=== PATIENT | male | born 1945 | race Caucasian/White ===

== ENCOUNTER 2018-03-07 08:43 | Emergency (ER) | payer MEDICARE, SELFPAY ==
[2018-03-07 08:45] VITALS: BP 151/104; PULSE 72; RESP 18; TEMP 36.7; O2SAT 96; BMI 35.6
--- NOTE | 2018-03-07 08:59 | CT_ITS ---
STUDY: CT ABDOMEN AND PELVIS WITH CONTRAST REASON FOR EXAM: Male, 72 years old. Low back pain. History of aortic aneurysm graft, looking for complications. RADIATION DOSAGE (If Supplied By Facility): CTDIvol = ( 36.48 ) mGy, DLP = ( 1317.71 ) mGycm TECHNIQUE: Transaxial images were obtained from the dome of the diaphragm to the symphysis pubis without oral contrast. 100CC ml of Isovue 370 contrast was administered. Sagittal and coronal images were reconstructed. Individualized dose optimization techniques were used for this CT. COMPARISON: None. FINDINGS: The visualized lung bases are unremarkable. Diffuse coronary artery calcifications are present. Normal liver. Normal gallbladder and extrahepatic biliary system. Normal spleen. Normal pancreas. Normal bilateral adrenal glands. Normal right kidney. Normal left kidney. Normal visualized stomach. Normal small intestine. Normal colon. The appendix is visualized and appears normal. There is an anterior abdominal aortic stent extending to the iliac arteries demonstrating patency of contrast extending to the femoral arteries. Inferior abdominal aortic aneurysm surrounding the stents measures 4.9 cm in diameter. The aneurysm surrounding the left iliac artery measures 2.8 cm with noted adequate internal flow. There is luminal narrowing of the proximal posterior left external iliac artery. Normal inferior vena cava. Normal retroperitoneum. Normal urinary bladder. There is enlargement of the prostate gland. There is a bilateral inguinal hernia containing adipose tissue. There is near complete disc space loss at L2-3 with mild anterolisthesis and spondylolysis at this level. CT/Abdomen/Pelvis W IV Cont ONLY IMPRESSION: 1. Abdominal aortic graft extending to the iliac arteries with no evidence of extravasation adequate flow extending to the femoral arteries bilaterally. The infrarenal aortic aneurysm surrounding the stented region measures 4.9 cm. Otherwise no evidence of acute intra-abdominal process. Electronically Signed: Corbin Escamilla DO at 10:54 EDT , Service support ,
--- NOTE | 2018-03-07 09:04 | ED.DCSUM_ITS ---
- ER Visit Summary Date of Service: 03/07/18 Chief Complaint: [] Pain abdominal pain started 5 AM today History of Present Illness: The patient is a 72 M [] an aorto by femoral graft bypass 1 year ago, CABG about 25 years ago, chronic back pain related to lumbar disc disease, he basically reports his chronic low back pain seem to intensify at 5 AM for unspecified reasons he is having no numbness or weakness or paresthesias but pain in the lumbar back that shoots into the anterior abdominal region. He indicates he does not feel this if he has any signs of arterial insufficiency or occlusion his feet feel warm and well perfused he has had no chest pain or vomiting he has had no trauma to his back normal bowel bladder habits other than report he feels slightly constipated, the pain was intense intensity that he came in for evaluation he believes that the aortic aneurysm graft was placed and then he believes he had bilateral femoral grafting Patient has had severe back pain in the past has been told by his clinical physicians he has lumbar spine degenerative disc disease, they were basically waiting for him to heal from his abdominal aortic aneurysm graft and abdominal hernia repair surgery and then pursue other management options, his back pain status has been stable and exacerbated at 5 AM this morning for unspecified reasons Physical Examination: [] L signs are within normal range she is in no distress she is perfectly still HEENT is unremarkable his lungs are clear the heart tones are normal the abdomen is soft he indicates his abdominal hernia surgery he has a mesh over his umbilicus this area is really unremarkable there is no rebound guarding organomegaly the abdomen is slightly distended I do not feel pulsatile mass, his lower extremities appear well-perfused he has no obvious signs of occlusion his femoral pulses are hard to palpate but appear to be 1+ he is able to stand and walk without difficulty he can heel raise toe raise bend his knees there is no signs of cauda equina he has no perineal anesthesia, the lumbar back he has pain over the mid lumbar back his flanks are unremarkable the C-spine T-spine are unremarkable with no trauma to the back Test Results: [] Emergency Department Course and Treatment: [] rather extensive we will obtain CT scanning to check for graft patency or other complications pain management screening labs The patient's abdominal CT with contrast shows that the aortic abdominal aneurysm graft and resulting vascular grafts are all patent and there is no signs of leak or hemorrhage the other intra-abdominal content organs are all unremarkable so the abdominal pelvic CT shows nothing acute see that report, we had them reconstruct the lumbar spine films and the CT lumbar spine shows severe diffuse DJD which the patient has had before Reevaluation is feeling much better he is moving all 4 extremities he has been up walking about he understands test results he wants to go home at this time he is taking aspirin related to platelet therapy, he will take Tylenol for the pain for Tylenol does not help he will be given [place] to use as needed and otherwise follow-up with [facility] physicians and return for change in symptoms again he has no signs of cauda equina back fracture etc. he has had this in the past markedly improved now Treatment Plan: [] Disposition: [] Home stable Impression: [] Lumbar back strain history of diffuse lumbar back degenerative disorder This note was generated with [employer] dictation software. It may contain incorrect words, spelling, and punctuation that were not noted in review of the chart prior to signing ED Disposition - Plan for ED Patient: Chief Complaint: Back Referrals: Silvestre Young III, MD [Primary Care Provider] -
[2018-03-07] MEDS: morphine 8 MG/ML Syringe IV (09:22)
[2018-03-07] MEDS: Ondansetron 4 MG/2 ML Vial IV (09:22)
[2018-03-07 09:29] LABS: Basophil# 0.01 X10^3/uL; Basophil% 0.1 % (0-1); Eosinophil# 0.13 X10^3/uL; Eosinophils% 1.4 % (0-5); Hematocrit 42.8 % (40-54); Hemoglobin 14.5 g/dl (13.0-16.5); Lymphocyte % 52.2 % (19-41); Mean Corp Hgb Conc 33.9 g/gl (32-36); Mean Corpuscular Hgb 31.9 pg (27.0-32.0); Mean Corpuscular Volume 94.1 fL (80-94); Mean Platelet Vol. 9.5 fl (6.2-12.0); Monocyte# 0.41 X10^3/uL; Monocyte% 4.3 % (0-10); Neutrophil # 4.01 X10^3/uL (2.7-7.7); Neutrophil % 41.9 % (47-70); Platelet Count 92 K/mm3 (150-450); RBC Distribution Width CV 13.2 % (11.6-14.6); RBC Distribution Width SD 45.2 fl (35.1-43.9); Red Blood Count 4.55 M/mm3 (4.6-6.2); White Blood Count 9.6 K/mm3 (4.4-11.0)
[2018-03-07 09:30] LABS: POSITIVE COUNT NO; POSITIVE DIFFERENTIAL NO; POSITIVE MORPHOLOGY NO
[2018-03-07 09:48] LABS: AST(SGOT) 29 U/L (15-37); Alanine Aminotransfer ALT/SGPT 33 U/L (16-61); Alkaline Phosphatase 92 U/L (45-117); Anion Gap 4 (5-15); BUN 22 mg/dL (7-18); BUN/Creat Ratio 19.6 RATIO (10-20); Bilirubin, Direct 0.24 mg/dL (0.00-0.30); Calcium,Total 8.4 mg/dL (8.5-10.1); Chloride 110 mmol/L (98-107); Creatinine, Serum 1.12 mg/dL (0.70-1.30); EST Glomerular Filtration Rate 68 mL/min (>60); Est Glom Filt Rate - Afr Amer 82 mL/min (>60); Estimated Creatinine Clearance 65.39 ml/min; Globulin 3.1 g/dL (2.2-4.2); Glucose 111 mg/dL (74-106); Lipase 214 U/L (73-393); Potassium 4.2 mmol/L (3.5-5.1); Protein, Total 7.1 g/dL (6.4-8.2); Sodium Level 142 mmol/L (136-145)
--- NOTE | 2018-03-07 10:00 | CT_ITS ---
STUDY: CT LUMBAR SPINE WITHOUT CONTRAST REASON FOR EXAM: Male, 72 years old. Low back pain. RADIATION DOSAGE (If Supplied By Facility): Reconstruction TECHNIQUE: The patient was scanned in a multi detector CT scanner. High resolution transaxial imaging was performed. Images were obtained from lower thoracic to sacrum. Sagittal and coronal images were reconstructed. Individualized dose optimization techniques were used for this CT. COMPARISON: None FINDINGS: Normal lumbar lordosis. There is no substantial scoliosis. Normal vertebrae of the lumbar spine. L1-2: Normal endplates. Normal disc height and morphology. Normal bilateral facet joints. Normal central canal and bilateral lateral recesses. Normal bilateral intervertebral neural foramina. L2-3: There is near complete loss of disc space with endplate sclerosis. There is mild anterolisthesis uncovering the disc space resulting in moderate to severe bilateral foraminal narrowing at this level. There is compounding spondylolysis of the pars interarticularis. L3-4: Decreased disc space and bilateral spondylolysis with grade 1 mild anterolisthesis resulting in moderate to severe bilateral foraminal narrowing. L4-5: Mild decreased disc space and circumferential disc bulge without associated spinal canal narrowing or foraminal narrowing. L5-S1: Mild degenerative disc changes with broad-based disc bulge and compounding facet arthropathy resulting in moderate to severe bilateral foraminal narrowing. There is bilateral spondylolysis at this level. Normal visualized paraspinous soft tissue structures. CT/Spine Lumbar without Contrast IMPRESSION: 1. Multilevel spondylolysis at L1/2, L2/3, and L5/S1. 2. L1/2 loss of disc space and Modic endplate changes with grade 1 anterolisthesis resulting in moderate bilateral foraminal narrowing. 3. L3/4 mild anterolisthesis secondary to spondylolysis with resultant moderate to severe bilateral foraminal narrowing. 4. L4/5 broad-based disc bulge resulting in severe bilateral foraminal narrowing with compounding spondylolysis. Electronically Signed: Corbin Escamilla DO at 12:28 EDT , Service support ,
[2018-03-07] MEDS: 0.9% Normal Saline 1,000 ML 125 ML IV (11:17)
--- NOTE | 2018-03-07 11:18 | ED.RN ---
AT 1117 THE MORPHINE 4MG IVP WAS GIVEN DUE TO PT'S C/O PAIN AT 8. INITIAL DOSE WAS FOR 8 MG IVP AND ONLY 4MG WAS GIVEN BY KOJO CLARKE RN.
[2018-03-07 11:22] VITALS: BP 131/70; PULSE 58; RESP 16; O2SAT 95
[2018-03-07 11:22] LABS: Bacteria 0 SEEN /hpf (None Seen); Mucous, Urine 0 SEEN /hpf (<or=2+); Red Blood Cells-Urine 0 SEEN /hpf (0-5); Squamous Epithelial Cells - UA 0 SEEN /hpf (0-5)
[2018-03-07 11:23] LABS: Color, Urine Yellow (Yellow); Glucose, Dipstick Normal (Normal); Ketone-Dipstick Negative (Negative); Leukocyte Esterase-Dipstick 25 /ul (Negative); Nitrite-Dipstick Negative (Negative); Occult Blood-Urine 25 /ul (Negative); Protein-Dipstick 15 mg/dl (Negative); Urine Bilirubin Dipstick Negative (Negative); Urine Clarity Clear (Clear); Urine Urobilinogen Normal (Normal); Urine pH 6.5 (5.0 - 8.0)
[2018-03-07 11:29] LABS: White Blood Cells 0-5 SEEN /hpf (0-5)
--- NOTE | 2018-03-07 12:40 | ED.DEP ---
ED Disposition - Plan for ED Patient: Chief Complaint: Back Instructions: ED Spasm Back No Trauma Prescriptions: Hydrocodone Bitart/Apap 5-325 [[place] 5/325] 1 - 2 tab PO Q4H PRN PRN #12 tab PRN Reason: Pain Referrals: Silvestre Young III, MD [Primary Care Provider] -
[2018-03-07 13:00] VITALS: BP 102/75; PULSE 56; RESP 16; O2SAT 96
[2018-03-07 13:08] VITALS: BP 102/75; PULSE 56; RESP 16; O2SAT 96
== END 2018-03-07 13:20 | disposition home or self-care (01) ==
LOC: ED 09:21
PROVIDERS: Emergency Provider Emergency Medicine; Family Provider Family Medicine; PCP Family Medicine
DX: S39.012A Strain of muscle, fascia and tendon of lower back, initial encounter (principal); M51.36 Other intervertebral disc degeneration, lumbar region; M54.5 Low back pain; G89.29 Other chronic pain; I25.10 Atherosclerotic heart disease of native coronary artery without angina pectoris; Z95.1 Presence of aortocoronary bypass graft; Z79.82 Long term (current) use of aspirin; Z79.899 Other long term (current) drug therapy; X58.XXXA Exposure to other specified factors, initial encounter; Y93.9 Activity, unspecified; Y92.9 Unspecified place or not applicable; Y99.9 Unspecified external cause status
CPT/HCPCS: 72131; 74177; 80048; 80076; 81001; 83690; 85025; 96361; 96374; 96375; 99283; J7030; J7040; Q9967; J2405

== ENCOUNTER 2018-05-13 11:30 | Outpatient (RCR) | payer MEDICARE, SELFPAY ==
--- NOTE | 2018-03-17 11:00 | HP.PTEVAL_ITS ---
Patient's Visit Information SILVIANO GONZALEZ is a 72 year old M referred to Physical Therapy by Silvestre Young with a diagnosis of LUMBAR BACK PAIN. Date of Evaluation: 03/17/18 Physical Therapist: Luz Nelson - Visit Plan Frequency: 2-3x /Week Duration: 4-6 Weeks Plan: AQUATIC THERAPY FOR POSTURE CORRECTION/STRENGTHENING, INSTRUCTION IN APPROPRIATE BODY MECHANICS AND ACTIVITY MODIFICATIONS. DLS STARTING WITH A NEUTRAL SPINE PROGRESSING ROM TOLERATED. SID LE ROM, STRETCHING AND STRENGTHENING. HEP INSTRUCTION. - Subjective Subjective: Diagnosis: Work/Leisure: RETIRED. Disability: NO. Present symptoms: LOW BACK PAIN THAT RADIATES LATERALLY AND INTO ABDOMEN. Present since: February. Pain Scale: WORST 8/10, LEAST 0/10. Currently: . Commenced as a result of: LONG DRIVE BACK FROM [place] TAKING A BREAK EVERY 2 HOURS FOR 2 DAYS. Symptoms at onset: SAME. Worse: PRONLONGED STANDING AND WALKING. WORSE IN THE MORNING. Better: SKTC, LTR, SWIMMING, SITTING, LYING DOWN. Disturbed sleep: YES - BOTHERSOME TO GET TO SLEEP. Previous history/Previous treatment: CHRONIC LOW BACK PAIN. PT. CHIROPRACTOR. NO MASSAGE THERAPY. NO INJECTION. NO BACK SURGERY. Coughing/ sneezing/straining: NO. Gait: PAINFUL TO WALK. DECREASED CADANCE. MORE OFF BALANCE LATELY. Difficulty initiating urinatin: NO. Accidents: NO. Unexplained weight loss: NO. Imaging: February - MRI: SEVERE ARTHRITIS IN LUMBAR AREA. NO OTHER CHANGES. PMH: HTN, HIGH CHOLESTEROL. NO STROKE. 2 HEART ATTACKS. Recent major surgery: MOST RECENT WAS ABOUT 18 MONTHS AGO - 3 STENTS IN [place]. ABDOMINAL HERNIA REPAIR. QUADRUPLE BYPASS 26 YEARS AGO. OTHER: PATIENT REPORTS HE HAS NOT SEEN A SURGEON AND SURGERY HAS NOT BEEN RECOMMENDED. - Objective Sitting Posture: POOR. Standing Posture: POOR. Lordosis: REDUCED. Lateral shift: RIGHT. Relevant shift: NO. Active Correction of posture: NE. Other Observations: INDEP GAIT INTO PT WITH INCREASED TRUNK FLEXION, DECREASED CADANCE AND DECREASED SID STRIDE LENGTH. NO LOB. SID LE EDEMA. Motor deficit : SID LE WEAKNESS IN HIPS RIGHT > LEFT. RIGHT HIP 3+/5, LEFT HIP 4-/5. SID KNEE EXT/FLEX 5/5. SID ANKLE DORSIFLEX 5/5. Sensory deficit: SID LE LIGHT TOUCH SENSATION IS INTACT AND SYMMETRICAL. ROM deficit: TIGHT SID HIP FLEXORS , HAMSTRINGS AND GASTROC SOLEUS COMPLEX'S. Dural Signs: NEGATIVE SID LE'S. Lumbar mvmt loss: flex - MOD. ext - MELIDA. R SG - MELIDA. L SG - MELIDA. SID SG TESTING PROVOKES INCREASED LBP AND LEFT SG IS RESTRICTED MORE THAN RIGHT. Core strength: POOR. Palpation: NO ACUTE TENDERNESS WITH LUMBOSACRAL AND SID HIP PALPATION. - Goals Goal 1:: DECREASE C/O BACK PAIN Goal Time Frame: 4-6 Weeks Goal 2:: IMPROVE PERSONAL CARE, LIFITNG, WALKING, SITTING, STANDING, AND ADL FUNCTION Goal Time Frame: 4-6 Weeks Goal 3:: INSTRUCT IN PROPHYLAXIS Goal Time Frame: 4-6 Weeks - Rehabilitation Potential Rehabilitation Potential: Fair - Anticipated Interventions Patient/Client Instruction: Educate patient on: Condition, Plan of Care, Risk Factors, Benefits of Fitness Program For the Purpose of:: To improve self management Therapeutic Exercise to Include: Strength training, Body mechanics, Postural training, Flexibilty training, Gait and locomotor training, In an aquatic setting, Active ROM, Dynamic Lumbar Stabilization For the Purpose of:: To decrease pain, To increase ROM, To improve muscle performance and motor function, To increase tolerance to activity/condition/ position, To improve performance and independence with ADL's, To improve ability of physical actions for home/community/work/leisure, To improve gait and locomotor functions Thank you for the opportunity to evaluate your patient. For Medicare and Medicare HMO plans, please review the plan of care and approve it. It will need to be FAXED BACK to us at [phone] for Medicare purposes. Please let me know if there are questions or concerns regarding this plan of care. Physician Signature: Date:
--- NOTE | 2018-05-13 12:02 | HP.PTDCSUM ---
HP - PT D/C Summary It has been my pleasure to treat SILVIANO GONZALEZ under orders from Silvestre Young, for the diagnosis of LUMBAR BACK PAIN for a total of 10 visit(s). Discharge Date: Please see the following information for a summary of their discharge status. - Subjective Subjective: PATIENT REPORTS HE CAN MOVE MORE FREELY NOW. 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 HE REPORTS HIS FLEXABILITY, MOBILITY AND ACTIVITY LEVEL IS BETTER. HE PLANS TO KEEP MOVING. PATIENT PLANS TO CONTINUE AT [employer]. PATIENT REPORTS HE HAS REALLY LEARNED A LOT. - Pain Lumbar spine Pain Intensity (Out of 10): 0 - Overall Improvement % Improvement: 100 - Objective Objective/Function: ALL GOALS MET. THIS PATIENT AMBULATES INDEP'LY INTO PT TODAY WITHOUT ANY ASSISTIVE DEVICES AND NO LOSS OF BALANCE. HE DENIES PAIN. UPON EXAM TODAY, Motor deficit: SID LE'S 5/5 WITH MMT'ING EXCEPT HIPS - RIGHT 4-/5 AND LEFT 4/5. ROM deficit: TIGHT SID HIP FLEXORS, HAMSTRINGS AND GASTROC SOLEUS COMPLEX'S CONTINUES. Dural Signs: NEGATIVE SID LE'S. Lumbar mvmt loss: flex - MOD. ext - MELIDA. R SG - MELIDA. L SG - MELIDA. PATIENT DENIES PAIN WITH LUMBAR ROM TESTING ALL PLANES BUT SIGNIFICANT TIGHTNESS REMAINS. Palpation: NO ACUTE TENDERNESS WITH LUMBOSACRAL AND SID HIP PALPATION. BACK OSWESTRY SCORE HAS IMPROVED FROM 13 TO 6. - Goals Goal 1:: DECREASE C/O BACK PAIN Goal Progress: Goal Met Goal 2:: IMPROVE PERSONAL CARE, LIFITNG, WALKING, SITTING, STANDING, AND ADL FUNCTION Goal Progress: Goal Met Goal 3:: INSTRUCT IN PROPHYLAXIS Goal Progress: Goal Met - Plan Plan: D/C TO [facility] - PATIENT IS AGREEABLE. - D/C Information If there are questions or concerns regarding this patient's physical therapy, please feel free to call me at [phone]. Thank you for the referral of this patient. Sincerely, Luz Nelson
== END 2018-05-13 16:18 | disposition home or self-care (01) ==
LOC: PT 11:30
PROVIDERS: Family Provider Family Medicine; PCP Family Medicine; Visit Provider Family Medicine
DX: M54.5 Low back pain (principal)
CPT/HCPCS: 97113; 97162; 97164; 97530

== ENCOUNTER 2019-08-19 14:48 | Outpatient (RCR) | payer SELFPAY | END 2019-08-23 23:59 | LOC: NS 14:48 | PROVIDERS: Family Provider Family Medicine; PCP Family Medicine; Visit Provider Family Medicine | DX: Z71.3 Dietary counseling and surveillance (principal); E66.9 Obesity, unspecified; I25.10 Atherosclerotic heart disease of native coronary artery without angina pectoris | CPT/HCPCS: 97802 ==

== ENCOUNTER 2019-09-02 11:28 | Outpatient (RCR) | payer SELFPAY | END 2019-09-23 23:59 | LOC: NS 11:28 | PROVIDERS: Family Provider Family Medicine; PCP Family Medicine; Visit Provider Family Medicine | DX: E66.9 Obesity, unspecified (principal) | CPT/HCPCS: 97803 ==

== ENCOUNTER → 2020-04-07 08:17 | Outpatient (CLI) | payer MEDICARE, SELFPAY ==
[2020-04-04 11:05] VITALS: BMI 34.2
[2020-04-07 09:33] LABS: AST(SGOT) 31 U/L (15-37); Alanine Aminotransfer ALT/SGPT 45 U/L (16-61); Albumin, Serum 3.8 g/dL (3.2-5.0); Alkaline Phosphatase 87 U/L (45-117); Bilirubin, Direct 0.19 mg/dL (0.00-0.30); Cholesterol 136 mg/dL (200); Globulin 3.1 g/dL (2.2-4.2); High Density Lipoprotein 51 mg/dL; Protein, Total 6.9 g/dL (6.4-8.2); Triglycerides 81 mg/dL; Very Low Density Lipoprotein 16 mg/dL (5-40)
== END ==
PROVIDERS: PCP Family Medicine; Referring Provider Internal Medicine Cardiovascular Disease; Visit Provider Internal Medicine Cardiovascular Disease
DX: E78.5 Hyperlipidemia, unspecified (principal); I25.10 Atherosclerotic heart disease of native coronary artery without angina pectoris; I25.2 Old myocardial infarction
CPT/HCPCS: 36415; 80061; 80076

== ENCOUNTER → 2020-05-02 09:18 | Outpatient (CLI) | payer MEDICARE, SELFPAY ==
[2020-04-04 11:05] VITALS: BMI 34.2
--- NOTE | 2020-05-02 09:19 | STEWCON_ITS ---
Reason For Study: CAD; S/P CABG Stress Results Protocol: Modified Simeon Protocol With Definity Maximum Predicted HR: 144 bpm Target HR: 122 bpm % Maximum Predicted HR: 97 % DurationHeart Rate Stage (mm:ss) (bpm) BP Comment Baseline 68 122/78No Chest Pain; 3 ML Diluted Definity Modified Simeon Protocol Stage 0 3:00 68 122/78No Chest Pain Modified Simeon Protocol Stage 1/2 3:00 140 72/ No Chest Pain; Mild Dyspnea Modified Simeon Protocol Stage 1 1:11 120 / No Chest Pain; Mod Dyspnea Recovery 68 124/74No Chest Pain Stress Duration: 7:11 mm:ss Maximum Stress HR: 140 bpm METS: 4 Baseline Echocardiogram Findings The estimated ejection fraction is 55 %. Stress Echo Wall motion Data Resting WM Intermediate WM Stress WM Resting Wall Motion Wall Motion Stress No regional wall motion Anterio-Basal: Mildly abnormalities noted. hypokinetic. Basal anteroseptal: Mildly hypokinetic. Mid-Anterior : Mildly hypokinetic. EKG Data The baseline ECG displays normal sinus rhythm. The maximum heart rate attained was 120 beats per minute. This was 83% of maximum predicted heart rate. The patient exercised into stage 1 of the Simeon protocol. The stress ECG displays diffuse abnormal ST segments. No clinical angina was noted. Interpretation Summary The estimated ejection fraction is 55 %. Anterio-Basal: Mildly hypokinetic Basal anteroseptal: Mildly hypokinetic Mid-Anterior : Mildly hypokinetic Abnormal, adequate, modified Simeon treadmill echocardiogram. Positive for ischemia by EKG and echocardiographic criteria. No anginal symptoms noted. Rare PAC and PVCs noted. Patient developed [address] diffuse inferior lateral ST segment depression at 7 minutes 11 seconds into modified Simeon protocol which persisted until 2 minutes 50 seconds into recovery. In addition he had evidence of possible anteroseptal hypokinesis. Final LVEF of 45 to 50%. Test terminated due to dyspnea. Poor echo windows requiring Definity agent which may affect results of the test. Patient tolerated procedure well. No complications. The study was technically difficult. Contrast injection was performed. Ordering Physician: Rogelio Barnett Referring Physician: Silvestre Young III Performed By: Gigi Hawkins RCS
== END ==
PROVIDERS: PCP Family Medicine; Referring Provider Internal Medicine Cardiovascular Disease; Visit Provider Internal Medicine Cardiovascular Disease
DX: I25.10 Atherosclerotic heart disease of native coronary artery without angina pectoris (principal); I25.2 Old myocardial infarction; Z95.1 Presence of aortocoronary bypass graft; E78.5 Hyperlipidemia, unspecified
CPT/HCPCS: 93017; 93350; Q9957; A4216; C8928

== ENCOUNTER 2020-05-17 07:56 | Day surgery (SDC) | payer MEDICARE, SELFPAY ==
[2020-04-04 11:05] VITALS: BMI 34.2
--- NOTE | 2020-05-15 10:13 | RAD_ITS ---
STUDY: X-RAY CHEST REASON FOR EXAM: Male, 74 years old. Pre-op for heart catheter TECHNIQUE: PA and lateral views of the chest. COMPARISON: 11/04/2016 FINDINGS: There are chronic interstitial changes of the lungs. There is no demonstrated pleural abnormality. Sternal cerclage wires and vascular clips are present from a prior sternotomy and coronary artery bypass graft procedure (CABG). Normal mediastinum and aiden. Normal visualized pulmonary arteries. Normal visualized aortic arch and descending thoracic aorta. There are diffuse degenerative changes of the visualized thoracic spine. There is degenerative osteoarthritis of the bilateral shoulders. There is no demonstrated abnormality of the visualized soft tissue structures of the upper abdomen. RAD/Chest PA and Lateral IMPRESSION: Chronic interstitial changes, no superimposed acute pulmonary process. Electronically Signed: Cameron Joaquin MD at 11:20 EDT , Service support ,
[2020-05-15 11:35] LABS: Hematocrit 42.2 % (40-54); Hemoglobin 14.1 g/dL (13.0-16.5); Mean Corp Hgb Conc 33.4 g/dL (32-36); Mean Corpuscular Hgb 31.9 pg (27.0-32.0); Mean Corpuscular Volume 95.5 fL (80-94); Platelet Count 100 K/mm3 (150-450); Red Blood Count 4.42 M/mm3 (4.6-6.2); White Blood Count 12.3 K/mm3 (4.4-11.0)
[2020-05-15 11:43] LABS: International Normalized Ratio 1.2; Partial Thromboplast Time 31.5 Seconds (24.1-36.2); Prothrombin Time (Protime)PT. 14.4 SECONDS (11.7-14.9)
[2020-05-15 11:50] LABS: Anion Gap 5 (5-15); BUN 19 mg/dL (7-18); BUN/Creat Ratio 18.4 RATIO (10-20); Chloride 108 mmol/L (98-107); Creatinine, Serum 1.03 mg/dL (0.70-1.30); Glucose 125 mg/dL (74-106); Potassium 3.8 mmol/L (3.5-5.1); Sodium Level 141 mmol/L (136-145)
[2020-05-16 12:16] VITALS: BMI 34.2
--- NOTE | 2020-05-16 13:27 | HP.PCM_ITS ---
History and Physical Date of Admission: 05/16/20 SILVIANO GONZALEZ, is a 74 M who is here today to undergo a diagnostic heart cath for an abnormal stress test. He recently established with us for coronary artery disease. He is a former patient of Dr. Motta. The patient has a history of hypertension, hypercholesterolemia, nondiabetic, peripheral vascular disease with carotid artery stenosis as well as AAA stent graft on 11/07/2016 at [facility] with Dr Young,, coronary artery disease status post myocardial infarction 1990 with balloon angioplasty only to his right coronary artery. He then had a repeat myocardial infarction after a stress test in 1991 and then underwent four-vessel bypass surgery at [place] with unknown grafts in 1991, status post myocardial infarction on 12/20/2019 while down in [place] after undergoing cervical neck surgery. Due to his recent surgery he did not undergo a catheterization. In addition he has chronic lymphocytic leukemia and gets treated in [place]. His EKG postoperatively demonstrated sinus tachycardia with anterolateral ST segment depression and T wave inversion superimposed on baseline old inferior wall myocardial infarction. His EKG eventually normalized and on 12/24/2019 had gone back to normal without evidence of ST segment changes. Peak troponin T was 0.76. His most recent noninvasive non-walking nuclear stress test took place the [facility] on 10/01/2016 which was negative for inducible ischemia. His most recent echocardiogram at an outside facility in [place] after his neck surgery on 12/11/2019 showed an EF of 50 to 55%, technically difficult study, negative bubble study, no wall motion abnormalities noted. Patient presents for cardiac evaluation, and denies any chest pain, angina, shortness of breath or dyspnea on exertion either prior to or subsequent to his neck surgery. He is taking and tolerating his medicines well. Pt is a former smoker, quit tobacco 2009 after 25 pack year history. Stress echo demonstrated estimated ejection fraction is 55 %. Anterio-Basal: Mildly hypokinetic Basal anteroseptal: Mildly hypokinetic Mid-Anterior : Mildly hypokinetic Abnormal, adequate, modified Simeon treadmill echocardiogram. Positive for ischemia by EKG and echocardiographic criteria. No anginal symptoms noted. Rare PAC and PVCs noted. Patient developed 1 mm diffuse inferior lateral ST segment depression at 7 minutes 11 seconds into modified Simeon protocol which persisted until 2 minutes 50 seconds into recovery. In addition he had evidence of possible anteroseptal hypokinesis. Final LVEF of 45 to 50%. Test terminated due to dyspnea. Poor echo windows requiring Definity agent which may affect results of the test. Patient tolerated procedure well. No complications. The study was technically difficult. Contrast injection was performed. Because of this he will undergo a heart cath. Intake Intake Visit Reasons: Amb Documentation Allergies Penicillins Allergy (Verified 03/07/18 08:44) Hives doxycycline Adverse Reaction (Intermediate, Verified 04/03/20 15:39) GI intolerance PFSH Medical History Abnormal stress echo (Acute) Chronic lymphocytic leukemia (Chronic) Cervical stenosis of spinal canal (Chronic 12/10/19) Arteriosclerosis of coronary artery in patient with history of myocardial in farction (Chronic) History of WA (myocardial infarction) (Chronic 12/20/19) Carotid artery stenosis without cerebral infarction (Chronic) Essential hypertension (Chronic) Hyperlipidemia (Chronic) Surgical History S/P CABG x 4 (Chronic 1991) History of endovascular stent graft for abdominal aortic aneurysm (AAA) (Chronic 11/07/16) History of cervical spinal surgery (Chronic 12/20/19) Social History Smoking Status: Former smoker Cardiology Exam Const Appearance: cooperative, no acute distress and well developed Orientation: alert, awake and oriented x3 Head Head: normocephalic and atraumatic Mouth: moist mucous membranes Eyes General: appearance normal, both eyes and all related structures Conjunctivae: conjunctivae normal Pupils: PERRL EOM: EOM intact bilaterally Neck Neck: normal visual inspection, no lymphadenopathy and no JVD Carotids: Negative bruit Neck Mass: Negative Neck mass Chest Chest inspection: normal inspection of the chest and symmetric chest movement Auscultation: Bilateral: Clear to Auscultation Cardio Palpation: normal PMI Rate: regular rate Rhythm: regular rhythm Heart sounds: S1 normal and S2 normal; negative rub, gallop or murmur GI GI: normal to inspection, soft, no hepatosplenomegaly and bowel sounds present; negative tender Neuro General: alert, awake, oriented x3, CN's II-XI intact bilaterally and moves all extremities Extremities Pulses: Normal: Right Posterior Tibial Pulse, Left Posterior Tibial Pulse, Right Radial Pulse, Left Radial Pulse Lower Extremity Edema: None: Bilateral Psych Psychological: normal affect Assessment & Plan Problems 1. Abnormal stress echo R94.39 2. Arteriosclerosis of coronary artery in patient with history of myocardial infarction I25.10; I25.2 Apparently pt had previous WA prior to CABG in 1991 3. S/P CABG x 4 Z95.1 Done @ [facility], we do not have report. 4. History of endovascular stent graft for abdominal aortic aneurysm (AAA) Z95.[address] Yan Young, 11/07/2016 @ [facility] 5. Essential hypertension I10 6. Hyperlipidemia E78.5 Plan - DELON Story With his abnormal stress test he will undergo a diagnostic heart cath today. Based on findings he will follow up accordingly. Procedure Criteria: Yes Elective The surgeon/proceduralist and patient have discussed in detail the risk of exposure to and/or potential harm posed by the COVID-19 virus with having a surgery/procedure at this time versus the risk of delaying the surgery/procedure. It is not possible to know either the risk of delaying the surgery or procedure or chance of getting an infection with perfect accuracy, but a joint decision was made between the patient and the surg sugar/proceduralist to proceed at this time with the scheduled surgery/procedure as indicated on the consent form.
[2020-05-17] VITALS (21 sets, daily range): BP systolic 101–136; BP diastolic 50–84; PULSE 51–65; RESP 12–23; TEMP 36.7–36.9; O2SAT 94–98; BMI 34.4
--- NOTE | 2020-05-17 09:16 | HP.PCM_ITS ---
Problem List (1) Abnormal stress echo Status: Acute (2) Arteriosclerosis of coronary artery in patient with history of myocardial infarction Status: Chronic Comment: Apparently pt had previous AL prior to CABG in 1991 (3) History of endovascular stent graft for abdominal aortic aneurysm (AAA) Status: Chronic Comment: Per Dr. Yan Young, 11/07/2016 @ [facility] (4) Hyperlipidemia Status: Chronic History and Physical Date of Admission: 05/17/20 LIVE [facility] History and Physical (Generic) Patient Name: SILVIANO GONZALEZ Date of : 1945 Patient Status: Surgical Day Care Attending Provider: Rogelio Barnett Date: 05/16/20 13:27 Initialization Date: 05/16/20 13:27 History and Physical Date of Admission: 05/16/20 SILVIANO GONZALEZ, is a 74 M who is here today to undergo a diagnostic heart cath for an abnormal stress test. He recently established with us for coronary artery disease. He is a former patient of Dr. Motta. The patient has a history of hypertension, hypercholesterolemia, nondiabetic, peripheral vascular disease with carotid artery stenosis as well as AAA stent graft on 11/07/2016 at [facility] with Dr Young,, coronary artery disease status post myocardial infarction 1990 with balloon angioplasty only to his right coronary artery. He then had a repeat myocardial infarction after a stress test in 1991 and then underwent four-vessel bypass surgery at [place] with unknown grafts in 1991, status post myocardial infarction on 12/20/2019 while down in [place] after undergoing cervical neck surgery. Due to his recent surgery he did not undergo a catheterization. In addition he has chronic lymphocytic leukemia and gets treated in [place]. His EKG postoperatively demonstrated sinus tachycardia with anterolateral ST segment depression and T wave inversion superimposed on baseline old inferior wall myocardial infarction. His EKG eventually normalized and on 12/24/2019 had gone back to normal without evidence of ST segment changes. Peak troponin T was 0.76. His most recent noninvasive non-walking nuclear stress test took place the [facility] on 10/01/2016 which was negative for inducible ischemia. His most recent echocardiogram at an outside facility in [place] after his neck surgery on 12/11/2019 showed an EF of 50 to 55%, technically difficult study, negative bubble study, no wall motion abnormalities noted. Patient presents for cardiac evaluation, and denies any chest pain, angina, shortness of breath or dyspnea on exertion either prior to or subsequent to his neck surgery. He is taking and tolerating his medicines well. Pt is a former smoker, quit tobacco 2009 after 25 pack year history. Stress echo demonstrated estimated ejection fraction is 55 %. Anterio-Basal: Mildly hypokinetic Basal anteroseptal: Mildly hypokinetic Mid-Anterior : Mildly hypokinetic Abnormal, adequate, modified Simeon treadmill echocardiogram. Positive for ischemia by EKG and echocardiographic criteria. No anginal symptoms noted. Rare PAC and PVCs noted. Patient developed 1 mm diffuse inferior lateral ST segment depression at 7 minutes 11 seconds into modified Simeon protocol which persisted until 2 minutes 50 seconds into recovery. In addition he had evidence of possible anteroseptal hypokinesis. Final LVEF of 45 to 50%. Test terminated due to dyspnea. Poor echo windows requiring Definity agent which may affect results of the test. Patient tolerated procedure well. No complications. The study was technically difficult. Contrast injection was performed. Because of this he will undergo a heart cath. Intake Intake Visit Reasons: Amb Documentation Allergies Penicillins Allergy (Verified 03/07/18 08:44) Hives doxycycline Adverse Reaction (Intermediate, Verified 04/03/20 15:39) GI intolerance [facility] Medical History Abnormal stress echo (Acute) Chronic lymphocytic leukemia (Chronic) Cervical stenosis of spinal canal (Chronic 12/10/19) Arteriosclerosis of coronary artery in patient with history of myocardial infarction (Chronic) History of AL (myocardial infarction) (Chronic 12/20/19) Carotid artery stenosis without cerebral infarction (Chronic) Essential hypertension (Chronic) Hyperlipidemia (Chronic) Surgical History S/P CABG x 4 (Chronic 1991) History of endovascular stent graft for abdominal aortic aneurysm (AAA) (Chronic 11/07/16) History of cervical spinal surgery (Chronic 12/20/19) Social History Smoking Status: Former smoker Cardiology Exam Const Appearance: cooperative, no acute distress and well developed Orientation: alert, awake and oriented x3 Head Head: normocephalic and atraumatic Mouth: moist mucous membranes Eyes General: appearance normal, both eyes and all related structures Conjunctivae: conjunctivae normal Pupils: PERRL EOM: EOM intact bilaterally Neck Neck: normal visual inspection, no lymphadenopathy and no JVD Carotids: Negative bruit Neck Mass: Negative Neck mass Chest Chest inspection: normal inspection of the chest and symmetric chest movement Auscultation: Bilateral: Clear to Auscultation Cardio Palpation: normal PMI Rate: regular rate Rhythm: regular rhythm Heart sounds: S1 normal and S2 normal; negative rub, gallop or murmur GI GI: normal to inspection, soft, no hepatosplenomegaly and bowel sounds present; negative tender Neuro General: alert, awake, oriented x3, CN's II-XI intact bilaterally and moves all extremities Extremities Pulses: Normal: Right Posterior Tibial Pulse, Left Posterior Tibial Pulse, Right Radial Pulse, Left Radial Pulse Lower Extremity Edema: None: Bilateral Psych Psychological: normal affect Assessment & Plan Problems 1. Abnormal stress echo R94.39 2. Arteriosclerosis of coronary artery in patient with history of myocardial infarction I25.10; I25.2 Apparently pt had previous AL prior to CABG in 1991 3. S/P CABG x 4 Z95.1 Done @ [facility], we do not have report. 4. History of endovascular stent graft for abdominal aortic aneurysm (AAA) Z95.[address] Yan Young, 11/07/2016 @ [facility] 5. Essential hypertension I10 6. Hyperlipidemia E78.5 Plan - DELON Story With his abnormal stress test he will undergo a diagnostic heart cath today. Based on findings he will follow up accordingly. Procedure Criteria: Yes Elective The surgeon/proceduralist and patient have discussed in detail the risk of exposure to and/or potential harm posed by the COVID-19 virus with having a surgery/procedure at this time versus the risk of delaying the surgery/procedure. It is not possible to know either the risk of delaying the surgery or procedure or chance of getting an infection with perfect accuracy, but a joint decision was made between the patient and the surgeon/proceduralist to proceed at this time with the scheduled surgery/procedure as indicated on the consent form. Interventional cardiology addendum: Patient was seen and examined on day procedure, and the risk/benefits of the procedure were thoroughly explained the patient including specific attention to lack of onsite surgical backup. Patient is agreed to proceed. Left heart cath with grafts to follow.
--- NOTE | 2020-05-17 11:23 | CL.I_ITS ---
Patient Name: SILVIANO GONZALEZ Study Date: 05/17/2020 Performing: Rogelio Barnett MD Ht: 72.83 inches 185 cm : 1945 Wt: 260.15 lbs 118 kg Age: 74 Gender: male BSA: 2.4 Amended PROCEDURE(S) PERFORMED EQ42-GZS/COR/LV/CABG [id number] W OR WO PTCA, SINGLE CORONARY ARTERY [id number] W OR WO PTCA, EACH ADD'L ARTERY, SAME MAJOR [id number] ROOT ANGIO WITH HEART CATH CLINICAL PROFILE AND CO-MORBIDITIES Indications: Stable Known CAD, LV Dysfunction Heart Failure: NYHA Class: 1, Newly Diagnosed: No, Heart Failure Type: Systolic Stress/Imaging Date: 05/02/2020 Stress Echocardiogram: Positive Intermediate Risk of ischemia Angina Classification Anginal Classification w/in 2 Weeks: Anginal Equivalent Dyspnea CAD Presentations: Other: arango Comorbidities/Risk Factors: Hypertension Dyslipidemia Prior CHF Prior CABG Peripheral Arterial Disease CONCLUSIONS Triple vessel CAD of the LCX, LAD and RCA Widely patent LIU to LAD Widely patent CRYSTAL to RCA with multiple indirect injections; very tortuous right subclavian. Probably occluded SVGs x 2 to unknown arteries(CABG report not available.) Segmented LV systolic dysfunction- Mild Successful PTCA/CLAUDINE proximal OM#1 with a 2.25 x 16 Promus Synergy; 85%-->0%, no dissection. Successful PTCA/CLAUDINE mid LCX with a 2.25 x 16 Promus Synergy, post dilated proximally with a 2.5 x 8 N C Balloon; 75%-->0%, no dissection. RECOMMENDATIONS Referred for immediate PCI Highly recommend quitting all tobacco products Follow up with primary chief building inspector Risk factor modification ASA Indefinitley Plavix for at least 12 months Routine post interventional care Refer for Outpatient Cardiac Rehab Manual sheath removal per protocol Follow up with Dr. Barnett PFTS in 2 weeks Successful Mynx Control closure of RFA. DESCRIPTION OF PROCEDURE The patient arrived to the procedure lab. The risks and benefits of the procedure as well as a full d escription of our services here and lack of surgical backup were fully explained to the patient and/o r their significant other prior to the catheterization. The Timeout was completed, verifying the adwoa ect patient and procedure. The patient's procedural site was prepped and draped in the usual fashion. Local anesthetic was given subcutaneously to right groin region with Lidocaine 2%. Using a modified Seldinger technique, arterial access was obtained via the right femoral artery, a 4Fr 45cm sheath was inserted. Left Coronary Artery selective angiography was performed in multiple views using a 4 Fr. JL5 catheter. Right Coronary Artery selective angiography was then performed in multiple views using a 4 Fr. 3DRC catheter. Left internal mammary artery graft to the LAD selective angiography was perfor med in multiple views using a 4 Fr. 3DRC catheter. Saphenous Vein graft to the unknown artery (occluded graft) selective angiography was performed in single view using a 4 Fr. AR MOD 2 cat heter. Right internal mammary artery graft to the RCA selective angiography was performed in multiple views using a 4 Fr. 3DRC catheter. Right internal mammary artery graft to the RCA selective angiogra phy was performed in multiple views using a 6 Fr. JR 4 catheter. Left Ventriculography was performed in YDER projection using a 4 Fr. Pigtail catheter. LV to AO pullback pressures were then recordedThe i mages were reviewed and options discussed. A decision was then made to proceed with an Intervention, IVUS or other adjunct procedure. EBU 3.75 Guide catheter was inserted and engaged into the LCA. BMW #1 Guide wire was advanced to the Circumflex. BMW #2 Guide wire was advanced to the 1st OM. 2.0x8 Emerge Balloon catheter was advan chriss across lesion in the first obtuse marginal, proximal. PTCA balloon inflated at 8 atms for 11 secs . Angiogram performed post balloon dilatation. 2.25x16 synergy Drug Eluting stent was advanced across the lesion in the first obtuse marginal, proximal. 2.0x8 Emerge Balloon catheter was advanced across lesion in the circumflex, mid. PTCA balloon inflated at 8 atms for 13 secs. 2.25x16 Synergy Drug Elu ting stent was advanced across the lesion in the circumflex, mid. 2.5x8 NC Emerge Balloon catheter wa s inserted post stent. Balloon catheter was advanced across lesion in the circumflex, mid. Angiogram performed post stent deployment. The arterial sheath was pulled and a Mynx closure device was deplo yed for hemostasis CORONARY ANGIOGRAPHY DOMINANCE: Right Dominant LEFT HEART ASSESSMENT Left Ventricular Ejection Fraction: by LV Gram 55 % Depressed Left Ventricular systolic function Inferior Basal Hypokinesis - Mild LEFT MAIN: Angiographically normal LEFT ANTERIOR DESCENDING ARTERY: is occluded CIRCUMFLEX ARTERY: PROX CIRC: Mild luminal irregularities less than 30% MID CIRC: 75 % Stenosis OM 1: Proximal - 85 % Stenosis RIGHT CORONARY ARTERY: is occluded GRAFTS: LIU graft to the Mid LAD is patent CRYSTAL graft to the RCA is patent AORTIC ROOT: No evidence of patent SVG to any vessels. INTERVENTION INFORMATION LESION SITE: 1st OM (Proximal) Lesion Complexity: Non-High/Non-C, lesion at bifurcation: No, lesion length: 16 mm, thrombus present: No, culprit lesion: Yes Pre Stenosis: 85 % Pre intervention ERAN flow: 3 PROCEDURE: Drug Eluting Stent with pre dilatation. Post Stenosis: 0 % Post intervention ERAN flow: 3 Lesion Devices: Wilkinson .014 BMW [place] Straight 190cm Wilkinson .014 BMW [place] Straight 190cm Medtronic 6 Fr EBU3.75 100cm Guide Catheter Edgar Sci EMERGE MR 2.00x08 BALLOON Edgar Sci Synergy MR CLAUDINE 2.25x16 LESION SITE: Circumflex (Mid) Lesion Complexity: Non-High/Non-C, lesion at bifurcation: No, thrombus present: No, lesion length: 16 mm, culprit lesion: No Pre Stenosis: 75 % Pre intervention ERAN flow: 3 PROCEDURE: Drug Eluting Stent with pre and post dilatation Post Stenosis: 0 % Post intervention ERAN flow: 3 Lesion Devices: Wilkinson .014 BMW [place] Straight 190cm Wilkinson .014 BMW [place] Straight 190cm Medtronic 6 Fr EBU3.75 100cm Guide Catheter Edgar Sci EMERGE MR 2.00x08 BALLOON Edgar Sci Synergy MR CLAUDINE 2.25x16 COMPLICATIONS No Complications PROCEDURE MEDICATIONS Oxygen: 2 L/min via nasal cannula Heparin 6000 unit(s) IV 05/17/2020 10:35:31 Nitro 200 mcg IC 05/17/2020 10:45:04 Nitro 200 mcg IC 05/17/2020 10:45:04 IV Bolus: .9 NaCl 550 ml total 05/17/2020 11:08:17 SUMMARY OF HEMODYNAMIC DATA Time AIR REST ECG 09:23:59 AO 144/78 (107) SA 09:30:56 AO 134/72 (101) 09:40:38 LV 139/-16, 17 10:30:47 LV 134/-17, 22 10:30:54 LVp 135/-16, 24 10:30:59 AOp 132/63 (93) 10:31:04 AO 145/49 (94) 10:31:13 Signed By Rogelio Barnett MD On 06/21/2020 2:45:16 PM Signed By Rogelio Barnett MD On 05/17/2020 11:22:52 AM Rogelio Barnett MD
--- NOTE | 2020-05-17 11:44 | EKG12_ITS ---
Test Reason : AM EKG Blood Pressure : / mmHG Vent. Rate : 056 BPM Atrial Rate : 056 BPM P-R Int : 180 ms QRS Dur : 108 ms QT Int : 448 ms P-R-T Axes : 075 040 025 degrees QTc Int : 432 ms Sinus bradycardia Inferior infarct , age undetermined, cannot be excluded Abnormal ECG Confirmed by MAXIMUS ROSADO, NOEL ([id number]), rewrite editor YEIMI GIBSON ([id number]) on 05/23/2020 11:19:29 AM Referred By: Rogelio Barnett Confirmed By:NOEL STROUD MD
[2020-05-17] MEDS: 0.9% Normal Saline 1,000 ML 150 ML IV (12:47)
[2020-05-17 13:26] LABS: ACT Activated Clotting Time 186 sec (74-137)
--- NOTE | 2020-05-17 14:08 | CRPHASE1 ---
Patient Communication PHII Cardiac Rehab Discussed with Patient:: Yes Guide to Cardiac Rehab Given to Patient:: Yes Cardiac Rehab Facility Choice List Given to Patient:: Yes Choice Program [facility] CR PHII:: Communication Given to CR, Refer to [facility] Refer Phase II Cardiac Rehab:: Yes - to take place after discharge Cardiac Rehabilitation Info Cardiac Rehabilitation Program Information: Cardiac Rehabilitation is important for patients like you who are recovering from a heart problem. Cardiac rehabilitation programs are recognized as integral to the continued care of the patient with coronary heart disease. The cardiac rehabilitation program is designed to optimize a patient's physical, psychological, and social functioning. Health coronary care unit nurse work in cardiac rehabilitation programs and assist you with getting the treatments you need to get stronger and healthier - like exercise, healthy eating habits, and medications. Cardiac rehabilitation has been show to help people with heart problems live longer and have better life enjoyment than people who do not go to cardiac rehabilitation. Please contact the Cardiac Rehabilitation Program at [facility] at in two weeks if you have not heard from them.
--- NOTE | 2020-05-17 14:10 | CRPH1.INSTRU ---
General Education CAD and cardiac anatomy and function:: Patient communicates acknowledgment Explanation of diagnoses and procedures:: Patient communicates acknowledgment Sign/Symptoms of CT:: Patient communicates acknowledgment Antiplatelet therapy: Patient communicates acknowledgment Proper use of NTG-SL: Patient communicates acknowledgment Emergency procedures and activation of EMS: Patient communicates acknowledgment Compliance of all prescribed medications: Patient communicates acknowledgment Smoking Recommendations Include:: Previous smoker; encourage continued cessation Nicotine/Smoking Response Code:: Patient communicates acknowledgment Dyslipidemia Patient Dyslipidemia Risk Factors Are:: Total Cholesterol - 136, Triglycerides - 81, HDL - 51, LDL - 69 Recommendations Include:: Therapeutic Lifestyle Change dietary guidelines Dyslipidemia Response Code:: Patient communicates acknowledgment Overweight/Obesity Patient Overweight/Obesity Risk Factors Are:: Obesity - > or = 30 Recommendations Include:: Weight loss of 5-10%, Reduced calorie diet, Exercise 5-7 times/week Overweight/Obesity:: Patient communicates acknowledgment
[2020-05-17] MEDS: Tamsulosin HCl 0.4 MG Capsule PO ×2 (17:22→17:42)
[2020-05-17] MEDS: Atorvastatin Calcium 40 MG Tablet PO (22:18)
[2020-05-18] VITALS (12 sets, daily range): BP systolic 97–115; BP diastolic 49–74; PULSE 49–70; RESP 11–19; TEMP 36.4–36.7; O2SAT 94–98
[2020-05-18 04:42] LABS: Hematocrit 38.6 % (40-54); Mean Corp Hgb Conc 33.7 g/dL (32-36); Mean Corpuscular Hgb 31.9 pg (27.0-32.0); Mean Corpuscular Volume 94.8 fL (80-94); Mean Platelet Vol. 9.8 fl (6.2-12.0); POSITIVE COUNT YES; Platelet Count 82 K/mm3 (150-450); RBC Distribution Width CV 12.9 % (11.6-14.6); RBC Distribution Width SD 44.2 fl (35.1-43.9); Red Blood Count 4.07 M/mm3 (4.6-6.2); White Blood Count 10.2 K/mm3 (4.4-11.0)
[2020-05-18 04:53] LABS: ALB/GLOB Ratio 1.2 RATIO (0.9-2.4); AST(SGOT) 22 U/L (15-37); Alanine Aminotransfer ALT/SGPT 34 U/L (16-61); Albumin, Serum 3.4 g/dL (3.2-5.0); Alkaline Phosphatase 77 U/L (45-117); Anion Gap 6 (5-15); BUN 19 mg/dL (7-18); BUN/Creat Ratio 18.8 RATIO (10-20); Calcium,Total 8.3 mg/dL (8.5-10.1); Chloride 107 mmol/L (98-107); Creatinine, Serum 1.01 mg/dL (0.70-1.30); EST Glomerular Filtration Rate 76 mL/min (>60); Est Glom Filt Rate - Afr Amer 92 mL/min (>60); Estimated Creatinine Clearance 68.29 ml/min; Globulin 2.8 g/dL (2.2-4.2); Glucose 110 mg/dL (74-106); Potassium 3.8 mmol/L (3.5-5.1); Protein, Total 6.2 g/dL (6.4-8.2); Sodium Level 140 mmol/L (136-145)
[2020-05-18 05:29] LABS: POSITIVE DIFFERENTIAL NO; Scan Indicated on CBC? Y/N YES- FLAGS NOTED
--- NOTE | 2020-05-18 08:54 | PCM.PN.CARD ---
Subjectve: Patient seen and examined, doing quite well. Telemetry negative. Right groin is clean/dry/intact, no thrills, bruits or hematoma. Hemoglobin and creatinine are within nominal limits. EKG shows normal sinus rhythm, old inferior wall myocardial infarction, no acute changes. Objective: Vital Signs Temp Pulse Resp BP Pulse Ox 97.6 F L 67 18 115/74 98 05/18/20 04:00 05/18/20 08:00 05/18/20 08:00 05/18/20 08:00 05/18/20 08:00 Oxygen Delivery Method Room Air Weight: 260 lb 9.382 oz Body Mass Index (BMI) 34.4 Intake and Output for Last 24 Hours 05/16/20 05/17/20 05/18/20 23:59 23:59 23:59 Intake Total 1240 / 1480 360 / 360 Output Total 375 / 375 250 / 250 Balance 865 / 1105 110 / 110 General: Awake, Alert, Oriented x 3 HEENT: PERRL, EOMI, Sclera Non Icteric Neck: Supple, Good ROM, No Lymph Node Enlargement Lungs: Clear to auscultation Cardiovascular: Regular Rhythm, Normal S1, Normal S2, No Murmurs, No Rubs, No Gallops Vascular: No Carotid Bruits, Normal Femoral Pulses, Normal Radial Pulses, Normal Dorsalis Pedal Pulse, Normal Posterior Tibial Pulses Abdomen: Bowel Sounds Present, Soft, Non Tender, No HSM, No Organomegaly Extremities: No Cyanosis, No Clubbing, No edema Neurological: No Focal Motor or Sensory Deficit 05/18/20 04:10: WBC 10.2, RBC 4.07 L, Hgb 13.0, Hct 38.6 L, MCV 94.8 H, MCH 31.9, MCHC 33.7, Plt Count 82 L, MPV 9.8 05/18/20 04:10: Sodium 140, Potassium 3.8, Chloride 107, Carbon Dioxide 27.0, Anion Gap 6, BUN 19 H, Creatinine 1.01, Est GFR (MDRD) Af Amer 92, Est GFR (MDRD) Non-Af 76, BUN/Creatinine Ratio 18.8, Glucose 110 H, Calcium 8.3 L, Total Bilirubin 0.70 Rhythm: EKG: ECHO: Stress Test: Cardiac Cath: PCI: CT Surgery: Holter monitor: EPS: PPM: CXR: Chest CT Scan: Medical Necessity - Tobacco Use Smoking Status: Former smoker Assessment/Plan 1. Coronary artery disease: Patient status post angioplasty and stenting x2 to his left circumflex and obtuse marginal. Patient has known severe critical coronary artery disease including an occluded LAD and occluded right coronary artery. His vein grafts x2 to unknown destinations are occluded, and his LIU to his LAD is patent as well as his CRYSTAL to the right coronary artery. At this point the patient will continue baby aspirin, Plavix, and be enrolled in cardiac rehab in 2 weeks time. He will continue his antihypertensive medications including Coreg and lisinopril. 2. Hyperlipidemia: Continue Lipitor therapy. Repeat lipid profile in 6 weeks time. 3. Patient may be discharged home to follow-up with Dr. Barnett going forward. Inpatient E&M: 31342 Subs Hosp L2
--- NOTE | 2020-05-18 09:02 | PCM.DC.CCA ---
Discharge Diet: Low fat/ Low Cholesterol Discharge Activity: Return to Normal Activity May shower in (days): 1 Lifting Restrictions: 10 pounds and also avoid any pushing or pulling for 3 days after your test. Call your doctor if your incision/area has: Continuous Slow Oozing, Sudden Increased Bleeding, Increased Pain/ Swelling, Increased Redness, Foul Smelling Discharge, Swelling at the incision site Call your doctor if you observe: Fever of 101 or Higher, Chest pain Remove Dressing in (days):: 1 Additional Dressing/Incision Instructions:: Keep the dressing (bandage) on until the next morning. You may then shower, but do not take a tub bath for 5 days after your test. It is normal to have some tenderness and discomfort at the puncture site. Sometimes bruising also occurs. However, if pain, numbness, or coldness occurs below the puncture site (in your leg, toes, arms or fingers) call your doctor at once. You may have a small, marble sized knot at the puncture site. This is normal. Do not rub it. It will go away in 4-6 weeks. Bleeding can occur from the area where the puncture was done. Blood may spurt or drip from the site. If blood spurts, apply pressure right away to stop bleeding and call 911. Although rare, bleeding into the tissue (hematoma) can also occur. If this happens, a large, firm area goose egg under the skin will appear. If any of these occur, lie down as flat as you can and have someone apply firm pressure to the cath site with a gauze pad or a clean washcloth for 10-15 minutes. Call 911 or go to the Emergency Department. Additional Instructions: You need to stay on your Plavix for at least one year prior to stopping for any reason. When I see you in the office we will further discuss cardiac rehab. Coreg was added to your medications. A prescription was sent to [facility] this is a twice a day medication Allergies/Adverse Reactions: Allergies Penicillins Allergy (Verified 03/07/18 08:44) Hives doxycycline Adverse Reaction (Intermediate, Verified 04/03/20 15:39) GI intolerance Medications to take at Discharge lisinopril 20 mg-hydrochlorothiazide 12.5 mg tablet 1 tab PO DAILY 04/03/20 tamsulosin 0.4 mg capsule 0.4 mg PO DAILY 04/03/20 aspirin 81 mg tablet,delayed release 81 mg PO DAILY 04/04/20 atorvastatin 40 mg tablet 40 mg PO QHS 04/04/20 clopidogrel 75 mg tablet 75 mg PO DAILY #30 tab 04/04/20 Carvedilol [Coreg (Beta Nicole)] 3.125 mg PO BID #60 tab 05/18/20 The following prescriptions were given: Carvedilol [Coreg (Beta Nicole)] 3.125 mg PO BID #60 tab Transmission Status: Pending to [id number] Primary Care Physician: Silvestre Young III, MD [Primary Care Provider] - Test Results: Test results from this visit will be discussed in further detail at your follow-up appointment, if applicable. Please Follow Up With: Tawny Avalos PA When: at scheduled in office (06/06) Cardiac Rehabilitation Info Cardiac Rehabilitation Program Information: Cardiac Rehabilitation is important for patients like you who are recovering from a heart problem. Cardiac rehabilitation programs are recognized as integral to the continued care of the patient with coronary heart disease. The cardiac rehabilitation program is designed to optimize a patient's physical, psychological, and social functioning. Health child care center administrator work in cardiac rehabilitation programs and assist you with getting the treatments you need to get stronger and healthier - like exercise, healthy eating habits, and medications. Cardiac rehabilitation has been show to help people with heart problems live longer and have better life enjoyment than people who do not go to cardiac rehabilitation. Please contact the Cardiac Rehabilitation Program at [facility] at in two weeks if you have not heard from them.
[2020-05-18] MEDS: Carvedilol 3.125 MG TABLET PO (09:26)
--- NOTE | 2020-05-18 10:00 | EKG12_ITS ---
Test Reason : PCI Blood Pressure : / mmHG Vent. Rate : 059 BPM Atrial Rate : 059 BPM P-R Int : 182 ms QRS Dur : 104 ms QT Int : 436 ms P-R-T Axes : 075 058 048 degrees QTc Int : 431 ms Sinus bradycardia Otherwise normal ECG Confirmed by MAXIMUS ROSADO, NOEL ([id number]), assistant editor YEIMI GIBSON ([id number]) on 05/23/2020 11:19:52 AM Referred By: Rogelio Barnett Confirmed By:NOEL STROUD MD
== END 2020-05-18 10:09 | disposition home or self-care (01) ==
LOC: CLSP 07:57 → ICU 11:33
PROVIDERS: PCP Family Medicine; Referring Provider Internal Medicine Cardiovascular Disease; Visit Provider Internal Medicine Cardiovascular Disease
DX: I25.10 Atherosclerotic heart disease of native coronary artery without angina pectoris (principal); R94.39 Abnormal result of other cardiovascular function study; I10 Essential (primary) hypertension; E78.00 Pure hypercholesterolemia, unspecified; I73.9 Peripheral vascular disease, unspecified; I25.2 Old myocardial infarction; C91.10 Chronic lymphocytic leukemia of B-cell type not having achieved remission; R00.0 Tachycardia, unspecified; E78.5 Hyperlipidemia, unspecified; I11.0 Hypertensive heart disease with heart failure; I50.20 Unspecified systolic (congestive) heart failure; R06.00 Dyspnea, unspecified; I25.82 Chronic total occlusion of coronary artery; I49.3 Ventricular premature depolarization; Z87.891 Personal history of nicotine dependence; Z95.1 Presence of aortocoronary bypass graft; Z79.02 Long term (current) use of antithrombotics/antiplatelets; Z79.899 Other long term (current) drug therapy; Z79.82 Long term (current) use of aspirin; I77.1 Stricture of artery; Q24.8 Other specified congenital malformations of heart; R93.1 Abnormal findings on diagnostic imaging of heart and coronary circulation
CPT/HCPCS: 36415; 71046; 80047; 80053; 85027; 85347; 85610; 85730; 92928; 92929; 93005; 93459; 93567; C1760; J7030; J7040; C1725; C1769; C1874; C1887; C1894; C9600; C9601; Q9967

== ENCOUNTER → 2020-06-06 07:48 | Outpatient (CLI) | payer MEDICARE, SELFPAY ==
[2020-05-17 12:24] VITALS: BMI 34.4
--- NOTE | 2020-06-06 07:57 | CR.HP_ITS ---
CR - History & Physical - General Arrival date:: 06/06/20 Arrival time:: 08:01 Date of Referral:: 05/18/20 Date of CR Evaluation:: 06/06/20 Referring Physician: DR. LINCOLN BRINK Primary Diagnosis: S/P PCI W/CORONARY STENTING - History of Present Cardiac Event Onset Date: Enter Onset Date of cardiac illnesses in Comment field below Acute Myocardial Infarction within 12 months:: No Coronary Artery Bypass Graft:: Yes - 1991 PTCA or coronary stenting:: Yes - 05/17/2020 TWO STENTS PLACED. Type of Symptoms:: ABNORMAL STRESS ECHO Interventions with present event:: AFTER FINDINGS OF STRESS ECHO TAKEN TO AMBULANCE DISPATCHER FOR FURTHER EXAMINATION Were there any complications?: NONE - Medications Home Medications: Ambulatory Orders Medication Instructions Recorded lisinopril 20 1 tab PO DAILY 04/03/20 mg-hydrochlorothiazide 12.5 mg tablet tamsulosin 0.4 mg capsule 0.4 mg PO DAILY 04/03/20 aspirin 81 mg tablet,delayed 81 mg PO DAILY 04/04/20 release atorvastatin 40 mg tablet 40 mg PO QHS 04/04/20 clopidogrel 75 mg tablet 75 mg PO DAILY #30 tab 04/04/20 Carvedilol [Coreg (Beta Nicole)] 3.125 mg PO BID #60 tab 05/18/20 - Allergies Allergies/Adverse Reactions: Allergies Penicillins Allergy (Verified 03/07/18 08:44) Hives doxycycline Adverse Reaction (Intermediate, Verified 04/03/20 15:39) GI intolerance - Sleep Disorder Evaluation Hx of Sleep Apnea: No Do you snore loudly (louder than talking or can be heard through closed doors)?: No Do you often feel tired/ fatigued/ sleepy during daytime?: Yes Has anyone observed you stop breathing during sleep?: No History of Hypertension (for STOP score): Yes STOP Results: Positive Advanced Directives - Advanced Directives Power of Court Advocate: Yes Living Will: Yes Advance Directives Information Provided: No Advance Directives on File: No DNR Order?:: No - MOLST See MOLST form: No Past Medical History - Past Medical Illness Medical History: Past Medical History (Last Reviewed 05/16/20 @ 13:28 by DELON Story) Abnormal stress echo (Acute) R94.39 Chronic lymphocytic leukemia (Chronic) C91.10 Sees oncologist when in [place] Cervical stenosis of spinal canal (Chronic) Onset Date: 12/10/19 M48.02 CVA was ruled out with MRI; pt had critical cervical spinal stenosis with right sided weakness. Arteriosclerosis of coronary artery in patient with history of myocardial infarction (Chronic) I25.10, I25.2 Apparently pt had previous WI prior to CABG in 1991 History of WI (myocardial infarction) (Chronic) Onset Date: 12/20/19 I25.2 S/P Cervical Laminectomy 12/20/2019. Pt had previous WI's in 1990 (prior to POBA of RCA) and 1991 (prior to CABG X4). Carotid artery stenosis without cerebral infarction (Chronic) I65.29 Essential hypertension (Chronic) I10 Hyperlipidemia (Chronic) E78.5 - Past Surgical History Surgical History: Past Surgical History (Last Updated 05/18/20 @ 16:24 by Siobhan Bryant) Stented coronary artery (Chronic) Onset Date: 05/17/20 Z95.5 Triple vessel CAD of the LCX, LAD and RCA. Widely patent LIU to LAD. Widely patent CRYSTAL to RCA with multiple indirect injections; very tortuous right subclavian. Probably occluded SVGs x 2 to unknown arteries(CABG report not available). Segmented LV systolic dysfunction- Mild Successful PTCA/CLAUDINE proximal OM#1 with a 2.25 x 16 Promus Synergy:Successful PTCA/CLAUDINE mid LCX with a 2.25 x 16 Promus Synergy 05/17/2020 per ESA @ [facility]. S/P CABG x 4 (Chronic) Onset Date: 1991 Z95.1 Done @ [facility], we do not have report. History of endovascular stent graft for abdominal aortic aneurysm (AAA) (Chronic) Onset Date: 11/07/[address] Yan Young, 11/07/2016 @ [facility] History of cervical spinal surgery (Chronic) Onset Date: 12/20/19 Z98.890 C3-5 cervical laminectomy in [place] 12/20/2019 Social History - Smoking History Smoking Status: Former smoker - Alcohol Use Alcohol Usage: No - VERY RARELY. A BEER OR TWO ONCE A MONTH IF THAT. - Substance Abuse Hx Substance Use: No - Occupation Occupation (List type of work in comments):: Retired - Hobbies, Recreation, Social Activities Hobbies: Sports - USED TO FISH AND GO CAMPING - 6 MONTHS IN [place], Reading, Exercise, Other - MUSEUMS, READING, WALKING, RIDE BIKE/HOME AIRDYNE, TRAVEL AND GARDEN. Recreational Activities: I am able to engage in most, but not all activities - PHYSICAL LIMITATIONS Social Environment - Status Marital Status: - Current Living Arrangements Living Environment:: Alone - Children Do any of your children live nearby?: Yes - KAREL - DAUGHTER - Safety Do you feel safe in your surroundings?: Yes - Assistance Do you need any assistance at home?: NONE Review of Systems - Review of Systems Hints: Right click = Denies (Slash). Left click = Reports ([place]) Review of Present Symptoms: Reports: Shortness of Breath with Exertion - WITH A LITTLE ACTIVITY, CLIMBING STAIRS AND WALKING. HAS IMPROVED SINCE HAVING THE TWO STENTS PLACED., Dizziness/Lightheadedness - ONLY IF I GET OUT OF BED TO FAST IN THE MORNINGS, BUT DOESN'T LAST LONG., Fatigue - ALL THE TIME; LEUKEMIA CHECKED EVERY 6-MONTHS, Appetite - Normal, Appetite - Special Diet - ON A LOW-FAT, LOW- SODIUM DIET, INTERESTED IN LEARNING HOW TO CONTROL MY EATING., Sleep - Normal. Denies: Shortness of Breath at Rest, Angina, Heart Arrhythmia/Irregularities - Pain Is Patient Pain Free?: Yes Pain Location: none, neck - HAD CERVICAL SPINE SURGERY NO STRENGTH IN RIGHT LEG AT ALL., back - SEVERE ARTHRITIS IN LUMBAR REGION AND BALANCE ISSUES USE CANE CRUTCH. NO FALL HISTORY RECENT. Pain Level: 0/10 Risk Factor Assessment - Chief Complaint Chief Complaint: PATIENIT IS A MALE [address] 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 - Vital Signs Temperature: 97.4 F Respiratory Rate: 18 Pulse Ox: 98 Blood Pressure: 114/72 Nailbeds:: PINK - Pulse Pulse Rate: 66 Pulse Rhythm: Regular - Hypertension Blood Pressure Sitting - Left Arm: 114/72 - Blood Cholesterol/Lipids Total Cholesterol (mg/dL) Goal = less than 200 mg/dL: 136 HDL Cholesterol (mg/dL) Goal = less than 40 mg/dL: 51 LDL Cholesterol (mg/dL) Goal = less than 70 mg/dL: 69 Triglycerides (mg/dL) Goal = less than 150 mg/dL: 81 - Diabetes Nutrition Referral for Diabetes: No - Obesity Height: 6 ft 1 in Weight:: 260 lb Weight in Pounds: 260.0 lbs Weight Source: Standing Scale Body Mass Index (BMI): 34.2 Nutritional Referral for Obesity: Yes - WHY WEIGHT PROGRAM - Physical Inactivity Physical Inactivity: Recreational activity - Risk Stratification Risk Guidelines: Lowest Risk: Risk Factor for Smoking, Risk Factor for Dyslipidemia, Risk Factor for Diabetes, Risk Factor for Hypertension - CON TROLLED 114/72, Risk Factor for Sedentary Lifestyle - LOW-MODERATE, Risk Factor for Depression, Moderate Risk: Risk Factor for Sedentary Lifestyle, Highest Risk: Risk Factor for Obesity - BMI 34.2 - For Smoking Smoking Risk Guidelines: Smoking Low Risk: None or quit greater than 6 months ago. Smoking Moderate Risk: Smoker or quit 6 months or less ago. Smoking High Risk: Smoker - For Dyslipidemia Dyslipidemia Risk Guidelines: Low Risk: Moderate Risk: High Risk: 15-25% fat 25.1-29% fat >/= 30% fat. <7% sat fat 7-9% sat fat >9% sat fat. <150 mg chol 150-299 mg chol >/= 300 mg chol. LDL <100 LDL 100-129 LDL >/= 130. Chol/HDL ratio <5.0 Chol/HDL ratio 5.0-6.0 Chol/HDL ratio >6.0. Triglycerides <100 Triglycerides 100-149 Triglycerides >/= 150 - For Diabetes Mellitus Diabetes Risk Guidelines: Diabetes Low Risk: HgA1c <6.5% and/or FBG <120. Diabetes Moderate Risk: HgA1c 6.6-7.9% and/or FBG 120-180. Diabetes High Risk: HgA1c >/= 8% and/or FBG >180 - For Obesity/Overweight Obesity/Overweight Risk Guidelines: Obesity Low Risk: BMI <25.0. Obesity Moderate Risk: BMI 25-29.9. Obesity High Risk: BMI >/= 30.0 - For Hypertension Hypertension Risk Guidelines: Hypertension Low Risk: Systolic <120 and Diastolic <80. Hypertension Moderate Risk: Systolic 120-139 and Diasto lic 80-89. Hypertension High Risk: Systolic >/= 140 and Diastolic >/= 90 - For Sedentary Lifestyle Sedentary Lifestyle Risk Guidelines: Sedentary Lifestyle Low Risk: >/= 1,500 kcal/week. Sedentary Lifestyle Moderate Risk: 700-1,499 kcal/week. Sedentary Lifestyle High Risk: < 700 kcal/week - For Depression Depression Risk Guidelines: Depression Low Risk: Not clinically depressed. Depression Moderate Risk: Mildly depressed. Depression High Risk: Clinically depressed Motivation - Motivation to Participate On a scale of 1 to 10, how prepared are you to commit to attending program?: 9 What do you see as barriers to successfully being able to complete the program?: WEAKNESS IN RIGHT LEG-HAS TO USE ARM TO LIFT LEG IN SHOWER What do you see as the benefits of succesfully completing the program? In other words, what do you hope to get out of participating in the program?: GETTING BACK TO WALKING FAIRLY NORMAL AGAIN/ACTIVE Are there issues you are dealing with that will interfere with completing the program?: VERY WEAK IN RIGHT LEG, DIFFICULTY WALKING LONG DISTANCES/ LOST MUSCLE TONE Do you have a spouse or signficant other, family or friends who will help support you to complete the program?: YES
--- NOTE | 2020-06-06 07:58 | CR.ITP_ITS ---
Diagnosis - General Information Admitting Diagnosis: S/P PCI W/CORONARY STENTING Personal Learning Style:: Audio/Visual, Demonstration, Group, Individual Preference, Written Barriers to Learning: Vision Impairment Stage of change r/t lifestyle modifications:: Action Gave educational material for:: Treating Heart Disease, Emotions & Heart Disease, Stress Management & Relaxation, Sleep Disorders & Heart Disease, How The Heart Works, What it means to have Heart Disease, How Coronary Artery Disease is Diagnosed, Heart Procedures, What Heart Medications Do, Risk Factors & Modifications, Living an Active Life, Nutrition - Education/Goals Individual Counseling: Initial Assessment: Abnormal Cholesterol Levels, High Blood Pressure, Overweight/Obesity Cardiac Rehabilitation Goals: 1. Maintain the individual as the primary focus of care. 2. To improve the patient's quality of life. 3. Identification of cardiac risk factors and provide cardiac risk factor management. 4. Enhance the psychosocial status of the patient. 5. Reconditioning enough to allow the patient to resume customary activities. 6. Control symptoms of cardiac disease Personal Goals: Initial Assessment: Improve management of stress and emotions, Improve energy level, Participate in home exercise program, Get back to work, or to resume activities faster, Improve knowledge of cardiac disease, Improve muscle strength and endurance, Improve diet and eating habits (eat healthier), Control risk factors (learn risk factor modification), Other goal: - RESUME SWIMMING Scale for measuring improvement of personal goals: Enter appropriate number in Comments. 2 = Unchanged. 3 = Slightly Better. 4 = Moderate Improvement. 5 = Met my Goal - Diagnosis & Disease Process Outcomes/Goals: Pt IDs own risk factors & lifestyle modifications by Session 10, Verbalizes symptoms of angina & response by session 3., Pt independently manages Plan/Interventions: Assist Pt to ID & engage in lifestyle modification to reduce CVD risk, Instruct on individual risk factors, Review symptoms of angina & emergency actions, Review secondary diagnosis & identify educational needs. - Safety Referral to Physical Therapy: No Referral to [facility] Case Management: No Fall Risk Assessed:: Yes Assistive Devices:: Cane Exercise - Initial Assessment - Visit Date of Eval: 06/06/20 Session #:: 0 - INITIAL EVALUATION PRE-CARDIAC REHAB Mets: Pre-: >5 METS for 30 minutes by discharge - Physician Prescribed Exercise Modalities: Treadmill, Airdyne, NuStep, SciFit Frequency: 3x/week for 12 weeks [36 sessions] Intensity: 60-80% of age predicted maximum heart rate reserve Current METSs:: 2.2 Target Heart Rate:: 115-122 Resting Blood Pressure: 114/72 EKG Type: SINUS BRADYCARDIA OTHERWISE NORMAL - Outcomes & Goals Goals:: Verbalizes understanding of THR, RPE & goal METS by session 6, Documents in home exercise log/reports 30 min aerobic 5 day/wk by DC, Demonstrates accurate pulse taking by DC - Intervention & Plan Exercise Program Goals: Instruct on personal THR & RPE, Instruct on MET level & personal MET goal, Show patient to take own pulse /validate performance until accurate, Instruct on home exercise - Physical Activity Home Exercise Physical Activity - Home Exercise: Safe Exercise, Warm-up, Self-monitoring, Cool-Down, Home Exercise > 30 min Daily, Sitting Time <3 hours/daily - Outcomes & Goals Outcomes/Goals: Demonstrates correct Warm-up/exercise Cool-Down (S3) if = 2.5 METs, Verbalizes symptoms of exercise intolerance by Session 3 (S3), Demonstrate safe equipment use (S3) & follows exercise prescrition (6) - Intervention & Plan Plan/Intervention: Instruct warm-up & cool-down if exercising at > 2 METs, Instruct on symptoms of exercise intolerance & actions to take, Instruct & monitor on saf, Assess intial functional capacity & safety risk Nutrition - Initial Assessment - Program Goals Nutrition Program Goals: LDL <100 optimal. 100 - 129 Near optimal. 130 - 159 Borderline High. 160 - 189 High. Total Cholesterol <200 desirable. 200 - 239 Borderline High. >/= 240 High. HDL < 40 Low >/=60 High. Triglycerides <150 desirable. <199 optimal. VlDL 5 - 40. HgbA1C <7%. BMI <25 Patient has diagnosis of Hyperlipidemia (ICD E78)?: Yes - Visit Date of Assessment:: 06/06/20 Session #:: 0 - INITIAL EVALUATION PRE-CARDIAC REHAB - Cholesterol/Lipids Triglycerides (mg/dL): 81 Total Cholesterol (mg/dL): 136 LDL Cholesterol (mg/dL): 69 HDL Cholesterol (mg/dL): 51 Determine presence & major risk factors that modify LDL goal: Hypertension or hypertensive medication, Family history of premature CHD in Male < 55 years: female <65 yearsFa, Age men > 45 years; women >/= 55 years Outcomes/Goals: Pt IDs own risk factors & lifestyle modifications by Session 10, Verbalizes symptoms of angina & response by session 3., Pt independently manages Intervention/Plan: Instruct on personal lipid levels & lipid goals/NCEP guidelines, Instruct on cholesterol - Diabetes (Other Core Measures) Diabetes Type: Not Applicable - Weight Mgt (Other Care) Not Applicable: No Height: 6 ft 1 in Weight:: 260 lb BMI: 34.2 Diagnosis Overweight/Obesity BMI> 30% ICD-10 E66: Yes Diagnosis High BMI/Morbid Obesity BMI> 35% ICD-10 Z68: No Outcomes/Goals: Pt sets, maintains & shows weight loss goal & trend during rehab Intervention/Plan: Instruct on ideal BMI & set weight loss goal w/patient, Assist pt to ID & incorporate diet changes for weight loss by S9, Refer to Structured Weight Loss program as appropriate, Encourage goal of using 250- 300dcal per session for weight loss - Healthy Eating Habits Will attend diet classes:: Yes Outcomes/Goals:: Consume diet rich in vegs,fruits,whole grain/high fiber,fish,lean meat, Limit sat/trans fats,cholesterol & added salts & sugars Intervention/Plan:: Assess current eating habits - Education Gave educational materials for:: Healthy eating Medical - Initial Assessment - Visit Date of Eval: 06/06/20 Session #:: 0 - INITIAL EVALUATION PRE-CARDIAC REHAB - Medication Compliance Preventative Medication(s):: Aspirin, Clopidogrel/P2Y12 inhibit, Statin/lipid, Beta john H/O mental health issues: depression, anxiety, or addiction?: No Doesn?t believe in the benefits of treatment?: No Believes medications are unnecessary or harmful?: No Has a concern about medication side effects?: No Expresses concern over the cost of medications?: No Outcomes/Goals: Verbalizes medications,desired effect & common side effects @ DC, Pt self-reports following medication regimen, Keeps card in wallet w/medications listed by DC Interventions/plans: Instruct on medication effects & side effects, Review medication list w/patient every two weeks, Instruct importance of taking meds as ordered & assist problem solving - Tobacco Use Tobacco Use: Non-smoker - Hypertension Hypertension Diagnosis:: Hypertension ICD-10 I10 Resting Blood Pressure:: 114/72 [place] [employer] Hypertension Guidelines: [place] [employer] Hypertension Guidelines. Normal BP Less than 120/80. Elevated BP 120/80. Hypertension Stage 1: BP 130-139/80-89. Hypertesnion Stage 2: BP 140 or higher/90 or higher. Hypertension Crisis: BP higher than 180/120 Outcomes/Goals: Able to verbalize/achieve optimal blood pressure <130/80, Incorporates diet changes & exercise for blood pressure control by DC Interventions/plan: Instruct on optimal blood pressure, hypertension & medications, Instruct on effects of sodium, alcohol, stress, exercise &hyperten michele - Tobacco Cessation Referral Smoking Cessation Referral:: No Individual Education/Counseling:: No Education Schedule Given:: Yes Psychosocial - Initial Assess - VIsit Date of Eval: 06/06/20 Session #:: 0 - INITIAL EVALUATION PRE-CARDIAC REHAB Not Applicable: No History of previous Mental disease:: No - Target Goals Target Goals: Assess presence or absence of depression. Using a valid screening tool, maximizes coping skills. Positive support system - Psychosocial Test Tool Used:: Nirav Denis QOL Cardiac, PHQ-9 Questionnaire phq-9 Severity: Severity. 1-4 Minimal Depression. 5-9 Mild Depression. 10-14 Moderate Depression. 15-19 Moderately Sever Depression. 20-27 Severe Depression. Rule: - Referral to Behavioral Health PS - Interventions: Yes Attend Stress Management Classes, No Referral to Behavioral Health if PHQ-9 score >9:, No Referral to [facility], No Referral to Physician if PHQ-9 if score is 5-9: - Outcomes/Goals: See list Psychosocial Outcomes/Goals:: ID's personal stressors & 2 strategies to manage stress by discharge - Intervention/Plan: See List Interventions/Plan:: Assess stressors,coping strategies & signs of derpression on admission, Instruct/assist pt to develop coping & personal stress Mgt strategies, Instruct patient to recognize signs & symptoms of depression, Instruct patient to recog Patient Health Questionnaire Initial Assessment 1. Little interest or pleasure in doing things: Several days 2. Feeling down, depressed, or hopeless: Not at all 3. Trouble falling or staying asleep, or sleeping too much: More than half the days 4. Feeling tired or having little energy: More than half the days 5. Poor appetite or overeating: More than half the days 6. Feeling bad about yourself -- or that you are a failure or have let yourself or your family down: Not at all 7. Trouble concentrating on things, such as reading the newspaper or watching television: Several days 8. Moving or speaking so slowly that other people could have noticed. Or the opposite - being so fidgety or restless that you have been moving around a lot more than usual: Not at all 9. Thoughts that you would be better off , or of hurting yourself in some way: Not at all How difficult have these problems made it for you to do your work, take care of things at home, or get along with other people?: Very difficult Total Score: 8 LAUREL-Q SV Test - Statements CAD is a disease of the arteries in the heart: True Examples of risk factors for heart disease: True Angina is chest pain or discomfort: True The benefits of resistance training include: True Eating more meat and dairy products: False Anti-platelet medications such as aspirin are important: True The only effective way to manage stress: False An exercise warm-up slowly increases heart rate: True Prepared, processed foods usually have high sodium: True Depression is common after a heart attack: True The statin medications lower cholesterol: True To control blood pressure, lower the amount of sodium: False If someone gets chest discomfort during walking: False Transfats are partially hydrogenated vegetable oils: True Sleep apnea that is not treated increases the risk: I Don't Know To control cholesterol, one should become a vegetarian: False Someone knows if he/she is exercising at the right level: True Diabetes cannot be prevented with exercise & health eating: True Stress is a large risk for heart attack: True A diet that can help lower blood pressure is rich in: True - Total Score Total Correct Responses: 16 Self-Efficacy Initial Assessment We would like to know how confident you are in doing certain activities. Please select your confidence level for:: Select your confidence level for the following using the scale 1-10 where 1 is not at all confident and 10 is totally confident. Your score is the average of all 6 responses. Fatigue: How confident are you that you can keep the fatigue caused by your disease from interfering with the things you want to do? Select Number: 6 Physical Discomfort or Pain: How confident are you that you can keep the physical discomfort or pain of your disease from interfering with the things you want to do? Select Number: 7 Emotional Distress: How confident are you that you can keep the emotional distress caused by your disease from interfering with the things you want to do? Select Number: 8 Other Symptoms or Health Problems: How confident are you that you can keep other symptoms or health problems from interfering with the things you want to do? Select Number: 7 Different Tasks and Activities: How confident are you that you can do the different tasks and activities needed to manage your health condition so as to reduce your need to see a doctor? Select Number: 5 Medication: How confident are you that you can do things other than just taking medication to reduce how much your illness affects your everyday life? Select Number: 6 Total Score:: 6 Nutrition Survey - Nutrition Survey Instructions Scoring Instructions: Scoring is as follows: Yes = 1 points. No = 0 point. Patient score that is >/=12 is considered to be at potential nutritional risk and could benefit from a referral to a registered dietitian. - Nutrition Survey Initial Have you lost >10 lbs over the past 2 months without trying?: No Are you following a special diet at home for diabetes, low fat, or low salt?: No Are you interested in meeting with a dietitian for help understanding your diet?: Yes Do you eat less than 3 meals a day?: No Do you eat fatty meats (ram, sausage, ribs, etc), fried foods, desserts, large amounts of salad dressings, margarine, butter, or cheese most days?: No Do you have food allergies? [Enter types in comment field]: No Do you eat in restaurants more than 3 times a week?: No Do you season food with salt, seasoning salt, or garlic salt?: Yes Do you used canned, boxed, frozen meals, or soups, seasoning packets?: Yes Total Score:: 3
[2020-06-06 08:30] VITALS: BP 114/72; PULSE 66; RESP 18; TEMP 36.3; O2SAT 98; BMI 34.2
[2020-06-06 09:17] VITALS: BP 114/72; BMI 34.2
== END ==
PROVIDERS: PCP Family Medicine; Referring Provider Internal Medicine Cardiovascular Disease; Visit Provider Internal Medicine Cardiovascular Disease
DX: I10 Essential (primary) hypertension (principal); E66.9 Obesity, unspecified; E78.5 Hyperlipidemia, unspecified; C91.10 Chronic lymphocytic leukemia of B-cell type not having achieved remission; I25.10 Atherosclerotic heart disease of native coronary artery without angina pectoris; I25.2 Old myocardial infarction

== ENCOUNTER → 2021-05-10 06:37 | Outpatient (CLI) | payer MEDICARE, SELFPAY ==
[2020-06-06 09:17] VITALS: BMI 34.2
[2021-05-02 11:01] VITALS: BMI 36.3
--- NOTE | 2021-05-10 17:05 | STRESSREP_ITS ---
Stress Test Report Myocardial perfusion SPECT stress test. 75-year-old male with a history of previous coronary artery disease angioplasty of the right coronary artery and status post coronary bypass surgery. Stress protocol: Resting EKG demonstrates normal sinus rhythm with a rate of 64 bpm normal intervals are noted resting blood pressure is 116/64 mmHg. 0.4 mg of regadenoson was infused per usual protocol followed by rapid venous saline flush injection continuous EKG monitoring was performed. The maximum heart rate attained was 86 bpm which was 60% of maximum predicted heart rate the maximum workload was 1 metabolic equivalent. At rest there were no ST or T wave changes noted to suggest abnormal flow reserve and at peak infusion nonspecific ST c hanges were noted. No clinical angina was present. Myocardial perfusion protocol. 14.8 mCi of technetium 99m sestamibi was injected at rest. 0.4 mg of regadenoson was infused per usual protocol. Peak infusion 44.4 mCi of technetium 99m sestamibi was injected stress images were obtained stress and rest images were reconstructed and compared in the short axis vertical long horizontal long axis. Gated images were also obtained Perfusion SPECT analysis: Review of the stress images demonstrate normal uptake of tracer noted in the septum anterior wall and lateral wall. There is a defect noted in the mid and basal inferior wall. This is present on the stress images. The resting images demonstrate improvement in the inferior wall suggesting evidence of inferior ischemia with evidence of a previous basal inferior infarct. Gated SPECT analysis: The gated ejection fraction is 48%. Conclusion: Abnormal pharmacologic myocardial perfusion stress test with evidence of inferior ischemia. 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
== END ==
PROVIDERS: Referring Provider Physician Assistant Medical; Visit Provider Physician Assistant Medical
DX: I20.0 Unstable angina (principal); R07.9 Chest pain, unspecified
CPT/HCPCS: 78452; 93017; A9500; A4216; J2785

== ENCOUNTER 2021-05-17 06:25 | Day surgery (SDC) | payer MEDICARE, SELFPAY ==
[2020-06-06 09:17] VITALS: BMI 34.2
[2021-05-02 11:01] VITALS: BMI 36.3
--- NOTE | 2021-05-14 08:59 | RAD_ITS ---
STUDY: X-RAY CHEST REASON FOR EXAM: Male, 75 years old. chest pain TECHNIQUE: 2 views COMPARISON: 05/15/2020 FINDINGS: The lungs are clear and expanded but heavy markings seen at the bases. . The apices and the costophrenic angles are clear. Normal size heart. Normal mediastinum and aiden. Normal visualized pulmonary arteries. There is marked tortuosity of the thoracic aorta. There are multiple metallic metallic stitches along the sternum from previous surgery. Normal visualized thoracic spine. Normal visualized ribs, clavicles, and shoulders. There is no demonstrated abnormality of the visualized soft tissue structures of the upper abdomen. RAD/Chest PA and Lateral IMPRESSION: Heavy markings seen in the lower lung valdez but no obvious consolidation or atelectasis.. Electronically Signed: Heidy Tejeda, at 14:07 EDT Tel , Service support ,
[2021-05-14 10:01] LABS: Absolute Lymphocyte Count 13.08 X10^3/uL (0.83-4.51); Absolute Neutrophil Count 3.6 X10^3/uL (2.0-7.7); Basophil# 0.04 X10^3/uL; Basophil% 0.2 % (0-1); Eosinophil# 0.24 X10^3/uL; Eosinophils% 1.4 % (0-5); Hematocrit 40.2 % (40-54); Hemoglobin 13.7 g/dL (13.0-16.5); Lymphocyte # 13.08 X10^3/ul (0.83-4.51); Lymphocyte % 74.5 % (19-41); Mean Corp Hgb Conc 34.1 g/dL (32-36); Mean Corpuscular Hgb 32.7 pg (27.0-32.0); Mean Corpuscular Volume 95.9 fL (80-94); Mean Platelet Vol. 9.8 fl (6.2-12.0); Monocyte# 0.51 X10^3/uL; Monocyte% 2.9 % (0-10); NRBC Flagged by Analyzer 0 % (0-5); Neutrophil # 3.63 X10^3/uL (2.7-7.7); Neutrophil % 20.7 % (47-70); POSITIVE DIFFERENTIAL YES; Platelet Count 118 K/mm3 (150-450); RBC Distribution Width CV 13.2 % (11.6-14.6); RBC Distribution Width SD 46.5 fl (35.1-43.9); Red Blood Count 4.19 M/mm3 (4.6-6.2); White Blood Count 17.6 K/mm3 (4.4-11.0)
[2021-05-14 10:43] LABS: Anion Gap 8 (5-15); BUN 19 mg/dL (7-18); BUN/Creat Ratio 15.8 RATIO (10-20); Calcium,Total 9.1 mg/dL (8.5-10.1); Chloride 104 mmol/L (98-107); EST Glomerular Filtration Rate 62 mL/min (>60); Est Glom Filt Rate - Afr Amer 75 mL/min (>60); Glucose 120 mg/dL (74-106); Sodium Level 139 mmol/L (136-145)
[2021-05-14 10:57] LABS: Differential Indicated SCAN CRITERIA MET
[2021-05-14 11:41] LABS: Platelet Estimate SLT DEC (ADEQ); Reactive Lymphocyte 1+; Red Cell Morphology NORM C+C NORMAL (NORM C&C)
[2021-05-16 07:53] VITALS: BMI 36.3
--- NOTE | 2021-05-17 12:31 | CL.D_ITS ---
Patient Name: SILVIANO GONZALEZ Study Date: 05/17/2021 Performing: Yohannes Ricci MD Ht: 72.83 inches 185 cm : 1945 Wt: 275.58 lbs 125 kg Age: 75 Gender: male BSA: 2.46 PROCEDURE(S) PERFORMED [id number]/COR/CABG CLINICAL PROFILE AND INDICATIONS Indications: Suspected CAD Heart Failure: None Stress/Imaging Date: 05/10/21ress Test with SPECT MPI: Positive Intermediate Risk CAD Presentations: Stable angina. CONCLUSIONS Bilateral internal mammary grafts are noted to be patent, saphenous vein grafts were known to be occl uded, and [place] right coronary artery was occluded. RECOMMENDATIONS Consider PCI to the ostial left circumflex artery. DESCRIPTION OF PROCEDURE The patient arrived to the procedure lab. The risks and benefits of the procedure as well as a full d escription of our services here and current unavailability of surgical backup were fully explained to the patient and/or their significant other prior to the catheterization. The Timeout was completed, verifying the correct patient and procedure. The patient's procedural site was prepped and draped in the usual fashion. Local anesthetic was given subcutaneously to right radial region with Lidocaine 2% . Local anesthetic was given subcutaneously to right groin region with Lidocaine 2%. Using a modified Seldinger technique, arterial access was obtained via the right radial artery, a 6Fr sheath was inse rted., arterial access was obtained via the right femoral artery, a 5Fr sheath was inserted. Right i nternal mammary artery graft to the RCA selective angiography was performed in multiple views using a 5 Fr. IM catheter. Left Coronary Artery selective angiography was performed in multiple views using a 5 Fr. JL4 catheter. Left internal mammary artery graft to the LAD selective angiography was performed in multiple views using a 5 Fr. JL4 catheter. CORONARY ANGIOGRAPHY DOMINANCE: Right Dominant LEFT HEART ASSESSMENT Left Ventricular Ejection Fraction: by Echo 55 % LEFT MAIN: Angiographically normal LEFT ANTERIOR DESCENDING ARTERY: OSTIAL LAD: is occluded CIRCUMFLEX ARTERY: OSTIAL CIRC: Ostial circumflex with 80% stenosis, first obtuse marginal branch with mild disease. Se cond obtuse marginal branch which was stented appears to be patent with mild diffuse disease, the mid circumflex artery which was also stented has moderate disease in the mid to distal segment has a 50% stenosis with diffuse disease noted in the distal branches. RIGHT CORONARY ARTERY: OSTIAL RCA: is occluded GRAFTS: LIU graft to the Mid LAD is patent CRYSTAL graft to the Distal RCA is patent Saphenous Vein graft to the 2nd OM is totally occluded AORTIC ROOT: tortuous COMPLICATIONS PROCEDURE MEDICATIONS Versed 1 mg IV Fentanyl 50 mcg IV Oxygen: 2 L/min via nasal cannula Heparin given IA 05/17/2021 08:05:59 SUMMARY OF HEMODYNAMIC DATA Time AIR REST ECG 07:01:40 Art 116/63 (80) 07:52:40 AO 97/62 (79) SA 08:05:52 Signed By Yohannes Ricci MD On 05/17/2021 08:58:42 Yohannes Ricci MD
== END 2021-05-17 14:40 | disposition home or self-care (01) ==
LOC: CLSP 06:26
PROVIDERS: Referring Provider Internal Medicine Cardiovascular Disease; Visit Provider Internal Medicine Cardiovascular Disease
DX: I25.118 Atherosclerotic heart disease of native coronary artery with other forms of angina pectoris (principal); E78.00 Pure hypercholesterolemia, unspecified; I10 Essential (primary) hypertension; I25.2 Old myocardial infarction; E66.9 Obesity, unspecified; C91.10 Chronic lymphocytic leukemia of B-cell type not having achieved remission; I73.9 Peripheral vascular disease, unspecified; I65.29 Occlusion and stenosis of unspecified carotid artery; M48.02 Spinal stenosis, cervical region; Z68.36 Body mass index [BMI] 36.0-36.9, adult; Z79.899 Other long term (current) drug therapy; Z79.82 Long term (current) use of aspirin; Z95.1 Presence of aortocoronary bypass graft; Z87.891 Personal history of nicotine dependence
CPT/HCPCS: 36415; 71046; 80048; 85025; 93455; 99152; 99153; J7040; Q9967; C1769; C1894

== ENCOUNTER → 2021-06-01 11:11 | Outpatient (CLI) | payer MEDICARE, SELFPAY ==
[2020-06-06 09:17] VITALS: BMI 34.2
[2021-05-16 07:53] VITALS: BMI 36.3
[2021-06-01 13:53] LABS: Hematocrit 40.1 % (40-54); Hemoglobin 13.6 g/dL (13.0-16.5); Mean Corp Hgb Conc 33.9 g/dL (32-36); Mean Corpuscular Hgb 32.7 pg (27.0-32.0); Mean Corpuscular Volume 96.4 fL (80-94); Mean Platelet Vol. 10.3 fl (6.2-12.0); Platelet Count 100 K/mm3 (150-450); RBC Distribution Width CV 13.4 % (11.6-14.6); RBC Distribution Width SD 47.8 fl (35.1-43.9); Red Blood Count 4.16 M/mm3 (4.6-6.2); White Blood Count 17.2 K/mm3 (4.4-11.0)
[2021-06-01 14:22] LABS: Anion Gap 4 (5-15); BUN 26 mg/dL (7-18); Calcium,Total 8.3 mg/dL (8.5-10.1); Chloride 105 mmol/L (98-107); Creatinine, Serum 1.24 mg/dL (0.70-1.30); EST Glomerular Filtration Rate 60 mL/min (>60); Est Glom Filt Rate - Afr Amer 73 mL/min (>60); Glucose 112 mg/dL (74-106); Sodium Level 136 mmol/L (136-145)
== END ==
DX: I25.10 Atherosclerotic heart disease of native coronary artery without angina pectoris (principal)
CPT/HCPCS: 36415; 80048; 85027

== ENCOUNTER → 2021-06-19 09:26 | Outpatient (CLI) | payer MEDICARE, SELFPAY ==
[2020-06-06 09:17] VITALS: BMI 34.2
[2021-06-06 09:23] VITALS: BMI 36.1
--- NOTE | 2021-06-19 09:31 | CR.ITP_ITS ---
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, previous CABG, AAA Repair, HTN, HLD Personal Learning Style:: Audio/Visual, Written Barriers to Learning: Hearing Impairment, Vision Impairment Gave educational material for:: Treating Heart Disease, Emotions & Heart Disease, Stress Management & Relaxation, Sleep Disorders & Heart Disease, How The Heart Works, What it means to have Heart Disease, How Coronary Artery Disease is Diagnosed, Heart Procedures, What Heart Medications Do, Risk Factors & Modifications, Living an Active Life, Nutrition - Education/Goals Individual Counseling: Initial Assessment: Abnormal Cholesterol Levels, High Blood Pressure, Overweight/Obesity Cardiac Rehabilitation Goals: 1. Maintain the individual as the primary focus of care. 2. To improve the patient's quality of life. 3. Identification of cardiac risk factors and provide cardiac risk factor management. 4. Enhance the psychosocial status of the patient. 5. Reconditioning enough to allow the patient to resume customary activities. 6. Control symptoms of cardiac disease Personal Goals: Initial Assessment: Improve management of stress and emotions, Improve energy level, Participate in home exercise program, Get back to work, or to resume activities faster, Improve muscle strength and endurance, Improve diet and eating habits (eat healthier), Control risk factors (learn risk factor modification) Scale for measuring improvement of personal goals: Enter appropriate number in Comments. 2 = Unchanged. 3 = Slightly Better. 4 = Moderate Improvement. 5 = Met my Goal - Diagnosis & Disease Process Outcomes/Goals: Pt IDs own risk factors & lifestyle modifications by Session 10, Verbalizes symptoms of angina & response by session 3., Pt independently manages Plan/Interventions: Assist Pt to ID & engage in lifestyle modification to reduce CVD risk, Instruct on individual risk factors, Review symptoms of angina & emergency actions, Review secondary diagnosis & identify educational needs. - Safety Referral to Physical Therapy: No Referral to [facility] Case Management: No Fall Risk Assessed:: Yes Assistive Devices:: None Exercise - Initial Assessment - Visit Date of Eval: 06/19/21 Session #:: 0 - pre-cardiac rehab evaluation Mets: Pre-: >7 METS for 30 minutes by discharge - Physician Prescribed Exercise Modalities: Treadmill, Rower, Airdyne, NuStep Frequency: 3x/week for 12 weeks [36 sessions] Intensity: 60-80% of age predicted maximum heart rate reserve Resting Blood Pressure: 118/74 EKG Type: Sinus Rhythm - Outcomes & Goals Goals:: Verbalizes understanding of THR, RPE & goal METS by session 6, Documents in home exercise log/reports 30 min aerobic 5 day/wk by DC, Demonstrates accurate pulse taking by DC - Intervention & Plan Exercise Program Goals: Instruct on personal THR & RPE, Instruct on MET level & personal MET goal, Show patient to take own pulse /validate performance until ac curate, Instruct on home exercise - Physical Activity Home Exercise Physical Activity - Home Exercise: Safe Exercise, Warm-up, Self-monitoring, Cool-Down, Home Exercise > 30 min Daily, Sitting Time <3 hours/daily - Outcomes & Goals Outcomes/Goals: Demonstrates correct Warm-up/exercise Cool-Down (S3) if = 2.5 METs, Verbalizes symptoms of exercise intolerance by Session 3 (S3), Demonstrate safe equipment use (S3) & follows exercise prescrition (6) - Intervention & Plan Plan/Intervention: Instruct warm-up & cool-down if exercising at > 2 METs, Instruct on symptoms of exercise intolerance & actions to take, Instruct & monitor on saf, Assess intial functional capacity & safety risk Nutrition - Initial Assessment - Program Goals Nutrition Program Goals: LDL <100 optimal. 100 - 129 Near optimal. 130 - 159 Borderline High. 160 - 189 High. Total Cholesterol <200 desirable. 200 - 239 Borderline High. >/= 240 High. HDL < 40 Low >/=60 High. Triglycerides <150 desirable. <199 optimal. VlDL 5 - 40. HgbA1C <7%. BMI <25 Patient has diagnosis of Hyperlipidemia (ICD E78)?: Yes - Visit Date of Assessment:: 06/19/21 Session #:: 0 - pre-cardiac rehab evaluation - Cholesterol/Lipids Triglycerides (mg/dL): 81 - 04/07/2020 Total Cholesterol (mg/dL): 136 LDL Cholesterol (mg/dL): 69 HDL Cholesterol (mg/dL): 51 Determine presence & major risk factors that modify LDL goal: Cigarette smoking - Former Smoker, Hypertension or hypertensive medication, Low HDL cholesterol <40 mg/dL*, Age men > 45 years; women >/= 55 years Outcomes/Goals: Pt IDs own risk factors & lifestyle modifications by Session 10, Verbalizes symptoms of angina & response by session 3., Pt independently manages Intervention/Plan: Instruct on personal lipid levels & lipid goals/NCEP guidelines, Instruct on cholesterol Referral to dietitian:: Yes - Medical Nutrition Therapy - Diabetes (Other Core Measures) Diabetes Type: Not Applicable - Weight Mgt (Other Care) Not Applicable: No Height: 6 ft 1 in Weight:: 274 lb BMI: 36.1 Diagnosis Overweight/Obesity BMI> 30% ICD-10 E66: Yes Diagnosis High BMI/Morbid Obesity BMI> 35% ICD-10 Z68: Yes Outcomes/Goals: Pt sets, maintains & shows weight loss goal & trend during rehab Intervention/Plan: Instruct on ideal BMI & set weight loss goal w/patient, Assist pt to ID & incorporate diet changes for weight loss by S9, Refer to Structured Weight Loss program as appropriate, Encourage goal of using 250- 300dcal per session for weight loss - Healthy Eating Habits Will attend diet classes:: Yes Outcomes/Goals:: Consume diet rich in vegs,fruits,whole grain/high fiber,fish,l beverly meat, Limit sat/trans fats,cholesterol & added salts & sugars Intervention/Plan:: Assess current eating habits Nutrition - 30-Day Assessment Nutrition - 60-Day Assessment Nutrition - 90-Day Assessment Nutrition - Final Assessment Medical - Initial Assessment - Visit Date of Eval: 06/19/21 Session #:: 0 - pre-cardiac rehab evaluation - Medication Compliance Preventative Medication(s):: Aspirin, Clopidogrel/P2Y12 inhibit, Statin/lipid, Beta john H/O mental health issues: depression, anxiety, or addiction?: No Doesn?t believe in the benefits of treatment?: No Believes medications are unnecessary or harmful?: No Has a concern about medication side effects?: No Expresses concern over the cost of medications?: No Outcomes/Goals: Verbalizes medications,desired effect & common side effects @ DC, Pt self-reports following medication regimen, Keeps card in wallet w/medications listed by DC Interventions/plans: Instruct on medication effects & side effects, Review medication list w/patient every two weeks, Instruct importance of taking meds as ordered & assist problem solving - Tobacco Use Tobacco Use: Non-smoker - former smoker - Hypertension Resting Blood Pressure:: 118/74 [place] [employer] Hypertension Guidelines: [place] [employer] Hypertension Guidelines. Normal BP Less than 120/80. Elevated BP 120/80. Hypertension Stage 1: BP 130-139/80-89. Hypertesnion Stage 2: BP 140 or higher/90 or higher. Hypertension Crisis: BP higher than 180/120 Outcomes/Goals: Able to verbalize/achieve optimal blood pressure <130/80, Incorporates diet changes & exercise for blood pressure control by DC Interventions/plan: Instruct on optimal blood pressure, hypertension & medications, Instruct on effects of sodium, alcohol, stress, exercise &hypertension - Tobacco Cessation Referral Smoking Cessation Referral:: No Individual Education/Counseling:: No Education Schedule Given:: Yes Medical- 30-Day Assessment Medical- 60-Day Assessment Medical- 90-Day Assessment Medical - Final Assessment Psychosocial - Initial Assess - VIsit Date of Eval: 06/19/21 Session #:: 0 - pre-cardiac rehab evaluation Not Applicable: Yes History of previous Mental disease:: No - Psychosocial Test Tool Used:: Nirav Denis QOL Cardiac, PHQ-9 Questionnaire phq-9 Severity: Severity. 1-4 Minimal Depression. 5-9 Mild Depression. 10-14 Moderate Depression. 15-19 Moderately Sever Depression. 20-27 Severe Depression. Rule: - Referral to Behavioral Health PS - Interventions: Yes Attend Stress Management Classes, No Referral to Behavioral Health if PHQ-9 score >9:, No Referral to [facility], No Referral to Physician if PHQ-9 if score is 5-9: - Outcomes/Goals: See list Psychosocial Outcomes/Goals:: ID's personal stressors & 2 strategies to manage stress by discharge - Intervention/Plan: See List Interventions/Plan:: Assess stressors,coping strategies & signs of derpression on admission, Instruct/assist pt to develop coping & personal stress Mgt strategies, Instruct patient to recognize signs & symptoms of depression, Instruct patient to recog Psychosocial - 30-Day Assess Psychosocial - 60-Day Assess Psychosocial - 90-Day Assess Psychosocial - Final Assessmen Patient Health Questionnaire Initial Assessment 1. Little interest or pleasure in doing things: Several days 2. Feeling down, depressed, or hopeless: Not at all 3. Trouble falling or staying asleep, or sleeping too much: Several days 4. Feeling tired or having little energy: Several days 5. Poor appetite or overeating: More than half the days 6. Feeling bad about yourself -- or that you are a failure or have let yourself or your family down: Not at all 7. Trouble concentrating on things, such as reading the newspaper or watching television: Several days 8. Moving or speaking so slowly that other people could have noticed. Or the opposite - being so fidgety or restless that you have been moving around a lot more than usual: More than half the days 9. Thoughts that you would be better off , or of hurting yourself in some way: Not at all How difficult have these problems made it for you to do your work, take care of things at home, or get along with other people?: Somewhat difficult Total Score: 8 LAUREL-Q SV Test - Statements CAD is a disease of the arteries in the heart: False Examples of risk factors for heart disease: True Angina is chest pain or discomfort: True The benefits of resistance training include: True Eating more meat and dairy products: False Anti-platelet medications such as aspirin are important: True The only effective way to manage stress: False An exercise warm-up slowly increases heart rate: True Prepared, processed foods usually have high sodium: True Depression is common after a heart attack: I Don't Know The statin medications lower cholesterol: True To control blood pressure, lower the amount of sodium: True If someone gets chest discomfort during walking: False Transfats are partially hydrogenated vegetable oils: True Sleep apnea that is not treated increases the risk: I Don't Know To control cholesterol, one should become a vegetarian: False Someone knows if he/she is exercising at the right level: True Diabetes cannot be prevented with exercise & health eating: I Don't Know Stress is a large risk for heart attack: True A diet that can help lower blood pressure is rich in: True - Total Score Total Correct Responses: 17 Self-Efficacy Initial Assessment We would like to know how confident you are in doing certain activities. Please select your confidence level for:: Select your confidence level for the following using the scale 1-10 where 1 is not at all confident and 10 is totally confident. Your score is the average of all 6 responses. Fatigue: How confident are you that you can keep the fatigue caused by your disease from interfering with the things you want to do? Select Number: 8 Physical Discomfort or Pain: How confident are you that you can keep the physical discomfort or pain of your disease from interfering with the things you want to do? Select Number: 7 Emotional Distress: How confident are you that you can keep the emotional distress caused by your disease from interfering with the things you want to do? Select Number: 7 Other Symptoms or Health Problems: How confident are you that you can keep other symptoms or health problems from interfering with the things you want to do? Select Number: 7 Different Tasks and Activities: How confident are you that you can do the different tasks and activities needed to manage your health condition so as to reduce your need to see a doctor? Select Number: 8 Medication: How confident are you that you can do things other than just taking medication to reduce how much your illness affects your everyday life? Select Number: 7 Total Score:: 7 Nutrition Survey - Nutrition Survey Initial Have you lost >10 lbs over the past 2 months without trying?: Yes Are you following a special diet at home for diabetes, low fat, or low salt?: No Are you interested in meeting with a dietitian for help understanding your diet?: No Do you eat less than 3 meals a day?: No Do you eat fatty meats (ram, sausage, ribs, etc), fried foods, desserts, large amounts of salad dressings, margarine, butter, or cheese most days?: Yes Do you have food allergies? [Enter types in comment field]: No Do you eat in restaurants more than 3 times a week?: Yes Do you season food with salt, seasoning salt, or garlic salt?: No Do you used canned, boxed, frozen meals, or soups, seasoning packets?: Yes Total Score:: 4
--- NOTE | 2021-06-19 09:31 | CR.HP_ITS ---
CR - History & Physical - General Arrival date:: 06/19/21 Arrival time:: 09:35 Date of Referral:: 05/29/21 Date of CR Evaluation:: 06/19/21 Referring Physician: Dr. Yohannes Ricci Primary Diagnosis: PCI w/coronary stenting - History of Present Cardiac Event Onset Date: Enter Onset Date of cardiac illnesses in Comment field below Coronary Artery Bypass Graft:: Yes - 1991 PTCA or coronary stenting:: Yes - 05/25/2021 Type of Symptoms:: Dr. Ricci, referred to cardiac rehab. Had been experiencing shortnesso fbreath adn Dr. Ricci scheduled stress test. Eventually was sent up to [facility] for further evaluation due to previous heart histrory and eventually had a heart cath and stents. - Sleep Disorder Evaluation Hx of Sleep Apnea: Yes Do you snore loudly (louder than talking or can be heard through closed doors)?: No Do you often feel tired/ fatigued/ sleepy during daytime?: Yes Has anyone observed you stop breathing during sleep?: No History of Hypertension (for STOP score): Yes - with Leukemia history makes me tired also. STOP Results: Positive - Medications Home Medications: Ambulatory Orders Medication Instructions Recorded lisinopril 20 1 tab PO DAILY 04/03/20 mg-hydrochlorothiazide 12.5 mg tablet tamsulosin 0.4 mg capsule 0.4 mg PO DAILY 04/03/20 aspirin 81 mg tablet,delayed 81 mg PO DAILY 04/04/20 release atorvastatin 40 mg tablet 40 mg PO QHS 04/04/20 isosorbide mononitrate 60 mg 60 mg PO DAILY #90 tab 05/17/21 tablet,extended release 24 hr metoprolol succinate 25 mg 25 mg PO DAILY #90 tab 05/17/21 tablet,extended release 24 hr clopidogrel 75 mg tablet 75 mg PO DAILY 05/29/21 pantoprazole 40 mg tablet,delayed 40 mg PO DAILY 05/29/21 release - Allergies Allergies/Adverse Reactions: Allergies Penicillins Allergy (Verified 06/06/21 09:30) Hives carvedilol [From Coreg] Adverse Reaction (Intermediate, Verified 06/06/21 09:30) Unknown doxycycline Adverse Reaction (Intermediate, Verified 06/06/21 09:30) GI intolerance Advanced Directives - Advanced Directives Power of Breakfast Supervisor: Yes Living Will: Yes Advance Directives Information Provided: No Advance Directives on File: No DNR Order?:: Yes - MOLST See MOLST form: No Past Medical History - Covid-19 Screening Fever: No Unexplained muscle aches: No Current respiratory symptoms: No Upper respiratory infections symptoms: No Gastro-intestinal symptoms: No Tho-Unst-Rupnhr symptoms: No Has tested positive for COVID-19 in last 30 days: Yes Date of testin02/08/21 - Had Moderna Covid vaccine Had contact w/person w/symptoms or Covid-19 (+) last 14 days: No Has High Risk Exposures ID'd by Health dept/Inf Control team: No 65 years or older:: Yes Lives in Assisted Living facility:: No Has a chronic lung disease or moderate to severe asthma:: No Has a serious heart condition:: Yes Immunocompromised:: Yes Severely obese (Body Mass Index of 40 or higher):: No Diabetic:: No Has chronic kidney disease undergoing dialysis:: No Has liver disease:: No - Past Medical Illness Medical History: Past Medical History (Last Reviewed 06/06/21 @ 09:34 by Marcia Ochoa) Abdominal aortic aneurysm (AAA) I71.4 Infrarenal abdominal aortic aneurysm with bilateral common iliac artery aneurysms. infrarenal abdominal aortic stent graft repair. [place] Excluder main body via the right common femoral 35 x 14 x 14. Right unilateral sellers bottom extension 27 x 14. Left contralateral sellers bottom extension on the right it was 27 x 10 and on the left it is 27 x 14. 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 History of cervical spinal surgery Onset Date: 12/20/19 Z98.890 C3-5 cervical laminectomy in [place] 12/20/2019 History of coronary angioplasty Onset Date: 1990 Z98.61 PTCA-RCA 1990 History of coronary artery stent placement Onset Date: 05/25/21 Z95.5 VCE-QDP-Pmvl OM1 w/ 2.25 x 16 mm Promus Synergy, CLAUDINE mid LCx w/2.25 x 16 mm Promus Synergy 05/17/2020; CTE-XET-Vqez LCx w/ 3.5 x 12 mm , Xience [place] Stent 05/25/21 History of endovascular stent graft for abdominal aortic aneurysm (AAA) Onset Date: 11/07/16 Z95.828 infrarenal abdominal aortic stent graft repair. [place] Excluder main body via the right common femoral 35 x 14 x 14. Right unilateral sellers bottom extension 27 x 14. Left contralateral sellers bottom extension on the right it was 27 x 10 and on the left it is 27 x 14. 11/07/16 History of left heart catheterization Onset Date: 05/17/21 Z98.890 Social History - Smoking History Smoking Status: Former smoker Hx Smoking Cessation Date: 02/04/05 Hx Tobacco Use: No Hx Smoking Exposure: No - Alcohol Use Alcohol Usage: Yes - Occasional alcohol use. - Substance Abuse Hx Substance Use: No - Occupation Occupation (List type of work in comments):: Retired - Hobbies, Recreation, Social Activities Hobbies: Sports - Enjoy swimming at the [facility] really helps with back stenosis pain., Exercise - ride bike, swimming, walk Recreational Activities: I am able to engage in a few activities Social Environment - Status Marital Status: - Current Living Arrangements Living Environment:: Alone - Children How many children do you have?: 1 - Daughter Do any of your children live nearby?: Yes - Safety Do you feel safe in your surroundings?: Yes - Assistance Do you need any assistance at home?: no Review of Systems - Review of Systems Hints: Right click = Denies ([place]). Left click = Reports ([place]) Review of Present Symptoms: Reports: Shortness of Breath with Exertion, Dizziness/Lightheadedness - rare occasions, Fatigue, Appetite - Normal - over eating since stent, Sleep - Normal. Denies: Shortness of Breath at Rest, Appetite - Special Diet, Sexual Changes - Pain Pain Location: neck - cervical stenosis with surgical procedure to correct., back - spinal stenosis no strength in the right leg possibly due from the stenosis, lower extremity - weakness in right leg from cervical and spinal stenosis. Pain Level: 10 Risk Factor Assessment - Chief Complaint Chief Complaint: 75M who presents to cardiac rehab today following recent PCI intervention. - Vital Signs Temperature: 97.5 F Respiratory Rate: 16 Pulse Ox: 95 Blood Pressure: 118/74 - Hypertension Blood Pressure Sitting - Left Arm: 118/74 - Blood Cholesterol/Lipids Total Cholesterol (mg/dL) Goal = less than 200 mg/dL: 136 - 04/07/2020 HDL Cholesterol (mg/dL) Goal = less than 40 mg/dL: 51 LDL Cholesterol (mg/dL) Goal = less than 70 mg/dL: 69 Triglycerides (mg/dL) Goal = less than 150 mg/dL: 81 - Obesity Height: 6 ft 1 in Weight:: 274 lb Weight in Pounds: 274.0 lbs Weight Source: Stated by Patient Body Mass Index (BMI): 36.1 - Physical Inactivity Physical Inactivity: Reg Exercise 30 min/day, Recreational activity - Risk Stratification Risk Guidelines: Lowest Risk: Risk Factor for Smoking, Risk Factor for Diabetes, Risk Factor for Hypertension, Risk Factor for Depression, Moderate Risk: Risk Factor for Dyslipidemia, Highest Risk: Risk Factor for Obesity Motivation - Motivation to Participate On a scale of 1 to 10, how prepared are you to commit to attending program?: 10 What do you see as barriers to successfully being able to complete the program?: none What do you see as the benefits of succesfully completing the program? In other words, what do you hope to get out of participating in the program?: Getting better, healthier. Are there issues you are dealing with that will interfere with completing the program?: no Do you have a spouse or signficant other, family or friends who will help sup port you to complete the program?: yes/friends
[2021-06-19 09:50] VITALS: BP 118/74; BMI 36.1
[2021-06-19 10:06] VITALS: BP 118/74; RESP 16; TEMP 36.4; O2SAT 95; BMI 36.1
== END ==
PROVIDERS: Referring Provider Internal Medicine Cardiovascular Disease; Visit Provider Internal Medicine Cardiovascular Disease
DX: I25.10 Atherosclerotic heart disease of native coronary artery without angina pectoris (principal); I25.810 Atherosclerosis of coronary artery bypass graft(s) without angina pectoris; I25.2 Old myocardial infarction; I71.4 Abdominal aortic aneurysm, without rupture; I10 Essential (primary) hypertension; E78.5 Hyperlipidemia, unspecified; C91.10 Chronic lymphocytic leukemia of B-cell type not having achieved remission; D69.6 Thrombocytopenia, unspecified; Z95.1 Presence of aortocoronary bypass graft; Z95.5 Presence of coronary angioplasty implant and graft

== ENCOUNTER 2021-06-22 10:30 | Outpatient (RCR) | payer MEDICARE, SELFPAY ==
[2021-06-19 09:50] VITALS: BMI 36.1
[2021-06-19 10:06] VITALS: BMI 36.1
== END 2021-06-23 23:59 ==
LOC: CR 10:30
PROVIDERS: Referring Provider Internal Medicine Cardiovascular Disease; Visit Provider Internal Medicine Cardiovascular Disease
DX: I25.810 Atherosclerosis of coronary artery bypass graft(s) without angina pectoris (principal); I25.10 Atherosclerotic heart disease of native coronary artery without angina pectoris; I25.2 Old myocardial infarction; I71.4 Abdominal aortic aneurysm, without rupture; I10 Essential (primary) hypertension; E78.5 Hyperlipidemia, unspecified; C91.10 Chronic lymphocytic leukemia of B-cell type not having achieved remission; D69.6 Thrombocytopenia, unspecified; Z95.5 Presence of coronary angioplasty implant and graft
CPT/HCPCS: 93798

== ENCOUNTER 2021-07-23 10:30 | Outpatient (RCR) | payer MEDICARE, SELFPAY ==
[2021-06-19 09:50] VITALS: BMI 36.1
[2021-06-19 10:06] VITALS: BMI 36.1
--- NOTE | 2021-07-20 09:15 | PCM.CR.ITP ---
Diagnosis Exercise - 30-day Assessment - Visit Date of Eval: 07/20/21 Session #:: 12 - Physician Prescribed Exercise Modalities: Treadmill, Biodyne - Replaced with Lateral Sales Operations Assistant, NuStep, SciFit Frequency: 3x/week for 12 weeks [36 sessions] Intensity: 60-80% of age predicted maximum heart rate reserve Current METSs:: 3.5 increase from 2.0 Target Heart Rate:: 93-121 Current RPE:: 13-14 Maximum Excercise HR:: 90 Resting Blood Pressure: 110/62 Maximum Exercise Blood Pressure: 128/64 EKG Type: NSR with rare PVC and PACs Current Physical Activity or Exercising minutes: 30-45 - Outcomes & Goals Goals:: Verbalizes understanding of THR, RPE & goal METS by session 6, Documents in home exercise log/reports 30 min aerobic 5 day/wk by DC, Demonstrates accurate pulse taking by DC - Intervention & Plan Exercise Program Goals: Instruct on personal THR & RPE, Instruct on MET level & personal MET goal, Show patient to take own pulse /validate performance until accurate, Instruct on home exercise - 30-day Reassessments 30 day Reassessments:: Progressing - Physical Activity Home Exercise Physical Activity - Home Exercise: Safe Exercise, Warm-up, Self-monitoring, Cool-Down, Home Exercise > 30 min Daily, Sitting Time <3 hours/daily - Outcomes & Goals Outcomes/Goals: Demonstrates correct Warm-up/exercise Cool-Down (S3) if = 2.5 METs, Verbalizes symptoms of exercise intolerance by Session 3 (S3), Demonstrate safe equipment use (S3) & follows exercise prescrition (6) - Intervention & Plan Plan/Intervention: Instruct warm-up & cool-down if exercising at > 2 METs, Instruct on symptoms of exercise intolerance & actions to take, Instruct & monitor on saf, Assess intial functional capacity & safety risk - 30-day Reassessments 30 day Reassessments:: Progressing Nutrition - Initial Assessment Nutrition - 30-Day Assessment - Program Goals Nutrition Program Goals: LDL <100 optimal. 100 - 129 Near optimal. 130 - 159 Borderline High. 160 - 189 High. Total Cholesterol <200 desirable. 200 - 239 Borderline High. >/= 240 High. HDL < 40 Low >/=60 High. Triglycerides <150 desirable. <199 optimal. VlDL 5 - 40. HgbA1C <7%. BMI <25 Patient has diagnosis of Hyperlipidemia (ICD E78)?: Yes - Visit Date of Assessment:: 07/20/21 Session #:: 12 - Cholesterol/Lipids Triglycerides (mg/dL): 81 Total Cholesterol (mg/dL): 136 LDL Cholesterol (mg/dL): 69 HDL Cholesterol (mg/dL): 51 Determine presence & major risk factors that modify LDL goal: Hypertension or hypertensive medication, Family history of premature CHD in Male < 55 years: female <65 yearsFa, Age men > 45 years; women >/= 55 years Outcomes/Goals: Pt IDs own risk factors & lifestyle modifications by Session 10, Verbalizes symptoms of angina & response by session 3., Pt independently manages Intervention/Plan: Instruct on personal lipid levels & lipid goals/NCEP guidelines, Instruct on cholesterol Referral to dietitian:: Yes 30-day Reassessments:: Progressing - Diabetes (Other Core Measures) Diabetes Type: Not Applicable - Weight Mgt (Other Care) Height: 6 ft 1 in Weight:: 273 lb BMI: 36.0 Diagnosis Overweight/Obesity BMI> 30% ICD-10 E66: Yes Diagnosis High BMI/Morbid Obesity BMI> 35% ICD-10 Z68: Yes Outcomes/Goals: Pt sets, maintains & shows weight loss goal & trend during rehab Intervention/Plan: Instruct on ideal BMI & set weight loss goal w/patient, Assist pt to ID & incorporate diet changes for weight loss by S9, Refer to Structured Weight Loss program as appropriate, Encourage goal of using 250-300dcal per session for weight loss - Healthy Eating Habits Will attend diet classes:: Yes Outcomes/Goals:: Consume diet rich in vegs,fruits,whole grain/high fiber,fish,lean meat, Limit sat/trans fats,cholesterol & added salts & sugars Intervention/Plan:: Assess current eating habits 30-day Reassessments:: Progressing - Education Gave educational materials for:: Healthy eating Nutrition - 60-Day Assessment Nutrition - 90-Day Assessment Nutrition - Final Assessment Medical - Initial Assessment Medical- 30-Day Assessment - Visit Date of Eval: 07/20/21 Session #:: 12 - Medication Compliance Preventative Medication(s):: Aspirin, Clopidogrel/P2Y12 inhibit, Statin/lipid, Beta john H/O mental health issues: depression, anxiety, or addiction?: No Doesn?t believe in the benefits of treatment?: No Believes medications are unnecessary or harmful?: No Has a concern about medication side effects?: No Expresses concern over the cost of medications?: No Outcomes/Goals: Verbalizes medications,desired effect & common side effects @ DC, Pt self-reports following medication regimen, Keeps card in wallet w/medications listed by DC Interventions/plans: Instruct on medication effects & side effects, Review medication list w/patient every two weeks, Instruct importance of taking meds as ordered & assist problem solving 30-day Reassessments:: Progressing - Tobacco Use Tobacco Use: Non-smoker - Hypertension Hypertension Diagnosis:: Hypertension ICD-10 I10 Resting Blood Pressure:: 110/62 [place] [employer] Hypertension Guidelines: [place] [employer] Hypertension Guidelines. Normal BP Less than 120/80. Elevated BP 120/80. Hypertension Stage 1: BP 130-139/80-89. Hypertesnion Stage 2: BP 140 or higher/90 or higher. Hypertension Crisis: BP higher than 180/120 Peak Exercise Blood Pressure:: 128/64 Outcomes/Goals: Able to verbalize/achieve optimal blood pressure <130/80, Incorporates diet changes & exercise for blood pressure control by DC Interventions/plan: Instruct on optimal blood pressure, hypertension & medications, Instruct on effects of sodium, alcohol, stress, exercise &hypertension 30 day Reassessments:: Progressing - Tobacco Cessation Referral Smoking Cessation Referral:: No Individual Education/Counseling:: No Education Schedule Given:: No Medical- 60-Day Assessment Medical- 90-Day Assessment Medical - Final Assessment Psychosocial - Initial Assess Psychosocial - 30-Day Assess - VIsit Date of Eval: 07/20/21 Session #:: 12 Not Applicable: Yes History of previous Mental disease:: No - Psychosocial Test Tool Used:: PHQ-9 Questionnaire phq-9 Severity: Severity. 1-4 Minimal Depression. 5-9 Mild Depression. 10-14 Moderate Depression. 15-19 Moderately Sever Depression. 20-27 Severe Depression. Rule: - Referral to Behavioral Health PS - Interventions: Yes Attend Stress Management Classes, No Referral to Behavioral Health if PHQ-9 score >9:, No Referral to [facility], No Referral to Physician if PHQ-9 if score is 5-9: - Outcomes/Goals: See list Psychosocial Outcomes/Goals:: ID's personal stressors & 2 strategies to manage stress by discharge - Intervention/Plan: See List Interventions/Plan:: Assess stressors,coping strategies & signs of derpression on admission, Instruct/assist pt to develop coping & personal stress Mgt strategies, Instruct patient to recognize signs & symptoms of depression, Instruct patient to recog - 30-day Reassessments: 30 day Reassessments:: Progressing Psychosocial - 60-Day Assess Psychosocial - 90-Day Assess Psychosocial - Final Assessmen Patient Health Questionnaire 30-Day Re-eval Assessment 1. Little interest or pleasure in doing things: Several days 2. Feeling down, depressed, or hopeless: Not at all 3. Trouble falling or staying asleep, or sleeping too much: Several days 4. Feeling tired or having little energy: Several days 5. Poor appetite or overeating: More than half the days 6. Feeling bad about yourself -- or that you are a failure or have let yourself or your family down: Not at all 7. Trouble concentrating on things, such as reading the newspaper or watching television: Several days 8. Moving or speaking so slowly that other people could have noticed. Or the opposite - being so fidgety or restless that you have been moving around a lot more than usual: More than half the days 9. Thoughts that you would be better off , or of hurting yourself in some way: Not at all How difficult have these problems made it for you to do your work, take care of things at home, or get along with other people?: Somewhat difficult Total Score: 8 Self-Efficacy 30-Day Re-eval Assessment We would like to know how confident you are in doing certain activities. Please select your confidence level for:: Select your confidence level for the following using the scale 1-10 where 1 is not at all confident and 10 is totally confident. Your score is the average of all 6 responses. Fatigue: How confident are you that you can keep the fatigue caused by your disease from interfering with the things you want to do? Select Number: 9 Physical Discomfort or Pain: How confident are you that you can keep the physical discomfort or pain of your disease from interfering with the things you want to do? Select Number: 8 Emotional Distress: How confident are you that you can keep the emotional distress caused by your disease from interfering with the things you want to do? Select Number: 8 Other Symptoms or Health Problems: How confident are you that you can keep other symptoms or health problems from interfering with the things you want to do? Select Number: 8 Different Tasks and Activities: How confident are you that you can do the different tasks and activities needed to manage your health condition so as to reduce your need to see a doctor? Select Number: 9 Medication: How confident are you that you can do things other than just taking medication to reduce how much your illness affects your everyday life? Select Number: 8 Total Score:: 8 Nutrition Survey
[2021-07-20 09:34] VITALS: BP 110/62; BP 128/64; BMI 36.0
== END 2021-07-24 23:59 ==
LOC: CR 10:30
PROVIDERS: Referring Provider Internal Medicine Cardiovascular Disease; Visit Provider Internal Medicine Cardiovascular Disease
DX: I25.810 Atherosclerosis of coronary artery bypass graft(s) without angina pectoris (principal); I25.10 Atherosclerotic heart disease of native coronary artery without angina pectoris; I71.4 Abdominal aortic aneurysm, without rupture; I25.2 Old myocardial infarction; I10 Essential (primary) hypertension; E78.5 Hyperlipidemia, unspecified; C91.10 Chronic lymphocytic leukemia of B-cell type not having achieved remission; D69.6 Thrombocytopenia, unspecified; Z95.1 Presence of aortocoronary bypass graft; Z95.5 Presence of coronary angioplasty implant and graft
CPT/HCPCS: 93798

== ENCOUNTER 2021-07-25 09:49 | Outpatient (RCR) | payer MEDICARE, SELFPAY ==
[2021-07-20 09:34] VITALS: BMI 36.0
[2021-07-25 00:41] VITALS: BP 110/62; BP 128/64; BMI 36.1
--- NOTE | 2021-08-20 07:13 | PCM.CR.ITP ---
Diagnosis Exercise - 60-day Assessment - Visit Date of Eval: 08/20/21 Session #:: 24 Comments:: Patient last attended his 14th session on July 23, 2021. The patient has NOT attended any further CR session since his last ITP update. Nutrition - Initial Assessment Nutrition - 30-Day Assessment Nutrition - 60-Day Assessment Nutrition - 90-Day Assessment Nutrition - Final Assessment Medical - Initial Assessment Medical- 30-Day Assessment Medical- 60-Day Assessment Medical- 90-Day Assessment Medical - Final Assessment Psychosocial - Initial Assess Psychosocial - 30-Day Assess Psychosocial - 60-Day Assess Psychosocial - 90-Day Assess Psychosocial - Final Assessmen Nutrition Survey
== END 2021-08-23 23:59 ==
LOC: CR 09:49
PROVIDERS: PCP Internal Medicine; Referring Provider Internal Medicine Cardiovascular Disease; Visit Provider Internal Medicine Cardiovascular Disease
DX: I25.810 Atherosclerosis of coronary artery bypass graft(s) without angina pectoris (principal); I25.10 Atherosclerotic heart disease of native coronary artery without angina pectoris; I71.4 Abdominal aortic aneurysm, without rupture; I25.2 Old myocardial infarction; I10 Essential (primary) hypertension; E78.5 Hyperlipidemia, unspecified; C91.10 Chronic lymphocytic leukemia of B-cell type not having achieved remission; D69.6 Thrombocytopenia, unspecified; Z95.1 Presence of aortocoronary bypass graft; Z95.5 Presence of coronary angioplasty implant and graft
CPT/HCPCS: 93798

== ENCOUNTER 2021-08-24 06:17 | Outpatient (RCR) | payer MEDICARE, SELFPAY ==
[2021-07-20 09:34] VITALS: BMI 36.0
[2021-08-24 00:32] VITALS: BP 110/62; BP 128/64; BMI 36.1
== END 2021-09-23 23:59 ==
LOC: CR 06:17
PROVIDERS: PCP Internal Medicine; Referring Provider Internal Medicine Cardiovascular Disease; Visit Provider Internal Medicine Cardiovascular Disease
DX: I25.810 Atherosclerosis of coronary artery bypass graft(s) without angina pectoris (principal); I71.4 Abdominal aortic aneurysm, without rupture; I25.2 Old myocardial infarction; I10 Essential (primary) hypertension; E78.5 Hyperlipidemia, unspecified; C91.10 Chronic lymphocytic leukemia of B-cell type not having achieved remission; D69.6 Thrombocytopenia, unspecified; Z95.1 Presence of aortocoronary bypass graft; Z95.5 Presence of coronary angioplasty implant and graft
CPT/HCPCS: 93798

== ENCOUNTER → 2021-09-07 16:06 | Outpatient (CLI) | payer MEDICARE, SELFPAY ==
[2021-07-20 09:34] VITALS: BMI 36.0
[2021-09-07 16:07] LABS: Mucous, Urine 0 SEEN /hpf (<or=2+); Squamous Epithelial Cells - UA 0 SEEN /hpf (0-5)
[2021-09-07 16:33] LABS: Color, Urine Yellow (Yellow); Glucose, Dipstick Normal (Normal); Ketone-Dipstick 5 mg/dl (Negative); Leukocyte Esterase-Dipstick Negative /ul (Negative); Nitrite-Dipstick Negative (Negative); Occult Blood-Urine 250 /ul (Negative); Protein-Dipstick 100 mg/dl (Negative); Specific Gravity, Urine 1.025 (1.002-1.030); Urine Bilirubin Dipstick Negative (Negative); Urine Clarity Clear (Clear); Urine Urobilinogen Normal (Normal)
[2021-09-07 16:48] LABS: Bacteria 1+ /hpf (None Seen); Red Blood Cells-Urine 10-25 SEEN /hpf (0-5); White Blood Cells 0-5 SEEN /hpf (0-5)
== END ==
PROVIDERS: PCP Internal Medicine; Referring Provider Physician Assistant; Visit Provider Physician Assistant
DX: R35.0 Frequency of micturition (principal)
CPT/HCPCS: 81001; 87086

== ENCOUNTER → 2021-09-17 11:01 | Outpatient (CLI) | payer MEDICARE, SELFPAY ==
[2021-07-20 09:34] VITALS: BMI 36.0
[2021-09-17 11:03] LABS: Bacteria 0 SEEN /hpf (None Seen); White Blood Cells 0 SEEN /hpf (0-5)
[2021-09-17 12:08] LABS: Absolute Lymphocyte Count 13.75 X10^3/uL (0.83-4.51); Absolute Neutrophil Count 3.6 X10^3/uL (2.0-7.7); Basophil# 0.04 X10^3/uL; Basophil% 0.2 % (0-1); Eosinophil# 0.15 X10^3/uL; Eosinophils% 0.8 % (0-5); Hematocrit 43.8 % (40-54); Hemoglobin 14.8 g/dL (13.0-16.5); Lymphocyte # 13.75 X10^3/ul (0.83-4.51); Lymphocyte % 75.8 % (19-41); Mean Corp Hgb Conc 33.8 g/dL (32-36); Mean Corpuscular Volume 94.6 fL (80-94); Mean Platelet Vol. 9.9 fl (6.2-12.0); Monocyte# 0.55 X10^3/uL; NRBC Flagged by Analyzer 0 % (0-5); Neutrophil # 3.62 X10^3/uL (2.7-7.7); POSITIVE DIFFERENTIAL YES; Platelet Count 106 K/mm3 (150-450); RBC Distribution Width CV 13.2 % (11.6-14.6); RBC Distribution Width SD 45.5 fl (35.1-43.9); Red Blood Count 4.63 M/mm3 (4.6-6.2); White Blood Count 18.2 K/mm3 (4.4-11.0)
[2021-09-17 12:10] LABS: Differential Indicated SCAN CRITERIA MET
[2021-09-17 12:37] LABS: Vitamin B12 427 pg/mL (211-911); Vitamin D,25 Hydroxy 26.3 ng/mL
[2021-09-17 12:44] LABS: Color, Urine Yellow (Yellow); Glucose, Dipstick Normal (Normal); Ketone-Dipstick Negative (Negative); Leukocyte Esterase-Dipstick Negative /ul (Negative); Nitrite-Dipstick Negative (Negative); Occult Blood-Urine 250 /ul (Negative); Protein-Dipstick 100 mg/dl (Negative); Urine Bilirubin Dipstick Negative (Negative); Urine Clarity Clear (Clear); Urine Urobilinogen Normal (Normal)
[2021-09-17 12:46] LABS: Atypical Lymphocyte 1+ %
[2021-09-17 12:49] LABS: ALB/GLOB Ratio 1.1 RATIO (0.9-2.4); AST(SGOT) 21 U/L (15-37); Alanine Aminotransfer ALT/SGPT 23 U/L (16-61); Albumin, Serum 3.8 g/dL (3.2-5.0); Alkaline Phosphatase 84 U/L (45-117); Anion Gap 6 (5-15); BUN 22 mg/dL (7-18); BUN/Creat Ratio 19.8 RATIO (10-20); Calcium,Total 8.9 mg/dL (8.5-10.1); Chloride 107 mmol/L (98-107); Creatinine, Serum 1.11 mg/dL (0.70-1.30); EST Glomerular Filtration Rate 68 mL/min (>60); Est Glom Filt Rate - Afr Amer 82 mL/min (>60); Free T3 2.5 pg/mL (2.18-3.98); Globulin 3.4 g/dL (2.2-4.2); Glucose 111 mg/dL (74-106); PSA,Total- Diagnostic 1.89 ng/mL (0.0-4.0); Potassium 3.7 mmol/L (3.5-5.1); Protein, Total 7.2 g/dL (6.4-8.2); Sodium Level 138 mmol/L (136-145); T4 Free Direct 0.95 ng/dL (0.76-1.46); Thyroid Stim Hormone (TSH) 2.46 uIU/mL (0.358-3.74)
[2021-09-17 12:50] LABS: Mucous, Urine 2+ /hpf (<or=2+); Red Blood Cells-Urine 25-50 SEEN /hpf (0-5); Squamous Epithelial Cells - UA 0-5 SEEN /hpf (0-5)
== END ==
PROVIDERS: PCP Internal Medicine; Visit Provider Internal Medicine
DX: C91.10 Chronic lymphocytic leukemia of B-cell type not having achieved remission (principal); R41.3 Other amnesia; I10 Essential (primary) hypertension; D69.6 Thrombocytopenia, unspecified; I25.2 Old myocardial infarction; I25.10 Atherosclerotic heart disease of native coronary artery without angina pectoris; E78.5 Hyperlipidemia, unspecified; E55.9 Vitamin D deficiency, unspecified; N40.1 Benign prostatic hyperplasia with lower urinary tract symptoms
CPT/HCPCS: 36415; 80053; 81001; 82306; 82607; 84153; 84439; 84443; 84481; 85025; 87086

== ENCOUNTER → 2021-09-27 14:20 | Outpatient (CLI) | payer MEDICARE, SELFPAY ==
[2021-07-20 09:34] VITALS: BMI 36.0
--- NOTE | 2021-09-27 14:40 | CT_ITS ---
STUDY: CT BRAIN WITHOUT CONTRAST REASON FOR EXAM: Male, 76 years old. Memory loss RADIATION DOSAGE (If Supplied By Facility): CTDIvol = ( 44.99 ) mGy, DLP = ( 880.47 ) mGycm TECHNIQUE: Transaxial CT imaging of the brain was performed without administration of intravenous contrast material. Individualized dose optimization techniques were used for this CT. COMPARISON: No relevant priors. FINDINGS: Normal soft tissue structures. Normal calvarium. There is mild cerebral atrophy with widening of the extra-axial spaces and ventricular dilatation. There are areas of decreased attenuation within the white matter tracts of the supratentorial brain, consistent with microvascular disease changes. Normal basal ganglia and thalami. Normal brainstem. Normal cerebellum. There is no intracranial hemorrhage. There are no findings of an acute ischemic infarction. Atherosclerotic plaque calcification of the cavernous portions of the internal carotid arteries bilaterally. Normal visualized paranasal sinuses. CT/Brain/Head without Contrast IMPRESSION: Chronic involutional changes of the brain. Electronically Signed: Daniel Jaramillo MD at 15:10 EDT , Service support ,
== END ==
PROVIDERS: PCP Internal Medicine; Referring Provider Internal Medicine; Visit Provider Internal Medicine
DX: R41.3 Other amnesia (principal)
CPT/HCPCS: 70450

== ENCOUNTER 2021-12-24 09:27 | Day surgery (SDC) | payer MEDICARE, SELFPAY ==
[2021-07-20 09:34] VITALS: BMI 36.0
[2021-12-24] VITALS (7 sets, daily range): BP systolic 84–126; BP diastolic 52–68; PULSE 64–84; RESP 16; TEMP 36.3–36.6; O2SAT 92–99; BMI 35.9
[2021-12-24] MEDS: Lactated Ringers 1,000 ML 15 ML IV (10:08)
--- NOTE | 2021-12-24 11:00 | IMM_PTH ---
PATIENT: SILVIANO GONZALEZ LOC: EN U#:[id number] AGE/SX: 76/M ROOM: RE12/24/[address]: Dr. Yan Young MD : 1945 BED: DIS: 12/24/2021 SPEC #: [id number] RECD: 12/25/21 09:11 STATUS: FAROOQ REMelissa #: [id number] LITZY: 12/24/21 11:[address]: Yan Young DEPT: IMMUNOHISTOCHEMISTRY RECD BY: Deborah Pastor ENTERED: 12/25/21 09:11 SP TYPE: IMMUNO OTHR DR: Dr. Opal Javier MD Tissues: A - Stomach, NOS Procedures: H Pylori (initial) PHYSICIAN & INSTITUTION [place] [id number] SPECIMEN INFORMATION: Tissue Source: A ? Antrum biopsy Clinical Info: Positive Cologuard Specimen Number: [id number] CPT code: 06958 METHODOLOGY: Deparaffinized sections of prefer/formalin-fixed tissue or PAP/DQ stained slides are incubated with monoclonal/polyclonal antibodies/oligonucleotide probes. Localization is made via biotin free immunoperoxidase method. Appropriate controls are performed and reacted as expected. Results on target cell population are indicated in the following table: RESULTS: ANTIBODY / CLONE RESULT Block A H Pylori (polyclonal) negative These tests were developed and their performance characteristics determined by [facility]. They may not have been cleared or approved by the U.S. Food and Drug Administration. The FDA has determined that such clearance or approval is not necessary. INTERPRETATION: A. Antrum biopsy: Negative for Helicobacter pylori organisms. AM:violet 12/27/2021
--- NOTE | 2021-12-24 11:00 | EGD_PTH ---
PATIENT: SILVIANO GONZALEZ LOC: EN U#:[id number] AGE/SX: 76/M ROOM: RE12/24/[address]: Dr. Yan Young MD : 1945 BED: DIS: 12/24/2021 SPEC #: [id number] RECD: 12/24/21 14:13 STATUS: FAROOQ FLORES #: [id number] LITZY: 12/24/21 11:[address]: Yan Young DEPT: SURGICAL PATHOLOGY RECD BY: Gracy Mendoza ENTERED: 12/25/21 09:45 SP TYPE: EGD BIOPSY OT DR: Dr. Opal Javier MD Tissues: A - Gastric mucous membrane B - Esophagus, NOS Procedures: Special Stain Group II Surgery Specimen Level IV Alcian Blue/PAS (control) HEADER OPERATION: Colonoscopy, EGD ([facility]) PRE-OP DIAGNOSIS: Positive Cologuard, GERD TISSUE SUBMITTED: A ? Antrum biopsy for histo and H. pylori, B ? Distal esophagus biopsy MICROSCOPIC DIAGNOSIS A. Gastric antrum, biopsy: Mild chronic gastritis. See comment. B. Distal esophagus, biopsy: Focal changes of reflux. No evidence of goblet cell metaplasia. See comment. AM:violet 12/26/2021 COMMENT A. The results of immunohistochemistry for Helicobacter pylori will be reported separately ([id number]). B. Alcian blue/PAS stain with matched control supports the above diagnosis. MICROSCOPIC DESCRIPTION Slides are reviewed. GROSS DESCRIPTION A - Received in fixative is one container labeled with the patient's name and designated antrum biopsy. The specimen consists of one irregular fragment of light [place] soft tissue that measures 0.5 x 0.5 x 0.1 cm. The specimen is totally submitted in one cassette. B - Received in fixative is one container labeled with the patient's name and designated distal esophagus. The specimen consists of multiple irregular fragments of light [place] soft tissue that in aggregate measure 1 x 0.3 x 0.1 cm. The specimen is totally submitted in one cassette. / AM:violet 12/25/2021 TC:3 CPT: 75697 x2, 78863
--- NOTE | 2021-12-24 11:20 | PCM.HP.BLA ---
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: No Is patient in pain?: No Allergies Penicillins Allergy (Verified 12/13/21 09:40) Hives carvedilol [From Coreg] Adverse Reaction (Intermediate, Verified 12/13/21 09:40) Unknown doxycycline Adverse Reaction (Intermediate, Verified 12/13/21 09:40) GI intolerance Medications lisinopril 20 mg-hydrochlorothiazide 12.5 mg tablet 1 tab PO DAILY 04/03/20 [History Confirmed 12/13/21] tamsulosin 0.4 mg capsule 0.4 mg PO DAILY 04/03/20 [History Confirmed 12/13/21] aspirin 81 mg tablet,delayed release 81 mg PO DAILY 04/04/20 [History Confirmed 12/13/21] isosorbide mononitrate 60 mg tablet,extended release 24 hr 60 mg PO DAILY #90 tab 05/17/21 [Rx Confirmed 12/13/21] metoprolol succinate 25 mg tablet,extended release 24 hr 25 mg PO DAILY #90 tab 05/17/21 [Rx Confirmed 12/13/21] clopidogrel 75 mg tablet 75 mg PO DAILY 05/29/21 [History Confirmed 12/13/21] pantoprazole 40 mg tablet,delayed release 40 mg PO DAILY 05/29/21 [History Confirmed 12/13/21] atorvastatin 40 mg tablet 20 mg PO QHS tab 07/03/21 [History Confirmed 12/13/21] [facility] Medical History Abdominal aortic aneurysm (AAA) 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 Carotid artery stenosis without cerebral infarction Cervical stenosis of spinal canal (12/10/19) Chronic lymphocytic leukemia Erectile dysfunction Essential hypertension Hyperlipidemia Incontinence Obesity Old inferior wall myocardial infarction (1990) Peptic ulcer Thrombocytopenia Surgical History H/O coronary artery bypass surgery (1991) History of cervical spinal surgery (12/20/19) History of coronary angioplasty (1990) History of coronary artery stent placement (05/25/21) History of endovascular stent graft for abdominal aortic aneurysm (AAA) (11/07/16) History of left heart catheterization (05/17/21) Social History Smoking Status: Former smoker how long ago did patient quit smokin years ago alcohol intake: current alcohol intake frequency: holidays/special occasions only substance use type: does not use caffeine: Yes Type: coffee Number of servings: 2 HPI HPI HPI: SILVIANO GONZALEZ, is a 76 M who presents to the office today for surgical consultation regarding a positive Cologuard test. The patient is referred by Dr. Opal Javier written copy my surgical consult recommendations will return to him. The patient's body weight is 278 pounds and he has had a complicated vascular history of coronary bypass surgery and coronary angioplasty with stenting and aortic stent graft placement and heart catheterization. He was a long-term cigarette smoker. In addition he has problems with essential hypertension and hyperlipidemia and chronic lymphocytic leukemia. Among his other medications he is on pantoprazole and aspirin and clopidogrel. Previous notes reflect that November 07 I performed the infrarenal abdominal aortic stent graft repair for him with a Stanley excluder 35 x 14 x 14. The right common femoral with a unilateral 27 x 14 sellers bottom and on the left he had a 27 x 10 with an additional 27 x 14 sellers bottom. It is of note that the patient has failed to return for follow-up as recommended As of September 17, 2021 his white blood cell count was 18.2 with a hemoglobin 14.8 hematocrit 43.8 platelet count 106,000. BUN was 22 and creatinine 1.1 The patient has had some trouble with hematuria. He has been evaluated by . The patient simply states that he has been confused by some of those recommendations The patient does have chronic gastroesophageal reflux disease. He is on Protonix. He states he is does not take this routinely but that he does have to be careful about food intake. He states that since he has seen me last he had C-spine surgery. He claims that he myocardial infarction on the table as a result of that. After the patient's stent graft repair he reminds me that I had him seeing Dr. Otf Clifford regarding the graft. The patient states that just recently that he has been released from any requirement for any additional follow-up. ROS General General: Yes weight change and fatigue; No appetite, colon cancer, breast cancer or weakness HEENT HEENT: No difficulty swallowing, eye injury, eye surgery, swollen glands or hoarseness Endo Endocrine: No thyroid disease, diabetes mellitus, thyroid cancer, Hair loss, heat intolerance or cold intolerance Skin Skin: Yes changing moles; No rash Breast Breast: No left breast lump, right breast lump, nipple discharge, breast pain, abnormal mammogram, abnormal US or breast enlargement Musc Musculoskeletal: No back problems, arthritis, rheumatoid arthritis, gout or joint pain Cardio Cardiovascular: Yes heart disease, high blood pressure, heart attack and heart stent; No murmur, pacemaker, atrial fibrillation, palpitations, shortness of breat with exertion or chest pain Psych Psychiatric: No depression, anxiety or hearing voices Resp Respiratory: Yes shortness of breath, No sleep apnea, No cough, No COPD, No asthma, No emphysema and No wheezing Gastro Gastrointestinal: No abdominal pain, No nausea or vomiting, No diarrhea, Yes constipation, Yes blood in stool, Yes acid reflux, No hemorrhoids, No ulcers, No gallbladder problem and Yes black,tarry stools Nico Hematologic: Yes blood thinners, Yes blood disorders, Yes bleeding, No anemia and No blood clots Neuro Neurologic: No system reviewed and no additional complaints, except as documented, No as per HPI, No abnormal gait, No abnormal hearing, No abnormal movements, No abnormal speech, No behavioral changes, No burning sensations, No confusion, No convulsions, No disequilibrium, No dizziness, No localized weakness, No frequent falls, No headache(s), No lack of coordination, No loss of vision, No memory loss, Yes numbness, No other visual disturbances, No radicular pain, No restless legs, No sensory deficit, No syncope, Yes tingling, No tremor(s), No weakness and No other Exam Const General: cooperative Nutritional Appearance: obese Orientation: alert Other: Patient appears unstable to a degree, some memory deficit. HENMT Other: Small abrasion noted to left scalp Eyes General: appearance normal, both eyes and all related structures Neck Other: Somewhat stiff decreased range of motion Resp Effort & Inspection: normal respiratory effort Auscultation: clear to auscultation bilaterally Cardio Rate: regular rate Rhythm: regular rhythm GI Other: Soft, overweight, nontender, bowel sounds present Skin Other: Hyperpigmentation to a slight degree bilateral lower extremities Neuro Other: Wide-based unstable flat-footed gait Extrem Other: 2+ bilateral extremity edema Psych Appearance: grossly normal Assessment and Plan Assessment and Plan (1) Positive colorectal cancer screening using Cologuard test: Status: Acute (2) GERD (gastroesophageal reflux disease): Status: Acute Qualifiers: Esophagitis presence: esophagitis presence not specified Qualified Code(s): K21.9 - Gastro-esophageal reflux disease without esophagitis Plan - Dr. Yan Young MD: Patient with a positive Cologuard test. He has symptoms consistent with gastroesophageal reflux disease and he is on medication pantoprazole. Anticoagulant includes aspirin and clopidogrel. The patient has had C-spine surgery. He appears more unsteady than on his previous visits with me. He walks with an unsteady flat-footed gait. I propose for him and attempted a combined esophagogastroduodenoscopy with with possible biopsy as well as a colonoscopy with possible biopsy or polypectomy as indicated. He thinks that his previous colonoscopy was 18 years ago. He additionally notes that his mother required a colostomy and he thinks that was for malignancy. He seems to be less clear about this particular issue. He is aware that he is at increased risk. I will ask him to hold his clopidogrel 2 days prior to the intervention. He is aware of technique, benefit, risk and alternatives. Clearly I will use monitored anesthesia care because of his increased complexity. Copy: Dr. Opal Young M.D., F.A.C.S. I have re-examined the patient. There are no clinical changes since date of exam.
--- NOTE | 2021-12-24 12:18 | OP.CCLET_ITS ---
12/24/2021 Opal Javier [facility] [address] [place] [address] Re : Upper GI endoscopy procedure for Aric Tobin Dear Dr. Javier This procedure was performed on Friday, December 24, 2021. My impressions and recommendations are as follows: Impressions : - LA Grade A reflux esophagitis. Biopsied. - Small hiatal hernia. - Gastritis. Biopsied. - Normal examined duodenum. Recommendations : - Discharge patient to home. - Resume previous diet. - Continue present medications. - Telephone my office for pathology results in 1 week. Patient is to take his pantoprazole on a daily basis please My findings are described in the full procedure note, which is enclosed. If I can be of further assistance, please feel free to contact me at Doctor phone number(s): Work: . Sincerely, Yan Young MD 12/24/2021 12:17:50 PM This report has been signed electronically.
--- NOTE | 2021-12-24 12:18 | OP.EGD_ITS ---
Patient Name: Aric Tobin Procedure Date: 12/24/2021 12:04 PM Date of : 1945 Age: 76 Procedure: Upper GI endoscopy Indications: Cologuard positive Providers: Yan Young MD Medicines: See the Anesthesia note for documentation of the administered medications Complications: No immediate complications. Procedure: Pre-Anesthesia Assessment: - Prior to the procedure, a History and Physical was performed, and patient medications and allergies were reviewed. The patient's tolerance of previous anesthesia was also reviewed. The risks and benefits of the procedure and the sedation options and risks were discussed with the patient. All questions were answered, and informed consent was obtained. Prior Anticoagulants: The patient has taken no previous anticoagulant or antiplatelet agents. ASA Grade Assessment: II - A patient with mild systemic disease. After reviewing the risks and benefits, the patient was deemed in satisfactory condition to undergo the procedure. After obtaining informed consent, the endoscope was passed under direct vision. Throughout the procedure, the patient's blood pressure, pulse, and oxygen saturations were monitored continuously. The Endoscope was introduced through the mouth, and advanced to the second part of duodenum. The upper GI endoscopy was accomplished without difficulty. The patient tolerated the procedure well. Scope In: 12:09:35 PM Scope Out: 12:14:33 PM Total Procedure Duration Time 0 hours 4 minutes 58 seconds Findings: LA Grade A (one or more mucosal breaks less than 5 mm, not extending between tops of 2 mucosal folds) esophagitis with no bleeding was found 43 cm from the incisors. Biopsies were taken with a cold forceps for histology. A small hiatal hernia was present. Diffuse mild inflammation characterized by erythema was found in the gastric antrum. Biopsies were taken with a cold forceps for histology. The examined duodenum was normal. Impression: - LA Grade A reflux esophagitis. Biopsied. - Small hiatal hernia. - Gastritis. Biopsied. - Normal examined duodenum. Recommendation: - Discharge patient to home. - Resume previous diet. - Continue present medications. - Telephone my office for pathology results in 1 week. Patient is to take his pantoprazole on a daily basis please Procedure Code(s): --- Professional --- 74493, Esophagogastroduodenoscopy, flexible, transoral; with biopsy, single or multiple Diagnosis Code(s): --- Professional --- K21.0, Gastro-esophageal reflux disease with esophagitis K44.9, Diaphragmatic hernia without obstruction or gangrene K29.70, Gastritis, unspecified, without bleeding CPT copyright 2017 [employer]. All rights reserved. The codes documented in this report are preliminary and upon interlocking and signal mechanic review may be revised to meet current compliance requirements. Yan Young MD 12/24/2021 12:17:50 PM This report has been signed electronically. Number of Addenda: 0 Note Initiated On: 12/24/2021 12:04 PM
--- NOTE | 2021-12-24 12:33 | OP.CCLET_ITS ---
12/24/2021 Opal Javier [facility] [address] [place] [address] Re : Colonoscopy procedure for Aric Tobin Dear Dr. Javier This procedure was performed on Friday, December 24, 2021. My impressions and recommendations are as follows: Impressions : - Hemorrhoids found on perianal exam. - Diverticulosis in the sigmoid colon. - The examination was otherwise normal. - No specimens collected. Recommendations : - Discharge patient to home. - Resume previous diet. - Continue present medications. - Repeat colonoscopy is not recommended due to current age (66 years or older) for screening purposes. My findings are described in the full procedure note, which is enclosed. If I can be of further assistance, please feel free to contact me at Doctor phone number(s): Work: . Sincerely, Yan Young MD 12/24/2021 12:33:19 PM This report has been signed electronically.
--- NOTE | 2021-12-24 12:33 | OP.COLON_ITS ---
Patient Name: Aric Tobin Procedure Date: 12/24/2021 12:15 PM Date of : 1945 Age: 76 Procedure: Colonoscopy Indications: Cologuard positive Providers: Yan Young MD Medicines: See the Anesthesia note for documentation of the administered medications Patient Profile: Last Colonoscopy: none. The patient's first colonoscopy is today. Complications: No immediate complications. Procedure: Pre-Anesthesia Assessment: - Prior to the procedure, a History and Physical was performed, and patient medications and allergies were reviewed. The patient's tolerance of previous anesthesia was also reviewed. The risks and benefits of the procedure and the sedation options and risks were discussed with the patient. All questions were answered, and informed consent was obtained. Prior Anticoagulants: The patient has taken no previous anticoagulant or antiplatelet agents. ASA Grade Assessment: II - A patient with mild systemic disease. After reviewing the risks and benefits, the patient was deemed in satisfactory condition to undergo the procedure. After I obtained informed consent, the scope was passed under direct vision. Throughout the procedure, the patient's blood pressure, pulse, and oxygen saturations were monitored continuously. The adult colonoscope was introduced through the anus and advanced to the cecum, identified by appendiceal orifice and ileocecal valve. The colonoscopy was performed without difficulty. The patient tolerated the procedure well. The quality of the bowel preparation was good. The ileocecal valve and the appendiceal orifice were photographed. Scope In: 12:20:35 PM Scope Withdrawal Time 0 hours 6 minutes 8 seconds Scope Out: 12:29:20 PM Total Procedure Duration Time 0 hours 8 minutes 45 seconds Findings: Hemorrhoids were found on perianal exam. Multiple diverticula were found in the sigmoid colon. The exam was otherwise without abnormality. Impression: - Hemorrhoids found on perianal exam. - Diverticulosis in the sigmoid colon. - The examination was otherwise normal. - No specimens collected. Recommendation: - Discharge patient to home. - Resume previous diet. - Continue present medications. - Repeat colonoscopy is not recommended due to current age (66 years or older) for screening purposes. Procedure Code(s): --- Professional --- 37584, Colonoscopy, flexible; diagnostic, including collection of specimen(s) by brushing or washing, when performed (separate procedure) Diagnosis Code(s): --- Professional --- K64.9, Unspecified hemorrhoids K57.30, Diverticulosis of large intestine without perforation or abscess without bleeding CPT copyright 2017 [employer]. All rights reserved. The codes documented in this report are preliminary and upon justice court deputy clerk review may be revised to meet current compliance requirements. Yan Young MD 12/24/2021 12:33:19 PM This report has been signed electronically. Number of Addenda: 0 Note Initiated On: 12/24/2021 12:15 PM
== END 2021-12-24 23:59 | disposition home or self-care (01) ==
LOC: EN 09:29 → AC 09:30
PROVIDERS: PCP Internal Medicine; Referring Provider Internal Medicine; Visit Provider Surgery
PROC: 0DJD8ZZ Inspection of Lower Intestinal Tract, Via Natural or Artificial Opening Endoscopic (ICD-10-PCS; CPT 45378; principal; 2021-12-24 10:55)
DX: K21.00 Gastro-esophageal reflux disease with esophagitis, without bleeding (principal); C91.10 Chronic lymphocytic leukemia of B-cell type not having achieved remission; K57.30 Diverticulosis of large intestine without perforation or abscess without bleeding; K44.9 Diaphragmatic hernia without obstruction or gangrene; K64.9 Unspecified hemorrhoids; K29.50 Unspecified chronic gastritis without bleeding; R19.5 Other fecal abnormalities; I25.10 Atherosclerotic heart disease of native coronary artery without angina pectoris; I25.810 Atherosclerosis of coronary artery bypass graft(s) without angina pectoris; I10 Essential (primary) hypertension; E78.5 Hyperlipidemia, unspecified; I25.2 Old myocardial infarction; M19.90 Unspecified osteoarthritis, unspecified site; E66.9 Obesity, unspecified; Z68.35 Body mass index [BMI] 35.0-35.9, adult; Z98.61 Coronary angioplasty status; Z95.828 Presence of other vascular implants and grafts; Z79.82 Long term (current) use of aspirin; Z79.02 Long term (current) use of antithrombotics/antiplatelets; Z79.899 Other long term (current) drug therapy; Z87.891 Personal history of nicotine dependence
CPT/HCPCS: 43239; 45378; 88305; 88313; 88342; J7120; J2405

== ENCOUNTER 2022-06-05 13:02 | Outpatient (RCR) | payer SELFPAY ==
[2021-07-20 09:34] VITALS: BMI 36.0
== END 2022-06-23 23:59 ==
LOC: NS 13:02
PROVIDERS: PCP Internal Medicine; Referring Provider Nurse Practitioner Family; Visit Provider Nurse Practitioner Family
DX: E66.9 Obesity, unspecified (principal); I10 Essential (primary) hypertension; E78.5 Hyperlipidemia, unspecified; I25.810 Atherosclerosis of coronary artery bypass graft(s) without angina pectoris
CPT/HCPCS: 97802

== ENCOUNTER → 2022-06-14 | Outpatient (CLI) | payer MEDICARE, SELFPAY ==
[2021-07-20 09:34] VITALS: BMI 36.0
--- NOTE | 2022-06-14 11:58 | US_ITS ---
STUDY: RENAL ULTRASOUND - COMPLETE REASON FOR EXAM: Male, 76 years old. LUTS, urinary incontinence TECHNIQUE: Ultrasound evaluation of the kidneys was performed with real-time and static rodriguez-scale imaging. COMPARISON: None. FINDINGS: RIGHT KIDNEY: Normal location of the right kidney, which is normal in size. The right kidney measures 11.4 cm x 5.6 cm x 5.6 cm. There is a normal cortex of the right kidney. The renal cortex measures 1.7 cm. There is no right renal mass or cyst. There are no right renal calculi. There is no right hydronephrosis. DISTAL RIGHT URETER: There is non-visualization of the distal right ureter. There is no demonstrated right ureterovesical junction calculus. There is a visualized right ureteral jet. LEFT KIDNEY: Normal location of the left kidney, which is normal in size. The left kidney measures 11.7 cm x 5.6 x 5.2 cm. There is a normal cortex of the left kidney. The renal cortex measures 1.3 cm. There is no left renal mass or cyst. There are no left renal calculi. There is no left hydronephrosis. DISTAL LEFT URETER: There is non-visualization of the distal left ureter. There is no demonstrated left ureterovesical junction calculus. There is a visualized left ureteral jet. BLADDER: The distended urinary bladder has a volume of 118 ml. There is a normal wall thickness of the distended urinary bladder. There is no demonstrated mass within the urinary bladder. There are no demonstrated bladder calculi. US/Kidney and Bladder IMPRESSION: Normal ultrasound of the kidneys and urinary bladder. Electronically Signed: Daniel Jaramillo MD at 13:55 EDT ,
== END | disposition home or self-care (01) ==
LOC: US 11:52
PROVIDERS: PCP Internal Medicine; Visit Provider Internal Medicine
DX: R32 Unspecified urinary incontinence (principal)
CPT/HCPCS: 76770

== ENCOUNTER 2022-06-26 12:59 | Outpatient (RCR) | payer SELFPAY ==
[2021-07-20 09:34] VITALS: BMI 36.0
== END 2022-07-24 23:59 ==
LOC: NS 12:59
PROVIDERS: PCP Internal Medicine; Referring Provider Nurse Practitioner Family; Visit Provider Nurse Practitioner Family
DX: Z71.3 Dietary counseling and surveillance (principal); E66.9 Obesity, unspecified; I10 Essential (primary) hypertension; E78.5 Hyperlipidemia, unspecified; I25.810 Atherosclerosis of coronary artery bypass graft(s) without angina pectoris; Z68.36 Body mass index [BMI] 36.0-36.9, adult
CPT/HCPCS: 97803

== ENCOUNTER 2022-07-17 15:00 | Outpatient (RCR) | payer MEDICARE, SELFPAY ==
[2021-07-20 09:34] VITALS: BMI 36.0
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
--- NOTE | 2022-07-17 15:58 | HP.PTDCSUM_ITS ---
It has been my pleasure to treat SILVIANO GONZALEZ referred by Dr. Opal Javier MD, with the diagnosis of Dorsalgia, falls for a total of 9 visit(s). Discharge Date: 07/17/22 Please see the following information for a summary of their discharge status. Subjective: I have really benefitted from this. 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 Worked 1.5 hours in garden yesterday and weeding. A good pool day helps to loosen him up. Less tired with walks. The longer I sit the worse I get. Slept 7 hours last night after working out. 50% better overall LBP Pain Intensity (Out of 10): 0 % Improvement: 50 Objective/Function: FGA is +3 today. Stiff upon arising but loosens up well adn walks I. Steps reciprocally with one rail slow but steady adn strong. Goal 1:: FGA to diminish fall risk Goal Progress: 25 Goal 2:: I approp HEP (light dumbells, bands and body weight, CV TM if safety allows) to minimize future problems Goal Progress: Goal Met Goal 3:: Pt feel 75% more mobile and less painful/.stiff Goal Progress: 50% Goal 4:: 5 or less oswestry score. Goal Progress: Not Progressing Plan: d/c If there are questions or concerns regarding this patient's physical therapy, please feel free to call me at [phone]. Thank you for the referral of this patient. Sincerely, Ozzie Ren, DPT, OCS, CSCS Balance/Gait/Functional tests - Balance/Special Test Scores Functional Gait Assessment Score: 25 % Disability: 16.6700 Oswestry Low Back Score: 20
== END 2022-07-17 19:00 | disposition home or self-care (01) ==
LOC: PT 15:00
PROVIDERS: PCP Internal Medicine; Referring Provider Internal Medicine; Visit Provider Internal Medicine
DX: M54.9 Dorsalgia, unspecified (principal); Z91.81 History of falling
CPT/HCPCS: 97110; 97162; 97164

== ENCOUNTER → 2022-10-16 | Outpatient (CLI) | payer MEDICARE, SELFPAY ==
[2021-07-20 09:34] VITALS: BMI 36.0
--- NOTE | 2022-10-16 10:32 | RAD_ITS ---
EXAM: XR LUMBOSACRAL SPINE, 2 OR 3 VIEWS CLINICAL INDICATION: LUMBAR SPONDYLOSIS TECHNIQUE: Frontal and lateral views of the lumbar spine and sacrum. This report was created using [employer] report generation technology. COMPARISON: None. FINDINGS: VERTEBRAE: Prominent multilevel vertebral body osteophytosis. L2 spondylolysis. Mild anterior listhesis of L2 on L3 and L3 on L4. Preserved vertebral body height. No fracture. Preservation of the normal lumbar lordosis. DISC SPACES: Multilevel disc space narrowing most pronounced at the L2-3 level. VASCULATURE: Aortobiiliac stent graft in place. RAD/Lumbar Spine 2 or 3 Views IMPRESSION: Prominent diffuse spondylosis Electronically Signed: Santi Valle MD at 11:35 EST ,
== END | disposition home or self-care (01) ==
LOC: RAD 10:31
PROVIDERS: PCP Internal Medicine; Referring Provider Anesthesiology Pain Medicine; Visit Provider Anesthesiology Pain Medicine
DX: M47.896 Other spondylosis, lumbar region (principal); M47.816 Spondylosis without myelopathy or radiculopathy, lumbar region
CPT/HCPCS: 72100

== ENCOUNTER → 2022-11-07 | Outpatient (CLI) | payer MEDICARE, SELFPAY ==
[2021-07-20 09:34] VITALS: BMI 36.0
[2022-11-07 13:34] LABS: Cholesterol 219 mg/dL (200); High Density Lipoprotein 39 mg/dL; Triglycerides 179 mg/dL; Very Low Density Lipoprotein 36 mg/dL (5-40)
== END | disposition home or self-care (01) ==
LOC: LAB 10:25
PROVIDERS: PCP Internal Medicine; Referring Provider Physician Assistant Medical; Visit Provider Physician Assistant Medical
DX: I25.810 Atherosclerosis of coronary artery bypass graft(s) without angina pectoris (principal)
CPT/HCPCS: 36415; 80061

== ENCOUNTER 2022-11-19 11:00 | Outpatient (RCR) | payer MEDICARE, SELFPAY ==
[2021-07-20 09:34] VITALS: BMI 36.0
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
--- NOTE | 2023-02-24 10:00 | HP.PTDCNRP_ITS ---
SILVIANO GONZALEZ was seen in my office for initial evaluation on 10/22/22. The following Plan of Care was established for this patient: Initial Frequency: 3x /Week Initial Duration: 3 Weeks Patient/Client Instruction: Educate patient on: Condition, Plan of Care For the Purpose of:: To decrease pain, To increase ROM, To improve nutrient delivery to tissue, To improve muscle performance and motor function, To improve ability to perform ADL's, To increase tolerance to activity/condition/position, To improve performance and independence with ADL's, To decrease level of supervision to perform tasks, To improve ability of physical actions for home/community/work/leisure, To improve gait and locomotor functions, To improve health of tissue, To increase flexibility/ROM, To improve endurance, To improve balance, To improve safety with gait Therapeutic Exercise to Include: Strength training, Endurance training, Balance training, Body mechanics, Postural training, Flexibilty training, Gait and locomotor training, Neuromotor development, Passive ROM, Active ROM, Dynamic Lumbar Stabilization For the Purpose of:: To decrease pain, To decrease swelling/inflammation, To increase ROM, To improve nutrient delivery to tissue, To improve muscle performance and motor function, To improve ability to perform ADL's, To increase tolerance to activity/condition/position, To improve performance and independence with ADL's, To decrease level of supervision to perform tasks, To improve ability of physical actions for home/community/work/leisure, To improve gait and locomotor functions, To improve health of tissue, To decrease soft tiss ue restriction, To increase flexibility/ROM, To improve endurance, To improve balance, To improve safety with gait Functional Training to Include: Gait training For the Purpose of:: To improve gait and locomotor functions, To improve balance, To improve safety with gait Manual Therapy Techniques to Include: Passive ROM For the Purpose of:: To increase ROM, To improve health of tissue, To decrease soft tissue restriction, To increase flexibility/ROM This patient was last seen in our office 11/19/22. Pertinent comments regarding their Physical therapy will appear below: JOHN PT At this point I will be discontinuing this patient from physical therapy. I would be happy to see this patient again in the future if found appropriate by the physician. Thank you! Mana Davison, MPT Balance/Gait/Functional tests - Balance/Special Test Scores Oswestry Low Back Score: 17
== END 2022-11-19 19:00 | disposition home or self-care (01) ==
LOC: PT 11:00
PROVIDERS: PCP Internal Medicine; Referring Provider Anesthesiology Pain Medicine; Visit Provider Anesthesiology Pain Medicine
DX: M54.50 Low back pain, unspecified (principal)
CPT/HCPCS: 97110; 97116; 97161

== ENCOUNTER → 2023-02-26 | Outpatient (CLI) | payer MEDICARE, SELFPAY ==
[2021-07-20 09:34] VITALS: BMI 36.0
[2023-02-26 16:33] LABS: Absolute Lymphocyte Count 18.98 X10^3/uL (0.83-4.51); Absolute Neutrophil Count 3.8 X10^3/uL (2.0-7.7); Basophil# 0.05 X10^3/uL; Basophil% 0.2 % (0-1); Eosinophil# 0.16 X10^3/uL; Eosinophils% 0.7 % (0-5); Hematocrit 41.2 % (40-54); Hemoglobin 13.7 g/dL (13.0-16.5); Lymphocyte # 18.98 X10^3/ul (0.83-4.51); Lymphocyte % 80.8 % (19-41); Mean Corp Hgb Conc 33.3 g/dL (32-36); Mean Corpuscular Hgb 32.2 pg (27.0-32.0); Mean Corpuscular Volume 96.9 fL (80-94); Mean Platelet Vol. 9.9 fl (6.2-12.0); Monocyte# 0.48 X10^3/uL; NRBC Flagged by Analyzer 0 % (0-5); Neutrophil # 3.76 X10^3/uL (2.7-7.7); Neutrophil % 16.1 % (47-70); POSITIVE DIFFERENTIAL YES; Platelet Count 108 K/mm3 (150-450); RBC Distribution Width CV 13.2 % (11.6-14.6); RBC Distribution Width SD 47.3 fl (35.1-43.9); Red Blood Count 4.25 M/mm3 (4.6-6.2); White Blood Count 23.5 K/mm3 (4.4-11.0)
[2023-02-26 16:35] LABS: Differential Indicated SCAN CRITERIA MET
[2023-02-26 16:52] LABS: Vitamin D,25 Hydroxy 36.6 ng/mL
[2023-02-26 17:04] LABS: AST(SGOT) 24 U/L (15-37); Alanine Aminotransfer ALT/SGPT 28 U/L (16-61); Albumin, Serum 3.9 g/dL (3.2-5.0); Alkaline Phosphatase 76 U/L (45-117); Anion Gap 6 (5-15); BUN 26 mg/dL (7-18); BUN/Creat Ratio 21.8 RATIO (10-20); Calcium,Total 8.6 mg/dL (8.5-10.1); Chloride 108 mmol/L (98-107); Cholesterol 199 mg/dL (200); Creatinine, Serum 1.19 mg/dL (0.70-1.30); EST Glomerular Filtration Rate 63 mL/min (>60); Est Glom Filt Rate - Afr Amer 76 mL/min (>60); Globulin 3.8 g/dL (2.2-4.2); Glucose 121 mg/dL (74-106); High Density Lipoprotein 39 mg/dL; PSA,Total - Annual Screen 1.53 ng/mL (0.00-4.00); Potassium 3.8 mmol/L (3.5-5.1); Protein, Total 7.7 g/dL (6.4-8.2); Sodium Level 138 mmol/L (136-145); Thyroid Stim Hormone (TSH) 1.71 uIU/mL (0.358-3.74); Triglycerides 208 mg/dL; Very Low Density Lipoprotein 42 mg/dL (5-40)
[2023-02-26 17:09] LABS: Differential Comment SCANNED; Reactive Lymphocyte 1+
== END | disposition home or self-care (01) ==
LOC: BIMLAB 13:52
PROVIDERS: PCP Internal Medicine; Visit Provider Internal Medicine
DX: C91.10 Chronic lymphocytic leukemia of B-cell type not having achieved remission (principal); D69.6 Thrombocytopenia, unspecified; R32 Unspecified urinary incontinence; I10 Essential (primary) hypertension; R41.3 Other amnesia; E55.9 Vitamin D deficiency, unspecified; Z95.5 Presence of coronary angioplasty implant and graft; Z12.5 Encounter for screening for malignant neoplasm of prostate
CPT/HCPCS: 36415; 80053; 80061; 82306; 84153; 84443; 85025; G0103

== ENCOUNTER → 2023-10-08 | Outpatient (CLI) | payer MEDICARE, SELFPAY ==
[2021-07-20 09:34] VITALS: BMI 36.0
[2023-10-08 10:22] LABS: Absolute Lymphocyte Count 18.92 X10^3/uL (0.83-4.51); Absolute Neutrophil Count 3.2 X10^3/uL (2.0-7.7); Basophil# 0.06 X10^3/uL; Basophil% 0.3 % (0-1); Eosinophil# 0.27 X10^3/uL; Eosinophils% 1.2 % (0-5); Hemoglobin 13.9 g/dL (13.0-16.5); Lymphocyte # 18.92 X10^3/ul (0.83-4.51); Lymphocyte % 80.9 % (19-41); Mean Corp Hgb Conc 32.3 g/dL (32-36); Mean Corpuscular Hgb 31.8 pg (27.0-32.0); Mean Corpuscular Volume 98.4 fL (80-94); Mean Platelet Vol. 10.4 fl (6.2-12.0); Monocyte# 0.97 X10^3/uL; Monocyte% 4.1 % (0-10); NRBC Flagged by Analyzer 0 % (0-5); Neutrophil # 3.15 X10^3/uL (2.7-7.7); Neutrophil % 13.4 % (47-70); POSITIVE COUNT YES; POSITIVE DIFFERENTIAL YES; POSITIVE MORPHOLOGY YES; Platelet Count 94 K/mm3 (150-450); RBC Distribution Width CV 13.3 % (11.6-14.6); RBC Distribution Width SD 47.9 fl (35.1-43.9); Red Blood Count 4.37 M/mm3 (4.6-6.2); White Blood Count 23.4 K/mm3 (4.4-11.0)
[2023-10-08 10:26] LABS: Differential Indicated SCAN CRITERIA MET
[2023-10-08 10:48] LABS: Vitamin D,25 Hydroxy 42.6 ng/mL
[2023-10-08 10:57] LABS: Differential Comment SCANNED
[2023-10-08 10:58] LABS: Platelet Estimate SLT DEC (ADEQ)
[2023-10-08 11:13] LABS: ALB/GLOB Ratio 1.1 RATIO (0.9-2.4); AST(SGOT) 17 U/L (15-37); Alanine Aminotransfer ALT/SGPT 23 U/L (16-61); Alkaline Phosphatase 84 U/L (45-117); Anion Gap 9 (5-15); BUN 26 mg/dL (7-18); Calcium,Total 8.6 mg/dL (8.5-10.1); Chloride 105 mmol/L (98-107); Cholesterol 145 mg/dL (200); EST Glomerular Filtration Rate 56 mL/min (>60); Est Glom Filt Rate - Afr Amer 68 mL/min (>60); Globulin 3.5 g/dL (2.2-4.2); Glucose 102 mg/dL (74-106); High Density Lipoprotein 47 mg/dL; PSA,Total- Diagnostic 1.09 ng/mL (0.0-4.0); Potassium 4.2 mmol/L (3.5-5.1); Protein, Total 7.5 g/dL (6.4-8.2); Sodium Level 140 mmol/L (136-145); Triglycerides 66 mg/dL; Very Low Density Lipoprotein 13 mg/dL (5-40)
== END | disposition home or self-care (01) ==
LOC: MTLAB 08:53
PROVIDERS: PCP Internal Medicine; Referring Provider Internal Medicine; Visit Provider Internal Medicine
DX: N40.0 Benign prostatic hyperplasia without lower urinary tract symptoms (principal); C91.10 Chronic lymphocytic leukemia of B-cell type not having achieved remission; R32 Unspecified urinary incontinence; I10 Essential (primary) hypertension; E78.5 Hyperlipidemia, unspecified; E55.9 Vitamin D deficiency, unspecified; Z95.5 Presence of coronary angioplasty implant and graft
CPT/HCPCS: 36415; 80053; 80061; 82306; 84153; 84443; 85025

== ENCOUNTER 2024-01-22 10:30 | Outpatient (RCR) | payer MEDICARE, SELFPAY ==
[2021-07-20 09:34] VITALS: BMI 36.0
--- NOTE | 2023-11-27 12:20 | HP.PTEVAL ---
Patient's Visit Information Visit Information Visit Information: SILVIANO GONZALEZ is a 78 year old M referred to Physical Therapy by Dr. Suzan Ndiaye MD with a diagnosis of BACK PAIN. Date of Evaluation: 11/27/23 Physical Therapist: Sina Nesbitt, PT, Cert MDT, OCS Visit Plan Frequency: 2x /Week Duration: 4 Weeks Plan: PT INTERVENTIONS AQUATIC THERAPY FOR LUMBAR ROM,LE FLEXABILITY,BLE STRENGTHENING ,POSTURAL EX'S AND DLS Subjective Subjective: This 78 y/o male presents to physical therapy with back pain. Patient ahs had back pain for several years. Patient had cervical fusion ~ 1 1/2 years in [place]. 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 Prior ton surgery unable ton walk. Patient had Rehab in [place]. Patient return to [place]. Patient seen pain management recommended physical therapy Patient was in involved in [facility] and had hospital stay in 5 days in [place]. Then again had Rehab. Pain had pain epidural injection. Aggravating factors walking ,standing ,lifting and extended sitting. Alleviating factors rest. No medication. Patient has no diagnostics. Patient has to get MRI for lungs and has other comorbities that influence condition leukemia ,AAA surgery . Patient becomes fatigue. Coughing/sneezing-. Bowel/bladder -. Denies paresthesia/tingling in legs .Patient sleeps good. Patient condition affects QOL and function. Patient goal to walk. SOCIAL: single VOCATION: retired Pain Bilateral Back: Pain Intensity (Out of 10): 4 Pain Intensity Range: 10 Objective Objective: POSTURE: mild forward posture hips/knees flexed GAIT: reciprocal pattern slow medardo hips/knees flexed decrease step length SYMMTRIES: align PALAPTION: unremarkable BALANCE: fair + NEURO: denies paresthesia/tingling ,reflexes L3-4,L4-5,L5-S 1 1/3 FLEXABLITY: hamstrings mod tight ,piriformis mod tight LUMBAR ROM: flexion mod loss ,side glides mod loss ,extension severe loss MMT: quads/hams 4/5 ,hip flexion 4-/5 ,ankle 4/5 Special Tests L/S Slump test left side: Negative L/S Slump test right side: Negative L/S Left Straight Leg Raise: Negative L/S Right Straight Leg Raise: Negative Balance/Special Test Scores Oswestry Low Back Score: 27 Goals Goal 1:: Patient to be I with Aquatic therapy program Goal Time Frame: 4-6 Weeks Goal 2:: Patient to improve back oswestry score by 5 points to improve QOL and function. Goal Time Frame: 4-6 Weeks Goal 3:: Patient to improve lumbar ROM for function of recovery to put and tie shoes on Goal Time Frame: 4-6 Weeks Goal 4:: Patient to improve quality of gait with improved gait with improved endurance 50% Goal Time Frame: 4-6 Weeks Goal 5:: Patient to demonstrate 50% improved function and less pain Goal Time Frame: 4-6 Weeks Rehabilitation Potential Physical Therapy Diagnosis: This patient has multiple comorbities along with back pain and h/o cervical surgery with weakness in legs ,decrease gait ,balance impairs function thus benefit from skilled PT Rehabilitation Potential: Fair Anticipated Interventions Patient/Client Instruction: Educate patient on: Condition and Plan of Care For the Purpose of:: To decrease pain, To increase ROM, To improve muscle performance and motor function, To increase tolerance to activity/condition/position, To improve ability of physical actions for home/community/work/leisure, To improve health of tissue, To decrease soft tissue restriction, To increase flexibility/ROM, To improve endurance and To improve balance Therapeutic Exercise to Include: Strength training, Endurance training, Balance training, Body mechanics, Postural training, Flexibilty training, In an aquatic setting , Active ROM and Dynamic Lumbar Stabilization Comment: BLE For the Purpose of:: To decrease pain, To increase ROM, To improve muscle performance and motor function, To improve ability to perform ADL's, To increase tolerance to activity/condition/position, To improve ability of physical actions for home/community/work/leisure, To improve health of tissue, To decrease soft tissue restriction, To increase flexibility/ROM, To improve endurance and To improve balance Text: Thank you for the opportunity to evaluate your patient. For Medicare and Medicare HMO plans, please review the plan of care and approve it. It will need to be FAXED BACK to us at [phone] for Medicare purposes. For Medicare only, by signing this I certify the plan of care. Please let me know if there are questions or concerns regarding this plan of care. Physician Signature: Date:
--- NOTE | 2023-12-30 10:57 | HP.PTREVAL ---
Re-Evaluation Intro: Dr. Suzan Ndiaye MD, It has been my pleasure to treat SILVIANO GONZALEZ over the last 9 visits for BACK PAIN. Please see the progress note below for an update on the physical therapy plan of care! Subjective Subjective: Patient has been more active with ex's at home which helps such as getting up from chair Objective Objective/Function: POSTURE: mild forward posture hips/knees flexed GAIT: reciprocal pattern slow medardo hips/knees flexed decrease step length BALANCE: fair + /GOOD - dynamic balance NEURO: denies paresthesia/tingling ,reflexes L3-4,L4-5,L5-S 1 11/26 FLEXABLITY: hamstrings mod tight ,piriformis mod tight LUMBAR ROM: flexion min/mod loss ,side glides mod loss ,extension severe loss MMT: quads/hams 4/5 ,hip flexion 4-/5 ,ankle 4/5 Plan Plan Plan: PROGRESS TO A GYM PROGRAM TO DO OWN WITH MACHINES PT INTERVENTIONS FOR LUMBAR ROM,LE FLEXABILITY,BLE STRENGTHENING ,POSTURAL EX'S AND DLS Balance/Gait/Functional tests Balance/Special Test Scores Oswestry Low Back Score: 24 Goals Goals Goal 1:: Patient to be I with Aquatic therapy program add gym program Goal Time Frame: 4-6 Weeks Goal Progress: Progressing Goal 2:: Patient to improve back oswestry score by 5 points to improve QOL and function. Goal Time Frame: 4-6 Weeks Goal Progress: Progressing Goal 3:: Patient to improve lumbar ROM for function of recovery to put and tie shoes on Goal Time Frame: 4-6 Weeks Goal Progress: Progressing Goal 4:: Patient to improve quality of gait with improved gait with improved endurance 50% Goal Time Frame: 4-6 Weeks Goal 5:: Patient to demonstrate 50% improved function and less pain Goal Time Frame: 4-6 Weeks Anticipated Interventions Anticipated Interventions Patient/Client Instruction: Educate patient on: Condition and Plan of Care For the Purpose of:: To decrease pain, To increase ROM, To improve muscle performance and motor function, To increase tolerance to activity/condition/position, To improve ability of physical actions for home/community/work/leisure, To improve health of tissue, To decrease soft tissue restriction, To increase flexibility/ROM, To improve endurance and To improve balance Therapeutic Exercise to Include: Strength training, Endurance training, Balance training, Body mechanics, Postural training, Flexibilty training, In an aquatic setting , Active ROM and Dynamic Lumbar Stabilization Comment: BLE For the Purpose of:: To decrease pain, To increase ROM, To improve muscle performance and motor function, To improve ability to perform ADL's, To increase tolerance to activity/condition/position, To improve ability of physical actions for home/community/work/leisure, To improve health of tissue, To decrease soft tissue restriction, To increase flexibility/ROM, To improve endurance and To improve balance Re-Evaluation Ending Re-evaluation ending: Please do not hesitate to contact me at [phone] by phone or if you have questions or concerns regarding this new plan of care! Sincerely, Sina Nesbitt, PT, Cert MDT, OCS
--- NOTE | 2024-01-22 11:22 | HP.PTDCSUM ---
Discharge Summary D/C summary: It has been my pleasure to treat SILVIANO GONZALEZ referred by Dr. Suzan Ndiaye MD, with the diagnosis of BACK PAIN for a total of 13 visit(s). Discharge Date: 01/22/24 Please see the following information for a summary of their discharge status. Subjective Subjective: Doing OKAY ready to ex's own Pain Bilateral Back: Pain Intensity (Out of 10): 1 Shoulder: Pain Intensity (Out of 10): 1 Overall Improvement % Improvement: 50 Objective Objective/Function: POSTURE: mild forward posture hips/knees flexed GAIT: reciprocal pattern slow medardo hips/knees flexed decrease step length BALANCE: fair + /GOOD - dynamic balance NEURO: denies paresthesia/tingling ,reflexes L3-4,L4-5,L5-S 1 1/3 FLEXABLITY: hamstrings mod tight ,piriformis mod tight LUMBAR ROM: flexion min/mod loss ,side glides mod loss ,extension severe loss MMT: quads/hams 4/5 ,hip flexion 4/5 ,ankle 4/5 Goals Goal 1:: Patient to be I with Aquatic therapy program add gym program Goal Progress: Goal Met Goal 2:: Patient to improve back oswestry score by 5 points to improve QOL and function. Goal Progress: Goal Met Goal 3:: Patient to improve lumbar ROM for function of recovery to put and tie shoes on Goal Progress: Goal Met Goal 4:: Patient to improve quality of gait with improved gait with improved endurance 50% Goal Progress: Goal Met Goal 5:: Patient to demonstrate 50% improved function and less pain Goal Progress: Goal Met Plan Plan: D/C D/C Information Discharge Comments: GYM d/c sentence: If there are questions or concerns regarding this patient's physical therapy, please feel free to call me at [phone]. Thank you for the referral of this patient. Sincerely, Sina Nesbitt, PT, Cert MDT, OCS Balance/Gait/Functional tests Balance/Special Test Scores Oswestry Low Back Score: 23 Improvement % Improvement: 50
== END 2024-01-22 19:00 | disposition home or self-care (01) ==
LOC: PT 10:30
PROVIDERS: PCP Internal Medicine; Referring Provider Anesthesiology Pain Medicine; Visit Provider Anesthesiology Pain Medicine
DX: M54.9 Dorsalgia, unspecified (principal)
CPT/HCPCS: 97110; 97113; 97162; 97530

== ENCOUNTER 2024-03-25 12:30 | Outpatient (RCR) | payer MEDICARE, SELFPAY ==
[2021-07-20 09:34] VITALS: BMI 36.0
--- NOTE | 2024-02-06 12:39 | HP.PTEVAL_ITS ---
Patient's Visit Information Visit Information Visit Information: SILVIANO GONZALEZ is a 78 year old M referred to Physical Therapy by Dr. Opal Javier MD with a diagnosis of LEFT SHOULDER PAIN,RIGHT SHOULDER PAIN,PRIMARY OSTEOARTHRITIS LEFT & RIGHT. Date of Evaluation: 02/06/24 Physical Therapist: Sina Nesbitt, PT, Cert MDT, OCS Visit Plan Frequency: 2x /Week Duration: 4 Weeks Plan: PT INTERVENTIONS AAROM/PROM SHOULDER ,PULLEYS ,MANUAL THERAPY G-H JOINT MOBS 2-3 ,RTC/SCAPULAR STRENGTHENING AND POSTURAL EX'S [facility] Subjective Subjective: This 78 y/o male presents to physical therapy with left and right shoulder shoulder pain. Patient has had left shoulder pain several months. Left shoulder worse than right. Patient seen DR Ling had x-rays showed Left shoulder DJD . Patient doesn't want surgery. So ,patient seen Family and recommend PT for bilateral shoulder pain. Family DR recommended celebrex. Patient pain affects sleeping. C/O paresthesia in hands. Aggravating factors lIfting, arm OA activities ,self hygiene affecting houseworking tasks putting on jacket. Patient c/o weakness in arm. Pain described as ache ,located global .Al leviating factors rest. Patient pain and condition affects QOL and function. Patient goals to maintain ROM for ADLS and self hygiene and life style. SOCIAL: single VOCATION: retired Pain Left Shoulder: Pain Intensity (Out of 10): 3 Pain Intensity Range: 10 Right Shoulder: Pain Intensity (Out of 10): 3 Pain Intensity Range: 10 Objective Objective: POSTURE: mild forward posture head forward ,rounded rounded shoulders PALAPTION: unremarkable NEURO: c/o paresthesia/tingling in hands AROM: shoulder flexion left 80 degrees ,right 120 degrees ,abduction left 80 degrees ,right 105 degrees , ER left 60 degrees ,right 60 degrees IR unable behind back CAPSULAR G-H MOBILITY: mod/severe limited MMT: RTC 4-/5 ,DELTOID 4-/5 Balance/Special Test Scores Quick DASH Score: 70.4525 Goals Goal 1:: Patient to be I with HEP for shoulder Goal Time Frame: 4-6 Weeks Goal 2:: Patient to demonstrate 40-50% improvement with less shoulder pain and improved function. Goal Time Frame: 4-6 Weeks Goal 3:: Patient to improve shoulder AROM by 10 degrees for flexion/abduction and ER to improve ADLS and housework tasks with OH activities Goal Time Frame: 4-6 Weeks Goal 4:: Patient to be able to use arm with ADLS self hygiene with min limitations Goal 5:: Patient to improve quick dash by 5 points to improve QOL Goal Time Frame: 4-6 Weeks Rehabilitation Potential Physical Therapy Diagnosis: Patient has left shoulder DJD worse on left > right with pain ,decrease AROM impairs ADL'S ,affecting housework tasks above 90 degrees and self hygiene thus benefit from skilled PT. Rehabilitation Potential: Good Anticipated Interventions Patient/Client Instruction: Educate patient on: Condition and Plan of Care For the Purpose of:: To decrease pain, To increase ROM, To improve muscle performance and motor function, To improve ability to perform ADL's, To increase tolerance to activity/condition/position, To improve performance and independence with ADL's, To improve health of tissue, To decrease soft tissue restriction, To increase flexibility/ROM and To improve tolerance to ADL's Therapeutic Exercise to Include: Strength training, Passive ROM, Active ROM and Scapular Strength/Stabilization For the Purpose of:: To decrease pain, To increase ROM, To improve muscle perf ormance and motor function, To improve ability to perform ADL's, To increase tolerance to activity/condition/position, To improve ability of physical actions for home/community/work/leisure, To improve health of tissue, To decrease soft tissue restriction and To increase flexibility/ROM Manual Therapy Techniques to Include: Mobilization and Passive ROM Comment: G-H GRADE 2-3 For the Purpose of:: To increase ROM, To improve nutrient delivery to tissue, To increase oxygenation perfusion, To improve health of tissue, To decrease soft tissue restriction and To increase flexibility/ROM TENS: Yes IF ES: Yes Cryotherapy (ice pack, ice massage): Yes Thermo therapy (hot pack): Yes Ultrasound (thermal/non thermal): Yes For the Purpose of:: To decrease pain, To increase ROM, To improve nutrient delivery to tissue, To increase oxygenation perfusion, To improve health of tissue and To decrease soft tissue restriction Text: Thank you for the opportunity to evaluate your patient. For Medicare and Medicare HMO plans, please review the plan of care and approve it. It will need to be FAXED BACK to us at [phone] for Medicare purposes. For Medicare only, by signing this I certify the plan of care. Please let me know if there are questions or concerns regarding this plan of care. Physician Signature: Date:
--- NOTE | 2024-03-25 13:00 | HP.PTDCSUM ---
Discharge Summary D/C summary: It has been my pleasure to treat SILVIANO GONZALEZ referred by Dr. Opal Javier MD, with the diagnosis of LEFT SHOULDER PAIN,RIGHT SHOULDER PAIN,PRIMARY OSTEOARTHRITIS LEFT & RIGHT for a total of 10 visit(s). Discharge Date: 03/25/24 Please see the following information for a summary of their discharge status. Subjective Subjective: Ready for d/c ready to go on own Pain Left Shoulder: Pain Intensity (Out of 10): 0 Right Shoulder: Pain Intensity (Out of 10): 0 Overall Improvement % Improvement: 100 Objective Objective/Function: POSTURE: mild forward posture head forward ,rounded rounded shoulders PALAPTION: unremarkable NEURO: c/o paresthesia/tingling in hands AROM: shoulder flexion left 80 degrees ,right 120 degrees ,abduction left 20 degrees ,right 50 degrees , ER left 60 degrees ,right 60 degrees IR S2 CAPSULAR G-H MOBILITY: mod/severe limited MMT: RTC 4/5 ,DELTOID 4-/5 Goals Goal 1:: Patient to be I with HEP for shoulder Goal 2:: Patient to demonstrate 40-50% improvement with less shoulder pain and improved function. Goal 3:: Patient to improve shoulder AROM by 10 degrees for flexion/abduction and ER to improve ADLS and housework tasks with OH activities Goal 4:: Patient to be able to use arm with ADLS self hygiene with min limitations Goal 5:: Patient to improve quick dash by 5 points to improve QOL Plan Plan: D/C TO HEP D/C Information Discharge Comments: HEP d/c sentence: If there are questions or concerns regarding this patient's physical therapy, please feel free to call me at [phone]. Thank you for the referral of this patient. Sincerely, Sina Nesbitt, PT, Cert MDT, OCS Balance/Gait/Functional tests Balance/Special Test Scores Quick DASH Score: 70.4525 Improvement % Improvement: 100
== END 2024-03-25 19:00 | disposition home or self-care (01) ==
LOC: PT 12:30
PROVIDERS: PCP Internal Medicine; Referring Provider Internal Medicine; Visit Provider Internal Medicine
DX: M19.011 Primary osteoarthritis, right shoulder (principal); M19.012 Primary osteoarthritis, left shoulder; M25.512 Pain in left shoulder; M25.511 Pain in right shoulder
CPT/HCPCS: 97110; 97162; 97530

== ENCOUNTER → 2024-03-31 | Outpatient (CLI) | payer MEDICARE, SELFPAY ==
[2021-07-20 09:34] VITALS: BMI 36.0
[2024-03-31 17:44] LABS: Anion Gap 5 (5-15); BUN 25 mg/dL (7-18); BUN/Creat Ratio 18.5 RATIO (10-20); Calcium,Total 8.7 mg/dL (8.5-10.1); Chloride 106 mmol/L (98-107); Creatinine, Serum 1.35 mg/dL (0.70-1.30); EST Glomerular Filtration Rate 54 mL/min (>60); Est Glom Filt Rate - Afr Amer 65 mL/min (>60); Glucose 143 mg/dL (74-106); Magnesium 1.9 mg/dL (1.6-2.6); Potassium 4.2 mmol/L (3.5-5.1); Sodium Level 137 mmol/L (136-145)
== END | disposition home or self-care (01) ==
LOC: LAB 16:59
PROVIDERS: PCP Internal Medicine; Referring Provider Internal Medicine; Visit Provider Internal Medicine
DX: M19.011 Primary osteoarthritis, right shoulder (principal); M19.012 Primary osteoarthritis, left shoulder; I10 Essential (primary) hypertension
CPT/HCPCS: 36415; 80048; 83735

== ENCOUNTER → 2024-04-12 | Outpatient (CLI) | payer MEDICARE, SELFPAY ==
[2021-07-20 09:34] VITALS: BMI 36.0
[2024-04-12 13:16] LABS: Anion Gap 5 (5-15); BUN 24 mg/dL (7-18); BUN/Creat Ratio 16.8 RATIO (10-20); Calcium,Total 9.4 mg/dL (8.5-10.1); Chloride 111 mmol/L (98-107); Creatinine, Serum 1.43 mg/dL (0.70-1.30); EST Glomerular Filtration Rate 51 mL/min (>60); Est Glom Filt Rate - Afr Amer 61 mL/min (>60); Glucose 143 mg/dL (74-106); Sodium Level 141 mmol/L (136-145)
== END | disposition home or self-care (01) ==
LOC: LAB 11:41
PROVIDERS: PCP Internal Medicine; Visit Provider Internal Medicine
DX: I10 Essential (primary) hypertension (principal)
CPT/HCPCS: 36415; 80048

== ENCOUNTER → 2024-04-17 | Outpatient (CLI) | payer MEDICARE, SELFPAY ==
[2021-07-20 09:34] VITALS: BMI 36.0
--- NOTE | 2024-04-17 10:49 | US_ITS ---
EXAM: US RETROPERITONEAL LIMITED, RENAL CLINICAL INDICATION: Increasing creatinine -- PLEASE DO PVR, PLEASE DO PVR,PLEASE DO PVR TECHNIQUE: Limited grayscale and color Doppler sonographic evaluation of the retroperitoneum was performed. COMPARISON: No relevant prior studies available. FINDINGS: RIGHT KIDNEY: Right kidney measures 11.5 cm in length. No hydronephrosis. No shadowing calculus. No perinephric collection is demonstrated. LEFT KIDNEY: Left kidney measures 12.1 cm in length. No hydronephrosis. No shadowing calculus. No perinephric collection is demonstrated. BLADDER: Trabeculation/wall thickening of the urinary bladder which may represent bladder hypertrophy from chronic outlet obstruction and/or cystitis. Prevoid bladder volume is 70 cc and postvoid 49 cc. US/Kidney and Bladder IMPRESSION: 1. No hydronephrosis. 2. Thick-walled trabeculated urinary bladder. Electronically Signed: Santi Valle MD at 17:00 EDT ,
== END | disposition home or self-care (01) ==
LOC: US 10:34
PROVIDERS: PCP Internal Medicine; Referring Provider Internal Medicine; Visit Provider Internal Medicine
DX: R79.89 Other specified abnormal findings of blood chemistry (principal); N40.0 Benign prostatic hyperplasia without lower urinary tract symptoms; R39.9 Unspecified symptoms and signs involving the genitourinary system
CPT/HCPCS: 76770

== ENCOUNTER → 2024-04-26 | Outpatient (CLI) | payer MEDICARE, SELFPAY ==
[2024-04-26 13:46] VITALS: BMI 36.0
--- NOTE | 2024-04-26 15:24 | RAD_ITS ---
INDICATION: Hx cerv stenosis, new neck discomfort, ataxic gair EXAMINATION/TECHNIQUE: X-RAY - XR Spine Cervical 2 or 3 Views COMPARISON: None. FINDINGS: VERTEBRAE: Prior laminectomy and posterior transpedicular fixation C3 C4 C5. Normal cervical spine alignment. No listhesis. No fracture or compression deformity. Mild diffuse anterior endplate small posterior endplate osteophyte formation. No aggressive osseous lesion. Facet arthropathy throughout the cervical spine, right greater than left, most prominent right C2-C3 and right C5-C6 and C6-C7 DISCS: Mild C3-C4 and C4-C5 disc height loss. NECK SOFT TISSUES: No prevertebral soft tissue widening. Normal epiglottis. LUNG APICES: Clear. Sternotomy wires are midline. RAD/Cerv Spine 2 or 3 Views IMPRESSION: Mid cervical laminectomy and posterior transpedicular fixation without evidence of hardware failure or fracture. Spondylosis with facet arthropathy, right greater than left as above Electronically Signed: Earl Davenport MD at 20:13 EDT ,
== END | disposition home or self-care (01) ==
LOC: RAD 15:21
PROVIDERS: PCP Internal Medicine; Referring Provider Internal Medicine; Visit Provider Internal Medicine
DX: R26.0 Ataxic gait (principal); M48.02 Spinal stenosis, cervical region; Z98.890 Other specified postprocedural states
CPT/HCPCS: 72040

== ENCOUNTER → 2024-05-18 | Outpatient (CLI) | payer MEDICARE, SELFPAY ==
[2024-05-12 14:06] VITALS: BMI 36.0
--- NOTE | 2024-05-18 07:22 | MRI_ITS ---
STUDY: MRI CERVICAL SPINE WITHOUT CONTRAST REASON FOR EXAM: Male, 78 years old. Pain. Difficulty walking. TECHNIQUE: Standardized fat and water weighted pulse sequences were obtained in the sagittal and axial planes. COMPARISON: Cervical spine radiographs 05/06/2024. FINDINGS: Normal foramen magnum and brainstem-cervical cord junction. Normal craniovertebral junction. Normal anterior atlantoaxial articulation. Normal odontoid process. Straightening of the C-spine curvature. No suspicious fractures of the vertebral bodies and posterior osseous elements. Postsurgical absence of the spinous processes and lamina from C3 down to C5. Normal alignment. C2-3: Normal endplates. Normal disc height, signal and morphology. Normal central canal and intervertebral neural foramina. C3-4: Normal endplates. Normal disc height with increased disc signal. Minimal ventral extradural defect may represent posterior bulging annulus. Capacious central canal. Normal intervertebral neural foramina. Articular pillar screws and valentina causing some signal distortion artifacts on the facet joints. C4-5: Normal endplates. Normal disc height and morphology. Capacious central canal. Normal intervertebral neural foramina. Articular pillar screws and valentina causing signal distortion artifacts on the facet joints. C5-6: Normal endplates. Normal disc height and morphology. Capacious central canal. Normal intervertebral neural foramina. Articular pillar screws and valentina causing signal distortion artifacts on the facet joints. C6-7: Anterior marginal spurs. Moderate disc space height narrowing with mixed Modic type II and type III changes of the vertebral marrow underneath the vertebral endplates. Mild ventral extradural defect due to posterior marginal spurs. Mild central canal stenosis due to posterior marginal spurs. Mild stenosis of the intervertebral neural foramina due to osteophytes arising from the uncovertebral joints. C7-T1: Normal endplates. Normal disc height, signal and morphology. Normal central canal and intervertebral neural foramina. T2-T3, T3-T4, T4-T5 and T5-T6: (Sagittal only). Normal endplates. Normal disc height and morphology. Normal central canal and intervertebral neural foramina. Normal cervical cord. Normal upper thoracic spinal cord. Normal included portions of the midline brainstem and cerebellum. Normal visualized soft tissue structures. MRI/Spine Cervical (Routine) IMPRESSION: 1. Mild central canal stenosis at C6-C7 disc space level due to posterior marginal spurs and mild stenosis of the intervertebral neural foramina due to osteophytes arising from the uncovertebral joints. 2. No MRI evidence of cervical extruded disc fragment or cervical disc protrusion. 3. Postsurgical absence of the spinous processes and lamina from C3 down to C5 with articular pillar screws and valentina causing signal distortion artifacts at C3-C4 and C4-C5 disc space levels. 4. Normal cervical spinal cord. Electronically Signed: Zechariah Oneal MD at 11:12 EDT ,
[2024-05-18 10:10] LABS: ALB/GLOB Ratio 1.1 RATIO (0.9-2.4); AST(SGOT) 19 U/L (15-37); Alanine Aminotransfer ALT/SGPT 22 U/L (16-61); Albumin, Serum 3.9 g/dL (3.2-5.0); Alkaline Phosphatase 93 U/L (45-117); Anion Gap 6 (5-15); BUN 16 mg/dL (7-18); BUN/Creat Ratio 11.9 RATIO (10-20); Calcium,Total 9.2 mg/dL (8.5-10.1); Chloride 107 mmol/L (98-107); Creatinine, Serum 1.34 mg/dL (0.70-1.30); EST Glomerular Filtration Rate 54 mL/min (>60); Est Glom Filt Rate - Afr Amer 66 mL/min (>60); Globulin 3.4 g/dL (2.2-4.2); Glucose 132 mg/dL (74-106); Potassium 4.1 mmol/L (3.5-5.1); Protein, Total 7.3 g/dL (6.4-8.2); Sodium Level 138 mmol/L (136-145)
[2024-05-18 10:13] LABS: Hemoglobin A1c 5.6 % (3.8-5.6)
[2024-05-19 07:09] LABS: Insulin Level 60.3 uIU/mL (2.6-24.9)
== END | disposition home or self-care (01) ==
PROVIDERS: PCP Internal Medicine; Referring Provider Orthopaedic Surgery Orthopaedic Surgery of the Spine; Visit Provider Orthopaedic Surgery Orthopaedic Surgery of the Spine
DX: G95.9 Disease of spinal cord, unspecified (principal); E16.2 Hypoglycemia, unspecified; R73.9 Hyperglycemia, unspecified
CPT/HCPCS: 36415; 72141; 80053; 83036; 83525

== ENCOUNTER 2024-06-18 16:08 | Inpatient (IN) | payer MEDICARE, SELFPAY ==
[2024-05-12 14:06] VITALS: BMI 36.0
[2024-06-18] VITALS (8 sets, daily range): BP systolic 67–127; BP diastolic 48–76; PULSE 62–81; RESP 13–24; TEMP 36.3–37; O2SAT 92–98; BMI 35.5; BMI 34.7
--- NOTE | 2024-06-18 16:21 | CT_ITS ---
We are attempting to reach an attending provider to discuss findings. An addendum with communication details will be sent when the communication is complete. INDICATION: Neuro deficit, acute, stroke suspected EXAMINATION: CT BRAIN WITHOUT CONTRAST, CTA HEAD, AND CTA NECK TECHNIQUE: Noncontrast axial images were obtained of the brain. Subsequently, routine carotid CT angiogram protocol was performed without and with IV contrast. In addition, images were obtained of the [place] of [place]. NASCET criteria using the distal ICAs for comparison were used for evaluation of stenoses. 3D reconstructions were reviewed. The protocol utilizes one or more of the following dose reduction techniques: automated exposure control, adjustment of mA and/or kV according to patient size,and/or use of iterative reconstruction technique. IV Contrast dosage and agent: 100 cc of Isovue-370 COMPARISON: Noncontrast head CT dated May 2024 FINDINGS: --CT BRAIN WITHOUT CONTRAST: BRAIN PARENCHYMA: No intra- or extra-axial hemorrhage. No evidence of acute infarct. No intracranial mass or mass effect. There is preservation of the reid/white matter interface. Posterior fossa structures are unremarkable. CSF SPACES: Appropriate for age. No hydrocephalus. Basal cisterns are patent. CALVARIUM, SKULL BASE, PARANASAL SINUSES AND MASTOID AIR CELLS: Clear. No discrete lytic or blastic abnormalities. ASPECTS Score for Acute Strokes: 10 --CTA NECK: AORTIC ARCH AND BRANCHES: Normal anatomy, patent. RIGHT CCA: No occlusion, significant stenosis or dissection. RIGHT ICA: No occlusion, significant stenosis or dissection. LEFT CCA: No occlusion, significant stenosis or dissection. LEFT ICA: No occlusion, significant stenosis or dissection. RIGHT VERTEBRAL ARTERY: No occlusion, significant stenosis or dissection. LEFT VERTEBRAL ARTERY: No occlusion, significant stenosis or dissection. NECK SOFT TISSUES: Unremarkable. There are postsurgical changes of the posterior elements of the mid cervical spine. There are degenerative changes of the cervical spine. --CTA HEAD: --Anterior circulation: ICAs: No significant stenosis at the intracranial/visualized segments. ACAs: No significant stenosis at the visualized segments. ACOM: Present. MCAs: No significant stenosis at the visualized segments. --Posterior circulation: PCOMs: Within normal limits. manager news: No significant stenosis at the visualized segments. BASILAR ARTERY: No significant stenosis. VERTEBRAL ARTERIES: No significant stenosis at the intradural/visualized segments. No evidence of intracranial aneurysm or vascular malformation. CT/STROKE CTA Head AND Neck W/Con IMPRESSION: Within normal limits CTA of the head and neck. Electronically Signed: Ellie Smith MD at 17:04 EDT ,
--- NOTE | 2024-06-18 16:21 | CT_ITS ---
We are attempting to reach an attending provider to discuss findings. An addendum with communication details will be sent when the communication is complete. INDICATION: Neuro deficit, acute, stroke suspected EXAMINATION: CT BRAIN - CT Head Stroke Protocol W/O Contrast Injection TECHNIQUE: Multiple axial images were obtained of the head without intravenous contrast. The protocol utilizes one or more of the following dose reduction techniques: automated exposure control, adjustment of mA and/or kV according to patient size,and/or use of iterative reconstruction technique. IV Contrast dosage and agent: None. RADIATION DOSAGE (If Supplied By Facility): CTDIvol = ( ) mGy, DLP = ( ) mGycm COMPARISON: September 27, 2021 FINDINGS: BRAIN PARENCHYMA: No intra- or extra-axial hemorrhage. There are patchy foci of low attenuation within the white matter of the cerebral hemispheres, a nonspecific finding most commonly reflecting small vessel ischemia. No evidence of acute infarct. No intracranial mass or mass effect. There is preservation of the reid/white matter interface. Posterior fossa structures are unremarkable. CSF SPACES: Appropriate for age. No hydrocephalus. Basal cisterns are patent. CALVARIUM, SKULL BASE, PARANASAL SINUSES AND MASTOID AIR CELLS: Clear. No discrete lytic or blastic abnormalities. ORBITS: Both globes, extraocular muscles, optic nerves and retrobulbar fat appear unremarkable. ASPECTS Score for Acute Strokes: 10 CT/STROKE Brain/Head without Cont IMPRESSION: Small vessel ischemia. Electronically Signed: Ellie Smith MD at 16:37 EDT ,
--- NOTE | 2024-06-18 16:21 | EKG12_ITS ---
Test Reason : SYNCOPY Blood Pressure : / mmHG Vent. 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
--- NOTE | 2024-06-18 16:23 | EDS_ITS ---
HPI History of Present Illness Chief Complaint: Syncope Informant: patient and EMS Narrative Narrative: Patient brought by EMS because he was [facility] [employer] today and he had a syncopal episode and did not feel well. Blood sugar 170s. Patient hanane d EMS he had something similar couple weeks ago and his blood sugar was low. He states he felt fine this morning. He is having trouble with his vision right now, and he tells us that started at the [facility] when he started feeling bad and his vision was normal this morning. He states he felt fine yesterday as well. Lives by himself and was at the [facility] by himself. He recalls feeling very dizzy and fell to the ground. EMS reports no trauma. Estimated time this occurred was 1540. [facility] Medical History Primary osteoarthritis, left shoulder Primary osteoarthritis, right shoulder Left shoulder pain Right shoulder pain Wears partial dentures Wears glasses Depression Alcohol use Ambulates with cane Arthritis Prostate disease Anemia Excessive bleeding Easy bruising Injury of back Back pain History of leukemia Injury of head and neck Gastric reflux Former smoker Shortness of breath on exertion History of pain when walking History of edema History of echocardiogram Normal stress echocardiogram History of stress test Cardiology follow-up encounter History of heart attack Thrombocytopenia Old inferior wall myocardial infarction (1990) Abdominal aortic aneurysm (AAA) 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 Cervical stenosis of spinal canal (12/10/19) Incontinence Obesity Erectile dysfunction Peptic ulcer Carotid artery stenosis without cerebral infarction Hyperlipidemia Essential hypertension Home Medications ?Medication ?Instructions ?Recorded ?Last Taken ?Type aspirin 81 mg chewable tablet 81 mg PO DAILY #90 tabs 12/02/22 Unknown Rx pantoprazole 40 mg tablet,delayed 40 mg PO PRN PRN GERD #90 tabs 12/02/22 Unknown Rx release (Protonix) tamsulosin 0.4 mg capsule 0.4 mg PO BID #180 caps 12/02/22 Unknown Rx acyclovir 400 mg tablet 400 mg PO DAILY 09/03/23 Unknown History multivitamin 1 tab PO DAILY 09/03/23 Unknown History rosuvastatin 5 mg tablet (Crestor) 5 mg PO DAILY #60 tabs 09/04/23 Unknown Rx isosorbide mononitrate 60 mg 60 mg PO DAILY #90 tabs 12/04/23 Unknown Rx tablet,extended release 24 hr lisinopril 20 1 tab PO DAILY Pt lost bottle: 12/29/23 Unknown Rx mg-hydrochlorothiazide 12.5 mg please charge fischer tucker #90 tabs tablet clopidogrel 75 mg tablet (Plavix) 75 mg PO DAILY #90 tabs 02/06/24 Unknown Rx celecoxib 100 mg capsule 100 mg PO BID PRN pain #30 caps 03/19/24 Unknown Rx tramadol 50 mg tablet 50 mg PO BID PRN pain #60 tabs 05/31/24 Unknown Rx Allergy/AdvReac Type Severity Reaction Status Date / Time Penicillins Allergy Hives Verified 06/15/24 12:25 carvedilol (From Coreg) AdvReac Intermediate Unknown Verified 06/15/24 12:25 doxycycline AdvReac Intermediate GI Verified 06/15/24 12:25 intolerance Family History (Updated 06/18/24 @ 18:[address] Vibha Carrera MD) Mother Cancer Father Diabetes Heart disease Hypertension Sister Diabetes Surgical History Hx of cystoscopy (~2023) History of left heart catheterization (05/17/21) History of coronary angioplasty (1990) H/O coronary artery bypass surgery (1991) History of coronary artery stent placement (05/25/21) History of cervical spinal surgery (12/20/19) History of endovascular stent graft for abdominal aortic aneurysm (AAA) (11/07/16) Social History (Updated 06/18/24 @ 18:[address] Vibha Carrera MD) household members: none Smoking Status: Former smoker how long ago did patient quit smoking: Quit 05/2007, smoked 1 ppd until quit. alcohol intake: current alcohol intake frequency: holidays/special occasions only substance use type: does not use caffeine: Yes Type: coffee Number of servings: 2 ROS ROS ED Constitutional Constitutional ED: Denies chills or fever(s) Eyes Eyes: Reports change in vision; Denies diplopia ENT ENT ED: Denies rhinorrhea or sore throat Cardiovascular Cardiovascular: Denies chest pain or palpitations Respiratory/Chest Respiratory/Chest: Denies cough or dyspnea Gastrointestinal Gastrointestinal: Denies abdominal pain, diarrhea, nausea or vomiting Genitourinary Genitourinary ED: Denies dysuria or hematuria Musculoskeletal Musculoskeletal: Denies back pain or neck pain Integumentary Denies abscess or rash Neurologic Neurologic: Denies headache(s), paresthesias or weakness Psychiatric Psychiatric: Denies suicidal thoughts EXAM Physical Exam Const Vital Signs: 06/18/24 16:10 06/18/24 16:21 06/18/24 16:21 Temperature 97.6 F L Temperature Source Oral Pulse Rate 81 62 Respiratory Rate 13 18 Respiratory Effort Respiratory Pattern Blood Pressure 67/48 L 70/55 L Blood Pressure Mean 54 60 Pulse Ox 92 96 Oxygen Delivery Method Room Air Room Air Room Air 06/18/24 16:41 06/18/24 16:51 06/18/24 17:00 Temperature Temperature Source Pulse Rate 74 Respiratory Rate 17 Respiratory Effort Normal Respiratory Pattern Normal Blood Pressure 82/56 L Blood Pressure Mean 64 Pulse Ox 97 Oxygen Delivery Method Room Air Room Air 06/18/24 17:15 06/18/24 19:00 06/18/24 19:25 Temperature 97.3 F L Temperature Source Pulse Rate 70 66 68 Respiratory Rate 24 H 18 19 H Respiratory Effort Respiratory Pattern Blood Pressure 84/54 L 90/57 L 90/57 L Blood Pressure Mean 64 68 68 Pulse Ox 96 98 96 Oxygen Delivery Method Room Air Room Air 06/18/24 19:26 Temperature 97.3 F L Temperature Source Temporal Pulse Rate 66 Respiratory Rate 19 H Respiratory Effort Respiratory Pattern Blood Pressure 90/57 L Blood Pressure Mean 68 Pulse Ox 98 Oxygen Delivery Method Room Air Positive well nourished and well developed General Appearance ED: well developed and NAD HEENT Reports moist mucous membranes normocephalic and atraumatic Eyes PERRL and EOMs intact bilaterally Eyes Narrative: Difficulty looking to the left but able to move his eyes. No signs of trauma or discoloration. Neck full ROM and supple Chest Wall inspection of chest normal and palpation of chest normal Resp normal respiratory effort and clear to auscultation bilaterally Cardio regular rate, regular rhythm and no murmurs GI non-tender and non-distended Auscultation: normoactive bowel sounds Palpation: soft Back/Spine General Back: other FROM Extremity normal to inspection Extremity Narrative: Patient has the wrong shoe on the wrong foot. He has to watch his on the left wrist right next to each other. General Extremety ED: Negative for edema, pulses abnormal or tenderness General Extremity: Negative for edema or pulses abnormal Neuro CN's II-XII intact bilaterally and no sensory deficits noted Neuro Narrative: Oriented to person, place, and the month. He gets his age wrong. A little disoriented. Keenly alert. Following commands. He is ataxic when performing [id number] with his right lower extremity but it is not weak or numb. There is no Chris inattention. He appears to have a left hemianopia, and he is having trouble seen in the right upper quadrant visual field with both eyes as well. Sensorium / Orientation: awake and alert Motor Exam: strength 5/5 throughout Skin no rashes or lesions noted and no wounds NIHSS NIHSS Initial: 1a Level of Consciousness: 0 1b LOC Questions (Score 2 if aphasic/stupor): 1 1c LOC Commands (Only score 1st attempt): 0 2 Best Gaze (If aphasic, use reflexive mvmts.): 2 3 Visual: 2 4 Facial Palsy: 0 5 Motor Arm Right (UN = amputation/fusion): 0 5 Motor Arm Left: 0 6 Motor Leg Right: 0 6 Motor Leg Left: 0 7 Limb ataxia (Only + if out of proportion): 1 8 Sensory (Aphasia/stupor=0 or 1, coma=2): 0 9 Best Language: 0 10 Dysarthria (mute, coma=2, intubated=UN): 0 11 Extinction and Inattention (only scored if +): 0 Total Score: 6 Sepsis Attestation Sepsis Alert: Yes Sepsis Attestation: Agree w/Sepsis Date exam was performed: 06/18/24 Time exam was performed: 18:30 Possible Source of Sepsis: Unknown Sepsis Organ Dysfunction Criteria Present: SBP < 90 mmHg or MAP < 65 mmHg Fluid Resuscitation Fluid resuscitation indicated?: Yes Fluid Resuscitation ordered: 30 ml/kg fluid bolus ordered Sepsis Note Date exam was performed: 06/18/24 Time exam was performed: 19:40 Sepsis Attestation: Sepsis re-evaluation was performed Response to fluids: Fluid responsive hypotension (unclear if sepsis process here) MDM MDM MDM Narrative Medical decision making narrative: When it was discovered that this patient may not have had a syncopal episode and may have had vertigo and has a focal field cut in his vision, we did a stroke scale, he appears to have some ataxia although it is limited because he is having trouble seeing anything in front of him that is not off to the right, a stroke team was called. Total NIHSS is 6 see above. Although he states all of this started when he was at the [facility], he has his shoes on opposite feet and he has 2 watches on his left wrist, suggesting maybe he had vision issues this morning when he got dressed. The patient states he felt fine this morning and did not have vision issues this morning. As he was returning from [place] we spoke to a family member who states he has been becoming disoriented for months, increasing confusion, they are thinking he may be developing dementia and she thinks maybe he should not be living on his own anymore. I reevaluate him upon return from CT, I report reviewed the images and spoke with the radiologist, there is no acute hemorrhage. However he is looking at me now saying that I look good and upon reevaluating him neurologically all of his visual valdez are intact now and he states he can see normally. I had him read off objects on the stroke scale card any names of all normally, and he can read the phrases normally. His blood pressure is low. When asked if he felt lightheaded and fell like he was going to pass out he states yes and when asked if he felt like things were moving and/or spinning in his head he states yes. He does not think he completely lost consciousness when he had this episode prior to arrival. I rechecked his blood pressure is in the 80s. Therefore I adding to the workup to include infectious etiology and working him up for sepsis. Spoke live in the room with [facility] telemetry stroke neurology who agrees, no thrombolytics based on this. Consistent with possible sepsis, his white count comes back at 46.3. However, he also has a history of CLL, he follows up once annually for checkups but is not on treatment, and this may be related, especially because the differential is 82% lymphocytes. Radiology called to discuss the CTA results which are negative, there is no LVO. At this point I made his 1 L fluid bolus at 30 cc/kg fluid bolus and reviewed his workup, rest of the labs are noted still waiting on urine. His one-view portable chest x-ray on my interpretation shows some chronic fibrotic versus atelectatic changes in the bases but no acute consolidation/infiltrate. Lactate returned normal. This does not rule out sepsis, but this makes it difficult to rule it in with his high white blood count which may just be related to his CLL. The urine does not show definitive signs of infection neither does the chest x-ray in my judgment. Therefore I am giving him antibiotics after we obtained blood cultures to cover his bases for any type of occult bacterial infection, the recommended antibiotics for our facility are Zosyn and vancomycin. However, he has a penicillin allergy so instead of Zosyn he is getting meropenem. His blood pressure has gradually come up, he is in the high 90s systolic. Clinically he is well and keenly alert and conversive, sitting up in bed. Will discuss with hospitalist for admission further evaluation treatment or workup. History & Record Review Discussion w/independent historian: EMS personnel, Patient and Family Additional record(s) reviewed:: No prior records (nothing recent) Lab Data Attestation: I reviewed the patient's lab results. Labs: Laboratory Results - last 24 hr 06/18/24 06/18/24 06/18/24 16:35 16:50 18:30 WBC 46.3 H* RBC 4.33 L Hgb 13.6 Hct 41.8 MCV 96.5 H MCH 31.4 MCHC 32.5 RDW Std Deviation 47.6 H RDW Coeff of Andrey 13.5 Plt Count 113 L MPV 9.8 Immature Gran % (Auto) 0.300 Neut % (Auto) 16.0 L Lymph % (Auto) 81.8 H [place] % (Auto) 1.4 Eos % (Auto) 0.2 Baso % (Auto) 0.3 Absolute Neuts (auto) 7.5 Absolute Lymphs (auto) 37.83 H Nucleated RBC % 0 Differential Comment SCANNED Diff Path Review March foll PT 14.1 INR 1.1 APTT 28.3 Sodium 137 Potassium 3.8 Chloride 106 Carbon Dioxide 24.0 Anion Gap 7 BUN 22 H Creatinine 1.87 H Estim Creat Clear Calc 43.16 Est GFR (MDRD) Af Amer 45 L Est GFR (MDRD) Non-Af 37 L BUN/Creatinine Ratio 11.8 Glucose 190 H Lactic Acid 1.8 Calcium 9.1 Troponin I High Sens 8 Urine Color Yellow Urine Clarity Clear Urine pH 5.0 Ur Specific [place] 1.010 Urine Protein 15 H Urine Glucose (UA) Normal Urine Ketones Negative Urine Occult Blood 50 H Urine Nitrite Negative Urine Bilirubin Negative Urine Urobilinogen Normal Ur Leukocyte Esterase 100 H Urine RBC 0-5 SEEN Urine WBC 0-5 SEEN Ur Squamous Epith Cells 0-5 SEEN Urine Bacteria 0 SEEN Urine Mucus 0 SEEN POC Glucose 168 H Radiography Diagnostic Testing: Clinical Impression(s) from Imaging Studies Brain CT 06/18/24 16:21 IMPRESSION: Small vessel ischemia. Electronically Signed: Ellie Smith MD at 16:37 EDT , ADDENDUM: 06/18/24 1644 IMPRESSION: Small vessel ischemia. N.B. : The above Results were Read Back by Ellie Smith MD to Jake Bhardwaj MD, and understanding confirmed on 06/18/2024 16:38:31 (ET). Electronically Signed: Ellie Smith MD at 16:37 EDT , Head/Neck CTA 06/18/24 16:21 IMPRESSION: Within normal limits CTA of the head and neck. Electronically Signed: Ellie Smith MD at 17:04 EDT , ADDENDUM: 06/18/24 1711 IMPRESSION: Within normal limits CTA of the head and neck. N.B. : The above Results were Read Back by Ellie Smith MD to Jake Bhardwaj MD, and understanding confirmed on 06/18/2024 17:04:34 (ET). Electronically Signed: Ellie Smith MD at 17:04 EDT , Chest X-Ray 06/18/24 17:00 IMPRESSION: Minimal bibasilar atelectasis and/or pneumonia. Electronically Signed: Ellie Smith MD at 17:30 EDT , Rhythm Strip Rhythm Strip: Sinus Rhythm Rate: 80 Ectopy: None EKG Initial EKG: Attestation: I personally reviewed and interpreted this EKG as follows: Interpretation: Sinus Rhythm, No Acute Injury Pattern and - (inf Q waves) Prior EKG tracings: available for review Prior: Unchanged Management Discussion w/another healthcare provider: Hospitalist, [employer] Installer ([facility] stroke neurology) and Radiologist Stroke Documentation Questions Stroke Team Activated: Yes Was Patient considered for Endovascular Intervention?: No-CTA negative, determined not to be an endovascular candidate IV Thrombolytic Administered: No (rapid improvement of focal neuro deficits, disoriented so unclear LKW) Critical Care Time Critical Care Time: Yes Critical care time (excluding procedures): 30-74 minutes (38 min), Including time spent:, Discussing w/Patient &/or Family/Custom Bookbinder, Discussing w/Consultants, Arranging Admission or Transfer and Performing Direct Patient Care at Bedside Discharge Plan Dx/Rx/DC Orders Clinical Impression: Acute hypotension, Syncope and collapse, Transient visual loss of both eyes, Chronic lymphocytic leukemia, KIET (acute kidney injury), Leukocytosis, Disorientation Disposition Disposition: Acute Care [facility]
--- NOTE | 2024-06-18 16:31 | ED.RN ---
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 shade - sig other -
--- NOTE | 2024-06-18 16:38 | ED.RN ---
ED doctor at bedside
[2024-06-18 16:48] LABS: Absolute Lymphocyte Count 37.83 X10^3/uL (0.83-4.51); Absolute Neutrophil Count 7.5 X10^3/uL (2.0-7.7); Basophil# 0.14 X10^3/uL; Basophil% 0.3 % (0-1); Eosinophil# 0.07 X10^3/uL; Eosinophils% 0.2 % (0-5); Hematocrit 41.8 % (40-54); Hemoglobin 13.6 g/dL (13.0-16.5); Lymphocyte # 37.83 X10^3/ul (0.83-4.51); Lymphocyte % 81.8 % (19-41); Mean Corp Hgb Conc 32.5 g/dL (32-36); Mean Corpuscular Hgb 31.4 pg (27.0-32.0); Mean Corpuscular Volume 96.5 fL (80-94); Mean Platelet Vol. 9.8 fl (6.2-12.0); Monocyte# 0.65 X10^3/uL; Monocyte% 1.4 % (0-10); NRBC Flagged by Analyzer 0 % (0-5); Neutrophil # 7.45 X10^3/uL (2.7-7.7); POSITIVE COUNT YES; POSITIVE DIFFERENTIAL YES; POSITIVE MORPHOLOGY YES; Platelet Count 113 K/mm3 (150-450); RBC Distribution Width CV 13.5 % (11.6-14.6); RBC Distribution Width SD 47.6 fl (35.1-43.9); Red Blood Count 4.33 M/mm3 (4.6-6.2)
[2024-06-18] MEDS: 0.9% Normal Saline (1000mL) 1,000 ML 100 ML IV (16:50)
[2024-06-18 16:52] LABS: Bedside Glucose 168 mg/dL (74-106)
[2024-06-18] MEDS: 0.9% Normal Saline (1000mL) 1,000 ML 999 ML IV (16:57)
--- NOTE | 2024-06-18 17:00 | RAD_ITS ---
INDICATION: Neuro deficit, acute, stroke suspected EXAMINATION/TECHNIQUE: X-RAY - XR Chest 1 View COMPARISON: May 14, 2021 and CTA of the neck dated June 18, 2024 FINDINGS: LINES/DEVICES: None. LUNGS: There are bibasilar ill-defined opacities area No pneumothorax. MEDIASTINUM AND CARDIOVASCULAR STRUCTURES: There are sternotomy wires in place. Cardiac silhouette not enlarged. Descending aorta remains tortuous. BONES AND SOFT TISSUES: Unremarkable. RAD/Chest 1 View IMPRESSION: Minimal bibasilar atelectasis and/or pneumonia. Electronically Signed: Ellie Smith MD at 17:30 EDT ,
[2024-06-18 17:01] LABS: Differential Indicated SCAN CRITERIA MET; White Blood Count 46.3 K/mm3 (4.4-11.0)
[2024-06-18 17:04] LABS: Anion Gap 7 (5-15); BUN 22 mg/dL (7-18); BUN/Creat Ratio 11.8 RATIO (10-20); Calcium,Total 9.1 mg/dL (8.5-10.1); Chloride 106 mmol/L (98-107); Creatinine, Serum 1.87 mg/dL (0.70-1.30); EST Glomerular Filtration Rate 37 mL/min (>60); Est Glom Filt Rate - Afr Amer 45 mL/min (>60); Estimated Creatinine Clearance 43.16 ml/min; Glucose 190 mg/dL (74-106); International Normalized Ratio 1.1; Potassium 3.8 mmol/L (3.5-5.1); Prothrombin Time (Protime)PT. 14.1 SECONDS (11.7-14.9); Sodium Level 137 mmol/L (136-145); Troponin-I HS 8 pg/mL (3.0-78.0)
[2024-06-18 17:05] LABS: Partial Thromboplast Time 28.3 Seconds (24.1-36.2)
[2024-06-18 17:26] LABS: Lactic Acid 1.8 mmol/L (0.4-1.9)
[2024-06-18 17:44] LABS: Differential Comment SCANNED
[2024-06-18 18:33] LABS: Bacteria 0 SEEN /hpf (None Seen); Mucous, Urine 0 SEEN /hpf (<or=2+)
[2024-06-18 18:38] LABS: Color, Urine Yellow (Yellow); Glucose, Dipstick Normal (Normal); Ketone-Dipstick Negative (Negative); Leukocyte Esterase-Dipstick 100 /ul (Negative); Nitrite-Dipstick Negative (Negative); Occult Blood-Urine 50 /ul (Negative); Protein-Dipstick 15 mg/dl (Negative); Urine Bilirubin Dipstick Negative (Negative); Urine Clarity Clear (Clear); Urine Urobilinogen Normal (Normal)
[2024-06-18 18:47] LABS: Red Blood Cells-Urine 0-5 SEEN /hpf (0-5); Squamous Epithelial Cells - UA 0-5 SEEN /hpf (0-5); White Blood Cells 0-5 SEEN /hpf (0-5)
[2024-06-18] MEDS: Meropenem 1 GM in 0.9% Normal Saline (100mL MB+) 100 ML IV (19:24)
--- NOTE | 2024-06-18 19:36 | PCM.HP.STD ---
HPI - General General Date of Admission: 06/18/24 Date of Service: 06/18/24 Chief Complaint: Syncopal episode with hypotension and altered mentation HPI Narrative SILVIANO GONZALEZ, is a 78 M who presented to [facility] ED on 06/18/2024 after a syncopal episode. Patient was brought in by EMS after he had syncopal episode at the [facility] this afternoon. When EMS arrived to [facility], patient was awake and alert but appeared somewhat confused. They also noted that he had two watches on his left wrist and had mismatching shoes on. Patient apparently lives at home alone and was at the [facility] alone, so they brought him in for further evaluation. On arrival here, patient was alert but continued to seem somewhat confused. He noted to ED staff that he was having some vision issues and he was staring off into space at times. He was oriented to person, place and month but got his age wrong and was ataxic performing [id number] maneuver on right lower extremity, and there was concern for a possible left hemianopia. Had NIHSS score of 6 so stroke alert was initiated. CT brain and CTA head/neck were unremarkable. Was evaluated by teleneurology after return from CT and he appeared improved, with NIHSS score of 0. However, patient was also noted to be hypotensive on arrival to the ED and WBC count was 46K concerning for sepsis of unclear etiology. Patient was given 30 cc per kg fluid bolus with some improvement to the 90s over 50s but still somewhat hypotensive. Patient notably is history of hypertension and stated that he had taken his home medications today. He notably was not tachycardic at any point in the ED despite being hypotensive. Patient also notably has a history of CLL. WBC count 46.3 in ED but was 82% lymphocytes. Last CBC from late 2022 showed WBC count of 23, and prior labs had counts in the 17-23 range. Given patient's confusion from baseline and concern for infection with unclear source, patient was given IV antibiotics and hospitalist was contacted for admission. I saw the patient at bedside in the ED. Patient was laying back comfortably in bed and in no acute distress. He was somewhat flushed appearing in the face but denied any fevers or chills. Patient was answering most questions appropriately but notably did have some confusion with certain answers that seemed odd. He denied any pain or discomfort anywhere. Denied any lightheadedness or dizziness. Denied any neck pain or discomfort. No other acute concerns at this time. [facility] Medical History Primary osteoarthritis, left shoulder Primary osteoarthritis, right shoulder Left shoulder pain Right shoulder pain Wears partial dentures Wears glasses Depression Alcohol use Ambulates with cane Arthritis Prostate disease Anemia Excessive bleeding Easy bruising Injury of back Back pain History of leukemia Injury of head and neck Gastric reflux Former smoker Shortness of breath on exertion History of pain when walking History of edema History of echocardiogram Normal stress echocardiogram History of stress test Cardiology follow-up encounter History of heart attack Thrombocytopenia Old inferior wall myocardial infarction (1990) Abdominal aortic aneurysm (AAA) Atherosclerotic heart disease of [place] coronary artery without angina pectoris Atherosclerosis of coronary artery bypass graft without angina pectoris Chronic lymphocytic leukemia Cervical stenosis of spinal canal (12/10/19) Incontinence Obesity Erectile dysfunction Peptic ulcer Carotid artery stenosis without cerebral infarction Hyperlipidemia Essential hypertension Home Medications ?Medication ?Instructions ?Recorded ?Last Taken ?Type aspirin 81 mg chewable tablet 81 mg PO DAILY #90 tabs 12/02/22 Unknown Rx pantoprazole 40 mg tablet,delayed 40 mg PO PRN PRN GERD #90 tabs 12/02/22 Unknown Rx release (Protonix) tamsulosin 0.4 mg capsule 0.4 mg PO BID #180 caps 12/02/22 Unknown Rx acyclovir 400 mg tablet 400 mg PO DAILY 09/03/23 Unknown History multivitamin 1 tab PO DAILY 09/03/23 Unknown History rosuvastatin 5 mg tablet (Crestor) 5 mg PO DAILY #60 tabs 09/04/23 Unknown Rx isosorbide mononitrate 60 mg 60 mg PO DAILY #90 tabs 12/04/23 Unknown Rx tablet,extended release 24 hr lisinopril 20 1 tab PO DAILY Pt lost bottle: 12/29/23 Unknown Rx mg-hydrochlorothiazide 12.5 mg please charge fischer tucker #90 tabs tablet clopidogrel 75 mg tablet (Plavix) 75 mg PO DAILY #90 tabs 02/06/24 Unknown Rx celecoxib 100 mg capsule 100 mg PO BID PRN pain #30 caps 03/19/24 Unknown Rx tramadol 50 mg tablet 50 mg PO BID PRN pain #60 tabs 05/31/24 Unknown Rx Allergy/AdvReac Type Severity Reaction Status Date / Time Penicillins Allergy Hives Verified 06/15/24 12:25 carvedilol (From Coreg) AdvReac Intermediate Unknown Verified 06/15/24 12:25 doxycycline AdvReac Intermediate GI Verified 06/15/24 12:25 intolerance Family History (Updated 06/18/24 @ 18:[address] Vibha Carrera MD) Mother Cancer Father Diabetes Heart disease Hypertension Sister Diabetes Surgical History Hx of cystoscopy (~2023) History of left heart catheterization (05/17/21) History of coronary angioplasty (1990) H/O coronary artery bypass surgery (1991) History of coronary artery stent placement (05/25/21) History of cervical spinal surgery (12/20/19) History of endovascular stent graft for abdominal aortic aneurysm (AAA) (11/07/16) Social History (Updated 06/18/24 @ 18:[address] Vibha Carrera MD) household members: none Smoking Status: Former smoker how long ago did patient quit smoking: Quit 05/2007, smoked 1 ppd until quit. alcohol intake: current alcohol intake frequency: holidays/special occasions only substance use type: does not use caffeine: Yes Type: coffee Number of servings: 2 ROS Constitutional Constitutional: Denies chills, fatigue, fever(s) or weakness Eyes Eyes: Denies change in vision Cardiovascular Cardiovascular: Reports syncope; Denies chest pain, edema, lightheadedness or palpitations Respiratory/Chest Respiratory/Chest: Denies cough or shortness of breath at rest Gastrointestinal Gastrointestinal: Denies abdominal pain Musculoskeletal Musculoskeletal: Denies arthralgias or myalgias Neurologic Neurologic: Denies dizziness, focal weakness or headache(s) Vital Signs Vital Signs Vital Signs: 06/18/24 16:10 06/18/24 16:21 06/18/24 16:21 Temperature 97.6 F L Temperature Source Oral Pulse Rate 81 62 Respiratory Rate 13 18 Respiratory Effort Respiratory Pattern Blood Pressure 67/48 L 70/55 L Blood Pressure Mean 54 60 Pulse Ox 92 96 Oxygen Delivery Method Room Air Room Air Room Air 06/18/24 16:41 06/18/24 16:51 06/18/24 17:00 Temperature Temperature Source Pulse Rate 74 Respiratory Rate 17 Respiratory Effort Normal Respiratory Pattern Normal Blood Pressure 82/56 L Blood Pressure Mean 64 Pulse Ox 97 Oxygen Delivery Method Room Air Room Air 06/18/24 17:15 06/18/24 19:00 06/18/24 19:25 Temperature 97.3 F L Temperature Source Pulse Rate 70 66 68 Respiratory Rate 24 H 18 19 H Respiratory Effort Respiratory Pattern Blood Pressure 84/54 L 90/57 L 90/57 L Blood Pressure Mean 64 68 68 Pulse Ox 96 98 96 Oxygen Delivery Method Room Air Room Air 06/18/24 19:26 Temperature 97.3 F L Temperature Source Temporal Pulse Rate 66 Respiratory Rate 19 H Respiratory Effort Respiratory Pattern Blood Pressure 90/57 L Blood Pressure Mean 68 Pulse Ox 98 Oxygen Delivery Method Room Air Weight Weight: 122.3 kg Body Mass Index (BMI) 35.5 Physical Exam Const alert and no apparent distress Constitutional Narrative: Elderly male, obese, somewhat fatigued and flushed in the face, making appropriate eye contact and answering most questions appropriately but with some confusing answers, otherwise laying back comfortably in bed, in no acute distress. General Appearance: cooperative and comfortable HEENT normocephalic, head/scalp atraumatic, hearing grossly normal bilaterally and nasal mucous membranes and turbinates normal Eyes PERRL, EOMs intact bilaterally and conjunctivae normal Neck full ROM Chest inspection of chest normal Resp normal respiratory effort, normal air movement, no use of accessory muscles and clear to auscultation bilaterally Cardio regular rate, regular rhythm, no murmurs and peripheral pulses 2+ throughout GI normal to inspection, nondistended, normoactive bowel sounds, soft to palpation, non-tender and non-distended Back/Spine normal ROM Extremity normal to inspection, full ROM and no pedal edema Skin no rashes or lesions noted Neuro moves all extremities and no focal motor deficits Speech: speech normal Results Lab / Micro Data 06/18/24 16:35 06/18/24 16:35 Labs: Laboratory Results - last 24 hr 06/18/24 16:35: WBC 46.3 H*, RBC 4.33 L, Hgb 13.6, Hct 41.8, MCV 96.5 H, MCH 31.4, MCHC 32.5, RDW Std Deviation 47.6 H, RDW Coeff of Andrey 13.5, Plt Count 113 L, MPV 9.8, Immature Gran % (Auto) 0.300, Neut % (Auto) 16.0 L, Lymph % (Auto) 81.8 H, Desha % (Auto) 1.4, Eos % (Auto) 0.2, Baso % (Auto) 0.3, Absolute Neuts (auto) 7.5, Absolute Lymphs (auto) 37.83 H, Nucleated RBC % 0, Differential Comment SCANNED, Diff Path Review March foll, PT 14.1, INR 1.1, APTT 28.3, Sodium 137, Potassium 3.8, Chloride 106, Carbon Dioxide 24.0, Anion Gap 7, BUN 22 H, Creatinine 1.87 H, Estim Creat Clear Calc 43.16, Est GFR (MDRD) Af Amer 45 L, Est GFR (MDRD) Non-Af 37 L, BUN/Creatinine Ratio 11.8, Glucose 190 H, Calcium 9.1, Troponin I High Sens 8, POC Glucose 168 H 06/18/24 16:50: Lactic Acid 1.8 06/18/24 18:30: Urine Color Yellow, Urine Clarity Clear, Urine pH 5.0, Ur Specific [place] 1.010, Urine Protein 15 H, Urine Glucose (UA) Normal, Urine Ketones Negative, Urine Occult Blood 50 H, Urine Nitrite Negative, Urine Bilirubin Negative, Urine Urobilinogen Normal, Ur Leukocyte Esterase 100 H, Urine RBC 0-5 SEEN, Urine WBC 0-5 SEEN, Ur Squamous Epith Cells 0-5 SEEN, Urine Bacteria 0 SEEN, Urine Mucus 0 SEEN Rhythm Strip Rhythm Strip: Sinus Rhythm Rate: 80 Ectopy: None Imaging Radiology Impression Brain CT 06/18/24 16:21 IMPRESSION: Small vessel ischemia. Electronically Signed: Ellie Smith MD at 16:37 EDT Reading Location ID and State: [facility] / [place] Tel , Service support , ADDENDUM: 06/18/24 1644 IMPRESSION: Small vessel ischemia. N.B. : The above Results were Read Back by Ellie Smith MD to Jake Bhardwaj MD, and understanding confirmed on 06/18/2024 16:38:31 (ET). Electronically Signed: Ellie Smith MD at 16:37 EDT Reading Location ID and State: [facility] / [place] Tel , Service support , Head/Neck CTA 06/18/24 16:21 IMPRESSION: Within normal limits CTA of the head and neck. Electronically Signed: Ellie Smith MD at 17:04 EDT , ADDENDUM: 06/18/24 1711 IMPRESSION: Within normal limits CTA of the head and neck. N.B. : The above Results were Read Back by Ellie Smith MD to Jake Bhardwaj MD, and understanding confirmed on 06/18/2024 17:04:34 (ET). Electronically Signed: Ellie Smith MD at 17:04 EDT , Chest X-Ray 06/18/24 17:00 IMPRESSION: Minimal bibasilar atelectasis and/or pneumonia. Electronically Signed: Ellie Smith MD at 17:30 EDT , Assessment & Plan Assessment/Plan (1) Sepsis: (2) Altered mental status: (3) Leukocytosis: (4) KIET (acute kidney injury): (5) Syncope and collapse: PLAN: Plan Patient is an 78-year-old male who presented to [facility] ED on 06/18/2024 after a syncopal episode. 1. Sepsis without shock with unclear source/altered mentation/syncopal episode ? Admit under inpatient status to PCU. Teleneurology consulted. Have concern for meningitis versus encephalitis given patient's acute onset altered mentation, leukocytosis, continued mild hypotension despite IV fluid resuscitation and no other clear source of infection. Met sepsis criteria on admission with hypotension, leukocytosis, KIET and altered mentation. Notably has history of CLL and WBC count is lymphocytic predominant, but WBC is significantly elevated from previous values at end of 2022. Will empirically treat with vancomycin, meropenem (penicillin allergy), and IV acyclovir for now. Contact precautions in place. MRI brain with and without contrast ordered. PT/OT/case management consulted. Speech therapy also consulted for cognitive evaluation. Pending MRI brain results and neurology evaluation, may require LP for further workup. Trend daily CBC. 2. 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 Creatinine 1.87 on admit, baseline 1.3-1.4. Suspect prerenal KIET secondary to sepsis as noted above. Given heavy IV fluid resuscitation in the ED. Monitor daily BMP and urine output. 3. Acute on chronic debility, chronic neck pain s/p cervical fusion and chronic bilateral shoulder osteoarthritis with pain ? PT/OT/case management consulted as above. Patient follows with [facility], saw Dr. Xiao in the office on 06/15. Notably, was alert and oriented at appointment and no recommendation was made about altered mentation. Patient has history of C3-5 cervical fusion procedure done in [place] in 2019. Had cervical spine MRI done on 05/18 that showed mild central canal stenosis at C6-7 disc space, otherwise unremarkable. Reported to Dr. Xiao that after C-spine fusion procedure he had improvement in balance, but about 1 year ago he noticed worsening balance again. Typically uses a cane for support for balance. Has bilateral shoulder osteoarthritis and has had joint injections in the past with some relief. Current plan per Dr. Xiao is for nonoperative management with physical therapy. Continue Tylenol as needed and home tramadol twice daily as needed for pain control. 4. 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 Patient noted by nursing staff to have moderate skin reddening of the chest and flushed face while receiving vancomycin. Patient reported mild discomfort but no pruritus. Vancomycin effusion was paused and patient was given doses of IV Benadryl, IV Pepcid and IV Solu-Medrol. Planning to give morning dose of vancomycin around 8 AM and will monitor for reaction again at that time. Chronic medical conditions: ? Obesity: BMI 34 on admit. Complicates hospital course, care and prognosis. ? History of CAD with CABG and stenting, hypertension, hyperlipidemia: Continue home aspirin, Plavix and statin. Holding home lisinopril?hydrochlorothiazide and nitrate for now. ? GERD: Continue home PPI. ? BPH with obstructive symptoms: Continue home Flomax. ? History of CLL DVT prophylaxis: Lovenox CODE STATUS: Full code, unverified Expected disposition: TBD Total clinical time spent by myself addressing the patient's medical issues, reviewing all the data, and collaborating with patient's care team: 75 minutes. Charges/Coding Visit Charges Inpatient E&M: 13205 Init Hosp L3
--- NOTE | 2024-06-18 19:50 | ECHOCS_ITS ---
Reason For Study: TIA/CVA Procedure This was a 2D Doppler, Color Flow transthoracic echocardiogram. The study was technically difficult. Contrast injection was performed. Exam performed portable in patient room. Left Ventricle Normal LV size. The estimated ejection fraction is 60 %. No evidence for diastolic dysfunction. No regional wall motion abnormalities noted. Right Ventricle Normal RV size. Normal systolic function. Atria The left and right atria are normal. No doppler evidence for ASD. Mitral Valve There is no mitral valve stenosis. Trivial mitral valve insufficiency. Tricuspid Valve There is no tricuspid stenosis. Unable to estimate RV systolic pressure due to insufficient tricuspid regurgitant envelope. Trivial tricuspid valve insufficiency. Aortic Valve Trisinus/trileaflet aortic valve. Aortic sclerosis, no stenosis. There is no aortic stenosis. No aortic valve insufficiency. Pulmonic Valve There is no pulmonic valvular stenosis. Trivial pulmonic valve insufficiency. Great Vessels Mildly dilated ascending aorta. Pericardium/Pleural No pericardial effusion. Medication Diluted definity 3.5ml given slow IV push to enhance endocardial definition. Performed a rapid injection of agitated mix of 9 cc saline and 1cc air to assess for atrial septal defect. MMode/2D Measurements & Calculations LVIDd: 5.1 cm IVSd: 1.1 cm LVOT diam: 2.1 cm LVIDs: 3.0 cm LVPWd: 1.3 cm RVDd: 4.2 cm FS: 41.1 % LVOT area: 3.4 cm2 Ao root diam: 4.2 cm LAV(MOD-bp): 62.9 ml LVAd ap4: 28.0 cm2 LAV(MOD-bp) Indexed: 26.0 ml/m2 LVLd ap4: 8.7 cm LAV(MOD-sp2): 54.0 ml EDV(MOD-sp4): 74.3 ml LAV(MOD-sp4): 62.7 ml EDV(sp4-el): 76.3 ml LVAs ap4: 17.6 cm2 LVLs ap4: 7.7 cm ESV(MOD-sp4): 34.0 ml ESV(sp4-el): 34.5 ml EF(MOD-sp4): 54.2 % EF(sp4-el): 54.9 % LVAd ap2: 32.4 cm2 SV(MOD-sp4): 40.3 ml SV(MOD-sp2): 57.9 ml LVLd ap2: 8.9 cm EDV(MOD-sp2): 96.0 ml EDV(sp2-el): 99.7 ml LVAs ap2: 18.5 cm2 LVLs ap2: 7.9 cm ESV(MOD-sp2): 38.1 ml ESV(sp2-el): 36.9 ml EF(MOD-sp2): 60.3 % SV(sp4-el): 41.9 ml LA dimension(2D): 4.4 cm LA A4 area: 22.2 cm2 RA A4 area: 16.1 cm2 TAPSE: 1.8 cm Time Measurements MV dec time: 0.28 sec Doppler Measurements & Calculations MV E max tacos: 66.6 cm/sec Lat Peak E' Tacos: 15.7 cm/sec Med Peak E' Tacos: 13.1 cm/sec MV A max tacos: 82.9 cm/sec E/E' lat: 4.3 E/E' med: 5.1 MV E/A: 0.80 Ao V2 max: 121.0 cm/sec LV V1 max: 88.2 cm/sec MV dec slope: 234.9 cm/sec2 Ao max P.9 mmHg LV V1 max P.1 mmHg Ao V2 mean: 90.7 cm/sec LV V1 mean P.8 mmHg Ao mean P.5 mmHg LV V1 mean: 63.8 cm/sec Ao V2 VTI: 26.7 cm LV V1 VTI: 18.2 cm AV (velocity ratio): 0.68 AYO(I,D): 2.3 cm2 AYO(V,D): 2.5 cm2 SV(LVOT): 62.2 ml PA V2 max: 90.7 cm/sec TR max tacos: 215.9 cm/sec PA max PG (full): 1.8 mmHg TR max P.7 mmHg ECHO/Echo Complete W/ Contrast Interpretation Summary The estimated ejection fraction is 60 %. No evidence for diastolic dysfunction. Trivial mitral valve insufficiency. Mildly dilated ascending aorta. Ordering Physician: Mosteller, Michael Referring Physician: Opal Javier M.D. Performed By: Shantal Burris RDCS
[2024-06-18] MEDS: Vancomycin HCl 2,000 MG in 0.9% Normal Saline (500mL Bag) 500 ML 250 MG IV (20:07)
[2024-06-18 20:31] LABS: Hemoglobin A1c 5.6 % (3.8-5.6)
--- NOTE | 2024-06-18 20:55 | PCM.RX.CS ---
Consult Antibiotic Management Pharmacy has been consulted to manage selected antibiotic: Vancomycin Type of Intervention Type of Consult: New start Labs Labs: Sodium 137 mmol/L (136-145) 06/18/24 16:35 Potassium 3.8 mmol/L (3.5-5.1) 06/18/24 16:35 Chloride 106 mmol/L (98-107) 06/18/24 16:35 Carbon Dioxide 24.0 mmol/L (21.0-32.0) 06/18/24 16:35 Anion Gap 7 (5-15) 06/18/24 16:35 BUN 22 mg/dL (7-18) H 06/18/24 16:35 Creatinine 1.87 mg/dL (0.70-1.30) H 06/18/24 16:35 Est GFR (MDRD) Af Amer 45 mL/min (>60) L 06/18/24 16:35 Est GFR (MDRD) Non-Af 37 mL/min (>60) L 06/18/24 16:35 BUN/Creatinine Ratio 11.8 RATIO (10-20) 06/18/24 16:35 Glucose 190 mg/dL (74-106) H 06/18/24 16:35 Pharmacy Plan for Drug Dosing Pharmacy Plan for Drug Dosing: NEW START IV VANCOMYCIN Consulting Physician: Sherri Indication: sepsis? Goal Trough: 15-20 mg/dL SrCr: 1.87 mg/dL CrCl: 43 mL/min Comments: 2000mg loading dose given @ 2006 Vancomycin Dose: Will start 1000mg Q12 (06/19 @ 0800) and get a trough prior to 4th total dose per policy. Pending Level: 06/20/24 @ 0730 Pharmacy Service will continue to monitor and adjust dosing as required.
[2024-06-18] MEDS: DiphenhydrAMINE 50 MG/ML Syringe 25 MG IV (21:19)
[2024-06-18] MEDS: Atorvastatin Calcium 40 MG Tablet PO (21:19)
[2024-06-18] MEDS: Famotidine 200 MG/20 ML MDV 20 MG in 0.9% Normal Saline (Pres. free 8 ML 300 MG IV (21:20)
[2024-06-18] MEDS: Acyclovir 800 MG in Dextrose 5%-Water (250mL Bag) 250 ML 266 MG IV (21:20)
[2024-06-19] VITALS (9 sets, daily range): BP systolic 127–165; BP diastolic 72–91; PULSE 56–131; RESP 16–18; TEMP 36–36.9; O2SAT 95–98; BMI 34.7
[2024-06-19 07:57] LABS: Absolute Lymphocyte Count 24.94 X10^3/uL (0.83-4.51); Absolute Neutrophil Count 5.3 X10^3/uL (2.0-7.7); Basophil# 0.04 X10^3/uL; Basophil% 0.1 % (0-1); Hematocrit 37.1 % (40-54); Hemoglobin 12.3 g/dL (13.0-16.5); Lymphocyte # 24.94 X10^3/ul (0.83-4.51); Lymphocyte % 81.8 % (19-41); Mean Corp Hgb Conc 33.2 g/dL (32-36); Mean Corpuscular Hgb 32.4 pg (27.0-32.0); Mean Corpuscular Volume 97.6 fL (80-94); Mean Platelet Vol. 9.9 fl (6.2-12.0); Monocyte# 0.13 X10^3/uL; Monocyte% 0.4 % (0-10); NRBC Flagged by Analyzer 0 % (0-5); Neutrophil # 5.33 X10^3/uL (2.7-7.7); Neutrophil % 17.5 % (47-70); POSITIVE COUNT YES; POSITIVE DIFFERENTIAL YES; Platelet Count 78 K/mm3 (150-450); RBC Distribution Width CV 13.6 % (11.6-14.6); RBC Distribution Width SD 48.6 fl (35.1-43.9); White Blood Count 30.5 K/mm3 (4.4-11.0)
[2024-06-19 08:02] LABS: Differential Indicated SCAN CRITERIA MET
[2024-06-19 08:26] LABS: Anion Gap 7 (5-15); BUN 18 mg/dL (7-18); BUN/Creat Ratio 13.2 RATIO (10-20); Calcium,Total 8.2 mg/dL (8.5-10.1); Chloride 111 mmol/L (98-107); Cholesterol 178 mg/dL (200); Creatinine, Serum 1.36 mg/dL (0.70-1.30); EST Glomerular Filtration Rate 54 mL/min (>60); Est Glom Filt Rate - Afr Amer 65 mL/min (>60); Estimated Creatinine Clearance 58.69 ml/min; Glucose 145 mg/dL (74-106); High Density Lipoprotein 41 mg/dL; Potassium 4.4 mmol/L (3.5-5.1); Sodium Level 140 mmol/L (136-145); Triglycerides 45 mg/dL; Very Low Density Lipoprotein 9 mg/dL (5-40)
[2024-06-19] MEDS: Clopidogrel Bisulfate 75 MG Tablet PO (10:22)
[2024-06-19] MEDS: Multivitamins,Therapeutic Tablet 1 TABLET PO (10:22)
[2024-06-19] MEDS: Aspirin 81 MG TAB.CHEW PO (10:22)
[2024-06-19] MEDS: Pantoprazole Sodium 40 MG Tablet PO (10:23)
--- NOTE | 2024-06-19 10:27 | CASEMGMT ---
RENETTA GARZA Assessment Face to Face with patient for initial transition planning/care coordination assessment. RENETTA GARZA introduced self and role at [facility], pt voices understanding. Pt is A&Ox4 and is resting comfortably in bed and is calm. Care providers, pharmacy, and demographics verified. Admitting dx: CVA R/O, Concern for sepsis PCP: Opal Javier Specialists: Zelda (PM) [facility] Prescription Benefit: Yes LNOK: Morena Velazquez () Living Arrangements: Pt lives alone in a two story home with one step to enter ADLs/IADLs: Pt states that he is normally independent but states that he is coming to the realization that he may need more help moving forward. Pt states that his friend comes to his home once per week to assist with tasks such as laundry. Transportation: Pt drives but states I shouldn't be. Pt friend (Angelica) provides the pt with transportation as needed DME: Héctor, Shower chair, GB, [facility] HHC/SNF: Denies history. Reports history at for OP Tx Pt?s goal: Return to PLOF Plan: TBD. Anticipate SNF. 6-click is 12. PT/OT is recommending additional therapy. Pt states that he may be interested in going to a SNF for further rehab to help him return to PLOF. SW updated and to provide list and f/u with the pt at this time. Daysi Araujo RN, CM
--- NOTE | 2024-06-19 10:50 | MRI_ITS ---
EXAM: MR HEAD WITHOUT AND WITH INTRAVENOUS CONTRAST CLINICAL INDICATION: eval for CVA and/or infectious etiology TECHNIQUE: Multiplanar and multisequence MR images of the brain were obtained without and with intravenous contrast. CONTRAST: 25 mL of IV Clariscan. COMPARISON: MRI brain without contrast 02/20/2016. FINDINGS: BRAIN AND EXTRA-AXIAL SPACES: No diffusion restriction to suspect acute or subacute ischemic infarct. No remote cortical-based ischemic infarct. Increased size and volume of T2 FLAIR hyperintensity foci in the white matter of both cerebral hemispheres due to chronic ischemic changes. Following IV contrast administration, there are no abnormally enhancing lesions intra-axially and extra-axially. No intra- or extra-axial hemorrhage. No intracranial mass or mass effect. Posterior fossa structures are unremarkable. Basal cisterns are patent. SELLA: Unremarkable. Normal sella turcica, pituitary gland, infundibular stalk, optic chiasm and hypothalamus. AUDITORY SYSTEM: Unremarkable. The internal auditory canals are patent. BONES/JOINTS: Unremarkable. No discrete lytic or blastic abnormalities. SINUSES: Unremarkable as visualized. Clear. MASTOID AIR CELLS: Unremarkable as visualized. Clear. ORBITS: Unremarkable as visualized. Both globes, extraocular muscles, optic nerves and retrobulbar fat appear unremarkable. VASCULATURE: Unremarkable as visualized. Normal flow voids in the major intracranial circulation. MRI/Brain W/WO Contrast IMPRESSION: 1. No MRI evidence of acute or subacute ischemic infarct or remote cortical-based ischemic infarct. 2. Progression of chronic white matter ischemic changes in both cerebral hemispheres when compared to 02/20/2016. 3. No abnormally enhancing lesions intra-axially and extra-axially. Electronically Signed: Zechariah Oneal MD at 11:53 EDT ,
--- NOTE | 2024-06-19 11:36 | CASEMGMT ---
Social Work senior living facility created in [facility] of facilities in network w/pt's insurance, in pt's preferred geographic area and complete with quality and resource use data, in event snf facility placement needed, to provide to pt. JOSE R James
--- NOTE | 2024-06-19 11:50 | PN_ITS ---
Subjective Subjective Patient seen and examined. He is much more alert today. He was admitted after an episode of confusion and syncope while at the [facility]. On admission WBC was found to be markedly elevated. He is alert and oriented x 3 today. He denies any dizziness or lightheadedness, palpitations, fever or chills, nausea or vomiting. Review of systems otherwise negative. WBC is down to 30.5 today. Objective Data Objective Data Vital Signs: Vital Signs Temp Pulse Resp BP Pulse Ox O2 Del Method 97.9 F 73 16 137/79 H 95 Room Air 06/19/24 10:00 06/19/24 10:00 06/19/24 10:00 06/19/24 10:00 06/19/24 10:00 06/19/24 10:00 Oxygen Delivery Method Room Air Weight: 263 lb 10.766 oz Body Mass Index (BMI) 34.7 Intake & Output: Intake and Output for Last 24 Hours 06/17/24 06/18/24 06/19/24 23:59 23:59 23:59 Intake Total 1936 / 2136 1200 / 1200 Output Total 300 / 300 Balance 1936 / 2136 900 / 900 Lab / Micro Data 06/19/24 06:15 06/19/24 06:20 Labs: Laboratory Results - last 24 hr 06/18/24 16:35: WBC 46.3 H*, RBC 4.33 L, Hgb 13.6, Hct 41.8, MCV 96.5 H, MCH 31.4, MCHC 32.5, RDW Std Deviation 47.6 H, RDW Coeff of Andrey 13.5, Plt Count 113 L, MPV 9.8, Immature Gran % (Auto) 0.300, Neut % (Auto) 16.0 L, Lymph % (Auto) 81.8 H, [place] % (Auto) 1.4, Eos % (Auto) 0.2, Baso % (Auto) 0.3, Absolute Neuts (auto) 7.5, Absolute Lymphs (auto) 37.83 H, Nucleated RBC % 0, Differential Comment SCANNED, Diff Path Review March foll, PT 14.1, INR 1.1, APTT 28.3, Sodium 137, Potassium 3.8, Chloride 106, Carbon Dioxide 24.0, Anion Gap 7, BUN 22 H, C reatinine 1.87 H, Estim Creat Clear Calc 43.16, Est GFR (MDRD) Af Amer 45 L, Est GFR (MDRD) Non-Af 37 L, BUN/Creatinine Ratio 11.8, Glucose 190 H, Hemoglobin A1c 5.6, Calcium 9.1, Troponin I High Sens 8, TSH 3.40, POC Glucose 168 H 06/18/24 16:50: Lactic Acid 1.8 06/18/24 18:30: Urine Color Yellow, Urine Clarity Clear, Urine pH 5.0, Ur Specific [place] 1.010, Urine Protein 15 H, Urine Glucose (UA) Normal, Urine Ketones Negative, Urine Occult Blood 50 H, Urine Nitrite Negative, Urine Bilirubin Negative, Urine Urobilinogen Normal, Ur Leukocyte Esterase 100 H, Urine RBC 0-5 SEEN, Urine WBC 0-5 SEEN, Ur Squamous Epith Cells 0-5 SEEN, Urine Bacteria 0 SEEN, Urine Mucus 0 SEEN 06/19/24 06:15: WBC 30.5 H*, RBC 3.80 L, Hgb 12.3 L, Hct 37.1 L, MCV 97.6 H, MCH 32.4 H, MCHC 33.2, RDW Std Deviation 48.6 H, RDW Coeff of Andrey 13.6, Plt Count 78 L, MPV 9.9, Immature Gran % (Auto) 0.200, Neut % (Auto) 17.5 L, Lymph % (Auto) 81.8 H, [place] % (Auto) 0.4, Eos % (Auto) 0.0, Baso % (Auto) 0.1, Absolute Neuts (auto) 5.3, Absolute Lymphs (auto) 24.94 H, Nucleated RBC % 0, Differential Comment , Diff Path Review March06/19/24 06:20: Sodium 140, Potassium 4.4, Chloride 111 H, Carbon Dioxide 22.0, Anion Gap 7, BUN 18, Creatinine 1.36 H, Estim Creat Clear Calc 58.69, Est GFR (MDRD) Af Amer 65, Est GFR (MDRD) Non-Af 54 L, BUN/Creatinine Ratio 13.2, G lucose 145 H, Calcium 8.2 L, Triglycerides 45, Cholesterol 178, LDL Cholesterol 128, VLDL Cholesterol 9, HDL Cholesterol 41 Radiography Diagnostic Testing: Radiology Impression Brain CT 06/18/24 16:21 IMPRESSION: Small vessel ischemia. Electronically Signed: Ellie Smith MD at 16:37 EDT , ADDENDUM: 06/18/24 1644 IMPRESSION: Small vessel ischemia. N.B. : The above Results were Read Back by Ellie Smith MD to Jake Bhardwaj MD, and understanding confirmed on 06/18/2024 16:38:31 (ET). Electronically Signed: Ellie Smith MD at 16:37 EDT , Head/Neck CTA 06/18/24 16:21 IMPRESSION: Within normal limits CTA of the head and neck. Electronically Signed: Ellie Smith MD at 17:04 EDT , ADDENDUM: 06/18/24 1711 IMPRESSION: Within normal limits CTA of the head and neck. N.B. : The above Results were Read Back by Ellie Smith MD to Jake Bhardwaj MD, and understanding confirmed on 06/18/2024 17:04:34 (ET). Electronically Signed: Ellie Smith MD at 17:04 EDT , Chest X-Ray 06/18/24 17:00 IMPRESSION: Minimal bibasilar atelectasis and/or pneumonia. Electronically Signed: Ellie Smith MD at 17:30 EDT , Rhythm Strip Rhythm Strip: Sinus Rhythm Rate: 80 Ectopy: None Physical Exam Const alert, oriented x3 and no apparent distress General Appearance: cooperative HEENT normocephalic, head/scalp atraumatic, moist oral mucous membranes and oropharynx normal Eyes PERRL and EOMs intact bilaterally Neck no lymphadenopathy, supple and no JVD Lymph Lymphatic: no lymphadenopathy noted and no lymphedema noted Resp Resp Narrative: mildly diminished breath sounds bibasally, no wheezes or crackles. On room air. Cardio regular rate, regular rhythm, S1 normal heart sound, S2 normal heart sound and no murmurs GI normal to inspection, nondistended, normoactive bowel sounds, soft to palpation, non-tender and non-distended Extremity normal capillary refill, no clubbing, cyanosis or edema and no calf tenderness General Extremity: no tenderness to palpation of joints or extremities Skin General Skin Exam: no breakdown Neuro CN's II-XII intact bilaterally, no focal motor deficits, no sensory deficits noted and deep tendon reflexes 2+ bilaterally Motor Exam: strength 5/5 throughout and general weakness Psych thought process normal, cooperative and affect normal Appearance: appropriate Assessment & Plan Assessment/Plan (1) Altered mental status: (2) Sepsis: PLAN: Plan #Acute encephalopathy * Etiology is not clear. Had a intact mental status and syncope whilst at the [facility]. * Patient now alert and oriented. CT of the brain was negative. * [facility] [place] consulted and was concerned about meningitis versus encephalitis in light of patient's altered mental status and leukocytosis. * Blood cultures pending WBC has trended down to 30 from 46 yesterday. * Currently on vancomycin and meropenem. However patient developed a diffuse erythematous rash overnight after he received the vancomycin so there is concern for red man syndrome. Vancomycin therefore discontinued. Also on IV acyclovir. * Awaiting MRI of the brain with and without contrast. * Neurology on board. Per neurology, depending on MRI results, may require LP. * Of note current * Kernig's and Brudzinski's were negative. Patient is afebrile and has no neck pain. He does have a history of CLL. * Consult ID. * will order linezolid as alternative to vancomycin * #Probable red man syndrome: Will DC vancomycin as rash is quite diffuse. #Elevated creatinine: Creatinine was 1.87 on admission with a baseline of around 1.3. Trended down to 1.36 with hydration. Will monitor and expect that we will continue to trend down with fluids. #History of CAD s/p CABG: On aspirin Plavix and statin #Hypertension: On lisinopril hydrochlorothiazide. IV hydralazine as needed #GERD: On PPI #BPH with obstructive symptoms: On Flomax #History of CLL: * His WBC was markedly elevated but has trended down. * However it is lymphocyte predominant. * Platelets also down to 78. * Will monitor and if this persists, will need to consult hematology. #Thrombocytopenia: Platelets are 78. He has chronic thrombocytopenia. Will monitor. Due to prophylaxis: SCDs. Charges/Coding Visit Charges Inpatient E&M: 99497 Subs Hosp L3
--- NOTE | 2024-06-19 13:14 | STROKE.CONS ---
Assessment and Plan: Stroke Assessment/Plan SILVIANO GONZALEZ is a 78 M with a history of HTN, DM, who presents for evaluation of AMS and visual loss. Was a stroke alert. Neurological examination shows NIH 0. Feels slightly off, but almost back to baseline. Neuroimaging shows no acute infarct on MRI brain. CTA wnl. Treat for UTI/Infection. COnitue current meds. Does not need ASA and Plavix from stroke standpoint unless needed for cardiac reason or is home med. Memory loss x 4 mos - refer to [facility] for MCI/dementia workup. HPI Consult Data Date of Consult: 06/19/24 HPI Narrative HPI Narrative: SILVIANO GONZALEZ, is a 78 M who presents [facility] Medical History Primary osteoarthritis, left shoulder Primary osteoarthritis, right shoulder Left shoulder pain Right shoulder pain Wears partial dentures Wears glasses Depression Alcohol use Ambulates with cane Arthritis Prostate disease Anemia Excessive bleeding Easy bruising Injury of back Back pain History of leukemia Injury of head and neck Gastric reflux Former smoker Shortness of breath on exertion History of pain when walking History of edema History of echocardiogram Normal stress echocardiogram History of stress test Cardiology follow-up encounter History of heart attack Thrombocytopenia Old inferior wall myocardial infarction (1990) Abdominal aortic aneurysm (AAA) Atherosclerotic heart disease of [place] coronary artery without angina pectoris Atherosclerosis of coronary artery bypass graft without angina pectoris Chronic lymphocytic leukemia Cervical stenosis of spinal canal (12/10/19) Incontinence Obesity Erectile dysfunction Peptic ulcer Carotid artery stenosis without cerebral infarction Hyperlipidemia Essential hypertension Home Medications ?Medication ?Instructions ?Recorded ?Last Taken ?Type aspirin 81 mg chewable tablet 81 mg PO DAILY #90 tabs 12/02/22 Unknown Rx pantoprazole 40 mg tablet,delayed 40 mg PO PRN PRN GERD #90 tabs 12/02/22 Unknown Rx release (Protonix) tamsulosin 0.4 mg capsule 0.4 mg PO BID #180 caps 12/02/22 Unknown Rx acyclovir 400 mg tablet 400 mg PO DAILY 09/03/23 Unknown History multivitamin 1 tab PO DAILY 09/03/23 Unknown History rosuvastatin 5 mg tablet (Crestor) 5 mg PO DAILY #60 tabs 09/04/23 Unknown Rx isosorbide mononitrate 60 mg 60 mg PO DAILY #90 tabs 12/04/23 Unknown Rx tablet,extended release 24 hr lisinopril 20 1 tab PO DAILY Pt lost bottle: 12/29/23 Unknown Rx mg-hydrochlorothiazide 12.5 mg please charge fischer tucker #90 tabs tablet clopidogrel 75 mg tablet (Plavix) 75 mg PO DAILY #90 tabs 02/06/24 Unknown Rx celecoxib 100 mg capsule 100 mg PO BID PRN pain #30 caps 03/19/24 Unknown Rx tramadol 50 mg tablet 50 mg PO BID PRN pain #60 tabs 05/31/24 Unknown Rx Allergy/AdvReac Type Severity Reaction Status Date / Time Penicillins Allergy Hives Verified 06/15/24 12:25 carvedilol (From Coreg) AdvReac Intermediate Unknown Verified 06/15/24 12:25 doxycycline AdvReac Intermediate GI Verified 06/15/24 12:25 intolerance Family History (Updated 06/18/24 @ 18:[address] Vibha Carrera MD) Mother Cancer Father Diabetes Heart disease Hypertension Sister Diabetes Surgical History Hx of cystoscopy (~2023) History of left heart catheterization (05/17/21) History of coronary angioplasty (1990) H/O coronary artery bypass surgery (1991) History of coronary artery stent placement (05/25/21) History of cervical spinal surgery (12/20/19) History of endovascular stent graft for abdominal aortic aneurysm (AAA) (11/07/16) Social History (Updated 06/18/24 @ 18:[address] Vibha Carrera MD) household members: none Smoking Status: Never smoker how long ago did patient quit smoking: Quit 05/2007, smoked 1 ppd until quit. alcohol intake: current alcohol intake frequency: holidays/special occasions only substance use type: does not use caffeine: Yes Type: coffee Number of servings: 2 Vital Signs Vital Signs Vital Signs: 06/18/24 16:10 06/18/24 16:21 06/18/24 16:21 Temperature 97.6 F L Temperature Source Oral Pulse Rate 81 62 Pulse Strength Respiratory Rate 13 18 Respiratory Effort Respiratory Depth Respiratory Pattern Blood Pressure 67/48 L 70/55 L Blood Pressure Mean 54 60 Blood Pressure Source Blood Pressure Position Blood Pressure Location Pulse Ox 92 96 Oxygen Delivery Method Room Air Room Air Room Air 06/18/24 16:41 06/18/24 16:51 06/18/24 17:00 Temperature Temperature Source Pulse Rate 74 Pulse Strength Respiratory Rate 17 Respiratory Effort Normal Respiratory Depth Respiratory Pattern Normal Blood Pressure 82/56 L Blood Pressure Mean 64 Blood Pressure Source Blood Pressure Position Blood Pressure Location Pulse Ox 97 Oxygen Delivery Method Room Air Room Air 06/18/24 17:15 06/18/24 19:00 06/18/24 19:25 Temperature 97.3 F L Temperature Source Pulse Rate 70 66 68 Pulse Strength Respiratory Rate 24 H 18 19 H Respiratory Effort Respiratory Depth Respiratory Pattern Blood Pressure 84/54 L 90/57 L 90/57 L Blood Pressure Mean 64 68 68 Blood Pressure Source Blood Pressure Position Blood Pressure Location Pulse Ox 96 98 96 Oxygen Delivery Method Room Air Room Air 06/18/24 19:26 06/18/24 21:05 06/18/24 22:00 Temperature 97.3 F L 98.6 F Temperature Source Temporal Oral Pulse Rate 66 73 Pulse Strength Normal (2+) Respiratory Rate 19 H 18 Respiratory Effort Respiratory Depth Respiratory Pattern Blood Pressure 90/57 L 127/76 H Blood Pressure Mean 68 93 Blood Pressure Source Monitor Blood Pressure Position Semi-Fowlers Blood Pressure Location Left Arm Pulse Ox 98 96 Oxygen Delivery Method Room Air Room Air 06/18/24 22:00 06/19/24 01:00 06/19/24 01:15 Temperature 98.5 F 97.8 F Temperature Source Temporal Temporal Pulse Rate 56 L Pulse Strength Respiratory Rate 18 Respiratory Effort Normal Non-Labored Respiratory Depth Normal Respiratory Pattern Normal Blood Pressure 130/75 H Blood Pressure Mean 93 Blood Pressure Source Monitor Blood Pressure Position Semi-Fowlers Blood Pressure Location Left Arm Pulse Ox 95 Oxygen Delivery Method Room Air Room Air 06/19/24 02:28 06/19/24 06:00 06/19/24 06:51 Temperature 96.8 F L Temperature Source Temporal Pulse Rate 72 Pulse Strength Respiratory Rate 18 Respiratory Effort Normal Non-Labored Respiratory Depth Normal Respiratory Pattern Normal Blood Pressure 127/72 H Blood Pressure Mean 90 Blood Pressure Source Monitor Blood Pressure Position Semi-Fowlers Blood Pressure Location Left Arm Pulse Ox 98 95 Oxygen Delivery Method Room Air Room Air Room Air 06/19/24 07:00 06/19/24 08:00 06/19/24 08:24 Temperature Temperature Source Pulse Rate 69 Pulse Strength Normal (2+) Respiratory Rate Respiratory Effort Normal Non-Labored Respiratory Depth Normal Respiratory Pattern Normal Blood Pressure Blood Pressure Mean Blood Pressure Source Blood Pressure Position Blood Pressure Location Pulse Ox Oxygen Delivery Method Room Air 06/19/24 10:00 Temperature 97.9 F Temperature Source Temporal Pulse Rate 73 Pulse Strength Respiratory Rate 16 Respiratory Effort Respiratory Depth Respiratory Pattern Blood Pressure 137/79 H Blood Pressure Mean 98 Blood Pressure Source Monitor Blood Pressure Position Sitting Blood Pressure Location Left Arm Pulse Ox 95 Oxygen Delivery Method Room Air Weight Weight: 119.6 kg Body Mass Index (BMI) 34.7 EEG Results Procedure Details EEG Procedure Details: SILVIANO GONZALEZ is a 78 year old M with a past medical history of , who presents for evaluation of Electroencephalogram on DATE at TIME NIHSS NIHSS Nursing Documentation NIHSS Nursing Documentation: NIH Stroke Scale Start: 06/18/24 16:18 Freq: Status: Discharge Protocol: Activity Type Activity Date Activity User E-sign Co-sign Detail Recorded Client Recorded Date Recorded By Document 06/18/24 16:39 SR [id number] 06/18/24 16:48 SR 06/18/24 16:39 NIH Stroke Scale [NIHSS] A score of 0 is normal or asymptomatic . Total possible score is 42. Inpatient: RN or Physician to activate a stroke alert for onset of new stroke symptoms or with NIHSS increase >/= 3 points. Following change in neurological status, NIHSS will be performed per physician order or more frequently PRN. -1a. Level of Consciousness Alert; keenly responsive -1b. LOC Questions Answers BOTH questions correctly. -2. Best Gaze Normal -3. Visual No visual loss -4. Facial Palsy Normal symmetrical movements -5a. Left Arm No drift; arm holds 90 (or 45 ) degrees for full 10 seconds -5b. Right Arm No drift; arm holds 90 (or 45 ) degrees for full 10 seconds -6a. Left Leg No drift; leg holds 30-degree position for full 5 seconds -6b. Right Leg No drift; leg holds 30-degree position for full 5 seconds -7. Limb Ataxia Absent -8. Sensory Normal; no sensory loss -9. Best Language No aphasia; normal -10. Dysarthria Normal -11. Extinction and Inattention No abnormality -Total 0 Query Text:A score of 0 is normal or asymptomatic. Total possible score is 42 . ED: Notify Physician for NIHSS increase by > / = 3 points. Inpatient: RN or Physician to activate a stroke alert for NIHSS increase of > / = 3 points. NIHSS: Ischemic Stroke/TIA Start: 06/18/24 20:36 Text: For PCU Patients: NIH and Neuro Check every 4 Status: Active hours, PRN and with change in RN caregiver. Freq: [id number] Protocol: Activity Type Activity Date Activity User E-sign Co-sign Detail Recorded Client Recorded Date Recorded By Document 06/19/24 06:00 ADR desktop 06/19/24 07:40 ADR 06/19/24 06:00 -1a. Level of Consciousness Alert; keenly responsive -1b. LOC Questions Answers BOTH questions correctly. -1c. LOC Commands Performs both tasks correctly . -2. Best Gaze Normal -3. Visual No visual loss -4. Facial Palsy Normal symmetrical movements -5a. Left Arm No drift; arm holds 90 (or 45 ) degrees for full 10 seconds -5b. Right Arm No drift; arm holds 90 (or 45 ) degrees for full 10 seconds -6a. Left Leg No drift; leg holds 30-degree position for full 5 seconds -6b. Right Leg No drift; leg holds 30-degree position for full 5 seconds -7. Limb Ataxia Absent -8. Sensory Normal; no sensory loss -9. Best Language No aphasia; normal -10. Dysarthria Normal -11. Extinction and Inattention No abnormality -Total 0 Query Text:A score of 0 is normal or asymptomatic. Total possible score is 42 . ED: Notify Physician for NIHSS increase by > / = 3 points. Inpatient: RN or Physician to activate a stroke alert for NIHSS increase of > / = 3 points. Coma Scale [Assess] -Eye Opening Spontaneous -Motor Obeys Commands -Verbal Confused [Total] -Coma Scale Total 14 Lab / Micro Data 06/19/24 06:15 06/19/24 06:20 Labs: Laboratory Results - last 24 hr 06/18/24 16:35: WBC 46.3 H*, RBC 4.33 L, Hgb 13.6, Hct 41.8, MCV 96.5 H, MCH 31.4, MCHC 32.5, RDW Std Deviation 47.6 H, RDW Coeff of Andrey 13.5, Plt Count 113 L, MPV 9.8, Immature Gran % (Auto) 0.300, Neut % (Auto) 16.0 L, Lymph % (Auto) 81.8 H, [place] % (Auto) 1.4, Eos % (Auto) 0.2, Baso % (Auto) 0.3, Absolute Neuts (auto) 7.5, Absolute Lymphs (auto) 37.83 H, Nucleated RBC % 0, Differential Comment SCANNED, Diff Path Review March, PT 14.1, INR 1.1, APTT 28.3, Sodium 137, Potassium 3.8, Chloride 106, Carbon Dioxide 24.0, Anion Gap 7, BUN 22 H, Creatinine 1.87 H, Estim Creat Clear Calc 43.16, Est GFR (MDRD) Af Amer 45 L, Est GFR (MDRD) Non-Af 37 L, BUN/Creatinine Ratio 11.8, Glucose 190 H, Hemoglobin A1c 5.6, Calcium 9.1, Troponin I High Sens 8, TSH 3.40, POC Glucose 168 H 06/18/24 16:50: Lactic Acid 1.8 06/18/24 18:30: Urine Color Yellow, Urine Clarity Clear, Urine pH 5.0, Ur Specific [place] 1.010, Urine Protein 15 H, Urine Glucose (UA) Normal, Urine Ketones Negative, Urine Occult Blood 50 H, Urine Nitrite Negative, Urine Bilirubin Negative, Urine Urobilinogen Normal, Ur Leukocyte Esterase 100 H, Urine RBC 0-5 SEEN, Urine WBC 0-5 SEEN, Ur Squamous Epith Cells 0-5 SEEN, Urine Bacteria 0 SEEN, Urine Mucus 0 SEEN 06/19/24 06:15: WBC 30.5 H*, RBC 3.80 L, Hgb 12.3 L, Hct 37.1 L, MCV 97.6 H, MCH 32.4 H, MCHC 33.2, RDW Std Deviation 48.6 H, RDW Coeff of Andrey 13.6, Plt Count 78 L, MPV 9.9, Immature Gran % (Auto) 0.200, Neut % (Auto) 17.5 L, Lymph % (Auto) 81.8 H, [place] % (Auto) 0.4, Eos % (Auto) 0.0, Baso % (Auto) 0.1, Absolute Neuts (auto) 5.3, Absolute Lymphs (auto) 24.94 H, Nucleated RBC % 0, Differential Comment , Diff Path Review March johnnie 06/19/24 06:20: Sodium 140, Potassium 4.4, Chloride 111 H, Carbon Dioxide 22.0, Anion Gap 7, BUN 18, Creatinine 1.36 H, Estim Creat Clear Calc 58.69, Est GFR (MDRD) Af Amer 65, Est GFR (MDRD) Non-Af 54 L, BUN/Creatinine Ratio 13.2, Glucose 145 H, Calcium 8.2 L, Triglycerides 45, Cholesterol 178, LDL Cholesterol 128, VLDL Cholesterol 9, HDL Cholesterol 41 Micro: Microbiology 06/18/24 18:30 Urine, Clean Catch Urine Culture - Preliminary Coag Negative Staph Rhythm Strip Rhythm Strip: Sinus Rhythm Rate: 80 Ectopy: None Imaging Radiology Impression Brain CT 06/18/24 16:21 IMPRESSION: Small vessel ischemia. Electronically Signed: Ellie Smith MD at 16:37 EDT , ADDENDUM: 06/18/24 1644 IMPRESSION: Small vessel ischemia. N.B. : The above Results were Read Back by Ellie Smith MD to Jake Bhardwaj MD, and understanding confirmed on 06/18/2024 16:38:31 (ET). Electronically Signed: Ellie Smith MD at 16:37 EDT , Head/Neck CTA 06/18/24 16:21 IMPRESSION: Within normal limits CTA of the head and neck. Electronically Signed: Ellie Smith MD at 17:04 EDT , ADDENDUM: 06/18/24 1711 IMPRESSION: Within normal limits CTA of the head and neck. N.B. : The above Results were Read Back by Ellie Smith MD to Jake Bhardwaj MD, and understanding confirmed on 06/18/2024 17:04:34 (ET). Electronically Signed: Ellie Smith MD at 17:04 EDT , Chest X-Ray 06/18/24 17:00 IMPRESSION: Minimal bibasilar atelectasis and/or pneumonia. Electronically Signed: Ellie Smith MD at 17:30 EDT , Brain MRI 06/19/24 10:50 IMPRESSION: 1. No MRI evidence of acute or subacute ischemic infarct or remote cortical-based ischemic infarct. 2. Progression of chronic white matter ischemic changes in both cerebral hemispheres when compared to 02/20/2016. 3. No abnormally enhancing lesions intra-axially and extra-axially. Electronically Signed: Zechariah Oneal MD at 11:53 EDT , Active Medications Active Medications Active Medications: Current Medications Generic Name Dose Route Start Last Admin Trade Name Freq PRN Reason Stop Dose Admin Acetaminophen 650 mg 06/18/24 20:36 Acetaminophen 325 Mg Tablet PO Q6H PRN PRN Pain 1-10 Or Fever>100.7 Aspirin 81 mg 06/19/24 08:00 06/19/24 10:22 Aspirin 81 Mg Tab.Chew PO 81 mg DAILYCM JACKIE Administration Atorvastatin Calcium 40 mg 06/18/24 22:00 06/18/24 21:19 Atorvastatin Calcium 40 Mg Tablet PO 40 mg QHS JACKIE Administration Clopidogrel Bisulfate 75 mg 06/19/24 10:00 06/19/24 10:22 Clopidogrel Bisulfate 75 Mg Tablet PO 75 mg DAILY JACKIE Administration Enoxaparin Sodium 40 mg 06/19/24 10:00 06/19/24 08:18 Enoxaparin 40 Mg/0.4 Ml Syringe SC Not Given DAILY [facility] Hydralazine HCl 5 mg 06/18/24 20:36 Hydralazine 20 Mg/Ml Vial IV 06/19/24 20:36 Q30M PRN maintain BP parameters with HR <60 Meropenem 2 gm/ Sodium 140 mls @ 97 mls/hr 06/19/24 10:00 Chloride IV Q12 JACKIE Acyclovir Sodium 800 mg/ 266 mls @ 266 mls/hr 06/18/24 20:36 06/18/24 23:34 Dextrose IV Infused Q12 JACKIE Infusion Sodium Chloride 250 mls @ 15 mls/hr 06/18/24 21:01 IV .[id number] PRN Additional IVPB Infusion Sodium Chloride 250 mls @ 15 mls/hr 06/18/24 21:01 IV .[id number] PRN Saline Flush Linezolid 600 mg in 300 mls @ 200 mls/hr 06/19/24 22:00 Zyvox 600mg IV Q12 JACKIE Linezolid 600 mg in 300 mls @ 200 mls/hr 06/19/24 12:30 Zyvox 600mg IV 06/19/24 13:59 X1 ONE Labetalol HCl 20 mg 06/18/24 16:21 Labetalol (Prefilled) 20 Mg/4 Ml IV 06/19/24 16:21 X1 PRN Blood Pressure Melatonin 3 mg 06/18/24 20:36 Melatonin 3 Mg Tablet PO QHS PRN PRN INSOMNIA Multivitamins 1 tablet 06/19/24 08:00 06/19/24 10:22 Multivitamins,Therapeutic Tablet PO 1 tablet DAILYCM JACKIE Administration Ondansetron HCl 4 mg 06/18/24 20:36 Ondansetron 4 Mg/2 Ml Vial IV Q8H PRN PRN NAUSEA/VOMITING Pantoprazole Sodium 40 mg 06/19/24 10:00 06/19/24 10:23 Pantoprazole Sodium 40 Mg Tablet PO 40 mg DAILY JACKIE Administration Sodium Chloride 10 - 40 ml 06/18/24 21:01 0.9% Saline Lock 10 Ml Syringe IV UD PRN SALINE FLUSH Tamsulosin HCl 0.4 mg 06/19/24 17:30 Tamsulosin Hcl 0.4 Mg Capsule PO DAILY@1730 JACKIE Tramadol HCl 50 mg 06/18/24 20:36 Tramadol 50 Mg Tablet PO BID PRN Pain Score 1-10
[2024-06-19] MEDS: Acyclovir 800 MG in Dextrose 5%-Water (250mL Bag) 250 ML 266 MG IV ×2 (13:31→22:07)
[2024-06-19] MEDS: Linezolid 600 MG 600 MG/300 ML BAG 200 MG IV ×2 (13:34→22:07)
--- NOTE | 2024-06-19 13:48 | CASEMGMT ---
Social Work- met with pt who states that he does not want to look at a SNF list at this time. Pt reports that he may go to [place]. Pt states that he is agreeable to looking at SNF list Friday. Pt reports that his HCPOA is Manuel, a friend. Pt does not want Manuel added to his contact list of people to notify. Pt is aware there are no HCPOA papers on chart and encouraged to bring or mail them in. RNCM advised. JOSEF Howard
--- NOTE | 2024-06-19 14:12 | NURSING ---
[facility] not completed d/t patient agitation and attempting to leave facility. notified and meds given.
--- NOTE | 2024-06-19 14:12 | NURSING ---
LOCAL DELIVERY DRIVER called nurse to room d/t pt being agitated and trying to leave the hospital. Security called, attempted to redirect pt to his room. Pt hallucinating and paranoid stating you all are trying to kill me. MD notified, see orders. Pts friend irene contacted and updated on pts status.
[2024-06-19] MEDS: QUEtiapine 25 MG Tablet PO (15:15)
[2024-06-19] MEDS: Haloperidol Lactate 5 MG/ML Vial 1 MG IM (15:23)
[2024-06-19] MEDS: Haloperidol Lactate 5 MG/ML Vial 2 MG IM (21:04)
[2024-06-19 21:05] LABS: Amphetamine Urine NEGATIVE (<1000 ng/mL); Barbiturate Urine NEGATIVE (< 200 ng/mL); Benzodiazepine Urine NEGATIVE (< 200 ng/mL); Cocaine Urine NEGATIVE (< 300 ng/mL); Ecstacy Urine NEGATIVE (< 500 ng/mL); Methadone Urine NEGATIVE (< 300 ng/mL); Opiates Urine NEGATIVE (< 300 ng/mL); PCP Urine NEGATIVE (< 25 ng/mL); THC Urine NEGATIVE (< 50 ng/mL); Vista UDS pH Range 5
[2024-06-19] MEDS: Meropenem 2 GM in 0.9% Normal Saline (100mL Bag) 100 ML IV (23:48)
[2024-06-20 03:30] VITALS: BP 160/91; PULSE 81; RESP 16; TEMP 36.5; O2SAT 96
[2024-06-20 05:14] LABS: Absolute Lymphocyte Count 26.15 X10^3/uL (0.83-4.51); Absolute Neutrophil Count 5.3 X10^3/uL (2.0-7.7); Basophil# 0.06 X10^3/uL; Basophil% 0.2 % (0-1); Eosinophil# 0.07 X10^3/uL; Eosinophils% 0.2 % (0-5); Hematocrit 39.1 % (40-54); Hemoglobin 12.9 g/dL (13.0-16.5); Lymphocyte # 26.15 X10^3/ul (0.83-4.51); Lymphocyte % 81.5 % (19-41); Mean Platelet Vol. 9.4 fl (6.2-12.0); Monocyte# 0.43 X10^3/uL; Monocyte% 1.3 % (0-10); NRBC Flagged by Analyzer 0 % (0-5); Neutrophil # 5.28 X10^3/uL (2.7-7.7); Neutrophil % 16.5 % (47-70); POSITIVE COUNT YES; POSITIVE DIFFERENTIAL YES; Platelet Count 84 K/mm3 (150-450); RBC Distribution Width CV 13.6 % (11.6-14.6); RBC Distribution Width SD 48.7 fl (35.1-43.9); Red Blood Count 4.03 M/mm3 (4.6-6.2)
[2024-06-20 05:25] LABS: Differential Indicated SCAN CRITERIA MET; White Blood Count 32.1 K/mm3 (4.4-11.0)
[2024-06-20 05:35] LABS: Anion Gap 5 (5-15); BUN 19 mg/dL (7-18); BUN/Creat Ratio 14.7 RATIO (10-20); Calcium,Total 8.8 mg/dL (8.5-10.1); Chloride 110 mmol/L (98-107); Creatinine, Serum 1.29 mg/dL (0.70-1.30); EST Glomerular Filtration Rate 57 mL/min (>60); Est Glom Filt Rate - Afr Amer 69 mL/min (>60); Estimated Creatinine Clearance 61.87 ml/min; Glucose 121 mg/dL (74-106); Potassium 4.3 mmol/L (3.5-5.1); Sodium Level 140 mmol/L (136-145)
[2024-06-20 06:16] LABS: Differential Comment SCANNED
[2024-06-20 07:27] VITALS: O2SAT 96
[2024-06-20 08:59] VITALS: BP 178/96; PULSE 73; RESP 17; TEMP 36.7; O2SAT 97
[2024-06-20] MEDS: Aspirin 81 MG TAB.CHEW PO (09:05)
[2024-06-20] MEDS: Pantoprazole Sodium 40 MG Tablet PO (09:05)
[2024-06-20] MEDS: Clopidogrel Bisulfate 75 MG Tablet PO (09:05)
[2024-06-20] MEDS: Linezolid 600 MG 600 MG/300 ML BAG 200 MG IV ×2 (09:06→21:05)
[2024-06-20] MEDS: 0.9% Saline Lock 10 ML Syringe IV ×2 (09:06→15:13)
[2024-06-20] MEDS: Acyclovir 800 MG in Dextrose 5%-Water (250mL Bag) 250 ML 266 MG IV ×3 (09:09→23:39)
[2024-06-20] MEDS: Meropenem 2 GM in 0.9% Normal Saline (100mL Bag) 100 ML IV ×2 (10:46→21:05)
[2024-06-20] MEDS: hydroCHLOROthiazide 12.5mg 12.5 MG PO (10:49)
[2024-06-20] MEDS: Lisinopril 20 MG Tablet PO (10:49)
[2024-06-20] MEDS: Isosorbide Mononitrate 60 MG Tablet PO (10:49)
--- NOTE | 2024-06-20 11:33 | PN_ITS ---
Subjective Subjective Patient seen and examined. He is alert and oriented noncommunicative this morning. Yesterday late in the afternoon patient became combative and aggressive and had to be given doses of Haldol and Seroquel. He however feels much better today and had no complaints. He denied any dizziness, palpitations, nausea or vomiting or any other symptoms. Review of systems otherwise negative. BP has been elevated today with systolic up in the 170s systolic. Objective Data Objective Data Vital Signs: Vital Signs Temp Pulse Resp BP Pulse Ox O2 Del Method 98.1 F 73 17 178/96 H 97 Room Air 06/20/24 08:59 06/20/24 08:59 06/20/24 08:59 06/20/24 08:59 06/20/24 08:59 06/20/24 09:17 Oxygen Delivery Method Room Air Weight: 263 lb 10.766 oz Body Mass Index (BMI) 34.7 Intake & Output: Intake and Output for Last 24 Hours 06/18/24 06/19/24 06/20/24 23:59 23:59 23:59 Intake Total 1936 / 2136 2571.24 / 2571.24 706 / 706 Output Total 550 / 1400 1675 / 1675 Balance 1936 / 2136 2021.24 / 1171.24 -969 / -969 Lab / Micro Data 06/20/24 04:35 06/20/24 04:35 Labs: Laboratory Results - last 24 hr 06/19/24 20:35: Urine Opiates Screen NEGATIVE, Urine Methadone Screen NEGATIVE, Ur Barbiturates Screen NEGATIVE, Ur Phencyclidine Scrn NEGATIVE, Ur Amphetamines Screen NEGATIVE, MDMA (Ecstasy) Screen NEGATIVE, U Benzodiazepines Scrn NEGATIVE, Urine Cocaine Screen NEGATIVE, U Cannabinoids Screen NEGATIVE, Ur Drug Screen Comment 06/20/24 04:35: WBC 32.1 H*, RBC 4.03 L, Hgb 12.9 L, Hct 39.1 L, MCV 97.0 H, MCH 32.0, MCHC 33.0, RDW Std Deviation 48.7 H, RDW Coeff of Andrey 13.6, Plt Count 84 L , MPV 9.4, Immature Gran % (Auto) 0.300, Neut % (Auto) 16.5 L, Lymph % (Auto) 81.5 H, [place] % (Auto) 1.3, Eos % (Auto) 0.2, Baso % (Auto) 0.2, Absolute Neuts (auto) 5.3, Absolute Lymphs (auto) 26.15 H, Nucleated RBC % 0, Differential Comment SCANNED, Diff Path Review March foll, Sodium 140, Potassium 4.3, Chloride 110 H, Carbon Dioxide 25.0, Anion Gap 5, BUN 19 H, Creatinine 1.29, Estim Creat Clear Calc 61.87, Est GFR (MDRD) Af Amer 69, Est GFR (MDRD) Non-Af 57 L, BUN/Creatinine Ratio 14.7, Glucose 121 H, Calcium 8.8 Micro: Microbiology 06/18/24 18:30 Urine, Clean Catch Urine Culture - Final Staphylococcus epidermidis Radiography Diagnostic Testing: Radiology Impression Echocardiogram 06/18/24 19:50 Interpretation Summary The estimated ejection fraction is 60 %. No evidence for diastolic dysfunction. Trivial mitral valve insufficiency. Mildly dilated ascending aorta. Ordering Physician: Michael Polanco Referring Physician: Opal Javier M.D. Performed By: Shantal Burris [facility] Brain MRI 06/19/24 10:50 IMPRESSION: 1. No MRI evidence of acute or subacute ischemic infarct or remote cortical-based ischemic infarct. 2. Progression of chronic white matter ischemic changes in both cerebral hemispheres when compared to 02/20/2016. 3. No abnormally enhancing lesions intra-axially and extra-axially. Electronically Signed: Zechariah Oneal MD at 11:53 EDT , Rhythm Strip Rhythm Strip: Sinus Rhythm Rate: 80 Ectopy: None Physical Exam Const alert, oriented x3 and no apparent distress General Appearance: cooperative and comfortable HEENT normocephalic, head/scalp atraumatic, hearing grossly normal bilaterally, nasal mucous membranes and turbinates normal, moist oral mucous membranes and oropharynx normal Eyes PERRL, EOMs intact bilaterally and conjunctivae normal Neck full ROM, no lymphadenopathy, supple and no JVD Lymph Lymphatic: no lymphadenopathy noted and no lymphedema noted Chest inspection of chest normal Resp normal respiratory effort Resp Narrative: mildly diminished breath sounds bibasally, no wheezes or crackles. On room air. Cardio regular rate, regular rhythm, S1 normal heart sound, S2 normal heart sound, no murmurs and peripheral pulses 2+ throughout GI normal to inspection, nondistended, normoactive bowel sounds, soft to palpation, non-tender and non-distended Back/Spine normal ROM Extremity normal to inspection, full ROM, normal capillary refill, no clubbing, cyanosis or edema, no calf tenderness and no pedal edema General Extremity: no tenderness to palpation of joints or extremities Skin Skin Narrative: erythematous rash over upper torso and upper back concerning for red man syndrome is resolving. General Skin Exam: no breakdown Neuro CN's II-XII intact bilaterally, moves all extremities, no focal motor deficits, no sensory deficits noted and deep tendon reflexes 2+ bilaterally Speech: speech normal Motor Exam: strength 5/5 throughout and general weakness Psych thought process normal, cooperative and affect normal Appearance: appropriate Assessment & Plan Assessment/Plan (1) Altered mental status: (2) Sepsis: PLAN: Plan #Acute encephalopathy * Etiology is not clear. Had a intact mental status and syncope whilst at the [facility]. * patient became confused and agitated yesterday. He required haldol IM and was also given a dose of seroquel. * Patient now alert and oriented. CT of the brain was negative. * [facility] [place] and was concerned about meningitis versus encephalitis in light of patient's altered mental status and leukocytosis. * MRI of the brain showed no evidence of acute or subacute ischemic infarct or remote cortical based ischemic infarct which appeared to have progressed. * wbc is slightly up from 30 yesterday to 32 today. * Blood cultures pending * currently on IV linezolid and meropenem as well as IV acyclovir. * Neurology on board. Per neurology, depending on MRI results, may require LP. * Kernig's and Brudzinski's were negative. Patient is afebrile and has no neck pain. He does have a history of CLL. * ID consulted * urine cultures growing staph epidermidis * if blood cultures come back negative, will dc IV antibiotics. * urine culture negative. * * #Probable red man syndrome: Will DC vancomycin as rash is quite diffuse. Rash is resolving. #Elevated creatinine: Creatinine was 1.87 on admission with a baseline of around 1.3. Cr trended down further today to 1.29 #History of CAD s/p CABG: On aspirin Plavix and statin #Hypertension: On lisinopril hydrochlorothiazide. IV hydralazine as needed #GERD: On PPI #BPH with obstructive symptoms: On Flomax #History of CLL: * His WBC was markedly elevated but has trended down. * However it is lymphocyte predominant. * Will monitor and if this persists, will need to consult hematology. #Thrombocytopenia: Platelets are slightly up to 84 today. He has chronic thrombocytopenia. Will monitor. Due to prophylaxis: SCDs. Charges/Coding Visit Charges Inpatient E&M: 66394 Subs Hosp L2
[2024-06-20 13:13] VITALS: BMI 34.7
[2024-06-20 15:04] VITALS: BP 132/74; PULSE 99; RESP 16; TEMP 37; O2SAT 96
[2024-06-20] MEDS: Tamsulosin HCl 0.4 MG Capsule PO (17:30)
[2024-06-20 20:12] VITALS: BMI 34.7
[2024-06-20 21:00] VITALS: BP 108/71; PULSE 85; RESP 16; TEMP 36.7; O2SAT 97
[2024-06-20] MEDS: Atorvastatin Calcium 40 MG Tablet PO (21:05)
[2024-06-21 03:00] VITALS: BP 141/75; PULSE 77; RESP 18; TEMP 36.6; O2SAT 96
[2024-06-21] MEDS: Meropenem 2 GM in 0.9% Normal Saline (100mL Bag) 100 ML IV (05:38)
[2024-06-21 06:15] LABS: Absolute Neutrophil Count 4.4 X10^3/uL (2.0-7.7); Basophil# 0.05 X10^3/uL; Basophil% 0.2 % (0-1); Eosinophil# 0.14 X10^3/uL; Eosinophils% 0.4 % (0-5); Hematocrit 38.2 % (40-54); Hemoglobin 12.4 g/dL (13.0-16.5); Lymphocyte % 83.7 % (19-41); Mean Corp Hgb Conc 32.5 g/dL (32-36); Mean Corpuscular Hgb 31.3 pg (27.0-32.0); Mean Corpuscular Volume 96.5 fL (80-94); Mean Platelet Vol. 9.4 fl (6.2-12.0); Monocyte# 0.51 X10^3/uL; Monocyte% 1.6 % (0-10); NRBC Flagged by Analyzer 0 % (0-5); Neutrophil # 4.38 X10^3/uL (2.7-7.7); Neutrophil % 13.9 % (47-70); POSITIVE COUNT YES; POSITIVE DIFFERENTIAL YES; Platelet Count 81 K/mm3 (150-450); RBC Distribution Width CV 13.3 % (11.6-14.6); RBC Distribution Width SD 47.1 fl (35.1-43.9); Red Blood Count 3.96 M/mm3 (4.6-6.2)
[2024-06-21 06:31] LABS: Anion Gap 5 (5-15); BUN 17 mg/dL (7-18); BUN/Creat Ratio 12.7 RATIO (10-20); Calcium,Total 8.8 mg/dL (8.5-10.1); Chloride 108 mmol/L (98-107); Creatinine, Serum 1.34 mg/dL (0.70-1.30); EST Glomerular Filtration Rate 54 mL/min (>60); Est Glom Filt Rate - Afr Amer 66 mL/min (>60); Estimated Creatinine Clearance 59.56 ml/min; Glucose 127 mg/dL (74-106); Potassium 3.6 mmol/L (3.5-5.1); Sodium Level 139 mmol/L (136-145)
[2024-06-21 07:04] LABS: Differential Comment SCANNED; Differential Indicated SCAN CRITERIA MET; White Blood Count 31.4 K/mm3 (4.4-11.0)
[2024-06-21 08:00] VITALS: BP 113/80; PULSE 83; RESP 18; TEMP 36.8; O2SAT 96
[2024-06-21 08:08] VITALS: O2SAT 95
[2024-06-21] MEDS: hydroCHLOROthiazide 12.5mg 12.5 MG PO (08:58)
[2024-06-21] MEDS: Aspirin 81 MG TAB.CHEW PO (08:58)
[2024-06-21] MEDS: Lisinopril 20 MG Tablet PO (08:58)
[2024-06-21] MEDS: Pantoprazole Sodium 40 MG Tablet PO (08:58)
[2024-06-21] MEDS: Isosorbide Mononitrate 60 MG Tablet PO (08:58)
[2024-06-21] MEDS: Multivitamins,Therapeutic Tablet 1 TABLET PO (08:58)
[2024-06-21] MEDS: Clopidogrel Bisulfate 75 MG Tablet PO (09:00)
[2024-06-21] MEDS: 0.9% Saline Lock 10 ML Syringe IV (09:04)
[2024-06-21] MEDS: Acyclovir 800 MG in Dextrose 5%-Water (250mL Bag) 250 ML 266 MG IV (09:08)
--- NOTE | 2024-06-21 10:02 | CASEMGMT ---
Social Work PHQ-9 not completed as pt did not have a stroke. JOSE R James
--- NOTE | 2024-06-21 10:50 | CASEMGMT ---
Social Work SW met w/pt in room in regard to discharge plan. Pt initially told SW that he is seeing bugs on the ceiling. Pt is aware he is seeing things that are not there, asked SW if this is a normal thing that happens to patients. SW explained that it can happen, and did let him know that the infectious disease doctor is coming to see him today and hopefully will give some insight. SW inquired if he has had this happen in the past. Pt states he did have this happen one time in [place], he had an infection. He also went on to tell SW that he has spinal surgery, states this was 3-4 years ago. He also states he sees Dr. Ndiaye for shoulder issues, and had an MRI recently for this. Pt then explained to SW that he is trying to get his finances in order, states wants to leave money to the grandchildren. He states has one daughter who is in her 20s, states she is an addict. Pt states he does have friends that can help him, states lives alone and is normally independent. Pt states he may hire a medical housekeeper. He states usually prepares his own meals. Pt is not certain if he can drive anymore, states he came in here from the [facility], was there trying to renew his license. He states has done outpt therapy in the past, but is concerned due to not being able to drive. He may be open to home health. He is also open to Meals on Wheels. We spoke about going somewhere for rehab, however pt is walking 100 feet, contact guard. He states he doesn't know if he could make it in a rehab for 3 months. Pt commented that it is hard to accept when someone is in the last quarter of their life. He also stated that he does not feel like he is going to get out of here. He states that Morena is is financial POA, still needs to get to the bank to fill out their POA information. Support given to pt. SW spoke w/pt about POA for Healthcare. Pt states that Manuel Amaya is his healthcare POA. He does not have Manuel's number, asked the two high school girls to bring him a phone book. (Pt is referring to the nurses). He states whenever he needs to call Manuel, he just looks him up in the phone book. SW explained can also look for his number and if SW is able to find it, will bring it in to him. Pt sates understanding. SW did search for Manuel Amaya online, found [facility] Law office where his son Niko works. SW called the law office, learned that Morena Velazquez is healthcare POA and Manuel's son Niko is the alternate. [facility] faxed over the POA document confirming this. AMALIA will follow up w/pt's POA Morena shortly. JOSE R James
[2024-06-21] MEDS: Linezolid 600 MG 600 MG/300 ML BAG 200 MG IV (10:58)
[2024-06-21 11:21] VITALS: BMI 34.7
--- NOTE | 2024-06-21 11:55 | CASEMGMT ---
Social Work Pt's POA for Healthcare Morena called SW. AMALIA explained was going to call her, just learned she is pt's Healthcare POA. Morena was unaware she was POA, states I was afraid of that. Morena report that pt has been goofy for years, but states it has been worse the last 6 months. Recently pt was dating a woman named Erica, but Erica lives near . They decided that they were not going to be a couple anymore. Additionally, Morena states that pt's friend Jayjay lost a friend recently and sent pt a long text about how short life is, and to appreciate life. Morena thinks both of these things are affecting pt. She states that pt has a daughter in [place] who is an addict. She states pt has some supportive friends, but they are all geriatric. She mentioned a friend named Irene in addition to Jayjay and herself, states they are all 80+. Morena asked about pt going somewhere for rehab, AMALIA explained that pt is walking well and insurance would likely not cover it. AMALIA explained we would need to look into applying for Medicaid or pt paying privately. She states pt would not qualify for Medicaid, not sure if pt would pay for rehab or not. She then got a call from the health care attorney's office, asked SW to call her back. AMALIA called Morena back. She learned that as per the health care attorney's office, she is both medical and financial POA. We spoke again about options, AMALIA explained can speak w/him regarding whether or not he would be willing to pay privately. Morena is not sure, states it would be good to set up HHC, MOW and help w/cleaning. AMALIA explained we can set up HHC, MOW and can give pt a list of private hire aide agencies. Morena states understanding. AMALIA will continue to follow, will speak w/pt again this afternoon regarding discharge plan. JOSE R James
--- NOTE | 2024-06-21 11:57 | PN_ITS ---
Subjective Subjective Patient seen and examined. He had no active complaints. He still does remain a bit confused. He denied any fever, chills, cough, chest pain, palpitations, dizziness, nausea, vomiting or any other symptoms. Review of systems is otherwise negative. Objective Data Objective Data Vital Signs: Vital Signs Temp Pulse Resp BP Pulse Ox O2 Del Method 98.2 F 83 18 113/80 95 Room Air 06/21/24 08:00 06/21/24 08:00 06/21/24 08:00 06/21/24 08:00 06/21/24 08:08 06/21/24 08:15 Oxygen Delivery Method Room Air Weight: 263 lb 10.766 oz Body Mass Index (BMI) 34.7 Intake & Output: Intake and Output for Last 24 Hours 06/19/24 06/20/24 06/21/24 23:59 23:59 23:59 Intake Total 2571.24 / 2571.24 2352 / 2712 1272 / 1272 Output Total 550 / 1400 2325 / 2775 1500 / 1500 Balance 2021.24 / 1171.24 27 / -63 -228 / -228 Lab / Micro Data 06/21/24 05:24 06/21/24 05:24 Labs: Laboratory Results - last 24 hr 06/21/24 05:24: WBC 31.4 H*, RBC 3.96 L, Hgb 12.4 L, Hct 38.2 L, MCV 96.5 H, MCH 31.3, MCHC 32.5, RDW Std Deviation 47.1 H, RDW Coeff of Andrey 13.3, Plt Count 81 L , MPV 9.4, Immature Gran % (Auto) 0.200, Neut % (Auto) 13.9 L, Lymph % (Auto) 83.7 H, [place] % (Auto) 1.6, Eos % (Auto) 0.4, Baso % (Auto) 0.2, Absolute Neuts (auto) 4.4, Absolute Lymphs (auto) 26.30 H, Nucleated RBC % 0, Differential Comment SCANNED, Diff Path Review March, Sodium 139, Potassium 3.6, Chloride 108 H, Carbon Dioxide 26.0, Anion Gap 5, BUN 17, Creatinine 1.34 H, Estim Creat Clear Calc 59.56, Est GFR (MDRD) Af Amer 66, Est GFR (MDRD) Non-Af 54 L, BUN/Creatinine Ratio 12.7, Glucose 127 H, Calcium 8.8 Micro: Microbiology 06/18/24 18:30 Urine, Clean Catch Urine Culture - Final Staphylococcus epidermidis Rhythm Strip Rhythm Strip: Sinus Rhythm Rate: 80 Ectopy: None Physical Exam Const alert and no apparent distress Constitutional Narrative: flat affect General Appearance: cooperative and comfortable HEENT normocephalic, head/scalp atraumatic, hearing grossly normal bilaterally, nasal mucous membranes and turbinates normal, moist oral mucous membranes and oropharynx normal Eyes PERRL, EOMs intact bilaterally and conjunctivae normal Neck full ROM, no lymphadenopathy, supple and no JVD Lymph Lymphatic: no lymphadenopathy noted and no lymphedema noted Chest inspection of chest normal Resp normal respiratory effort, normal air movement, no use of accessory muscles and clear to auscultation bilaterally Resp Narrative: on room air. Cardio regular rate, regular rhythm, S1 normal heart sound, S2 normal heart sound, no murmurs and peripheral pulses 2+ throughout GI normal to inspection, nondistended, normoactive bowel sounds, soft to palpation, non-tender and non-distended Back/Spine normal ROM Extremity normal to inspection, full ROM, normal capillary refill, no clubbing, cyanosis or edema, no calf tenderness and no pedal edema General Extremity: no tenderness to palpation of joints or extremities Skin no rashes or lesions noted Skin Narrative: erythematous rash over upper torso and upper back concerning for red man syndrome has largely resolved General Skin Exam: no breakdown Neuro CN's II-XII intact bilaterally, moves all extremities, no focal motor deficits, no sensory deficits noted and deep tendon reflexes 2+ bilaterally Speech: speech normal Motor Exam: strength 5/5 throughout and general weakness Psych thought process normal, cooperative and affect normal Appearance: appropriate Assessment & Plan Assessment/Plan (1) Altered mental status: (2) Sepsis: PLAN: Plan #Acute encephalopathy * now improving. * was agitated during this admission but this has now resolved. * Patient now alert and oriented. CT of the brain was negative. * [facility] [place]urology was consulted and was concerned about meningitis versus encephalitis in light of patient's altered mental status and leukocytosis. * MRI of the brain showed no evidence of acute or subacute ischemic infarct or remote cortical based ischemic infarct which appeared to have progressed. * wbc still remains elevated at 31, and is mainly lymphocyte predominant * Blood cultures still pending * currently on IV linezolid and meropenem as well as IV acyclovir. * Neurology on board. Per neurology, depending on MRI results, may require LP. * Kernig's and Brudzinski's were negative. Patient is afebrile and has no neck pain. He does have a history of CLL. * ID consulted; awiat ID rec's to determine dc'ing antibiotics * urine cultures growing staph epidermidis * urine culture negative. * will consult hematology in light of persistent elevated wbc. #Probable red man syndrome: Will DC vancomycin as rash is quite diffuse. Rash is resolving. #Elevated creatinine: Cr today is 1.34. Will monitor. #History of CAD s/p CABG: On aspirin Plavix and statin #Hypertension: On lisinopril hydrochlorothiazide. IV hydralazine as needed #GERD: On PPI #BPH with obstructive symptoms: On Flomax #History of CLL: * His WBC was markedly elevated but has trended down. * However it is lymphocyte predominant. * Will monitor and if this persists, will need to consult hematology. #Thrombocytopenia: Platelets are slightly up to 84 today. He has chronic thrombocytopenia. Will monitor. Due to prophylaxis: SCDs. Charges/Coding Visit Charges Inpatient E&M: 08379 Subs Hosp L2
--- NOTE | 2024-06-21 14:17 | PCM.CONS.GEN ---
Assessment & Plan Assessment/Plan (1) Altered mental status: PLAN: Mental status improved since admit. Leukocytosis and KIET improved. No fever, no headache, and no neck pain with rapid improvement in his confusion, so low suspicion for meningitis. Neuro is following. UA was neg, Ucx with some staph epi. Will narrow abx to ceftriaxone for short empiric course. Will follow, thank you (2) Leukocytosis: (3) KIET (acute kidney injury): (4) Chronic lymphocytic leukemia: HPI Consult Data Date of Consult: 06/21/24 HPI Narrative Reason for Consultation: leukocytosis HPI Narrative: SILVIANO GONZALEZ, is a 78 M with h/o CLL, CKD, presented with acute onset confusion, dizziness, syncope on 06/18. Lives at home alone and drove to [facility] that day. Admitted from ED on vanc/francis/acyclovir. Neurology consulted, imaging done. Vanc changed to linezolid due to rash. Feeling better. No fever, no headache, no neck pain, no n/v/d, no rash, no body aches. Reports several months of depressed mood. Full ROS performed and neg except as noted above. [facility] Medical History Primary osteoarthritis, left shoulder Primary osteoarthritis, right shoulder Left shoulder pain Right shoulder pain Wears partial dentures Wears glasses Depression Alcohol use Ambulates with cane Arthritis Prostate disease Anemia Excessive bleeding Easy bruising Injury of back Back pain History of leukemia Injury of head and neck Gastric reflux Former smoker Shortness of breath on exertion History of pain when walking History of edema History of echocardiogram Normal stress echocardiogram History of stress test Cardiology follow-up encounter History of heart attack Thrombocytopenia Old inferior wall myocardial infarction (1990) Abdominal aortic aneurysm (AAA) Atherosclerotic heart disease of [place] coronary artery without angina pectoris Atherosclerosis of coronary artery bypass graft without angina pectoris Chronic lymphocytic leukemia Cervical stenosis of spinal canal (12/10/19) Incontinence Obesity Erectile dysfunction Peptic ulcer Carotid artery stenosis without cerebral infarction Hyperlipidemia Essential hypertension Home Medications ?Medication ?Instructions ?Recorded ?Last Taken ?Type tamsulosin 0.4 mg capsule 0.4 mg PO BID #180 caps 12/02/22 Unknown Rx isosorbide mononitrate 60 mg 60 mg PO DAILY #90 tabs 12/04/23 Unknown Rx tablet,extended release 24 hr lisinopril 20 1 tab PO DAILY Pt lost bottle: 12/29/23 Unknown Rx mg-hydrochlorothiazide 12.5 mg please charge fischer tucker #90 tabs tablet clopidogrel 75 mg tablet (Plavix) 75 mg PO DAILY #90 tabs 02/06/24 Unknown Rx tramadol 50 mg tablet 50 mg PO BID PRN pain #60 tabs 05/31/24 Unknown Rx acetaminophen 650 mg 650 mg PO Q8H PRN pain 06/19/24 Unknown History tablet,extended release (8 Hour Pain Reliever) ibuprofen 400 mg tablet (IBU) 400 mg PO Q4H pain 06/19/24 Unknown History sennosides 8.6 mg-docusate sodium 1 tab-cap PO QODAY PRN constipation 06/19/24 Unknown History 50 mg tablet (Stool Softener-Laxative) Allergy/AdvReac Type Severity Reaction Status Date / Time Penicillins Allergy Hives Verified 06/15/24 12:25 vancomycin Allergy Rash Verified 06/21/24 07:37 carvedilol (From Coreg) AdvReac Intermediate Unknown Verified 06/15/24 12:25 doxycycline AdvReac Intermediate GI Verified 06/15/24 12:25 intolerance Family History Mother Cancer Father Diabetes Heart disease Hypertension Sister Diabetes Surgical History Hx of cystoscopy (~2023) History of left heart catheterization (05/17/21) History of coronary angioplasty (1990) H/O coronary artery bypass surgery (1991) History of coronary artery stent placement (05/25/21) History of cervical spinal surgery (12/20/19) History of endovascular stent graft for abdominal aortic aneurysm (AAA) (11/07/16) Social History household members: none Smoking Status: Never smoker how long ago did patient quit smoking: Quit 05/2007, smoked 1 ppd until quit. alcohol intake: current alcohol intake frequency: holidays/special occasions only substance use type: does not use caffeine: Yes Type: coffee Number of servings: 2 Physical Exam Const alert and no apparent distress Constitutional Narrative: oriented x2 General Appearance: cooperative HEENT normocephalic and head/scalp atraumatic Eyes PERRL and EOMs intact bilaterally Neck No nuchal rigidity, supple and No nodes Resp normal air movement and clear to auscultation bilaterally Cardio regular rate and regular rhythm GI soft to palpation, non-tender and non-distended Extremity General Extremity: Negative for edema Skin no rashes or lesions noted Neuro CN's II-XII intact bilaterally Lab / Micro Data Attestation: I reviewed the patient's lab results. 06/21/24 05:24 06/21/24 05:24 Labs: Laboratory Results - last 24 hr 06/21/24 05:24: WBC 31.4 H*, RBC 3.96 L, Hgb 12.4 L, Hct 38.2 L, MCV 96.5 H, MCH 31.3, MCHC 32.5, RDW Std Deviation 47.1 H, RDW Coeff of Andrey 13.3, Plt Count 81 L, MPV 9.4, Immature Gran % (Auto) 0.200, Neut % (Auto) 13.9 L, Lymph % (Auto) 83.7 H, [place] % (Auto) 1.6, Eos % (Auto) 0.4, Baso % (Auto) 0.2, Absolute Neuts (auto) 4.4, Absolute Lymphs (auto) 26.30 H, Nucleated RBC % 0, Differential Comment SCANNED, Diff Path Review March, Sodium 139, Potassium 3.6, Chloride 108 H, Carbon Dioxide 26.0, Anion Gap 5, BUN 17, Creatinine 1.34 H, Estim Creat Clear Calc 59.56, Est GFR (MDRD) Af Amer 66, Est GFR (MDRD) Non-Af 54 L, BUN/Creatinine Ratio 12.7, Glucose 127 H, Calcium 8.8 Rhythm Strip Rhythm Strip: Sinus Rhythm Rate: 80 Ectopy: None
[2024-06-21 14:31] LABS: Pathologist Review Reviewed
[2024-06-21 14:32] LABS: Pathologist Review Reviewed
[2024-06-21 14:42] LABS: Pathologist Review Reviewed
[2024-06-21 14:43] LABS: Pathologist Review Reviewed
--- NOTE | 2024-06-21 15:34 | CASEMGMT ---
Addendum entered by Luz Hills 06/21/24 16:33: Social Work [facility] did call SW back, they have two apartments available in their memory care unit, two studios in the AL, and their respite room (for a 30-90 day stay) is also open at present. SW will follow up w/pt and EAN Berg tomorrow. JOSE R James Original Note: [facility], and PHYSICS TEACHER Yris Teach comes to see pt at home. This service is provided by insurance, pt can get home health care while also getting this service. Pt called Yris and she came to see pt in the hospital. She confirms pt has had intermittent confusion at home. She states pt told her he would be agreeable to go to assisted living and cover the cost. Pt's friend/POA Morena and friend Irene are here visiting. SW introduced self to Morena and Irene. Pt does not remember speaking w/SW earlier today. Morena brought in copies of pt's Living Will and Financial POA, copies placed on chart. SW spoke w/pt with his friends in regard to discharge plan. Pt states is overwhelmed, was speaking w/his friends and is not quite certain what to to. SW brought up AL, mentioned Yris had said he may be agreeable to this. SW reminded pt that it is private pay(friend Morena has said pt would be able to afford it). Pt is not sure, wants to discuss with his friends. SW explained to pt he does not need to come up with an answer today. SW provided a list of ALs to pt's friend/POA Morena. Morena and Irene thought [facility] or [facility] may be good options for pt for AL. SW explained can call to see about room availability and will let them know. Morena had asked if pt could go somewhere for just a month, AMALIA explains that AL is month to month. We spoke about respite at [facility], AMALIA explained can find out if they still offer this. As we were talking, pt became visibly frustrated, at one point was about to get up out of the chair, said to SW that he just wants to leave w/his friends. SW and pt's friends redirected him, reminded him he is in the hospital and he isn't leaving w/them today. APARTMENT MAINTENANCE TECHNICIAN then came in to work w/pt, but pt was visibly frustrated so she will come back to see pt tomorrow. SW explained to pt and family will check w/[facility] and w/[facility], and will follow up tomorrow. SW called [facility], message left regarding respite, message left. SW called [facility], message left. SW will continue to follow. JOSE R James
--- NOTE | 2024-06-21 15:50 | CON.PCM.ON_ITS ---
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 Funmi Hernandez MD Med Surg Nurse, [facility] Divisions of Medical Oncology & Hematology Department of Internal Medicine [place] [phone] This note was generated using a voice recognition system software. Although it was reviewed by the author prior to finalization, it may still contain incorrect words, spelling, and punctuation that were not noted when reviewing prior to saving. If a clinically significant typo or inaccurately typed phrase is noted, please notify the author. HPI Consult Data Date of Service:: 06/21/24 PCP / Referring Provider: Dr. Opal Javier MD Attending: Dr. Wendy Sheth MD Chief Complaint Chief Complaint: Altered mental status History of Present Illness History of Present Illness: 78-year-old male hospitalized June 18, 2024 with altered mental status. Hematology consultation requested for leukocytosis. Patient is able to provide limited history but confirmed that he had chronic lymphocytic leukemia for over 10 years, being followed up without any treatment at [facility]. Advanced Directives Power of Core Cleaner: Yes Living Will: Yes [facility] Medical History Primary osteoarthritis, left shoulder Primary osteoarthritis, right shoulder Left shoulder pain Right shoulder pain Wears partial dentures Wears glasses Depression Alcohol use Ambulates with cane Arthritis Prostate disease Anemia Excessive bleeding Easy bruising Injury of back Back pain History of leukemia Injury of head and neck Gastric reflux Former smoker Shortness of breath on exertion History of pain when walking History of edema History of echocardiogram Normal stress echocardiogram History of stress test Cardiology follow-up encounter History of heart attack Thrombocytopenia Old inferior wall myocardial infarction (1990) Abdominal aortic aneurysm (AAA) 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 Chronic lymphocytic leukemia Cervical stenosis of spinal canal (12/10/19) Incontinence Obesity Erectile dysfunction Peptic ulcer Carotid artery stenosis without cerebral infarction Hyperlipidemia Essential hypertension Home Medications ?Medication ?Instructions ?Recorded ?Last Taken ?Type tamsulosin 0.4 mg capsule 0.4 mg PO BID #180 caps 12/02/22 Unknown Rx isosorbide mononitrate 60 mg 60 mg PO DAILY #90 tabs 12/04/23 Unknown Rx tablet,extended release 24 hr lisinopril 20 1 tab PO DAILY Pt lost bottle: 12/29/23 Unknown Rx mg-hydrochlorothiazide 12.5 mg please charge fischer tucker #90 tabs tablet clopidogrel 75 mg tablet (Plavix) 75 mg PO DAILY #90 tabs 02/06/24 Unknown Rx tramadol 50 mg tablet 50 mg PO BID PRN pain #60 tabs 05/31/24 Unknown Rx acetaminophen 650 mg 650 mg PO Q8H PRN pain 06/19/24 Unknown History tablet,extended release (8 Hour Pain Reliever) ibuprofen 400 mg tablet (IBU) 400 mg PO Q4H pain 06/19/24 Unknown History sennosides 8.6 mg-docusate sodium 1 tab-cap PO QODAY PRN constipation 06/19/24 Unknown History 50 mg tablet (Stool Softener-Laxative) Allergy/AdvReac Type Severity Reaction Status Date / Time Penicillins Allergy Hives Verified 06/15/24 12:25 vancomycin Allergy Rash Verified 06/21/24 07:37 carvedilol (From Coreg) AdvReac Intermediate Unknown Verified 06/15/24 12:25 doxycycline AdvReac Intermediate GI Verified 06/15/24 12:25 intolerance Family History Mother Cancer Father Diabetes Heart disease Hypertension Sister Diabetes Surgical History Hx of cystoscopy (~2023) History of left heart catheterization (05/17/21) History of coronary angioplasty (1990) H/O coronary artery bypass surgery (1991) History of coronary artery stent placement (05/25/21) History of cervical spinal surgery (12/20/19) History of endovascular stent graft for abdominal aortic aneurysm (AAA) (11/07/16) Social History household members: none Smoking Status: Never smoker how long ago did patient quit smoking: Quit 05/2007, smoked 1 ppd until quit. alcohol intake: current alcohol intake frequency: holidays/special occasions only substance use type: does not use caffeine: Yes Type: coffee Number of servings: 2 ROS ROS Narrative Patient was too confused to give a credible review of systems Physical Exam Const no apparent distress Orientation / Consciousness: oriented to person; Negative for oriented to place or oriented to time Vital Signs Temperature 98.2 F 06/21/24 08:00 Temperature Source Oral 06/21/24 08:00 Pulse Rate 83 06/21/24 08:00 Pulse Strength Normal (2+) 06/21/24 08:15 Respiratory Rate 18 06/21/24 08:00 Respiratory Effort Normal, Non-Labored 06/21/24 12:53 Respiratory Depth Normal 06/21/24 12:53 Respiratory Pattern Normal 06/21/24 12:53 Blood Pressure 113/80 06/21/24 08:00 Blood Pressure Mean 91 06/21/24 08:00 Blood Pressure Source Monitor 06/21/24 08:00 Blood Pressure Position Semi-Fowlers 06/21/24 08:00 Blood Pressure Location Right Arm 06/21/24 08:00 Pulse Ox 95 06/21/24 08:08 Oxygen Delivery Method Room Air 06/21/24 12:53 Laboratory Results 06/21/24 06/20/24 06/19/24 05:24 04:35 06:15 WBC 31.4 H* 32.1 H* 30.5 H* Hgb 12.4 L 12.9 L 12.3 L Plt Count 81 L 84 L 78 L Absolute Neuts (auto) 4.4 5.3 5.3 Absolute Lymphs (auto) 26.30 H 26.15 H 24.94 H 06/18/24 10/08/23 16:35 08:56 WBC 46.3 H* 23.4 H Hgb 13.6 13.9 Plt Count 113 L 94 L Absolute Neuts (auto) 7.5 3.2 Absolute Lymphs (auto) 37.83 H 18.92 H Laboratory Results - last 24 hr 06/18/24 16:35: Diff Path Review Reviewed 06/20/24 04:35: Diff Path Review Reviewed 06/21/24 05:24: WBC 31.4 H*, RBC 3.96 L, Hgb 12.4 L, Hct 38.2 L, MCV 96.5 H, MCH 31.3, MCHC 32.5, RDW Std Deviation 47.1 H, RDW Coeff of Andrey 13.3, Plt Count 81 L , MPV 9.4, Immature Gran % (Auto) 0.200, Neut % (Auto) 13.9 L, Lymph % (Auto) 83.7 H, [place] % (Auto) 1.6, Eos % (Auto) 0.4, Baso % (Auto) 0.2, Absolute Neuts (auto) 4.4, Absolute Lymphs (auto) 26.30 H, Nucleated RBC % 0, Differential Comment SCANNED, Diff Path Review Reviewed, Sodium 139, Potassium 3.6, Chloride 108 H, Carbon Dioxide 26.0, Anion Gap 5, BUN 17, Creatinine 1.34 H, Estim Creat Clear Calc 59.56, Est GFR (MDRD) Af Amer 66, Est GFR (MDRD) Non-Af 54 L, BUN/Creatinine Ratio 12.7, Glucose 127 H, Calcium 8.8 Microbiology 06/18/24 16:50 Blood Culture (Wb) - Anticubital Left Blood Culture - Preliminary No growth in [address] Data [address] 06/18/24 16:21 IMPRESSION: Small vessel ischemia. Electronically Signed: Ellie Smith MD at 16:37 EDT Reading Location ID and State: [facility] / [place] Tel , Service support , ADDENDUM: 06/18/24 1644 IMPRESSION: Small vessel ischemia. N.B. : The above Results were Read Back by Ellie Smith MD to Jake Bhardwaj MD, and understanding confirmed on 06/18/2024 16:38:31 (ET). Electronically Signed: Ellie Smith MD at 16:37 EDT , Head/Neck CTA 06/18/24 16:21 IMPRESSION: Within normal limits CTA of the head and neck. Electronically Signed: lElie Smith MD at 17:04 EDT , ADDENDUM: 06/18/24 1711 IMPRESSION: Within normal limits CTA of the head and neck. N.B. : The above Results were Read Back by Ellie Smith MD to Jake Bhardwaj MD, and understanding confirmed on 06/18/2024 17:04:34 (ET). Electronically Signed: Ellie Smith MD at 17:04 EDT , Chest X-Ray 06/18/24 17:00 IMPRESSION: Minimal bibasilar atelectasis and/or pneumonia. Electronically Signed: Ellie Smith MD at 17:30 EDT , Echocardiogram 06/18/24 19:50 Interpretation Summary The estimated ejection fraction is 60 %. No evidence for diastolic dysfunction. Trivial mitral valve insufficiency. Mildly dilated ascending aorta. Ordering Physician: Michael Polanco Referring Physician: Opal Javier M.D. Performed By: Shantal Burris RDCS Brain MRI 06/19/24 10:50 IMPRESSION: 1. No MRI evidence of acute or subacute ischemic infarct or remote cortical-based ischemic infarct. 2. Progression of chronic white matter ischemic changes in both cerebral hemispheres when compared to 02/20/2016. 3. No abnormally enhancing lesions intra-axially and extra-axially. Electronically Signed: Zechariah Oneal MD at 11:53 EDT ,
[2024-06-21 16:06] VITALS: BP 132/86; PULSE 82; RESP 18; TEMP 36.8; O2SAT 94
[2024-06-21] MEDS: Tamsulosin HCl 0.4 MG Capsule PO (17:29)
[2024-06-21] MEDS: Haloperidol Lactate 5 MG/ML Vial 1 MG IM (18:40)
[2024-06-21 22:06] VITALS: BP 127/87; PULSE 87; RESP 18; TEMP 36.9; O2SAT 95
[2024-06-22] MEDS: Haloperidol Lactate 5 MG/ML Vial 1 MG IM (00:45)
[2024-06-22 03:23] VITALS: BP 144/97; PULSE 84; RESP 18; TEMP 36.5; O2SAT 95
[2024-06-22 06:18] LABS: Absolute Lymphocyte Count 28.17 X10^3/uL (0.83-4.51); Absolute Neutrophil Count 4.3 X10^3/uL (2.0-7.7); Basophil# 0.06 X10^3/uL; Basophil% 0.2 % (0-1); Eosinophil# 0.08 X10^3/uL; Eosinophils% 0.2 % (0-5); Hematocrit 38.8 % (40-54); Hemoglobin 12.9 g/dL (13.0-16.5); Lymphocyte # 28.17 X10^3/ul (0.83-4.51); Mean Corp Hgb Conc 33.2 g/dL (32-36); Mean Corpuscular Hgb 31.7 pg (27.0-32.0); Mean Corpuscular Volume 95.3 fL (80-94); Mean Platelet Vol. 9.6 fl (6.2-12.0); Monocyte# 0.45 X10^3/uL; Monocyte% 1.4 % (0-10); NRBC Flagged by Analyzer 0 % (0-5); Neutrophil # 4.34 X10^3/uL (2.7-7.7); POSITIVE COUNT YES; POSITIVE DIFFERENTIAL YES; Platelet Count 86 K/mm3 (150-450); RBC Distribution Width CV 13.3 % (11.6-14.6); RBC Distribution Width SD 46.1 fl (35.1-43.9); Red Blood Count 4.07 M/mm3 (4.6-6.2)
[2024-06-22 06:22] LABS: Differential Indicated SCAN CRITERIA MET; White Blood Count 33.2 K/mm3 (4.4-11.0)
[2024-06-22 06:44] LABS: Anion Gap 7 (5-15); BUN 15 mg/dL (7-18); Chloride 105 mmol/L (98-107); Creatinine, Serum 1.25 mg/dL (0.70-1.30); EST Glomerular Filtration Rate 59 mL/min (>60); Est Glom Filt Rate - Afr Amer 71 mL/min (>60); Estimated Creatinine Clearance 62.79 ml/min; Glucose 118 mg/dL (74-106); Potassium 3.9 mmol/L (3.5-5.1); Sodium Level 139 mmol/L (136-145)
[2024-06-22] MEDS: Multivitamins,Therapeutic Tablet 1 TABLET PO (07:26)
[2024-06-22] MEDS: Pantoprazole Sodium 40 MG Tablet PO (07:30)
[2024-06-22] MEDS: hydroCHLOROthiazide 12.5mg 12.5 MG PO (07:31)
[2024-06-22] MEDS: Aspirin 81 MG TAB.CHEW PO (07:31)
[2024-06-22] MEDS: Tamsulosin HCl 0.4 MG Capsule PO (07:31)
[2024-06-22] MEDS: Lisinopril 20 MG Tablet PO (07:31)
[2024-06-22] MEDS: Clopidogrel Bisulfate 75 MG Tablet PO (07:31)
[2024-06-22] MEDS: Isosorbide Mononitrate 60 MG Tablet PO (07:31)
[2024-06-22] MEDS: Enoxaparin 40 MG/0.4 ML Syringe SC (07:32)
[2024-06-22 07:40] LABS: Differential Comment SCANNED; Platelet Estimate MOD DEC (ADEQ)
[2024-06-22 07:52] VITALS: BP 170/108; PULSE 85; RESP 16; TEMP 37.1; O2SAT 95
[2024-06-22 08:53] VITALS: BMI 34.7
--- NOTE | 2024-06-22 10:13 | CASEMGMT ---
SW met with patient. Introduced self and role at [facility]. Patient stated he is agreeable to going to assisted living. Patient's friend Morena is helping with this. SW let patient know that yesterday Morena was asking about [facility] and [facility]. Patient was agreeable to either of these facilities. Patient was agreeable to SW talking with Morena to finalize plans. AMALIA called Yolanda at [facility] and left her a voice mail asking about assisted living room availability. SW called patient's friend and POA Morena. AMALIA introduced self and role at [facility]. Morena felt patient going to assisted living for respite would be a good start. AMALIA told her [facility] has availability, but [facility] has not called AMALIA back yet. [facility] would likely be the first choice and then [facility]. AMALIA will work on finding out availability at [facility] and let her know. AMALIA told Morena the physician would like to discharge patient once a safe plan is put in place. Elen Miner DIRECTOR OF CAREER SERVICES MAJO
--- NOTE | 2024-06-22 10:41 | CASEMGMT ---
SW did send a referral for AL to [facility] via [facility]. Await response. Elen Miner ELECTROTYPER APPRENTICE MAJO
--- NOTE | 2024-06-22 11:24 | CASEMGMT ---
AMALIA received notification from [facility] that they do not have any availability in the AL. AMALIA called Morena, patient's POA and let her know this information. Morena said to go with [facility]. AMALIA told Omrena AMALIA will call [facility] and ask that they deckhand sponge boat her a call. AMALIA called [facility] and spoke with Ras in admissions. AMALIA explained situation. Ras asked that AMALIA fax clinicals so he can review patient. Ras also said he will contact Morena, patient's POA regarding finances. AMALIA faxed clinical information to [facility]. Elen KASPER
[2024-06-22] MEDS: Ceftriaxone 2 GM in 0.9% Normal Saline (50mL MB+) 50 ML IV (13:06)
--- NOTE | 2024-06-22 13:28 | CASEMGMT ---
SW received a phone call from [facility] and they should be able to take patient, but not until tomorrow. SW will have to complete their H&P and physician will need to sign. They were going to reach out to Morena regarding finances. Elen KASPER
--- NOTE | 2024-06-22 13:37 | PCM.PN.ID ---
Physical Exam Narrative Feeling fine, no fever, no headache Const alert and no apparent distress General Appearance: cooperative Resp normal air movement and clear to auscultation bilaterally Cardio regular rate and regular rhythm GI soft to palpation, non-tender and non-distended Skin no rashes or lesions noted ID ID: Route of nutrition/ use of supplements: [] Nutritional Intake: [] IV Site: [] [place] Catheter: [] Assessment & Plan Assessment/Plan (1) Altered mental status: PLAN: Mental status improved since admit. Leukocytosis and KIET improved. No fever, no headache, and no neck pain with rapid improvement in his confusion, so low suspicion for meningitis. Neuro is following. UA was neg, Ucx with some staph epi. On ceftriaxone, day 5 of abx, will stop today. Will follow (2) Leukocytosis: (3) KIET (acute kidney injury): (4) Chronic lymphocytic leukemia:
--- NOTE | 2024-06-22 14:18 | PN_ITS ---
Subjective Subjective Paient seen and examined. He had no active complaints. He was eating breakfast. Patient however still has some underlying confusion as he was pouring his syrup on his pancakes because he thought it was syrup. He has remained hemodynamically stable. Objective Data Objective Data Vital Signs: Vital Signs Temp Pulse Resp BP Pulse Ox O2 Del Method 98.8 F 85 16 170/108 H 95 Room Air 06/22/24 07:52 06/22/24 07:52 06/22/24 07:52 06/22/24 07:52 06/22/24 07:52 06/22/24 07:52 Oxygen Delivery Method Room Air Weight: 263 lb 10.766 oz Body Mass Index (BMI) 34.7 Intake & Output: Intake and Output for Last 24 Hours 06/20/24 06/21/24 06/22/24 23:59 23:59 23:59 Intake Total 2352 / 2712 2412 / 2412 50 / 50 Output Total 2325 / 2775 2450 / 2450 1150 / 1150 Balance 27 / -63 -38 / -38 -1100 / -1100 Lab / Micro Data 06/22/24 05:47 06/22/24 05:47 Labs: Laboratory Results - last 24 hr 06/18/24 16:35: Diff Path Review Reviewed 06/19/24 06:15: Diff Path Review Reviewed 06/20/24 04:35: Diff Path Review Reviewed 06/21/24 05:24: Diff Path Review Reviewed 06/22/24 05:47: WBC 33.2 H*, RBC 4.07 L, Hgb 12.9 L, Hct 38.8 L, MCV 95.3 H, MCH 31.7, MCHC 33.2, RDW Std Deviation 46.1 H, RDW Coeff of Andrey 13.3, Plt Count 86 L , MPV 9.6, Immature Gran % (Auto) 0.200, Neut % (Auto) 13.0 L, Lymph % (Auto) 85.0 H, [place] % (Auto) 1.4, Eos % (Auto) 0.2, Baso % (Auto) 0.2, Absolute Neuts (auto) 4.3, Absolute Lymphs (auto) 28.17 H, Nucleated RBC % 0, Differential Comment SCANNED, Diff Path Review March, Platelet Estimate MOD DEC, Sodium 139, Potassium 3.9, Chloride 105, Carbon Dioxide 27.0, Anion Gap 7, BUN 15, Creatinine 1.25, Estim Creat Clear Calc 62.79, Est GFR (MDRD) Af Amer 71, Est GFR (MDRD) Non-Af 59 L, BUN/Creatinine Ratio 12.0, Glucose 118 H, Calcium 9.0 Micro: Microbiology 06/18/24 16:50 Blood Culture (Wb) - Anticubital Left Blood Culture - Preliminary No growth in 48 hours. 06/18/24 18:30 Urine, Clean Catch Urine Culture - Final Staphylococcus epidermidis Rhythm Strip Rhythm Strip: Sinus Rhythm Rate: 80 Ectopy: None Physical Exam Const alert and no apparent distress Constitutional Narrative: flat affect, confused General Appearance: cooperative and comfortable HEENT normocephalic, head/scalp atraumatic, hearing grossly normal bilaterally, nasal mucous membranes and turbinates normal, moist oral mucous membranes and oropharynx normal Eyes PERRL, EOMs intact bilaterally and conjunctivae normal Neck full ROM, no lymphadenopathy, supple and no JVD Lymph Lymphatic: no lymphadenopathy noted and no lymphedema noted Chest inspection of chest normal Resp normal respiratory effort, normal air movement, no use of accessory muscles and clear to auscultation bilaterally Resp Narrative: on room air. Cardio regular rate, regular rhythm, S1 normal heart sound, S2 normal heart sound, no murmurs and peripheral pulses 2+ throughout GI normal to inspection, nondistended, normoactive bowel sounds, soft to palpation, non-tender and non-distended Back/Spine normal ROM Extremity normal to inspection, full ROM, normal capillary refill, no clubbing, cyanosis or edema, no calf tenderness and no pedal edema General Extremity: no tenderness to palpation of joints or extremities Skin no rashes or lesions noted Skin Narrative: erythematous rash over upper torso and upper back concerning for red man syndrome has largely resolved General Skin Exam: no breakdown Neuro CN's II-XII intact bilaterally, moves all extremities, no focal motor deficits, no sensory deficits noted and deep tendon reflexes 2+ bilaterally Speech: speech normal Motor Exam: strength 5/5 throughout and general weakness Psych Psych Narrative: confused Mood & Affect: flat affect Assessment & Plan Assessment/Plan (1) Altered mental status: (2) Sepsis: PLAN: Plan #Acute encephalopathy * largely resolved, though he has episodes of confusion requiring doses of IM haldol * CT of the brain was negative. * SOC teleneurology was consulted and was concerned about meningitis versus encephalitis in light of patient's altered mental status and leukocytosis. * MRI of the brain showed no evidence of acute or subacute ischemic infarct or remote cortical based ischemic infarct which appeared to have progressed. * wbc still remains elevated at 31, and is mainly lymphocyte predominant * Blood cultures negative after 48 hours. * Neurology on board. Per neurology, depending on MRI results, may require LP. * Kernig's and Brudzinski's were negative. Patient is afebrile and has no neck pain. He does have a history of CLL. * urine cultures growing staph epidermidis * Hematology consulted and think the elevated white cell count is all due to the CLL. ID on board and antibiotics narrowed down to IV ceftriaxone for short course. * #Probable red man syndrome: Will DC vancomycin as rash is quite diffuse. Rash largely resolved #Elevated creatinine: resolved. Cr is 1.25. #History of CAD s/p CABG: On aspirin Plavix and statin #Hypertension: On lisinopril and hydrochlorothiazide. IV hydralazine as needed #GERD: On PPI #BPH with obstructive symptoms: On Flomax #History of CLL: * His WBC was markedly elevated but has trended down. * However it is lymphocyte predominant. * WBC today is 33. Hematology consulted and thinks this is all due to his underlying CLL. Patient used to follow up with Dr Smith. * To follow up with his oncologist on outpatient basis. * #Thrombocytopenia: Platelets are 86 today. He has chronic thrombocytopenia. Will monitor. Du prophylaxis: SCDs. Disposition: Will benefit from placement. Case management on board. Charges/Coding Visit Charges Inpatient E&M: [id number] Subs Hosp L2
--- NOTE | 2024-06-22 14:53 | NURSING ---
Report received from Ana Martinez RN. This RN is taking over pt care at this time.
[2024-06-22 15:02] VITALS: BP 139/89; PULSE 99; RESP 18; TEMP 36.9; O2SAT 96
[2024-06-22 22:06] VITALS: BP 159/85; PULSE 83; RESP 18; TEMP 36.6; O2SAT 97
[2024-06-22] MEDS: Atorvastatin Calcium 40 MG Tablet PO (22:11)
[2024-06-23 03:13] VITALS: BP 145/85; PULSE 75; RESP 18; TEMP 36.8; O2SAT 93
[2024-06-23 06:58] LABS: Absolute Lymphocyte Count 30.91 X10^3/uL (0.83-4.51); Absolute Neutrophil Count 4.1 X10^3/uL (2.0-7.7); Basophil# 0.09 X10^3/uL; Basophil% 0.3 % (0-1); Eosinophil# 0.23 X10^3/uL; Eosinophils% 0.6 % (0-5); Hematocrit 40.2 % (40-54); Hemoglobin 13.4 g/dL (13.0-16.5); Lymphocyte # 30.91 X10^3/ul (0.83-4.51); Lymphocyte % 86.5 % (19-41); Mean Corp Hgb Conc 33.3 g/dL (32-36); Mean Corpuscular Hgb 31.7 pg (27.0-32.0); Mean Platelet Vol. 9.6 fl (6.2-12.0); Monocyte# 0.38 X10^3/uL; Monocyte% 1.1 % (0-10); NRBC Flagged by Analyzer 0 % (0-5); Neutrophil # 4.08 X10^3/uL (2.7-7.7); Neutrophil % 11.3 % (47-70); POSITIVE COUNT YES; POSITIVE DIFFERENTIAL YES; POSITIVE MORPHOLOGY YES; Platelet Count 81 K/mm3 (150-450); RBC Distribution Width CV 13.4 % (11.6-14.6); RBC Distribution Width SD 46.5 fl (35.1-43.9); Red Blood Count 4.23 M/mm3 (4.6-6.2); White Blood Count 35.8 K/mm3 (4.4-11.0)
[2024-06-23 07:03] LABS: Differential Indicated SCAN CRITERIA MET
[2024-06-23 07:29] LABS: Smudge Cells 1+
[2024-06-23 07:43] LABS: Anion Gap 5 (5-15); BUN 18 mg/dL (7-18); Calcium,Total 8.7 mg/dL (8.5-10.1); Chloride 105 mmol/L (98-107); Creatinine, Serum 1.29 mg/dL (0.70-1.30); EST Glomerular Filtration Rate 57 mL/min (>60); Est Glom Filt Rate - Afr Amer 69 mL/min (>60); Estimated Creatinine Clearance 60.84 ml/min; Glucose 116 mg/dL (74-106); Potassium 3.7 mmol/L (3.5-5.1); Sodium Level 139 mmol/L (136-145)
[2024-06-23 09:03] VITALS: BP 153/95; PULSE 82; RESP 18; TEMP 36.9; O2SAT 96
[2024-06-23] MEDS: Enoxaparin 40 MG/0.4 ML Syringe SC (09:03)
[2024-06-23] MEDS: Aspirin 81 MG TAB.CHEW PO (09:03)
[2024-06-23] MEDS: Pantoprazole Sodium 40 MG Tablet PO (09:03)
[2024-06-23] MEDS: Isosorbide Mononitrate 60 MG Tablet PO (09:04)
[2024-06-23] MEDS: Lisinopril 20 MG Tablet PO (09:04)
[2024-06-23] MEDS: Multivitamins,Therapeutic Tablet 1 TABLET PO (09:04)
[2024-06-23] MEDS: hydroCHLOROthiazide 12.5mg 12.5 MG PO (09:04)
[2024-06-23] MEDS: Clopidogrel Bisulfate 75 MG Tablet PO (09:04)
--- NOTE | 2024-06-23 11:07 | DS.PCM_ITS ---
Providers Date of Admission: 06/18/24 Date of Discharge: 06/23/24 Primary Care Physician: Dr. Opal Javier MD Consultations 06/18/24 20:36 Teleneurology [Consult: Tele-Neurology] Routine Consulting Provider: [facility] Reason for Consult: AMS, concern for CVA vs meningitis EMERGENT Consult: No MD Notified: Yes Date Notified: 06/18/24 Time Notified: 22:30 Method of Notification: Answering Service Nursing Unit Staff Notify [facility] of Tele-Neurology Consult: Yes 06/19/24 11:59 Consult: Infectious Disease Routine Consulting Provider: Yan Guerra Reason for Consult: leucocytosis, sepsis EMERGENT Consult: No MD Notified: Yes Date Notified: 06/21/24 Time Notified: 06:47 Method of Notification: Text 06/21/24 12:06 Consult: Oncology/Hematology Routine Consulting Provider: [facility] ([facility]) Reason for Consult: leucocytosis, history of CLL EMERGENT Consult: No MD Notified: Yes Date Notified: 06/21/24 Time Notified: 12:06 Method of Notification: Text Reason For Visit: CVA R/O, CONCERN FOR SEPSIS Diagnosis Discharge Diagnosis (1) Altered mental status: Status: Acute Code(s): R41.82 - Altered mental status, unspecified (2) Sepsis: Status: Acute Code(s): A41.9 - Sepsis, unspecified organism Plan #Acute encephalopathy * largely resolved, though he has episodes of confusion requiring doses of IM haldol * CT of the brain was negative. * [facility] was consulted and was concerned about meningitis versus encephalitis in light of patient's altered mental status and leukocytosis. * MRI of the brain showed no evidence of acute or subacute ischemic infarct or remote cortical based ischemic infarct which appeared to have progressed. * wbc still remains elevated at 31, and is mainly lymphocyte predominant * Blood cultures negative after 48 hours. * Neurology on board. Per neurology, depending on MRI results, may require LP. * Kernig's and Brudzinski's were negative. Patient is afebrile and has no neck pain. He does have a history of CLL. * urine cultures growing staph epidermidis * Hematology consulted and think the elevated white cell count is all due to the CLL. ID on board and antibiotics narrowed down to IV ceftriaxone for short course. * #Probable red man syndrome: Will DC vancomycin as rash is quite diffuse. Rash largely resolved #Elevated creatinine: resolved. Cr is 1.25. #History of CAD s/p CABG: On aspirin Plavix and statin #Hypertension: On lisinopril and hydrochlorothiazide. IV hydralazine as needed #GERD: On PPI #BPH with obstructive symptoms: On Flomax #History of CLL: * His WBC was markedly elevated but has trended down. * However it is lymphocyte predominant. * WBC today is 33. Hematology consulted and thinks this is all due to his underlying CLL. Patient used to follow up with Dr Smith. * To follow up with his oncologist on outpatient basis. * #Thrombocytopenia: Platelets are 86 today. He has chronic thrombocytopenia. Will monitor. Du prophylaxis: SCDs. Disposition: Will benefit from placement. Case management on board. Medications at Discharge Home Medications tamsulosin 0.4 mg capsule 0.4 mg PO BID #180 caps 12/02/22 isosorbide mononitrate 60 mg tablet,extended release 24 hr 60 mg PO DAILY #90 tabs 12/04/23 lisinopril 20 mg-hydrochlorothiazide 12.5 mg tablet 1 tab PO DAILY Pt lost bottle: please charge fischer tucker #90 tabs 12/29/23 clopidogrel 75 mg tablet (Plavix) 75 mg PO DAILY #90 tabs 02/06/24 tramadol 50 mg tablet 50 mg PO BID PRN pain #60 tabs 05/31/24 acetaminophen 650 mg tablet,extended release (8 Hour Pain Reliever) 650 mg PO Q8H PRN pain 06/19/24 ibuprofen 400 mg tablet (IBU) 400 mg PO Q4H pain 06/19/24 sennosides 8.6 mg-docusate sodium 50 mg tablet (Stool Softener-Laxative) 1 tab- cap PO QODAY PRN constipation 06/19/24 Hospital Course Operations None Procedures None Summary of Care Provided Minutes Spent on Discharge: 45 Hospital Course: Patient is an 78-year-old male with a past medical history as outlined who was admitted through the ED on 06/18/2024 with a complaint of syncope whilst at the [facility] on the day of admission. He had a syncopal episode while was there and EMS was called. When they arrived, patient was awake and alert but somewhat confused. They noticed that patient had mismatching shoes on and to watch his on his left wrist. He lived at home alone. On arrival in the ED he was alert but confused. NIH stroke scale was 6 so stroke alert was called. CT of the brain and CT of the head and neck were unremarkable. [facility] reviewed patient and did not think he was a candidate for tenecteplase. His NIH stroke scale went down to 0. He was hypotensive on arrival and WBC was also elevated at 46,000 concerning for sepsis. He was therefore hydrated with fluid bolus at 30 cc/kg and his blood pressure did improve a bit. Was noted to have a history of CLL and is leukocytosis was predominantly lymphocytic. He was started on presumptive antibiotics for possible meningitis namely IV vancomycin and acyclovir as well as meropenem. Creatinine was also elevated so he was treated for KIET on CKD stage II hydrated with fluids. MRI of the brain showed no acute intracranial pathology. ID was also consulted and felt there was low suspicion for meningitis as patient did not have any fever or neck pain and can exam present skin signs were negative. Blood cultures and urine cultures were also negative. Antibiotics were therefore narrowed down to ceftriaxone. Neurology was also consulted. Due to persistently elevated white cell count which was thought to be due to his chronic lymphocytic leukemia, oncology was consulted. Oncology reviewed patient and felt that indeed his elevated white cell count was due to his CLL. Patient had been following up with Dr. Mckenna of [facility] oncology for about 10 years and plan was for him to follow-up with oncology on outpatient basis. Patient worked with physical therapy but still had some baseline confusion and so plan was for him to go to assisted living facility. Patient was discharged to assisted living facility on 06/23/2024. He is follow- up with his PCP within 1 to 2 weeks. Of note, patient did develop a rash in response to vancomycin and was concern for red man syndrome so vancomycin was discontinued and he was placed on linezolid and the ID DC'd antibiotics. Patient seen and examined prior to discharge. He had no complaints and had an uneventful night. Review of symptoms otherwise negative. Labs and vitals reviewed. Medication reviewed and reconciled. Physical Exam Const alert and no apparent distress Constitutional Narrative: flat affect, episodic confusion General Appearance: cooperative and comfortable Orientation / Consciousness: awake HEENT normocephalic, head/scalp atraumatic, hearing grossly normal bilaterally, nasal mucous membranes and turbinates normal, moist oral mucous membranes and oropharynx normal Mouth: oral and palatal mucosa normal Eyes PERRL, EOMs intact bilaterally and conjunctivae normal Neck full ROM, no lymphadenopathy, supple and no JVD Lymph Lymphatic: no lymphadenopathy noted and no lymphedema noted Chest inspection of chest normal Resp normal respiratory effort, normal air movement, no use of accessory muscles and clear to auscultation bilaterally Resp Narrative: on room air. Cardio regular rate, regular rhythm, S1 normal heart sound, S2 normal heart sound, no murmurs and peripheral pulses 2+ throughout GI normal to inspection, nondistended, normoactive bowel sounds, soft to palpation, non-tender and non-distended Back/Spine normal ROM Extremity normal to inspection, full ROM, normal capillary refill, no clubbing, cyanosis or edema, no calf tenderness and no pedal edema General Extremity: no tenderness to palpation of joints or extremities Skin no rashes or lesions noted General Skin Exam: no breakdown Neuro CN's II-XII intact bilaterally, moves all extremities, no focal motor deficits, no sensory deficits noted and deep tendon reflexes 2+ bilaterally Sensorium / Orientation: awake and alert Speech: speech normal Motor Exam: strength 5/5 throughout and general weakness Psych thought process normal, cooperative and affect normal Psych Narrative: confused Appearance: appropriate Mood & Affect: flat affect Weight / BMI Weight Weight: 263 lb 10.766 oz Body Mass Index (BMI) 34.7 ABG / Lab / Microbiology Data 06/23/24 06:30 06/23/24 06:30 Laboratory: Laboratory Results - last 24 hr 06/19/24 06:15: Diff Path Review Reviewed 06/23/24 06:30: WBC 35.8 H*, RBC 4.23 L, Hgb 13.4, Hct 40.2, MCV 95.0 H, MCH 31.7, MCHC 33.3, RDW Std Deviation 46.5 H, RDW Coeff of Andrey 13.4, Plt Count 81 L , MPV 9.6, Immature Gran % (Auto) 0.200, Neut % (Auto) 11.3 L, Lymph % (Auto) 86.5 H, [place] % (Auto) 1.1, Eos % (Auto) 0.6, Baso % (Auto) 0.3, Absolute Neuts (auto) 4.1, Absolute Lymphs (auto) 30.91 H, Nucleated RBC % 0, Differential Comment , Diff Path Review May foll, Smudge Cells 1+ H, Sodium 139, Potassium 3.7, Chloride 105, Carbon Dioxide 29.0, Anion Gap 5, BUN 18, Creatinine 1.29, Estim Creat Clear Calc 60.84, Est GFR (MDRD) Af Amer 69, Est GFR (MDRD) Non-Af 57 L, BUN/Creatinine Ratio 14.0, Glucose 116 H, Calcium 8.7 Microbiology: Microbiology 06/18/24 16:50 Blood Culture (Wb) - Anticubital Left Blood Culture - Preliminary No growth in 48 hours. 06/18/24 18:30 Urine, Clean Catch Urine Culture - Final Staphylococcus epidermidis D/C Instructions Discharge Diet: Low fat / Low cholesterol Discharge Activity: Return to Normal Activity Weight Bearing Status: Weight bearing as tolerated Call your doctor if you observe: Fever of 101 or Higher, Shortness of breath, Dizziness, Swelling in the ankles, Chest pain and Increased palpitations (irregular heartbeat) Meaningful Use Info Meaningful Use Meaningful Use Diagnoses (Choose all that apply): None applicable Ischemic Stroke Statin Dosing Therapy Reference: STATIN DOSE THERAPY REFERENCE: * Patients > 75 years receive moderate or high dose statin therapy. * Patients 75 years or YOUNGER should receive HIGH intensity statin dose unless contraindicated. You will be required to document reason for non-treatment if statin daily dose does not meet guidelines. HIGH DOSE STATIN THERAPY DAILY Atorvastatin > than or = to 40 mg Rosuvastatin > than or = to 20 mg Amlodipine + Atorvastatin > than or = to 2.5/40 mg Ezetimibe + Simvastatin 10/80 mg Simvastatin 80mg Discharge Plan Admission Admit Date/Time: 06/18/24 19:36 Primary Reason for Your Visit: altered mental status Attending Provider: Wendy Sheth Primary Care Provider: Opal Javier Consulting Providers: Niko Ibrahim; John Cabrera; Radha Hurtado; Yoselyn Velasquez; Siomara Butler; Randy Roy; Chrissie Tompkins; Rd Page; Sina Arvizu; Kaushal Gee; Vanesa Tello; Earl Infante; Shayla Silver; George Melendez; Kevynanne Butts; Zak Dubon; Gwyn Chavira; Jorge Santana; Nancy Singh; Shyla Sutherland; Michael Polanco; Yan Guerra; Terence Clifton; Dillon Hancock; Funmi Hernandez; Yan Bautista; Lino León; John Dinh; Perez Seo; Ciara Menjivar IT SECURITY PROJECT MANAGER Instructions Patient Instructions: ED Confusion Discharge Orders/Prescriptions Prescriptions: Continued sennosides-docusate sodium [Stool Softener-Laxative] 8.6-50 mg tablet 1 tab-cap PO QODAY PRN (Reason: constipation) ibuprofen [IBU] 400 mg tablet 400 mg PO Q4H acetaminophen [8 Hour Pain Reliever] 650 mg tablet extended release 650 mg PO Q8H PRN (Reason: pain) tamsulosin 0.4 mg capsule 0.4 mg PO BID Qty: 180 3RF isosorbide mononitrate 60 mg tablet extended release 24 hr 60 mg PO DAILY Qty: 90 3RF lisinopril-hydrochlorothiazide 20-12.5 mg tablet 1 tab PO DAILY Qty: 90 3RF clopidogrel [Plavix] 75 mg tablet 75 mg PO DAILY Qty: 90 3RF tramadol 50 mg tablet 50 mg PO BID PRN (Reason: pain) Qty: 60 0RF Referrals / Follow Up: Opal Javier MD [Primary Care Provider] - Within 2 Weeks Chance Mclaughlin DO [Med Staff - Active Staff] - Within 2 Weeks (follow up for CLL) Disposition Disposition (needs filled in before D/C Order can be placed): Assisted Living Charges/Coding Visit Charges Inpatient E&M: 96095 Disch Hosp >30min
--- NOTE | 2024-06-23 11:13 | PHA.DC_ITS ---
Pharmacy [place] Med Reconciliation Pharmacy Service has performed discharge medication reconciliation for this patient. The patient's discharge medication list was reviewed for discrepancies and discrepancies were resolved. Medications at Discharge Home Medications tamsulosin 0.4 mg capsule 0.4 mg PO BID #180 caps 12/02/22 isosorbide mononitrate 60 mg tablet,extended release 24 hr 60 mg PO DAILY #90 tabs 12/04/23 lisinopril 20 mg-hydrochlorothiazide 12.5 mg tablet 1 tab PO DAILY Pt lost dimitri e: please charge fischer tucker #90 tabs 12/29/23 clopidogrel 75 mg tablet (Plavix) 75 mg PO DAILY #90 tabs 02/06/24 tramadol 50 mg tablet 50 mg PO BID PRN pain #60 tabs 05/31/24 acetaminophen 650 mg tablet,extended release (8 Hour Pain Reliever) 650 mg PO Q8H PRN pain 06/19/24 ibuprofen 400 mg tablet (IBU) 400 mg PO Q4H pain 06/19/24 sennosides 8.6 mg-docusate sodium 50 mg tablet (Stool Softener-Laxative) 1 tab- cap PO QODAY PRN constipation 06/19/24
--- NOTE | 2024-06-23 11:54 | NURSING ---
Called report to Marisa DOW at [facility]
--- NOTE | 2024-06-23 12:00 | CASEMGMT ---
Addendum entered by Elen Miner 06/23/24 12:08: AMALIA also spoke with Yris Good patient's BALANCE TRUER-C that visits him at home and let her know patient is going to [facility] today for a 30 day respite. Elen KASPER Original Note: AMALIA faxed d/c instructions and Mikayla's Plan of care to [facility]. AMALIA called Sharyn at [facility] and she asked that SW email them to her. Patient is okay to come today anytime. AMALIA called [facility] and arranged for patient to get picked up at via wheelchair van. AMALIA notified patient, RN, and secretary book keeper. AMALIA called Sharyn at [facility] and let her know about picker box operator time. AMALIA called patient's friend Morena and notified her. Mroena said they took all of his stuff to [facility] and he will be in room 143. AMALIA asked Morena if they took patient's walker to [facility]. They did not, but Morena will call Irene and see if she could take it to [facility] today. Plan: d/c to [facility] for respite. Elen KASPER
[2024-06-23 12:55] VITALS: BP 137/86; PULSE 102; RESP 18; TEMP 36.7; O2SAT 97
[2024-06-23 13:42] LABS: Pathologist Review Reviewed
[2024-06-23 13:45] LABS: Pathologist Review Reviewed
--- NOTE | 2024-06-24 12:23 | CASEMGMT ---
Addendum entered by Elen Miner 06/24/24 14:58: AMALIA made a referral to [facility]. Elen KASPER Original Note: AMALIA received a call from patient's POA Morena. Morena said patient lasted 6 hours at [facility]. He called her and she picked him up and took him home. AMALIA will make a referral to [facility]. Elen KASPER
== END 2024-06-23 13:00 | disposition home or self-care (01) | DRG 72 ==
LOC: ED 20:12 → PCU 20:21
PROVIDERS: Admitting Provider Hospitalist; Emergency Provider Emergency Medicine; PCP Internal Medicine; Visit Provider Student in an Organized Health Care Education/Training Program
DX: G93.40 Encephalopathy, unspecified (principal); D69.6 Thrombocytopenia, unspecified; I12.9 Hypertensive chronic kidney disease with stage 1 through stage 4 chronic kidney disease, or unspecified chronic kidney disease; E66.9 Obesity, unspecified; T80.89XA Other complications following infusion, transfusion and therapeutic injection, initial encounter; K21.9 Gastro-esophageal reflux disease without esophagitis; I25.10 Atherosclerotic heart disease of native coronary artery without angina pectoris; E78.5 Hyperlipidemia, unspecified; N18.2 Chronic kidney disease, stage 2 (mild); I25.2 Old myocardial infarction; L27.0 Generalized skin eruption due to drugs and medicaments taken internally; T36.8X5A Adverse effect of other systemic antibiotics, initial encounter; N40.1 Benign prostatic hyperplasia with lower urinary tract symptoms; R55 Syncope and collapse; R45.6 Violent behavior; Z95.1 Presence of aortocoronary bypass graft; Z95.5 Presence of coronary angioplasty implant and graft; Z98.1 Arthrodesis status; Z68.34 Body mass index [BMI] 34.0-34.9, adult; Z79.02 Long term (current) use of antithrombotics/antiplatelets; Z79.82 Long term (current) use of aspirin; Z79.899 Other long term (current) drug therapy; Z85.6 Personal history of leukemia; Z87.891 Personal history of nicotine dependence
CPT/HCPCS: 36415; 70450; 70496; 70498; 70553; 71045; 80048; 80061; 80307; 81001; 82962; 83036; 83605; 84443; 84484; 85025; 85610; 85730; 87040; 87077; 87086; 87088; 87186; 92507; 92523; 93005; 93306; 94762; 97116; 97162; 97166; 97530; 97535; 97802; 97803; 99284; A9575; J2020; J2185; Q9957; Q9967; A4216; C8929; J0696

== ENCOUNTER 2024-06-26 13:08 | Observation (INO) | payer MEDICARE, SELFPAY ==
[2024-05-12 14:06] VITALS: BMI 36.0
[2024-06-26] VITALS (26 sets, daily range): BP systolic 55–138; BP diastolic 32–97; PULSE 66–106; RESP 14–23; TEMP 35.8–36.7; O2SAT 93–99; BMI 34.9; BMI 34.4
--- NOTE | 2024-06-26 13:45 | RAD_ITS ---
EXAM: XR CHEST, 1 VIEW CLINICAL INDICATION: hypotension TECHNIQUE: Frontal view of the chest. COMPARISON: XR Chest dated 06/18/2024 FINDINGS: LUNGS AND PLEURAL SPACES: Residual mild infiltration, atelectasis or scarring at the lung bases. HEART: Surgical changes of coronary artery bypass graft (CABG). Normal heart size. MEDIASTINUM: No mediastinal or hilar mass. BONES/JOINTS: No acute abnormality. VASCULATURE: Dilated aortic arch again seen suggesting underlying aneurysm. RAD/Chest 1 View (Portable) IMPRESSION: No interval change. Electronically Signed: Santi Valle MD at 15:18 EDT ,
--- NOTE | 2024-06-26 13:45 | EKG12_ITS ---
Test Reason : SYNCOPE Blood Pressure : / mmHG Vent. Rate : 083 BPM Atrial Rate : 083 BPM P-R Int : 144 ms QRS Dur : 100 ms QT Int : 396 ms P-R-T Axes : 056 035 030 degrees QTc Int : 465 ms Normal sinus rhythm Normal ECG Confirmed by Garett Tony ([id number]), acquisition editor KASHMIR BRIONES ([id number]) on 06/28/2024 2:18:47 PM Referred By: [facility] Confirmed By:Garett Tony
--- NOTE | 2024-06-26 13:50 | EX.ED.DYSGE1 ---
HPI History of Present Illness Chief Complaint: Syncope Detail of Chief Complaint: Dizziness and near syncope Informant: patient Narrative Narrative: Patient presents to the emergency department complaint of dizziness and feeling like he is in a pass out. Patient states that he was just discharged from the hospital 4 days ago where he was treated for UTI. Patient since being home had been feeling relatively well. This morning he decided to cook some breakfast and then he was cleaning up and sat down at his desk. While sitting he became nauseated and then things started spinning around and round fell like he was in a pass out. Patient sat down and did not actually pass out. He called for a friend. Presents to the ER for evaluation. He denies chest pain or shortness of breath. He does have history of coronary artery disease. He denies recent illness. [facility] Medical History Primary osteoarthritis, left shoulder Primary osteoarthritis, right shoulder Left shoulder pain Right shoulder pain Wears partial dentures Wears glasses Depression Alcohol use Ambulates with cane Arthritis Prostate disease Anemia Excessive bleeding Easy bruising Injury of back Back pain History of leukemia Injury of head and neck Gastric reflux Former smoker Shortness of breath on exertion History of pain when walking History of edema History of echocardiogram Normal stress echocardiogram History of stress test Cardiology follow-up encounter History of heart attack Thrombocytopenia Old inferior wall myocardial infarction (1990) Abdominal aortic aneurysm (AAA) Atherosclerotic heart disease of [place] coronary artery without angina pectoris Atherosclerosis of coronary artery bypass graft without angina pectoris Chronic lymphocytic leukemia Cervical stenosis of spinal canal (12/10/19) Incontinence Obesity Erectile dysfunction Peptic ulcer Carotid artery stenosis without cerebral infarction Hyperlipidemia Essential hypertension Home Medications ?Medication ?Instructions ?Recorded ?Last Taken ?Type tamsulosin 0.4 mg capsule 0.4 mg PO BID #180 caps 12/02/22 Unknown Rx isosorbide mononitrate 60 mg 60 mg PO DAILY #90 tabs 12/04/23 Unknown Rx tablet,extended release 24 hr lisinopril 20 1 tab PO DAILY Pt lost bottle: 12/29/23 Unknown Rx mg-hydrochlorothiazide 12.5 mg please charge fischer tucker #90 tabs tablet clopidogrel 75 mg tablet (Plavix) 75 mg PO DAILY #90 tabs 02/06/24 Unknown Rx tramadol 50 mg tablet 50 mg PO BID PRN pain #60 tabs 05/31/24 Unknown Rx acetaminophen 650 mg 650 mg PO Q8H PRN pain 06/19/24 Unknown History tablet,extended release (8 Hour Pain Reliever) ibuprofen 400 mg tablet (IBU) 400 mg PO Q4H pain 06/19/24 Unknown History sennosides 8.6 mg-docusate sodium 1 tab-cap PO QODAY PRN constipation 06/19/24 Unknown History 50 mg tablet (Stool Softener-Laxative) Allergy/AdvReac Type Severity Reaction Status Date / Time Penicillins Allergy Hives Verified 06/26/24 13:10 vancomycin Allergy Rash Verified 06/26/24 13:10 carvedilol (From Coreg) AdvReac Intermediate Unknown Verified 06/26/24 13:10 doxycycline AdvReac Intermediate GI Verified 06/26/24 13:10 intolerance Family History Mother Cancer Father Diabetes Heart disease Hypertension Sister Diabetes Surgical History Hx of cystoscopy (~2023) History of left heart catheterization (05/17/21) History of coronary angioplasty (1990) H/O coronary artery bypass surgery (1991) History of coronary artery stent placement (05/25/21) History of cervical spinal surgery (12/20/19) History of endovascular stent graft for abdominal aortic aneurysm (AAA) (11/07/16) Social History household members: none Smoking Status: Former smoker how long ago did patient quit smoking: Quit 05/2007, smoked 1 ppd until quit. alcohol intake: current alcohol intake frequency: holidays/special occasions only substance use type: does not use caffeine: Yes Type: coffee Number of servings: 2 ROS ROS ED Review of Systems ROS Unobtainable: other Constitutional Constitutional ED: Reports lethargy; Denies chills, fever(s), sweats or weight loss Eyes Eyes: Denies blurry vision, change in vision or diplopia ENT ENT ED: Denies rhinorrhea or sore throat Cardiovascular Cardiovascular: Denies chest pain, orthopnea or racing heartbeat Respiratory/Chest Respiratory/Chest: Denies cough, dyspnea, dyspnea on exertion, orthopnea or sputum Gastrointestinal Gastrointestinal: Denies abdominal pain, diarrhea, nausea or vomiting Genitourinary Genitourinary ED: Denies dysuria, hematuria or urinary frequency Musculoskeletal Musculoskeletal: Denies arthralgias, back pain, myalgias or neck pain Integumentary Denies abscess, Abrasions or rash Neurologic Neurologic: Reports other Details: Dizziness and near syncope ; Denies headache(s) or weakness Psychiatric Psychiatric: Denies anxiety, depression or suicidal thoughts Endocrine Endocrinology: Denies polydipsia, polyphagia or polyuria Hematologic/Lymphatic Hematologic/Lymphatic: Denies easy bleeding, easy bruising or lymphadenopathy Allergic/Immunologic Allergic/Immunologic ED: Denies mouth swelling, tongue swelling or urticaria EXAM Physical Exam Const Vital Signs: 06/26/24 13:10 06/26/24 13:10 06/26/24 13:17 Temperature 97.8 F 96.4 F L Temperature Source Temporal Temporal Pulse Rate 106 H 80 Pulse Rate [Lying] Pulse Rate [Sitting (for 1 minute prior to obtaining)] Pulse Rate [Standing (for 1 minute prior to obtaining)] Respiratory Rate 18 14 Respiratory Effort Respiratory Pattern Blood Pressure 74/40 L 55/44 L 112/70 Blood Pressure [Lying] Blood Pressure [Sitting (for 1 minute prior to obtaining)] Blood Pressure [Standing (for 1 minute prior to obtaining)] Blood Pressure Mean 51 47 84 Blood Pressure Mean [Lying] Blood Pressure Mean [Sitting (for 1 minute prior to obtaining)] Blood Pressure Mean [Standing (for 1 minute prior to obtaining)] Pulse Ox 93 96 Oxygen Delivery Method Room Air Nasal Cannula Oxygen Flow Rate (L/min) 1.5 06/26/24 13:17 06/26/24 13:49 06/26/24 14:01 Temperature Temperature Source Pulse Rate 77 Pulse Rate [Lying] 74 Pulse Rate [Sitting (for 1 minute prior to obtaining)] 75 Pulse Rate [Standing (for 1 minute prior to obtaining)] Respiratory Rate 17 Respiratory Effort Normal Respiratory Pattern Normal Blood Pressure 112/70 Blood Pressure [Lying] 106/60 Blood Pressure [Sitting (for 1 minute prior to obtaining)] 92/64 Blood Pressure [Standing (for 1 minute prior to obtaining)] Blood Pressure Mean 84 Blood Pressure Mean [Lying] 75 Blood Pressure Mean [Sitting (for 1 minute prior to obtaining)] 73 Blood Pressure Mean [Standing (for 1 minute prior to obtaining)] Pulse Ox 96 Oxygen Delivery Method Nasal Cannula Oxygen Flow Rate (L/min) 1.5 06/26/24 14:17 06/26/24 14:17 06/26/24 15:00 Temperature 97.3 F L 97.3 F L 98 F Temperature Source Temporal Temporal Temporal Pulse Rate 74 73 73 Pulse Rate [Lying] Pulse Rate [Sitting (for 1 minute prior to obtaining)] Pulse Rate [Standing (for 1 minute prior to obtaining)] Respiratory Rate 20 H 18 16 Respiratory Effort Respiratory Pattern Blood Pressure 100/58 L 100/58 L 105/58 L Blood Pressure [Lying] Blood Pressure [Sitting (for 1 minute prior to obtaining)] Blood Pressure [Standing (for 1 minute prior to obtaining)] Blood Pressure Mean 72 72 73 Blood Pressure Mean [Lying] Blood Pressure Mean [Sitting (for 1 minute prior to obtaining)] Blood Pressure Mean [Standing (for 1 minute prior to obtaining)] Pulse Ox 96 96 97 Oxygen Delivery Method Nasal Cannula Nasal Cannula Room Air Oxygen Flow Rate (L/min) 1.5 1.5 06/26/24 15:00 06/26/24 16:00 06/26/24 16:00 Temperature 97.9 F Temperature Source Temporal Pulse Rate 73 86 76 Pulse Rate [Lying] Pulse Rate [Sitting (for 1 minute prior to obtaining)] Pulse Rate [Standing (for 1 minute prior to obtaining)] Respiratory Rate 16 15 16 Respiratory Effort Respiratory Pattern Blood Pressure 105/58 L 101/59 L 101/59 L Blood Pressure [Lying] Blood Pressure [Sitting (for 1 minute prior to obtaining)] Blood Pressure [Standing (for 1 minute prior to obtaining)] Blood Pressure Mean 73 73 73 Blood Pressure Mean [Lying] Blood Pressure Mean [Sitting (for 1 minute prior to obtaining)] Blood Pressure Mean [Standing (for 1 minute prior to obtaining)] Pulse Ox 99 95 99 Oxygen Delivery Method Room Air Oxygen Flow Rate (L/min) 06/26/24 16:23 Temperature Temperature Source Pulse Rate Pulse Rate [Lying] 76 Pulse Rate [Sitting (for 1 minute prior to obtaining)] 83 Pulse Rate [Standing (for 1 minute prior to obtaining)] 88 Respiratory Rate Respiratory Effort Respiratory Pattern Blood Pressure Blood Pressure [Lying] 138/97 H Blood Pressure [Sitting (for 1 minute prior to obtaining)] 96/77 Blood Pressure [Standing (for 1 minute prior to obtaining)] 90/71 Blood Pressure Mean Blood Pressure Mean [Lying] 110 Blood Pressure Mean [Sitting (for 1 minute prior to obtaining)] 83 Blood Pressure Mean [Standing (for 1 minute prior to obtaining)] 77 Pulse Ox Oxygen Delivery Method Oxygen Flow Rate (L/min) Positive well nourished and well developed General Appearance ED: well developed and NAD HEENT Reports TM's clear and moist mucous membranes normocephalic and atraumatic; Negative for trauma or tenderness Tympanic Membrane ED: Yes TM's clear Eyes PERRL and EOMs intact bilaterally General Eye ED: Negative for pale conjunctiva or scleral icterus Neck no lymphadenopathy, supple and no JVD General: Negative for tenderness Chest Wall inspection of chest normal and palpation of chest normal Chest: Negative for tenderness Resp normal respiratory effort and clear to auscultation bilaterally Effort and Inspection: Negative for respiratory distress or pain with movement Auscultation: Negative for rhonchi, wheezes or diminished lung sounds Cardio regular rate, regular rhythm, S1 normal heart sound, S2 normal heart sound and no murmurs Peripheral Pulses: pulses 2+ throughout GI normal to inspection, nondistended, normoactive bowel sounds, soft to palpation, non-tender, non-distended and no masses Back/Spine no CVA tenderness and no thoracic nor lumbar tenderness Extremity normal to inspection General Extremety ED: Negative for edema General Extremity: Negative for edema Neuro oriented x3, CN's II-XII intact bilaterally, no sensory deficits noted and gait normal Sensorium / Orientation: awake, alert, oriented to person, oriented to place and oriented to time Motor Exam: strength 5/5 throughout and strength abnormal Psych mental status grossly normal Skin no rashes or lesions noted and no wounds MDM MDM MDM Narrative Medical decision making narrative: Patient presents with dizziness and near syncope. Initial blood pressures were 70 systolic and then 50 systolic. While I am evaluating the patient and his systolic is in the low 100s. I suspect his dizziness may be due to hypotension. Unclear if patient had a vagal response. IV line will be established. EKG obtained showed a sinus rhythm with rate of 83 bpm with no acute ST segment changes. CBC with differential obtained showed an elevated white count of 60,000 with hemoglobin 14 and platelet count of 127. Chemistries unremarkable. BUN 33 and creatinine 1.76 with a troponin of 64. Urinalysis unremarkable. Patient was given a liter mostly fluid bolus. Orthostatic blood pressures were performed afterwards and he is still positive. Will order more normal saline. Will discuss with hospitalist to evaluate patient for admission. Patient does have elevated WBC count however this is due to his history of CLL. Lab Data Attestation: I reviewed the patient's lab results. Labs: Laboratory Results - last 24 hr 06/26/24 06/26/24 13:14 15:28 WBC 60.3 H* RBC 4.41 L Hgb 14.0 Hct 43.0 MCV 97.5 H MCH 31.7 MCHC 32.6 RDW Std Deviation 46.7 H RDW Coeff of Andrey 13.4 Plt Count 127 L MPV 9.8 Immature Gran % (Auto) 0.200 Neut % (Auto) 9.9 L Lymph % (Auto) 87.9 H [place] % (Auto) 1.5 Eos % (Auto) 0.5 Baso % (Auto) 0.0 Absolute Neuts (auto) 5.9 Absolute Lymphs (auto) 53.00 H Nucleated RBC % 0 Diff Path Review May foll Sodium 138 Potassium 3.7 Chloride 105 Carbon Dioxide 26.0 Anion Gap 7 BUN 33 H Creatinine 1.76 H Estim Creat Clear Calc 43.47 Est GFR (MDRD) Af Amer 48 L Est GFR (MDRD) Non-Af 40 L BUN/Creatinine Ratio 18.8 Glucose 133 H Calcium 8.7 Troponin I High Sens 64 Urine pH 5.0 Ur Specific [place] 1.020 Urine Protein 30 H Urine Glucose (UA) Normal Urine Ketones 5 H Urine Occult Blood 50 H Urine Nitrite Negative Urine Bilirubin 1 H Urine Urobilinogen 1 H Ur Leukocyte Esterase 25 H Urine RBC 0-5 SEEN Urine WBC 0-5 SEEN Ur Squamous Epith Cells 0 SEEN Urine Bacteria 0 SEEN Urine Mucus 0 SEEN Radiography Diagnostic Testing: Clinical Impression(s) from Imaging Studies Chest X-Ray 06/26/24 13:45 IMPRESSION: No interval change. Electronically Signed: Santi Valle MD at 15:18 EDT , 1 view chest x-ray obtained interpreted by myself as no evidence of infiltrate or pneumothorax or acute disease process. Radiology in agreement. EKG Initial EKG: Attestation: I personally reviewed and interpreted this EKG as follows: Comments: Sinus rhythm with ventricular rate of 83 bpm with no acute ST segment changes Discharge Plan Dx/Rx/DC Orders Clinical Impression: Dizziness, KIET (acute kidney injury), Near syncope, Orthostatic hypotension Disposition Disposition: Acute Care Hospital [facility]
[2024-06-26] MEDS: 0.9% Normal Saline (1000mL) 1,000 ML 1000 ML IV (13:55)
[2024-06-26 14:02] LABS: Absolute Neutrophil Count 5.9 X10^3/uL (2.0-7.7); Basophil# 0.03 X10^3/uL; Eosinophil# 0.32 X10^3/uL; Eosinophils% 0.5 % (0-5); Lymphocyte % 87.9 % (19-41); Mean Corp Hgb Conc 32.6 g/dL (32-36); Mean Corpuscular Hgb 31.7 pg (27.0-32.0); Mean Corpuscular Volume 97.5 fL (80-94); Mean Platelet Vol. 9.8 fl (6.2-12.0); Monocyte# 0.89 X10^3/uL; Monocyte% 1.5 % (0-10); NRBC Flagged by Analyzer 0 % (0-5); Neutrophil # 5.89 X10^3/uL (2.7-7.7); Neutrophil % 9.9 % (47-70); POSITIVE COUNT YES; POSITIVE DIFFERENTIAL YES; POSITIVE MORPHOLOGY YES; Platelet Count 127 K/mm3 (150-450); RBC Distribution Width CV 13.4 % (11.6-14.6); RBC Distribution Width SD 46.7 fl (35.1-43.9); Red Blood Count 4.41 M/mm3 (4.6-6.2); White Blood Count 60.3 K/mm3 (4.4-11.0)
[2024-06-26 14:08] LABS: Differential Indicated SCAN CRITERIA MET
[2024-06-26 14:24] LABS: Anion Gap 7 (5-15); BUN 33 mg/dL (7-18); BUN/Creat Ratio 18.8 RATIO (10-20); Calcium,Total 8.7 mg/dL (8.5-10.1); Chloride 105 mmol/L (98-107); Creatinine, Serum 1.76 mg/dL (0.70-1.30); EST Glomerular Filtration Rate 40 mL/min (>60); Est Glom Filt Rate - Afr Amer 48 mL/min (>60); Estimated Creatinine Clearance 43.47 ml/min; Glucose 133 mg/dL (74-106); Potassium 3.7 mmol/L (3.5-5.1); Sodium Level 138 mmol/L (136-145); Troponin-I HS 64 pg/mL (3.0-78.0)
[2024-06-26 15:35] LABS: Bacteria 0 SEEN /hpf (None Seen); Mucous, Urine 0 SEEN /hpf (<or=2+); Squamous Epithelial Cells - UA 0 SEEN /hpf (0-5)
[2024-06-26 15:52] LABS: Glucose, Dipstick Normal (Normal); Ketone-Dipstick 5 mg/dl (Negative); Leukocyte Esterase-Dipstick 25 /ul (Negative); Nitrite-Dipstick Negative (Negative); Occult Blood-Urine 50 /ul (Negative); Protein-Dipstick 30 mg/dl (Negative); Urine Urobilinogen 1 mg/dl (Normal)
[2024-06-26 16:08] LABS: Urine Bilirubin Dipstick 1 mg/dL (Negative)
[2024-06-26 16:16] LABS: Red Blood Cells-Urine 0-5 SEEN /hpf (0-5); White Blood Cells 0-5 SEEN /hpf (0-5)
[2024-06-26] MEDS: 0.9% Normal Saline (1000mL) 1,000 ML 999 ML IV (16:51)
--- NOTE | 2024-06-26 16:59 | NURSING ---
PCU FORTUNE DIZZINESS, ORTHOSTATIC HYPOTENSION, CLL
--- NOTE | 2024-06-26 17:53 | PCM.HP.STD ---
HPI - General General Date of Service: 06/26/24 Chief Complaint: Spinning sensation, almost passing out HPI Narrative SILVIANO GONZALEZ, is a 79-year-old male history of BPH, CAD, hypertension, CLL presented to [facility] ED 07/23/2024 with complaints of dizziness and presyncope. Discharge from hospital 4 days ago where he was treated for UTI. [place] relatively well however this morning was cooking breakfast and then sat down and he became nauseated and things started spinning around and he felt like he would pass out but no actual loss of consciousness. In the ED initial blood pressures were 70/50 patient given IV fluids however given the BP improved orthostats still positive so hospitalist contacted for admission. Patient also had creatinine of 1.76 up from 1.29 indicating KIET. Pt evaluated at bedside. He reports that since discharge he had been in his usual health until this morning when he sat down at his desk and suddenly started having the spinning sensation and felt nauseous, was able to get to his room but was worried about falling so ultimately sought help. He said the feeling is more like everything spinning around and that he can tell when it is going to happen however could not describe this well. This happened once before about a week ago around the time of his hospitalization and had not happened again since. In the ED he is not having any symptoms but is afraid to turn or move because he feels the symptoms will come back. No headache or changes in vision, no numbness, weakness, tingling or other acute or focal complaints. [facility] Medical History Primary osteoarthritis, left shoulder Primary osteoarthritis, right shoulder Left shoulder pain Right shoulder pain Wears partial dentures Wears glasses Depression Alcohol use Ambulates with cane Arthritis Prostate disease Anemia Excessive bleeding Easy bruising Injury of back Back pain History of leukemia Injury of head and neck Gastric reflux Former smoker Shortness of breath on exertion History of pain when walking History of edema History of echocardiogram Normal stress echocardiogram History of stress test Cardiology follow-up encounter History of heart attack Thrombocytopenia Old inferior wall myocardial infarction (1990) Abdominal aortic aneurysm (AAA) Atherosclerotic heart disease of [place] coronary artery without angina pectoris Atherosclerosis of coronary artery bypass graft without angina pectoris Chronic lymphocytic leukemia Cervical stenosis of spinal canal (12/10/19) Incontinence Obesity Erectile dysfunction Peptic ulcer Carotid artery stenosis without cerebral infarction Hyperlipidemia Essential hypertension Home Medications ?Medication ?Instructions ?Recorded ?Last Taken ?Type tamsulosin 0.4 mg capsule 0.4 mg PO BID #180 caps 12/02/22 Unknown Rx isosorbide mononitrate 60 mg 60 mg PO DAILY #90 tabs 12/04/23 Unknown Rx tablet,extended release 24 hr lisinopril 20 1 tab PO DAILY Pt lost bottle: 12/29/23 Unknown Rx mg-hydrochlorothiazide 12.5 mg please charge fischer tucker #90 tabs tablet clopidogrel 75 mg tablet (Plavix) 75 mg PO DAILY #90 tabs 02/06/24 Unknown Rx tramadol 50 mg tablet 50 mg PO BID PRN pain #60 tabs 05/31/24 Unknown Rx acetaminophen 650 mg 650 mg PO Q8H PRN pain 06/19/24 Unknown History tablet,extended release (8 Hour Pain Reliever) ibuprofen 400 mg tablet (IBU) 400 mg PO Q4H pain 06/19/24 Unknown History sennosides 8.6 mg-docusate sodium 1 tab-cap PO QODAY PRN constipation 06/19/24 Unknown History 50 mg tablet (Stool Softener-Laxative) Allergy/AdvReac Type Severity Reaction Status Date / Time Penicillins Allergy Hives Verified 06/26/24 13:10 vancomycin Allergy Rash Verified 06/26/24 13:10 carvedilol (From Coreg) AdvReac Intermediate Unknown Verified 06/26/24 13:10 doxycycline AdvReac Intermediate GI Verified 06/26/24 13:10 intolerance Family History Mother Cancer Father Diabetes Heart disease Hypertension Sister Diabetes Surgical History Hx of cystoscopy (~2023) History of left heart catheterization (05/17/21) History of coronary angioplasty (1990) H/O coronary artery bypass surgery (1991) History of coronary artery stent placement (05/25/21) History of cervical spinal surgery (12/20/19) History of endovascular stent graft for abdominal aortic aneurysm (AAA) (11/07/16) Social History household members: none Smoking Status: Former smoker how long ago did patient quit smoking: Quit 05/2007, smoked 1 ppd until quit. alcohol intake: current alcohol intake frequency: holidays/special occasions only substance use type: does not use caffeine: Yes Type: coffee Number of servings: 2 ROS ROS Narrative General: Denies fever/chills HENT: Denies headache, denies stuffy nose, denies sore throat EYES: Denies changes in vision Resp: Denies cough, denies shortness of breath Cardiac: Denies chest pain GI: Denies abdominal pain, denies changes in bowel, denies current nausea or vomiting : Denies changes in urination Extremity: Denies swelling MSK: Denies weakness Neuro: Denies any numbness/tingling, had spinning sensation earlier Heme: Denies any bleeding or bruising Skin: Denies rashes Psychiatric: No complaints voiced Vital Signs Vital Signs Vital Signs: 06/26/24 13:10 06/26/24 13:10 06/26/24 13:17 Temperature 97.8 F 96.4 F L Temperature Source Temporal Temporal Pulse Rate 106 H 80 Pulse Rate [Lying] Pulse Rate [Sitting (for 1 minute prior to obtaining)] Pulse Rate [Standing (for 1 minute prior to obtaining)] Respiratory Rate 18 14 Respiratory Effort Respiratory Pattern Blood Pressure 74/40 L 55/44 L 112/70 Blood Pressure [Lying] Blood Pressure [Sitting (for 1 minute prior to obtaining)] Blood Pressure [Standing (for 1 minute prior to obtaining)] Blood Pressure Mean 51 47 84 Blood Pressure Mean [Lying] Blood Pressure Mean [Sitting (for 1 minute prior to obtaining)] Blood Pressure Mean [Standing (for 1 minute prior to obtaining)] Pulse Ox 93 96 Oxygen Delivery Method Room Air Nasal Cannula Oxygen Flow Rate (L/min) 1.5 06/26/24 13:17 06/26/24 13:49 06/26/24 14:01 Temperature Temperature Source Pulse Rate 77 Pulse Rate [Lying] 74 Pulse Rate [Sitting (for 1 minute prior to obtaining)] 75 Pulse Rate [Standing (for 1 minute prior to obtaining)] Respiratory Rate 17 Respiratory Effort Normal Respiratory Pattern Normal Blood Pressure 112/70 Blood Pressure [Lying] 106/60 Blood Pressure [Sitting (for 1 minute prior to obtaining)] 92/64 Blood Pressure [Standing (for 1 minute prior to obtaining)] Blood Pressure Mean 84 Blood Pressure Mean [Lying] 75 Blood Pressure Mean [Sitting (for 1 minute prior to obtaining)] 73 Blood Pressure Mean [Standing (for 1 minute prior to obtaining)] Pulse Ox 96 Oxygen Delivery Method Nasal Cannula Oxygen Flow Rate (L/min) 1.5 06/26/24 14:17 06/26/24 14:17 06/26/24 15:00 Temperature 97.3 F L 97.3 F L 98 F Temperature Source Temporal Temporal Temporal Pulse Rate 74 73 73 Pulse Rate [Lying] Pulse Rate [Sitting (for 1 minute prior to obtaining)] Pulse Rate [Standing (for 1 minute prior to obtaining)] Respiratory Rate 20 H 18 16 Respiratory Effort Respiratory Pattern Blood Pressure 100/58 L 100/58 L 105/58 L Blood Pressure [Lying] Blood Pressure [Sitting (for 1 minute prior to obtaining)] Blood Pressure [Standing (for 1 minute prior to obtaining)] Blood Pressure Mean 72 72 73 Blood Pressure Mean [Lying] Blood Pressure Mean [Sitting (for 1 minute prior to obtaining)] Blood Pressure Mean [Standing (for 1 minute prior to obtaining)] Pulse Ox 96 96 97 Oxygen Delivery Method Nasal Cannula Nasal Cannula Room Air Oxygen Flow Rate (L/min) 1.5 1.5 06/26/24 15:00 06/26/24 16:00 06/26/24 16:00 Temperature 97.9 F Temperature Source Temporal Pulse Rate 73 86 76 Pulse Rate [Lying] Pulse Rate [Sitting (for 1 minute prior to obtaining)] Pulse Rate [Standing (for 1 minute prior to obtaining)] Respiratory Rate 16 15 16 Respiratory Effort Respiratory Pattern Blood Pressure 105/58 L 101/59 L 101/59 L Blood Pressure [Lying] Blood Pressure [Sitting (for 1 minute prior to obtaining)] Blood Pressure [Standing (for 1 minute prior to obtaining)] Blood Pressure Mean 73 73 73 Blood Pressure Mean [Lying] Blood Pressure Mean [Sitting (for 1 minute prior to obtaining)] Blood Pressure Mean [Standing (for 1 minute prior to obtaining)] Pulse Ox 99 95 99 Oxygen Delivery Method Room Air Oxygen Flow Rate (L/min) 06/26/24 16:23 06/26/24 17:00 06/26/24 17:00 Temperature 98 F Temperature Source Oral Pulse Rate 81 81 Pulse Rate [Lying] 76 Pulse Rate [Sitting (for 1 minute prior to obtaining)] 83 Pulse Rate [Standing (for 1 minute prior to obtaining)] 88 Respiratory Rate 18 18 Respiratory Effort Respiratory Pattern Blood Pressure 120/90 H 120/90 H Blood Pressure [Lying] 138/97 H Blood Pressure [Sitting (for 1 minute prior to obtaining)] 96/77 Blood Pressure [Standing (for 1 minute prior to obtaining)] 90/71 Blood Pressure Mean 100 100 Blood Pressure Mean [Lying] 110 Blood Pressure Mean [Sitting (for 1 minute prior to obtaining)] 83 Blood Pressure Mean [Standing (for 1 minute prior to obtaining)] 77 Pulse Ox 97 97 Oxygen Delivery Method Nasal Cannula Nasal Cannula Oxygen Flow Rate (L/min) Weight Weight: 117 kg Body Mass Index (BMI) 34.9 Physical Exam Narrative General: Alert, oriented, no apparent distress HEENT: Atraumatic, normocephalic Eyes: Anicteric, normal conjunctiva, extraocular movements intact, no nystagmus Neck: Supple Respiratory: Clear to auscultation bilaterally, normal respiratory effort Cardiovascular: Regular rate and rhythm GI: Soft, nontender, nondistended Extremities: No edema Musculoskeletal: Moving all extremities Neuro: No overt focal neurological deficits, finger-nose bilaterally without difficulty Skin: No rashes appreciated Psych: Cooperative Results Lab / Micro Data 06/26/24 13:14 06/26/24 13:14 Labs: Laboratory Results - last 24 hr 06/26/24 13:14: WBC 60.3 H*, RBC 4.41 L, Hgb 14.0, Hct 43.0, MCV 97.5 H, MCH 31.7, MCHC 32.6, RDW Std Deviation 46.7 H, RDW Coeff of Andrey 13.4, Plt Count 127 L, MPV 9.8, Immature Gran % (Auto) 0.200, Neut % (Auto) 9.9 L, Lymph % (Auto) 87.9 H, [place] % (Auto) 1.5, Eos % (Auto) 0.5, Baso % (Auto) 0.0, Absolute Neuts (auto) 5.9, Absolute Lymphs (auto) 53.00 H, Nucleated RBC % 0, Diff Path Review March, Sodium 138, Potassium 3.7, Chloride 105, Carbon Dioxide 26.0, Anion Gap 7, BUN 33 H, Creatinine 1.76 H, Estim Creat Clear Calc 43.47, Est GFR (MDRD) Af Amer 48 L, Est GFR (MDRD) Non-Af 40 L, BUN/Creatinine Ratio 18.8, Glucose 133 H, Calcium 8.7, Troponin I High Sens 64 06/26/24 15:28: Urine pH 5.0, Ur Specific [place] 1.020, Urine Protein 30 H, Urine Glucose (UA) Normal, Urine Ketones 5 H, Urine Occult Blood 50 H, Urine Nitrite Negative, Urine Bilirubin 1 H, Urine Urobilinogen 1 H, Ur Leukocyte Esterase 25 H, Urine RBC 0-5 SEEN, Urine WBC 0-5 SEEN, Ur Squamous Epith Cells 0 SEEN, Urine Bacteria 0 SEEN, Urine Mucus 0 SEEN Imaging Radiology Impression Chest X-Ray 06/26/24 13:45 IMPRESSION: No interval change. Electronically Signed: Santi Valle MD at 15:18 EDT , Assessment & Plan Assessment/Plan (1) Acute hypotension: (2) KIET (acute kidney injury): (3) BPH (benign prostatic hyperplasia): (4) Essential hypertension: (5) H/O coronary artery bypass surgery: (6) History of coronary artery stent placement: (7) Orthostatic hypotension: PLAN: Plan #Dizziness/presyncope/hypotension -Patient describes symptoms almost more as vertiginous in nature however seem to be associated with hypotension so unclear if patient having difficulty describing symptoms or if 2 processes may be happening -Patient was profoundly hypotensive when he came in and has been improving with IV fluids but was still orthostatic positive -Hold antihypertensives, continue IVF, repeat orthostats in AM -Had recent stroke workup last week with negative MRI, echo unremarkable -EKG normal sinus rhythm, no bradycardia or tachycardia noted -If further episodes or if symptoms do not improve with fluids and holding blood pressure medications may consider another neurology consult # KIET -Patient does seem to be somewhat volume concentrated with all cell lines increased -Additionally creatinine 1.76 and on 06/23 it was 1.29 -Dehydration versus low perfusion due to hypotension -IV fluids -Hold antihypertensives #CLL -Follows with [facility] and reports following once a year and has not needed any treatment #CAD s/p CABG and stenting -Cardiac heart healthy diet -Continue Plavix -Hold MUNIRA and Imdur #Hx hypertension -Holding medications as above #Hx BPH -Given orthostatic hypotension on tamsulosin we will hold today today, resume once patient stable #DVT ppx: SCDs Daphnie Perdomo MD Time spent in the patient's overall evaluation,decision-making process, review of diagnostic data, adjustment of management, discussion with other providers, nursing nursing and ancillary staff involved in patient's care documentation, 56 minutes Charges/Coding Visit Charges Inpatient E&M: 61173 Init Hosp L1
--- NOTE | 2024-06-26 17:56 | NURSING ---
1725 CALLED BERYL, ETA IS 60 TO 90
[2024-06-26] MEDS: MELATONIN 3 MG TABLET PO (20:57)
[2024-06-26] MEDS: 0.9% Normal Saline (1000mL) 1,000 ML 75 ML IV (20:57)
[2024-06-27 02:24] VITALS: BP 126/71; PULSE 57; RESP 16; TEMP 36.7; O2SAT 97
[2024-06-27 05:38] LABS: Absolute Lymphocyte Count 28.25 X10^3/uL (0.83-4.51); Absolute Neutrophil Count 2.9 X10^3/uL (2.0-7.7); Basophil# 0.04 X10^3/uL; Basophil% 0.1 % (0-1); Eosinophil# 0.29 X10^3/uL; Eosinophils% 0.9 % (0-5); Hematocrit 34.7 % (40-54); Hemoglobin 11.1 g/dL (13.0-16.5); Lymphocyte # 28.25 X10^3/ul (0.83-4.51); Lymphocyte % 88.1 % (19-41); Mean Corpuscular Hgb 31.9 pg (27.0-32.0); Mean Corpuscular Volume 99.7 fL (80-94); Mean Platelet Vol. 9.5 fl (6.2-12.0); Monocyte% 1.6 % (0-10); NRBC Flagged by Analyzer 0 % (0-5); Neutrophil # 2.93 X10^3/uL (2.7-7.7); Neutrophil % 9.1 % (47-70); POSITIVE COUNT YES; POSITIVE DIFFERENTIAL YES; Platelet Count 82 K/mm3 (150-450); RBC Distribution Width CV 13.5 % (11.6-14.6); RBC Distribution Width SD 48.4 fl (35.1-43.9); Red Blood Count 3.48 M/mm3 (4.6-6.2)
[2024-06-27 06:07] LABS: Differential Indicated SCAN CRITERIA MET; White Blood Count 32.1 K/mm3 (4.4-11.0)
[2024-06-27 06:13] LABS: ALB/GLOB Ratio 1.2 RATIO (0.9-2.4); AST(SGOT) 25 U/L (15-37); Alanine Aminotransfer ALT/SGPT 27 U/L (16-61); Albumin, Serum 3.1 g/dL (3.2-5.0); Alkaline Phosphatase 66 U/L (45-117); Anion Gap 5 (5-15); BUN 26 mg/dL (7-18); BUN/Creat Ratio 20.8 RATIO (10-20); Calcium,Total 7.9 mg/dL (8.5-10.1); Chloride 109 mmol/L (98-107); Creatinine, Serum 1.25 mg/dL (0.70-1.30); EST Glomerular Filtration Rate 59 mL/min (>60); Est Glom Filt Rate - Afr Amer 71 mL/min (>60); Estimated Creatinine Clearance 60.68 ml/min; Globulin 2.5 g/dL (2.2-4.2); Glucose 104 mg/dL (74-106); Magnesium 1.8 mg/dL (1.6-2.6); Potassium 3.6 mmol/L (3.5-5.1); Protein, Total 5.6 g/dL (6.4-8.2); Sodium Level 140 mmol/L (136-145)
[2024-06-27 06:54] VITALS: BP 105/70; PULSE 59; RESP 16; TEMP 36.8; O2SAT 97
[2024-06-27 10:00] VITALS: BP 116/83; PULSE 77; RESP 16; TEMP 36.4; O2SAT 97
[2024-06-27] MEDS: Clopidogrel Bisulfate 75 MG Tablet PO (10:04)
--- NOTE | 2024-06-27 11:46 | PCM.PN.HOSP ---
Reason for Visit Reason for Visit: Diagnoses Essential (primary) hypertension (06/26/24) Orthostatic hypotension (06/26/24) Hypotension, unspecified (06/26/24) Acute kidney failure, unspecified (06/26/24) Benign prostatic hyperplasia without lower urinary tract symptoms (06/26/24) Presence of aortocoronary bypass graft (06/26/24) Presence of coronary angioplasty implant and graft (06/26/24) Subjective Subjective Patient was admitted yesterday afternoon for an episode of dizziness with presyncopal symptoms. Found to be hypotensive to the 70s over 50s in the ED, improved with IV fluid resuscitation. Also found to have mild KIET presumed secondary to volume depletion. Saw patient at bedside this morning. Patient was sitting up comfortably in bedside chair, in no acute distress. He appeared euvolemic today, moist mucous membranes and good skin turgor. Patient states today that he feels significant improved from yesterday. Only moved from bed to the chair but denied any dizziness or lightheadedness with going from sitting to standing. Patient states he is concerned by the number of medications he is on at home and thinks that his medication regimen should be reduced to avoid further events like this. Notes that he lives by himself and was concerned that given how dizzy and lightheaded he fell yesterday, if he had another episode like that at home he could . Patient did lose his train of thought at times during our conversation but otherwise answered all questions appropriately. No other acute concerns today. Objective Data Objective Data Vital Signs: Vital Signs Temp Pulse Resp BP Pulse Ox O2 Del Method O2 Flow Rate 97.6 F L 77 16 116/83 H 97 Room Air 1 06/27/24 10:00 06/27/24 10:00 06/27/24 10:06/27/24 10:00 06/27/24 10:00 06/27/24 10:00 06/27/24 08:04 Oxygen Flow Rate (L/min) 1 Oxygen Delivery Method Room Air Weight: 115 kg Body Mass Index (BMI) 34.4 Intake & Output: Intake and Output for Last 24 Hours 06/25/24 06/26/24 06/27/24 23:59 23:59 23:59 Intake Total 1999 1300 / 1300 Output Total 250 / 250 Balance 1999 1050 / 1050 Lab / Micro Data 06/27/24 04:09 06/27/24 04:09 Labs: Laboratory Results - last 24 hr 06/26/24 13:14: WBC 60.3 H*, RBC 4.41 L, Hgb 14.0, Hct 43.0, MCV 97.5 H, MCH 31.7, MCHC 32.6, RDW Std Deviation 46.7 H, RDW Coeff of Andrey 13.4, Plt Count 127 L, MPV 9.8, Immature Gran % (Auto) 0.200, Neut % (Auto) 9.9 L, Lymph % (Auto) 87.9 H, [place] % (Auto) 1.5, Eos % (Auto) 0.5, Baso % (Auto) 0.0, Absolute Neuts (auto) 5.9, Absolute Lymphs (auto) 53.00 H, Nucleated RBC % 0, Diff Path Review March, Sodium 138, Potassium 3.7, Chloride 105, Carbon Dioxide 26.0, Anion Gap 7, BUN 33 H, Creatinine 1.76 H, Estim Creat Clear Calc 43.47, Est GFR (MDRD) Af Amer 48 L, Est GFR (MDRD) Non-Af 40 L, BUN/Creatinine Ratio 18.8, Glucose 133 H, Calcium 8.7, Troponin I High Sens 64 06/26/24 15:28: Urine pH 5.0, Ur Specific [place] 1.020, Urine Protein 30 H, Urine Glucose (UA) Normal, Urine Ketones 5 H, Urine Occult Blood 50 H, Urine Nitrite Negative, Urine Bilirubin 1 H, Urine Urobilinogen 1 H, Ur Leukocyte Esterase 25 H, Urine RBC 0-5 SEEN, Urine WBC 0-5 SEEN, Ur Squamous Epith Cells 0 SEEN, Urine Bacteria 0 SEEN, Urine Mucus 0 SEEN 06/27/24 04:09: WBC 32.1 H*, RBC 3.48 L, Hgb 11.1 L, Hct 34.7 L, MCV 99.7 H, MCH 31.9, MCHC 32.0, RDW Std Deviation 48.4 H, RDW Coeff of [place]rey 13.5, Plt Count 82 L, MPV 9.5, Immature Gran % (Auto) 0.200, Neut % (Auto) 9.1 L, Lymph % (Auto) 88.1 H, [place] % (Auto) 1.6, Eos % (Auto) 0.9, Baso % (Auto) 0.1, Absolute Neuts (auto) 2.9, Absolute Lymphs (auto) 28.25 H, Nucleated RBC % 0, Diff Path Review [place] foll, Sodium 140, Potassium 3.6, Chloride 109 H, Carbon Dioxide 26.0, Anion Gap 5, BUN 26 H, Creatinine 1.25, Estim Creat Clear Calc 60.68, Est GFR (MDRD) Af Amer 71, Est GFR (MDRD) Non-Af 59 L, BUN/Creatinine Ratio 20.8 H, Glucose 104, Calcium 7.9 L, Magnesium 1.8, Total Bilirubin 1.10 H, AST 25, ALT 27, Alkaline Phosphatase 66, Total Protein 5.6 L, Albumin 3.1 L, Globulin 2.5, Albumin/Globulin Ratio 1.2 Radiography Diagnostic Testing: Radiology Impression Chest X-Ray 06/26/24 13:45 IMPRESSION: No interval change. Electronically Signed: Santi Valle MD at 15:18 EDT , Physical Exam Const alert, oriented x3 and no apparent distress Constitutional Narrative: Pleasant elderly male, obese, mildly fatigued appearing, otherwise sitting up comfortably in bedside chair, conversing normally, in no acute distress. General Appearance: cooperative and comfortable HEENT normocephalic, head/scalp atraumatic, hearing grossly normal bilaterally, nasal mucous membranes and turbinates normal and moist oral mucous membranes Eyes PERRL, EOMs intact bilaterally and conjunctivae normal Neck full ROM Chest inspection of chest normal Resp normal respiratory effort, normal air movement, no use of accessory muscles and clear to auscultation bilaterally Cardio regular rate, regular rhythm, no murmurs and peripheral pulses 2+ throughout GI normal to inspection, nondistended, normoactive bowel sounds, soft to palpation, non-tender and non-distended Back/Spine normal ROM Extremity normal to inspection, full ROM and no pedal edema Skin no rashes or lesions noted Neuro no focal motor deficits and no sensory deficits noted Speech: speech normal Psych mental status grossly normal Assessment & Plan Assessment/Plan (1) Near syncope: (2) Orthostatic hypotension: (3) KIET (acute kidney injury): PLAN: Plan Patient is an 79-year-old male who presented [facility] ED on 06/26/2024 with presyncopal symptoms and hypotension. 1. Presyncopal symptoms with hypotension, improving; history of hypertension ? Blood pressure in 70s over 50s in the ED; suspected that hypotension was the etiology of his presyncopal symptoms. No head imaging done in ED but notably had CT brain, CTA head/neck and MRI brain done on 06/18-06/19 that were unremarkable. Patient had significant improvement in hypotension and presyncopal symptoms with IV fluid resuscitation. Home blood pressure regimen of lisinopril 20 mg daily, hydrochlorothiazide 12.5 mg daily, isosorbide mononitrate 60 mg daily and Flomax 0.4 mg twice daily. Suspect patient is overmedicated at this point. Had good improvement of blood pressure on hospital day 2, orthostatic vitals negative and blood pressure up to 140s to 150s systolic. Will start Coreg 6.25 mg twice daily and lisinopril 5 mg daily on 06/27, monitor blood pressure and heart rate. If patient tolerates this regimen well, will plan to discharge him home in the next day or 2 on this. 2. KIET, resolved ? Creatinine 1.76 on admit, baseline around 1.2-1.3. Improved back to baseline by hospital day 2 after IV fluid resuscitation. No need to monitor further labs. 3. Recent hospitalization with acute encephalopathy suspected due to UTI; generalized debility ? Recent admission here from 06/18-06/22. Presented on admission after syncopal episode and was found to have some degree of encephalopathy on admission. Suspected that encephalopathy was due to mild UTI, improved with antibiotic treatment. PT/OT/case management followed then and he was apparently discharged to an assisted living facility. Presented from that facility on this admission. PT/OT/case management again consulted. Good therapy scores on 06/27, likely okay for discharge back to AL facility in the next 1 to 2 days. 4. History of CLL ? WBC count 60.3 K on admission, significantly improved to 32.1 on hospital day 2 after IV fluid resuscitation. Lymphocyte predominant on labs on admit and hospital day 2. Presumed secondary to known CLL, no need to monitor further CBCs while inpatient. Chronic medical conditions: ? Obesity: BMI 34 on admit. Complicates hospital course, care and prognosis. ? History of CAD s/p CABG: Continue home aspirin, Plavix and statin. ? GERD: Continue home PPI. ? BPH with obstructive symptoms: Holding home Flomax for now, will likely plan to restart at 0.4 mg daily on discharge. ? Chronic thrombocytopenia: Platelets stable at baseline around 80-90. DVT prophylaxis: Lovenox CODE STATUS: DNR CCA, DNI Expected disposition: Home with home health care, 1 to 2 days Total clinical time spent by myself addressing the patient's medical issues, reviewing all the data, and collaborating with patient's care team: 35 minutes. Charges/Coding Visit Charges Inpatient E&M: 66878 Subs Hosp L2
[2024-06-27 14:39] VITALS: BP 138/95; BP 146/82; BP 159/94; PULSE 70; PULSE 75
[2024-06-27 16:45] VITALS: BP 149/81; PULSE 71; RESP 16; TEMP 36.8; O2SAT 98
[2024-06-27] MEDS: Lisinopril 5 MG Tablet PO (16:45)
[2024-06-27] MEDS: Carvedilol 6.25 MG Tablet PO ×2 (16:45→20:37)
[2024-06-27 22:45] VITALS: BP 111/77; PULSE 64; RESP 15; TEMP 36.5; O2SAT 97
[2024-06-28 04:25] VITALS: BP 110/70; PULSE 72; RESP 16; TEMP 36.6; O2SAT 97
[2024-06-28 08:09] LABS: Vitamin B12 511 pg/mL (211-911)
[2024-06-28 08:21] VITALS: BP 144/98; PULSE 72; RESP 16; TEMP 36.4; O2SAT 99
[2024-06-28] MEDS: Lisinopril 5 MG Tablet PO (08:24)
[2024-06-28] MEDS: Clopidogrel Bisulfate 75 MG Tablet PO (08:24)
[2024-06-28 09:51] VITALS: O2SAT 93
[2024-06-28 11:51] VITALS: BP 168/89; PULSE 72
[2024-06-28] MEDS: Isosorbide Mononitrate 30 MG Tablet PO (11:51)
--- NOTE | 2024-06-28 12:36 | PCM.DC ---
Discharge Instructions Diet Discharge Diet: No restrictions Activity Discharge Activity: No Restrictions Follow Up Care Test Results: Test results from this visit will be discussed in further detail at your follow-up appointment, if applicable. 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 Follow-up with your primary care doctor in the office in the next few weeks. Discharge Orders/Prescriptions Prescriptions: New isosorbide mononitrate 30 mg Tablet Extended Release 24 Hr 30 mg PO DAILY 30 Days Qty: 30 2RF tamsulosin 0.4 mg Capsule 0.4 mg PO 1730 30 Days Qty: 30 2RF lisinopril 5 mg Tablet 5 mg PO DAILY 30 Days Qty: 30 2RF Continued sennosides-docusate sodium [Stool Softener-Laxative] 8.6-50 mg tablet 1 tab-cap PO QODAY PRN (Reason: constipation) acetaminophen [8 Hour Pain Reliever] 650 mg tablet extended release 650 mg PO Q8H PRN (Reason: pain) celecoxib 100 mg capsule 100 mg PO Q12H Patient Comments: TAKE 1 CAPSULE BY MOUTH TWICE DAILY NEEDED WITH A MEAL FOR PAIN clopidogrel [Plavix] 75 mg tablet 75 mg PO DAILY Qty: 90 3RF Discontinued ibuprofen [IBU] 400 mg tablet 400 mg PO Q4H tamsulosin 0.4 mg capsule 0.4 mg PO BID Qty: 180 3RF isosorbide mononitrate 60 mg tablet extended release 24 hr 60 mg PO DAILY Qty: 90 3RF lisinopril-hydrochlorothiazide 20-12.5 mg tablet 1 tab PO DAILY Qty: 90 3RF Referrals / Follow Up: Opal Javier MD [Primary Care Provider] - Disposition Disposition (needs filled in before D/C Order can be placed): Home, Self Care
--- NOTE | 2024-06-28 12:39 | DS.PCM_ITS ---
Providers Date of Admission: 06/26/24 Date of Discharge: 06/28/24 Primary Care Physician: Dr. Opal Javier MD Reason For Visit: HYPOTENSION Diagnosis Discharge Diagnosis (1) Near syncope: Status: Acute Code(s): R55 - Syncope and collapse (2) Orthostatic hypotension: Status: Acute Code(s): I95.1 - Orthostatic hypotension (3) KIET (acute kidney injury): Status: Acute Code(s): N17.9 - Acute kidney failure, unspecified Medications at Discharge Home Medications clopidogrel 75 mg tablet (Plavix) 75 mg PO DAILY heart #90 tabs 02/06/24 acetaminophen 650 mg tablet,extended release (8 Hour Pain Reliever) 650 mg PO Q8H PRN pain 06/19/24 sennosides 8.6 mg-docusate sodium 50 mg tablet (Stool Softener-Laxative) 1 tab- cap PO QODAY PRN constipation 06/19/24 celecoxib 100 mg capsule 100 mg PO Q12H arthri 06/26/24 docusate sodium 100 mg capsule 100 mg PO DAILY 06/28/24 isosorbide mononitrate 30 mg tablet,extended release 24 hr 30 mg PO DAILY 30 days #30 tabs 06/28/24 lisinopril 5 mg tablet 5 mg PO DAILY 30 days #30 tabs 06/28/24 mecobalamin (vitamin B12) 500 mcg chewable tablet mcg PO 06/28/24 mv-mn-folic 200 mcg-vit K 15 mcg-lutein 5 mg-zeaxanthin 1 mg capsule (PreserVision AREDS 2 Plus Multivit) cap PO 06/28/24 tamsulosin 0.4 mg capsule 0.4 mg PO 1730 30 days #30 caps 06/28/24 Hospital Course Operations None Procedures EKG and - (Chest x-ray) Summary of Care Provided Minutes Spent on Discharge: 35 Hospital Course: Patient is an 79-year-old male who presented [facility] ED on 06/26/2024 with presyncopal symptoms and hypotension. Hospital course as noted below. Patient discharged home in stable condition on . Presyncopal symptoms with hypotension, improved; history of hypertension ? Blood pressure in 70s over 50s in the ED; suspected that hypotension was the etiology of his presyncopal symptoms. No head imaging done in ED but notably had CT brain, CTA head/neck and MRI brain done on 06/18-06/19 that were unremarkable. Patient had significant improvement in hypotension and presyncopal symptoms with IV fluid resuscitation. Home blood pressure regimen on admit of lisinopril 20 mg daily, hydrochlorothiazide 12.5 mg daily, isosorbide mononitrate 60 mg daily and Flomax 0.4 mg twice daily; suspected that patient was overmedicated leading to these events. Had good blood pressure control on lisinopril 5 mg daily, isosorbide mononitrate 30 mg daily and Flomax 0.4 mg at night; discharged home on this regimen. Recommended close outpatient follow-up with PCP for further medication adjustments as needed. 2. KIET, resolved ? Creatinine 1.76 on admit, baseline around 1.2-1.3. Improved back to baseline by hospital day 2 after IV fluid resuscitation. 3. Recent hospitalization with acute encephalopathy suspected due to UTI; generalized debility ? Recent admission here from 06/18-06/22. Presented on admission after syncopal episode and was found to have some degree of encephalopathy on admission. Suspected that encephalopathy was due to mild UTI, improved with antibiotic treatment. PT/OT/case management followed then and he was discharged to assisted living facility, but he went back home only a few days later. Had good therapy scores while here, okay for discharge home. 4. History of CLL ? WBC count 60.3 K on admission, significantly improved to 32.1 on hospital day 2 after IV fluid resuscitation. Lymphocyte predominant on labs on admit and hospital day 2. Presumed secondary to known CLL. Continue outpatient monitoring. Chronic medical conditions: ? Obesity: BMI 34 on admit. Complicated hospital course, care and prognosis. ? History of CAD s/p CABG: Continue home aspirin, Plavix and statin. ? GERD: Continue home PPI. ? BPH with obstructive symptoms: Discharged on Flomax 0.4 mg at night. ? Chronic thrombocytopenia: Platelets stable at baseline around 80-90. Total clinical time spent by myself addressing the patient's medical issues, reviewing all the data, and collaborating with patient's care team: 35 minutes. Physical Exam Const alert, oriented x3 and no apparent distress Constitutional Narrative: Pleasant elderly male, obese, energy improved, sitting up comfortably in bedside chair, conversing normally, in no acute distress. General Appearance: cooperative and comfortable HEENT normocephalic, head/scalp atraumatic, hearing grossly normal bilaterally, nasal mucous membranes and turbinates normal and moist oral mucous membranes Eyes PERRL, EOMs intact bilaterally and conjunctivae normal Neck full ROM Chest inspection of chest normal Resp normal respiratory effort, normal air movement, no use of accessory muscles and clear to auscultation bilaterally Cardio regular rate, regular rhythm, no murmurs and peripheral pulses 2+ throughout GI normal to inspection, nondistended, normoactive bowel sounds, soft to palpation, non-tender and non-distended Back/Spine normal ROM Extremity normal to inspection, full ROM and no pedal edema Skin no rashes or lesions noted Neuro no focal motor deficits and no sensory deficits noted Speech: speech normal Psych mental status grossly normal Weight / BMI Weight Weight: 115 kg Body Mass Index (BMI) 34.4 ABG / Lab / Microbiology Data 06/27/24 04:09 06/27/24 04:09 Laboratory: Laboratory Results - last 24 hr 06/27/24 04:09: Vitamin B12 511 D/C Instructions Discharge Diet: No restrictions Meaningful Use Info Meaningful Use Meaningful Use Diagnoses (Choose all that apply): None applicable Ischemic Stroke Statin Dosing Therapy Reference: STATIN DOSE THERAPY REFERENCE: * Patients > 75 years receive moderate or high dose statin therapy. * Patients 75 years or YOUNGER should receive HIGH intensity statin dose unless contraindicated. You will be required to document reason for non-treatment if statin daily dose does not meet guidelines. HIGH DOSE STATIN THERAPY DAILY Atorvastatin > than or = to 40 mg Rosuvastatin > than or = to 20 mg Amlodipine + Atorvastatin > than or = to 2.5/40 mg Ezetimibe + Simvastatin 10/80 mg Simvastatin 80mg Discharge Plan Admission Admit Date/Time: 06/26/24 17:53 Primary Reason for Your Visit: lightheadedness and dizziness Attending Provider: Michael Polanco Primary Care Provider: Opal Javier Consulting Providers: Daphnie Perdomo Instructions Additional Instructions / Restrictions: We have made changes to your blood pressure medications, please pickle processor new medications and take as noted below. Follow-up with your primary care doctor in the office in the next few weeks. Discharge Orders/Prescriptions Prescriptions: New isosorbide mononitrate 30 mg Tablet Extended Release 24 Hr 30 mg PO DAILY 30 Days Qty: 30 2RF tamsulosin 0.4 mg Capsule 0.4 mg PO 1730 30 Days Qty: 30 2RF lisinopril 5 mg Tablet 5 mg PO DAILY 30 Days Qty: 30 2RF Continued sennosides-docusate sodium [Stool Softener-Laxative] 8.6-50 mg tablet 1 tab-cap PO QODAY PRN (Reason: constipation) acetaminophen [8 Hour Pain Reliever] 650 mg tablet extended release 650 mg PO Q8H PRN (Reason: pain) celecoxib 100 mg capsule 100 mg PO Q12H Patient Comments: TAKE 1 CAPSULE BY MOUTH TWICE DAILY NEEDED WITH A MEAL FOR PAIN clopidogrel [Plavix] 75 mg tablet 75 mg PO DAILY Qty: 90 3RF Discontinued ibuprofen [IBU] 400 mg tablet 400 mg PO Q4H tamsulosin 0.4 mg capsule 0.4 mg PO BID Qty: 180 3RF isosorbide mononitrate 60 mg tablet extended release 24 hr 60 mg PO DAILY Qty: 90 3RF lisinopril-hydrochlorothiazide 20-12.5 mg tablet 1 tab PO DAILY Qty: 90 3RF No Action PreserVision AREDS 2 Plus MV 200 mcg-15 mcg- 5 mg-1 mg capsule PO mecobalamin (vitamin B12) 500 mcg tablet,chewable PO docusate sodium 100 mg capsule 100 mg PO DAILY Referrals / Follow Up: Opal Javier MD [Primary Care Provider] - 07/05/24 10:30 am Disposition Disposition (needs filled in before D/C Order can be placed): Home, Self Care Charges/Coding Visit Charges Inpatient E&M: 63475 Disch Hosp >30min
--- NOTE | 2024-06-28 12:39 | CASEMGMT ---
SW called Adult Protective Services and spoke with Rosa letting her know about patient's admission. Elen Miner [employer]STING [employer]ENT MAJO
--- NOTE | 2024-06-28 12:45 | CASEMGMT ---
RENETTA GARZA chart review: Patient was admitted 06/18-06/23 for CVA rule out, concern for sepsis, and KIET. See RENETTA GARZA assessment from 06/19/24. Patient was discharge to [facility] with [facility]. Patient was only at [facility] for 6 hours and APS referral was made. Patient returned to [facility] ED on 06/26/24 for dizziness and was admitted for hypotension and positive orthostatics. RENETTA GARZA in to discuss readmission and discharge plans. Patient states he was taking his medications at home and has his follow-up appts scheduled. Patient states that [facility] had been out to see. Patient states he did not fit in at [facility] and if wasnt' for him yet. RENETTA GARZA discussed going home with resumption of [facility], patient agreeable. Patient states his friends assist with transportation. Patient gave permission for RENETTA GARZA to call [facility] to update regarding discharge plans. Patient had no further questions or concerns. RENETTA GARZA called [facility], no answer, VM left with return contact information.
[2024-06-28 13:32] LABS: Pathologist Review Reviewed
--- NOTE | 2024-06-28 13:34 | PHA.DC_ITS ---
Pharmacy [place] Med Reconciliation Pharmacy Service has performed discharge medication reconciliation for this patient. The patient's discharge medication list was reviewed for discrepancies and discrepancies were resolved. Medications at Discharge Home Medications clopidogrel 75 mg tablet (Plavix) 75 mg PO DAILY heart #90 tabs 02/06/24 acetaminophen 650 mg tablet,extended release (8 Hour Pain Reliever) 650 mg PO Q8H PRN pain 06/19/24 sennosides 8.6 mg-docusate sodium 50 mg tablet (Stool Softener-Laxative) 1 tab- cap PO QODAY PRN constipation 06/19/24 celecoxib 100 mg capsule 100 mg PO Q12H arthri 06/26/24 docusate sodium 100 mg capsule 100 mg PO DAILY 06/28/24 isosorbide mononitrate 30 mg tablet,extended release 24 hr 30 mg PO DAILY 30 days #30 tabs 06/28/24 lisinopril 5 mg tablet 5 mg PO DAILY 30 days #30 tabs 06/28/24 mecobalamin (vitamin B12) 500 mcg chewable tablet mcg PO 06/28/24 mv-mn-folic 200 mcg-vit K 15 mcg-lutein 5 mg-zeaxanthin 1 mg capsule (PreserVision AREDS 2 Plus Multivit) cap PO 06/28/24 tamsulosin 0.4 mg capsule 0.4 mg PO 1730 30 days #30 caps 06/28/24
[2024-06-28 13:46] LABS: Pathologist Review Reviewed
[2024-06-28 14:08] VITALS: BP 121/71; PULSE 71; RESP 14; O2SAT 96
== END 2024-06-28 14:54 | disposition home health service (06) | DRG 312 ==
LOC: ED 16:57 → PCU 06-27 07:07
PROVIDERS: Admitting Provider Internal Medicine; Emergency Provider Emergency Medicine; PCP Internal Medicine; Visit Provider Hospitalist
DX: I95.1 Orthostatic hypotension (principal); C91.10 Chronic lymphocytic leukemia of B-cell type not having achieved remission; N17.9 Acute kidney failure, unspecified; D69.6 Thrombocytopenia, unspecified; I10 Essential (primary) hypertension; E66.9 Obesity, unspecified; E78.5 Hyperlipidemia, unspecified; I25.10 Atherosclerotic heart disease of native coronary artery without angina pectoris; Z66 Do not resuscitate; Z87.891 Personal history of nicotine dependence; N40.1 Benign prostatic hyperplasia with lower urinary tract symptoms; Z79.02 Long term (current) use of antithrombotics/antiplatelets; Z95.5 Presence of coronary angioplasty implant and graft; Z68.34 Body mass index [BMI] 34.0-34.9, adult; Z79.891 Long term (current) use of opiate analgesic; Z95.1 Presence of aortocoronary bypass graft; Z87.440 Personal history of urinary (tract) infections; Z79.899 Other long term (current) drug therapy; N13.8 Other obstructive and reflux uropathy
CPT/HCPCS: 36415; 71045; 80048; 80053; 81001; 82607; 83735; 84484; 85025; 93005; 96360; 96361; 97162; 99221; 99285; J7030; G0378

== ENCOUNTER → 2024-08-16 | Outpatient (CLI) | payer MEDICARE, SELFPAY ==
[2024-05-12 14:06] VITALS: BMI 36.0
== END | disposition home or self-care (01) ==
LOC: LABSPEC 10:10
PROVIDERS: PCP Internal Medicine; Referring Provider Nurse Practitioner Family; Visit Provider Nurse Practitioner Family
DX: N39.0 Urinary tract infection, site not specified (principal)
CPT/HCPCS: 87086

== ENCOUNTER 2024-08-20 07:00 | Outpatient (RCR) | payer MEDICARE, SELFPAY ==
[2024-05-12 14:06] VITALS: BMI 36.0
== END 2024-08-20 19:00 | disposition home or self-care (01) ==
LOC: PT 07:00
PROVIDERS: PCP Internal Medicine; Referring Provider Orthopaedic Surgery Orthopaedic Surgery of the Spine; Visit Provider Orthopaedic Surgery Orthopaedic Surgery of the Spine
DX: G95.9 Disease of spinal cord, unspecified (principal)
CPT/HCPCS: 97110; 97162

== ENCOUNTER 2024-09-23 16:45 | Emergency (ER) | payer MEDICARE, SELFPAY ==
[2024-05-12 14:06] VITALS: BMI 36.0
[2024-09-23 16:46] VITALS: BP 153/93; PULSE 79; RESP 16; TEMP 36.6; O2SAT 98; BMI 34.0
--- NOTE | 2024-09-23 17:26 | EDS_ITS ---
HPI History of Present Illness Chief Complaint: Hypertension Informant: patient Onset/Context/Timing Onset: Today Context: Gradual Onset Timing: Continuous Quality: Confused, lightheaded Location: Generalized Worsened by: Nothing Relieved by: Nothing Narrative Narrative: Patient presents with dizziness, confusion, and elevated blood pressure that began today. Patient states he was trying to pay bills and did not know where to put the stamp on the envelope. Patient states that this has been constant throughout the day today. Patient admits to some palpitations. Patient states his dizziness feels like he is lightheaded. Patient states he checked his blood pressure at home and noted it was elevated. Patient states she took all of his blood pressure medications today. Patient denies any fevers or chills. Patient denies any chest pain or shortness of breath. Patient denies any nausea or vomiting. [facility] Medical History Altered mental status Disorientation Leukocytosis Transient visual loss of both eyes Primary osteoarthritis, left shoulder Primary osteoarthritis, right shoulder Left shoulder pain Right shoulder pain Wears partial dentures Wears glasses Depression Alcohol use Ambulates with cane Arthritis Prostate disease Anemia Excessive bleeding Easy bruising Injury of back Back pain History of leukemia Injury of head and neck Gastric reflux Former smoker Shortness of breath on exertion History of pain when walking History of edema History of echocardiogram Normal stress echocardiogram History of stress test Cardiology follow-up encounter History of heart attack Thrombocytopenia Old inferior wall myocardial infarction (1990) Abdominal aortic aneurysm (AAA) Atherosclerotic heart disease of [place] coronary artery without angina pectoris Atherosclerosis of coronary artery bypass graft without angina pectoris Chronic lymphocytic leukemia Cervical stenosis of spinal canal (12/10/19) Incontinence Obesity Erectile dysfunction Peptic ulcer Carotid artery stenosis without cerebral infarction Hyperlipidemia Essential hypertension Home Medications ?Medication ?Instructions ?Recorded ?Last Taken ?Type clopidogrel 75 mg tablet (Plavix) 75 mg PO DAILY heart #90 tabs 02/06/24 Unknown Rx acetaminophen 650 mg 650 mg PO Q8H PRN pain 06/19/24 Unknown History tablet,extended release (8 Hour Pain Reliever) sennosides 8.6 mg-docusate sodium 1 tab-cap PO QODAY PRN constipation 06/19/24 Unknown History 50 mg tablet (Stool Softener-Laxative) celecoxib 100 mg capsule 100 mg PO Q12H arthri 06/26/24 Unknown History docusate sodium 100 mg capsule 100 mg PO DAILY 06/28/24 Unknown History isosorbide mononitrate 30 mg 30 mg PO DAILY 30 days #30 tabs 06/28/24 Unknown Rx tablet,extended release 24 hr mecobalamin (vitamin B12) 500 mcg mcg PO 06/28/24 Unknown History chewable tablet mv-mn-folic 200 mcg-vit K 15 cap PO 06/28/24 Unknown History mcg-lutein 5 mg-zeaxanthin 1 mg capsule (PreserVision AREDS 2 Plus Multivit) tamsulosin 0.4 mg capsule 0.4 mg PO 1730 30 days #30 caps 06/28/24 Unknown Rx lisinopril 5 mg tablet 5 mg PO DAILY #90 tabs 09/16/24 Unknown Rx Allergy/AdvReac Type Severity Reaction Status Date / Time Penicillins Allergy Hives Verified 09/23/24 16:46 vancomycin Allergy Rash Verified 09/23/24 16:46 carvedilol (From Coreg) AdvReac Intermediate Unknown Verified 09/23/24 16:46 doxycycline AdvReac Intermediate GI Verified 09/23/24 16:46 intolerance Family History Mother Cancer Father Diabetes Heart disease Hypertension Sister Diabetes Surgical History Hx of cystoscopy (~2023) History of left heart catheterization (05/17/21) History of coronary angioplasty (1990) H/O coronary artery bypass surgery (1991) History of coronary artery stent placement (05/25/21) History of cervical spinal surgery (12/20/19) History of endovascular stent graft for abdominal aortic aneurysm (AAA) (11/07/16) Social History household members: none Smoking Status: Former smoker how long ago did patient quit smoking: Quit 05/2007, smoked 1 ppd until quit. alcohol intake: current alcohol intake frequency: holidays/special occasions only substance use type: does not use caffeine: Yes Type: coffee Number of servings: 2 ROS ROS ED Constitutional Constitutional ED: Denies chills or fever(s) Eyes Eyes: Denies blurry vision or change in vision ENT ENT ED: Denies rhinorrhea or sore throat Cardiovascular Cardiovascular: Reports palpitations; Denies chest pain Respiratory/Chest Respiratory/Chest: Denies cough or dyspnea Gastrointestinal Gastrointestinal: Denies nausea or vomiting Genitourinary Genitourinary ED: Denies dysuria or hematuria Musculoskeletal Musculoskeletal: Denies back pain or neck pain Integumentary Denies abscess or rash Neurologic Neurologic: Denies headache(s) or weakness Allergic/Immunologic Allergic/Immunologic ED: Denies mouth swelling or urticaria EXAM Physical Exam Const Vital Signs: 09/23/24 16:46 09/23/24 16:58 09/23/24 18:07 Temperature 97.9 F Temperature Source Temporal Pulse Rate 79 Pulse Rate [Lying] 68 Pulse Rate [Sitting (for 1 minute prior to obtaining)] 72 Pulse Rate [Standing (for 1 minute prior to obtaining)] 82 Respiratory Rate 16 Respiratory Effort Normal Respiratory Pattern Normal Blood Pressure 153/93 H Blood Pressure [Lying] 135/84 H Blood Pressure [Sitting (for 1 minute prior to obtaining)] 131/91 H Blood Pressure [Standing (for 1 minute prior to obtaining)] 139/94 H Blood Pressure Mean 113 Blood Pressure Mean [Lying] 101 Blood Pressure Mean [Sitting (for 1 minute prior to obtaining)] 104 Blood Pressure Mean [Standing (for 1 minute prior to obtaining)] 109 Pulse Ox 98 Oxygen Delivery Method Room Air 09/23/24 18:45 09/23/24 19:32 Temperature 98.7 F 98.1 F Temperature Source Temporal Pulse Rate 66 67 Pulse Rate [Lying] Pulse Rate [Sitting (for 1 minute prior to obtaining)] Pulse Rate [Standing (for 1 minute prior to obtaining)] Respiratory Rate 18 17 Respiratory Effort Respiratory Pattern Blood Pressure 140/69 H 155/90 H Blood Pressure [Lying] Blood Pressure [Sitting (for 1 minute prior to obtaining)] Blood Pressure [Standing (for 1 minute prior to obtaining)] Blood Pressure Mean 92 111 Blood Pressure Mean [Lying] Blood Pressure Mean [Sitting (for 1 minute prior to obtaining)] Blood Pressure Mean [Standing (for 1 minute prior to obtaining)] Pulse Ox 98 99 Oxygen Delivery Method Room Air Positive well nourished and well developed General Appearance ED: well developed and NAD HEENT Reports moist mucous membranes Neck supple and no JVD Resp normal respiratory effort and clear to auscultation bilaterally Cardio regular rate and regular rhythm GI non-tender and non-distended Palpation: soft Extremity Extremity Narrative: There is trace edema in the lower extremities bilaterally. There is no calf tenderness. There is full range of motion. General Extremety ED: Yes edema; Negative for tenderness General Extremity: edema Neuro oriented x3, CN's II-XII intact bilaterally and no sensory deficits noted Sensorium / Orientation: alert Motor Exam: strength 5/5 throughout Psych mental status grossly normal MDM MDM MDM Narrative Medical decision making narrative: Differential diagnosis includes stroke, intracranial bleeding, infection, cardiac dysrhythmia, cardiac ischemia, electrolyte abnormality, and anxiety. EKG will be obtained to assess for cardiac dysrhythmia and cardiac ischemia. Chest x-ray will be obtained to assess for pneumonia and pneumothorax. CT scan of the brain will be obtained to assess for intracranial bleeding and stroke. CBC will be obtained to assess for leukocytosis and anemia. Basic metabolic profile will be obtained to assess for electrolyte abnormality and renal function. High-sensitivity troponin will be obtained to assess for cardiac ischemia. Urinalysis will be obtained to assess for urinary tract infection and hematuria. Lab Data Attestation: I reviewed the patient's lab results. Lab results narrative: CBC was reviewed. White blood cell count was 27.6. This was actually improved from previous results. PT with INR and PTT were reviewed. PT was 15.3 and INR is 1.2. PTT was normal at 29.8. Basic metabolic profile was reviewed and was essentially within normal limits. Serum lactate was reviewed and was normal at 1.0. High-sensitivity troponin was reviewed and was normal at 8. Labs: Laboratory Results - last 24 hr 09/23/24 09/23/24 09/23/24 17:50 17:55 18:30 WBC 27.6 H RBC 4.23 L Hgb 13.6 Hct 41.9 MCV 99.1 H MCH 32.2 H MCHC 32.5 RDW Std Deviation 49.0 H RDW Coeff of Andrey 13.6 Plt Count 103 L MPV 9.6 Immature Gran % (Auto) 0.100 Neut % (Auto) 13.7 L Lymph % (Auto) 83.8 H [place] % (Auto) 1.4 Eos % (Auto) 0.8 Baso % (Auto) 0.2 Absolute Neuts (auto) 3.8 Absolute Lymphs (auto) 23.16 H Nucleated RBC % 0 Differential Comment SCANNED Atypical Lymphocytes 1+ Reactive Lymphocytes 2+ PT Cancelled 15.3 H INR Cancelled 1.2 APTT Cancelled 29.8 Sodium 136 Potassium 4.0 Chloride 106 Carbon Dioxide 27.0 Anion Gap 3 L BUN 15 Creatinine 1.28 Estim Creat Clear Calc 60.66 Est GFR (MDRD) Af Amer 69 Est GFR (MDRD) Non-Af 57 L BUN/Creatinine Ratio 11.7 Glucose 119 H Lactic Acid 1.0 Calcium 8.9 Troponin I High Sens 8 Radiography Diagnostic Testing: Clinical Impression(s) from Imaging Studies Brain CT 09/23/24 17:31 IMPRESSION: Atrophy and moderate periventricular white matter ischemic changes. No acute bleed. If concern for acute infarct MRI recommended Electronically Signed: Harvey Hood MD at 18:37 EDT , Chest X-Ray 09/23/24 18:20 IMPRESSION: Asymmetric interstitial thickening in the right lower lobe possibly inflammatory. Other findings as above Electronically Signed: Harvey Hood MD at 18:49 EDT , CT scan of the brain was obtained. There is no acute intracranial abnormality. This was interpreted by the radiologist and was also independently reviewed by myself. PA and lateral chest x-ray was obtained. There are 2 views. On my independent interpretation, lung valdez show inflammatory thickening in the right lower lobe. There is normal cardiac silhouette. Bony thorax is normal. There is no acute process noted. Radiologist also interpreted the x-ray and agrees. EKG Initial EKG: Attestation: I personally reviewed and interpreted this EKG as follows: Interpretation: Sinus Rhythm (67) and No Acute Injury Pattern Comments: EKG was obtained. On my independent interpretation, it showed a normal sinus rhythm with a rate of 67. SC interval, QRS interval, and QTc intervals were all normal. [place] was normal. There are no acute ST or T wave changes. Prior EKG tracings: available for review Prior: Unchanged (06/26/2024) Treatment and Re-Evaluation :: Patient was advised of his findings. Patient's blood pressure improved to 140/69. Patient is feeling better on reevaluation. Patient was instructed to follow-up with his primary care physician in 5 to 7 days. Patient was instructed to return if worse in any way. Patient understood and was agreeable with the plan. All questions were answered. Discharge Plan Triage Chief Complaint: Hypertension ED Provider: Ozzie Schwartz Dx/Rx/DC Orders Clinical Impression: Episode of confusion, Essential hypertension Instructions: ED Hypertension, Established Prescriptions: No Action PreserVision AREDS 2 Plus MV 200 mcg-15 mcg- 5 mg-1 mg capsule PO mecobalamin (vitamin B12) 500 mcg tablet,chewable PO docusate sodium 100 mg capsule 100 mg PO DAILY sennosides-docusate sodium [Stool Softener-Laxative] 8.6-50 mg tablet 1 tab-cap PO QODAY PRN (Reason: constipation) acetaminophen [8 Hour Pain Reliever] 650 mg tablet extended release 650 mg PO Q8H PRN (Reason: pain) celecoxib 100 mg capsule 100 mg PO Q12H Patient Comments: TAKE 1 CAPSULE BY MOUTH TWICE DAILY NEEDED WITH A MEAL FOR PAIN isosorbide mononitrate 30 mg Tablet Extended Release 24 Hr 30 mg PO DAILY 30 Days Qty: 30 2RF tamsulosin 0.4 mg Capsule 0.4 mg PO 1730 30 Days Qty: 30 2RF clopidogrel [Plavix] 75 mg tablet 75 mg PO DAILY Qty: 90 3RF lisinopril 5 mg tablet 5 mg PO DAILY Qty: 90 3RF Primary Care Provider: Opal Javier Referrals: Opal Javier MD [Primary Care Provider] - 5-7 Days Print Language: French Disposition Disposition: Home, Self Care Discharge Date/Time: 09/23/24 19:46
--- NOTE | 2024-09-23 17:31 | CT_ITS ---
STUDY: CT BRAIN WITHOUT CONTRAST REASON FOR EXAM: Male, 79 years old. Confusion RADIATION DOSAGE (If Supplied By Facility): CTDIvol = ( 44.99 ) mGy, DLP = ( 863.60 ) mGycm TECHNIQUE: Transaxial CT imaging of the brain was performed without administration of intravenous contrast material. Individualized dose optimization techniques were used for this CT. COMPARISON: June 18, 2024. FINDINGS: Normal soft tissue structures. Normal calvarium. Calcific plaquing cavernous carotids Mild atrophy and moderate periventricular white matter ischemic changes.. Normal basal ganglia and thalami. Normal brainstem. Normal cerebellum. There is no intracranial hemorrhage. There are no findings of an acute ischemic infarction. Mild mucosal thickening right ethmoid air cells. Postsurgical changes of the right orbit No significant change since prior exam CT/Brain/Head without Contrast IMPRESSION: Atrophy and moderate periventricular white matter ischemic changes. No acute bleed. If concern for acute infarct MRI recommended Electronically Signed: Harvey Hood MD at 18:37 EDT ,
--- NOTE | 2024-09-23 17:31 | EKG12_ITS ---
Test Reason : DIZZINESS Blood Pressure : */* mmHG Vent. Rate : 67 BPM Atrial Rate : 67 BPM P-R Int : 130 ms QRS Dur : 104 ms QT Int : 412 ms P-R-T Axes : 64 35 24 degrees QTcB Int : 435 ms Normal sinus rhythm Normal ECG Confirmed by MILA ROSADO, MAUREEN ([id number]), video tape editor YEIMI GIBSON ([id number]) on 09/24/2024 8:22:53 AM Referred By: Confirmed By: MAUREEN ZARAGOZA MD
[2024-09-23 18:07] VITALS: BP 131/91; BP 135/84; BP 139/94; PULSE 68; PULSE 72; PULSE 82
[2024-09-23 18:11] LABS: Absolute Lymphocyte Count 23.16 X10^3/uL (0.83-4.51); Absolute Neutrophil Count 3.8 X10^3/uL (2.0-7.7); Basophil# 0.05 X10^3/uL; Basophil% 0.2 % (0-1); Eosinophil# 0.21 X10^3/uL; Eosinophils% 0.8 % (0-5); Hematocrit 41.9 % (40-54); Hemoglobin 13.6 g/dL (13.0-16.5); Lymphocyte # 23.16 X10^3/ul (0.83-4.51); Lymphocyte % 83.8 % (19-41); Mean Corp Hgb Conc 32.5 g/dL (32-36); Mean Corpuscular Hgb 32.2 pg (27.0-32.0); Mean Corpuscular Volume 99.1 fL (80-94); Mean Platelet Vol. 9.6 fl (6.2-12.0); Monocyte# 0.38 X10^3/uL; Monocyte% 1.4 % (0-10); NRBC Flagged by Analyzer 0 % (0-5); Neutrophil % 13.7 % (47-70); POSITIVE DIFFERENTIAL YES; POSITIVE MORPHOLOGY YES; Platelet Count 103 K/mm3 (150-450); RBC Distribution Width CV 13.6 % (11.6-14.6); Red Blood Count 4.23 M/mm3 (4.6-6.2); White Blood Count 27.6 K/mm3 (4.4-11.0)
[2024-09-23 18:17] LABS: Differential Indicated SCAN CRITERIA MET
--- NOTE | 2024-09-23 18:20 | RAD_ITS ---
STUDY: X-RAY CHEST REASON FOR EXAM: Male, 79 years old. Cough TECHNIQUE: PA and lateral COMPARISON: June 26, 2024 FINDINGS: Elevated right hemidiaphragm and asymmetric interstitial thickening in the right lower lobe possibly representing inflammatory changes.. There is no demonstrated pleural abnormality. Normal size heart. Markedly tortuous thoracic aorta. Cannot definitively exclude aneurysm of the aortic knob or proximal descending thoracic aorta however this is unchanged since previous exam CT would be useful for more definitive evaluation if clinically warranted Normal visualized pulmonary arteries. .. Postop change status post median sternotomy and CABG Normal visualized thoracic spine. Normal visualized ribs, clavicles, and shoulders. There is no demonstrated abnormality of the visualized soft tissue structures of the upper abdomen. RAD/Chest PA and Lateral IMPRESSION: Asymmetric interstitial thickening in the right lower lobe possibly inflammatory. Other findings as above Electronically Signed: Harvey Hood MD at 18:49 EDT ,
--- NOTE | 2024-09-23 18:23 | NURSING ---
BLUE TOP NEEDS REDRAWN, TOO SHORT
[2024-09-23 18:26] LABS: Anion Gap 3 (5-15); BUN 15 mg/dL (7-18); BUN/Creat Ratio 11.7 RATIO (10-20); Calcium,Total 8.9 mg/dL (8.5-10.1); Chloride 106 mmol/L (98-107); Creatinine, Serum 1.28 mg/dL (0.70-1.30); EST Glomerular Filtration Rate 57 mL/min (>60); Est Glom Filt Rate - Afr Amer 69 mL/min (>60); Estimated Creatinine Clearance 60.66 ml/min; Glucose 119 mg/dL (74-106); Sodium Level 136 mmol/L (136-145); Troponin-I HS 8 pg/mL (3.0-78.0)
[2024-09-23 18:45] VITALS: BP 140/69; PULSE 66; RESP 18; TEMP 37.1; O2SAT 98
[2024-09-23 19:03] LABS: International Normalized Ratio 1.2; Prothrombin Time (Protime)PT. 15.3 SECONDS (11.7-14.9)
[2024-09-23 19:04] LABS: Partial Thromboplast Time 29.8 Seconds (24.1-36.2)
[2024-09-23 19:32] VITALS: BP 155/90; PULSE 67; RESP 17; TEMP 36.7; O2SAT 99
[2024-09-23 20:00] LABS: Differential Comment SCANNED
[2024-09-23 20:01] LABS: Atypical Lymphocyte 1+ %; Reactive Lymphocyte 2+
== END 2024-09-23 19:46 | disposition home or self-care (01) ==
PROVIDERS: Emergency Provider Emergency Medicine; PCP Internal Medicine; Visit Provider Emergency Medicine
DX: R41.0 Disorientation, unspecified (principal); I10 Essential (primary) hypertension; I25.2 Old myocardial infarction; I71.40 Abdominal aortic aneurysm, without rupture, unspecified; I25.10 Atherosclerotic heart disease of native coronary artery without angina pectoris; E66.9 Obesity, unspecified; K21.9 Gastro-esophageal reflux disease without esophagitis; N42.9 Disorder of prostate, unspecified; M19.011 Primary osteoarthritis, right shoulder; M19.012 Primary osteoarthritis, left shoulder; M48.02 Spinal stenosis, cervical region; Z88.1 Allergy status to other antibiotic agents; Z88.0 Allergy status to penicillin; Z86.2 Personal history of diseases of the blood and blood-forming organs and certain disorders involving the immune mechanism; Z95.1 Presence of aortocoronary bypass graft; Z85.6 Personal history of leukemia; Z87.11 Personal history of peptic ulcer disease; Z79.02 Long term (current) use of antithrombotics/antiplatelets; Z79.899 Other long term (current) drug therapy; Z87.891 Personal history of nicotine dependence
CPT/HCPCS: 70450; 71046; 80048; 83605; 84484; 85025; 85610; 85730; 87631; 93005; 99285; A4216

== ENCOUNTER 2025-01-13 15:47 | Emergency (ER) | payer MEDICARE, SELFPAY ==
[2024-05-12 14:06] VITALS: BMI 36.0
[2025-01-13 15:48] VITALS: BP 136/75; PULSE 66; RESP 16; TEMP 36.4; O2SAT 98; BMI 35.4
--- NOTE | 2025-01-13 16:36 | EKG12_ITS ---
Test Reason : Blood Pressure : */* mmHG Vent. Rate : 68 BPM Atrial Rate : 68 BPM P-R Int : 130 ms QRS Dur : 108 ms QT Int : 436 ms P-R-T Axes : 80 36 48 degrees QTcB Int : 463 ms Normal sinus rhythm Normal ECG Confirmed by KARLY OSORIO ([id number]), mapping editor KASHMIR BRIONES ([id number]) on 01/17/2025 7:14:43 AM Referred By: Confirmed By: KARLY OSORIO
--- NOTE | 2025-01-13 16:37 | EX.ED.DYSGE1 ---
HPI History of Present Illness Chief Complaint: Weakness Informant: patient and family (Daughter and ex-.) Onset/Context/Timing Onset: Today Context: Gradual Onset Timing: Continuous Current Severity: Mild Maximum Severity: Mild Narrative Narrative: 79-year-old male past medical history of chronic lymphocytic leukemia, prior MA and dementia. Today he was in a [employer] store and just felt generalized weakness. States he is feeling better currently. Denies any headache. Denies any chest pain. Denies any shortness of breath. Denies any nausea, vomiting or diarrhea. Denies any fever or chills. Denies any dysuria. Denies any recent falls. Prior similar symptoms: No Recent Illness/Hospitalization: No PFSH PFS Medical History Altered mental status Disorientation Leukocytosis Transient visual loss of both eyes Primary osteoarthritis, left shoulder Primary osteoarthritis, right shoulder Left shoulder pain Right shoulder pain Wears partial dentures Wears glasses Depression Alcohol use Ambulates with cane Arthritis Prostate disease Anemia Excessive bleeding Easy bruising Injury of back Back pain History of leukemia Injury of head and neck Gastric reflux Former smoker Shortness of breath on exertion History of pain when walking History of edema History of echocardiogram Normal stress echocardiogram History of stress test Cardiology follow-up encounter History of heart attack Thrombocytopenia Old inferior wall myocardial infarction (1990) Abdominal aortic aneurysm (AAA) 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 Chronic lymphocytic leukemia Cervical stenosis of spinal canal (12/10/19) Incontinence Obesity Erectile dysfunction Peptic ulcer Carotid artery stenosis without cerebral infarction Hyperlipidemia Essential hypertension Home Medications ?Medication ?Instructions ?Recorded ?Last Taken ?Type clopidogrel 75 mg tablet (Plavix) 75 mg PO DAILY heart #90 tabs 02/06/24 Unknown Rx acetaminophen 650 mg 650 mg PO Q8H PRN pain 06/19/24 Unknown History tablet,extended release (8 Hour Pain Reliever) tamsulosin 0.4 mg capsule 0.4 mg PO 1730 30 days #30 caps 06/28/24 Unknown Rx lisinopril 5 mg tablet 5 mg PO DAILY #90 tabs 09/16/24 Unknown Rx isosorbide mononitrate 30 mg 30 mg PO DAILY 30 days #90 tabs 12/29/24 Unknown Rx tablet,extended release 24 hr Allergy/AdvReac Type Severity Reaction Status Date / Time Penicillins Allergy Hives Verified 12/06/24 09:59 vancomycin Allergy Rash Verified 12/06/24 09:59 carvedilol (From Coreg) AdvReac Intermediate Unknown Verified 12/06/24 09:59 doxycycline AdvReac Intermediate GI Verified 12/06/24 09:59 intolerance Family History Mother Cancer Father Diabetes Heart disease Hypertension Sister Diabetes Surgical History Hx of cystoscopy (~2023) History of left heart catheterization (05/17/21) History of coronary angioplasty (1990) H/O coronary artery bypass surgery (1991) History of coronary artery stent placement (05/25/21) History of cervical spinal surgery (12/20/19) History of endovascular stent graft for abdominal aortic aneurysm (AAA) (11/07/16) Social History household members: none Smoking Status: Former smoker how long ago did patient quit smoking: Quit 05/2007, smoked 1 ppd until quit. alcohol intake: former substance use type: does not use caffeine: Yes Type: coffee Number of servings: 2 ROS ROS ED ROS Narrative Generalized weakness today. States she is feeling better. Denies any recent illness. Constitutional Constitutional ED: Denies chills or fever(s) Eyes Eyes: Denies blurry vision ENT ENT ED: Denies ear pain Cardiovascular Cardiovascular: Denies chest pain Respiratory/Chest Respiratory/Chest: Denies cough or dyspnea Gastrointestinal Gastrointestinal: Denies abdominal pain, diarrhea, melena, nausea or vomiting Genitourinary Genitourinary ED: Denies dysuria Musculoskeletal Musculoskeletal: Denies arthralgias or back pain Integumentary Denies abscess or Abrasions Neurologic Neurologic: Denies headache(s) Psychiatric Psychiatric: Denies anxiety Endocrine Endocrinology: Denies cold intolerance Hematologic/Lymphatic Hematologic/Lymphatic: Reports none Allergic/Immunologic Allergic/Immunologic ED: Denies mouth swelling, tongue swelling or urticaria EXAM Physical Exam Narrative Exam Narrative: Well-appearing 79-year-old male. Vital signs are stable he is afebrile he does not look septic toxic no distress. Ex- and daughter at bedside. Pulse ox 98% on room air no hypoxia. H EENT exam pupils round react light. Extra motions are intact. Moist mucous membranes. No facial droop. No trauma. Neck nontender no meningismus. No lymphadenopathy. Back nontender. Lungs clear to auscultation bilaterally. Heart regular rhythm rate about 65 no murmur. Chest wall ribs nontender. Abdomen soft nontender. No peritoneal signs. Pelvic girdle intact. Moving all 4 extremities. Normal range of motion. Normal strength. Bilateral trace ankle edema. Normal dorsi plantarflexion. Normal 5 out of 5 physical science professor strength. Neurologically he is awake and alert. He knows he is at the hospital. He is answering questions following commands. He has had mild confusion with his dementia which is his baseline. Const Vital Signs: 01/13/25 15:47 01/13/25 15:48 01/13/25 16:47 Temperature 97.6 F L Temperature Source Temporal Pulse Rate 66 62 Respiratory Rate 16 18 Respiratory Effort Normal Non-Labored Respiratory Pattern Normal Blood Pressure 136/75 H 131/81 H Blood Pressure Mean 95 97 Pulse Ox 98 95 Oxygen Delivery Method Room Air 01/13/25 18:00 01/13/25 19:00 Temperature Temperature Source Pulse Rate 85 81 Respiratory Rate 20 H 18 Respiratory Effort Respiratory Pattern Blood Pressure 145/83 H Blood Pressure Mean 103 Pulse Ox 95 97 Oxygen Delivery Method Room Air Positive well nourished and well developed; Negative for cachectic, contractures or unkempt General Appearance ED: well developed and NAD; Negative for unkempt, cachectic, contractures, cyanotic, diaphoretic or pallor Nutritional Appearance: Negative for cachectic HEENT Reports moist mucous membranes Negative for trauma or tenderness Eyes PERRL and EOMs intact bilaterally Neck no lymphadenopathy, supple and no JVD Chest Wall inspection of chest normal and palpation of chest normal Resp normal respiratory effort and clear to auscultation bilaterally Effort and Inspection: Negative for retractions Auscultation: Negative for rales, rhonchi, wheezes or diminished lung sounds Cardio regular rate, regular rhythm, S1 normal heart sound, S2 normal heart sound and no murmurs GI normal to inspection, nondistended, normoactive bowel sounds, non-tender, non-distended and no masses Palpation: soft; Negative for tender, guarding or rebound tenderness present Back/Spine no CVA tenderness General Back: Negative for CVA tenderness Cervical Spine: Negative for cervical spine tenderness Thoracic Spine / Upper Back: Negative for thoracic spinal tenderness Lumbar Spine / Lower Back: Negative for lumbar spinal tenderness Extremity normal to inspection General Extremety ED: Negative for edema or tenderness General Extremity: Negative for edema Neuro oriented x3 and CN's II-XII intact bilaterally Sensorium / Orientation: alert; Negative for orientation impaired, lethargic or stuporous Motor Exam: strength 5/5 throughout Psych mental status grossly normal Appearance: Negative for unkempt Mood & Affect: Negative for depressed, anxious or tearful Skin no rashes or lesions noted and no wounds General Skin Exam: Negative for jaundice or pallor Lesions: No lesion noted Rashes: No rashes noted Trauma: Negative for abrasion Wounds: Negative for wounds noted MDM MDM MDM Narrative Medical decision making narrative: 79-year-old male generalized weakness currently no distress benign exam. Screening lab workup. No obvious signs of infection. Currently no fever. Repeat exam patient doing well at 7 PM. Patient just gave his urine so we will send it for UA. Nurses got up to walk him the steroid dose. I have gone over the test that we have back so far with he and family. Repeat exam at 7:43 PM patient doing well. UA was negative. He ambulated well according to family and nursing staff. He and family are comfortable with him being discharged home with outpatient follow-up with his primary care physician. History & Record Review Discussion w/independent historian: Patient Additional record(s) reviewed:: Prior inpatient record, Prior outpatient record, Prior ED visit and Prior labs Lab Data Attestation: I reviewed the patient's lab results. Lab results narrative: CBC showed a white count of 28.2 he does have a history of CLL. H&H 13 and 40. Platelets 101. Electrolytes show a gap 4. Normal BUN of 18 and creatinine 1.29. Glucose 134. COVID and flu negative. UA negative. 250 occult blood no nitrates. 5-10 red cells no white cells. No bacteria. Labs: Laboratory Results - last 24 hr 01/13/25 01/13/25 16:52 19:08 WBC 28.2 H RBC 4.14 L Hgb 13.4 Hct 40.1 MCV 96.9 H MCH 32.4 H MCHC 33.4 RDW Std Deviation 47.2 H RDW Coeff of Andrey 13.2 Plt Count 101 L MPV 9.3 Immature Gran % (Auto) 0.200 Neut % (Auto) 18.9 L Lymph % (Auto) 78.7 H Steele % (Auto) 1.8 Eos % (Auto) 0.2 Baso % (Auto) 0.2 Absolute Neuts (auto) 5.3 Absolute Lymphs (auto) 22.21 H Nucleated RBC % 0 Platelet Estimate SLT DEC Sodium 137 Potassium 4.2 Chloride 106 Carbon Dioxide 27.0 Anion Gap 4 L BUN 18 Creatinine 1.29 Estim Creat Clear Calc 60.45 Est GFR (MDRD) Af Amer 69 Est GFR (MDRD) Non-Af 57 L BUN/Creatinine Ratio 14.0 Glucose 134 H Calcium 8.8 Urine Color Yellow Urine Clarity Clear Urine pH 6.0 Ur Specific [place] 1.020 Urine Protein 100 H Urine Glucose (UA) Normal Urine Ketones Negative Urine Occult Blood 250 H Urine Nitrite Negative Urine Bilirubin Negative Urine Urobilinogen 1 H Ur Leukocyte Esterase Negative Urine RBC 5-10 SEEN Urine WBC 0 SEEN Ur Squamous Epith Cells 0 SEEN Urine Bacteria 0 SEEN Urine Mucus 1+ Radiography Chest X-Ray - ED: 2 View, Read by ED Physician, Lungs, Mediastinum, Bony Structures, No Acute Disease and Chronic Changes Diagnostic Testing: Clinical Impression(s) from Imaging Studies Chest X-Ray 01/13/25 17:25 IMPRESSION: 1. Chronic interstitial change, [id number]. Superimposed infection not excluded. 2. Tortuous and ectatic aorta. CT with contrast is recommended to rule out aneurysm [facility], 2 views AP and lateral, interpreted both by myself and the radiologist. Prior CABG. Chronic changes. No cardiomegaly. No effusions. No pneumonia. Rhythm Strip Rhythm Strip: Sinus Rhythm Rate: 68 Ectopy: None EKG Initial EKG: Attestation: I personally reviewed and interpreted this EKG as follows: Interpretation: Sinus Rhythm and No Acute Injury Pattern Comments: Normal sinus rhythm rate of 68 no acute signs of MA or ischemia. Discharge Plan Triage Chief Complaint: Weakness ED Provider: Piyush Gómez Dx/Rx/DC Orders Clinical Impression: Generalized muscle weakness, History of chronic lymphocytic leukemia, History of dementia Instructions: ED Weakness (Uncertain Cause) Prescriptions: No Action acetaminophen [8 Hour Pain Reliever] 650 mg tablet extended release 650 mg PO Q8H PRN (Reason: pain) tamsulosin 0.4 mg Capsule 0.4 mg PO 1730 30 Days Qty: 30 2RF clopidogrel [Plavix] 75 mg tablet 75 mg PO DAILY Qty: 90 3RF lisinopril 5 mg tablet 5 mg PO DAILY Qty: 90 3RF isosorbide mononitrate 30 mg tablet extended release 24 hr 30 mg PO DAILY 30 Days Qty: 90 1RF Primary Care Provider: Opal Javier Referrals: Opal Javier MD [Primary Care Provider] - 3-5 Days Activity Restrictions/Additional Instructions: Tests look good today. Plenty of fluids and rest. Follow-up with your primary care physician. Print Language: Kosovan Disposition Disposition: Home, Self Care
[2025-01-13 16:47] VITALS: BP 131/81; PULSE 62; RESP 18; O2SAT 95
[2025-01-13 17:09] LABS: Absolute Lymphocyte Count 22.21 X10^3/uL (0.83-4.51); Absolute Neutrophil Count 5.3 X10^3/uL (2.0-7.7); Basophil# 0.07 X10^3/uL; Basophil% 0.2 % (0-1); Eosinophil# 0.05 X10^3/uL; Eosinophils% 0.2 % (0-5); Hematocrit 40.1 % (40-54); Hemoglobin 13.4 g/dL (13.0-16.5); Lymphocyte # 22.21 X10^3/ul (0.83-4.51); Lymphocyte % 78.7 % (19-41); Mean Corp Hgb Conc 33.4 g/dL (32-36); Mean Corpuscular Hgb 32.4 pg (27.0-32.0); Mean Corpuscular Volume 96.9 fL (80-94); Mean Platelet Vol. 9.3 fl (6.2-12.0); Monocyte# 0.51 X10^3/uL; Monocyte% 1.8 % (0-10); NRBC Flagged by Analyzer 0 % (0-5); Neutrophil # 5.32 X10^3/uL (2.7-7.7); Neutrophil % 18.9 % (47-70); POSITIVE DIFFERENTIAL YES; Platelet Count 101 K/mm3 (150-450); RBC Distribution Width CV 13.2 % (11.6-14.6); RBC Distribution Width SD 47.2 fl (35.1-43.9); Red Blood Count 4.14 M/mm3 (4.6-6.2); White Blood Count 28.2 K/mm3 (4.4-11.0)
[2025-01-13 17:13] LABS: Differential Indicated SCAN CRITERIA MET
[2025-01-13 17:20] LABS: Anion Gap 4 (5-15); BUN 18 mg/dL (7-18); Calcium,Total 8.8 mg/dL (8.5-10.1); Chloride 106 mmol/L (98-107); Creatinine, Serum 1.29 mg/dL (0.70-1.30); EST Glomerular Filtration Rate 57 mL/min (>60); Est Glom Filt Rate - Afr Amer 69 mL/min (>60); Estimated Creatinine Clearance 60.45 ml/min; Glucose 134 mg/dL (74-106); Potassium 4.2 mmol/L (3.5-5.1); Sodium Level 137 mmol/L (136-145)
--- NOTE | 2025-01-13 17:25 | RAD_ITS ---
PROCEDURE: CHEST PA AND LATERAL REASON FOR EXAM: Weakness TECHNIQUE: Frontal and lateral views of the chest. COMPARISON: 09/23/2024 FINDINGS: The heart size is normal. The thoracic aorta is tortuous and calcified. Portion of the aorta is seen in the posterior mediastinum on the lateral view. There are chronic-appearing changes of both lungs. Increased opacity in the right base. Degenerative changes are identified within the thoracic spine. RAD/Chest PA and Lateral IMPRESSION: 1. Chronic interstitial change, [id number]-left. Superimposed infecti on not excluded. 2. Tortuous and ectatic aorta. CT with contrast is recommended to rule out a neurysm Reading Location: [facility]
[2025-01-13 17:57] LABS: Platelet Estimate SLT DEC (ADEQ)
[2025-01-13 18:00] VITALS: BP 145/83; PULSE 85; RESP 20; O2SAT 95
--- NOTE | 2025-01-13 18:21 | CM.ED ---
Social work Reason for referral: validation of advance directives Referral source: case find This SW identified need to validate patient's advance directives. This SW entered patient's room, introducing self and role at [facility]. Patient welcomed SW visit and patient introduced guests at bedside as patient's daughter, Blessing, and patient's ex-, Molly. Patient gave permission to speak in front of patient's guests. Patient confirmed having the following people listed for advance directives: primary HCPOA is friend Morena Velazquez; secondary HCPOA is civil litigation attorney Niko Amaya. Patient stated also having a DNR order on patient's fridge at home; patient was asked to bring this order in to have on file. Clara Ritchie, MINK SLICER, MELTING FURNACE SKIMMER
--- NOTE | 2025-01-13 18:25 | CM.ED ---
Social work While present validating patient's advance directives, patient's daughter, Blessing, asked this SW if there were options for patient to receive additional help at home. Patient reportedly lives alone and only has an individual from [facility], Elizabeth, come in once a month to check in. Patient is reportedly independent with all ADLs and IADLs, though patient reports increasing weakness at times. Patient's daughter states ability to check in often with patient, though states having some additional supports in the home would be helpful. Patient and patient's daughter both state a desire to keep patient at home as long as possible and patient expressed not wanting to be placed in a correction yet. Patient's doctor, Opal Javier, has reportedly expressed to patient the need to think about assisted living, but patient is denying this need at this time and desires to stay at home. Patient's daughter states believing that patient is safe to stay at home currently. Patient open to [facility] referral as well as school health aide list. Patient given these resources. Patient denies further needs at this time. Clara Ritchie, SENIOR IT AUDITOR, PAD TUFTER
[2025-01-13 19:00] VITALS: PULSE 81; RESP 18; O2SAT 97
[2025-01-13 19:12] LABS: Bacteria 0 SEEN /hpf (None Seen); Squamous Epithelial Cells - UA 0 SEEN /hpf (0-5); White Blood Cells 0 SEEN /hpf (0-5)
[2025-01-13 19:13] LABS: Color, Urine Yellow (Yellow); Glucose, Dipstick Normal (Normal); Ketone-Dipstick Negative (Negative); Leukocyte Esterase-Dipstick Negative /ul (Negative); Nitrite-Dipstick Negative (Negative); Occult Blood-Urine 250 /ul (Negative); Protein-Dipstick 100 mg/dl (Negative); Urine Bilirubin Dipstick Negative (Negative); Urine Clarity Clear (Clear); Urine Urobilinogen 1 mg/dl (Normal)
[2025-01-13 19:35] LABS: Mucous, Urine 1+ /hpf (<or=2+); Red Blood Cells-Urine 5-10 SEEN /hpf (0-5)
--- NOTE | 2025-01-18 19:37 | CM.ED ---
Social work Received email from Misty Velazquez with [facility] stating an inability to reach patient despite several attempts since 01/13/25. stated [facility] would be happy to assist should patient or patient's daughter reach back out. Clara Ritchie, FLIGHT OPERATIONS MANAGER, AUTO REBUILDER
== END 2025-01-13 19:51 | disposition home or self-care (01) ==
PROVIDERS: Emergency Provider Emergency Medicine; PCP Internal Medicine; Visit Provider Emergency Medicine
DX: M62.81 Muscle weakness (generalized) (principal); F03.90 Unspecified dementia, unspecified severity, without behavioral disturbance, psychotic disturbance, mood disturbance, and anxiety; I10 Essential (primary) hypertension; I25.2 Old myocardial infarction; I71.40 Abdominal aortic aneurysm, without rupture, unspecified; N42.9 Disorder of prostate, unspecified; Z88.0 Allergy status to penicillin; Z88.1 Allergy status to other antibiotic agents; Z95.1 Presence of aortocoronary bypass graft; Z85.6 Personal history of leukemia; Z79.02 Long term (current) use of antithrombotics/antiplatelets; Z79.899 Other long term (current) drug therapy; Z87.891 Personal history of nicotine dependence
CPT/HCPCS: 71046; 80048; 81001; 85025; 87631; 93005; 99285; A4216

== ENCOUNTER 2025-06-02 09:54 | Outpatient (CLI) | payer MEDICARE, SELFPAY ==
[2024-05-12 14:06] VITALS: BMI 36.0
[2025-06-02 10:05] LABS: Mucous, Urine 0 SEEN /hpf (<or=2+)
[2025-06-02 11:15] LABS: Color, Urine Yellow (Yellow); Glucose, Dipstick Normal (Normal); Hematocrit 40.0 % (40-54); Hemoglobin 13.2 g/dL (13.0-16.5); Immature Granulocytes Count 0.080 X10^3/uL (0.0-0.0); Ketone-Dipstick Negative (Negative); Leukocyte Esterase-Dipstick Negative /ul (Negative); Mean Corp Hgb Conc 33.0 g/dL (32-36); Mean Corpuscular Volume 98.8 fL (80-94); Mean Platelet Vol. 9.6 fl (6.2-12.0); NRBC Flagged by Analyzer 0 % (0-5); Nitrite-Dipstick Negative (Negative); Occult Blood-Urine 250 /ul (Negative); POSITIVE COUNT YES; POSITIVE DIFFERENTIAL YES; POSITIVE MORPHOLOGY YES; Platelet Count 104 K/mm3 (150-450); Protein-Dipstick 100 mg/dl (Negative); RBC Distribution Width CV 13.2 % (11.6-14.6); RBC Distribution Width SD 47.5 fl (35.1-43.9); Red Blood Count 4.05 M/mm3 (4.6-6.2); Specific Gravity, Urine 1.015 (1.002-1.030); Urine Bilirubin Dipstick Negative (Negative)
[2025-06-02 11:17] LABS: Differential Indicated SCAN CRITERIA MET
[2025-06-02 11:19] LABS: White Blood Count 37.3 K/mm3 (4.4-11.0)
[2025-06-02 11:35] LABS: Red Blood Cells-Urine 10-25 SEEN /hpf (0-5); Squamous Epithelial Cells - UA 0-5 SEEN /hpf (0-5)
[2025-06-02 11:37] LABS: Differential Comment SCANNED
[2025-06-02 12:05] LABS: AST(SGOT) 26 U/L (<=37); Alanine Aminotransfer ALT/SGPT 17 U/L (<=46); Albumin, Serum 4.2 g/dL (3.4-4.8); Alkaline Phosphatase 84 U/L (40-129); Anion Gap 9 (5-15); BUN 17 mg/dL (4-19); BUN/Creat Ratio 11.6 RATIO (10-20); Calcium,Total 9.1 mg/dL (7.6-11.0); Carbon Dioxide 24.9 mmol/L (21.0-32.0); Chloride 104 mmol/L (98-108); Globulin 2.7 g/dL (2.2-4.2); Glucose 110 mg/dL (70-99); Magnesium 2.0 mg/dL (1.5-2.2); Potassium 4.5 mmol/L (3.3-5.1)
[2025-06-02 12:06] LABS: PSA,Total - Annual Screen 1.10 ng/mL (0.02-4.00); Vitamin D,25 Hydroxy 29.2 ng/mL (30-100)
--- OUTSIDE RECORDS SUMMARY | 2025-06-02 18:16 | XMS RPT_ITS | CCD ---
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 Sylvester Javier Primary Care Provider Dr. Sylvester Javier Referring Provider [phone] DELON Velasquez Attending Provider Ford FIGUEROA, CHELO Miller Attending Provider [phone] Dr. Sylvester Javier Attending Provider [phone] Avery Handy DO Unavailable [phone] Sylvester Javier MD Primary Care Provider [phone] KIKI WEN CNM Primary Care Physician [phone] Sylvester Javier MD Primary Care Provider [phone] Dr. Sylvester Javier Primary Care Provider Dr. Sylvester Javier Attending Provider [phone] Dr. Sylvester Javier Referring Provider [phone] DELON Velasquez Attending Provider Dr. Sylvester Javier Primary Care Provider Dr. Sylvester Javier Referring Provider [phone]) DELON Velasquez Attending Provider Dr. Sylvester Javier Attending Provider [phone] Avery Handy DO L Unavailable [phone] Sylvester Javier MD Primary Care Provider [phone] [facility] Unavailable [phone] Dr. Sylvester Javier Primary Care Provider Dr. Sylvester Javier Attending Provider Dr. Sylvester Javier Referring Provider Dr. Yohannes Ricci Attending Provider [phone] Sylvester Javier MD Primary Care Provider [phone] Dr. Sylvester Javier Primary Care Provider Dr. Sylvester Javier Attending Provider Dr. Sylvester Javier Referring Provider [phone] MD Steven Cardoza Attending Provider [phone] Dr. Yohannes Ricci Attending Provider [phone] KERSTETTER CNM, KIKI E Primary Care Unavaila ble [facility] [employer] POLICE OFFICER-WINCH TRUCK OPERATOR, CORTMARGARITA Attending Unava ilable KERSTETTER CNM, KIKI E Primary Care Unavaila ble [facility] [employer] POLICE OFFICER-WINCH TRUCK OPERATOR, CORTMARGARITA Attending Unava ilable KERSTETTER CNM, KIKI E Primary Care Unavaila ble KERVIN ROSADO, MARK Fong Attending Unavailable KERSTETTER CNM, KIKI E Primary Care Unavaila ble [facility] [employer] POLICE OFFICER-WINCH TRUCK OPERATOR, MIRIAN Attending Unava ilable KERSTETTEAlejandro BENSON, KIKI E Primary Care Unavaila ble [place] [employer] OFFICER-WINCH TRUCK OPERATOR, MIRIAN Attending Unava ilable Dr. Sylvester Javier Primary Care Provider Dr. Sylvester Javier Attending Provider Dr. Sylvester Javier Referring Provider MD Steven Cardoza Attending Provider [phone] Dr. Yohannes Ricci Attending Provider [phone] Sylvester Javier MD Primary Care Provider [phone] Alisha ROSADO, Inocencio Unavailable Yaya, Sylvester Primary Care Unavailable Yaya, Sylvester Attending Unavailable Jermaine Xiao Attending Unavailable Jermaine Xiao Referring Unavailable Yaya, Sylvester Primary Care Unavailable Yaya, Sylvester Primary Care Unavailable Ozzie Schwartz Attending Unavailable Yaya, Sylvester Primary Care Unavailable Michael Polanco Admitting Unavailable Nkio Ibrahim Consulting Unavailable Wendy Sheth Attending Unavailable Adeli, Amir Consulting Unavailable Hinduja, Radha Consulting Unavailable Ron, Yoselyn Consulting Unavailable Zha, Siomara Consulting Unavailable Manuela, Randy Consulting Unavailable Turner, Chrissie Consulting Unavailable Bittar, Rd Consulting Unavailable Darien Arvizu Consulting Unavailable Kaushal Gee Consulting Unavailable Vanesa Tello Consulting Unavailable Earl Infante Consulting Unavailable Shayla Silver Consulting Unavailable George Melendez Consulting Unavailable Robb Bagley Consulting UnavailZak Brown Consulting Unavailable Gwyn Chavira Consulting Unavailable Jorge Santana Consulting Unavailable Nancy Singh Consulting Unavailable Shyla Sutherland Consulting Unavailable Michael Polanco Consulting Unavailable Meryl, Wendy Jennifer Consulting Unavailable Yaya, Sylvester Primary Care Unavailable Yaya, Sylvester Attending Unavailable Yaya, Sylvester Referring Unavailable Yaya, Sylvester Primary Care Unavailable Yaya, Sylvester Attending Unavailable Yaya, Sylvester Referring Unavailable Yaya, Sylvester Primary Care Unavailable Yaya, Sylvester Attending Unavailable Yaya, Sylvester Referring Unavailable Yaya, Sylvester Primary Care Unavailable Jermaine Xiao Referring Unavailable Jermaine Xiao Attending Unavailable Yaya, Sylvester Primary Care Unavailable Piyush Gómez Attending Unavailable Yaya, Sylvester Primary Care Unavailable John Johnson Attending Unavailabl e Yaya, Sylvester Primary Care Unavailable Yaya, Sylvester Referring Unavailable Tawny Velasquez Attending Unavail able Yaya, Sylvester Primary Care Unavailable XiaoJermaine Attending Unavailable Yaya, Sylvester Referring Unavailable Yaya, Sylvester Primary Care Unavailable Yaya, Sylvester Referring Unavailable Jermaine Xiao Attending Unavailable Michael Polanco Attending Unavailable Ayya, Sylvester Primary Care Unavailable Yohannes Ricci Attending Unavailable Yaya, Sylvester Attending Unavailable Yaya, Sylvester Primary Care Unavailable Yaya, Sylvester Primary Care Unavailable Yaya, Sylvester Attending Unavailable Yaya, Sylvester Referring Unavailable Yan Guerra Consulting Unavailable Terence Clifton Consulting Unavailable Dillon Hancock Consulting Unavailable Funmi Hernandez Consulting Unavailable Yan Bautista Consulting Unavailable Lino León Consulting Unavailable John Dinh Consulting Unavailable Perez Seo Consulting Unavailable Tiara CASING IN LINE FEEDER, Ciara Consulting Unavailable Yaya, Sylvester Referring Unavailable IscFunmi campuzano Attending Unavailable Yaya, Sylvester Primary Care Unavailable Michael Polanco Attending Unavailable Daphnie Perdomo Consulting Unavailable Daphnie Perdomo Admitting Unavailable Yaya, Sylvester Primary Care Unavailable Niko Ibrahim Consulting Unavailable Michael Polanco Admitting Unavailable Wendy Sheth Attending Unavailable John Cabrera Consulting Unavailable Radha Hurtado Consulting Unavailable Yoselyn Velasquez Consulting Unavailable Siomara Butler Consulting Unavailable Randy Roy Consulting Unavailable Chrissie Tompkins Consulting Unavailable Rd Page Consulting Unavailable Darien Arvizu Consulting Unavailable Kaushal Gee Consulting Unavailable Vanesa Tello Consulting Unavailable Earl Infante Consulting Unavailable Shayla Silver Consulting Unavailable George Melendez Consulting Unavailable Robb Bagley Consulting UnavailZak Brown Consulting Unavailable Gwyn Chavira Consulting Unavailable Jorge Santana Consulting Unavailable Nancy Singh Consulting Unavailable Shyla Sutherland Consulting Unavailable Michael Polanco Consulting Unavailable Yan Guerra Consulting Unavailable Terence Clifton Consulting Unavailable Dillon Hancock Consulting Unavailable Funmi Hernandez Consulting Unavailable Yan Bautista Consulting Unavailable Lino León Consulting Unavailable John Dinh Consulting Unavailable Perez Seo Consulting Unavailable Tiara CASING IN LINE FEEDER, Ciara Consulting Unavailable Yaya, Sylvester Primary Care Unavailable Yaya, Sylvester Referring Unavailable Roof CASING IN LINE FEEDER, Aditya H Attending Unavailable Yaya, Sylvester Primary Care Unavailable Roof CASING IN LINE FEEDER, Aditya H Attending Unavailable Roof CASING IN LINE FEEDER, Aditya H Referring Unavailable Yaya, Sylvester Primary Care Unavailable YayaRosa Elenaen Attending Unavailable Yaya, Sylvester Primary Care Unavailable YayaRosa Elenaen Attending Unavailable Yaya, Sylvester Primary Care Unavailable YayaSylvester Attending Unavailable Yaya, Sylvester Primary Care Unavailable YayaSylvester Attending Unavailable Yaya, Sylvester Primary Care Unavailable Yaya, Sylvester Attending Unavailable Sylvester Javier Primary Care Unavailable Daphnie Perdomo Attending Unavailable Michael Polanco Attending Unavailable Daphnie Perdomo Consulting Unavailable Daphnie Perdomo Admitting Unavailable Michael Polanco Consulting Unavailable PROVIDER, UNKNOWN Referring Unavailable SYLVESTER JAVIER Primary Care Unavailable SYLVESTER JAVIER Primary Care Unavailable AVERY PHILLIPS Attending Unavailable CAREY RODRIGUEZ Referring Unavailable CAREY RODRIGUEZ Attending Unavailable SYLVESTER JAVIER Primary Care Unavailable AVERY GARCIA Referring Unavailable INOCENCIO RAINEY Attending Unavailable SYLVESTER JAVIER Primary Care Unavailable AVERY GARCIA Referring Unavailable SYLVESTER JAVIER Primary Care Unavailable SYLVESTER JAVIER Primary Care Unavailable INOCENCIO RAINEY Attending Unavailable SYLVESTER JAVIER Primary Care Unavailable Yaya ROSADO, Dr. Joseph Primary Care Provider Yaya ROSADO, Dr. Joseph Attending Provider Allergies Allergy Classification Reported Allergen(s) Allergy Type Date of Onset Reaction(s) Facility Doxycycline (1 source) Doxycycline Drug Allergy 1 Nausea And Vomiting [facility] Penicillins (antibiotic) (1 source) Penicillins Drug Allergy 1 Hives [facility] (20 sources) doxycycline; Translations: [DOXYCYCLINE] Drug Allergy 7 Intolerance, Weal (disorder) [facility] (20 sources) Penicillins; Translations: [PENICILLINS] Propensity to adverse reactions to drug (disorder) 5 [facility] (20 sources) carvedilol; Translations: [carvedilol] Drug Allergy 1 Unknown, Unknown (qualifier value) [facility] (4 sources) Penicillin; Translations: [penicillin] Drug Allergy Eruption of skin (disorder) [facility] (1 source) carvedilol Drug Allergy 5 [facility] (1 source) Vancomycin Drug Allergy 5 [facility] (1 source) Vancomycin Drug Allergy 5 Rash [facility] 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 Medications Current Medications Medication Drug Class(es) Dates Sig (Normalized) Sig (Original) 8 hr acetaminophen 650 mg extended release oral tablet (2 sources) Start: 06-19-2024 take 1 tablet by mouth every eight hours as needed for pain Acetaminophen (8 Hour Pain Reliever) 650 mg tablet extended release Active 650 mg PO Q8H as needed for pain June 19, 2024 12:00am Start: 05-25-2021 acetaminophen (TYLENOL) tablet 650 mg atorvastatin 20 mg oral tablet (20 sources) HMG-CoA Reductase Inhibitor Start: 10-09-2020 take 1 tablet by mouth once daily atorvastatin (LIPITOR) 20 mg tablet Indications: Hyperlipidemia LDL goal Take 1 tablet by mouth once daily. 90 tablet 3 10/09/2020 Active Start: 04-04-2020 End: 07-03-2021 take 1 tablet by mouth at bedtime Atorvastatin 40 mg tablet Discontinued 40 mg PO AT BEDTIME April 04, 2020 12:00am July 03, 2021 8:41am Start: 08-29-2016 End: 04-04-2020 take 1 tablet by mouth at bedtime Atorvastatin 20 MG tablet Discontinued 20 mg PO AT BEDTIME August 29, 2016 12:00am April 04, 2020 11:18am Comment on above: Take 1 tablet by sebas once daily. clopidogrel 75 mg oral tablet (20 sources) P2Y12 Platelet Inhibitor Start: 05-22-2021 End: 01-26-2025 take 1 tablet by mouth once daily Clopidogrel (Plavix) 75 mg tablet Active 75 mg PO DAILY 90 3 January 26, 2025 8:57am heart Start: 04-04-2020 End: 05-02-2021 take 1 tablet by mouth once daily Clopidogrel (Plavix) 75 mg tablet Discontinued 75 mg PO DAILY 30 April 04, 2020 12:00am May 02, 2021 11:00am Comment on above: Take 75 mg by mouth once daily. cyanocobalamin, vitamin B-12, (VITAMIN B-12 ORAL) (20 sources) take 1 tablet by mouth once daily cyanocobalamin, vitamin B-12, (VITAMIN B-12 ORAL) Take 1 tablet by mouth once daily. Active take 1 tablet by mouth once emilia y cyanocobalamin, vitamin B-12, (VITAMIN B-12 ORAL) Take 1 tablet by mouth once daily. 0 Active Comment on above: Take 1 tablet by sebas once daily. docusate sodium 50 mg / sennosides, long term 8.6 mg oral tablet (11 sources) Start: 06-19-2024 take 2 tablets by mouth once daily as needed senna-docusate (SENNA-S) 8.6-50 mg per tablet Take 2 tablets by mouth once daily. PRN 06/19/2024 Active Start: 06-19-2024 End: 12-06-2024 Sennosides-Docusate Sodium ( Stool Softener-Laxative) 8.6-50 mg tablet Discontinued 1 NMA PO EVERY OTHER DAY as needed for constipation June 19, 2024 12:00am December 06, 2024 11:04am donepezil hydrochloride 5 mg oral tablet (1 source) Start: 06-02-2025 take 1 tablet by mouth at bedtime Donepezil (Aricept) 5 mg tablet Active 5 mg PO AT BEDTIME 90 June 02, 2025 12:00am 24 hr isosorbide mononitrate 30 mg extended release oral tablet (20 sources) Nitrate Vasodilator Start: 06-28-2024 End: 03-30-2025 take 1 tablet by mouth once daily, then take 1 tablet by mouth every twenty-four hours Isosorbide Mononitrate 30 mg tablet extended release 24 hr Active 30 mg PO DAILY 90 March 30, 2025 1:25pm Start: 05-17-2021 End: 06-28-2024 take 1 tablet by mouth once daily, then take 1 tablet by mouth every twenty-four hours Isosorbide Mononitrate 60 mg tablet extended release 24 hr Discontinued 60 mg PO DAILY 90 December 04, 2023 3:27pm June 28, 2024 12:37pm heart Start: 05-02-2021 End: 05-17-2021 take 1 tablet by mouth once daily, then take 1 tablet by mouth every twenty-four hours Isosorbide Mononitrate 30 mg tablet extended release 24 hr Discontinued 30 mg PO DAILY 30 May 02, 2021 12:00am May 17, 2021 1:24pm Comment on above: Take 1 tablet by sebas th once daily. lisinopril 5 mg oral tablet (20 sources) Angiotensin Converting Enzyme Inhibitor Start: 06-28-2024 End: 09-16-2024 take 1 tablet by mouth once lisinopril (ZESTRIL) 5 mg tablet Take 1 tablet by mouth every afternoon. 09/16/2024 Active Start: 03-07-2018 End: 04-03-2020 take 1 tablet by mouth once daily Lisinopril 20 MG tablet Discontinued 20 mg PO DAILY March 07, 2018 12:00am April 03, 2020 3:48pm methylPREDNISolone (1 source) Corticosteroid Start: 05-15-2022 End: 05-21-2022 methylPREDNISolone (MEDROL, VALENCIA,) 4 mg Dose-Pack Indications: Acute midline low back pain without sciatica Follow dosing instructions, take with food. 1 Package 0 05/15/2022 05/21/2022 Active Comment on above: Follow dosing instru ctions, take with food. Multivitamin preparation (3 sources) Start: 09-03-2023 take 1 tablet by mouth once daily Multivitamin Active 1 TABLET PO DAILY September 03, 2023 12:00am Start: 09-03-2023 take 1 tablet by sebas th once daily Multivitamin Active 1 TABLET PO DAILY September 02, 2023 11:00pm 24 hr oxybutynin chloride 5 mg extended release oral tablet (1 source) Cholinergic Muscarinic Antagonist Start: 01-19-2025 take 1 tablet by mouth once daily Oxybutynin Chloride 5 mg tablet extended release 24hr Active mg PO DAILY January 19, 2025 1:00am 3 ml sodium chloride 9 mg/ml injection (5 sources) Start: 05-25-2021 sodium chlorid e flush 0.9 % injection 5-40 mL Start: 05-25-2021 sodium chlorid e flush 0.9 % injection 5-40 mL Start: 05-25-2021 0.9 % sodium c hloride infusion tamsulosin hydrochloride 0.4 mg oral capsule (20 sources) alpha-Adrenergic Nicole Start: 04-03-2020 End: 04-25-2025 Tamsulosin 0.4 mg capsule Active 0.4 mg PO 1730 90 30 April 25, 2025 1:16pm Start: 04-03-2020 End: 06-28-2024 take 1 capsule by mouth twice daily Tamsulosin 0.4 mg capsule Discontinued 0.4 mg PO TWICE A DAY 180 3 December 02, 2022 6:05pm June 28, 2024 12:38pm prostat Comment on above: Take 1 capsule by mo ut daily at bedtime. Take 0.4 mg by mouth once daily. Completed/Discontinued Medications Medication Drug Class(es) Dates Sig (Normalized) Sig (Original) acetaminophen 325 mg / HYDROcodone bitartrate 5 mg oral tablet (10 sources) Opioid Agonist Start: 03-07-2018 End: 04-04-2020 Hydrocodone-Acetami nophen 1 TABLET tablet Discontinued 1 - 2 {tbl} PO EVERY 4 HOURS NEEDED as needed for Pain 12 March 07, 2018 12:00am April 04, 2020 11:19am Pain, unspecified Start: 03-07-2018 End: 04-04-2020 take 1 tablet by mouth every four hours as needed Hydrocodone-Acetaminophen Discontinued 1 - 2 TABLET PO EVERY 4 HOURS NEEDED March 07, 2018 12:00am April 04, 2020 11:19am acyclovir 400 mg oral tablet (20 sources) Herpesvirus Nucleoside Analog DNA Polymerase Inhibitor, Herpes Simplex Virus Nucleoside Analog DNA Polymerase Inhibitor, Herpes Zoster Virus Nucleoside Analog DNA Polymerase Inhibitor Start: 09-03-2023 End: 06-19-2024 take 1 tablet by mouth once daily Acyclovir 400 mg tablet Discontinued 400 mg PO DAILY September 03, 2023 11:39am June 19, 2024 4:52pm Start: 02-13-2023 End: 09-03-2023 take 1 tablet by mouth twice daily Acyclovir 400 mg tablet Discontinued 400 mg PO TWICE A DAY 180 February 13, 2023 12:00am September 03, 2023 11:42am Start: 04-03-2020 End: 04-04-2020 take 1 capsule by mouth twice daily Acyclovir 200 mg capsule Discontinued 400 mg PO TWICE A DAY April 03, 2020 12:00am April 04, 2020 11:17am Start: 04-03-2020 End: 04-04-2020 take 400 mg by mouth twice daily Acyclovir Discontinued 400 MG PO TWICE A DAY April 03, 2020 12:00am April 04, 2020 11:17am Comment on above: Take 400 mg by mouth twice daily. aspirin 81 mg chewable tablet (20 sources) Platelet Aggregation Inhibitor, Nonsteroidal Anti-inflammatory Drug Start: 10-11-2022 aspirin 81 mg oral delayed release tablet Dose : 81 mg = 1 tab(s), Oral, qDay, # 30 tab(s), 0 Refill(s) Start Date: 10/11/22 Status: Ordered Start: 04-24-2022 End: 06-19-2024 take 1 tablet by mouth once daily Aspirin 81 mg tablet,chewable Discontinued 81 mg PO DAILY 90 3 December 02, 2022 6:05pm June 19, 2024 4:52pm Start: 08-29-2016 End: 04-04-2020 take 1 tablet by mouth once daily Aspirin 325 MG tablet Discontinued 325 mg PO DAILY@0800 August 29, 2016 12:00am April 04, 2020 11:17am Comment on above: Take 81 mg by mouth once daily. calcium carbonate 500 mg chewable tablet (20 sources) Start: 11-04-2016 End: 04-04-2020 Calcium Carbonate 200 MG tablet,chewable Discontinued 200 mg PO NEEDED as needed for Indigestion November 04, 2016 1:00am April 04, 2020 11:18am CALCIUM CARBONAT E (TUMS 500 ORAL) Take by mouth as needed. Active CALCIUM CARBONAT E (TUMS 500 ORAL) Take by mouth as needed. 0 Active Comment on above: Take by mouth as nee ded. carvedilol 3.125 mg oral tablet (10 sources) alpha-Adrenergic Nicole, beta-Adrenergic Nicole Start: 0 End: 0 take 1 tablet by mouth twice daily Carvedilol 3.125 MG tablet Discontinued 3.125 mg PO TWICE A DAY 60 3 May 18, 2020 12:00am 2020 4:32pm celecoxib 100 mg oral capsule (7 sources) Nonsteroidal Anti-inflammatory Drug Start: 4 End: 5 take 1 capsule by mouth every twelve hours Celecoxib 100 mg capsule Discontinued 100 mg PO Q12H June 26, 2024 12:00am December 06, 2024 11:03am arthri Start: 01-26-2024 End: 06-19-2024 take 1 capsule by mouth twice daily as needed for pain Celecoxib 100 mg capsule Discontinued 100 mg PO TWICE A DAY as needed for pain 30 March 19, 2024 2:55pm June 19, 2024 4:52pm On Hold: Duplicate Order Take with a meal. ciprofloxacin 500 mg oral tablet (1 source) Quinolone Antimicrobial Start: 08-18-2024 End: 08-23-2024 take 1 tablet by mouth twice daily Ciprofloxacin Hcl 500 mg tablet Discontinued 500 mg PO TWICE A DAY 10 5 0 August 18, 2024 12:00am August 22, 2024 12:00am August 23, 2024 12:07am cyclobenzaprine hydrochloride 5 mg oral tablet (10 sources) Muscle Relaxant Start: 04-03-2020 End: 04-04-2020 take 1 tablet by mouth three times daily as needed Cyclobenzaprine 5 mg tablet Discontinued 5 mg PO THREE TIMES A DAY as needed April 03, 2020 12:00am April 04, 2020 11:19am docusate sodium 100 mg oral capsule (1 source) Start: 06-28-2024 End: 12-06-2024 take 1 capsule by mouth once daily Docusate Sodium 100 mg capsule Discontinued 100 mg PO DAILY June 28, 2024 12:00am December 06, 2024 11:04am furosemide 40 mg oral tablet (10 sources) Loop Diuretic Start: 07-06-2021 End: 07-09-2021 take 1 tablet by mouth once daily Furosemide (Lasix) 40 mg tablet Discontinued 40 mg PO DAILY 3 3 0 July 06, 2021 12:00am July 08, 2021 12:00am July 09, 2021 12:01am hydroCHLOROthiazide 12.5 mg / lisinopril 20 mg oral tablet (20 sources) Thiazide Diuretic, Angiotensin Converting Enzyme Inhibitor Start: 04-03-2020 End: 06-28-2024 Lisinopril-Hydrochl orothiazide 20-12.5 mg tablet Discontinued 1 {tbl} PO DAILY December 29, 2023 12:11pm June 28, 2024 12:37pm Pt lost bottle: please charge fischer tucker Start: 04-03-2020 End: 12-29-2023 take 1 tablet by mouth once daily Lisinopril-Hydrochlorothiazide Discontin ued 1 TABLET PO DAILY December 02, 2022 6:05pm December 29, 2023 12:11pm Comment on above: Take 1 tablet by sebas th once daily. ibuprofen 400 mg oral tablet (1 source) Nonsteroidal Anti-inflammatory Drug Start: End: take 1 tablet by mouth every four hours Ibuprofen (Ibu) 400 mg tablet Discontinued 400 mg PO Q4H June 19, 2024 12:00am June 28, 2024 12:37pm pain iv contrast (will be provided with radiology test) (20 sources) Start: 020 inject 1 dose intravenously once iv contrast (will be provided with radiology test) CT Cardiac - No IV access, insert saline lock prior to the sedation, infusion, injection for imaging exam. Discontinue saline lock post exam. If Pt. has a central line or IVAD, may access for administration according to line specific nursing protocol. Once exam is complete flush line and de-access according to line specific nursing protocol in the CT contrast administration guidelines link. 1 Each 08/16/2020 Active Start: 08-16-2020 inject 1 dose intravenously on ce iv contrast (will be provided with radiology test) CT Cardiac - No IV access, insert saline lock prior to the sedation, infusion, injection for imaging exam. Discontinue saline lock post exam. If Pt. has a central line or IVAD, may access for administration according to line specific nursing protocol. Once exam is complete flush line and de-access according to line specific nursing protocol in the CT contrast administration guidelines link. 1 Each 0 08/16/2020 Active Start: 07-30-2019 inject 1 dose intravenously on ce iv contrast (will be provided with radiology test) CT Cardiac - No IV access, insert saline lock prior to the sedation, infusion, injection for imaging exam. Discontinue saline lock post exam. If Pt. has a central line or IVAD, may access for administration according to line specific nursing protocol. Once exam is complete flush line and de-access according to line specific nursing protocol in the CT contrast administration guidelines link. 1 Each 07/30/2019 Active Start: 07-30-2019 inject 1 dose intravenously on ce iv contrast (will be provided with radiology test) CT Cardiac - No IV access, insert saline lock prior to the sedation, infusion, injection for imaging exam. Discontinue saline lock post exam. If Pt. has a central line or IVAD, may access for administration according to line specific nursing protocol. Once exam is complete flush line and de-access according to line specific nursing protocol in the CT contrast administration guidelines link. 1 Each 0 07/30/2019 Active Comment on above: CT Cardiac - No IV a ccess, insert saline lock prior to the sedation, infusion, injection for imaging exam. Discontinue saline lock post exam. If Pt. has a central line or IVAD, may access for administration according to line specific nursing protocol. Once exam is complete flush line and de-access according to line specific nursing protocol in the CT contrast administration guidelines link. mecobalamin (1 source) Start: End: Mecobalamin (Vitamin B12) 500 mcg tablet,chewable Discontinued ug PO June 28, 2024 12:00am December 06, 2024 11:04am 24 hr metoprolol succinate 25 mg extended release oral tablet (20 sources) beta-Adrenergic Nicole Start: End: take 1 tablet by mouth once daily Metoprolol Succinate (Toprol Xl) 25 mg tablet extended release 24 hr Discontinued 25 mg PO DAILY 90 March 26, 2022 10:55am April 24, 2022 3:38pm Multivitamin tablet (1 source) Start: End: Multivitamin tablet Discontinued 1 {tbl} PO DAILY September 03, 2023 12:00am June 19, 2024 4:52pm Pa-Oao-Gq-Vit T-Vbiqbx-Vdimmsf (Preservision Areds 2 Plus Mv) 200 mcg-15 mcg- 5 mg-1 mg capsule (1 source) Start: End: Kt-Tpo-Tg-Vit M-Fxuvxu-Icrhzyi (Preservision Areds 2 Plus Mv) 200 mcg-15 mcg- 5 mg-1 mg capsule Discontinued NMA PO June 28, 2024 12:00am December 06, 2024 11:04am omeprazole 20 mg delayed release oral capsule (10 sources) Proton Pump Inhibitor Start: End: take 1 capsule by mouth once daily Omeprazole 20 mg capsule,delayed release(DR/EC) Discontinued 20 mg PO DAILY April 03, 2020 12:00am April 04, 2020 11:19am pantoprazole 40 mg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 left lung 02/28/2015 NON-ALLERGIC RHINITIS NOS Obesity Occlusion and stenosis of carotid artery without mention of cerebral infarction Synovitis and tenosynovitis, unspecified Unspecified age-related cataract Unspecified macular degeneration Unspecified urinary incontinence PAST SURGICAL HISTORY Procedure Laterality Date CABG, ARTERIAL, FOUR+ 92 COLONOSCOPY FLX DX W/COLLJ SPEC WHEN PFRMD 12/04/2006 Colonoscopy ENDOVAS AAA REPR W/3-P PART 11/07/2016 ESOPHAGOGASTRODUODENOSC OPY TRANSORAL DIAGNOSTIC 10/14/13 EGD INCISION AND DRAINAGE PILONIDAL CYST COMPLICATED 1974 PAST SURGICAL HISTORY OF 1985 VEIN STRIPPING REM LESIO TRUNK,ARM,LEG 1.1 -2.0CM 11/04/09 Exc. ruptured kathy cyst left upper shoulder REM LESIO TRUNK,ARM,LEG 1.1 -2.0CM 10/12/11 Exc. kathy cyst left lower back RPR UMBILICAL HRNA 5 YRS/> REDUCIBLE 10-16 TONSILLECTOMY PRIMARY/SECONDARY Tonsillectomy FAMILY HISTORY Problem Relation Age of Onset Cancer Mother Diabetes Father Heart Sister Diabetes Sister No Known Problems Sister Social History Tobacco Use Smoking status: Former Current packs/day: 0.00 Average packs/day: 1 pack/day for 44.0 years (44.0 ttl pk-yrs) Types: Cigarettes Start date: 06/20/1963 Quit date: 06/20/2007 Years since quittin.9 Smokeless tobacco: Never Vaping Use Vaping status: Never Used Substance Use Topics Alcohol use: Yes Comment: RARELY Drug use: No ALLERGIES: ALLERGIES Allergen Reactions Carvedilol Unknown Doxycycline Intolerance Diarrhea Penicillins Hives CURRENT OUTPATIENT MEDICATIONS: lisinopril (ZESTRIL) 5 mg tablet Take 1 tablet by mouth every afternoon. isosorbide mononitrate ER (IMDUR) 60 mg 24 hr tablet Take 1 tablet by mouth once daily. tamsulosin (FLOMAX) 0.4 mg Take 0.4 mg by mouth. CALCIUM CARBONATE (TUMS 500 ORAL) Take by mouth as needed. senna-docusate (SENNA-S) 8.6-50 mg per tablet Take 2 tablets by mouth once daily. PRN (Patient not taking: Reported on 05/23/2025) acyclovir (ZOVIRAX) 400 mg tablet Take 400 mg by mouth twice daily. (Patient not taking: Reported on 05/12/2024) pantoprazole DR (PROTONIX) 40 mg tablet Take 40 mg by mouth once daily. (Patient not taking: Reported on 05/12/2024) lisinopril-hydroCHLOROt hiazide (PRINZIDE,ZESTORETIC) 20-12.5 mg per tablet Take 1 tablet by mouth once daily. (Patient not taking: Reported on 11/11/2024) cyanocobalamin, vitamin B-12, (VITAMIN B-12 ORAL) Take 1 tablet by mouth once daily. (Patient not taking: Reported on 11/11/2024) atorvastatin (LIPITOR) 20 mg tablet Take 1 tablet by mouth once daily. (Patient not taking: Reported on 05/23/2025) iv contrast (will be provided with radiology test) CT Cardiac - No IV access, insert saline lock prior to the sedation, infusion, injection for imaging exam. Discontinue saline lock post exam. If Pt. has a central line or IVAD, may access for administration according to line specific nursing protocol. Once exam is complete flush line and de-access according to line specific nursing protocol in the CT contrast administration guidelines link. aspirin, enteric coated (ASPIRIN, ENTERIC COATED) 81 m (more content not included)... Normal [facility] CNPNon 05-06-2025 CNPN Telephone (JOSE) ARIC GONZALEZ ([id number]) 1945 M Date Time Provider Department 05/06/25 INOCENCIO RAINEY During your visit today, we recorded the following information about you: Marisa Vaughan 05/06/2025 3:51 PM Signed Patient called stating he has a nodule on his neck that is very sore. He would like to be seen. Please advise. Ludivina Gordon RN 05/06/2025 3:58 PM Signed ok to schedule CBC/OV with Dr. Alisha Gordon, Terri Dodge 05/06/2025 4:21 PM Signed Spoke w pt and this is scheduled for 05/09. 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 - senna-docusate (SENNA-S) 8.6-50 mg per tablet Take 2 tablets by mouth once daily. PRN - acyclovir (ZOVIRAX) 400 mg tablet Take 400 mg by mouth twice daily. - pantoprazole DR (PROTONIX) 40 mg tablet Take 40 mg by mouth once daily. - isosorbide mononitrate ER (IMDUR) 60 mg 24 hr tablet Take 1 tablet by mouth once daily. - tamsulosin (FLOMAX) 0.4 mg Take 0.4 mg by mouth. - lisinopril-hydroCHLOROt hiazide (PRINZIDE,ZESTORETIC) 20-12.5 mg per tablet Take 1 tablet by mouth once daily. - cyanocobalamin, vitamin B-12, (VITAMIN B-12 ORAL) Take 1 tablet by mouth once daily. - atorvastatin (LIPITOR) 20 mg tablet Take 1 tablet by mouth once daily. - iv contrast (will be provided with radiology test) CT Cardiac - No IV access, insert saline lock prior to the sedation, infusion, injection for imaging exam. Discontinue saline lock post exam. If Pt. has a central line or IVAD, may access for administration according to line specific nursing protocol. Once exam is complete flush line and de-access according to line specific nursing protocol in the CT contrast administration guidelines link. - aspirin, enteric coated (ASPIRIN, ENTERIC COATED) 81 mg EC tablet Take 81 mg by mouth once daily. - clopidogrel (PLAVIX) 75 mg tablet Take 75 mg by mouth once daily. - iv contrast (will be provided with radiology test) CT Cardiac - No IV access, insert saline lock prior to the sedation, infusion, injection for imaging exam. Discontinue saline lock post exam. If Pt. has a central line or IVAD, may access for administration according to line specific nursing protocol. Once exam is complete flush line and de-access according to line specific nursing protocol in the CT contrast administration guidelines link. - iv contrast (will be provided with radiology test) CT Cardiac - No IV access, insert saline lock prior to the sedation, infusion, injection for imaging exam. Discontinue saline lock post exam. If Pt. has a central line or IVAD, may access for administration according to line specific nursing protocol. Once exam is complete flush line and de-access according to line specific nursing protocol in the CT contrast administration guidelines link. - CALCIUM CARBONATE (TUMS 500 ORAL) Take by mouth as needed. Problem List As Of Date 05/06/2025 Noted Resolved Hyperlipidemia LDL goal <100 [E78.5] 07/18/2005 ASHD (arteriosclerotic heart disease) [I25.10] 07/18/2005 BENIGN HYPERTENSION [I10] 07/18/2005 Tobacco use disorder [F17.200] 07/18/2005 02/27/2016 Acute peptic ulcer, unspecified site, without m* 02/16/2015 Recurrent major depressive disorder (HCC) [F33.*06/24/2007 02/24/2017 Other seborrheic keratosis [L82.1] 06/24/2007 02/27/2016 Sebaceous cyst [L72.3] 11/04/2009 02/27/2016 AAA (abdominal aortic aneurysm) without rupture*08/24/2013 Liver lesion [K76.9] 08/24/2013 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] 04/29/2016 Erectile dysfunction [N52.9] 04/29/2016 Umbilical hernia without obstruction or gangren*09/10/2016 02/24/2017 Spondylosis of lumbar region without myelopathy*03/25/2018 Obesity, Class II, BMI 35-39.9 [E66.812] 08/04/2019 DDD (degenerative disc disease), cervical [M50.*03/15/2020 Weakness of right lower extremity [R29.898] 07/20/2020 Leg pain, bilateral [M79.604, M79.605] 08/17/2020 Bilateral carotid artery stenosis [I65.23] 11/12/2021 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 Normal [facility] ALLIED HEALTHon 03-15-2025 ALLIED HEALTH HNO ID: [id number] Author: SIOBHAN SAWYER CT Service: Radiology Author Type: Technologist Type: Allied Health Filed: 03/15/2025 12:01 Note Text: Radiology Service Progress Note PATIENT NAME: Aric Gonzalez DATE OF SERVICE: March 15, 2025 TIME: 12:01 PM PATIENT IDENTITY VERIFICATION COMPLETED USING TWO (2) IDENTIFIERS: Name and Date of confirmed by patient verbally. FALL SCREENING: Has the patient had 2 falls in the last year or 1 fall with injury or currently using an Ambulatory Assistive Device (Walker, Cane, Wheelchair, Crutches, etc.)? No PATIENT GENDER DATA: Assigned male at PATIENT RELEVANT IMPLANT DATA REVIEWED: Not Applicable PATIENT PRESENTS WITH AN IMPLANTABLE OR ATTACHED EQUIPMENT OPERATING ENGINEER: No RADIOLOGY DEPARTMENT: CT; Exam(s) Completed: Chest PERIPHERAL IV DATA: Not applicable SIGNED BY: ÁNGEL Edmond March 15, 2025 12:01 PM [facility] ) ARIC GONZALEZ ([id number]) 1945 M Date Time Provider Department 03/15/25 1:00 PM CAREY RODRIGUEZ [facility] During your visit today, we recorded the following information about you: Pulse Blood pressure 79/minute 123/78 Carey Rodriguez APRN.CNP 03/16/2025 4:53 PM Signed [facility] INCIDENTAL LUNG NODULE PROGRAM (Follow Up) Impression / Recommendations 1. Lung nodules (Primary) Multiple new and increasing in size lung nodules noted. They are small <6 mm. The basilar lung nodules appear inflammatory. Plan to repeat CT in 3 months. Will get PFT and pulmonary consult closer to his home. - CT CHEST WO IVCON; Future 2. Nicotine Dependence, Former: Continue to abstain from smoking cigarettes. 3. Chronic obstructive pulmonary disease, unspecified COPD type (HCC) Plan to get updated PFT and pulmonary consult. Pt is poor historian due to his memory issues. - CONSULT TO PULMONARY MEDICINE - SPIROMETRY WITH DILATOR IF OBSTRUCTED; Future - LUNG VOLUMES; Future - LUNG DIFFUSION CAPACITY (DLCO); Future History of Present Illness Aric Gonzalez is a 79 year old male with a pertinent past medical history significant for History of tobacco abuse: (>30 pack-years, 17 years since quit) who is being seen as a follow up for evaluation of a lung nodule(s). Pt admits to difficulties with his memory. He does not recall why he is here for his visit. He states he has not been here for 3 years. His last OV here was 01/20/2024. the patient is a poor historian. His PCP has discussed going to assisted living. Daughter lives with him, she has seizures and does not drive. He still drives, and does not admit to getting lost, but feels that he should be driving long distances. Lives in [place]. Aric Gonzalez had a CTA abdomen/pelvis on 10/2021 for the indication of AAA. 1 nodule were detected Incidentally. The nodule of greatest concern is a Solid 13 mm nodule with a Smooth border in the Left lower lobe of the lung. Prior imaging: (Yes What type of prior imaging? CT Scan 10/06/2020 Was the nodule of concern seen on prior imaging? Yes Has the nodule of concern remained stable? Increased in Size) This nodule decreased in size on subsequent imaging, but pt had new nodules develop on 10/15/2023 CT Chest, 01/14/2024 CT Chest-4 mm RICARDO. Today's CT Chest shows increase in size of lung nodule in LLL, RLL, RML Respiratory symptoms include: SOB: Yes, sometimes Chest tightness: No Coughing: No Hemoptysis: No Wheezing: No Fever/Chills: No Recent Respiratory Infection: No Unintentional weight loss: No Last 12 Encounter Wt Readings: Date: Wt: 11/11/2024 117 kg (258 lb) 05/12/2024 120.2 kg (265 lb) 04/14/2024 129 kg (284 lb 6.3 oz) 01/20/2024 123.3 kg (271 lb 13.2 oz) 10/15/2023 117.5 kg (259 lb) 04/17/2023 119.1 kg (262 lb 8 oz) 09/13/2022 124.7 kg (275 lb) 05/15/2022 125.2 kg (276 lb 1.6 oz) 04/15/2022 125.4 kg (276 lb 8 oz) 12/01/2021 126.4 kg (278 lb 9.6 oz) 04/09/2021 124.1 kg (273 lb 8 oz) 10/09/2020 124.7 kg (275 lb)] Modified Medical [employer] [place] Dyspnea Scale (MMRC) I stop for breath after walking about 100 yards or after a few minutes on level ground 3 Problem List, History, Medications and allergies have been reviewed from the [facility] electronic medical record and any appropriate up-dates have been made. Physical Exam BP 123/78 (BP Site: Right Arm, BP Position: Sitting, BP Cuff Size: Large Adult) Pulse 79 SpO2 96% General Appearance: Well appearing, alert, in no acute distress, well-hydrated, well nourished.. Neck: Supple, no adenopathy; thyroid symmetric, normal size Lungs: Lungs clear to auscultation. No wheezing, rhonchi, rales.. Heart: RRR without murmur, gallop, or rubs. No ectopy. Neurologic: Oriented X 3. Diagnostic Data I have personally visualized, reviewed and analyzed the findings on pulmonary function testing and radiographs. Increase in size RICARDO nodule Increase in size RLL nodule Increase in size and density RUL nodule New LLL nodules New LLL nodule RLL * * *Final Report* * * DATE OF EXAM: Jan 14 2024 1:27PM [facility] 0541 - CT CHEST WO IVCON / PROCEDURE REASON: multiple diagnoses * * * * Physician Interpretation * * * * EXAMINATION: CHEST CT WITHOUT CONTRAST CLINICAL HISTORY: Lung nodules. Technique: Spiral CT acquisition of the chest from the thoracic inlet to the upper abdomen without contrast. MQ: CTCWO_6 CT Radiation dose: Integrated Dose-length product (DLP) for this visit = 494 mGy*cm CT Dose Reduction Employed: Automated exposure control(AEC) and iterative recon Comparison: CT chest on 10/15/2023 RESULT: Limitations: None. Lines, tubes, and devices: None. (more content not included)... Normal [facility] CT CHEST WO IVCONon 03-15-[address] CHEST WO IVCON * * *Final Report* * * DATE OF EXAM: Mar 15 2025 12:08PM [facility] 0541 - CT CHEST WO IVCON / PROCEDURE REASON: R91.8-Lung nodules * * * * Physician Interpretation * * * * EXAMINATION: CHEST CT WITHOUT CONTRAST CLINICAL HISTORY: Follow-up lung nodules Technique: Spiral CT acquisition of the chest from the thoracic inlet to the upper abdomen without contrast. MQ: CTCWO_6 CT Radiation dose: Integrated Dose-length product (DLP) for this visit = 392 mGy*cm CT Dose Reduction Employed: Iterative recon and mAs-kVp adjusted using patient size-age Comparison: CT chest 01/14/2024 RESULT: Limitations: None. Lines, tubes, and devices: None. Lung parenchyma and airways: Again noted are multiple bilateral pulmonary nodules. Increased size of a nodule in the medial right lower lobe which measures 13 x 8 mm (301:190), previously 8 x 4 mm. New 6 mm nodule posterior right lower lobe (301:211). New 3 mm nodule anterior left upper lobe. New clustered nodules in the posterior left lower lobe measuring up to 8 mm (301:215). Unchanged appearance of reticular opacities with associated architectural distortion and traction bronchiectasis in bilateral lower lobes, the right middle lobe and lingula. Unchanged reticular nodular calcifications in the lung bases. No consolidation. Central airways are patent. Pleural space: No pleural effusion. No pleural thickening. Lower neck, lymph nodes, and mediastinum: The imaged thyroid gland is normal. No lymphadenopathy in the supraclavicular, axillary, mediastinal, or hilar regions. Heart, pericardium, and thoracic vessels: Pulmonary arteries are normal in caliber. Unchanged ectasia of the descending thoracic aorta. The cardiac chambers are normal in size. Coronary artery atherosclerotic calcifications are noted, although the study is not optimized for coronary assessment. No pericardial effusion or thickening. Bones and soft tissues: No destructive bone lesion. Degenerative disease of the thoracic spine. Median sternotomy wires are noted. Chest wall is unremarkable. Upper abdomen: No abnormality in the imaged upper abdomen. Localizer images: No additional findings. IMPRESSION: 1. Increased size of a nodule in the medial right lower lobe. There are a few new scattered subcentimeter nodules. Continued follow-up is advised. 2. There are some new clustered nodules in the posterior left lower lobe which may be infectious/inflammatory 3. Scarring and calcifications in bilateral lower lungs appear unchanged Health Care Aide: [facility] Transcribe Date/Time: Mar 22 2025 2:29P Dictated by : MARY SHI MD This examination was interpreted and the report reviewed and electronically signed by: MARY SHI MD on Mar 22 2025 2:44PM EST [id number] [facility] MR/BMS.[facility] 03-07-2025 /BMS.[facility] 01-27-2025 [facility] Telephone (PULMMN) ARIC GONZALEZ ([id number]) 1945 M Date Time Provider Department 01/27/25 FELICIA QUINN During your visit today, we recorded the following information about you: Felicia Quinn HUC 01/27/2025 4:30 PM Signed Provider: Jennifer Appointment Type: Qzwo-ik-Zjyd (In Person) Location: Patient preference Visit Type: ESTABLISHED Diagnosis: Incidental lung nodule Appointment Time Frame: Next available Testing Needed: TESTS: CT Chest Tyesha Wills 01/31/2025 10:[address] scan expires on 02/18 and we do not have any visits for Carey to do them the same day before then. Please place new order. Allergies As of Date: 01/27/2025 Noted Allergy Reaction CARVEDILOL 05/16/2021 16 - Unknown DOXYCYCLINE 12/11/2016 5 - Intolerance Comments: Diarrhea PENICILLINS 07/18/2005 4 - Hives Date Reviewed: 11/11/2024 Reviewed by: Gabi Rao LPN - Fully Assessed Reason for Visit: Appointment [186] Prescriptions as of 01/31/2025 - lisinopril (ZESTRIL) 5 mg tablet Take 1 tablet by mouth every afternoon. - senna-docusate (SENNA-S) 8.6-50 mg per tablet Take 2 tablets by mouth once daily. PRN - acyclovir (ZOVIRAX) 400 mg tablet Take 400 mg by mouth twice daily. - pantoprazole DR (PROTONIX) 40 mg tablet Take 40 mg by mouth once daily. - isosorbide mononitrate ER (IMDUR) 60 mg 24 hr tablet Take 1 tablet by mouth once daily. - tamsulosin (FLOMAX) 0.4 mg Take 0.4 mg by mouth. - lisinopril-hydroCHLOROt hiazide (PRINZIDE,ZESTORETIC) 20-12.5 mg per tablet Take 1 tablet by mouth once daily. - cyanocobalamin, vitamin B-12, (VITAMIN B-12 ORAL) Take 1 tablet by mouth once daily. - atorvastatin (LIPITOR) 20 mg tablet Take 1 tablet by mouth once daily. - iv contrast (will be provided with radiology test) CT Cardiac - No IV access, insert saline lock prior to the sedation, infusion, injection for imaging exam. Discontinue saline lock post exam. If Pt. has a central line or IVAD, may access for administration according to line specific nursing protocol. Once exam is complete flush line and de-access according to line specific nursing protocol in the CT contrast administration guidelines link. - aspirin, enteric coated (ASPIRIN, ENTERIC COATED) 81 mg EC tablet Take 81 mg by mouth once daily. - clopidogrel (PLAVIX) 75 mg tablet Take 75 mg by mouth once daily. - iv contrast (will be provided with radiology test) CT Cardiac - No IV access, insert saline lock prior to the sedation, infusion, injection for imaging exam. Discontinue saline lock post exam. If Pt. has a central line or IVAD, may access for administration according to line specific nursing protocol. Once exam is complete flush line and de-access according to line specific nursing protocol in the CT contrast administration guidelines link. - iv contrast (will be provided with radiology test) CT Cardiac - No IV access, insert saline lock prior to the sedation, infusion, injection for imaging exam. Discontinue saline lock post exam. If Pt. has a central line or IVAD, may access for administration according to line specific nursing protocol. Once exam is complete flush line and de-access according to line specific nursing protocol in the CT contrast administration guidelines link. - CALCIUM CARBONATE (TUMS 500 ORAL) Take by mouth as needed. Problem List As Of Date 01/27/2025 Noted Resolved Hyperlipidemia LDL goal <100 [E78.5] 07/18/2005 ASHD (arteriosclerotic heart disease) [I25.10] 07/18/2005 BENIGN HYPERTENSION [I10] 07/18/2005 Tobacco use disorder [F17.200] 07/18/2005 02/27/2016 Acute peptic ulcer, unspecified site, without m* 02/16/2015 Recurrent major depressive disorder (HCC) [F33.*06/24/2007 02/24/2017 Other seborrheic keratosis [L82.1] 06/24/2007 02/27/2016 Sebaceous cyst [L72.3] 11/04/2009 02/27/2016 AAA (abdominal aortic aneurysm) without rupture*08/24/2013 Liver lesion [K76.9] 08/24/2013 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] 04/29/2016 Erectile dysfunction [N52.9] 04/29/2016 Umbilical hernia without obstruction or gangren*09/10/2016 02/24/2017 Spondylosis of lumbar region without myelopathy*03/25/2018 Obesity, Class II, BMI 35-39.9 [E66.812] 08/04/2019 DDD (degenerative disc disease), cervical [M50.*03/15/2020 Weakness of right lower extremity [R29.898] 07/20/2020 Leg pain, bilateral [M79.604, M79.605] 08/17/2020 Bilateral carotid artery stenosis [I65.23] 11/12/2021 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] 11/12/2021 Chronic lymphocytic leukemia of B-cell type not*04/16/2022 Thrombocytopenia (HCC) [D69.6] 04/16/2022 Encounter Status:Closed by FELICIA QUINN on 01/27/25 [facility] 01-21-2025 [facility] Telephone ([facility]) BRIANNEARIC ROWLAND ([id number]) 1945 M Date Time Provider Department 01/21/25 CAREY RODRIGUEZ [facility] During your visit today, we recorded the following information about you: Tyesha Wills 01/21/2025 10:41 AM Signed Patient cancelled his CT prior to his appt. Appt is still on for me. It might have been an error to cancel it. Per Tyesha Bunn 01/21/2025 10:41 AM Signed First Attempt - Called patient and left a vm Allergies As of Date: 01/21/2025 Noted Allergy Reaction CARVEDILOL 05/16/2021 16 - Unknown DOXYCYCLINE 12/11/2016 5 - Intolerance Comments: Diarrhea PENICILLINS 07/18/2005 4 - Hives Date Reviewed: 11/11/2024 Reviewed by: Gabi Rao LPN - Fully Assessed Prescriptions as of 01/25/2025 - lisinopril (ZESTRIL) 5 mg tablet Take 1 tablet by mouth every afternoon. - senna-docusate (SENNA-S) 8.6-50 mg per tablet Take 2 tablets by mouth once daily. PRN - acyclovir (ZOVIRAX) 400 mg tablet Take 400 mg by mouth twice daily. - pantoprazole DR (PROTONIX) 40 mg tablet Take 40 mg by mouth once daily. - isosorbide mononitrate ER (IMDUR) 60 mg 24 hr tablet Take 1 tablet by mouth once daily. - tamsulosin (FLOMAX) 0.4 mg Take 0.4 mg by mouth. - lisinopril-hydroCHLOROt hiazide (PRINZIDE,ZESTORETIC) 20-12.5 mg per tablet Take 1 tablet by mouth once daily. - cyanocobalamin, vitamin B-12, (VITAMIN B-12 ORAL) Take 1 tablet by mouth once daily. - atorvastatin (LIPITOR) 20 mg tablet Take 1 tablet by mouth once daily. - iv contrast (will be provided with radiology test) CT Cardiac - No IV access, insert saline lock prior to the sedation, infusion, injection for imaging exam. Discontinue saline lock post exam. If Pt. has a central line or IVAD, may access for administration according to line specific nursing protocol. Once exam is complete flush line and de-access according to line specific nursing protocol in the CT contrast administration guidelines link. - aspirin, enteric coated (ASPIRIN, ENTERIC COATED) 81 mg EC tablet Take 81 mg by mouth once daily. - clopidogrel (PLAVIX) 75 mg tablet Take 75 mg by mouth once daily. - iv contrast (will be provided with radiology test) CT Cardiac - No IV access, insert saline lock prior to the sedation, infusion, injection for imaging exam. Discontinue saline lock post exam. If Pt. has a central line or IVAD, may access for administration according to line specific nursing protocol. Once exam is complete flush line and de-access according to line specific nursing protocol in the CT contrast administration guidelines link. - iv contrast (will be provided with radiology test) CT Cardiac - No IV access, insert saline lock prior to the sedation, infusion, injection for imaging exam. Discontinue saline lock post exam. If Pt. has a central line or IVAD, may access for administration according to line specific nursing protocol. Once exam is complete flush line and de-access according to line specific nursing protocol in the CT contrast administration guidelines link. - CALCIUM CARBONATE (TUMS 500 ORAL) Take by mouth as needed. Problem List As Of Date 01/21/2025 Noted Resolved Hyperlipidemia LDL goal <100 [E78.5] 07/18/2005 ASHD (arteriosclerotic heart disease) [I25.10] 07/18/2005 BENIGN HYPERTENSION [I10] 07/18/2005 Tobacco use disorder [F17.200] 07/18/2005 02/27/2016 Acute peptic ulcer, unspecified site, without m* 02/16/2015 Recurrent major depressive disorder (HCC) [F33.*06/24/2007 02/24/2017 Other seborrheic keratosis [L82.1] 06/24/2007 02/27/2016 Sebaceous cyst [L72.3] 11/04/2009 02/27/2016 AAA (abdominal aortic aneurysm) without rupture*08/24/2013 Liver lesion [K76.9] 08/24/2013 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] 04/29/2016 Erectile dysfunction [N52.9] 04/29/2016 Umbilical hernia without obstruction or gangren*09/10/2016 02/24/2017 Spondylosis of lumbar region without myelopathy*03/25/2018 Obesity, Class II, BMI 35-39.9 [E66.812] 08/04/2019 DDD (degenerative disc disease), cervical [M50.*03/15/2020 Weakness of right lower extremity [R29.898] 07/20/2020 Leg pain, bilateral [M79.604, M79.605] 08/17/2020 Bilateral carotid artery stenosis [I65.23] 11/12/2021 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] 11/12/2021 Chronic lymphocytic leukemia of B-cell type not*04/16/2022 Thrombocytopenia (HCC) [D69.6] 04/16/2022 Encounter Status:Closed by TYESHA WILLS on 01/25/25 Normal [facility] MR/BMS.IMBon 01-19-2025 MR/BMS.IMB Normal [facility] 12 Lead EKGon 01-13-2025 12 Lead EKG Normal [facility] Basic Metabolic Profile (BMP )on 01-13-2025 BUN/CRE 14.0 RATIO Normal 09-12 [facility] Comment on above: Performed By: #### L 500.2500, L100.0100 ####[facility] [address] [place], [address] CA,Total 8.8 mg/dL Normal 8.5-10.1 [facility] Comment on above: Performed By: #### L 500.2500, L100.0100 ####[facility] [address] [place], [address] Chloride [Moles/Vol] 106 mmol/L Normal 98-107 [facility] Comment on above: Performed By: #### L 500.2500, L100.0100 ####[facility] [address] [place], [address] CO2 [Moles/Vol] 27.0 mmol/L Normal 21.0-32.0 [facility] Comment on above: Performed By: #### L 500.2500, L100.0100 ####[facility] [address] [place], [address] Creatinine [Mass/Vol] 1.29 mg/dL Normal 0.70-1.30 [facility] Comment on above: Result Comment: The validity of the calculated GFR GFRAA in patients over70 years has not been determined. Clinical correlation isessential. Performed By: #### L 500.2500, L100.0100 ####[facility] [address] [place], [address] ECRCL 60.45 ml/min Normal [facility] Comment on above: Performed By: #### L 500.2500, L100.0100 ####[facility] [address] [place], [address] EST GFR - AA 69 mL/min Normal >60 [facility] Comment on above: Result Comment: Afri can Ecuadorean GFR Calc Performed By: #### L 500.2500, L100.0100 ####[facility] [address] [place], [address] GAP 4 Low 5-15 [facility] Comment on above: Performed By: #### L 500.2500, L100.0100 ####[facility] [address] [place], [address] GFR/1.73 sq M.predicted among non-blacks MDRD (S/P/Bld) [Vol rate/Area] 57 mL/min/{1.73_m2} Low >60 [facility] Comment on above: Result Comment: Non- GFR Calc Performed By: #### L 500.2500, L100.0100 ####[facility] [address] [place], [address] Glucose [Mass/Vol] 134 mg/dL High 74-106 [facility] Comment on above: Result Comment: Fast ing Glucose result greater than or equal to 126 mg/dLsuggests DIABETES MELLITUS per A.D.A. criteria. Performed By: #### L 500.2500, L100.0100 ####[facility] [address] [place], [address] Potassium [Moles/Vol] 4.2 mmol/L Normal 3.5-5.1 [facility] Comment on above: Performed By: #### L 500.2500, L100.0100 ####[facility] [address] [place], [address] Sodium [Moles/Vol] 137 mmol/L Normal 136-145 [facility] Comment on above: Performed By: #### L 500.2500, L100.0100 ####[facility] [address] [place], [address] Urea nitrogen [Mass/Vol] 18 mg/dL Normal 7-18 [facility] Comment on above: Performed By: #### L 500.2500, L100.0100 ####[facility] [address] [place], [address] CBC W/Diff, Automatedon 12-26 PLT EST SLT DEC Normal ADEQ [facility] Comment on above: Performed By: #### L 500.2500, L100.0100 ####[facility] [address] [place], [address] Chest PA and Lateralon 01-13 Chest PA and Lateral Normal [facility] Emergency Department Summary on 01-13-2025 Emergency Department Summary Normal [facility] M100.678on 01-13-2025 M100.678 SARS-CoV-2 (COVID 19 ) Negative INFLUENZA A Negative INFLUENZA B Negative RSV PCR Negative Normal [facility] Comment on above: Performed By: #### M 100.678 ####[facility] [address] [place], [address] Urinalysis, Completeon 01-13 Mucus Ql (Urine sed) 1+ /hpf Normal [facility] Comment on above: Order Comment: CLEAN CATCH Performed By: #### L 400.0001 ####[facility] [address] [place], [address] RBC 5-10 SEEN Normal 0-5 [facility] Comment on above: Order Comment: CLEAN CATCH Performed By: #### L 400.0001 ####[facility] [address] [place], [address] BACTERIA 0 SEEN Normal None Seen [facility] Comment on above: Order Comment: CLEAN CATCH Performed By: #### L 400.0001 ####[facility] [address] [place], [address] EPI,SQUAMOUS 0 SEEN Normal 0-5 [facility] Comment on above: Order Comment: CLEAN CATCH Performed By: #### L 400.0001 ####[facility] [address] [place], [address] WBC 0 SEEN Normal 0-5 [facility] Comment on above: Order Comment: CLEAN CATCH Performed By: #### L 400.0001 ####[facility] [address] [place], [address] MR/BMS.IMBon 12-06-2024 MR/BMS.IMB Normal [facility] CBC W Auto Differential pane l (Bld)on 11-11-2024 Basophils (Bld) [#/Vol] 0.00 10*3/uL Normal <0.11 [facility] Comment on above: Order Comment: Speci men Type: BLOOD SPECIMENOrdering Facility: [facility] Address: [address] [place] [address] Performed By: #### 5 7021-8 ####[facility]ITALWNCLIA [id number] [address] LABORATORYCLIA [id number] [place] [address] [place] Basophils/100 WBC (Bld) 0.0 % Normal [facility] Comment on above: Order Comment: Speci men Type: BLOOD SPECIMENOrdering Facility: [facility] Address: [address] [place] [address] Performed By: #### 5 7021-8 ####[facility] [id number] [address] LABORATORYCLIA [id number] [place] [address] [place] Differential cell count method Nom (Bld) Manual Normal [facility] Comment on above: Order Comment: Speci men Type: BLOOD SPECIMENOrdering Facility: [facility] Address: [address] [place] [address] Performed By: #### 5 7021-8 ####[facility]ORIALLIA [id number] [address] LABORATORYCLIA [id number] [place] [address] [place] Eosinophils (Bld) [#/Vol] 0.00 10*3/uL Normal <0.46 [facility] Comment on above: Order Comment: Speci men Type: BLOOD SPECIMENOrdering Facility: [facility] Address: [address] [place] [address] Performed By: #### 5 7021-8 ####[facility]ITALWNCLIA [id number] [address] LABORATORYCLIA [id number] [place] [address] [place] Eosinophils/100 WBC (Bld) 0.0 % Normal [facility] Comment on above: Order Comment: Speci men Type: BLOOD SPECIMENOrdering Facility: [facility] Address: [address] [place] [address] Performed By: #### 5 7021-8 ####[facility]ITALWNCLIA [id number] [address] LABORATORYIA [id number] [place] [address] [place] Erythrocyte distribution width (RBC) [Ratio] 13.3 % Normal 11.5-15.0 [facility] Comment on above: Order Comment: Speci men Type: BLOOD SPECIMENOrdering Facility: [facility] Address: [address] [place] [address] Performed By: #### 5 7021-8 ####[facility]OSPITALWAZALIALIA [id number] [address] LABORATORYCLIA [id number] [place] [address] [place] Hematocrit (Bld) [Volume fraction] 41.1 % Normal 39.0-51.0 [facility] Comment on above: Order Comment: Speci men Type: BLOOD SPECIMENOrdering Facility: [facility] Address: [address] [place] [address] Performed By: #### 5 7021-8 ####[facility]ITALWNCLIA [id number] [address] LABORATORYCLIA [id number] [place] [address] [place] Hemoglobin (Bld) [Mass/Vol] 13.6 g/dL Normal 13.0-17.0 [facility] Comment on above: Order Comment: Speci men Type: BLOOD SPECIMENOrdering Facility: [facility] Address: [address] [place] [address] Performed By: #### 5 7021-8 ####[facility] MILLTOWNCLIA [id number] [address] LABORATORYCLIA [id number] [place] [address] [place] Lymphocytes (Bld) [#/Vol] 25.51 10*3/uL High 1.00-4.00 [facility] Comment on above: Order Comment: Speci men Type: BLOOD SPECIMENOrdering Facility: [facility] Address: [address] [place] [address] Performed By: #### 5 7021-8 ####[facility]IALLIA [id number] [address] LABORATORYCLIA [id number] [place] [address] [place] Lymphocytes/100 WBC (Bld) 85.0 % Normal [facility] Comment on above: Order Comment: Speci men Type: BLOOD SPECIMENOrdering Facility: [facility] Address: [address] [place] [address] Performed By: #### 5 7021-8 ####[facility] [id number] [address] LABORATORYCLIA [id number] [place] [address] [place] MCH (RBC) [Entitic mass] 32.4 pg Normal 26.0-34.0 [facility] Comment on above: Order Comment: Speci men Type: BLOOD SPECIMENOrdering Facility: [facility] Address: [address] [place] [address] Performed By: #### 5 7021-8 ####[facility] MILLTOWNCLIA [id number] [address] LABORATORYCLIA [id number] [address] MCHC (RBC) [Mass/Vol] 33.1 g/dL Normal 30.5-36.0 [facility] Comment on above: Order Comment: Speci men Type: BLOOD SPECIMENOrdering Facility: [facility] Address: [address] [place] [address] Performed By: #### 5 7021-8 ####[facility] FOR CHILDRENNCLIA [id number] [address] LABORATORYCLIA [id number] [address] MCV (RBC) [Entitic vol] 97.9 fL Normal 80.0-100.0 [facility] Comment on above: Order Comment: Speci men Type: BLOOD SPECIMENOrdering Facility: [facility] Address: [address] [place] [address] Performed By: #### 5 7021-8 ####[facility]ITALWNCLIA [id number] [address] LABORATORYCLIA [id number] [address] Monocytes (Bld) [#/Vol] 0.00 10*3/uL Normal <0.87 [facility] Comment on above: Order Comment: Speci men Type: BLOOD SPECIMENOrdering Facility: [facility] Address: [address] [place] [address] Performed By: #### 5 7021-8 ####[facility] MILLTOWNCLIA [id number] [address] [facility] LABORATORYCLIA [id number] [place] [address] [place] Monocytes/100 WBC (Bld) 0.0 % Normal [facility] Comment on above: Order Comment: Speci men Type: BLOOD SPECIMENOrdering Facility: [facility] Address: [address] [place] [address] Performed By: #### 5 7021-8 ####[facility] MILLTOWNCLIA [id number] [address] LABORATORYCLIA [id number] [place] [address] [place] Neutrophils (Bld) [#/Vol] 4.50 10*3/uL Normal 1.45-7.50 [facility] Comment on above: Order Comment: Speci men Type: BLOOD SPECIMENOrdering Facility: [facility] Address: [address] [place] [address] Performed By: #### 5 7021-8 ####[facility]ITALTOWNCLIA [id number] [address] LABORATORYCLIA [id number] [place] [address] [place] Neutrophils/100 WBC (Bld) 15.0 % Normal [facility] Comment on above: Order Comment: Speci men Type: BLOOD SPECIMENOrdering Facility: [facility] Address: [address] [place] [address] Performed By: #### 5 7021-8 ####[facility] MILLTOWNCLIA [id number] [address] LABORATORYCLIA [id number] [place] [address] [place] Nucleated RBC (Bld) [#/Vol] 10*3/uL Normal <0.01 [facility] Comment on above: Order Comment: Speci men Type: BLOOD SPECIMENOrdering Facility: [facility] Address: [address] [place] [address] Performed By: #### 5 7021-8 ####[facility]PITALWAZALIALIA [id number] [address] LABORATORYCLIA [id number] [place] [address] [place] Nucleated RBC/100 WBC (Bld) [Ratio] 0.0 /100 WBC Normal [facility] Comment on above: Order Comment: Speci men Type: BLOOD SPECIMENOrdering Facility: [facility] Address: [address] [place] [address] Performed By: #### 5 7021-8 ####[facility] [id number] [address] LABORATORYCLIA [id number] [place] [address] [place] Ovalocytes LM Ql (Bld) Few Normal [facility] Comment on above: Order Comment: Speci men Type: BLOOD SPECIMENOrdering Facility: [facility] Address: [address] [place] [address] Performed By: #### 5 7021-8 ####[facility] [id number] [address] LABORATORYCLIA [id number] [place] [address] [place] Platelet mean volume (Bld) [Entitic vol] 9.3 fL Normal 9.0-12.7 [facility] Comment on above: Order Comment: Speci men Type: BLOOD SPECIMENOrdering Facility: [facility] Address: [address] [place] [address] Performed By: #### 5 7021-8 ####[facility] [id number] [address] LABORATORYCLIA [id number] [place] [address] [place] Platelets (Bld) [#/Vol] 88 10*3/uL Low 150-400 [facility] Comment on above: Order Comment: Speci men Type: BLOOD SPECIMENOrdering Facility: [facility] Address: [address] [place] [address] Result Comment: No c lot detected. Performed By: #### 5 7021-8 ####[facility]ITALWNCLIA [id number] [address] LABORATORYCLIA [id number] [place] [address] [place] Platelets Estimate (Bld) [#/Vol] Decreased Normal [facility] Comment on above: Order Comment: Speci men Type: BLOOD SPECIMENOrdering Facility: [facility] Address: [address] [place] [address] Performed By: #### 5 7021-8 ####[facility]ITALWNCLIA [id number] [address] LABORATORYCLIA [id number] [place] [address] [place] RBC (Bld) [#/Vol] 4.20 10*6/uL Normal 4.20-6.00 [facility] Comment on above: Order Comment: Speci men Type: BLOOD SPECIMENOrdering Facility: [facility] Address: [address] [place] [address] Performed By: #### 5 7021-8 ####[facility]ITALWNCLIA [id number] [address] LABORATORYCLIA [id number] [place] [address] [place] RED CELL MORPH Reviewed: see result s of individual morphologies Normal [facility] Comment on above: Order Comment: Speci men Type: BLOOD SPECIMENOrdering Facility: [facility] Address: [address] [place] [address] Performed By: #### 5 7021-8 ####[facility] SILVESTRE MARTELLNCLIA [id number] [address] LABORATORYCLIA [id number] [place] [address] [facility] WBC (Bld) [#/Vol] 30.01 10*3/uL High 3.70-11.00 [facility] Comment on above: Order Comment: Speci men Type: BLOOD SPECIMENOrdering Facility: [facility] Address: [address] [place] [address] Performed By: #### 5 7021-8 ####[facility] SILVESTRE OTILIODUNDEENCLIA [id number] [address] LABORATORYCLIA [id number] [address] CNOVSPon 11-11-2024 CNOVS Visit (SP) Office (HEMAWS) ARIC GONZALEZ ([id number]) 1945 M Date Time Provider Department 11/11/24 11:40 AM INOCENCIO RAINEY During your visit today, we recorded the following information about you: Temperature Pulse Blood pressure Weight 98.5 degrees 82/minute 155/88 117 kg Gabi Rao LPN 11/11/2024 12:37 PM Signed Est. Pt, discuss recent CBC, 6 month F/U VICTOR M Claudio Drew, MD 11/11/2024 12:37 PM Signed (Elements copied from my note dated May 12, 2024, have been reviewed and updated where appropriate, and all reflect current assessment and medical decision making from today's encounter, November 11, 2024) HISTORY OF PRESENT ILLNESS: Aric Gonzalez is a 78 year old male dx in 2019 with CLL on basis of lymphocytosis, flow cytometry. Diagnosed with dr Smith [facility]. Has been observed only. Here for follow up, review of cbc. CLINICAL IMPRESSION: CLL, overall stable RECOMMENDATION/PLAN: 1. Recheck 8 months. Written and verbal health teaching given to patient, patient verbalizes understanding and agrees with treatment plan. 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 Low back pain Lower extremity aneurysm (HCC) 11/12/2021 Nodule of left lung 02/28/2015 NON-ALLERGIC RHINITIS NOS Obesity Occlusion and stenosis of carotid artery without mention of cerebral infarction Synovitis and tenosynovitis, unspecified Unspecified age-related cataract Unspecified macular degeneration Unspecified urinary incontinence PAST SURGICAL HISTORY Procedure Laterality Date CABG, ARTERIAL, FOUR+ 92 COLONOSCOPY FLX DX W/COLLJ SPEC WHEN PFRMD 12/04/2006 Colonoscopy ENDOVAS AAA REPR W/3-P PART 11/07/2016 ESOPHAGOGASTRODUODENOSC OPY TRANSORAL DIAGNOSTIC 10/14/13 EGD INCISION AND DRAINAGE PILONIDAL CYST COMPLICATED 1974 PAST SURGICAL HISTORY OF 1985 VEIN STRIPPING REM LESIO TRUNK,ARM,LEG 1.1 -2.0CM 11/04/09 Exc. ruptured kathy cyst left upper shoulder REM LESIO TRUNK,ARM,LEG 1.1 -2.0CM 10/12/11 Exc. kathy cyst left lower back RPR UMBILICAL HRNA 5 YRS/> REDUCIBLE 09-19-16 TONSILLECTOMY PRIMARY/SECONDARY Tonsillectomy FAMILY HISTORY Problem Relation Age of Onset Cancer Mother Diabetes Father Heart Sister Diabetes Sister No Known Problems Sister Social History Tobacco Use Smoking status: Former Current packs/day: 0.00 Average packs/day: 1 pack/day for 44.0 years (44.0 ttl pk-yrs) Types: Cigarettes Start date: 06/20/1963 Quit date: 06/20/2007 Years since quittin.4 Smokeless tobacco: Never Vaping Use Vaping status: Never Used Substance Use Topics Alcohol use: Yes Comment: RARELY Drug use: No ALLERGIES: ALLERGIES Allergen Reactions Carvedilol Unknown Doxycycline Intolerance Diarrhea Penicillins Hives CURRENT OUTPATIENT MEDICATIONS: lisinopril (ZESTRIL) 5 mg tablet Take 1 tablet by mouth every afternoon. senna-docusate (SENNA-S) 8.6-50 mg per tablet Take 2 tablets by mouth once daily. PRN isosorbide mononitrate ER (IMDUR) 60 mg 24 hr tablet Take 1 tablet by mouth once daily. tamsulosin (FLOMAX) 0.4 mg Take 0.4 mg by mouth. atorvastatin (LIPITOR) 20 mg tablet Take 1 tablet by mouth once daily. CALCIUM CARBONATE (TUMS 500 ORAL) Take by mouth as needed. acyclovir (ZOVIRAX) 400 mg tablet Take 400 mg by mouth twice daily. (Patient not taking: Reported on 05/12/2024) pantoprazole DR (PROTONIX) 40 mg tablet Take 40 mg by mouth once daily. (Patient not taking: Reported on 05/12/2024) lisinopril-hydroCHLOROt hiazide (PRINZIDE,ZESTORETIC) 20-12.5 mg per tablet Take 1 tablet by mouth once daily. (Patient not taking: Reported on 11/11/2024) cyanocobalamin, vitamin B-12, (VITAMIN B-12 ORAL) Take 1 tablet by mouth once daily. (Patient not taking: Reported on 11/11/2024) iv contrast (will be provided with radiology test) CT Cardiac - No IV access, insert saline lock prior to the sedation, infusion, injection for imaging exam. Discontinue saline lock post exam. If Pt. has a central line or IVAD, may access for administration according to line specific nursing protocol. Once exam is complete flush line and de-access according to line specific nursing protocol in the CT contrast administration guidelines link. aspirin, enteric coated (ASPIRIN, ENTERIC COATED) 81 mg EC tablet Take 81 mg by mouth once daily. (Patient not taking: Reported on 05/12/2024) clopidogrel (PLAVI (more content not included)... Normal [facility] MR/BMS.IMBon 10-04-2024 MR/BMS.IMB Normal [facility] 12 Lead EKGon 09-23-2024 12 Lead EKG Normal [facility] Basic Metabolic Profile (BMP )on 09-23-2024 BUN/CRE 11.7 RATIO Normal 09-12 [facility] Comment on above: Order Comment: 'TROP ' Serial specimen #1, #2 or #3: 1 Performed By: #### L 300.3900, L500.2500, L503.6005, L100.0100, L501.4020 ####[facility] [address] [place], [address] CA,Total 8.9 mg/dL Normal 8.5-10.1 [facility] Comment on above: Order Comment: 'TROP ' Serial specimen #1, #2 or #3: 1 Performed By: #### L 300.3900, L500.2500, L503.6005, L100.0100, L501.4020 ####[facility] [address] [place], [address] Chloride [Moles/Vol] 106 mmol/L Normal 98-107 [facility] Comment on above: Order Comment: 'TROP ' Serial specimen #1, #2 or #3: 1 Performed By: #### L 300.3900, L500.2500, L503.6005, L100.0100, L501.4020 ####[facility] [address] [place], [address] CO2 [Moles/Vol] 27.0 mmol/L Normal 21.0-32.0 [facility] Comment on above: Order Comment: 'TROP ' Serial specimen #1, #2 or #3: 1 Performed By: #### L 300.3900, L500.2500, L503.6005, L100.0100, L501.4020 ####[facility] [address] [place], [address] Creatinine [Mass/Vol] 1.28 mg/dL Normal 0.70-1.30 [facility] Comment on above: Order Comment: 'TROP ' Serial specimen #1, #2 or #3: 1 Result Comment: The validity of the calculated GFR GFRAA in patients over70 years has not been determined. Clinical correlation isessential. Performed By: #### L 300.3900, L500.2500, L503.6005, L100.0100, L501.4020 ####[facility] [address] [place], [address] ECRCL 60.66 ml/min Normal [facility] Comment on above: Order Comment: 'TROP ' Serial specimen #1, #2 or #3: 1 Performed By: #### L 300.3900, L500.2500, L503.6005, L100.0100, L501.4020 ####[facility] [address] [place], [address] EST GFR - AA 69 mL/min Normal >60 [facility] Comment on above: Order Comment: 'TROP ' Serial specimen #1, #2 or #3: 1 Result Comment: Afri can Ecuadorean GFR Calc Performed By: #### L 300.3900, L500.2500, L503.6005, L100.0100, L501.4020 ####[facility] [address] [place], [address] GAP 3 Low 5-15 [facility] Comment on above: Order Comment: 'TROP ' Serial specimen #1, #2 or #3: 1 Performed By: #### L 300.3900, L500.2500, L503.6005, L100.0100, L501.4020 ####[facility] [address] [place], [address] GFR/1.73 sq M.predicted among non-blacks MDRD (S/P/Bld) [Vol rate/Area] 57 mL/min/{1.73_m2} Low >60 [facility] Comment on above: Order Comment: 'TROP ' Serial specimen #1, #2 or #3: 1 Result Comment: Non- GFR Calc Performed By: #### L 300.3900, L500.2500, L503.6005, L100.0100, L501.4020 ####[facility] [address] [place], [address] Glucose [Mass/Vol] 119 mg/dL High 74-106 [facility] Comment on above: Order Comment: 'TROP ' Serial specimen #1, #2 or #3: 1 Result Comment: Fast ing Glucose result from 100 to 125 mg/dLsuggests IMPAIRED HOMEOSTASIS per A.D.A. criteria. Performed By: #### L 300.3900, L500.2500, L503.6005, L100.0100, L501.4020 ####[facility] [address] [place], [address] Potassium [Moles/Vol] 4.0 mmol/L Normal 3.5-5.1 [facility] Comment on above: Order Comment: 'TROP ' Serial specimen #1, #2 or #3: 1 Performed By: #### L 300.3900, L500.2500, L503.6005, L100.0100, L501.4020 ####[facility] [address] [place], [address] Sodium [Moles/Vol] 136 mmol/L Normal 136-145 [facility] Comment on above: Order Comment: 'TROP ' Serial specimen #1, #2 or #3: 1 Performed By: #### L 300.3900, L500.2500, L503.6005, L100.0100, L501.4020 ####[facility] [address] [place], [address] Urea nitrogen [Mass/Vol] 15 mg/dL Normal 7-18 [facility] Comment on above: Order Comment: 'TROP ' Serial specimen #1, #2 or #3: 1 Performed By: #### L 300.3900, L500.2500, L503.6005, L100.0100, L501.4020 ####[facility] [address] [place], [address] Brain/Head without Contrasto n 09-23-2024 Brain/Head without Contrast Normal [facility] CBC W/Diff, Automatedon - ATYPICAL LYMPH 1+ Normal [facility] Comment on above: Performed By: #### L 300.3900, L500.2500, L503.6005, L100.0100, L501.4020 ####[facility] [address] [place], [address] REACTIVE LYMPH 2+ Normal [facility] Comment on above: Performed By: #### L 300.3900, L500.2500, L503.6005, L100.0100, L501.4020 ####[facility] [address] [place], [address] SMEAR COMMENT SCANNED Normal [facility] Comment on above: Performed By: #### L 300.3900, L500.2500, L503.6005, L100.0100, L501.4020 ####[facility] [address] [place], [address] Chest PA and Lateralon 09-23 Chest PA and Lateral Normal [facility] Emergency Department Summary on 09-23-2024 Emergency Department Summary Normal [facility] L501.4020on 09-23-2024 TROPONIN-I HS 8 pg/mL Normal 3.0-78.0 [facility] Comment on above: Order Comment: 'TROP ' Serial specimen #1, #2 or #3: 1 Result Comment: Plea se Note: New Test Units and Gender Specific Reference Ranges. For more information see Policy Stat Procedure Cassatt High Sensitivity Troponin (TNIH) and attachments. Performed By: #### L 300.3900, L500.2500, L503.6005, L100.0100, L501.4020 ####[facility] [address] [place], [address] Lactic Acidon 09-23-2024 Lactate [Moles/Vol] 1.0 mmol/L Normal 0.4-1.9 [facility] Comment on above: Order Comment: Y Performed By: #### L 300.3900, L500.2500, L503.6005, L100.0100, L501.4020 ####[facility] [address] [place], [address] M100.678on 09-23-2024 M100.678 Pending SARS-CoV-2 (COVID 19) Negative INFLUENZA A Negative INFLUENZA B Negative RSV PCR Negative Normal [facility] Comment on above: Performed By: #### M 100.678 ####[facility] [address] [place], [address] Partial Thromboplast Timeon 09-23-2024 aPTT Coag (Bld) [Time] 29.8 s Normal 24.1-36.2 [facility] Comment on above: Performed By: #### L 300.3900, L300.4310 ####[facility] [address] [place], [address] Prothrombin Time w/INRon INR Coag (PPP) [Relative time] 1.2 {INR} Normal [facility] Comment on above: Performed By: #### L 300.3900, L300.4310 ####[facility] [address] [place], [address] PT Coag (PPP) [Time] 15.3 s High 11.7-14.9 [facility] Comment on above: Performed By: #### L 300.3900, L300.4310 ####[facility] [address] [place], [address] INR Normal [facility] Comment on above: Result Comment: This specimen has been REJECTED due to Laboratory criteria:Quanity Not Sufficient.CAROLINA WILKERSON has been notified of need of recollection.09/23/241822 Sheridan H Lore Performed By: #### L 300.3900, L500.2500, L503.6005, L100.0100, L501.4020 ####[facility] [address] [place], [address] PROTIME Normal 11.7-14.9 [facility] Comment on above: Result Comment: This specimen has been REJECTED due to Laboratory criteria:Quanity Not Sufficient.CAROLINA WILKERSON has been notified of need of recollection.09/23/241822 Sheridan H Lore Performed By: #### L 300.3900, L500.2500, L503.6005, L100.0100, L501.4020 ####[facility] [address] [place], [address] Urine Cultureon 08-17-2024 URC Culture exhibits no growth. Normal [facility] Comment on above: Performed By: #### M 100.2200 ####[facility] [address] [place], [address] Urgent Care Visit Reporton 0 08-15-2024 Urgent Care Visit Report Normal [facility] Inital Evaluation (1) - PTon 08-06-2024 Inital Evaluation (1) - PT Normal [facility] MR/BMS.IMBon 07-05-2024 MR/BMS.IMB Normal [facility] CBC W/Diff, Automatedon 08-0 PATH REV Reviewed Normal [facility] Comment on above: Order Comment: DID N OT RECIEVE BLOOD IN LAB UNTIL 1358-SWRIGHTCRITICAL VALUE VERIFIED. CALLED TO YE CHICAS06/26/24 1407 Sal Sarmiento.RESULTS READ BACK BY SAME. Result Comment: Abso lute lymphocytosis suggestive of low grade lympho-proliferative disorder.Clinical correlation is necessary.MACROCYTOSISMILD Thrombocytopenia.Loi Adame, M.D. 06/28/24 AMENDED REPORT 06/28/24 1345 PATH REV previously reported as: March johnnie Performed By: #### L 500.2500, L501.4020, L100.0100 ####[facility] [address] [place], [address] PATH REV Reviewed Normal [facility] Comment on above: Order Comment: CRITI CHANCE VALUE VERIFIED. CALLED TO TYESHA MARIN06/27/24 0749 Sal Sarmiento.RESULTS READ BACK BY SAME. Result Comment: Abso lute lymphocytosis suggestive of low grade lympho-proliferative disorder.Clinical correlation is necessary.Macrocytic anemia.MILD Thrombocytopenia.Loi Adame M.D. 06/28/24 AMENDED REPORT 06/28/24 1332 PATH REV previously reported as: March johnnie Performed By: #### L 503.0105, L501.5200, L100.0100, L500.4050 ####[facility] [address] [place], [address] Discharge Instructionon Discharge Instruction Normal [facility] Vitamin B12on 06-28-2024 Cobalamin (Vitamin B12) [Mass/Vol] 511 pg/mL Normal 211-911 [facility] Comment on above: Performed By: #### L 503.0105, L501.5200, L100.0100, L500.4050 ####[facility] [address] [place], [address] Basic Metabolic Profile (BMP )on 06-27-2024 BUN Normal 7-18 [facility] Comment on above: Result Comment: Canc elled via OM: Order cancelled - Patient discharged Performed By: #### L 100.0100, L500.2500 ####[facility] [address] [place], [address] BUN/CRE Normal 10-20 [facility] Comment on above: Result Comment: Canc elled via OM: Order cancelled - Patient discharged Performed By: #### L 100.0100, L500.2500 ####[facility] [address] [place], [address] CA,Total Normal 8.5-10.1 [facility] Comment on above: Result Comment: Canc elled via OM: Order cancelled - Patient discharged Performed By: #### L 100.0100, L500.2500 ####[facility] [address] [facility] [address] CL Normal 98-107 [facility] Comment on above: Result Comment: Canc elled via OM: Order cancelled - Patient discharged Performed By: #### L 100.0100, L500.2500 ####[facility] [address] [place], [address] CO2 Normal 21.0-32.0 [facility] Comment on above: Result Comment: Canc elled via OM: Order cancelled - Patient discharged Performed By: #### L 100.0100, L500.2500 ####[facility] [address] [place], [address] CREAT,SERUM Normal 0.70-1.30 [facility] Comment on above: Result Comment: Canc elled via OM: Order cancelled - Patient discharged Performed By: #### L 100.0100, L500.2500 ####[facility] [address] [place], [address] EST GFR Normal >60 [facility] Comment on above: Result Comment: Canc elled via OM: Order cancelled - Patient discharged Performed By: #### L 100.0100, L500.2500 ####[facility] [address] [place], [address] EST GFR - AA Normal >60 [facility] Comment on above: Result Comment: Canc elled via OM: Order cancelled - Patient discharged Performed By: #### L 100.0100, L500.2500 ####[facility] [address] [place], [address] GAP Normal 5-15 [facility] Comment on above: Result Comment: Canc elled via OM: Order cancelled - Patient discharged Performed By: #### L 100.0100, L500.2500 ####[facility] [address] [place], [address] GLU Normal 74-106 [facility] Comment on above: Result Comment: Canc elled via OM: Order cancelled - Patient discharged Performed By: #### L 100.0100, L500.2500 ####[facility] [address] [place], [address] Potassium Normal 3.5-5.1 [facility] Comment on above: Result Comment: Canc elled via OM: Order cancelled - Patient discharged Performed By: #### L 100.0100, L500.2500 ####[facility] [address] [place], [address] Basic Metabolic Profile (BMP) Normal 136-145 [facility] Comment on above: Result Comment: Canc elled via OM: Order cancelled - Patient discharged Performed By: #### L 100.0100, L500.2500 ####[facility] [address] [place], [address] CBC W/Diff, Automatedon 08-0 Absolute Neut Normal 2.0-7.7 [facility] Comment on above: Result Comment: Canc elled via OM: Order cancelled - Patient discharged Performed By: #### L 100.0100, L500.2500 ####[facility] [address] [place], [address] HCT Normal 40-54 [facility] Comment on above: Result Comment: Canc elled via OM: Order cancelled - Patient discharged Performed By: #### L 100.0100, L500.2500 ####[facility] [address] [place], [address] HGB Normal 13.0-16.5 [facility] Comment on above: Result Comment: Canc elled via OM: Order cancelled - Patient discharged Performed By: #### L 100.0100, L500.2500 ####[facility] [address] [place], [address] MCH Normal 27.0-32.0 [facility] Comment on above: Result Comment: Canc elled via OM: Order cancelled - Patient discharged Performed By: #### L 100.0100, L500.2500 ####[facility] [address] [place], [address] MCHC Normal 32-36 [facility] Comment on above: Result Comment: Canc elled via OM: Order cancelled - Patient discharged Performed By: #### L 100.0100, L500.2500 ####[facility] [address] [place], [address] MCV Normal 80-94 [facility] Comment on above: Result Comment: Canc elled via OM: Order cancelled - Patient discharged Performed By: #### L 100.0100, L500.2500 ####[facility] [address] [place], [address] NEUT% Normal 47-70 [facility] Comment on above: Result Comment: Canc elled via OM: Order cancelled - Patient discharged Performed By: #### L 100.0100, L500.2500 ####[facility] [address] [place], [address] PLT Normal 150-450 [facility] Comment on above: Result Comment: Canc elled via OM: Order cancelled - Patient discharged Performed By: #### L 100.0100, L500.2500 ####[facility] [address] [place], [address] RBC Normal 4.6-6.2 [facility] Comment on above: Result Comment: Canc elled via OM: Order cancelled - Patient discharged Performed By: #### L 100.0100, L500.2500 ####[facility] [address] [place], [address] RDW CV Normal 11.6-14.6 [facility] Comment on above: Result Comment: Canc elled via OM: Order cancelled - Patient discharged Performed By: #### L 100.0100, L500.2500 ####[facility] [address] [place], [address] RDW SD Normal 35.1-43.9 [facility] Comment on above: Result Comment: Canc elled via OM: Order cancelled - Patient discharged Performed By: #### L 100.0100, L500.2500 ####[facility] [address] [place], [address] WBC Normal 4.4-11.0 [facility] Comment on above: Result Comment: Canc elled via OM: Order cancelled - Patient discharged Performed By: #### L 100.0100, L500.2500 ####[facility] [address] [place], [address] Comprehensive Metabolic Prof deon 06-27-2024 Albumin [Mass/Vol] 3.1 g/dL Low 3.2-5.0 [facility] Comment on above: Performed By: #### L 503.0105, L501.5200, L100.0100, L500.4050 ####[facility] [address] [place], [address] Albumin/Globulin [Mass ratio] 1.2 {ratio} Normal 0.9-2.4 [facility] Comment on above: Performed By: #### L 503.0105, L501.5200, L100.0100, L500.4050 ####[facility] [address] [place], [address] ALK P 66 U/L Normal 45-117 [facility] Comment on above: Performed By: #### L 503.0105, L501.5200, L100.0100, L500.4050 ####[facility] [address] [place], [address] ALT [Catalytic activity/Vol] 27 U/L Normal 16-61 [facility] Comment on above: Performed By: #### L 503.0105, L501.5200, L100.0100, L500.4050 ####[facility] [address] [place], [address] AST [Catalytic activity/Vol] 25 U/L Normal 15-37 [facility] Comment on above: Performed By: #### L 503.0105, L501.5200, L100.0100, L500.4050 ####[facility] [address] [place], [address] Bilirubin [Mass/Vol] 1.10 mg/dL High 0.20-1.00 [facility] Comment on above: Result Comment: For patients on eltrombopag therapy, use of Dimension Cassatt TBIL is not recommended. Performed By: #### L 503.0105, L501.5200, L100.0100, L500.4050 ####[facility] [address] [place], [address] BUN/CRE 20.8 RATIO High 10-20 [facility] Comment on above: Performed By: #### L 503.0105, L501.5200, L100.0100, L500.4050 ####[facility] [address] [place], [address] CA,Total 7.9 mg/dL Low 8.5-10.1 [facility] Comment on above: Performed By: #### L 503.0105, L501.5200, L100.0100, L500.4050 ####[facility] [address] [place], [address] Chloride [Moles/Vol] 109 mmol/L High 98-107 [facility] Comment on above: Performed By: #### L 503.0105, L501.5200, L100.0100, L500.4050 ####[facility] [address] [place], [address] CO2 [Moles/Vol] 26.0 mmol/L Normal 21.0-32.0 [facility] Comment on above: Performed By: #### L 503.0105, L501.5200, L100.0100, L500.4050 ####[facility] [address] [place], [address] Creatinine [Mass/Vol] 1.25 mg/dL Normal 0.70-1.30 [facility] Comment on above: Result Comment: The validity of the calculated GFR GFRAA in patients over70 years has not been determined. Clinical correlation isessential. Performed By: #### L 503.0105, L501.5200, L100.0100, L500.4050 ####[facility] [address] [place], [address] ECRCL 60.68 ml/min Normal [facility] Comment on above: Performed By: #### L 503.0105, L501.5200, L100.0100, L500.4050 ####[facility] [address] [place], [address] EST GFR - AA 71 mL/min Normal >60 [facility] Comment on above: Result Comment: Afri can Ecuadorean GFR Calc Performed By: #### L 503.0105, L501.5200, L100.0100, L500.4050 ####[facility] [address] [place], [address] GAP 5 Normal 5-15 [facility] Comment on above: Performed By: #### L 503.0105, L501.5200, L100.0100, L500.4050 ####[facility] [address] [place], [address] GFR/1.73 sq M.predicted among non-blacks MDRD (S/P/Bld) [Vol rate/Area] 59 mL/min/{1.73_m2} Low >60 [facility] Comment on above: Result Comment: Non- GFR Calc Performed By: #### L 503.0105, L501.5200, L100.0100, L500.4050 ####[facility] [address] [place], [address] Globulin (S) [Mass/Vol] 2.5 g/dL Normal 2.2-4.2 [facility] Comment on above: Performed By: #### L 503.0105, L501.5200, L100.0100, L500.4050 ####[facility] [address] [place], [address] Glucose [Mass/Vol] 104 mg/dL Normal 74-106 [facility] Comment on above: Result Comment: Fast ing Glucose result from 100 to 125 mg/dLsuggests IMPAIRED HOMEOSTASIS per A.D.A. criteria. Performed By: #### L 503.0105, L501.5200, L100.0100, L500.4050 ####[facility] [address] [place], [address] Potassium [Moles/Vol] 3.6 mmol/L Normal 3.5-5.1 [facility] Comment on above: Performed By: #### L 503.0105, L501.5200, L100.0100, L500.4050 ####[facility] [address] [place], [address] Sodium [Moles/Vol] 140 mmol/L Normal 136-145 [facility] Comment on above: Performed By: #### L 503.0105, L501.5200, L100.0100, L500.4050 ####[facility] [address] [place], [address] T PROT 5.6 g/dL Low 6.4-8.2 [facility] Comment on above: Performed By: #### L 503.0105, L501.5200, L100.0100, L500.4050 ####[facility] [address] [place], [address] Urea nitrogen [Mass/Vol] 26 mg/dL High 7-18 [facility] Comment on above: Performed By: #### L 503.0105, L501.5200, L100.0100, L500.4050 ####[facility] [address] [place], [address] Magnesiumon 06-27-2024 Magnesium [Mass/Vol] 1.8 mg/dL Normal 1.6-2.6 [facility] Comment on above: Performed By: #### L 503.0105, L501.5200, L100.0100, L500.4050 ####[facility] [address] [place], [address] 12 Lead EKGon 06-26-2024 12 Lead EKG Normal [facility] Basic Metabolic Profile (BMP )on 06-26-2024 BUN/CRE 18.8 RATIO Normal 10-20 [facility] Comment on above: Order Comment: 'TROP ' Serial specimen #1, #2 or #3: 1DID NOT RECIEVE BLOOD IN LAB UNTIL 1358-RIGHT Performed By: #### L 500.2500, L501.4020, L100.0100 ####[facility] [address] [place], [address] CA,Total 8.7 mg/dL Normal 8.5-10.1 [facility] Comment on above: Order Comment: 'TROP ' Serial specimen #1, #2 or #3: 1DID NOT RECIEVE BLOOD IN LAB UNTIL 1358-SWRIGHT Performed By: #### L 500.2500, L501.4020, L100.0100 ####[facility] [address] [place], [address] Chloride [Moles/Vol] 105 mmol/L Normal 98-107 [facility] Comment on above: Order Comment: 'TROP ' Serial specimen #1, #2 or #3: 1DID NOT RECIEVE BLOOD IN LAB UNTIL 1358-SWRIGHT Performed By: #### L 500.2500, L501.4020, L100.0100 ####[facility] [address] [place], [address] CO2 [Moles/Vol] 26.0 mmol/L Normal 21.0-32.0 [facility] Comment on above: Order Comment: 'TROP ' Serial specimen #1, #2 or #3: 1DID NOT RECIEVE BLOOD IN LAB UNTIL 1358-SWRIGHT Performed By: #### L 500.2500, L501.4020, L100.0100 ####[facility] [address] [place], [address] Creatinine [Mass/Vol] 1.76 mg/dL High 0.70-1.30 [facility] Comment on above: Order Comment: 'TROP ' Serial specimen #1, #2 or #3: 1DID NOT RECIEVE BLOOD IN LAB UNTIL 1358-SWRIGHT Result Comment: The validity of the calculated GFR GFRAA in patients over70 years has not been determined. Clinical correlation isessential. Performed By: #### L 500.2500, L501.4020, L100.0100 ####[facility] [address] [place], [address] ECRCL 43.47 ml/min Normal [facility] Comment on above: Order Comment: 'TROP ' Serial specimen #1, #2 or #3: 1DID NOT RECIEVE BLOOD IN LAB UNTIL 1358-SWRIGHT Performed By: #### L 500.2500, L501.4020, L100.0100 ####[facility] [address] [place], [address] EST GFR - AA 48 mL/min Low >60 [facility] Comment on above: Order Comment: 'TROP ' Serial specimen #1, #2 or #3: 1DID NOT RECIEVE BLOOD IN LAB UNTIL 1358-SWRIGHT Result Comment: Afri can Ecuadorean GFR Calc Performed By: #### L 500.2500, L501.4020, L100.0100 ####[facility] [address] [place], [address] GAP 7 Normal 5-15 [facility] Comment on above: Order Comment: 'TROP ' Serial specimen #1, #2 or #3: 1DID NOT RECIEVE BLOOD IN LAB UNTIL 1358-SWRIGHT Performed By: #### L 500.2500, L501.4020, L100.0100 ####[facility] [address] [place], [address] GFR/1.73 sq M.predicted among non-blacks MDRD (S/P/Bld) [Vol rate/Area] 40 mL/min/{1.73_m2} Low >60 [facility] Comment on above: Order Comment: 'TROP ' Serial specimen #1, #2 or #3: 1DID NOT RECIEVE BLOOD IN LAB UNTIL 1358-SWRIGHT Result Comment: Non- GFR Calc Performed By: #### L 500.2500, L501.4020, L100.0100 ####[facility] [address] [place], [address] Glucose [Mass/Vol] 133 mg/dL High 74-106 [facility] Comment on above: Order Comment: 'TROP ' Serial specimen #1, #2 or #3: 1DID NOT RECIEVE BLOOD IN LAB UNTIL 1358-SWRIGHT Result Comment: Fast ing Glucose result greater than or equal to 126 mg/dLsuggests DIABETES MELLITUS per A.D.A. criteria. Performed By: #### L 500.2500, L501.4020, L100.0100 ####[facility] [address] [place], [address] Potassium [Moles/Vol] 3.7 mmol/L Normal 3.5-5.1 [facility] Comment on above: Order Comment: 'TROP ' Serial specimen #1, #2 or #3: 1DID NOT RECIEVE BLOOD IN LAB UNTIL 1358-SWRIGHT Performed By: #### L 500.2500, L501.4020, L100.0100 ####[facility] [address] [place], [address] Sodium [Moles/Vol] 138 mmol/L Normal 136-145 [facility] Comment on above: Order Comment: 'TROP ' Serial specimen #1, #2 or #3: 1DID NOT RECIEVE BLOOD IN LAB UNTIL 1358-SWRIGHT Performed By: #### L 500.2500, L501.4020, L100.0100 ####[facility] [address] [place], [address] Urea nitrogen [Mass/Vol] 33 mg/dL High 7-18 [facility] Comment on above: Order Comment: 'TROP ' Serial specimen #1, #2 or #3: 1DID NOT RECIEVE BLOOD IN LAB UNTIL 1358-SWRIGHT Performed By: #### L 500.2500, L501.4020, L100.0100 ####[facility] [address] [place], [address] BUN Normal 7-18 [facility] Comment on above: Result Comment: Canc elled via OM: Order cancelled - Patient discharged Performed By: #### L 500.2500, L100.0100 ####[facility] [address] [place], [address] BUN/CRE Normal 10-20 [facility] Comment on above: Result Comment: Canc elled via OM: Order cancelled - Patient discharged Performed By: #### L 500.2500, L100.0100 ####[facility] [address], [address] CA,Total Normal 8.5-10.1 [facility] Comment on above: Result Comment: Canc elled via OM: Order cancelled - Patient discharged Performed By: #### L 500.2500, L100.0100 ####[facility] [address] [place], [address] CL Normal 98-107 [facility] Comment on above: Result Comment: Canc elled via OM: Order cancelled - Patient discharged Performed By: #### L 500.2500, L100.0100 ####[facility] [address] [place], [address] CO2 Normal 21.0-32.0 [facility] Comment on above: Result Comment: Canc elled via OM: Order cancelled - Patient discharged Performed By: #### L 500.2500, L100.0100 ####[facility] [address] [place], [address] CREAT,SERUM Normal 0.70-1.30 [facility] Comment on above: Result Comment: Canc elled via OM: Order cancelled - Patient discharged Performed By: #### L 500.2500, L100.0100 ####[facility] [address] [place], [address] EST GFR Normal >60 [facility] Comment on above: Result Comment: Canc elled via OM: Order cancelled - Patient discharged Performed By: #### L 500.2500, L100.0100 ####[facility] [address] [place], [address] EST GFR - AA Normal >60 [facility] Comment on above: Result Comment: Canc elled via OM: Order cancelled - Patient discharged Performed By: #### L 500.2500, L100.0100 ####[facility] [address] [place], [address] GAP Normal 5-15 [facility] Comment on above: Result Comment: Canc elled via OM: Order cancelled - Patient discharged Performed By: #### L 500.2500, L100.0100 ####[facility] [address] [place], [address] GLU Normal 74-106 [facility] Comment on above: Result Comment: Canc elled via OM: Order cancelled - Patient discharged Performed By: #### L 500.2500, L100.0100 ####[facility] [address] [place], [address] Potassium Normal 3.5-5.1 [facility] Comment on above: Result Comment: Canc elled via OM: Order cancelled - Patient discharged Performed By: #### L 500.2500, L100.0100 ####[facility] [address] [place], [address] Basic Metabolic Profile (BMP) Normal 136-145 [facility] Comment on above: Result Comment: Canc elled via OM: Order cancelled - Patient discharged Performed By: #### L 500.2500, L100.0100 ####[facility] [address] [place], [address] CBC W/Diff, Automatedon 08-0 Absolute Neut Normal 2.0-7.7 [facility] Comment on above: Result Comment: Canc elled via OM: Order cancelled - Patient discharged Performed By: #### L 500.2500, L100.0100 ####[facility] [address] [place], [address] HCT Normal 40-54 [facility] Comment on above: Result Comment: Canc elled via OM: Order cancelled - Patient discharged Performed By: #### L 500.2500, L100.0100 ####[facility] [address] [place], [address] HGB Normal 13.0-16.5 [facility] Comment on above: Result Comment: Canc elled via OM: Order cancelled - Patient discharged Performed By: #### L 500.2500, L100.0100 ####[facility] [address] [place], [address] MCH Normal 27.0-32.0 [facility] Comment on above: Result Comment: Canc elled via OM: Order cancelled - Patient discharged Performed By: #### L 500.2500, L100.0100 ####[facility] [address] [place], [address] MCHC Normal 32-36 [facility] Comment on above: Result Comment: Canc elled via OM: Order cancelled - Patient discharged Performed By: #### L 500.2500, L100.0100 ####[facility] [address] [place], [address] MCV Normal 80-94 [facility] Comment on above: Result Comment: Canc elled via OM: Order cancelled - Patient discharged Performed By: #### L 500.2500, L100.0100 ####[facility] [address] [place], [address] NEUT% Normal 47-70 [facility] Comment on above: Result Comment: Canc elled via OM: Order cancelled - Patient discharged Performed By: #### L 500.2500, L100.0100 ####[facility] [address] [place], [address] PLT Normal 150-450 [facility] Comment on above: Result Comment: Canc elled via OM: Order cancelled - Patient discharged Performed By: #### L 500.2500, L100.0100 ####[facility] [address] [place], [address] RBC Normal 4.6-6.2 [facility] Comment on above: Result Comment: Canc elled via OM: Order cancelled - Patient discharged Performed By: #### L 500.2500, L100.0100 ####[facility] [address] [place], [address] RDW CV Normal 11.6-14.6 [facility] Comment on above: Result Comment: Canc elled via OM: Order cancelled - Patient discharged Performed By: #### L 500.2500, L100.0100 ####[facility] [address] [place], [address] RDW SD Normal 35.1-43.9 [facility] Comment on above: Result Comment: Canc elled via OM: Order cancelled - Patient discharged Performed By: #### L 500.2500, L100.0100 ####[facility] [address] [place], [address] WBC Normal 4.4-11.0 [facility] Comment on above: Result Comment: Canc elled via OM: Order cancelled - Patient discharged Performed By: #### L 500.2500, L100.0100 ####[facility] [address] [place], [address] Chest 1 View (Portable)on Chest 1 View (Portable) Normal [facility] Emergency Department Summary on 06-26-2024 Emergency Department Summary Normal [facility] H AND P Exam - Hospitaliston 06-26-2024 H&P Exam - Hospitalist Normal [facility] L501.4020on 06-26-2024 TROPONIN-I HS 64 pg/mL Normal 3.0-78.0 [facility] Comment on above: Order Comment: 'TROP ' Serial specimen #1, #2 or #3: 1DID NOT RECIEVE BLOOD IN LAB UNTIL 1358-SWRIGHT Result Comment: Dez cedeno Note: New Test Units and Gender Specific Reference Ranges. For more information see Policy Stat Procedure [place] High Sensitivity Troponin (TNIH) and attachments. Performed By: #### L 500.2500, L501.4020, L100.0100 ####[facility] [address] [place], [address] Urinalysis, Completeon 06-26 RBC 0-5 SEEN Normal 0-5 [facility] Comment on above: Order Comment: CLEAN CATCH Performed By: #### L 400.0001 ####[facility] [address] [place], [address] WBC 0-5 SEEN Normal 0-5 [facility] Comment on above: Order Comment: CLEAN CATCH Performed By: #### L 400.0001 ####[facility] [address] [place], [address] BACTERIA 0 SEEN Normal None Seen [facility] Comment on above: Order Comment: CLEAN CATCH Performed By: #### L 400.0001 ####[facility] [address] [place], [address] EPI,SQUAMOUS 0 SEEN Normal 0-5 [facility] Comment on above: Order Comment: CLEAN CATCH Performed By: #### L 400.0001 ####[facility] [address] [place], [address] Mucus Ql (Urine sed) 0 SEEN Normal [facility] Comment on above: Order Comment: CLEAN CATCH Performed By: #### L 400.0001 ####[facility] [address] [place], [address] Basic Metabolic Profile (BMP )on 06-25-2024 BUN Normal 7-18 [facility] Comment on above: Result Comment: Canc elled via OM: Order cancelled - Patient discharged Performed By: #### L 500.2500, L100.0100 ####[facility] [address] [place], [address] BUN/CRE Normal 10-20 [facility] Comment on above: Result Comment: Canc elled via OM: Order cancelled - Patient discharged Performed By: #### L 500.2500, L100.0100 ####[facility] [address] [place], [address] CA,Total Normal 8.5-10.1 [facility] Comment on above: Result Comment: Canc elled via OM: Order cancelled - Patient discharged Performed By: #### L 500.2500, L100.0100 ####[facility] [address] [place], [address] CL Normal 98-107 [facility] Comment on above: Result Comment: Canc elled via OM: Order cancelled - Patient discharged Performed By: #### L 500.2500, L100.0100 ####[facility] [address] [place], [address] CO2 Normal 21.0-32.0 [facility] Comment on above: Result Comment: Canc elled via OM: Order cancelled - Patient discharged Performed By: #### L 500.2500, L100.0100 ####[facility] [address], [address] CREAT,SERUM Normal 0.70-1.30 [facility] Comment on above: Result Comment: Canc elled via OM: Order cancelled - Patient discharged Performed By: #### L 500.2500, L100.0100 ####[facility] [address] [place], [address] EST GFR Normal >60 [facility] Comment on above: Result Comment: Canc elled via OM: Order cancelled - Patient discharged Performed By: #### L 500.2500, L100.0100 ####[facility] [address] [place], [address] EST GFR - AA Normal >60 [facility] Comment on above: Result Comment: Canc elled via OM: Order cancelled - Patient discharged Performed By: #### L 500.2500, L100.0100 ####[facility] [address] [place], [address] GAP Normal 5-15 [facility] Comment on above: Result Comment: Canc elled via OM: Order cancelled - Patient discharged Performed By: #### L 500.2500, L100.0100 ####[facility] [address] [place], [address] GLU Normal 74-106 [facility] Comment on above: Result Comment: Canc elled via OM: Order cancelled - Patient discharged Performed By: #### L 500.2500, L100.0100 ####[facility] [address] [place], [address] Potassium Normal 3.5-5.1 [facility] Comment on above: Result Comment: Canc elled via OM: Order cancelled - Patient discharged Performed By: #### L 500.2500, L100.0100 ####[facility] [address] [place], [address] Basic Metabolic Profile (BMP) Normal 136-145 [facility] Comment on above: Result Comment: Canc elled via OM: Order cancelled - Patient discharged Performed By: #### L 500.2500, L100.0100 ####[facility] [address] [place], [address] CBC W/Diff, Automatedon 08-0 Absolute Neut Normal 2.0-7.7 [facility] Comment on above: Result Comment: Canc elled via OM: Order cancelled - Patient discharged Performed By: #### L 500.2500, L100.0100 ####[facility] [address] [place], [address] HCT Normal 40-54 [facility] Comment on above: Result Comment: Canc elled via OM: Order cancelled - Patient discharged Performed By: #### L 500.2500, L100.0100 ####[facility] [address] [place], [address] HGB Normal 13.0-16.5 [facility] Comment on above: Result Comment: Canc elled via OM: Order cancelled - Patient discharged Performed By: #### L 500.2500, L100.0100 ####[facility] [address] [place], [address] MCH Normal 27.0-32.0 [facility] Comment on above: Result Comment: Canc elled via OM: Order cancelled - Patient discharged Performed By: #### L 500.2500, L100.0100 ####[facility] [address] [place], [address] MCHC Normal 32-36 [facility] Comment on above: Result Comment: Canc elled via OM: Order cancelled - Patient discharged Performed By: #### L 500.2500, L100.0100 ####[facility] [address] [place], [address] MCV Normal 80-94 [facility] Comment on above: Result Comment: Canc elled via OM: Order cancelled - Patient discharged Performed By: #### L 500.2500, L100.0100 ####[facility] [address] [place], [address] NEUT% Normal 47-70 [facility] Comment on above: Result Comment: Canc elled via OM: Order cancelled - Patient discharged Performed By: #### L 500.2500, L100.0100 ####[facility] [address] [place], [address] PLT Normal 150-450 [facility] Comment on above: Result Comment: Canc elled via OM: Order cancelled - Patient discharged Performed By: #### L 500.2500, L100.0100 ####[facility] [address] [place], [address] RBC Normal 4.6-6.2 [facility] Comment on above: Result Comment: Canc elled via OM: Order cancelled - Patient discharged Performed By: #### L 500.2500, L100.0100 ####[facility] [address] [place], [address] RDW CV Normal 11.6-14.6 [facility] Comment on above: Result Comment: Canc elled via OM: Order cancelled - Patient discharged Performed By: #### L 500.2500, L100.0100 ####[facility] [address] [place], [address] RDW SD Normal 35.1-43.9 [facility] Comment on above: Result Comment: Canc elled via OM: Order cancelled - Patient discharged Performed By: #### L 500.2500, L100.0100 ####[facility] [address] [place], [address] WBC Normal 4.4-11.0 [facility] Comment on above: Result Comment: Canc elled via OM: Order cancelled - Patient discharged Performed By: #### L 500.2500, L100.0100 ####[facility] [address] [place], [address] Basic Metabolic Profile (BMP )on 06-24-2024 BUN Normal 7-18 [facility] Comment on above: Result Comment: Canc elled via OM: Order cancelled - Patient discharged Performed By: #### L 100.0100, L500.2500 ####[facility] [address] [place], [address] BUN/CRE Normal 10-20 [facility] Comment on above: Result Comment: Canc elled via OM: Order cancelled - Patient discharged Performed By: #### L 100.0100, L500.2500 ####[facility] [address] [place], [address] CA,Total Normal 8.5-10.1 [facility] Comment on above: Result Comment: Canc elled via OM: Order cancelled - Patient discharged Performed By: #### L 100.0100, L500.2500 ####[facility] [address] [place], [address] CL Normal 98-107 [facility] Comment on above: Result Comment: Canc elled via OM: Order cancelled - Patient discharged Performed By: #### L 100.0100, L500.2500 ####[facility] [address] [place], [address] CO2 Normal 21.0-32.0 [facility] Comment on above: Result Comment: Canc elled via OM: Order cancelled - Patient discharged Performed By: #### L 100.0100, L500.2500 ####[facility] [address] [place], [address] CREAT,SERUM Normal 0.70-1.30 [facility] Comment on above: Result Comment: Canc elled via OM: Order cancelled - Patient discharged Performed By: #### L 100.0100, L500.2500 ####[facility] [address] [place], [address] EST GFR Normal >60 [facility] Comment on above: Result Comment: Canc elled via OM: Order cancelled - Patient discharged Performed By: #### L 100.0100, L500.2500 ####[facility] [address] [place], [address] EST GFR - AA Normal >60 [facility] Comment on above: Result Comment: Canc elled via OM: Order cancelled - Patient discharged Performed By: #### L 100.0100, L500.2500 ####[facility] [address] [place], [address] GAP Normal 5-15 [facility] Comment on above: Result Comment: Canc elled via OM: Order cancelled - Patient discharged Performed By: #### L 100.0100, L500.2500 ####[facility] [address] [place], [address] GLU Normal 74-106 [facility] Comment on above: Result Comment: Canc elled via OM: Order cancelled - Patient discharged Performed By: #### L 100.0100, L500.2500 ####[facility] [address] [place], [address] Potassium Normal 3.5-5.1 [facility] Comment on above: Result Comment: Canc elled via OM: Order cancelled - Patient discharged Performed By: #### L 100.0100, L500.2500 ####[facility] [address] [place], [address] Basic Metabolic Profile (BMP) Normal 136-145 [facility] Comment on above: Result Comment: Canc elled via OM: Order cancelled - Patient discharged Performed By: #### L 100.0100, L500.2500 ####[facility] [address] [place], [address] CBC W/Diff, Automatedon 08-0 Absolute Neut Normal 2.0-7.7 [facility] Comment on above: Result Comment: Canc elled via OM: Order cancelled - Patient discharged Performed By: #### L 100.0100, L500.2500 ####[facility] [address] [place], [address] HCT Normal 40-54 [facility] Comment on above: Result Comment: Canc elled via OM: Order cancelled - Patient discharged Performed By: #### L 100.0100, L500.2500 ####[facility] [address] [place], [address] HGB Normal 13.0-16.5 [facility] Comment on above: Result Comment: Canc elled via OM: Order cancelled - Patient discharged Performed By: #### L 100.0100, L500.2500 ####[facility] [address] [place], [address] MCH Normal 27.0-32.0 [facility] Comment on above: Result Comment: Canc elled via OM: Order cancelled - Patient discharged Performed By: #### L 100.0100, L500.2500 ####[facility] [address] [place], [address] MCHC Normal 32-36 [facility] Comment on above: Result Comment: Canc elled via OM: Order cancelled - Patient discharged Performed By: #### L 100.0100, L500.2500 ####[facility] [address] [place], [address] MCV Normal 80-94 [facility] Comment on above: Result Comment: Canc elled via OM: Order cancelled - Patient discharged Performed By: #### L 100.0100, L500.2500 ####[facility] [address] [place], [address] NEUT% Normal 47-70 [facility] Comment on above: Result Comment: Canc elled via OM: Order cancelled - Patient discharged Performed By: #### L 100.0100, L500.2500 ####[facility] [address] [place], [address] PLT Normal 150-450 [facility] [facility] Comment on above: Result Comment: Canc elled via OM: Order cancelled - Patient discharged Performed By: #### L 100.0100, L500.2500 ####[facility] [address] [place], [address] RBC Normal 4.6-6.2 [facility] Comment on above: Result Comment: Canc elled via OM: Order cancelled - Patient discharged Performed By: #### L 100.0100, L500.2500 ####[facility] [address] [place], [address] RDW CV Normal 11.6-14.6 [facility] Comment on above: Result Comment: Canc elled via OM: Order cancelled - Patient discharged Performed By: #### L 100.0100, L500.2500 ####[facility] [address] [place], [address] RDW SD Normal 35.1-43.9 [facility] Comment on above: Result Comment: Canc elled via OM: Order cancelled - Patient discharged Performed By: #### L 100.0100, L500.2500 ####[facility] [address] [place], [address] WBC Normal 4.4-11.0 [facility] Comment on above: Result Comment: Canc elled via OM: Order cancelled - Patient discharged Performed By: #### L 100.0100, L500.2500 ####[facility] [address] [place], [address] Culture, Blood (WB)on 2023 CUB Blood cultures x2, f rom two different sites No growth in 5 days. Normal [facility] Comment on above: Performed By: #### M 200.1000 ####[facility] [address] [place], [address] Basic Metabolic Profile (BMP )on 06-23-2024 BUN/CRE 14.0 RATIO Normal 10-20 [facility] Comment on above: Performed By: #### L 500.2500, L100.0100 ####[facility] [address] [place], [address] CA,Total 8.7 mg/dL Normal 8.5-10.1 [facility] Comment on above: Performed By: #### L 500.2500, L100.0100 ####[facility] [address] [place], [address] Chloride [Moles/Vol] 105 mmol/L Normal 98-107 [facility] Comment on above: Performed By: #### L 500.2500, L100.0100 ####[facility] [address] [place], [address] CO2 [Moles/Vol] 29.0 mmol/L Normal 21.0-32.0 [facility] Comment on above: Performed By: #### L 500.2500, L100.0100 ####[facility] [address] [place], [address] Creatinine [Mass/Vol] 1.29 mg/dL Normal 0.70-1.30 [facility] Comment on above: Result Comment: The validity of the calculated GFR GFRAA in patients over70 years has not been determined. Clinical correlation isessential. Performed By: #### L 500.2500, L100.0100 ####[facility] [address] [place], [address] ECRCL 60.84 ml/min Normal [facility] Comment on above: Performed By: #### L 500.2500, L100.0100 ####[facility] [address] [place], [address] EST GFR - AA 69 mL/min Normal >60 [facility] Comment on above: Result Comment: Afri can Ecuadorean GFR Calc Performed By: #### L 500.2500, L100.0100 ####[facility] [address] [place], [address] GAP 5 Normal 5-15 [facility] Comment on above: Performed By: #### L 500.2500, L100.0100 ####[facility] [address] [place], [address] GFR/1.73 sq M.predicted among non-blacks MDRD (S/P/Bld) [Vol rate/Area] 57 mL/min/{1.73_m2} Low >60 [facility] Comment on above: Result Comment: Non- GFR Calc Performed By: #### L 500.2500, L100.0100 ####[facility] [address] [place], [address] Glucose [Mass/Vol] 116 mg/dL High 74-106 [facility] Comment on above: Result Comment: Fast ing Glucose result from 100 to 125 mg/dLsuggests IMPAIRED HOMEOSTASIS per A.D.A. criteria. Performed By: #### L 500.2500, L100.0100 ####[facility] [address] [place], [address] Potassium [Moles/Vol] 3.7 mmol/L Normal 3.5-5.1 [facility] Comment on above: Performed By: #### L 500.2500, L100.0100 ####[facility] [address] [place], [address] Sodium [Moles/Vol] 139 mmol/L Normal 136-145 [facility] Comment on above: Performed By: #### L 500.2500, L100.0100 ####[facility] [address] [place], [address] Urea nitrogen [Mass/Vol] 18 mg/dL Normal 7-18 [facility] Comment on above: Performed By: #### L 500.2500, L100.0100 ####[facility] [address] [place], [address] CBC W/Diff, Automatedon 07-3 PATH REV Reviewed Normal [facility] Comment on above: Order Comment: CRITI CHANCE VALUE VERIFIED. CALLED TO KLRUGH96/31/24 0703 Yue Pruitt.RESULTS READ BACK BY SAME . Result Comment: Abso lute lymphocytosis suggestive of low grade lympho-proliferative disorder.Clinical correlation is necessary.MILD Thrombocytopenia.MACROCYTOSISLoi Adame M.D. 06/23/24 AMENDED REPORT 06/23/24 1344 PATH REV previously reported as: March Performed By: #### L 500.2500, L100.0100 ####[facility] [address] [place], [address] PATH REV Reviewed Normal [facility] Comment on above: Result Comment: Abso lute lymphocytosis suggestive of low grade lympho-proliferative disorder.Clinical correlation is necessary.MILD Thrombocytopenia.MACROCYTOSISLoi Adame M.D. 06/23/24 AMENDED REPORT 06/23/24 1341 PATH REV previously reported as: March Performed By: #### L 500.2500, L100.0100 ####[facility] [address] [place], [address] Discharge Instructionon 05-26 Discharge Instruction Normal [facility] Basic Metabolic Profile (BMP )on 2024 BUN/CRE 12.0 RATIO Normal 10-20 [facility] Comment on above: Performed By: #### L 500.2500, L100.0100 ####[facility] [address] [place], [address] CA,Total 9.0 mg/dL Normal 8.5-10.1 [facility] Comment on above: Performed By: #### L 500.2500, L100.0100 ####[facility] [address] [place], [address] Chloride [Moles/Vol] 105 mmol/L Normal 98-107 [facility] Comment on above: Performed By: #### L 500.2500, L100.0100 ####[facility] [address] [place], [address] CO2 [Moles/Vol] 27.0 mmol/L Normal 21.0-32.0 [facility] Comment on above: Performed By: #### L 500.2500, L100.0100 ####[facility] [address] [place], [address] Creatinine [Mass/Vol] 1.25 mg/dL Normal 0.70-1.30 [facility] Comment on above: Result Comment: The validity of the calculated GFR GFRAA in patients over70 years has not been determined. Clinical correlation isessential. Performed By: #### L 500.2500, L100.0100 ####[facility] [address] [place], [address] ECRCL 62.79 ml/min Normal [facility] Comment on above: Performed By: #### L 500.2500, L100.0100 ####[facility] [address] [place], [address] EST GFR - AA 71 mL/min Normal >60 [facility] Comment on above: Result Comment: Afri can Ecuadorean GFR Calc Performed By: #### L 500.2500, L100.0100 ####[facility] [address] [place], [address] GAP 7 Normal 5-15 [facility] Comment on above: Performed By: #### L 500.2500, L100.0100 ####[facility] [address] [place], [address] GFR/1.73 sq M.predicted among non-blacks MDRD (S/P/Bld) [Vol rate/Area] 59 mL/min/{1.73_m2} Low >60 [facility] Comment on above: Result Comment: Non- GFR Calc Performed By: #### L 500.2500, L100.0100 ####[facility] [address] [place], [address] Glucose [Mass/Vol] 118 mg/dL High 74-106 [facility] Comment on above: Result Comment: Fast ing Glucose result from 100 to 125 mg/dLsuggests IMPAIRED HOMEOSTASIS per A.D.A. criteria. Performed By: #### L 500.2500, L100.0100 ####[facility] [address] [place], [address] Potassium [Moles/Vol] 3.9 mmol/L Normal 3.5-5.1 [facility] Comment on above: Performed By: #### L 500.2500, L100.0100 ####[facility] [address] [place], [address] Sodium [Moles/Vol] 139 mmol/L Normal 136-145 [facility] Comment on above: Performed By: #### L 500.2500, L100.0100 ####[facility] [address] [place], [address] Urea nitrogen [Mass/Vol] 15 mg/dL Normal 7-18 [facility] Comment on above: Performed By: #### L 500.2500, L100.0100 ####[facility] [address] [place], [address] Basic Metabolic Profile (BMP )on 06-21-2024 BUN/CRE 12.7 RATIO Normal 10-20 [facility] Comment on above: Performed By: #### L 100.0100, L500.2500 ####[facility] [address] [place], [address] CA,Total 8.8 mg/dL Normal 8.5-10.1 [facility] Comment on above: Performed By: #### L 100.0100, L500.2500 ####[facility] [address] [place], [address] Chloride [Moles/Vol] 108 mmol/L High 98-107 [facility] Comment on above: Performed By: #### L 100.0100, L500.2500 ####[facility] [address] [place], [address] CO2 [Moles/Vol] 26.0 mmol/L Normal 21.0-32.0 [facility] Comment on above: Performed By: #### L 100.0100, L500.2500 ####[facility] [address] [place], [address] Creatinine [Mass/Vol] 1.34 mg/dL High 0.70-1.30 [facility] Comment on above: Result Comment: The validity of the calculated GFR GFRAA in patients over70 years has not been determined. Clinical correlation isessential. Performed By: #### L 100.0100, L500.2500 ####[facility] [address] [place], [address] ECRCL 59.56 ml/min Normal [facility] Comment on above: Performed By: #### L 100.0100, L500.2500 ####[facility] [address] [place], [address] EST GFR - AA 66 mL/min Normal >60 [facility] Comment on above: Result Comment: Afri can Ecuadorean GFR Calc Performed By: #### L 100.0100, L500.2500 ####[facility] [address] [place], [address] GAP 5 Normal 5-15 [facility] Comment on above: Performed By: #### L 100.0100, L500.2500 ####[facility] [address] [place], [address] GFR/1.73 sq M.predicted among non-blacks MDRD (S/P/Bld) [Vol rate/Area] 54 mL/min/{1.73_m2} Low >60 [facility] Comment on above: Result Comment: Non- GFR Calc Performed By: #### L 100.0100, L500.2500 ####[facility] [address] [place], [address] Glucose [Mass/Vol] 127 mg/dL High 74-106 [facility] Comment on above: Result Comment: Fast ing Glucose result greater than or equal to 126 mg/dLsuggests DIABETES MELLITUS per A.D.A. criteria. Performed By: #### L 100.0100, L500.2500 ####[facility] [address] [place], [address] Potassium [Moles/Vol] 3.6 mmol/L Normal 3.5-5.1 [facility] Comment on above: Performed By: #### L 100.0100, L500.2500 ####[facility] [address] [place], [address] Sodium [Moles/Vol] 139 mmol/L Normal 136-145 [facility] Comment on above: Performed By: #### L 100.0100, L500.2500 ####[facility] [address] [place], [address] Urea nitrogen [Mass/Vol] 17 mg/dL Normal 7-18 [facility] Comment on above: Performed By: #### L 100.0100, L500.2500 ####[facility] [address] [place], [address] CBC W/Diff, Automatedon - PATH REV Reviewed Normal [facility] Comment on above: Result Comment: Abso lute lymphocytosis suggestive of low grade lympho-proliferative disorder.Clinical correlation is necessary.Macrocytic anemia.MILD Thrombocytopenia.Loi Adame M.D. 06/21/24E AMENDED REPORT 06/21/24 1443 PATH REV previously reported as: Reviewed Performed By: #### L 100.0100, L500.2500 ####[facility] [address] [place], [address] PATH REV Reviewed Normal [facility] Comment on above: Result Comment: Abso lute lymphocytosis suggestive of low grade lympho-proliferative disorder.Clinical correlation is necessary.Macrocytic anemia.MILD Thrombocytopenia.Loi Adame M.D. 06/21/24 AMENDED REPORT 06/21/24 1442 PATH REV previously reported as: March Performed By: #### L 100.0100, L500.2500 ####[facility] [address] [place], [address] PATH REV Reviewed Normal [facility] Comment on above: Order Comment: CRITI CHANCE VALUE VERIFIED. CALLED TO MARLEY MILTON06/19/24 0801 Yue Pruitt.RESULTS READ BACK BY SAME . Result Comment: Abso lute lymphocytosis suggestive of low grade lympho-proliferative disorder.Clinical correlation is necessary.Macrocytic anemia.MILD Thrombocytopenia.Loi Adame M.D. 06/21/24 AMENDED REPORT 06/21/24 1432 PATH REV previously reported as: March Performed By: #### L 100.0100, L500.2500, L500.4100 ####[facility] [address] [place], [address] PATH REV Reviewed Normal [facility] Comment on above: Result Comment: Abso lute lymphocytosis suggestive of low grade lympho-proliferative disorder.Clinical correlation is necessary.MILD Thrombocytopenia.MACROCYTOSIS.Loi Adame M.D. 06/21/24 AMENDED REPORT 06/21/24 1431 PATH REV previously reported as: March Performed By: #### L 501.4020, L500.2500, L300.3900, L300.4310, L100.0100 ####[facility] [address] [place], [place], [address] Consultation - Infectious Dx on 06-21-2024 Consultation - Infectious Dx Normal [facility] Consultation - Oncology IPon 06-21-2024 Consultation - Oncology IP Normal [facility] Basic Metabolic Profile (BMP )on 06-20-2024 BUN/CRE 14.7 RATIO Normal 10-20 [facility] Comment on above: Performed By: #### L 100.0100, L500.2500 ####[facility] [address] [place], [address] CA,Total 8.8 mg/dL Normal 8.5-10.1 [facility] Comment on above: Performed By: #### L 100.0100, L500.2500 ####[facility] [address] [place], [address] Chloride [Moles/Vol] 110 mmol/L High 98-107 [facility] Comment on above: Performed By: #### L 100.0100, L500.2500 ####[facility] [address] [place], [address] CO2 [Moles/Vol] 25.0 mmol/L Normal 21.0-32.0 [facility] Comment on above: Performed By: #### L 100.0100, L500.2500 ####[facility] [address] [place], [address] Creatinine [Mass/Vol] 1.29 mg/dL Normal 0.70-1.30 [facility] Comment on above: Result Comment: The validity of the calculated GFR GFRAA in patients over70 years has not been determined. Clinical correlation isessential. Performed By: #### L 100.0100, L500.2500 ####[facility] [address] [place], [address] ECRCL 61.87 ml/min Normal [facility] Comment on above: Performed By: #### L 100.0100, L500.2500 ####[facility] [address] [place], [address] EST GFR - AA 69 mL/min Normal >60 [facility] Comment on above: Result Comment: Afri can Ecuadorean GFR Calc Performed By: #### L 100.0100, L500.2500 ####[facility] [address] [place], [address] GAP 5 Normal 5-15 [facility] Comment on above: Performed By: #### L 100.0100, L500.2500 ####[facility] [address] [place], [address] GFR/1.73 sq M.predicted among non-blacks MDRD (S/P/Bld) [Vol rate/Area] 57 mL/min/{1.73_m2} Low >60 [facility] Comment on above: Result Comment: Non- GFR Calc Performed By: #### L 100.0100, L500.2500 ####[facility] [address] [place], [address] Glucose [Mass/Vol] 121 mg/dL High 74-106 [facility] Comment on above: Result Comment: Fast ing Glucose result from 100 to 125 mg/dLsuggests IMPAIRED HOMEOSTASIS per A.D.A. criteria. Performed By: #### L 100.0100, L500.2500 ####[facility] [address] [place], [address] Potassium [Moles/Vol] 4.3 mmol/L Normal 3.5-5.1 [facility] Comment on above: Performed By: #### L 100.0100, L500.2500 ####[facility] [address] [place], [address] Sodium [Moles/Vol] 140 mmol/L Normal 136-145 [facility] Comment on above: Performed By: #### L 100.0100, L500.2500 ####[facility] [address] [place], [address] Urea nitrogen [Mass/Vol] 19 mg/dL High 7-18 [facility] Comment on above: Performed By: #### L 100.0100, L500.2500 ####[facility] [address] [place], [address] Urine Cultureon 06-20-2024 URC Normal [facility] Comment on above: Performed By: #### M 100.2200 ####[facility] [address] [place], [address] Basic Metabolic Profile (BMP )on 06-19-2024 BUN/CRE 13.2 RATIO Normal 10-20 [facility] Comment on above: Order Comment: Comme nts: NPO at [place] prior to lipid panel Performed By: #### L 100.0100, L500.2500, L500.4100 ####[facility] [address] [place], [address] CA,Total 8.2 mg/dL Low 8.5-10.1 [facility] Comment on above: Order Comment: Comme nts: NPO at [place] prior to lipid panel Performed By: #### L 100.0100, L500.2500, L500.4100 ####[facility] [address] [place], [address] Chloride [Moles/Vol] 111 mmol/L High 98-107 [facility] Comment on above: Order Comment: Comme nts: NPO at [place] prior to lipid panel Performed By: #### L 100.0100, L500.2500, L500.4100 ####[facility] [address] [place], [address] CO2 [Moles/Vol] 22.0 mmol/L Normal 21.0-32.0 [facility] Comment on above: Order Comment: Comme nts: NPO at [place] prior to lipid panel Performed By: #### L 100.0100, L500.2500, L500.4100 ####[facility] [address] [place], [address] Creatinine [Mass/Vol] 1.36 mg/dL High 0.70-1.30 [facility] Comment on above: Order Comment: Comme nts: NPO at [place] prior to lipid panel Result Comment: The validity of the calculated GFR GFRAA in patients over70 years has not been determined. Clinical correlation isessential. Performed By: #### L 100.0100, L500.2500, L500.4100 ####[facility] [address] [place], [address] ECRCL 58.69 ml/min Normal [facility] Comment on above: Order Comment: Comme nts: NPO at [place] prior to lipid panel Performed By: #### L 100.0100, L500.2500, L500.4100 ####[facility] [address] [place], [address] EST GFR - AA 65 mL/min Normal >60 [facility] Comment on above: Order Comment: Comme nts: NPO at [place] prior to lipid panel Result Comment: Afri can Ecuadorean GFR Calc Performed By: #### L 100.0100, L500.2500, L500.4100 ####[facility] [address] [place], [address] GAP 7 Normal 5-15 [facility] Comment on above: Order Comment: Comme nts: NPO at [place] prior to lipid panel Performed By: #### L 100.0100, L500.2500, L500.4100 ####[facility] [address] [place], [address] GFR/1.73 sq M.predicted among non-blacks MDRD (S/P/Bld) [Vol rate/Area] 54 mL/min/{1.73_m2} Low >60 [facility] Comment on above: Order Comment: Comme nts: NPO at [place] prior to lipid panel Result Comment: Non- GFR Calc Performed By: #### L 100.0100, L500.2500, L500.4100 ####[facility] [address] [place], [address] Glucose [Mass/Vol] 145 mg/dL High 74-106 [facility] Comment on above: Order Comment: Comme nts: NPO at [place] prior to lipid panel Result Comment: Fast ing Glucose result greater than or equal to 126 mg/dLsuggests DIABETES MELLITUS per A.D.A. criteria. Performed By: #### L 100.0100, L500.2500, L500.4100 ####[facility] [address] [place], [address] Potassium [Moles/Vol] 4.4 mmol/L Normal 3.5-5.1 [facility] Comment on above: Order Comment: Comme nts: NPO at [place] prior to lipid panel Performed By: #### L 100.0100, L500.2500, L500.4100 ####[facility] [address] [place], [address] Sodium [Moles/Vol] 140 mmol/L Normal 136-145 [facility] Comment on above: Order Comment: Comme nts: NPO at [place] prior to lipid panel Performed By: #### L 100.0100, L500.2500, L500.4100 ####[facility] [address] [place], [address] Urea nitrogen [Mass/Vol] 18 mg/dL Normal 7-18 [facility] Comment on above: Order Comment: Comme nts: NPO at [place] prior to lipid panel Performed By: #### L 100.0100, L500.2500, L500.4100 ####[facility] [address] [place], [address] Brain W/WO Contraston 2023 Brain W/WO Contrast Normal [facility] Lipid Profileon 06-19-2024 Cholesterol [Mass/Vol] 178 mg/dL Normal 200 [facility] Comment on above: Order Comment: Comme nts: NPO at [place] prior to lipid panel Result Comment: <200 mg/dL Desirable 200-240 mg/dL Borderline >240 mg/dL High Risk Performed By: #### L 100.0100, L500.2500, L500.4100 ####[facility] [address] [place], [address] Cholesterol in HDL [Mass/Vol] 41 mg/dL Normal [facility] Comment on above: Order Comment: Comme nts: NPO at [place] prior to lipid panel Result Comment: The drugs N-Acetylcysteine and Metamizole may falselydepress this assay. Reference Range HDL <40 mg/dL Low HDL Cholesterol HDL >or= 60 mg/dL High HDL Cholesterol Performed By: #### L 100.0100, L500.2500, L500.4100 ####[facility] [address] [place], [address] Cholesterol in LDL [Mass/Vol] 128 mg/dL Normal 0-130 [facility] Comment on above: Order Comment: Comme nts: NPO at [place] prior to lipid panel Performed By: #### L 100.0100, L500.2500, L500.4100 ####[facility] [address] [place], [address] Cholesterol in VLDL [Mass/Vol] 9 mg/dL Normal 5-40 [facility] Comment on above: Order Comment: Comme nts: NPO at [place] prior to lipid panel Performed By: #### L 100.0100, L500.2500, L500.4100 ####[facility] [address] [place], [address] Triglyceride [Mass/Vol] 45 mg/dL Normal [facility] Comment on above: Order Comment: Comme nts: NPO at [place] prior to lipid panel Result Comment: The drugs N-Acetylcysteine and Metamizole may falselydepress this assay.Serum Triglycerides Reference Interval Normal <150 mg/dL Borderline high 150 - 199 mg/dL High 200 - 499 mg/dL Very High > or = 500 mg/dL Performed By: #### L 100.0100, L500.2500, L500.4100 ####[facility] [address] [place], [address] MR/CON.PCM.NEon 06-19-2024 MR/CON.PCM.NE Normal [facility] Urine Drug Screen ([facility])on 06-19-2024 AMPHETAMINES Negative Normal <1000 ng/mL [facility] Comment on above: Performed By: #### L 505.5000 ####[facility] [address] [place], [address] BARBITIURATES Negative Normal < 200 ng/mL [facility] Comment on above: Performed By: #### L 505.5000 ####[facility] [address] [place], [address] BENZODIAZIPINE Negative Normal < 200 ng/mL [facility] Comment on above: Performed By: #### L 505.5000 ####[facility] [address] [place], [address] COCAINE Negative Normal < 300 ng/mL [facility] Comment on above: Performed By: #### L 505.5000 ####[facility] [address] [place], [address] ECSTACY Negative Normal < 500 ng/mL [facility] Comment on above: Performed By: #### L 505.5000 ####[facility] [address] [place], [address] METHADONE Negative Normal < 300 ng/mL [facility] Comment on above: Performed By: #### L 505.5000 ####[facility] [address] [place], [address] OPIATES Negative Normal < 300 ng/mL [facility] Comment on above: Performed By: #### L 505.5000 ####[facility] [address] [place], [address] PCP Negative Normal < 25 ng/mL [facility] Comment on above: Performed By: #### L 505.5000 ####[facility] [address] [place], [address] THC Negative Normal < 50 ng/mL [facility] Comment on above: Performed By: #### L 505.5000 ####[facility] [address] [place], [address] VISTA UDS PH 5 Normal [facility] Comment on above: Performed By: #### L 505.5000 ####[facility] [address] [place], [address] 12 Lead EKGon 06-18-2024 12 Lead EKG Normal [facility] Basic Metabolic Profile (BMP )on 06-18-2024 BUN/CRE 11.8 RATIO Normal 10-20 [facility] Comment on above: Order Comment: 'TROP ' Serial specimen #1, #2 or #3: 1 Performed By: #### L 501.4020, L500.2500, L300.3900, L300.4310, L100.0100 ####[facility] [address] [place], [address] CA,Total 9.1 mg/dL Normal 8.5-10.1 [facility] Comment on above: Order Comment: 'TROP ' Serial specimen #1, #2 or #3: 1 Performed By: #### L 501.4020, L500.2500, L300.3900, L300.4310, L100.0100 ####[facility] [address] [place], [address] Chloride [Moles/Vol] 106 mmol/L Normal 98-107 [facility] Comment on above: Order Comment: 'TROP ' Serial specimen #1, #2 or #3: 1 Performed By: #### L 501.4020, L500.2500, L300.3900, L300.4310, L100.0100 ####[facility] [address] [place], [address] CO2 [Moles/Vol] 24.0 mmol/L Normal 21.0-32.0 [facility] Comment on above: Order Comment: 'TROP ' Serial specimen #1, #2 or #3: 1 Performed By: #### L 501.4020, L500.2500, L300.3900, L300.4310, L100.0100 ####[facility] [address] [place], [address] Creatinine [Mass/Vol] 1.87 mg/dL High 0.70-1.30 [facility] Comment on above: Order Comment: 'TROP ' Serial specimen #1, #2 or #3: 1 Result Comment: The validity of the calculated GFR GFRAA in patients over70 years has not been determined. Clinical correlation isessential. Performed By: #### L 501.4020, L500.2500, L300.3900, L300.4310, L100.0100 ####[facility] [address] [place], [address] ECRCL 43.16 ml/min Normal [facility] Comment on above: Order Comment: 'TROP ' Serial specimen #1, #2 or #3: 1 Performed By: #### L 501.4020, L500.2500, L300.3900, L300.4310, L100.0100 ####[facility] [address] [place], [address] EST GFR - AA 45 mL/min Low >60 [facility] Comment on above: Order Comment: 'TROP ' Serial specimen #1, #2 or #3: 1 Result Comment: Afri can Ecuadorean GFR Calc Performed By: #### L 501.4020, L500.2500, L300.3900, L300.4310, L100.0100 ####[facility] [address] [place], [address] GAP 7 Normal 5-15 [facility] Comment on above: Order Comment: 'TROP ' Serial specimen #1, #2 or #3: 1 Performed By: #### L 501.4020, L500.2500, L300.3900, L300.4310, L100.0100 ####[facility] [address] [place], [address] GFR/1.73 sq M.predicted among non-blacks MDRD (S/P/Bld) [Vol rate/Area] 37 mL/min/{1.73_m2} Low >60 [facility] Comment on above: Order Comment: 'TROP ' Serial specimen #1, #2 or #3: 1 Result Comment: Non- GFR Calc Performed By: #### L 501.4020, L500.2500, L300.3900, L300.4310, L100.0100 ####[facility] [address] [place], [address] Glucose [Mass/Vol] 190 mg/dL High 74-106 [facility] Comment on above: Order Comment: 'TROP ' Serial specimen #1, #2 or #3: 1 Result Comment: Fast ing Glucose result greater than or equal to 126 mg/dLsuggests DIABETES MELLITUS per A.D.A. criteria. Performed By: #### L 501.4020, L500.2500, L300.3900, L300.4310, L100.0100 ####[facility] [address] [place], [address] Potassium [Moles/Vol] 3.8 mmol/L Normal 3.5-5.1 [facility] Comment on above: Order Comment: 'TROP ' Serial specimen #1, #2 or #3: 1 Performed By: #### L 501.4020, L500.2500, L300.3900, L300.4310, L100.0100 ####[facility] [address] [place], [address] Sodium [Moles/Vol] 137 mmol/L Normal 136-145 [facility] Comment on above: Order Comment: 'TROP ' Serial specimen #1, #2 or #3: 1 Performed By: #### L 501.4020, L500.2500, L300.3900, L300.4310, L100.0100 ####[facility] [address] [place], [address] Urea nitrogen [Mass/Vol] 22 mg/dL High 7-18 [facility] Comment on above: Order Comment: 'TROP ' Serial specimen #1, #2 or #3: 1 Performed By: #### L 501.4020, L500.2500, L300.3900, L300.4310, L100.0100 ####[facility] [address] [place], [address] Bedside Glucoseon 06-18-2024 FINGERSTICK GLU 168 mg/dL High 74-106 [facility] Comment on above: Result Comment: ADRIANNA JOSEPH OF PATIENT CARE PER NURSING PROTOCOL Performed By: #### L 501.080 ####[facility] [address] [place], [address] Chest 1 Viewon 06-18-2024 Chest 1 View Normal [facility] Echo Complete W/ Contraston 06-18-2024 Echo Complete W/ Contrast Normal [facility] Emergency Department Summary on 06-18-2024 Emergency Department Summary Normal [facility] H AND P Exam - Hospitaliston 06-18-2024 H&P Exam - Hospitalist Normal [facility] Hemoglobin A1con 06-18-2024 HbA1c (Bld) [Mass fraction] 5.6 % Normal 3.8-5.6 [facility] Comment on above: Result Comment: Norm al < 5.7 % Prediabetic 5.7 - 6.4 % Diabetic >or= 6.5 % Please note range changes. Performed By: #### L 501.9520, L501.9985 ####[facility] [address] [place], [address] L501.4020on 06-18-2024 TROPONIN-I HS 8 pg/mL Normal 3.0-78.0 [facility] Comment on above: Order Comment: 'TROP ' Serial specimen #1, #2 or #3: 1 Result Comment: Dez cedeno Note: New Test Units and Gender Specific Reference Ranges. For more information see Policy Stat Procedure Cassatt High Sensitivity Troponin (TNIH) and attachments. Performed By: #### L 501.4020, L500.2500, L300.3900, L300.4310, L100.0100 ####[facility] [address] [place], [address] Lactic Acidon 06-18-2024 Lactate [Moles/Vol] 1.8 mmol/L Normal 0.4-1.9 [facility] Comment on above: Order Comment: Y Performed By: #### L 503.6005 ####[facility] [address] [place], [address] Partial Thromboplast Timeon 06-18-2024 aPTT Coag (Bld) [Time] 28.3 s Normal 24.1-36.2 [facility] Comment on above: Performed By: #### L 501.4020, L500.2500, L300.3900, L300.4310, L100.0100 ####[facility] [address] [place], [address] Prothrombin Time w/INRon INR Coag (PPP) [Relative time] 1.1 {INR} Normal [facility] Comment on above: Performed By: #### L 501.4020, L500.2500, L300.3900, L300.4310, L100.0100 ####[facility] [address] [place], [address] PT Coag (PPP) [Time] 14.1 s Normal 11.7-14.9 [facility] Comment on above: Performed By: #### L 501.4020, L500.2500, L300.3900, L300.4310, L100.0100 ####[facility] [address] [place], [address] STROKE Brain/Head without Co nton 06-18-2024 STROKE Brain/Head without Cont Normal [facility] STROKE CTA Head AND Neck W/C onon 06-18-2024 STROKE CTA Head AND Neck W/Con Normal [facility] Thyroid Stim Hormone (TSH)on 07-26-2024 TSH 3.40 uIU/mL Normal 0.358-3.74 [facility] Comment on above: Performed By: #### L 501.9520, L501.9985 ####[facility] [address] [place], [address] Urinalysis, Completeon 06-18 EPI,SQUAMOUS 0-5 SEEN Normal 0-5 [facility] Comment on above: Order Comment: JAMIE CTOR TO SPECIFY Performed By: #### L 400.0001 ####[facility] [address] [place], [address] RBC 0-5 SEEN Normal 0-5 [facility] Comment on above: Order Comment: JAMIE CTOR TO SPECIFY Performed By: #### L 400.0001 ####[facility] [address] [place], [address] WBC 0-5 SEEN Normal 0-5 [facility] Comment on above: Order Comment: JAMIE CTOR TO SPECIFY Performed By: #### L 400.0001 ####[facility] [address] [place], [address] BACTERIA 0 SEEN Normal None Seen [facility] Comment on above: Order Comment: JAMIE CTOR TO SPECIFY Performed By: #### L 400.0001 ####[facility] [address] [place], [address] Mucus Ql (Urine sed) 0 SEEN Normal [facility] Comment on above: Order Comment: JAMIE CTOR TO SPECIFY Performed By: #### L 400.0001 ####[facility] [address] [place], [address] Orthopedic Visit Reporton Orthopedic Visit Report Normal [facility] Insulin Levelon 05-19-2024 INSULIN,FASTING 60.3 uIU/mL High 2.6-24.9 [facility] Comment on above: Order Comment: PER B ERRY OFFICE-NO BW FROM HIM JUST MRI Result Comment: Perf ormed at: - [facility] [address] [place], [place] [id number] Director: Fernie Pate PhD, Phone: [phone] Performed By: #### L 501.9985, L3300.3500, L500.4050 ####[facility] [address] [place], [address] Comprehensive Metabolic Prof ilon 05-18-2024 Albumin [Mass/Vol] 3.9 g/dL Normal 3.2-5.0 [facility] Comment on above: Order Comment: PER B ERRY OFFICE-NO BW FROM HIM JUST MRI Performed By: #### L 501.9985, L3300.3500, L500.4050 ####[facility] [address] [place], [address] Albumin/Globulin [Mass ratio] 1.1 {ratio} Normal 0.9-2.4 [facility] Comment on above: Order Comment: PER B ERRY OFFICE-NO BW FROM HIM JUST MRI Performed By: #### L 501.9985, L3300.3500, L500.4050 ####[facility] [address] [place], [address] ALK P 93 U/L Normal 45-117 [facility] Comment on above: Order Comment: PER B ERRY OFFICE-NO BW FROM HIM JUST MRI Performed By: #### L 501.9985, L3300.3500, L500.4050 ####[facility] [address] [place], [address] ALT [Catalytic activity/Vol] 22 U/L Normal 16-61 [facility] Comment on above: Order Comment: PER B ERRY OFFICE-NO BW FROM HIM JUST MRI Performed By: #### L 501.9985, L3300.3500, L500.4050 ####[facility] [address] [place], [address] AST [Catalytic activity/Vol] 19 U/L Normal 15-37 [facility] Comment on above: Order Comment: PER B ERRY OFFICE-NO BW FROM HIM JUST MRI Performed By: #### L 501.9985, L3300.3500, L500.4050 ####[facility] [address] [place], [address] Bilirubin [Mass/Vol] 0.70 mg/dL Normal 0.20-1.00 [facility] Comment on above: Order Comment: PER B ERRY OFFICE-NO BW FROM HIM JUST MRI Result Comment: For patients on eltrombopag therapy, use of Dimension Cassatt TBIL is not recommended. Performed By: #### L 501.9985, L3300.3500, L500.4050 ####[facility] [address] [place], [address] BUN/CRE 11.9 RATIO Normal 10-20 [facility] Comment on above: Order Comment: PER B ENEDINAY OFFICE-NO BW FROM HIM JUST MRI Performed By: #### L 501.9985, L3300.3500, L500.4050 ####[facility] [address] [place], [address] CA,Total 9.2 mg/dL Normal 8.5-10.1 [facility] Comment on above: Order Comment: CORA MCCONNELLY OFFICE-NO BW FROM HIM JUST MRI Performed By: #### L 501.9985, L3300.3500, L500.4050 ####[facility] [address] [place], [address] Chloride [Moles/Vol] 107 mmol/L Normal 98-107 [facility] Comment on above: Order Comment: PER B ENEDINAY OFFICE-NO BW FROM HIM JUST MRI Performed By: #### L 501.9985, L3300.3500, L500.4050 ####[facility] [address] [place], [address] CO2 [Moles/Vol] 25.0 mmol/L Normal 21.0-32.0 [facility] Comment on above: Order Comment: PER B ENEDINAY OFFICE-NO BW FROM HIM JUST MRI Performed By: #### L 501.9985, L3300.3500, L500.4050 ####[facility] [address] [place], [address] Creatinine [Mass/Vol] 1.34 mg/dL High 0.70-1.30 [facility] Comment on above: Order Comment: PER B ENEDINAY OFFICE-NO BW FROM HIM JUST MRI Result Comment: The validity of the calculated GFR GFRAA in patients over70 years has not been determined. Clinical correlation isessential. Performed By: #### L 501.9985, L3300.3500, L500.4050 ####[facility] [address] [place], [address] EST GFR - AA 66 mL/min Normal >60 [facility] Comment on above: Order Comment: PER B VIOLETTE OFFICE-NO BW FROM HIM JUST MRI Result Comment: Afri can Ecuadorean GFR Calc Performed By: #### L 501.9985, L3300.3500, L500.4050 ####[facility] [address] [place], [address] GAP 6 Normal 5-15 [facility] Comment on above: Order Comment: PER B VIOLETTE OFFICE-NO BW FROM HIM JUST MRI Performed By: #### L 501.9985, L3300.3500, L500.4050 ####[facility] [address] [place], [address] GFR/1.73 sq M.predicted among non-blacks MDRD (S/P/Bld) [Vol rate/Area] 54 mL/min/{1.73_m2} Low >60 [facility] Comment on above: Order Comment: PER B ERRY OFFICE-NO BW FROM HIM JUST MRI Result Comment: Non- GFR Calc Performed By: #### L 501.9985, L3300.3500, L500.4050 ####[facility] [address] [place], [address] Globulin (S) [Mass/Vol] 3.4 g/dL Normal 2.2-4.2 [facility] Comment on above: Order Comment: PER B ERRY OFFICE-NO BW FROM HIM JUST MRI Performed By: #### L 501.9985, L3300.3500, L500.4050 ####[facility] [address] [place], [address] Glucose [Mass/Vol] 132 mg/dL High 74-106 [facility] Comment on above: Order Comment: PER B ERRY OFFICE-NO BW FROM HIM JUST MRI Result Comment: Fast ing Glucose result greater than or equal to 126 mg/dLsuggests DIABETES MELLITUS per A.D.A. criteria. Performed By: #### L 501.9985, L3300.3500, L500.4050 ####[facility] [address] [place], [address] Potassium [Moles/Vol] 4.1 mmol/L Normal 3.5-5.1 [facility] Comment on above: Order Comment: [facility] FROM [facility] JUST MRI Performed By: #### L 501.9985, L3300.3500, L500.4050 ####[facility] [address] [place], [address] Sodium [Moles/Vol] 138 mmol/L Normal 136-145 [facility] Comment on above: Order Comment: [facility] BW FROM HIM JUST MRI Performed By: #### L 501.9985, L3300.3500, L500.4050 ####[facility] [address] [place], [address] T PROT 7.3 g/dL Normal 6.4-8.2 [facility] Comment on above: Order Comment: [facility] BW FROM HIM JUST MRI Performed By: #### L 501.9985, L3300.3500, L500.4050 ####[facility] [address] [place], [place], [address] Urea nitrogen [Mass/Vol] 16 mg/dL Normal 7-18 [facility] Comment on above: Order Comment: PER B ERRY OFFICE-NO BW FROM HIM JUST MRI Performed By: #### L 501.9985, L3300.3500, L500.4050 ####[facility] [address] [place], [address] Hemoglobin A1con 05-18-2024 HbA1c (Bld) [Mass fraction] 5.6 % Normal 3.8-5.6 [facility] Comment on above: Order Comment: PER B ERRY OFFICE-NO BW FROM HIM JUST MRI Result Comment: Norm al < 5.7 % Prediabetic 5.7 - 6.4 % Diabetic >or= 6.5 % Please note range changes. Performed By: #### L 501.9985, L3300.3500, L500.4050 ####[facility] [address] [place], [address] Spine Cervical (Routine)on 0 05-18-2024 Spine Cervical (Routine) Normal [facility] MR/BMS.IMBon 05-17-2024 MR/BMS.IMB Normal [facility] Cerv Spine 2 or 3 Viewson Cerv Spine 2 or 3 Views Normal [facility] Orthopedic Visit Reporton Orthopedic Visit Report Normal [facility] Cerv Spine 2 or 3 Viewson Cerv Spine 2 or 3 Views Normal [facility] Kidney and Bladderon 024 Kidney and Bladder Normal [facility] ALLIED HEALTHon 04-14-2024 ALLIED HEALTH HNO ID: [id number] Author: SIOBHAN SAWYER CT Service: Radiology Author Type: Technologist Type: Allied Health Filed: 04/14/2024 15:53 Note Text: Radiology Service Progress Note PATIENT NAME: Aric Gonzalez DATE OF SERVICE: April 14, 2024 TIME: 3:53 PM PATIENT IDENTITY VERIFICATION COMPLETED USING TWO (2) IDENTIFIERS: Name and Date of confirmed by patient verbally and Name and Date of confirmed by identification band. FALL SCREENING: Has the patient had 2 falls in the last year or 1 fall with injury or currently using an Ambulatory Assistive Device (Walker, Cane, Wheelchair, Crutches, etc.)? Emergency Room Patient: Screened in ED PATIENT GENDER DATA: Male PATIENT RELEVANT IMPLANT DATA REVIEWED: Not Applicable PATIENT PRESENTS WITH AN IMPLANTABLE OR ATTACHED EQUIPMENT OPERATING ENGINEER: No RADIOLOGY DEPARTMENT: CT; Exam(s) Completed: Brain PERIPHERAL IV DATA: Not applicable SIGNED BY: ÁNGEL Edmond April 14, 2024 3:53 PM Normal [facility] Basic metabolic 2000 panelon 04-14-2024 Anion gap [Moles/Vol] 8 mmol/L Low 9-18 [facility] Comment on above: Order Comment: Speci men Type: BLOOD SPECIMEN Ordering Facility: [facility] Address: [address] [place] [address] Performed By: #### 1 9123-9, 09141-8, [id number] #### [facility] CLIA [id number] [address] [place] [address] [place] Calcium [Mass/Vol] 8.6 mg/dL Normal 8.5-10.2 [facility] Comment on above: Order Comment: Speci men Type: BLOOD SPECIMEN Ordering Facility: [facility] Address: [address] [place] [address] Performed By: #### 1 9123-9, 78733-5, [id number] #### [facility] CLIA [id number] [address] [place] [address] [place] Chloride [Moles/Vol] 103 mmol/L Normal 97-105 [facility] Comment on above: Order Comment: Speci men Type: BLOOD SPECIMEN Ordering Facility: [facility] Address: [address] [place] [address] Performed By: #### 1 9123-9, 89622-6, [id number] #### [facility] CLIA [id number] [address] [place] [address] [place] CO2 [Moles/Vol] 24 mmol/L Normal 22-30 [facility] Comment on above: Order Comment: Speci men Type: BLOOD SPECIMEN Ordering Facility: [facility] Address: [address] [place] [address] Performed By: #### 1 9123-9, 37325-8, [id number] #### [facility] CLIA [id number] [address] [place] [address] [place] Creatinine [Mass/Vol] 1.30 mg/dL High 0.73-1.22 [facility] Comment on above: Order Comment: Nadege horner Type: BLOOD SPECIMEN Ordering Facility: [facility] Address: [address] [place] [address] Performed By: #### 1 9123-9, 05586-4, [id number] #### [facility] CLIA [id number] [address] [place] [address] [place] Creatinine and Glomerular filtration rate.predicted panel (S/P/Bld) 56 mL/min/1.73m??? Low >=60 [facility] Comment on above: Order Comment: Nadege horner Type: BLOOD SPECIMEN Ordering Facility: [facility] Address: [address] [place] [address] Result Comment: Priscila mated Glomerular Filtration Rate (eGFR) is calculated using the 2020 CKD-EPI creatinine equation. This equation utilizes serum creatinine, sex, and age as parameters. The creatinine assay has traceable calibration to isotope dilution-mass spectrometry. Refer to KDIGO guidelines for clinical interpretation. In patients with unstable renal function, e.g. those with acute kidney injury, the eGFR may not accurately reflect actual GFR. Performed By: #### 1 9123-9, 62252-3, [id number] #### [facility] CLIA [id number] [address] [place] [address] [place] Glucose [Mass/Vol] 195 mg/dL High 74-99 [facility] Comment on above: Order Comment: Nadege horner Type: BLOOD SPECIMEN Ordering Facility: [facility] Address: [address] [place] [address] Result Comment: The [place] Diabetes Association (ADA) provides guidance for cutoff values for fasting glucose and random glucose. The ADA defines fasting as no caloric intake for at least 8 hours. Fasting plasma glucose results between 100 to 125 mg/dL indicate increased risk for diabetes (prediabetes). Fasting plasma glucose results greater than or equal to 126 mg/dL meet the criteria for diagnosis of diabetes. In the absence of unequivocal hyperglycemia, results should be confirmed by repeat testing. In a patient with classic symptoms of hyperglycemia or hyperglycemic crisis, random plasma glucose results greater than or equal to 200 mg/dL meet the criteria for diagnosis of diabetes. Reference: Standards of Medical Care in Diabetes 2016, [place] [employer] Association. Diabetes Care. 2016.39(Suppl 1). Performed By: #### 1 9123-9, 69298-0, [id number] #### [facility] CLIA [id number] [address] [place] [address] [place] [facility] Potassium [Moles/Vol] 4.1 mmol/L Normal 3.7-5.1 [facility] Comment on above: Order Comment: Nadege horner Type: BLOOD SPECIMEN Ordering Facility: [facility] Address: [address] [place] [address] Performed By: #### 1 9123-9, 85973-2, [id number] #### [facility] CLIA [id number] [address] STATES [facility] Sodium [Moles/Vol] 135 mmol/L Low 136-144 [facility] Comment on above: Order Comment: Nadege horner Type: BLOOD SPECIMEN Ordering Facility: [facility] Address: [address] [place] [address] Performed By: #### 1 9123-9, 17627-1, [id number] #### [facility] CLIA [id number] [address] [place] [facility] Urea nitrogen [Mass/Vol] 22 mg/dL Normal 9-24 [facility] Comment on above: Order Comment: Nadege horner Type: BLOOD SPECIMEN Ordering Facility: [facility] Address: [address] [place] [address] Performed By: #### 1 9123-9, 42325-9, [id number] #### [facility] CLIA [id number] [address] STATES OF [facility] CBC W Auto Differential pane l (Bld)on 04-14-2024 Basophils (Bld) [#/Vol] 0.00 10*3/uL Normal <0.11 [facility] Comment on above: Order Comment: Speci men Type: BLOOD SPECIMEN Ordering Facility: [facility] Address: [address] [place] [address] Performed By: #### 5 7021-8 #### [facility] CLIA [id number] [address] Basophils/100 WBC (Bld) 0.0 % Normal [facility] Comment on above: Order Comment: Speci men Type: BLOOD SPECIMEN Ordering Facility: [facility] Address: [address] [place] [address] Performed By: #### 5 7021-8 #### [facility] CLIA [id number] [address] OF [place] Differential cell count method Nom (Bld) Manual Normal [facility] Comment on above: Order Comment: Speci men Type: BLOOD SPECIMEN Ordering Facility: [facility] Address: [address] [place] [address] Performed By: #### 5 7021-8 #### [facility] CLIA [id number] [address] [place] [address] [place] Eosinophils (Bld) [#/Vol] 0.00 10*3/uL Normal <0.46 [facility] Comment on above: Order Comment: Speci men Type: BLOOD SPECIMEN Ordering Facility: [facility] Address: [address] [place] [address] Performed By: #### 5 7021-8 #### [facility] CLIA [id number] [address] Eosinophils/100 WBC (Bld) 0.0 % Normal [facility] Comment on above: Order Comment: Speci men Type: BLOOD SPECIMEN Ordering Facility: [facility] Address: [address] [place] [address] Performed By: #### 5 7021-8 #### [facility] CLIA [id number] [address] [place] Erythrocyte distribution width (RBC) [Ratio] 13.3 % Normal 11.5-15.0 [facility] Comment on above: Order Comment: Speci men Type: BLOOD SPECIMEN Ordering Facility: [facility] Address: [address] [place] [address] Performed By: #### 5 7021-8 #### [facility] CLIA [id number] [address] Hematocrit (Bld) [Volume fraction] 37.1 % Low 39.0-51.0 [facility] Comment on above: Order Comment: Speci men Type: BLOOD SPECIMEN Ordering Facility: [facility] Address: [address] [place] [address] Performed By: #### 5 7021-8 #### [facility] CLIA [id number] [address] [place] Hemoglobin (Bld) [Mass/Vol] 12.2 g/dL Low 13.0-17.0 [facility] Comment on above: Order Comment: Speci men Type: BLOOD SPECIMEN Ordering Facility: [facility] Address: [address] [place] [address] Performed By: #### 5 7021-8 #### [facility] CLIA [id number] [address] STATES OF [place] Lymphocytes (Bld) [#/Vol] 16.89 10*3/uL High 1.00-4.00 [facility] Comment on above: Order Comment: Speci men Type: BLOOD SPECIMEN Ordering Facility: [facility] Address: [address] [place] [address] Performed By: #### 5 7021-8 #### [facility] CLIA [id number] [address] Lymphocytes/100 WBC (Bld) 78.0 % Normal [facility] Comment on above: Order Comment: Speci men Type: BLOOD SPECIMEN Ordering Facility: [facility] Address: [address] [place] [address] Performed By: #### 5 7021-8 #### [facility] CLIA [id number] [address] MCH (RBC) [Entitic mass] 32.3 pg Normal 26.0-34.0 [facility] Comment on above: Order Comment: Speci men Type: BLOOD SPECIMEN Ordering Facility: [facility] Address: [address] [place] [address] Performed By: #### 5 7021-8 #### [facility] CLIA [id number] [address] STATES OF [place] MCHC (RBC) [Mass/Vol] 32.9 g/dL Normal 30.5-36.0 [facility] Comment on above: Order Comment: Speci men Type: BLOOD SPECIMEN Ordering Facility: [facility] Address: [address] [place] [address] Performed By: #### 5 7021-8 #### [facility] CLIA [id number] [address] STATES OF [place] MCV (RBC) [Entitic vol] 98.1 fL Normal 80.0-100.0 [facility] Comment on above: Order Comment: Speci men Type: BLOOD SPECIMEN Ordering Facility: [facility] Address: [address] [place] [address] Performed By: #### 5 7021-8 #### [facility] CLIA [id number] [address] STATES [place] Monocytes (Bld) [#/Vol] 0.00 10*3/uL Normal <0.87 [facility] Comment on above: Order Comment: Speci men Type: BLOOD SPECIMEN Ordering Facility: [facility] Address: [address] [place] [address] Performed By: #### 5 7021-8 #### [facility] CLIA [id number] [address] Monocytes/100 WBC (Bld) 0.0 % Normal [facility] Comment on above: Order Comment: Speci men Type: BLOOD SPECIMEN Ordering Facility: [facility] Address: [address] [place] [address] Performed By: #### 5 7021-8 #### [facility] CLIA [id number] [address] [place] Neutrophils (Bld) [#/Vol] 4.77 10*3/uL Normal 1.45-7.50 [facility] Comment on above: Order Comment: Speci men Type: BLOOD SPECIMEN Ordering Facility: [facility] Address: [address] [place] [address] Performed By: #### 5 7021-8 #### [facility] CLIA [id number] [address] Neutrophils/100 WBC (Bld) 22.0 % Normal [facility] Comment on above: Order Comment: Speci men Type: BLOOD SPECIMEN Ordering Facility: [facility] Address: [address] [place] [address] Performed By: #### 5 7021-8 #### [facility] CLIA [id number] [address] [place] [address] [place] Nucleated RBC (Bld) [#/Vol] 10*3/uL Normal <0.01 [facility] Comment on above: Order Comment: Speci men Type: BLOOD SPECIMEN Ordering Facility: [facility] Address: [address] [place] [address] Performed By: #### 5 7021-8 #### [facility] CLIA [id number] [address] [place] Nucleated RBC/100 WBC (Bld) [Ratio] 0.0 /100 WBC Normal [facility] Comment on above: Order Comment: Speci men Type: BLOOD SPECIMEN Ordering Facility: [facility] Address: [address] [place] [address] Performed By: #### 5 7021-8 #### [facility] CLIA [id number] [address] STATES [place] Platelet mean volume (Bld) [Entitic vol] 9.5 fL Normal 9.0-12.7 [facility] Comment on above: Order Comment: Speci men Type: BLOOD SPECIMEN Ordering Facility: [facility] Address: [address] [place] [address] Performed By: #### 5 7021-8 #### [facility] CLIA [id number] [address] [place] [address] [place] Platelets (Bld) [#/Vol] 86 10*3/uL Low 150-400 [facility] Comment on above: Order Comment: Speci men Type: BLOOD SPECIMEN Ordering Facility: [facility] Address: [address] [place] [address] Result Comment: No c lot detected. Performed By: #### 5 7021-8 #### [facility] CLIA [id number] [address] Platelets Estimate (Bld) [#/Vol] Decreased Normal [facility] Comment on above: Order Comment: Speci men Type: BLOOD SPECIMEN Ordering Facility: [facility] Address: [address] [place] [address] Performed By: #### 5 7021-8 #### [facility] CLIA [id number] [address] [place] RBC (Bld) [#/Vol] 3.78 10*6/uL Low 4.20-6.00 [facility] Comment on above: Order Comment: Speci men Type: BLOOD SPECIMEN Ordering Facility: [facility] Address: [address] [place] [address] Performed By: #### 5 7021-8 #### [facility] CLIA [id number] [address] RED CELL MORPH Reviewed: unremarkable Normal [facility] Comment on above: Order Comment: Speci men Type: BLOOD SPECIMEN Ordering Facility: [facility] Address: [address] [place] [address] Performed By: #### 5 7021-8 #### [facility] CLIA [id number] [address] WBC (Bld) [#/Vol] 21.66 10*3/uL High 3.70-11.00 [facility] Comment on above: Order Comment: Speci men Type: BLOOD SPECIMEN Ordering Facility: [facility] Address: [address] [place] [address] Performed By: #### 5 7021-8 #### [facility] CLIA [id number] [address] BRAIN WO IVCONon 04-14-[address] BRAIN WO IVCON * * *Final Report* * * DATE OF EXAM: Apr 14 2024 3:53PM [facility] 0504 - CT BRAIN WO IVCON / PROCEDURE REASON: Mental status change, unknown cause * * * * Physician Interpretation * * * * EXAMINATION: CT BRAIN WO IVCON CLINICAL HISTORY: Confusion. Mental status change. TECHNIQUE: Serial axial images without IV contrast were obtained from the vertex to the foramen magnum. MQ: CTBWO_3 CT Radiation dose: Integrated Dose-Length Product (DLP) for this visit = 842 mGy*cm CT Dose Reduction Employed: No dose reduction techniques were required COMPARISON: None. RESULT: Post-operative change: None. Acute change: No evidence of an acute infarct or other acute parenchymal process. Hemorrhage: No evidence of acute intracranial hemorrhage. ECASS hemorrhagic transformation score: Not Applicable Mass Lesion / Mass Effect: There is no evidence of an intracranial mass or extraaxial fluid collection. No significant mass effect. Chronic change: Extensive confluent foci of low attenuation are present in the supratentorial white matter which is nonspecific but likely represents extensive microvascular ischemia. Parenchyma: There is moderate generalized volume loss. The brain parenchyma is otherwise within normal limits for age. Ventricles: Ventricular enlargement concordant with the degree of parenchymal volume loss. Paranasal sinuses and skull base: The visualized paranasal sinuses are grossly clear. The skull base and imaged soft tissues are unremarkable. Localizer images: Partially visualized postoperative change in the cervical spine. IMPRESSION: NO EVIDENCE OF AN ACUTE INTRACRANIAL PROCESS Senescent changes [facility] Transcribe Date/Time: Apr 14 2024 3:56P Dictated by : DARIEN ZUNIGA MD This examination was interpreted and the report reviewed and electronically signed by: DARIEN ZUNIGA MD on Apr 14 2024 3:58PM EST [id number] Normal [facility] ECG COMPLETEon 04-14-2024 ECG COMPLETE Ventricular Rate : 7 6 BPM Atrial Rate : 76 BPM P-R Interval : 136 ms QRS Duration : 102 ms Q-T Interval : 416 ms QTC Calculation(Bazett) : 468 ms Calculated P [place] : 45 degrees Calculated R [place] : 39 degrees Calculated T [place] : 29 degrees NORMAL SINUS RHYTHM NORMAL ECG 1605 Confirmed by AVERY PHILLIPS DO ([id number]), graphic editor BRITTANIE BARBOUR (1944) on 04/15/2024 8:32:56 AM NAME : ARIC GONZALEZ PID : [id number] : 1945 Gender : Male Race : ORD : [id number] Procedure Date : Apr 14 2024 16:03:59 Edit Date : Apr 15 2024 08:32:59 Diagnosis: NORMAL SINUS RHYTHM NORMAL ECG 1605 Confirmed by AVERY PHILLIPS DO ([id number]), graphic editor BRITTANIE BARBOUR (1944) on 04/15/2024 8:32:56 AM Test Reason : Chest Pain Location : 1 : ER ED Overread By : AVERY PHILLIPS DO Edited By : BRITTANIE BARBOUR Referred By : , Acquired by : AMARJIT [facility] ED NOTEon 04-14-2024 ED NOTE HNO ID: [id number] Author: ANKITA OCASIO RN Service: ? Author Type: Registered Nurse Type: ED Notes Filed: 04/14/2024 19:56 Note Text: Pt d/c to home. Instructed to follow up with PCP. Advised to return to ED with worsening s/s or further concerns. Pt verbalized understanding of plan. Pt ambulated from department with a steady gait, without difficulty, [facility] IV removed intact prior to d/c. [facility] ED NOTE HNO ID: [id number] Author: ANKITA OCASIO RN Service: ? Author Type: Registered Nurse Type: ED Notes Filed: 04/14/2024 18:39 Note Text: Food provided to pt to eat. [facility] ED NOTE HNO ID: [id number] Author: ELAYNE WEISS RN Service: ? Author Type: Registered Nurse Type: ED Notes Filed: 04/14/2024 15:00 Note Text: Bed: ED-19 Expected date: Expected time: Means of arrival: [employer] Comments: [facility] ED PROV NOTEon 04-14-2024 ED PROV NOTE HNO ID: [id number] Author: AVERY PHILLIPS DO Service: Emergency Medicine Author Type: Physician Type: ED Provider Notes Filed: 04/14/2024 23:34 Note Text: ED Provider Note Patient Name: Aric Gonzalez : 1945 SERVICE DATE: 04/14/24 History No chief complaint on file. Aric Gonzalez is an 78-year-old male who is presenting to the emergency department with altered mental status. Patient was at the dermatology office getting a squamous cell carcinoma removed. During the procedure and shortly afterwards he seemed very confused. He complained of generalized weakness and significant fatigue. EMS was called and on their arrival his blood sugar was 62. A D10 bolus was started. His symptoms have began to improve though he continues to seem slightly confused conversationally. He has no focal deficits appreciated. Denies any pain at this time. 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 Low back pain Lower extremity aneurysm (HCC) 11/12/2021 Nodule of left lung 02/28/2015 NON-ALLERGIC RHINITIS NOS Obesity Occlusion and stenosis of carotid artery without mention of cerebral infarction Synovitis and tenosynovitis, unspecified Unspecified age-related cataract Unspecified macular degeneration Unspecified urinary incontinence PAST SURGICAL HISTORY Procedure Laterality Date CABG, ARTERIAL, FOUR+ 92 COLONOSCOPY FLX DX W/COLLJ SPEC WHEN PFRMD 12/04/2006 Colonoscopy ENDOVAS AAA REPR W/3-P PART 11/07/2016 ESOPHAGOGASTRODUODENOSC OPY TRANSORAL DIAGNOSTIC 10/14/13 EGD INCISION AND DRAINAGE PILONIDAL CYST COMPLICATED 1974 PAST SURGICAL HISTORY OF 1984 VEIN STRIPPING REM LESIO TRUNK,ARM,LEG 1.1 -2.0CM 11/04/09 Exc. ruptured kathy cyst left upper shoulder REM LESIO TRUNK,ARM,LEG 1.1 -2.0CM 10/12/11 Exc. kathy cyst left lower back RPR UMBILICAL HRNA 5 YRS/> REDUCIBLE 09-19-16 TONSILLECTOMY PRIMARY/SECONDARY Tonsillectomy FAMILY HISTORY Problem Relation Age of Onset Cancer Mother Diabetes Father Heart Sister Diabetes Sister No Known Problems Sister Social History Tobacco Use Smoking status: Former Packs/day: 1.00 Years: 44.00 Additional pack years: 0.00 Total pack years: 44.00 Types: Cigarettes Quit date: 06/20/2007 Years since quittin.8 Smokeless tobacco: Never Vaping Use Vaping Use: Never used Substance and Sexual Activity Alcohol use: Yes Comment: RARELY Drug use: No Sexual activity: Yes Partners: Female ALLERGIES Allergen Reactions Carvedilol Unknown Doxycycline Intolerance Diarrhea Penicillins Hives Review of Systems Constitutional: Positive for fatigue. Negative for chills and fever. HENT: Negative for congestion, nosebleeds and sore throat. Eyes: Negative for pain, discharge and redness. Respiratory: Negative for cough and shortness of breath. Gastrointestinal: Negative for abdominal pain, nausea and vomiting. Genitourinary: Negative for dysuria and hematuria. Musculoskeletal: Negative for back pain. Skin: Negative for pallor and rash. Neurological: Positive for weakness (generalized). Negative for headaches. Psychiatric/Behavioral: Positive for confusion. Physical Exam Vitals BP Pulse Temp Temp src Resp SpO2 Weight Height -- -- -- -- -- -- -- -- Physical Exam Vitals and nursing note reviewed. Constitutional: General: He is not in acute distress. Appearance: He is well-developed. HENT: Head: Normocephalic and atraumatic. Right Ear: External ear normal. Left Ear: External ear normal. Eyes: General: No scleral icterus. Right eye: No discharge. Left eye: No discharge. Conjunctiva/sclera: Conjunctivae normal. Pupils: Pupils are equal, round, and reactive to light. Cardiovascular: Rate and Rhythm: Normal rate and regular rhythm. Heart sounds: No murmur heard. No friction rub. No gallop. Pulmonary: Effort: Pulmonary effort is normal. No respiratory distress. Breath sounds: Normal breath sounds. No wheezing or rales. Chest: Chest wall: No tenderness. Abdominal: General: Bowel sounds are normal. There is no distension. Palpations: Abdomen is soft. There is no mass. Tenderness: There is no abdominal tenderness. There is no guarding or rebound. Musculoskeletal: General: No tenderness or deformity. Normal range of motion. Cervical back: Normal range of motion and neck supple. Lymphadenopathy: Cervical: No cervical adenopathy. Skin: General: Skin is (more content not included)... Normal [facility] Gas and Carbon monoxide pane l (BldV)on 04-14-2024 BASE DEFICIT, VENOUS -1 mmol/L Normal -2-0 [facility] Comment on above: Order Comment: Speci men Type: VENOUS BLOOD SPECIMEN Ordering Facility: [facility] Address: [address] [place] [address] Performed By: #### 2 4344-4 #### [facility] CLIA [id number] [facility] [address] [address] Carboxyhemoglobin (BldV) [Mass fraction] 1.0 % Normal 0.0-2.0 [facility] Comment on above: Order Comment: Speci men Type: VENOUS BLOOD SPECIMEN Ordering Facility: [facility] Address: [address] [place] [address] Result Comment: Carb oxyhemoglobin Reference Range for Smokers: 2.0-8.0% Performed By: #### 2 4344-4 #### [facility] CLIA [id number] [facility] [address] [address] CO2 (BldV) [Partial pressure] 42 mm[Hg] Normal 42-55 [facility] Comment on above: Order Comment: Speci men Type: VENOUS BLOOD SPECIMEN Ordering Facility: [facility] Address: [address] [place] [address] Performed By: #### 2 4344-4 #### [facility] CLIA [id number] [facility] [address] [address] CO2 adjusted to patient's actual temperature (BldV) [Partial pressure] Normal [facility] Comment on above: Order Comment: Speci men Type: VENOUS BLOOD SPECIMEN Ordering Facility: [facility] Address: [address] [place] [address] Performed By: #### 2 4344-4 #### [facility] CLIA [id number] [facility] [address] [address] HCO3 (Bld) [Moles/Vol] 24 mmol/L Normal 24-28 [facility] Comment on above: Order Comment: Speci men Type: VENOUS BLOOD SPECIMEN Ordering Facility: [facility] Address: [address] [place] [address] Performed By: #### 2 4344-4 #### [facility] CLIA [id number] [facility] [address] [address] Hemoglobin (Bld) [Mass/Vol] 12.5 g/dL Low 13.0-17.0 [facility] Comment on above: Order Comment: Speci men Type: VENOUS BLOOD SPECIMEN Ordering Facility: [facility] Address: [address] [place] [address] Performed By: #### 2 4344-4 #### [facility] CLIA [id number] [facility] [address] [address] Lactate [Moles/Vol] 1.2 mmol/L Normal 0.5-2.2 [facility] Comment on above: Order Comment: Speci men Type: VENOUS BLOOD SPECIMEN Ordering Facility: [facility] Address: [address] [place] [address] Performed By: #### 2 4344-4 #### [facility] CLIA [id number] [facility] [address] [address] Methemoglobin (Bld) [Mass fraction] % Normal 0.0-1.5 [facility] Comment on above: Order Comment: Speci men Type: VENOUS BLOOD SPECIMEN Ordering Facility: [facility] Address: [address] [place] [address] Performed By: #### 2 4344-4 #### [facility] CLIA [id number] [facility] [address] [address] O2 THERAPY RA=Room Air Normal [facility] Comment on above: Order Comment: Speci men Type: VENOUS BLOOD SPECIMEN Ordering Facility: [facility] Address: [address] [place] [address] Performed By: #### 2 4344-4 #### [facility] CLIA [id number] [facility] [address] [address] Oxygen (BldV) [Partial pressure] 40 mm[Hg] Normal 35-45 [facility] Comment on above: Order Comment: Speci men Type: VENOUS BLOOD SPECIMEN Ordering Facility: [facility] Address: [address] [place] [address] Performed By: #### 2 4344-4 #### [facility] CLIA [id number] [facility] [address] [address] Oxygen adjusted to patient's actual temperature (BldV) [Partial pressure] Normal [facility] Comment on above: Order Comment: Speci men Type: VENOUS BLOOD SPECIMEN Ordering Facility: [facility] Address: [address] [place] [address] Performed By: #### 2 4344-4 #### [facility] CLIA [id number] [facility] [address] [address] Oxygen saturation in Venous blood 70 % Normal 60-85 [facility] Comment on above: Order Comment: Speci men Type: VENOUS BLOOD SPECIMEN Ordering Facility: [facility] Address: [address] [place] [address] Performed By: #### 2 4344-4 #### [facility] CLIA [id number] [facility] [address] [address] Oxyhemoglobin (BldV) [Mass fraction] 69 % Normal 60-85 [facility] Comment on above: Order Comment: Speci men Type: VENOUS BLOOD SPECIMEN Ordering Facility: [facility] Address: [address] [place] [address] Performed By: #### 2 4344-4 #### [facility] CLIA [id number] [facility] [address] [address] pH (BldV) 7.37 [pH] Normal 7.32-7.42 [facility] Comment on above: Order Comment: Speci men Type: VENOUS BLOOD SPECIMEN Ordering Facility: [facility] Address: [address] [place] [address] Performed By: #### 2 4344-4 #### [facility] CLIA [id number] [facility] [address] [address] pH adjusted to patient's actual temperature (BldV) Normal [facility] Comment on above: Order Comment: Nadege horner Type: VENOUS BLOOD SPECIMEN Ordering Facility: [facility] Address: [address] [place] [address] Performed By: #### 2 4344-4 #### [facility] CLIA [id number] [facility] [address] [address] Potassium [Moles/Vol] 3.8 mmol/L Normal 3.5-5.0 [facility] Comment on above: Order Comment: Nadege horner Type: VENOUS BLOOD SPECIMEN Ordering Facility: [facility] Address: [address] [place] [address] Performed By: #### 2 4344-4 #### [facility] CLIA [id number] [facility] [address] [address] HIGH SENSITIVITY TROPONIN T (INITIAL)on 04-14-2024 Troponin T.cardiac High sensitivity method [Mass/Vol] 37 ng/L High <[address] [place] [address] Comment on above: Order Comment: Nadege horner Type: BLOOD SPECIMEN Ordering Facility: [facility] Address: [address] [place] [address] Result Comment: When assessing risk for acute coronary syndromes: In patients undergoing blood draw greater than or equal to 2 hours from symptom onset, with history of very low to moderate risk and non-ischemic ECG, an initial hs-Troponin T less than 12 ng/L AND a 1 hour delta hs-Troponin T less than 3 ng/L should be considered very low risk for 30 day MACE. Performed By: #### 1 9123-9, 86414-8, [id number] #### [facility] CLIA [id number] [address] [place] [address] [facility] HIGH SENSITIVITY TROPONIN T (SECOND)on 04-14-2024 Troponin T.cardiac High sensitivity method [Mass/Vol] 36 ng/L High [address] Comment on above: Order Comment: Nadege horner Type: BLOOD SPECIMEN Ordering Facility: [facility] Address: [address] [place] [address] Result Comment: When assessing risk for acute coronary syndromes: In patients undergoing blood draw greater than or equal to 2 hours from symptom onset, with history of very low to moderate risk and non-ischemic ECG, an initial hs-Troponin T less than 12 ng/L AND a 1 hour delta hs-Troponin T less than 3 ng/L should be considered very low risk for 30 day MACE. Performed By: #### L [id number] #### [facility] CLIA [id number] [address] HIGH SENSITIVITY TROPONIN T (THIRD) 3 HRS AFTER INITIALon 04-14-2024 Troponin T.cardiac High sensitivity method [Mass/Vol] 35 ng/L High <12 [facility] Comment on above: Order Comment: Nadege horner Type: BLOOD SPECIMEN Ordering Facility: [facility] Address: [address] [place] [address] Result Comment: When assessing risk for acute coronary syndromes: In patients undergoing blood draw greater than or equal to 2 hours from symptom onset, with history of very low to moderate risk and non-ischemic ECG, an initial hs-Troponin T less than 12 ng/L AND a 1 hour delta hs-Troponin T less than 3 ng/L should be considered very low risk for 30 day MACE. Performed By: #### L [id number] #### [facility] CLIA [id number] [address] Magnesium SerPl-mCncon 04-14 Magnesium [Mass/Vol] 1.7 mg/dL Normal 1.7-2.3 [facility] Comment on above: Order Comment: Nadege horner Type: BLOOD SPECIMEN Ordering Facility: [facility] Address: [address] [place] [address] Performed By: #### 1 9123-9, 52877-3, [id number] #### [facility] CLIA [id number] [address] [place] Urinalysis complete panel (U )on 04-14-2024 Bilirubin Ql (U) Negative Normal Negative [facility] Comment on above: Order Comment: Nadege horner Type: BLOOD SPECIMEN Ordering Facility: [facility] Address: [address] [place] [address] Performed By: #### 1 9123, 44856-6, [id number] #### [facility] CLIA [id number] [address] [place] Clarity (Unsp spec) Slightly Cloudy Abnormal Clear [facility] Comment on above: Order Comment: Speci men Type: BLOOD SPECIMEN Ordering Facility: [facility] Address: [address] [place] [address] Performed By: #### 1 9123-07, 31790-9, [id number] #### [facility] CLIA [id number] [address] OF [place] Color (U) Yellow Normal Yellow [facility] Comment on above: Order Comment: Speci men Type: BLOOD SPECIMEN Ordering Facility: [facility] Address: [address] [place] [address] Performed By: #### 1 9123-07, 24950-2, [id number] #### [facility] CLIA [id number] [address] Epithelial cells LM.HPF (Urine sed) [#/Area] Moderate Normal [facility] Comment on above: Order Comment: Speci men Type: BLOOD SPECIMEN Ordering Facility: [facility] Address: [address] [place] [address] Performed By: #### 1 9123-07, 26058-5, [id number] #### [facility] CLIA [id number] [address] [place] Glucose Test strip (U) [Mass/Vol] Negative Normal Negative [facility] Comment on above: Order Comment: Speci men Type: BLOOD SPECIMEN Ordering Facility: [facility] Address: [address] [place] [address] Performed By: #### 1 9123-07, 61697-5, [id number] #### [facility] CLIA [id number] [address] Hemoglobin Ql (U) 2+ Abnormal Negative [facility] Comment on above: Order Comment: Speci men Type: BLOOD SPECIMEN Ordering Facility: [facility] Address: [address] [place] [address] Performed By: #### 1 9123-07, 60056-0, [id number] #### [facility] CLIA [id number] [address] Ketones Ql (U) Negative Normal Negative [facility] Comment on above: Order Comment: Speci men Type: BLOOD SPECIMEN Ordering Facility: [facility] Address: [address] [place] [address] Performed By: #### 1 9123-9, 39311-2, [id number] #### [facility] CLIA [id number] [address] [place] Leukocyte esterase Test strip Ql (U) Negative Normal Negative [facility] Comment on above: Order Comment: Speci men Type: BLOOD SPECIMEN Ordering Facility: [facility] Address: [address] [place] [address] Performed By: #### 1 91239, 18648-4, [id number] #### [facility] CLIA [id number] [address] Nitrite Ql (U) Negative Normal Negative [facility] Comment on above: Order Comment: Speci men Type: BLOOD SPECIMEN Ordering Facility: [facility] Address: [address] [place] [address] Performed By: #### 1 91239, 26264-6, [id number] #### [facility] CLIA [id number] [address] [place] pH (U) 6.0 [pH] Normal 5.0-8.0 [facility] Comment on above: Order Comment: Speci men Type: BLOOD SPECIMEN Ordering Facility: [facility] Address: [address] [place] [address] Performed By: #### 1 9123-9, 54301-0, [id number] #### [facility] CLIA [id number] [address] [place] Protein (U) [Mass/Vol] 1+ Abnormal Negative [facility] Comment on above: Order Comment: Speci men Type: BLOOD SPECIMEN Ordering Facility: [facility] Address: [address] [place] [address] Performed By: #### 1 23-9, 34088-5, [id number] #### [facility] CLIA [id number] [address] RBC LM.HPF (Urine sed) [#/Area] 0-3 /HPF Normal 0-3 /HPF [facility] Comment on above: Order Comment: Speci men Type: BLOOD SPECIMEN Ordering Facility: [facility] Address: [address] [place] [address] Performed By: #### 1 9123-9, 41764-5, [id number] #### [facility] CLIA [id number] [address] [place] Specific gravity (U) [Rel density] >=1.030 High 1.005-1.030 [facility] Comment on above: Order Comment: Speci men Type: BLOOD SPECIMEN Ordering Facility: [facility] Address: [address] [place] [address] Performed By: #### 1 9123-9, 31657-5, [id number] #### [facility] CLIA [id number] [address] Urobilinogen Ql (U) 0.2 EU/dL Normal 0.2-1.0 EU/dL [facility] Comment on above: Order Comment: Speci men Type: BLOOD SPECIMEN Ordering Facility: [facility] Address: [address] [place] [address] Performed By: #### 1 9123-9, 09529-7, [id number] #### [facility] CLIA [id number] [address] WBC LM.HPF (Urine sed) [#/Area] 0-5 /HPF Normal 0-5 /HPF [facility] Comment on above: Order Comment: Speci men Type: BLOOD SPECIMEN Ordering Facility: [facility] Address: [address] [place] [address] Performed By: #### 1 9123-9, 97430-1, [id number] #### [facility] CLIA [id number] [address] Basic Metabolic Profile (BMP )on 04-12-2024 BUN/CRE 16.8 RATIO Normal 10-20 [facility] Comment on above: Performed By: #### L 500.2500 ####[facility] [address] [place], [address] CA,Total 9.4 mg/dL Normal 8.5-10.1 [facility] Comment on above: Performed By: #### L 500.2500 ####[facility] [address] [place], [address] Chloride [Moles/Vol] 111 mmol/L High 98-107 [facility] Comment on above: Performed By: #### L 500.2500 ####[facility] [address] [place], [address] CO2 [Moles/Vol] 25.0 mmol/L Normal 21.0-32.0 [facility] Comment on above: Performed By: #### L 500.2500 ####[facility] [address] [place], [address] Creatinine [Mass/Vol] 1.43 mg/dL High 0.70-1.30 [facility] Comment on above: Result Comment: The validity of the calculated GFR GFRAA in patients over70 years has not been determined. Clinical correlation isessential. Performed By: #### L 500.2500 ####[facility] [address] [place], [address] EST GFR - AA 61 mL/min Normal >60 [facility] Comment on above: Result Comment: Afri can [place]cu[place] GFR Calc Performed By: #### L 500.2500 ####[facility] [address] [place], [address] GAP 5 Normal 5-15 [facility] Comment on above: Performed By: #### L 500.2500 ####[facility] [address] [place], [address] GFR/1.73 sq M.predicted among non-blacks MDRD (S/P/Bld) [Vol rate/Area] 51 mL/min/{1.73_m2} Low >60 [facility] Comment on above: Result Comment: Non- GFR Calc Performed By: #### L 500.2500 ####[facility] [address] [place], [address] Glucose [Mass/Vol] 143 mg/dL High 74-106 [facility] Comment on above: Result Comment: Fast ing Glucose result greater than or equal to 126 mg/dLsuggests DIABETES MELLITUS per A.D.A. criteria. Performed By: #### L 500.2500 ####[facility] [address] [place], [address] Potassium [Moles/Vol] 4.0 mmol/L Normal 3.5-5.1 [facility] Comment on above: Performed By: #### L 500.2500 ####[facility] [address] [place], [address] Sodium [Moles/Vol] 141 mmol/L Normal 136-145 [facility] Comment on above: Performed By: #### L 500.2500 ####[facility] [address] [place], [address] Urea nitrogen [Mass/Vol] 24 mg/dL High 7-18 [facility] Comment on above: Performed By: #### L 500.2500 ####[facility] [address] [place], [address] Basic Metabolic Profile (BMP )on 03-31-2024 BUN/CRE 18.5 RATIO Normal 10-20 [facility] Comment on above: Performed By: #### L 501.5200, L500.2500 ####[facility] [address] [place], [address] CA,Total 8.7 mg/dL Normal 8.5-10.1 [facility] Comment on above: Performed By: #### L 501.5200, L500.2500 ####[facility] [address] [place], [address] Chloride [Moles/Vol] 106 mmol/L Normal 98-107 [facility] Comment on above: Performed By: #### L 501.5200, L500.2500 ####[facility] [address] [place], [address] CO2 [Moles/Vol] 26.0 mmol/L Normal 21.0-32.0 [facility] Comment on above: Performed By: #### L 501.5200, L500.2500 ####[facility] [address] [place], [address] Creatinine [Mass/Vol] 1.35 mg/dL High 0.70-1.30 [facility] Comment on above: Result Comment: The validity of the calculated GFR GFRAA in patients over70 years has not been determined. Clinical correlation isessential. Performed By: #### L 501.5200, L500.2500 ####[facility] [address] [place], [address] EST GFR - AA 65 mL/min Normal >60 [facility] Comment on above: Result Comment: Afri can [place] GFR Calc Performed By: #### L 501.5200, L500.2500 ####[facility] [address] [place], [address] GAP 5 Normal 5-15 [facility] Comment on above: Performed By: #### L 501.5200, L500.2500 ####[facility] [address] [place], [address] GFR/1.73 sq M.predicted among non-blacks MDRD (S/P/Bld) [Vol rate/Area] 54 mL/min/{1.73_m2} Low >60 [facility] Comment on above: Result Comment: Non- GFR Calc Performed By: #### L 501.5200, L500.2500 ####[facility] [address] [place], [address] Glucose [Mass/Vol] 143 mg/dL High 74-106 [facility] Comment on above: Result Comment: Fast ing Glucose result greater than or equal to 126 mg/dLsuggests DIABETES MELLITUS per A.D.A. criteria. Performed By: #### L 501.5200, L500.2500 ####[facility] [address] [place], [address] Potassium [Moles/Vol] 4.2 mmol/L Normal 3.5-5.1 [facility] Comment on above: Performed By: #### L 501.5200, L500.2500 ####[facility] [address] [place], [address] Sodium [Moles/Vol] 137 mmol/L Normal 136-145 [facility] Comment on above: Performed By: #### L 501.5200, L500.2500 ####[facility] [address] [place], [address] Urea nitrogen [Mass/Vol] 25 mg/dL High 7-18 [facility] Comment on above: Performed By: #### L 501.5200, L500.2500 ####[facility] [address] [place], [address] Magnesiumon 03-31-2024 Magnesium [Mass/Vol] 1.9 mg/dL Normal 1.6-2.6 [facility] Comment on above: Performed By: #### L 501.5200, L500.2500 ####[facility] [address] [place], [address] PT D/C Summary (1)on 024 PT D/C Summary (1) Normal [facility] CT UROGRAMon 01-19-2024 CT UROGRAM ORIGINAL EXAMINATION: CT UROGRAM 01/16/2024 2:04 pm TECHNIQUE: CT of the abdomen and pelvis was performed before and after the administration of intravenous contrast as per CT urogram protocol. Multiplanar reformatted images as well as MIP urogram images are provided for review. Dose modulation, iterative reconstruction, and/or weight based adjustment of the mA/kV was utilized to reduce the radiation dose to as low as reasonably achievable. COMPARISON: None. HISTORY: ORDERING SYSTEM PROVIDED HISTORY: Reason for Exam: hematuria benign prostatic hyperplasia, Urinary incontinence FINDINGS: Moderate degenerative changes are noted in the spine. Mild degenerative anterolisthesis is present at L3-4 and L2-3. 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 Mild hip osteoarthritis is also evident. The lung bases show no contributory finding. There is a 3.8 cm lesion at the posterior margin of the right hepatic lobe, partially exophytic. No other liver lesions seen. Spleen, adrenal glands and pancreas are unremarkable. A stent grafted abdominal aortic aneurysm is present, measuring 4.9 cm in size. 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 No adenopathy, free air or free fluid is visible. Bilateral fat containing inguinal hernias are noted. Mild scattered colonic diverticulosis is present, greatest on the left. No evidence for diverticulitis. No other GI tract abnormality seen. No evidence for nephrolithiasis or stone disease. Nephrograms are symmetric, and there are no enhancing renal lesions seen. No pelvicaliceal or ureteral abnormality is visible. Mild bladder wall thickening and trabeculation is evident. Prostate enlargement/BPH indents the base of the bladder. A focal bladder lesion is not identified. There may be a tiny diverticulum at the dome of the bladder anteriorly. No additional contributory finding seen. IMPRESSION: 1. Prostate enlargement/BPH, indenting the base of the bladder. Bladder wall thickening and trabeculation is compatible with an element of outlet obstruction. 2. No potential cause for hematuria identified. 3. Right lobe liver lesion, indeterminate. Consider dedicated MRI liver for characterization when feasible. 4. Diverticulosis without diverticulitis. 5. Bilateral fat containing inguinal hernias. 6. Stent grafted abdominal aortic aneurysm and bilateral common iliac aneurysms. Interpreted by: Avery Fortune MD Preliminary Report By: Avery Fortune MD Electronically signed By Avery Fortune MD Dictated Date: 01/19/2024 8:44:32 AM Prelim Date: 01/19/2024 8:49:46 AM Sign Date: 01/19/2024 8:49:46 AM Ordering Provider: MIRIAN SUMNER [facility] ([place]) UAon 12-15-2023 Color (U) Yellow Normal [facility] ([place]) Comment on above: Order Comment: pcn a llergies Performed By: #### U A, UAMIC #### [place] [id number] Glucose (U) [Mass/Vol] Negative Normal Negative [facility] ([place]) Comment on above: Order Comment: pcn a llergies Performed By: #### U A, UAMIC #### [place] [address] Ketones Ql (U) Negative Normal Neg-Trace [facility] ([place]) Comment on above: Order Comment: pcn a llergies Performed By: #### U A, UAMIC #### [place] [address] UA Appear Clear Normal Clear [facility] ([place]) Comment on above: Order Comment: pcn a llergies Performed By: #### U A, UAMIC #### [place] [address] UA Blood Moderate Abnormal Neg-Trace [facility] ([place]) Comment on above: Order Comment: pcn a llergies Performed By: #### U A, UAMIC #### [place] [address] UA Leuk Est Negative Normal Negative [facility] ([place]) Comment on above: Order Comment: pcn a llergies Performed By: #### U A, UAMIC #### [address] [address] UA Nitrite Negative Normal Negative [facility] ([place]) Comment on above: Order Comment: pcn a llergies Performed By: #### U A, UAMIC #### [place] [id number] UA pH 5.5 Normal 5.0 - 8.0 [facility] ([place]) Comment on above: Order Comment: pcn a llergies Performed By: #### U A, UAMIC #### [address] [address] UA Protein Negative Normal Negative [facility] ([place]) Comment on above: Order Comment: pcn a llergies Performed By: #### U A, UAMIC #### [address] [address] UA Spec Grav 1.025 Normal 1.006-1.029 [facility] ([place]) Comment on above: Order Comment: pcn a llergies Performed By: #### U A, UAMIC #### [address] [address] UA Specimen Type Clean Catch Normal [facility] ([place]) Comment on above: Order Comment: pcn a llergies Performed By: #### U A, UAMIC #### [place] [address] UA Urobilinogen 0.2 E.U./dL Normal 0.2-1.0 [facility] ([place]) Comment on above: Order Comment: pcn a llergies Performed By: #### U A, UAMIC #### [place] [address] Urobilinogen (U) [Mass/Vol] Negative Normal Neg-Trace [facility] ([place]) Comment on above: Order Comment: pcn a llergies Performed By: #### U A, UAMIC #### [place] [address] UAMICon 12-15-2023 UA Amorphus 1+ /hpf Normal [facility] ([place]) Comment on above: Order Comment: pcn a llergies Performed By: #### U A, UAMIC #### [place] [address] UA Hyal Cast 0-2 Abnormal [facility] ([place]) Comment on above: Order Comment: pcn a llergies Performed By: #### U A, UAMIC #### [place] [address] UA Mucous 2+ /hpf Normal [facility] ([place]) Comment on above: Order Comment: pcn a llergies Performed By: #### U A, UAMIC #### [place] [address] UA RBC 5-10 Abnormal 0-2 [facility] ([place]) Comment on above: Order Comment: pcn a llergies Performed By: #### U A, UAMIC #### [place] [address] UA Squam Epithelial 3-5 Normal 0-20 [facility] ([place]) Comment on above: Order Comment: pcn a llergies Performed By: #### U A, UAMIC #### [place] [address] UA WBC 0-2 Normal 0-5 [facility] ([place]) Comment on above: Order Comment: pcn a llergies Performed By: #### U A, UAMIC #### [place] [address] PSAon 10-23-2023 Prostate Specific Antigen 0.84 ng/mL Normal 0.02-4.00 [facility] ([place]) Comment on above: Result Comment: Sincere ent results determined by assays using different manufacturers for methods may not be comparable. Performed By: #### P SA #### [place] [address] [address] CHEST WO IVCONon 10-15-20 [facility] Absolute lymphocyte countOrd ered By: Sylvester Javier on 10-08-2023 Lymphocytes Auto (Unsp spec) [#/Vol] 18.92 10*3/uL 0.83-4.51 [facility] Basophil percentageOrdered B y: Sylvester Javier on 10-08-2023 Basophils/100 WBC (Bld) 0.3 % 0-1 [facility] Bilirubin [Mass/Vol] 0.80 mg/dL 0.20-1.00 [facility] Comment on above: For patients on eltr ombopag therapy, use of Dimension Cassatt TBIL is not recommended. Chloride [Moles/Vol] 105 mmol/L 98-107 [facility] Cholesterol [Mass/Vol] 145 mg/dL <200 [facility] Comment on above: <200 mg/dL Desirable 200-240 mg/dL Borderline >240 mg/dL High Risk Eosinophils/100 WBC (Bld) 1.2 % 0-5 [facility] Glucose [Mass/Vol] 102 mg/dL 74-106 [facility] Comment on above: Fasting Glucose resu lt from 100 to 125 mg/dL suggests IMPAIRED HOMEOSTASIS per A.D.A. criteria. Neutrophils (Bld) [#/Vol] 3.2 10*3/uL 2.0-7.7 [facility] Neutrophils/100 WBC (Bld) 13.4 % 47-70 [facility] Potassium [Moles/Vol] 4.2 mmol/L 3.5-5.1 [facility] Protein [Mass/Vol] 7.5 g/dL 6.4-8.2 [facility] Sodium [Moles/Vol] 140 mmol/L 136-145 [facility] Triglyceride [Mass/Vol] 66 mg/dL <199 [facility] Comment on above: The drugs N-Acetylcy steine and Metamizole may falsely depress this assay.Serum Triglycerides Reference Interval Normal <150 mg/dL Borderline high 150 - 199 mg/dL High 200 - 499 mg/dL Very High > or = 500 mg/dL WBC (Bld) [#/Vol] 23.4 10*3/uL 4.4-11.0 [facility] Blood erythrocytes count (nu mber/volume)Ordered By: Sylvester Javier on 10-08-2023 RBC (Bld) [#/Vol] 4.37 10*6/uL 4.6-6.2 [facility] Blood hemoglobin measurement (mass/volume)Ordered By: Sylvester Javier on 10-08-2023 Hemoglobin (Bld) [Mass/Vol] 13.9 g/dL 13.0-16.5 [facility] Blood lymphocytes/100 leukoc ytesOrdered By: Sylvester Javier on 10-08-2023 Lymphocytes/100 WBC (Bld) 80.9 % 19-41 [facility] Blood manual differential co mment interpretation (narrative result)Ordered By: Sylvester Javier on 10-08-2023 Manual differential comment Hamzah (Bld) [Interp] SCANNED [facility] Comment on above: LYMPHOCYTOSIS NOTED Blood monocytes/100 leukocyt esOrdered By: Sylvester Javier on 10-08-2023 Monocytes/100 WBC (Bld) 4.1 % 0-10 [facility] Blood platelet adequacy dete ction by light microscopyOrdered By: Sylvester Javier on 10-08-2023 Platelets LM Ql (Bld) SLT [facility] Blood platelet mean volumeOr dered By: Sylvester Javier on 10-08-2023 Platelet mean volume (Bld) [Entitic vol] 10.4 fL 6.2-12.0 [facility] Determination of erythrocyte mean corpuscular volume (MCV)Ordered By: Sylvester Javier on 10-08-2023 MCV (RBC) [Entitic vol] 98.4 fL 80-94 [facility] Hematocrit Auto (Bld) [Volum e fraction]Ordered By: Sylvester Javier on 10-08-2023 Hematocrit (Bld) [Volume fraction] 43.0 % 40-54 [facility] Laboratory - Chemistry and C hemistry - challengeOrdered By: Sylvester Javier on 10-08-2023 ALP [Catalytic activity/Vol] 84 U/L 45-117 [facility] ALT [Catalytic activity/Vol] 23 U/L 16-61 [facility] CO2 [Moles/Vol] 26.0 mmol/L 21.0-32.0 [facility] Globulin (S) [Mass/Vol] 3.5 g/dL 2.2-4.2 [facility] Urea nitrogen/Creatinine [Mass ratio] 20.0 mg/mg 10-20 [facility] - Hematology and Cell countsOrdered By: Sylvester Javier on 10-08-2023 Erythrocyte distribution width (RBC) [Entitic vol] 47.9 fL 35.1-43.9 [facility] Erythrocyte distribution width (RBC) [Ratio] 13.3 % 11.6-14.6 [facility] Immature granulocytes/100 WBC (Bld) 0.100 % 0.0-0.9 [facility] Comment on above: IG% - Immature Granu locytes (promyelocytes, myelocytes and metamyelocytes) > 1% indicates that a LEFT SHIFT is Present. MCH (RBC) [Entitic mass] 31.8 pg 27.0-32.0 [facility] Nucleated RBC/100 WBC (Bld) [Ratio] 0 % 0-5 [facility] MCHC Auto (RBC) [Mass/Vol]Or dered By: Sylvester Javier on 10-08-2023 MCHC (RBC) [Mass/Vol] 32.3 g/dL 32-36 [facility] No Panel InformationOrdered By: Sylvester Javier on 10-08-2023 Estimated GFR (MDRD) Amer 68 mL/min >60 [facility] Comment on above: GFR Calc Estimated GFR (MDRD) Non-Af Amer 56 mL/min >60 [facility] Comment on above: Non- GFR Calc Prostate Specific Antigen Total 1.09 ng/mL 0.0-4.0 [facility] Comment on above: This test was perfor med using the TPSA assay method for the[employer] chemistry system. Values obtained with differentassay methods cannot be used interchangably.When changing PSA assays in the course of monitoring apatient, additional sequential testing should be carriedout to confirm baseline values. Thyroid Stimulating Hormone (TSH) 3.30 uIU/mL 0.358-3.74 [facility] Vitamin D 25-Hydroxy 42.6 ng/mL [facility] Comment on above: Vitamin D 25(OH) Sta tus Range Deficiency <20 ng/mL (50nmol/L) Insufficiency 20 - 30 ng/mL (50 - 75 nmol/L) Sufficiency 30 - 100 ng/mL (75 - 250 nmol/L) Toxicity >100 ng/mL (>250 nmol/L) Platelets bldOrdered By: Rosa Elena Javier on 10-08-2023 Platelets (Bld) [#/Vol] 94 10*3/uL 150-450 [facility] Serum or plasma albumin maximiliano urement (mass/volume)Ordered By: Sylvester Javier on 10-08-2023 Albumin [Mass/Vol] 4.0 g/dL 3.2-5.0 [facility] Serum or plasma albumin/glob ulin mass ratioOrdered By: Sylvester Javier on 10-08-2023 Albumin/Globulin [Mass ratio] 1.1 {ratio} 0.9-2.4 [facility] Serum or plasma calcium maximiliano urement (mass/volume)Ordered By: Sylvester Javier on 10-08-2023 Calcium [Mass/Vol] 8.6 mg/dL 8.5-10.1 [facility] Serum or plasma cholesterol in HDL measurement (mass/volume)Ordered By: Sylvester Javier on 10-08-2023 Cholesterol in HDL [Mass/Vol] 47 mg/dL >40 [facility] Comment on above: The drugs N-Acetylcy steine and Metamizole may falsely depress this assay. Reference Range HDL <40 mg/dL Low HDL Cholesterol HDL >or= 60 mg/dL High HDL Cholesterol Serum or plasma cholesterol in VLDL measurement (mass/volume)Ordered By: Sylvester Javier on 10-08-2023 Cholesterol in VLDL [Mass/Vol] 13 mg/dL 5-40 [facility] Serum or plasma creatinine m easurement (mass/volume)Ordered By: Sylvester Javier on 10-08-2023 Creatinine [Mass/Vol] 1.30 mg/dL 0.70-1.30 [facility] Comment on above: The validity of the calculated GFR & GFRAA in patients over 70 years has not been determined. Clinical correlation is essential. Serum or plasma low density lipoprotein (LDL) cholesterol measurement (mass/volume)Ordered By: Sylvester Javier on 10-08-2023 Cholesterol in LDL [Mass/Vol] 85 mg/dL 0-130 [facility] Serum or plasma urea nitroge n measurement (mass/volume)Ordered By: Sylvester Javier on 10-08-2023 Urea nitrogen [Mass/Vol] 26 mg/dL 7-18 [facility] Thin prep Papanicolaou smear with manual screeningOrdered By: Sylvester Javier on 10-08-2023 Thin prep Papanicolaou smear with manual screening 17 U/L 15-37 [facility] Thin prep Papanicolaou smear with manual screening 9 5-15 [facility] Absolute lymphocyte countOrd ered By: Dr. Javier on 02-26-2023 Lymphocytes Auto (Unsp spec) [#/Vol] 18.98 10*3/uL 0.83-4.51 [facility] Basophil percentageOrdered B y: Dr. Javier on 02-26-2023 Basophils/100 WBC (Bld) 0.2 % 0-1 [facility] Bilirubin [Mass/Vol] 0.90 mg/dL 0.20-1.00 [facility] Comment on above: For patients on eltr ombopag therapy, use of Dimension Cassatt TBIL is not recommended. Chloride [Moles/Vol] 108 mmol/L 98-107 [facility] Cholesterol [Mass/Vol] 199 mg/dL <200 [facility] Comment on above: <200 mg/dL Desirable 200-240 mg/dL Borderline >240 mg/dL High Risk Eosinophils/100 WBC (Bld) 0.7 % 0-5 [facility] Glucose [Mass/Vol] 121 mg/dL 74-106 [facility] Comment on above: Fasting Glucose resu lt from 100 to 125 mg/dL suggests IMPAIRED HOMEOSTASIS per A.D.A. criteria. Neutrophils (Bld) [#/Vol] 3.8 10*3/uL 2.0-7.7 [facility] Neutrophils/100 WBC (Bld) 16.1 % 47-70 [facility] Potassium [Moles/Vol] 3.8 mmol/L 3.5-5.1 [facility] Protein [Mass/Vol] 7.7 g/dL 6.4-8.2 [facility] Sodium [Moles/Vol] 138 mmol/L 136-145 [facility] Triglyceride [Mass/Vol] 208 mg/dL <199 [facility] Comment on above: The drugs N-Acetylcy steine and Metamizole may falsely depress this assay.Serum Triglycerides Reference Interval Normal <150 mg/dL Borderline high 150 - 199 mg/dL High 200 - 499 mg/dL Very High > or = 500 mg/dL WBC (Bld) [#/Vol] 23.5 10*3/uL 4.4-11.0 [facility] Blood erythrocytes count (nu mber/volume)Ordered By: Dr. Javier on 02-26-2023 RBC (Bld) [#/Vol] 4.25 10*6/uL 4.6-6.2 [facility] Blood hemoglobin measurement (mass/volume)Ordered By: Dr. Javier on 04-05-2023 Hemoglobin (Bld) [Mass/Vol] 13.7 g/dL 13.0-16.5 [facility] Blood lymphocytes/100 leukoc ytesOrdered By: Dr. Javier on 02-26-2023 Lymphocytes/100 WBC (Bld) 80.8 % 19-41 [facility] Blood manual differential co mment interpretation (narrative result)Ordered By: Dr. Javier on 02-26-2023 Manual differential comment Hamzah (Bld) [Interp] SCANNED [facility] Comment on above: LYMPHOCYTOSIS Blood monocytes/100 leukocyt esOrdered By: [address] Javier on 02-26-2023 Monocytes/100 WBC (Bld) 2.0 % 0-10 [facility] Blood platelet mean volumeOr dered By: Dr. Javier on 02-26-2023 Platelet mean volume (Bld) [Entitic vol] 9.9 fL 6.2-12.0 [facility] Determination of erythrocyte mean corpuscular volume (MCV)Ordered By: Dr. Javier on 02-26-2023 MCV (RBC) [Entitic vol] 96.9 fL 80-94 [facility] Hematocrit Auto (Bld) [Volum e fraction]Ordered By: Dr. Javier on 02-26-2023 Hematocrit (Bld) [Volume fraction] 41.2 % 40-54 [facility] Laboratory - Chemistry and C hemistry - challengeOrdered By: Dr. Javier on 02-26-2023 ALP [Catalytic activity/Vol] 76 U/L 45-117 [facility] ALT [Catalytic activity/Vol] 28 U/L 16-61 [facility] CO2 [Moles/Vol] 24.0 mmol/L 21.0-32.0 [facility] Globulin (S) [Mass/Vol] 3.8 g/dL 2.2-4.2 [facility] Urea nitrogen/Creatinine [Mass ratio] 21.8 mg/mg 10-20 [facility] Laboratory - Hematology and Cell countsOrdered By: Dr. Javier on 02-26-2023 Erythrocyte distribution width (RBC) [Entitic vol] 47.3 fL 35.1-43.9 [facility] Erythrocyte distribution width (RBC) [Ratio] 13.2 % 11.6-14.6 [facility] Immature granulocytes/100 WBC (Bld) 0.200 % 0.0-0.9 [facility] Comment on above: IG% - Immature Granu locytes (promyelocytes, myelocytes and metamyelocytes) > 1% indicates that a LEFT SHIFT is Present. MCH (RBC) [Entitic mass] 32.2 pg 27.0-32.0 [facility] Nucleated RBC/100 WBC (Bld) [Ratio] 0 % 0-5 [facility] MCHC Auto (RBC) [Mass/Vol]Or dered By: Dr. Javier on 02-26-2023 MCHC (RBC) [Mass/Vol] 33.3 g/dL 32-36 [facility] No Panel InformationOrdered By: Dr. Javier on 02-26-2023 Estimated GFR (MDRD) Amer 76 mL/min >60 [facility] Comment on above: GFR Calc Estimated GFR (MDRD) Non-Af Amer 63 mL/min >60 [facility] Comment on above: Non- GFR Calc Prostate Specific Antigen Screen 1.53 ng/mL 0.00-4.00 [facility] Comment on above: This test was perfor med using the TPSA assay method for the[employer] chemistry system. Values obtained with differentassay methods cannot be used interchangably.When changing PSA assays in the course of monitoring apatient, additional sequential testing should be carriedout to confirm baseline values. Reactive Lymphocytes 1+ [facility] Thyroid Stimulating Hormone (TSH) 1.71 uIU/mL 0.358-3.74 [facility] Vitamin D 25-Hydroxy 36.6 ng/mL [facility] Comment on above: Vitamin D 25(OH) Sta tus Range Deficiency <20 ng/mL (50nmol/L) Insufficiency 20 - 30 ng/mL (50 - 75 nmol/L) Sufficiency 30 - 100 ng/mL (75 - 250 nmol/L) Toxicity >100 ng/mL (>250 nmol/L) Platelets bldOrdered By: Dr. Javier on 02-26-2023 Platelets (Bld) [#/Vol] 108 10*3/uL 150-450 [facility] Serum or plasma albumin maximiliano urement (mass/volume)Ordered By: Dr. Javier on 02-26-2023 Albumin [Mass/Vol] 3.9 g/dL 3.2-5.0 [facility] Serum or plasma albumin/glob ulin mass ratioOrdered By: Dr. Javier on 02-26-2023 Albumin/Globulin [Mass ratio] 1.0 {ratio} 0.9-2.4 [facility] Serum or plasma calcium maximiliano urement (mass/volume)Ordered By: Dr. Javier on 02-26-2023 Calcium [Mass/Vol] 8.6 mg/dL 8.5-10.1 [facility] Serum or plasma cholesterol in HDL measurement (mass/volume)Ordered By: Dr. Javier on 02-26-2023 Cholesterol in HDL [Mass/Vol] 39 mg/dL >40 [facility] Comment on above: The drugs N-Acetylcy steine and Metamizole may falsely depress this assay. Reference Range HDL <40 mg/dL Low HDL Cholesterol HDL >or= 60 mg/dL High HDL Cholesterol Serum or plasma cholesterol in VLDL measurement (mass/volume)Ordered By: Dr. Javier on 02-26-2023 Cholesterol in VLDL [Mass/Vol] 42 mg/dL 5-40 [facility] Serum or plasma creatinine m easurement (mass/volume)Ordered By: Dr. Javier on 02-26-2023 Creatinine [Mass/Vol] 1.19 mg/dL 0.70-1.30 [facility] Comment on above: The validity of the calculated GFR & GFRAA in patients over 70 years has not been determined. Clinical correlation is essential. Serum or plasma low density lipoprotein (LDL) cholesterol measurement (mass/volume)Ordered By: Dr. Javier on 02-26-2023 Cholesterol in LDL [Mass/Vol] 118 mg/dL 0-130 [facility] Serum or plasma urea nitroge n measurement (mass/volume)Ordered By: Dr. Javier on 02-26-2023 Urea nitrogen [Mass/Vol] 26 mg/dL 7-18 [facility] Thin prep Papanicolaou smear with manual screeningOrdered By: Dr. Javier on 02-26-2023 Thin prep Papanicolaou smear with manual screening 24 U/L 15-37 [facility] Thin prep Papanicolaou smear with manual screening 6 5-15 [facility] Basophil percentageOrdered B y: Tawny Avalos on 11-07-2022 Cholesterol [Mass/Vol] 219 mg/dL <200 [facility] Comment on above: <200 mg/dL Desirable 200-240 mg/dL Borderline >240 mg/dL High Risk Triglyceride [Mass/Vol] 179 mg/dL <199 [facility] Comment on above: The drugs N-Acetylcy steine and Metamizole may falsely depress this assay.Serum Triglycerides Reference Interval Normal <150 mg/dL Borderline high 150 - 199 mg/dL High 200 - 499 mg/dL Very High > or = 500 mg/dL Serum or plasma cholesterol in HDL measurement (mass/volume)Ordered By: Tawny Avalos on 11-07-2022 Cholesterol in HDL [Mass/Vol] 39 mg/dL >40 [facility] Comment on above: The drugs N-Acetylcy steine and Metamizole may falsely depress this assay. Reference Range HDL <40 mg/dL Low HDL Cholesterol HDL >or= 60 mg/dL High HDL Cholesterol Serum or plasma cholesterol in VLDL measurement (mass/volume)Ordered By: Tawny Avalos on 11-07-2022 Cholesterol in VLDL [Mass/Vol] 36 mg/dL 5-40 [facility] Serum or plasma low density lipoprotein (LDL) cholesterol measurement (mass/volume)Ordered By: Tawny Avalos on 11-07-2022 Cholesterol in LDL [Mass/Vol] 144 mg/dL 0-130 [facility] 09-25-2022 JAVIER Telephone (ADRIANA) ARIC GONZALEZ ([id number]) 1945 M Date Time Provider Department 09/25/22 BLESSING FARRIS During your visit today, we recorded the following information about you: Blessing Farris APRN.CNP 09/25/2022 4:23 PM Signed I called patient to review results of CT Chest. LLL opacity is stable and commented to be likely area of focal atelectasis. We will follow up on it in 1 year to ensure stability. No other new concerning nodules. Patient in agreement with the plan. All questions answered to his satisfaction. Blessing Farris APRN.[employer] Allergies As of Date: 09/25/2022 Noted Allergy Reaction DOXYCYCLINE 12/11/2016 5 - Intolerance Comments: Diarrhea PENICILLINS 07/18/2005 4 - Hives Date Reviewed: 05/15/2022 Reviewed by: Sarah Hwang LPN - Fully Assessed Reason for Visit: Results [95] Primary Visit Diagnosis:Lung nodule [R91.1] Prescriptions as of 09/25/2022 - pantoprazole DR (PROTONIX) 40 mg tablet Take 40 mg by mouth once daily. - isosorbide mononitrate ER (IMDUR) 60 mg 24 hr tablet Take 1 tablet by mouth once daily. - tamsulosin (FLOMAX) 0.4 mg Take 0.4 mg by mouth once daily. - lisinopril-hydroCHLOROt hiazide (PRINZIDE,ZESTORETIC) 20-12.5 mg per tablet Take 1 tablet by mouth once daily. - tamsulosin (FLOMAX) 0.4 mg Take 1 capsule by mouth daily at bedtime. - cyanocobalamin, vitamin B-12, (VITAMIN B-12 ORAL) Take 1 tablet by mouth once daily. - atorvastatin (LIPITOR) 20 mg tablet Take 1 tablet by mouth once daily. - iv contrast (will be provided with radiology test) CT Cardiac - No IV access, insert saline lock prior to the sedation, infusion, injection for imaging exam. Discontinue saline lock post exam. If Pt. has a central line or IVAD, may access for administration according to line specific nursing protocol. Once exam is complete flush line and de-access according to line specific nursing protocol in the CT contrast administration guidelines link. - aspirin, enteric coated (ASPIRIN, ENTERIC COATED) 81 mg EC tablet Take 81 mg by mouth once daily. - clopidogrel (PLAVIX) 75 mg tablet Take 75 mg by mouth once daily. - iv contrast (will be provided with radiology test) CT Cardiac - No IV access, insert saline lock prior to the sedation, infusion, injection for imaging exam. Discontinue saline lock post exam. If Pt. has a central line or IVAD, may access for administration according to line specific nursing protocol. Once exam is complete flush line and de-access according to line specific nursing protocol in the CT contrast administration guidelines link. - iv contrast (will be provided with radiology test) CT Cardiac - No IV access, insert saline lock prior to the sedation, infusion, injection for imaging exam. Discontinue saline lock post exam. If Pt. has a central line or IVAD, may access for administration according to line specific nursing protocol. Once exam is complete flush line and de-access according to line specific nursing protocol in the CT contrast administration guidelines link. - CALCIUM CARBONATE (TUMS 500 ORAL) Take by mouth as needed. Problem List As Of Date 09/25/2022 Noted Resolved Hyperlipidemia LDL goal <100 [E78.5] 07/18/2005 ASHD (arteriosclerotic heart disease) [I25.10] 07/18/2005 BENIGN HYPERTENSION [I10] 07/18/2005 Tobacco use disorder [F17.200] 07/18/2005 02/27/2016 Acute peptic ulcer, unspecified site, without m* 02/16/2015 Recurrent major depressive disorder (HCC) [F33.*06/24/2007 02/24/2017 Other seborrheic keratosis [L82.1] 06/24/2007 02/27/2016 Sebaceous cyst [L72.3] 11/04/2009 02/27/2016 AAA (abdominal aortic aneurysm) without rupture*08/24/2013 Liver lesion [K76.9] 08/24/2013 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] 04/29/2016 Erectile dysfunction [N52.9] 04/29/2016 Umbilical hernia without obstruction or gangren*09/10/2016 02/24/2017 Spondylosis of lumbar region without myelopathy*03/25/2018 Obesity, Class II, BMI 35-39.9 [E66.9] 08/04/2019 DDD (degenerative disc disease), cervical [M50.*03/15/2020 Weakness of right lower extremity [R29.898] 07/20/2020 Leg pain, bilateral [M79.604, M79.605] 08/17/2020 Bilateral carotid artery stenosis [I65.23] 11/12/2021 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 Degenerative disease of the lumbar spine. Health Care Aide: PSCDaysi Transcribe Date/Time: May 15 2022 2:25P Dictated by : MARY SHI MD This examination was interpreted and the report reviewed and electronically signed by: MARY SHI MD on May 15 2022 2:27PM EST [email or web address] E_DIVISION OF RADIOLOGY * * *Final Report* * * DATE OF EXAM: May 15 2022 2:21PM WOX [id number] - XR LUMBAR 3V AP/LAT/L5-S1 / PROCEDURE REASON: Acute midline low back pain without sciatica * * * * Physician Interpretation * * * * X-ray lumbosacral spine, AP, lateral and L5-S1 views Indication: Acute midline low back pain Comparison: None Counting reference: Lumbosacral junction. For the purposes of this report, L5S1 is considered the last lumbar type disc space and L4-5 is considered the level of the iliac crest. No acute fracture or destructive osseous lesion. Grade 1 anterolisthesis of L2 on L3 and L3 on L4. There is degenerative disc disease at multiple levels of the lumbar spine with endplate sclerosis, intervertebral disc space narrowing and osteophyte formation. Sacroiliac joints appear normal. Vascular stent is noted. [email or web address] E_DIVISION OF RADIOLOGY Provider, [facility] - 05/15/2022 * * *Final Report* * * DATE OF EXAM: May 15 2022 2:21PM WOX [id number] - XR LUMBAR 3V AP/LAT/L5-S1 / PROCEDURE REASON: Acute midline low back pain without sciatica * * * * Physician Interpretation * * * * X-ray lumbosacral spine, AP, lateral and L5-S1 views Indication: Acute midline low back pain Comparison: None Counting reference: Lumbosacral junction. For the purposes of this report, L5S1 is considered the last lumbar type disc space and L4-5 is considered the level of the iliac crest. No acute fracture or destructive osseous lesion. Grade 1 anterolisthesis of L2 on L3 and L3 on L4. There is degenerative disc disease at multiple levels of the lumbar spine with endplate sclerosis, intervertebral disc space narrowing and osteophyte formation. Sacroiliac joints appear normal. Vascular stent is noted. IMPRESSION IMPRESSION: No acute fracture. Degenerative disease of the lumbar spine. Health Care Aide: GRISEL Transcribe Date/Time: May 15 2022 2:25P Dictated by : MARY SHI MD This examination was interpreted and the report reviewed and electronically signed by: MARY SHI MD on May 15 2022 2:27PM [facility] Radiology Study observation (narrative) [facility] XR Lumbar spine 3 ViewsOrder ed By: [facility] Provider on 05-15-2022 [facility] CARDIAC CATH NURSING LOGOrde red By: [employer] on 05-25-2021 [facility] Work Phone: [facility] 12-14-2019 [facility] Telephone FLA (IGGYF W) ARIC GONZALEZ ([id number]) 1945 M Date Time Provider Department 12/14/19 CATRACHITO EDEN During your visit today, we recorded the following information about you: Luz Murphy, RN 12/14/2019 4:44 PM Signed Called and spoke with patient, patient will cancel appointment with Dr. Eden because he lives far away. Patient requesting a recommendation for spine surgeon in [place]. Will ask Dr. Cantu. Luz Murphy RN 12/15/2019 1:36 PM Signed Called and spoke with patient, informed him with information to see a Neurosurgeon locally. Dr. Janes Kaufman [phone] Allergies As of Date: 12/14/2019 Noted Allergy Reaction DOXYCYCLINE 12/11/2016 5 - Intolerance Comments: Diarrhea PENICILLINS 07/18/2005 4 - Hives Date Reviewed: 08/02/2019 Reviewed by: Anne (Victor M) VICTOR M Barber - Fully Assessed Reason for Visit: Future Appointment [256] Prescriptions as of 12/14/2019 Sig: ATORVASTATIN 20 MG TABLET Take 1 tablet by mouth once d* IV CONTRAST (RADIOLOGY PROCED* CT Cardiac - No IV access, in* IV CONTRAST (RADIOLOGY PROCED* CT Cardiac - No IV access, in* LISINOPRIL 20 MG-HYDROCHLOROT* Take 1 tablet by mouth once d* ASPIRIN 325 MG TABLET Take 325 mg by mouth once rizwan* TUMS 500 ORAL Take by mouth as needed. Problem List As Of Date 12/14/2019 Noted Resolved Hyperlipidemia LDL goal <100 [E78.5] 07/18/2005 Coronary atherosclerosis [I25.10] 07/18/2005 BENIGN HYPERTENSION [I10] 07/18/2005 Tobacco use disorder [F17.200] 07/18/2005 02/27/2016 Acute peptic ulcer, unspecified site, without m* 02/16/2015 Recurrent major depressive disorder (HCC) [F33.*06/24/2007 02/24/2017 Other seborrheic keratosis [L82.1] 06/24/2007 02/27/2016 Sebaceous cyst [L72.3] 11/04/2009 02/27/2016 AAA (abdominal aortic aneurysm) [I71.4] 08/24/2013 More... Liver lesion [K76.9] 08/24/2013 More... 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] 04/29/2016 Erectile dysfunction [N52.9] 04/29/2016 Umbilical hernia without obstruction or gangren*09/10/2016 02/24/2017 Spondylosis of lumbar region without myelopathy*03/25/2018 Obesity, Class II, BMI 35-39.9 [E66.9] 08/04/2019 Encounter Status:Closed by LUZ LAMAR on 12/15/19 [facility] CNKALENon 07-28-2018 CNOV Office Visit (AKURFL) ARIC MARTIN ([id number]) 1945 MDate Time Provider Department07/28/18 1:30 PM JOSE HERRERA During your visit today, we recorded the following information about you: Blood pressure Weight Height 142/88 123.4 kg 1.854 Rey Herrera DO, MBA 07/28/2018 2:45 PM Signed??[facility] [place] [facility] INSTITUTELOCATION: [address] [place], [place] [address]YSTOSCOPY PROCEDURE NOTE:Aric Gonzalez is a 73 year old male who presents with hematuria gross forcystoscopy.Pt ID verified with patient: YesProcedure verified with patient: YesProcedure confirmed with physician and business support: YesSign InHistory and Physical Exam reviewed and is unchanged. .Informed Consent Discussed: Yes. Risks, benefits, alternatives and personneldiscussed with patient who consents to proceed.Sign in Communication: CompletedTime Out: Team Confirms the Correct Patient, Correct Procedure; Cystoscopy,Correct Site and Site Marking, Correct Position (if applicable).Affirmation of Time Out: YesSign Out: Sign Out Discussion: CompletedPhysician: Jose Herrera DO, MBAA urinalysis was performed revealing no evidence of infection.The benefits, risks, alternatives of the cystoscopy procedure and personnelwere discussed with the patient. The verbal consent was obtained and thepatient agrees to proceed.Procedure: The patient was placed on the procedure table in the supine positionand prepped and draped in the usual sterile fashion. 2% Lidocaine Jelly wasplaced per urethra as an anesthetic in the standard fashion. Once adequatelocal anesthesia was achieved, the tip of the flexible cystoscope was carefullyplaced into the urethra under direct visual guidance. The scope was negotiatedthrough the pendulous urethra to the level of the bulbar urethra with noevidence of stricture. The verumontanum came into view and the scope wasnegotiated through the prostatic urethra which showed evidence of tri lobarocclusive disease. The bladder was entered and careful alvarado endoscopy wascarried out. The posterior, superior and lateral barreto and dome of the bladderwere all well visualized and the scope was retroflexed upon itself. Thefindings were consistent with no evidence of bladder mucosal pathology.Intravesical median lobe.At the conclusion of the procedure, the flexible cystoscope was removedatraumatically. The patient tolerated the procedure without complications.Patient was given standard post-procedure instructions, and was directed tocomplete the course of oral antibiotics and increase oral fluid intake asdirected.ASSESSMENT/P ALISON:Gross hematuriaBPH with LUTSUrine cytology negativeCystoscopy negative for tumors, has median lobe intravesical prostate withvaricesConsider proscar if neededPSA 2012 - 0.80He has had multiple CT scan for his AAA - wishes to hold on CT urogram at thistime. He will obtain it if he has recurrent gross hematuriaF/U with Shayne Herrera DO, MBAReferring Provider: CHATO LIEBERMAN III [[id number]]Allergies As of Date: 07/28/2018 Noted Allergy ReactionDOXYCYCLINE 12/11/2016 5 - Intolerance Comments: DiarrheaPENICILLINS 07/18/2005 4 - HivesDate Reviewed: 07/28/2018Reviewed by: Jose Herrera - Fully AssessedReason for Visit: Procedure [88]Primary Visit Diagnosis:Gross hematuria [R31.0] Other Visit Diagnosis:Combined arterial insufficiency and corporo-venous occlusive erectile dysfunction [N52.03]Order(s):[EXPIR ED] sulfamethoxazole-trimet hoprim 800-160 mg 1 tablet (BACTRIM DS,SEPTRA DS)Disp: Rfl:Prescriptions as of 07/28/2018 Sig: TAMSULOSIN 0.4 MG CAPSULE Take 1 capsule by mouth daily* LISINOPRIL 20 MG-HYDROCHLOROT* Take 1 tablet by mouth once d* ATORVASTATIN 20 MG TABLET Take 1 tablet by mouth once d* OMEPRAZOLE 20 MG CAPSULE,YANET* Take 20 mg by mouth as needed. ASPIRIN 325 MG TABLET Take 325 mg by mouth once rizwan* TUMS 500 ORAL Take by mouth.Problem List As Of Date 07/28/2018 Noted Resolved Hyperlipidemia LDL goal <100 [E78.5] INVALID FOR* Coronary atherosclerosis [I25.10] INVALID FOR* BENIGN HYPERTENSION [I10] INVALID FOR* Tobacco use disorder [F17.200] INVALID FOR*02/27/2016 Acute peptic ulcer, unspecified site, without m* 02/16/2015 Recurrent major depressive disorder (HCC) [F33.*INVALID FOR*02/24/2017 Other seborrheic keratosis [L82.1] INVALID FOR*02/27/2016 Sebaceous cyst [L72.3] INVALID FOR*02/27/2016 AAA (abdominal aortic aneurysm) [I71.4] INVALID FOR* More... Liver lesion [K76.9] INVALID FOR* More... 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 -> 4TIMES IN PAST MONTH NEED TO URINATE AGAIN WITHIN 2 HRS OF LAST EMPTY? -> 2TIMES IN PAST MONTH YOU HAVE STOPPED AND STARTED URINE FLOW? -> 4TIMES IN THE PAST MONTH YOU FOUND IT DIFFICULT TO POSTPONE URINATING? -> 2TIMES IN THE PAST MONTH YOU HAVE HAD A WEAK URINARY STREAM? -> 4TIMES IN PAST MONTH YOU HAVE HAD TO PUSH OR STRAIN TO URINATE? -> 3TIMES IN PAST MONTH YOU GET UP TO URINATE FROM SLEEP UNTIL AWAKE? -> 3HOW WOULD YOU FEEL IF YOU HAD TO LIVE WITH YOUR URINARY CONDITION IT IS NOW? *WHAT IT THE TOTAL AUA SCORE? -> 26 Questionna neha: [facility]OA SEXUAL HEALTH INVENTORY FOR MENHow do you rate your confidence that you could get and keep an erection? -> 2 - LowWhen you had erections with sexual stimuation, how often were your erectionshard enough for penetration (entering your partner)? -> 2 - A Few Times (Much Less Than Half The Time)During sexual intercouse, how often were you able to maintain your erectionafter you had penetrated (entered) your partner? -> 2 - A Few Times (Much Less Than Half The Time)During sexual intercourse, how difficult was it to maintain your erection tocompletion of intercourse? -> 3 - DifficultWhen you attempted sexual intercourse, how often was it satisfactory for you? -> 4 - M- o- s- t T- i- m- e- s (- M- u- c- h M- o- r- e T- h- a- n H- a- l- f T- h- e T- i- m- e)Total Score -> 13Letter TextEncounter Number: [id number] Status:Closed by JOSE HERRERA on 07/28/18 [facility] PROCEDUREon 07-28-2018 Protein mass conc HNO ID: [id number]: Jose Dior: (none)Author Type: PhysicianType: ProceduresFiled: 07/28/2018 2:45 PMNote Text:??[facility]TR[facility] K[facility] INSTITUTELOCATION: [address] [place] [id number] PROCEDURE NOTE:Aric Gonzalez is a 73 year old male who presents with hematuria grossfor cystoscopy.Pt ID verified with patient: YesProcedure verified with patient: YesProcedure confirmed with physician and business support: YesSign InHistory and Physical Exam reviewed and is unchanged. .Informed Consent Discussed: Yes. Risks, benefits, alternatives andpersonnel discussed with patient who consents to proceed.Sign in Communication: CompletedTime Out: Team Confirms the Correct Patient, Correct Procedure;Cystoscopy, Correct Site and Site Marking, Correct Position (ifapplicable).Affirmat ion of Time Out: YesSign Out: Sign Out Discussion: CompletedPhysician: Jose Herrera DO, MBAA urinalysis was performed revealing no evidence of infection.The benefits, risks, alternatives of the cystoscopy procedure andpersonnel were discussed with the patient. The verbal consent was obtainedand the patient agrees to proceed.Procedure: The patient was placed on the procedure table in the supineposition and prepped and draped in the usual sterile fashion. 2% LidocaineJelly was placed per urethra as an anesthetic in the standard fashion.Once adequate local anesthesia was achieved, the tip of the flexiblecystoscope was carefully placed into the urethra under direct visualguidance. The scope was negotiated through the pendulous urethra to thelevel of the bulbar urethra with no evidence of stricture. Theverumontanum came into view and the scope was negotiated through theprostatic urethra which showed evidence of tri lobar occlusive disease.The bladder was entered and careful alvarado endoscopy was carried out. Theposterior, superior and lateral barreto and dome of the bladder were allwell visualized and the scope was retroflexed upon itself. The findingswere consistent with no evidence of bladder mucosal pathology.Intravesical median lobe.At the conclusion of the procedure, the flexible cystoscope was removedatraumatically. The patient tolerated the procedure without complications.Patient was given standard post-procedure instructions, and was directedto complete the course of oral antibiotics and increase oral fluid intakeas directed.ASSESSMENT/FADI N:Gross hematuriaBPH with LUTSUrine cytology negativeCystoscopy negative for tumors, has median lobe intravesical prostate withvaricesConsider proscar if neededPSA 2012 - 0.80He has had multiple CT scan for his AAA - wishes to hold on CT urogram atthis time. He will obtain it if he has recurrent gross hematuriaF/U with Shayne Herrera DO, IRMA [facility] Vital Signs Date Time Vital Sign Value Performing Clinician [facility] 06-02-2025 08:53-0400 Body height 184.[address] Sylvester Javier MD Work Phone: [facility] 06-02-2025 08:53-0400 Body mass index (BMI) [Ratio] 34.7 kg/m2 Dr. Sylvester Javier MD Work Phone: [facility] 06-02-2025 08:53-0400 Body temperature 98.6 [degF] Dr. Sylvester Javier MD Work Phone: [facility] 06-02-2025 08:53-0400 Body weight 118.[address] Sylvester Javier MD Work Phone: [facility] 06-02-2025 08:53-0400 Diastolic blood pressure 78 mm[Hg] Dr. Sylvester Javier MD Work Phone: [facility] 06-02-2025 08:53-0400 Heart rate 83 /min Dr. Sylvester Javier MD Work Phone: [facility] 06-02-2025 08:53-0400 Respiratory rate 16 /min Dr. Sylvester Javier MD Work Phone: [facility] 06-02-2025 08:53-0400 SaO2% (BldA) [Mass fraction] 93 % Dr. Sylvester Javier MD Work Phone: [facility] 06-02-2025 08:53-0400 Systolic blood pressure 120 mm[Hg] Dr. Sylvester Javier MD Work Phone: [facility] 05-23-2025 15:02-0400 Body height 186.7 cm Inocencio Rainey MD Work Phone: [facility] 05-23-2025 15:02-0400 Body mass index (BMI) [Ratio] 34.29 kg/m2 Inocencio Rainey MD Work Phone: [facility] 05-23-2025 15:02-0400 Body temperature 98.49 [degF] Inocencio Rainey MD Work Phone: [facility] 05-23-2025 15:02-0400 Body weight 119.52 kg Inocencio Rainey MD Work Phone: [facility] 05-23-2025 15:02-0400 Diastolic blood pressure 77 mm[Hg] Inocencio Rainey MD Work Phone: [facility] 05-23-2025 15:02-0400 Heart rate 81 /min Inocencio Rainey MD Work Phone: [facility] 05-23-2025 15:02-0400 SaO2% (BldA) [Mass fraction] 94 % Inocencio Rainey MD Work Phone: [facility] 05-23-2025 15:02-0400 Systolic blood pressure 126 mm[Hg] Inocencio Rainey MD Work Phone: [facility] 03-07-2025 09:59-0400 Body mass index (BMI) [Ratio] 34.4 kg/m2 Dr. Sylvester Javier MD Work Phone: [facility] 03-07-2025 09:59-0400 Body temperature 98 [degF] Dr. Sylvester Javier MD Work Phone: [facility] 03-07-2025 09:59-0400 Body weight 117.[address] Sylvester Javier MD Work Phone: [facility] 03-07-2025 09:59-0400 Diastolic blood pressure 87 mm[Hg] Dr. Sylvester Javier MD Work Phone: [facility] 03-07-2025 09:59-0400 Heart rate 82 /min Dr. Sylvester Javier MD Work Phone: [facility] 03-07-2025 09:59-0400 SaO2% (BldA) [Mass fraction] 94 % Dr. Sylvester Javier MD Work Phone: [facility] 03-07-2025 09:59-0400 Systolic blood pressure 140 mm[Hg] Dr. Sylvester Javier MD Work Phone: [facility] 11-11-2024 11:57-0500 Body mass index (BMI) [Ratio] 34.99 kg/m2 Inocencio Rainey MD Work Phone: [facility] 11-11-2024 11:57-0500 Body temperature 98.49 [degF] Inocencio Rainey MD Work Phone: [facility] 11-11-2024 11:57-0500 Body weight 117.03 kg Inocencio Rainey MD Work Phone: [facility] 11-11-2024 11:57-0500 Diastolic blood pressure 88 mm[Hg] Inocencio Rainey MD Work Phone: [facility] 11-11-2024 11:57-0500 Heart rate 82 /min Inocencio Rainey MD Work Phone: [facility] 11-11-2024 11:57-0500 SaO2% (BldA) [Mass fraction] 96 % Inocencio Rainey MD Work Phone: [facility] 11-11-2024 11:57-0500 Systolic blood pressure 155 mm[Hg] Inocencio Rainey MD Work Phone: [facility] 05-12-2024 13:03-0400 Body height 182.9 cm Inocencio Rainey MD Work Phone: [facility] Comment on above: verified with Shakira Encinas LPN 05-12-2024 13:03-0400 Body mass index (BMI) [Ratio] 35.94 kg/m2 Inocencio Rainey MD Work Phone: [facility] 05-12-2024 13:03-0400 Body temperature 98.6 [degF] Inocencio Rainey MD Work Phone: [facility] 05-12-2024 13:03-0400 Body weight 120.2 kg Inocencio Rainey MD Work Phone: [facility] 05-12-2024 13:03-0400 Diastolic blood pressure 99 mm[Hg] Inocencio Rainey MD Work Phone: [facility] 05-12-2024 13:03-0400 Heart rate 79 /min Inocencio Rainey MD Work Phone: [facility] 05-12-2024 13:03-0400 SaO2% (BldA) [Mass fraction] 96 % Inocencio Rainey MD Work Phone: [facility] 05-12-2024 13:03-0400 Systolic blood pressure 170 mm[Hg] Inocencio Rainey MD Work Phone: [facility] 02-19-2024 08:56-0400 Body height 185.[address] Sylvester Javier Work Phone: [facility] 02-19-2024 08:56-0400 Body mass index (BMI) [Ratio] 35.6 kg/m2 Dr. Sylvester Javier Work Phone: [facility] 02-19-2024 08:56-0400 Body temperature 98.2 [degF] Dr. Sylvester Javier Work Phone: [facility] 02-19-2024 08:56-0400 Body weight 122.[address] Sylvester Javier Work Phone: [facility] 02-19-2024 08:56-0400 Diastolic blood pressure 81 mm[Hg] Dr. Sylvester Javier Work Phone: [facility] 02-19-2024 08:56-0400 Heart rate 76 /min Dr. Sylvester Javier Work Phone: [facility] 02-19-2024 08:56-0400 Respiratory rate 17 /min Dr. Sylvester Javier Work Phone: [facility] 02-19-2024 08:56-0400 SaO2% (BldA) [Mass fraction] 96 % Dr. Sylvester Javier Work Phone: [facility] 02-19-2024 08:56-0400 Systolic blood pressure 153 mm[Hg] Dr. Sylvester Javier Work Phone: [facility] 01-20-2024 10:15-0500 Body weight 123.3 kg Marilyn Chan APRN.[employer] OPERATOR Work Phone: [facility] 01-20-2024 10:15-0500 Diastolic blood pressure 74 mm[Hg] Marilyn Chan APRN.[employer] OPERATOR Work Phone: [facility] 01-20-2024 10:15-0500 Heart rate 80 /min Marilyn Chan APRN.[employer] OPERATOR Work Phone: [facility] 01-20-2024 10:15-0500 SaO2% (BldA) [Mass fraction] 97 % Marilyn Chan APRN.[employer] OPERATOR Work Phone: [facility] 01-20-2024 10:15-0500 Systolic blood pressure 132 mm[Hg] Marilyn Chan APRN.[employer] OPERATOR Work Phone: [facility] 01-05-2024 11:36-0500 Body height 185.[address] Sylvester Javier Work Phone: [facility] 01-05-2024 11:36-0500 Body mass index (BMI) [Ratio] 36.2 kg/m2 Dr. Sylvester Javier Work Phone: [facility] 01-05-2024 11:36-0500 Body temperature 97.6 [degF] Dr. Sylvester Javier Work Phone: [facility] 01-05-2024 11:36-0500 Body weight 124.[address] Sylvester Javier Work Phone: [facility] 01-05-2024 11:36-0500 Diastolic blood pressure 90 mm[Hg] Dr. Sylvester Javier Work Phone: [facility] 01-05-2024 11:36-0500 Heart rate 93 /min Dr. Sylvester Javier Work Phone: [facility] 01-05-2024 11:36-0500 Respiratory rate 16 /min Dr. Sylvester Javier Work Phone: [facility] 01-05-2024 11:36-0500 SaO2% (BldA) [Mass fraction] 96 % Dr. Sylvester Javier Work Phone: [facility] 01-05-2024 11:36-0500 Systolic blood pressure 163 mm[Hg] Dr. Sylvester Javier Work Phone: [facility] 10-15-2023 13:29-0500 Body temperature 97.9 [degF] Blessing Ciuni [employer] OPERATOR Work Phone: [facility] 10-15-2023 13:29-0500 Body weight 117.48 kg Blessing Ciuni [employer] OPERATOR Work Phone: [facility] 10-15-2023 13:29-0500 Diastolic blood pressure 69 mm[Hg] Blessing Ciuni [employer] OPERATOR Work Phone: [facility] 10-15-2023 13:29-0500 Heart rate 86 /min Blessing Ciuni [employer] OPERATOR Work Phone: [facility] 10-15-2023 13:29-0500 Respiratory rate 16 /min Blessing Ciuni [employer] OPERATOR Work Phone: [facility] 10-15-2023 13:29-0500 SaO2% (BldA) [Mass fraction] 95 % Blessing Ciuni [employer] OPERATOR Work Phone: [facility] 10-15-2023 13:29-0500 Systolic blood pressure 124 mm[Hg] Blessing Ciuni JAIME Work Phone: [facility] 09-04-2023 10:25-0400 Body height 182.[address] Sylvester Javier Work Phone: [facility] 09-04-2023 10:25-0400 Body mass index (BMI) [Ratio] 35.6 kg/m2 Dr. Sylvester Javier Work Phone: [facility] 09-04-2023 10:25-0400 Body weight 119.[address] Sylvester Javier Work Phone: [facility] 09-04-2023 10:25-0400 Diastolic blood pressure 75 mm[Hg] Dr. Sylvester Javier Work Phone: [facility] 09-04-2023 10:25-0400 Heart rate 76 /min Dr. Sylvester Javier Work Phone: [facility] 09-04-2023 10:25-0400 Respiratory rate 16 /min Dr. Sylvester Javier Work Phone: [facility] 09-04-2023 10:25-0400 Systolic blood pressure 137 mm[Hg] Dr. Sylvester Javier Work Phone: [facility] 09-03-2023 11:37-0400 Body mass index (BMI) [Ratio] 35.8 kg/m2 Dr. Sylvester Javier Work Phone: [facility] 09-03-2023 11:37-0400 Body temperature 98.3 [degF] Dr. Sylvester Javier Work Phone: [facility] 09-03-2023 11:37-0400 Body weight 119.[address] Sylvester Javier Work Phone: [facility] 09-03-2023 11:37-0400 Diastolic blood pressure 77 mm[Hg] Dr. Sylvester Javier Work Phone: [facility] 09-03-2023 11:37-0400 Heart rate 79 /min Dr. Sylvester Javier Work Phone: [facility] 09-03-2023 11:37-0400 Respiratory rate 16 /min Dr. Sylvester Javier Work Phone: [facility] 09-03-2023 11:37-0400 SaO2% (BldA) [Mass fraction] 93 % Dr. Sylvester Javier Work Phone: [facility] 09-03-2023 11:37-0400 Systolic blood pressure 134 mm[Hg] Dr. Sylvester Javier Work Phone: [facility] 02-26-2023 13:02-0400 Body temperature 98.4 [degF] Dr. Sylvester Javier Work Phone: [facility] 02-26-2023 13:02-0400 Body weight 118.[address] Sylvester Javier Work Phone: [facility] 02-26-2023 13:02-0400 Diastolic blood pressure 75 mm[Hg] Dr. Sylvester Javier Work Phone: [facility] 02-26-2023 13:02-0400 Heart rate 81 /min Dr. Sylvester Javier Work Phone: [facility] 02-26-2023 13:02-0400 Respiratory rate 18 /min Dr. Sylvester Javier Work Phone: [facility] 02-26-2023 13:02-0400 SaO2% (BldA) [Mass fraction] 94 % Dr. Sylvester Javier Work Phone: [facility] 02-26-2023 13:02-0400 Systolic blood pressure 125 mm[Hg] Dr. Sylvester Javier Work Phone: [facility] 12-18-2022 09:32-0500 Body temperature 97.2 [degF] Dr. Sylvester Javier Work Phone: [facility] 12-18-2022 09:32-0500 Body weight 120.[address] Sylvester Javier Work Phone: [facility] 12-18-2022 09:32-0500 Diastolic blood pressure 81 mm[Hg] Dr. Sylvester Javier Work Phone: [facility] 12-18-2022 09:32-0500 Heart rate 83 /min Dr. Sylvester Javier Work Phone: [facility] 12-18-2022 09:32-0500 Respiratory rate 18 /min Dr. Sylvester Javier Work Phone: [facility] 12-18-2022 09:32-0500 SaO2% (BldA) [Mass fraction] 98 % Dr. Sylvester Javier Work Phone: [facility] 12-18-2022 09:32-0500 Systolic blood pressure 146 mm[Hg] Dr. Sylvester Javier Work Phone: [facility] 11-07-2022 09:26-0500 Body height 182.[address] Sylvester Javier Work Phone: [facility] 11-07-2022 09:26-0500 Body mass index (BMI) [Ratio] 37.3 kg/m2 Dr. Sylvester Javier Work Phone: [facility] 11-07-2022 09:26-0500 Body weight 124.[address] Sylvester Javier Work Phone: [facility] 11-07-2022 09:26-0500 Diastolic blood pressure 79 mm[Hg] Dr. Sylvester Javier Work Phone: [facility] 11-07-2022 09:26-0500 Heart rate 78 /min Dr. Sylvester Javier Work Phone: [facility] 11-07-2022 09:26-0500 Respiratory rate 18 /min Dr. Sylvester Javier Work Phone: [facility] 11-07-2022 09:26-0500 SaO2% (BldA) [Mass fraction] 97 % Dr. Sylvester Javier Work Phone: [facility] 11-07-2022 09:26-0500 Systolic blood pressure 135 mm[Hg] Dr. Sylvester Javier Work Phone: [facility] 10-02-2022 08:59-0500 Body temperature 97.8 [degF] Dr. Sylvester Javier Work Phone: [facility] Work Phone: 10-02-2022 08:59-0500 Body weight 123.[address] Sylvester Javier Work Phone: [facility] Work Phone: 10-02-2022 08:59-0500 Diastolic blood pressure 74 mm[Hg] Dr. Sylvester Javier Work Phone: [facility] Work Phone: 10-02-2022 08:59-0500 Heart rate 90 /min Dr. Sylvester Javier Work Phone: [facility] Work Phone: 10-02-2022 08:59-0500 Respiratory rate 18 /min Dr. Sylvester Javier Work Phone: [facility] Work Phone: 10-02-2022 08:59-0500 SaO2% (BldA) [Mass fraction] 95 % Dr. Sylvester Javier Work Phone: [facility] Work Phone: 10-02-2022 08:59-0500 Systolic blood pressure 130 mm[Hg] Dr. Sylvester Javier Work Phone: [facility] Work Phone: 09-13-2022 13:54-0400 Body temperature 97.59 [degF] Blessing Farris APRN.CNP Work Phone: [facility] 09-13-2022 13:54-0400 Body weight 124.74 kg Blessing Farris [employer] OPERATOR Work Phone: [facility] 09-13-2022 13:54-0400 Diastolic blood pressure 81 mm[Hg] Blessing Farris [employer] OPERATOR Work Phone: [facility] 09-13-2022 13:54-0400 Heart rate 76 /min Blessing Farris [employer] OPERATOR Work Phone: [facility] 09-13-2022 13:54-0400 SaO2% (BldA) [Mass fraction] 97 % Blessing Saleemi [employer] OPERATOR Work Phone: [facility] 09-13-2022 13:54-0400 Systolic blood pressure 141 mm[Hg] Blessing Farris [employer] OPERATOR Work Phone: [facility] 08-14-2022 13:02-0400 Body temperature 97 [degF] Dr. Sylvester Javier Work Phone: [facility] Work Phone: 08-14-2022 13:02-0400 Body weight 122.[address] Sylvester Javier Work Phone: [facility] Work Phone: 08-14-2022 13:02-0400 Diastolic blood pressure 80 mm[Hg] Dr. Sylvester Javier Work Phone: [facility] Work Phone: 08-14-2022 13:02-0400 Heart rate 85 /min Dr. Sylvester Javier Work Phone: [facility] Work Phone: 08-14-2022 13:02-0400 Respiratory rate 18 /min Dr. Sylvester Javier Work Phone: [facility] Work Phone: 08-14-2022 13:02-0400 SaO2% (BldA) [Mass fraction] 94 % Dr. Sylvester Javier Work Phone: [facility] Work Phone: 08-14-2022 13:02-0400 Systolic blood pressure 130 mm[Hg] Dr. Sylvester Javier Work Phone: [facility] Work Phone: 06-26-2022 13:48-0400 Body height 182.[address] Sylvester Javier Work Phone: [facility] Work Phone: 06-26-2022 13:48-0400 Body weight 122.[address] Sylvester Javier Work Phone: [facility] Work Phone: 06-10-2022 11:40-0400 Body height 182.[address] Sylvester Javier Work Phone: [facility] Work Phone: 06-10-2022 11:40-0400 Body mass index (BMI) [Ratio] 36.5 kg/m2 Dr. Sylvester Javier Work Phone: [facility] Work Phone: 06-10-2022 11:40-0400 Body temperature 98.1 [degF] Dr. Sylvester Javier Work Phone: [facility] Work Phone: 06-10-2022 11:40-0400 Body weight 122.[address] Sylvester Javier Work Phone: [facility] Work Phone: 06-10-2022 11:40-0400 Diastolic blood pressure 68 mm[Hg] Dr. Sylvester Javier Work Phone: [facility] Work Phone: 06-10-2022 11:40-0400 Heart rate 88 /min Dr. Sylvester Javier Work Phone: [facility] Work Phone: 06-10-2022 11:40-0400 Respiratory rate 18 /min Dr. Sylvester Javier Work Phone: [facility] Work Phone: 06-10-2022 11:40-0400 SaO2% (BldA) [Mass fraction] 96 % Dr. Sylvester Javier Work Phone: [facility] Work Phone: 06-10-2022 11:40-0400 Systolic blood pressure 126 mm[Hg] Dr. Sylvester Javier Work Phone: [facility] Work Phone: 06-05-2022 18:29-0400 Body weight 122.[address] Sylvester Javier Work Phone: [facility] Work Phone: 05-17-2022 13:25-0400 Body mass index (BMI) [Ratio] 37 kg/m2 Dr. Sylvester Javier Work Phone: [facility] Work Phone: 05-17-2022 13:25-0400 Body temperature 97.7 [degF] Dr. Sylvester Javier Work Phone: [facility] Work Phone: 05-17-2022 13:25-0400 Body weight 123.[address] Sylvester Javier Work Phone: [facility] Work Phone: 05-17-2022 13:25-0400 Diastolic blood pressure 80 mm[Hg] Dr. Sylvester Javier Work Phone: [facility] Work Phone: 05-17-2022 13:25-0400 Heart rate 80 /min Dr. Sylvester Javier Work Phone[facility] [facility] Work Phone: 05-17-2022 13:25-0400 Respiratory rate 18 /min Dr. Sylvester Javier Work Phone: [facility] Work Phone: 05-17-2022 13:25-0400 SaO2% (BldA) [Mass fraction] 96 % Dr. Sylvester Javier Work Phone: [facility] Work Phone: 05-17-2022 13:25-0400 Systolic blood pressure 128 mm[Hg] Dr. Sylvester Javier Work Phone: [facility] Work Phone: 05-15-2022 13:45-0400 Body temperature 98.91 [degF] Jasiel Derian [employer] OFFICER.WINCH TRUCK OPERATOR Work Phone: [facility] 05-15-2022 13:45-0400 Body weight 125.24 kg Jasiel Derian [employer] OFFICER.WINCH TRUCK OPERATOR Work Phone: [facility] 05-15-2022 13:45-0400 Diastolic blood pressure 84 mm[Hg] Jasiel Derian [employer] OFFICER.WINCH TRUCK OPERATOR Work Phone: [facility] 05-15-2022 13:45-0400 Heart rate 76 /min Jasiel Derian [employer] OFFICER.WINCH TRUCK OPERATOR Work Phone: [facility] 05-15-2022 13:45-0400 Respiratory rate 18 /min Jasiel Derian [employer] OFFICER.WINCH TRUCK OPERATOR Work Phone: [facility] 05-15-2022 13:45-0400 SaO2% (BldA) [Mass fraction] 95 % Jasiel Derian [employer] OFFICER.WINCH TRUCK OPERATOR Work Phone: [facility] 05-15-2022 13:45-0400 Systolic blood pressure 138 mm[Hg] Jasiel Derian [employer] OFFICER.WINCH TRUCK OPERATOR Work Phone: [facility] 04-24-2022 15:28-0400 Body mass index (BMI) [Ratio] 37.1 kg/m2 Dr. Sylvester Javier Work Phone: [facility] Work Phone: 04-24-2022 15:28-0400 Body weight 124.[address] Sylvester Javier Work Phone: [facility] Work Phone: 04-24-2022 15:28-0400 Diastolic blood pressure 67 mm[Hg] Dr. Sylvester Javier Work Phone: [facility] Work Phone: 04-24-2022 15:28-0400 Heart rate 77 /min Dr. Sylvester Javier Work Phone: [facility] Work Phone: 04-24-2022 15:28-0400 Respiratory rate 18 /min Dr. Sylvester Javier Work Phone: [facility] Work Phone: 04-24-2022 15:28-0400 SaO2% (BldA) [Mass fraction] 96 % Dr. Sylvester Javier Work Phone: [facility] Work Phone: 04-24-2022 15:28-0400 Systolic blood pressure 133 mm[Hg] Dr. Sylvester Javier Work Phone: [facility] Work Phone: 04-15-2022 10:11-0400 Body height 184 cm Juan Miguel Smith MD Work Phone: [facility] 04-15-2022 [id number] Body temperature 98.4 [degF] Juan Miguel Smith MD Work Phone: [facility] 04-15-2022 10:11-0400 Body weight 125.42 kg Juan Miguel Smith MD Work Phone: [facility] 04-15-2022 10:11-0400 Diastolic blood pressure 81 mm[Hg] Juan Miguel Smith MD Work Phone: [facility] 04-15-2022 10:11-0400 Heart rate 80 /min Juan Miguel Smith MD Work Phone: [facility] 04-15-2022 10:11-0400 SaO2% (BldA) [Mass fraction] 96 % Juan Miguel Smith MD Work Phone: [facility] 04-15-2022 10:11-0400 Systolic blood pressure 138 mm[Hg] Juan Miguel Smith MD Work Phone: [facility] 05-25-2021 17:00-0400 Diastolic blood pressure 77 mm[Hg] Zak Gracia MD Work Phone: [facility] Work Phone: 05-25-2021 17:00-0400 Heart rate 65 /min Zak Gracia MD Work Phone: [facility] Work Phone: 05-25-2021 17:00-0400 Respiratory rate 23 /min Zak Gracia MD Work Phone: [facility] Work Phone: 05-25-2021 17:00-0400 Systolic blood pressure 112 mm[Hg] Zak Gracia MD Work Phone: [facility] Work Phone: 05-25-2021 15:15-0400 SaO2% (BldA) [Mass fraction] 96 % Zak Gracia MD Work Phone: [facility] Work Phone: 05-25-2021 12:08-0400 Body temperature 98.2 [degF] Zak Gracia MD Work Phone: [facility] Work Phone: 05-25-2021 10:59-0400 Body height 185.4 cm Zak Gracia MD Work Phone: [facility] Work Phone: 05-25-2021 10:59-0400 Body mass index (BMI) [Ratio] 36.36 kg/m2 Zak Gracia MD Work Phone: [facility] Work Phone: 05-25-2021 10:59-0400 Body weight 125 kg Zak Gracia MD Work Phone: [facility] Work Phone: Encounters Encounter Date Encounter Type Care Provider Facility Start: 06-02-2025 End: 06-02-[address] Sylvester Javier MD Work Phone: -[facility] Start: 06-02-2025 End: 06-02-[address] 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 Sylvester Javier MD -[facility] Work Phone: Start: 03-07-2025 End: 03-07-2025 ambulatory Sylvester Javier Facility:[facility] Start: 01-31-2025 End: 01-31-2025 ambulatory Felicia HUNTER Pulmonary Medicine Comment on above: Lung nodules (Primar y Dx) Start: 01-27-2025 End: 01-27-2025 ambulatory Felicia HUNTER Pulmonary Medicine Start: 01-27-2025 End: 01-27-2025 Telephone encounter Felicia Quinn [facility] Pulmonary Medicine Comment on above: Appointment Start: 01-21-2025 End: 01-25-2025 Telephone encounter Carey Rodriguez APRN.CNP Work Phone: Pulmonary Medicine Start: 01-19-2025 End: 01-19-2025 ambulatory Sylvestermavis Javier Facility:[facility] Start: 01-13-2025 End: 01-13-2025 Emergency department patient visit Sylvestermavis Javier Facility:[facility] Start: 12-06-2024 End: 12-06-2024 ambulatory [facility] Facility:[facility] Start: 11-11-2024 End: 11-11-2024 Patient encounter procedure Inocencio Rainey MD Work Phone: Hematology/Oncology Start: 11-11-2024 End: 11-11-2024 ambulatory Inocencio Rainey MD Work Phone: Hematology/Oncology Comment on above: 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) Start: 10-04-2024 End: 10-04-2024 ambulatory Sylvestermavis Javier Facility:[facility] Start: 09-23-2024 End: 09-23-2024 Emergency department patient visit Sylvestermavis Javier Facility:[facility] Start: 08-20-2024 End: 08-20-2024 ambulatory Jermaine Dameon Facility:[facility] Start: 08-15-2024 End: 08-16-2024 ambulatory Sylvestermavis Javier Facility:[facility] Start: 07-05-2024 End: 07-05-2024 ambulatory Sylvestermavis Javier Facility:[facility] Start: 06-26-2024 End: 06-28-2024 ambulatory Sylvestermavis Javier Facility:[facility] Start: 06-19-2024 ambulatory Sylvestermavis Javier Facility [facility] Start: 06-18-2024 [facility] Start: 06-18-2024 End: 06-23-2024 Evaluation and management of inpatient Sylvester Javier Facility:[facility] Start: 06-15-2024 End: 06-15-2024 ambulatory [facility] Facility:[facility] Start: 06-10-2024 ambulatory Sylvester Javier Facility :[facility] Start: 05-17-2024 End: 05-18-2024 ambulatory Sylvester Javier Facility:[facility] Start: 05-12-2024 End: 05-12-2024 ambulatory Inocencio Rainey MD Work Phone: Hematology/Oncology Comment on above: 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) Start: 05-12-2024 End: 05-12-2024 Patient encounter procedure Inocencio Rainey MD Work Phone: Hematology/Oncology Start: 05-06-2024 End: 05-06-2024 ambulatory Sylvester Javier Facility:[facility] Start: 04-26-2024 End: 04-26-2024 ambulatory Sylvester Javier Facility:[facility] Start: 04-17-2024 End: 04-17-2024 ambulatory [facility] Facility:[facility] Start: 04-14-2024 End: 04-14-2024 Emergency department patient visit SYLVESTER JAVIER Facility:[facility] Start: 04-12-2024 End: 04-12-2024 ambulatory Sylvester Javier Facility:[facility] Start: 03-31-2024 End: 03-31-2024 ambulatory Sylvestermavis Javier Facility:[facility] Start: 03-25-2024 End: 03-25-[address] Sylvester Javier Work Phone: [facility] Work Phone: Start: 03-25-2024 End: 03-25-[address] Sylvester Javier Work Phone: [facility]-Physical Therapy Work Phone: Start: 02-19-2024 End: 02-19-[address] Sylvester Javier Work Phone: [facility] Work Phone: Start: 02-04-2024 End: 02-05-2024 ambulatory KIKI WEN CNM Facility:A Start: 01-26-2024 Telephone encounter Genesis Elias RN Pulmonary Medicine Comment on above: FILM DANIEL Start: 01-22-2024 End: 01-22-[address] Sylvester Javier Work Phone: [facility] Work Phone: Start: 01-22-2024 End: 01-22-[address] Sylvester Javier Work Phone: [facility]-Physical Therapy Work Phone: Start: 01-20-2024 End: 01-20-2024 Patient encounter procedure Marilyn Edwards Dustin [employer] OFFICER.WINCH TRUCK OPERATOR Work Phone: Pulmonary Medicine Comment on above: Lung nodules (Primar y Dx) Start: 01-19-2024 End: 01-19-[address] Sylvester Javier Work Phone: [facility] Work Phone: Start: 01-16-2024 End: 01-17-2024 ambulatory KIKI WEN CNM Facility:[facility] Start: 01-16-2024 End: 01-16-2024 Patient encounter procedure MIRIAN SUMNER APRN-WINCH TRUCK OPERATOR [facility] Start: 01-14-2024 End: 01-14-2024 Subsequent hospital visit by physician [facility] (I-Stat) Work Phone: Cat Scan Comment on above: Lung nodules [R91.8] Start: 01-05-2024 End: 01-05-[address] Sylvester Javier Work Phone: [facility] Work Phone: Start: 12-15-2023 End: 12-20-2023 ambulatory KIKI WEN CNM Facility:[facility] Start: 12-15-2023 End: 12-15-2023 Patient encounter procedure MIRIAN SUMNER APRN-WINCH TRUCK OPERATOR [facility] Start: 10-23-2023 End: 10-28-2023 ambulatory KIKI WEN [facility] Facility:[id number] Start: 10-15-2023 End: 10-15-2023 Patient encounter procedure Blessing Farris APRN.WINCH TRUCK OPERATOR Work Phone: Pulmonary Medicine Comment on above: Lung nodules (Primar y Dx); Personal history of CLL (chronic lymphocytic leukemia) Start: 10-15-2023 End: 10-15-2023 Subsequent hospital visit by physician Ct [facility] (I-Stat) Radiology Comment on above: Lung nodules [R91.8] Start: 10-08-2023 End: 10-08-[address] Sylvester Javier Work Phone: [facility] Work Phone: Start: 10-08-2023 End: 10-08-[address] Sylvester Javier Work Phone: [facility] Work Phone: Start: 09-04-2023 End: 09-04-[address] Sylvester Javier Work Phone: [facility] Work Phone: Start: 09-03-2023 End: 09-03-[address] Sylvester Javier Work Phone: [facility] Work Phone: Start: 07-04-2023 ambulatory Felicia Quinn Pulmonar y Medicine Start: 06-30-2023 Orders Only Blessing NEW RN.WINCH TRUCK OPERATOR Work Phone: Pulmonary Medicine Comment on above: Lung nodules (Primar y Dx); Former tobacco use Start: 06-27-2023 ambulatory Felicia Quinn Pulmonar y Medicine Start: 03-05-2023 Telephone encounter Casa bennett MD Work Phone: Hematology/Oncology Comment on above: Future Appointment Start: 02-26-2023 End: 02-26-[address] Sylvester Javier Work Phone: [facility] Work Phone: Start: 02-26-2023 End: 02-26-[address] Sylvester Javier Work Phone: [facility] [place] Start: 12-18-2022 End: 12-18-[address] Sylvester Javier Work Phone: [facility] Start: 11-19-2022 End: 11-19-[address] Sylvester Javier Work Phone: [facility]-Physical Therapy Start: 11-19-[address] Sylvester Javier Work Phone: [facility]-Physical Therapy Start: 11-07-2022 End: 11-07-[address] Sylvester Javier Work Phone: [facility] Work Phone: Start: 11-07-2022 End: 11-07-[address] Sylvester Javier Work Phone: [facility] Start: 10-16-2022 End: 10-16-[address] Sylvester Javier Work Phone: [facility] Work Phone: Start: 10-16-2022 End: 10-16-[address] Sylvester Javier Work Phone: [facility]-Radiology, [facility] Start: 10-11-2022 End: 10-11-2022 Patient encounter procedure MANAN VÁZQUZE [employer] OFFICER-WINCH TRUCK OPERATOR [facility] Start: 10-02-2022 End: 10-02-[address] Sylvester Javier Work Phone: [facility] [place] Start: 09-30-2022 End: 09-30-2022 Patient encounter procedure Karen Medina [employer] OFFICER.WINCH TRUCK OPERATOR Work Phone: [facility] Comment on above: Left lower quadrant abdominal pain (Primary Dx) Start: 09-25-2022 ambulatory Blessing NEW RN.WINCH TRUCK OPERATOR Work Phone: Pulmonology Start: 09-25-2022 Telephone encounter Blessing Saleem i [employer] OFFICER.WINCH TRUCK OPERATOR Work Phone: Pulmonology Comment on above: Results Start: 09-20-2022 End: 09-20-2022 Subsequent hospital visit by physician [facility] (I-Stat) Work Phone: Cat Scan Comment on above: Lung nodules [R91.8] Start: 09-16-2022 ambulatory Felicia Quinn Pulmonar y Medicine Start: 09-13-2022 End: 09-13-2022 Patient encounter procedure Blessing Farris APRN.WINCH TRUCK OPERATOR Work Phone: Pulmonary Medicine Comment on above: Lung nodule (Primary Dx); Former tobacco use; Lung nodules Start: 09-10-2022 End: 09-10-2022 Patient encounter procedure MANAN VÁZQUEZ APRN-WINCH TRUCK OPERATOR [facility] Start: 08-14-2022 End: 08-14-[address] Sylvester Javier Work Phone: [facility] [place] Start: 07-23-2022 ambulatory Felicia Quinn Pulmonar y Medicine Start: 07-17-2022 End: 07-17-[address] Sylvester Javier Work Phone: [facility] Work Phone: Start: 07-17-2022 End: 07-17-[address] Sylvester Javier Work Phone: [facility]-Physical Therapy Start: 06-26-2022 End: 07-24-[address] [facility] Start: 06-26-[address] Sylvester Javier Work Phone: [facility] Start: 06-20-2022 [facility]ulatory [facility] Start: 06-18-[address] Sylvester Javier Work Phone: [facility]-Physical Therapy Start: 06-14-2022 End: 06-14-[address] Sylvester Javier Work Phone: [facility]-Ultrasound, [facility] Start: 06-10-2022 End: 06-10-[address] Sylvester Javier Work Phone: [facility] Start: 06-05-2022 End: 06-23-[address] [facility] Start: 06-05-[address] Syl[facility] Start: 06-04-2022 ambulatory Sommer Chopra APRN.WINCH TRUCK OPERATOR Work Phone: Pulmonary Medicine Start: 05-17-2022 End: 05-17-[address] Sylvester Javier Work Phone: [facility] Internal Medicine Start: 05-15-2022 End: 05-15-2022 Subsequent hospital visit by physician [facility] Work Phone: Radiology Comment on above: Acute midline low ba ck pain without sciatica [M54.50] Start: 05-15-2022 End: 05-15-2022 Patient encounter procedure Jasiel Menard APRN.WINCH TRUCK OPERATOR Work Phone: [facility] Comment on above: Fall, initial encoun ter (Primary Dx); Acute midline low back pain without sciatica Start: 04-24-2022 End: 04-24-[address] 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) Start: 04-15-2022 End: 04-15-2022 Patient encounter procedure Juan Miguel Smith MD Work Phone: [facility] Start: 05-25-2021 End: 05-25-2021 Subsequent hospital visit by physician Zak Gracia MD Work Phone: [facility] Ticket Dispatcher Comment on above: Coronary artery dise ase involving [place] coronary artery of [place] heart without angina pectoris (Primary Dx); S/P drug eluting coronary stent placement Start: 07-28-2018 End: 07-28-2018 Patient encounter [facility] Procedures Date Procedure Procedure Detail Performing Clinician Start: 01-19-2024 Plain X-ray of shoulder Dr. Sylvester Javier Work Phone: Start: 10-15-2023 Ct thorax w/o contra st material Blessing Ciuni [employer] OFFICER.WINCH TRUCK OPERATOR Work Phone: Start: 10-16-2022 X-ray of lumbar spin e, two or three views Dr. Sylvester Javier Work Phone: Start: 09-20-2022 Ct thorax w/o contra st material Blessing Ciuni [employer] OFFICER.WINCH TRUCK OPERATOR Work Phone: Start: 06-14-[address] Ольга Javier Work Phone: Start: 05-15-2022 Radex spine lumbosac ral 2/3 views Jasiel Menard [employer] OFFICER.WINCH TRUCK OPERATOR Work Phone: Start: 05-25-2021 History of placement of stent for coronary artery disease S/P drug eluting coronary stent placement Zak Gracia MD Work Phone: Comment on above: NCI-TFI-Dmhq OM1 w/ 2.25 x 16 mm Promus Synergy, CLAUDINE mid LCx w/2.25 x 16 mm Promus Synergy 05/17/2020; EZW-GDQ-Slss LCx w/ 3.5 x 12 mm , Xience Skypoint Stent 05/25/21 Start: 05-25-2021 Ecg routine ecg w/le ast 12 lds w/i&r Gracie Dyer [employer] OFFICER [facility] Work Phone: Start: 05-25-2021 CARDIAC CATH NURSING LOG 3m Scanning Start: 05-25-2021 Ecg routine ecg w/le ast 12 lds w/i&r Gracie Dyer [employer] OFFICER [facility] Work Phone: Start: 03-18-2019 Adult depression screening assessment Juan Miguel Smith MD Work Phone: Start: 11-24-1991 History of coronary artery bypass grafting H/O coronary artery bypass surgery Dr. Sylvester Javier Work Phone: Comment on above: CABG x 4 LIU-LAD, R MATTHEW-RCA, SVG-OM2, SVG-? Cystoscopy and retrograde pyelography MANAN VÁZQUEZ [email or web address] Comment on above: with stent placement 9 stents at different times. Patient does not remember dates. Open heart surgery MANAN PINEDA [email or web address] Comment on above: Patient unsure of da colton Plan of Treatment Date Care Activity Detail Author Start: 04-14-2027 Diabetes Screening Diabetes Screenera [place] Start: 05-23-2026 End: 05-23-2026 ambulatory 05/23/2026 10:00 AM EDT Visit (SP) Office Hematology/Oncology [address] [place] [address] Incoencio Rainey MD [address], [place] [id number] 1YR OV* Hematology/Oncology Comment on above: 1YR OV* Start: 04-17-2026 DIABETES [facility]CREEN [facility] Start: 04-17-2026 Diabetes Screening Diabetes [facility]era [place] [facility] Start: 10-11-2025 End: 10-11-2025 ambulatory PULM LAB [facility] Comment on above: Chronic obstructive pulmonary disease, unspecified COPD type (HCC) [J44.9] Start: 10-11-2025 End: 10-11-2025 Patient encounter procedure 10/11/2025 9:30 AM EST Office Visit Pulmonary Medicine [address] [place] [address] Antoinette Ochoa MD [address] [place] [address] Chronic obstructive pulmonary disease, unspecified COPD type (HCC) [J44.9] Pulmonary Medicine Comment on above: Chronic obstructive pulmonary disease, unspecified COPD type (HCC) [J44.9] Start: 07-25-2025 Influenza vaccination Influenza Vacc ine (#1) [facility] Start: 07-12-2025 End: 07-12-2025 ambulatory 07/12/2025 10:00 AM EDT Visit (SP) Office Hematology/Oncology [address] [place] [address] Cori Winchester [address] [address] 8MO OV/CBC Hematology/Oncology Comment on above: 8MO OV/CBC Start: 06-16-2025 End: 06-16-2025 Patient encounter procedure Cat Scan Comment on above: Dx: Lung nodules [R9 1.8] Start: 05-09-2025 End: 08-08-2025 CBC W Auto Differential panel - Blood COMPLETE BLOOD COUNT AND DIFFERENTIAL Lab STAT 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) Expected: 05/09/2025 (Approximate), Expires: 08/08/2025 [facility] Work Phone: Comment on above: Expected: 05/09/2025 (Approximate), Expires: 08/08/2025 Start: 04-25-2025 End: 04-25-2025 Patient encounter procedure 04/25/2025 11:00 AM EDT Office Visit Pulmonary Medicine [address] [place] [address] Antoinette Ochoa MD [address] [place] [address] Dx: Chronic obstructive pulmonary disease, unspecified COPD type (HCC) [J44.9] Pulmonary Medicine Comment on above: Dx: Chronic obstruct venkat pulmonary disease, unspecified COPD type (HCC) [J44.9] Start: 04-25-2025 End: 04-25-2025 ambulatory PULM LAB [facility] Comment on above: Dx: Chronic obstruct venkat pulmonary disease, unspecified COPD type (HCC) [J44.9] Start: 04-15-2025 DIABETES SCREEN DIABETES SCREEN [facility] Start: 03-15-2025 End: 03-15-2025 Patient encounter procedure Radiology Comment on above: Lung nodules [R91.8] Start: 02-08-2025 Covid-19 Vaccine (8 - Moderna risk season) Covid-19 Vaccine (8 - Moderna risk season) [facility] Start: 01-25-2025 End: 01-25-2025 Patient encounter procedure 01/25/2025 10:00 AM EST Office Visit Pulmonary Medicine [address] [address] Carey Rodriguez APRN.WINCH TRUCK OPERATOR [address] [place] [address] follow up Pulmonary Medicine Comment on above: follow up Start: 01-20-2025 End: 01-20-2025 Patient encounter procedure 01/20/2025 10:00 AM EST Appointment Radiology [address] [place] [address] Lung nodules [R91.8] Radiology Comment on above: Lung nodules [R91.8] Start: 11-24-2024 Advance Directive Discussion Advance Directive Discussion [facility] Start: 11-24-2024 Medicare Advantage A nnual Wellness Visit Medicare Advantage Annual Wellness Visit [facility] Start: 11-11-2024 End: 02-10-2025 FISH FOR CLL FISH FOR CLL Lab Routine 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) Expected: 11/11/2024, Expires: 02/10/2025 [facility] Work Phone: Comment on above: Expected: 11/11/2024 , Expires: 02/10/2025 Start: 11-11-2024 End: 11-11-2024 ambulatory [facility] Comment on above: CBC* CBC/6 MO OV* Start: 10-15-2024 BP Controlled (<130/80) BP Con trolled (<130/80) [facility] Start: 10-06-2024 Covid-19 Vaccine ( season) Covid-19 Vaccine () [facility] Start: 07-25-2024 Covid-19 Vaccine () Covid-19 Vaccine () [facility] Start: 07-25-2024 Influenza vaccination Influenza Vacc ine (#1) [facility] Start: 01-05-2024 Patient referral [facility] Work Phone: Start: 12-03-2023 Covid-19 Vaccine () Covid-19 Vaccine () [facility] Start: 11-27-2023 Hepatitis B surface antibody level LDL CHOLESTEROL [facility] Start: 11-24-2023 Advance Directive Discussion Advance Directive Discussion [facility] Start: 11-24-2023 Behavioral Health Screening Behavioral Health Screening [facility] Start: 11-24-2023 Depression Assessment Depression Ass essment [facility] Start: 09-20-2023 End: 07-29-2024 Ct thorax w/o contrast material CT CHEST WO IVCON Radiology Routine Lung nodules Former tobacco use Expected: 09/20/2023, Expires: 07/29/2024 [facility] Work Phone: Comment on above: Expected: 09/20/2023 , Expires: 07/29/2024 Start: 07-25-2023 Covid-19 Vaccine (6 - 2023-24 season) Covid-19 Vaccine ( season) [facility] Start: 07-25-2023 Influenza vaccination [facility] Start: 11-24-2022 ADVANCE DIRECTIVE DISCUSSION ADVANCE DIRECTIVE DISCUSSION [facility] Start: 11-24-2022 DEPRESSION ASSESSMENT DEPRESSION ASS [facility] Start: 08-14-2022 Patient referral [facility] Work Phone: Start: 08-06-2022 COVID-19 VACCINE (5 - Booster for Moderna series) COVID-19 VACCINE (5 - Booster for Moderna series) [facility] Start: 07-25-2022 Influenza vaccination [facility] Start: 06-10-2022 Patient referral [facility] Work Phone: Start: 05-17-2022 Patient referral [facility] Work Phone: Start: 05-14-2022 Creatinine measurement Creatinine mo nitoring [facility] Work Phone: Start: 05-14-2022 Potassium monitoring Potassium monit oring [facility] Work Phone: Start: 11-24-2021 ADVANCE DIRECTIVE DISCUSSION ADVANCE DIRECTIVE DISCUSSION [facility] Start: 11-24-2021 DEPRESSION ASSESSMENT DEPRESSION ASS [facility] Start: 10-09-2021 ANNUAL PCP TEAM OUTBOARD TECHNICIAN USHA DISEASE VISIT ANNUAL PCP TEAM CHRONIC DISEASE VISIT [facility] Start: 08-31-2021 Hepatitis B surface antibody level LDL CHOLESTEROL [facility] Start: 07-25-2021 Influenza vaccination Flu vaccine (# 1) [facility] Work Phone: Start: 05-21-2021 Annual Wellness Visi t (AWV) Annual Wellness Visit (AWV) [facility] Work Phone: Start: 03-18-2020 Adult depression screening assessment DEPRESSION SCREENING [facility] Start: 09-23-2019 FECAL OCCULT BLOOD FECAL OCCULT BLOO D [facility] Start: 09-23-2019 Screening for malign ant neoplasm of colon Fecal Occult Blood [facility] Start: 04-29-2019 Shingles Vaccine (3 of 3) Dickinson gles Vaccine (3 of 3) [facility] Work Phone: Start: 04-29-2019 SHINGRIX VACCINE (2 of 2) DICKINSON GRIX VACCINE (2 of 2) [facility] Start: 04-29-2019 SHINGRIX VACCINE (3 of 3) DICKINSON GRIX VACCINE (3 of 3) [facility] Start: 2018 RSV Vaccine (1 - 1-d ose 75+ series) RSV Vaccine (1 - 1-dose 75+ series) [facility] Start: 08-16-2006 Urine microalbumin profile [facility] Start: 2003 RSV Vaccine (1 - 1-d ose 60+ series) RSV Vaccine (1 - 1-dose 60+ series) [facility] Start: 1962 DTaP/Tdap/Td vaccine (1 - Tdap) DTaP/Tdap/Td vaccine (1 - Tdap) [facility] Work Phone: Start: 1961 Anxiety Screening Anxiety Screening [facility] Start: 1961 BP CONTROLLED (<130/80) BP CON TROLLED (<130/80) [facility] Start: 1961 Depression Screening Depression Scre ening [facility] Start: 1955 COVID-19 Vaccine (1) COVID-19 Vaccin e (1) [facility] Work Phone: Start: 1949 PNEUMOCOCCAL: 65+ (1 - PCV) PNEUMOCOCCAL: 65+ (1 - PCV) [facility] Start: 1945 Hepatitis C screening Hepatitis C sc reen [facility] Work Phone: End: 05-25-2021 Catheterization and angiography procedure details panel Diagnostic Cardiac Ticket Dispatcher Procedure Cardiac Cath Routine One Time for 1 Occurrences starting 05/25/2021 until 05/25/2021 [facility] Work Phone: Comment on above: One Time for 1 Occur rences starting 05/25/2021 until 05/25/2021 CT Chest WO contrast CT CHEST WO IVCON Radiology Routine Lung nodules Personal history of CLL (chronic lymphocytic leukemia) 01/14/2024 1:27 PM EST [facility] Work Phone: End: 02-18-2025 CT Chest WO contrast CT CHEST WO IVCON Radiology Routine Lung nodules 1 Occurrences starting 01/20/2024 until 02/18/2025 [facility] Work Phone: Comment on above: 1 Occurrences starti ng 01/20/2024 until 02/18/2025 End: 03-02-2026 CT Chest WO contrast CT CHEST WO IVCON Radiology Routine Lung nodules 1 Occurrences starting 01/31/2025 until 03/02/2026 [facility] Work Phone: Comment on above: 1 Occurrences starti ng 01/31/2025 until 03/02/2026 CT Chest WO contrast CT CHEST WO IVCON Radiology Routine Lung nodules 03/15/2025 12:08 PM EDT [facility] Work Phone: End: 10-13-2023 Ct thorax w/o contrast material CT CHEST WO IVCON Radiology Routine Lung nodules 1 Occurrences starting 09/13/2022 until 10/13/2023 [facility] Work Phone: Comment on above: 1 Occurrences starti ng 09/13/2022 until 10/13/2023 Ct thorax w/o contra st material CT CHEST WO IVCON Radiology Routine Lung nodules 09/20/2022 11:12 AM EDT [facility] Work Phone: End: 11-13-2024 Ct thorax w/o contrast material CT CHEST WO IVCON Radiology Routine Lung nodules Personal history of CLL (chronic lymphocytic leukemia) 1 Occurrences starting 10/15/2023 until 11/13/2024 [facility] Work Phone: Comment on above: 1 Occurrences starti ng 10/15/2023 until 11/13/2024 Electrocardiogram, 12-lead [facility] Work Phone: MR Cervical spine [facility] Oxygen therapy [[facility] Data Set] Initiate Oxygen Therapy Protocol Respiratory Care Routine Daily until discontinued starting 05/25/2021 [facility] Work Phone: Comment on above: Daily until disconti nued starting 05/25/2021 Patient referral [facility] Work Phone: [facility] Immunizations Immunization Date Immunization Notes Care Provider Fa cility 08-11-2024 influenza virus vacc ine, unspecified formulation Inocencio Rainey MD Work Phone: [facility] 09-03-2023 influenza, injectabl e, quadrivalent, preservative free Dr. Sylvester Javier Work Phone: [facility] 09-03-2023 influenza virus vacc ine, unspecified formulation Xr [place] Work Phone: [facility] 09-04-2022 influenza (HD-IIV4) vaccine, age 65+ yr, high dose, quadrivalent, PF (FLUZONE HIGH-DOSE) Ct (I-Stat) [facility] 09-04-2022 influenza virus vacc ine, unspecified formulation Ct (I-Stat) Work Phone: [facility] 01-31-2021 COVID-19 vaccine, fu ll dose (MODERNA) Juan Miguel Smith MD Work Phone: [facility] 01-03-2021 COVID-19 vaccine, fu ll dose (MODERNA) Juan Miguel Smith MD Work Phone: [facility] 08-09-2020 influenza, injectabl e, quadrivalent, preservative free Ct (I-Stat) [facility] 08-16-2019 influenza, high dose seasonal, preservative-free Ct (I-Stat) [facility] 07-20-[address] (I-Stat) [facility] 03-04-2019 zoster vaccine recombinant Juan Miguel Smith MD Work Phone: [facility] 09-04-2018 influenza, high dose seasonal, preservative-free Juan Miugel Smith MD Work Phone: [facility] 09-04-2018 Seasonal trivalent influenza vaccine, adjuvanted, preservative free Ct (I-Stat) [facility] 08-26-2017 influenza, high dose seasonal, preservative-free Jaun Miguel Smith MD Work Phone: [facility] 09-18-[address] Sylvester Javier Work Phone: [facility] 09-18-2016 influenza, seasonal, injectable, preservative free Ct (I-Stat) [facility] 09-05-2016 influenza, high dose seasonal, preservative-free Juan Miguel Smith MD Work Phone: [facility] 09-05-2016 pneumococcal conjuga te vaccine, 13 valent Juan Miguel Smith MD Work Phone: [facility] 09-14-2015 influenza, high dose seasonal, preservative-free Juan Miguel Smith MD Work Phone: [facility] 08-19-2013 influenza virus vacc ine, unspecified formulation Juan Miguel Smith MD Work Phone: [facility] 10-03-2012 influenza virus vacc ine, unspecified formulation Juan Miguel Smith MD Work Phone: [facility] 12-31-2011 zoster vaccine, live Juan Miguel Smith MD Work Phone: [facility] Work Phone: 09-05-2011 influenza virus vacc ine, unspecified formulation Juan Miguel Smith MD Work Phone: [facility] 10-04-2010 influenza virus vacc ine, unspecified formulation Juan Miguel Smith MD Work Phone: [facility] Work Phone: 09-07-2009 influenza virus vacc ine, unspecified formulation Juan Miguel Smith MD Work Phone: [facility] 09-20-2008 influenza virus vacc ine, unspecified formulation Juan Miguel Smith MD Work Phone: [facility] Work Phone: 09-20-2008 pneumococcal polysaccharide vaccine, 23 valent Juan Miguel Smith MD Work Phone: [facility] Work Phone: 11-03-2007 influenza virus vacc ine, unspecified formulation Juan Miguel Smith MD Work Phone: [facility] 10-06-2006 influenza virus vacc ine, unspecified formulation Juan Miguel Smith MD Work Phone: [facility] 08-15-2006 tetanus and diphther ia toxoids, adsorbed, preservative free, for adult use (2 Lf of tetanus toxoid and 2 Lf of diphtheria toxoid) Juan Miguel Smith MD Work Phone: [facility] Work Phone: 09-24-2003 influenza virus vacc ine, whole virus Juan Miguel Smith MD Work Phone: [facility] Payers Date Payer Category Payer Self-pay [id number] 2021 Medicare AETNA MEDICARE A ETNA MEDICARE PPO [id number] 2021-Present [phone] [address] [place] [address] PPO [id number] 2021 Medicare AETNA MEDICARE A ETNA MEDICARE PPO [id number] 2021-Present [phone] [address] [place] [address] PPO [id number] 2021 Medicare (Managed Care) [facility] [id number] 2021 Private Health Insurance [id number] 2021 Medicare [id number] 1945 Unknown [id number] 2.16.840.1.595334.3.579.2. 627 1945 Unknown [id number] 2.16.840.1.840403.3.579.2. 1943 Unknown [id number] 2.16.840.1.928419.3.579.2. 627 1943 Unknown [id number] 2.16.840.1.563423.3.579.2. 1943 Unknown [id number] 2.16.840.1.904883.3.579.2. 627 Medicare [id number] Self-pay SELF PAY BY [employer] [employer] RE[employer] [id number] Unknown [id number] 2.16.840.1.287274.3.579.2. 462 Unknown [id number] 2.16.840.1.320981.3.579.2. 462 Unknown [id number] 2.16.840.1.508314.3.579.2. 462 Unknown [id number] 2.16.840.1.526062.3.579.2. 462 Unknown [id number] 2.16.840.1.490943.3.579.2. 462 Unknown [id number] 2.16.840.1.297604.3.579.2. 462 Unknown [id number] 2.16.840.1.659468.3.579.2. 462 Unknown [id number] 2.16.840.1.380128.3.579.2. 462 Unknown [id number] 2.16.840.1.981872.3.579.2. 462 Unknown [id number] 2.16.840.1.023319.3.579.2. 462 Unknown [id number] 2.16.840.1.925257.3.579.2. 462 Unknown [id number] 2.840.1.774409.3.579.2. 462 Unknown [id number] 2.840.1.487640.3.579.2. 462 Unknown [id number] 2.840.1.496329.3.579.2. 462 Unknown [id number] 2.840.1.793800.3.579.2. 462 Unknown [id number] 2.840.1.941052.3.579.2. 462 Unknown [id number] 2.840.1.241524.3.579.2. 462 Unknown [id number] 2.840.1.201766.3.579.2. 462 Unknown [id number] 2.840.1.823459.3.579.2. 462 Unknown [id number] 2.840.1.471188.3.579.2. 462 Unknown [id number] 2.840.1.345941.3.579.2. 462 Unknown [id number] .840.1.870698.3.579.2. 462 Unknown [id number] .840.1.620828.3.579.2. 462 Unknown [id number] .840.1.370409.3.579.2. 462 Unknown [id number] .840.1.470068.3.579.2. 462 Unknown [id number] .840.1.806374.3.579.2. 462 Unknown [id number] 2.840.1.824355.3.579.2. 462 Unknown [id number] 2.840.1.405340.3.579.2. 462 Unknown [id number] 2.840.1.927572.3.579.2. 462 Unknown [id number] 2.16.840.1.210767.3.579.2. 462 Unknown [id number] 2.16.840.1.511851.3.579.2. 462 Unknown [id number] 2.16.840.1.703671.3.579.2. 462 Unknown [id number] 2.16.840.1.221506.3.579.2. 462 Unknown [id number] 2.16.840.1.046315.3.579.2. 462 Social History Date Type Detail Facility Start: 05-25-2021 End: 02-19-2024 Tobacco smoking status [facility] Unknown if ever smoked [facility] Start: 1945 Sex Assigned At Not on file [facility] Work Phone: Start: 04-05-2022 End: 09-13-2022 Exposure to SARS-CoV-2 (event) Not sure [facility] Start: 04-19-2020 End: 01-13-2025 Tobacco smoking status NHIS Ex-smoker [facility] Start: [birth year]-20-1965 End: 06-20-2007 History of tobacco use Current smoker [facility] Work Phone: Start: [birth year]-20-1965 End: 06-20-2007 History of tobacco use Cigarette Smoker [facility] Work Phone: Start: 04-15-2022 End: 05-23-2025 Alcohol intake Current drinker of alcohol (finding) [facility] Start: 04-15-2022 End: 04-17-2023 Alcohol intake [facility] Start: 1945 Sex Assigned At Male [facility] Start: 04-19-2020 End: 03-15-2025 Tobacco use and exposure Smokeless tobacco non-user [facility] Start: 09-10-2022 Tobacco smoking status Never s moked tobacco (finding) [facility] Sex Assigned At Sex [facility] Start: 03-18-2019 End: 04-17-2023 Tobacco use panel [facility] National Score (1-100), lower number is lower risk 71 [facility] Start: 04-13-2022 Gender identity Identifies as male gender (finding) [facility] Start: 06-23-2024 [facility] Use [facility] Status Date Assessment Result Facility 02-16-2015 Are you deaf, or do you have serious difficulty hearing No 02/16/2015 9:14 AM EDT Christianne Stevens [facility] No [facility] 02-16-2015 Are you blind, or do you have serious difficulty seeing, even when wearing glasses No 02/16/2015 9:14 AM EDT Christianne Stevens [facility] No [facility] 02-16-2015 Do you have serious difficulty walking or climbing stairs No 02/16/2015 9:14 AM EDT Christianne Stevens [facility] No [facility] 02-16-2015 Do you have difficul ty dressing or bathing No 02/16/2015 9:14 AM EDT Christianne Stevens Ma No [facility] 02-16-2015 Because of a physica l, mental, or emotional condition, do you have difficulty doing errands alone such as visiting a physician's office or shopping No 02/16/2015 9:14 AM EDT Christianne Stevens Ma No [facility] Mental Status Date Assessment Result Facility 02-16-2015 Because of a physica l, mental, or emotional condition, do you have serious difficulty concentrating, remembering, or making decisions No 02/16/2015 9:14 AM EDT Christianne Stevens [facility] No [facility] Clinical Notes 09-10-2016 to 05-23-2025 Inocencio Rainey MD - 05/23/2025 3:06 PM EDTTelephone Encounter - Terri Mathew - 05/06/2025 4:18 PM EDTTelephone Encounter - Terri Mathew - 05/06/2025 4:18 PM EDT Note Date & Type Note Facility 05-23-2025 Note HNO ID: [id number] Author: INOCENCIO RAINEY MD Service: ? Author Type: Physician Type: Progress Notes Filed: 05/24/2025 12:38 Note Text: (Elements copied from my note dated November 11, 2024, have been reviewed and updated where appropriate, and all reflect current assessment and medical decision making from today's encounter, May 23, 2025) HISTORY OF PRESENT ILLNESS: Aric Gonzalez is a 79 year old male dx in 2020 with CLL on basis of lymphocytosis, flow cytometry. Diagnosed with dr Smith [facility]. Has been observed only. Here for follow up, review of cbc. CLINICAL IMPRESSION: CLL, cbc pending RECOMMENDATION/PLAN: 1. Recheck 8-12 months. Will touch base re todays labs when thery are resulted, requests we mail them. Written and verbal health teaching given to patient, patient verbalizes understanding and agrees with treatment plan. 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 Hyperlipidemia impotence prison (current) use of aspirin Low back pain Lower extremity aneurysm 11/12/2021 Nodule of left lung 02/28/2015 NON-ALLERGIC RHINITIS NOS Obesity Occlusion and stenosis of carotid artery without mention of cerebral infarction Synovitis and tenosynovitis, unspecified Unspecified age-related cataract Unspecified macular degeneration Unspecified urinary incontinence PAST SURGICAL HISTORY Procedure Laterality Date CABG, ARTERIAL, FOUR+ 92 COLONOSCOPY FLX DX W/COLLJ SPEC WHEN PFRMD 12/04/2006 Colonoscopy ENDOVAS AAA REPR W/3-P PART 11/07/2016 ESOPHAGOGASTRODUODENOSCOPY TRANSORAL DIAGNOSTIC 10/14/13 EGD INCISION AND DRAINAGE PILONIDAL CYST COMPLICATED 1974 PAST SURGICAL HISTORY OF 1984 VEIN STRIPPING REM LESIO TRUNK,ARM,LEG 1.1 -2.0CM 11/04/09 Exc. ruptured kathy cyst left upper shoulder REM LESIO TRUNK,ARM,LEG 1.1 -2.0CM 10/12/11 Exc. kathy cyst left lower back RPR UMBILICAL HRNA 5 YRS/> REDUCIBLE 09-19-16 TONSILLECTOMY PRIMARY/SECONDARY Tonsillectomy FAMILY HISTORY Problem Relation Age of Onset Cancer Mother Diabetes Father Heart Sister Diabetes Sister No Known Problems Sister Social History Tobacco Use Smoking status: Former Current packs/day: 0.00 Average packs/day: 1 pack/day for 44.0 years (44.0 ttl pk-yrs) Types: Cigarettes Start date: 06/20/1963 Quit date: 06/20/2007 Years since quittin.9 Smokeless tobacco: Never Vaping Use Vaping status: Never Used Substance Use Topics Alcohol use: Yes Comment: RARELY Drug use: No ALLERGIES: ALLERGIES Allergen Reactions Carvedilol Unknown Doxycycline Intolerance Diarrhea Penicillins Hives CURRENT OUTPATIENT MEDICATIONS: lisinopril (ZESTRIL) 5 mg tablet Take 1 tablet by mouth every afternoon. isosorbide mononitrate ER (IMDUR) 60 mg 24 hr tablet Take 1 tablet by mouth once daily. tamsulosin (FLOMAX) 0.4 mg Take 0.4 mg by mouth. CALCIUM CARBONATE (TUMS 500 ORAL) Take by mouth as needed. senna-docusate (SENNA-S) 8.6-50 mg per tablet Take 2 tablets by mouth once daily. PRN (Patient not taking: Reported on 05/23/2025) acyclovir (ZOVIRAX) 400 mg tablet Take 400 mg by mouth twice daily. (Patient not taking: Reported on 05/12/2024) pantoprazole DR (PROTONIX) 40 mg tablet Take 40 mg by mouth once daily. (Patient not taking: Reported on 05/12/2024) lisinopril-hydroCHLOROthiazide (PRINZIDE,ZESTORETIC) 20-12.5 mg per tablet Take 1 tablet by mouth once daily. (Patient not taking: Reported on 11/11/2024) cyanocobalamin, vitamin B-12, (VITAMIN B-12 ORAL) Take 1 tablet by mouth once daily. (Patient not taking: Reported on 11/11/2024) atorvastatin (LIPITOR) 20 mg tablet Take 1 tablet by mouth once daily. (Patient not taking: Reported on 05/23/2025) iv contrast (will be provided with radiology test) CT Cardiac - No IV access, insert saline lock prior to the sedation, infusion, injection for imaging exam. Discontinue saline lock post exam. If Pt. has a central line or IVAD, may access for administration according to line specific nursing protocol. Once exam is complete flush line and de-access according to line specific nursing protocol in the CT contrast administration guidelines link. aspirin, enteric coated (ASPIRIN, ENTERIC COATED) 81 mg EC tablet Take 81 mg by mouth once daily. (Patient not taking: Reported on 05/12/2024) clopidogrel (PLAVIX) 75 mg tablet Take 75 mg by mouth once daily. (Patient not taking: Reported on 05/23/2025) iv contrast (will be provided with radiology test) CT Cardiac - No IV access, insert saline loc (more content not included)... [facility] 05-23-2025 History of Presen t illness Narrative (Elements copied from my note dated November 11, 2024, have been reviewed and updated where appropriate, and all reflect current assessment and medical decision making from today's encounter, May 23, 2025) HISTORY OF PRESENT ILLNESS: Aric Gonzalez is a 79 year old male dx in 2019 with CLL on basis of lymphocytosis, flow cytometry. Diagnosed with dr Smith [facility]. Has been observed only. Here for follow up, review of cbc. CLINICAL IMPRESSION: CLL, cbc pending RECOMMENDATION/PLAN: 1. Recheck 8-12 months. Will touch base re todays labs when thery are resulted, requests we mail them. Written and verbal health teaching given to patient, patient verbalizes understanding and agrees with treatment plan. 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 Hyperlipidemia impotence prison (current) use of aspirin Low back pain Lower extremity aneurysm 11/12/2021 Nodule of left lung 02/28/2015 NON-ALLERGIC RHINITIS NOS Obesity Occlusion and stenosis of carotid artery without mention of cerebral infarction Synovitis and tenosynovitis, unspecified Unspecified age-related cataract Unspecified macular degeneration Unspecified urinary incontinence PAST SURGICAL HISTORY Procedure Laterality Date CABG, ARTERIAL, FOUR+ 92 COLONOSCOPY FLX DX W/COLLJ SPEC WHEN PFRMD 12/04/2006 Colonoscopy ENDOVAS AAA REPR W/3-P PART 11/07/2016 ESOPHAGOGASTRODUODENOSCOPY TRANSORAL DIAGNOSTIC 10/14/13 EGD INCISION & DRAINAGE PILONIDAL CYST COMPLICATED 1974 PAST SURGICAL HISTORY OF 1985 VEIN STRIPPING REM LESIO TRUNK,ARM,LEG 1.1 -2.0CM 11/04/09 Exc. ruptured kathy cyst left upper shoulder REM LESIO TRUNK,ARM,LEG 1.1 -2.0CM 10/12/11 Exc. kathy cyst left lower back RPR UMBILICAL HRNA 5 YRS/> REDUCIBLE 10-27-16 TONSILLECTOMY PRIMARY/SECONDARY <AGE 10 Tonsillectomy FAMILY HISTORY Problem Relation Age of Onset Cancer Mother Diabetes Father Heart Sister Diabetes Sister No Known Problems Sister Social History Tobacco Use Smoking status: Former Current packs/day: 0.00 Average packs/day: 1 pack/day for 44.0 years (44.0 ttl pk-yrs) Types: Cigarettes Start date: 06/20/1963 Quit date: 06/20/2007 Years since quittin.9 Smokeless tobacco: Never Vaping Use Vaping status: Never Used Substance Use Topics Alcohol use: Yes Comment: RARELY Drug use: No ALLERGIES: ALLERGIES Allergen Reactions Carvedilol Unknown Doxycycline Intolerance Diarrhea Penicillins Hives CURRENT OUTPATIENT MEDICATIONS: lisinopril (ZESTRIL) 5 mg tablet Take 1 tablet by mouth every afternoon. isosorbide mononitrate ER (IMDUR) 60 mg 24 hr tablet Take 1 tablet by mouth once daily. tamsulosin (FLOMAX) 0.4 mg Take 0.4 mg by mouth. CALCIUM CARBONATE (TUMS 500 ORAL) Take by mouth as needed. senna-docusate (SENNA-S) 8.6-50 mg per tablet Take 2 tablets by mouth once daily. PRN (Patient not taking: Reported on 05/23/2025) acyclovir (ZOVIRAX) 400 mg tablet Take 400 mg by mouth twice daily. (Patient not taking: Reported on 05/12/2024) pantoprazole DR (PROTONIX) 40 mg tablet Take 40 mg by mouth once daily. (Patient not taking: Reported on 05/12/2024) lisinopril-hydroCHLOROthiazide (PRINZIDE,ZESTORETIC) 20-12.5 mg per tablet Take 1 tablet by mouth once daily. (Patient not taking: Reported on 11/11/2024) cyanocobalamin, vitamin B-12, (VITAMIN B-12 ORAL) Take 1 tablet by mouth once daily. (Patient not taking: Reported on 11/11/2024) atorvastatin (LIPITOR) 20 mg tablet Take 1 tablet by mouth once daily. (Patient not taking: Reported on 05/23/2025) iv contrast (will be provided with radiology test) CT Cardiac - No IV access, insert saline lock prior to the sedation, infusion, injection for imaging exam. Discontinue saline lock post exam. If Pt. has a central line or IVAD, may access for administration according to line specific nursing protocol. Once exam is complete flush line and de-access according to line specific nursing protocol in the CT contrast administration guidelines link. aspirin, enteric coated (ASPIRIN, ENTERIC COATED) 81 mg EC tablet Take 81 mg by mouth once daily. (Patient not taking: Reported on 05/12/2024) clopidogrel (PLAVIX) 75 mg tablet Take 75 mg by mouth once daily. (Patient not taking: Reported on 05/23/2025) iv contrast (will be provided with radiology test) CT Cardiac - No IV access, insert saline lock prior to the sedation, infusion, injection for imaging exam. Discontinue saline lock post exam. If Pt. has a central line or IVAD, may access for administration according to line specific nursing protocol. Once exam is complete flush line and de-access according to line specific nursing protocol in the CT contrast administration guidelines link. iv contrast (will be provided with radiology test) CT Cardiac - No IV access, insert saline lock prior to the sedation, infusion, injection for imaging exam. Discontinue saline lock post exam. If Pt. has a central line or IVAD, may access for administration according to line specific nursing protocol. Once exam is complete flush line and de-access according to line specific nursing protocol in the CT contrast administration guidelines link. REVIEW OF SYSTEMS: GENERAL: No fever, night sweats, weight loss or malaise. All other reviewed and negative other than HPI. PHYSICAL EXAMINATION: VITAL SIGNS: BP 126/77 Pulse 81 Temp (Src) 98.5 (Temporal) Ht 6' 1.5 (1.87m) Wt 263 lb 8 oz (119.5kg) SpO2 94% BMI 34.29 kg/(m^2). GENERAL APPEARANCE: Well appearing, in no acute distress, alert and oriented x3, well-hydrated, well nourished. No palpable adenopathy. I spent a total of 20 minutes on the date of the service which included preparing to see the patient, [id number] patient care, completing clinical documentation, obtaining and/or reviewing separately obtained history, performing a medically appropriate examination, ordering medications, tests, or procedures, independently interpreting results (not separately reported), and communicating results to the patient/family/caregiver. Electronically Signed: Inocencio Rainey MD May 23, 2025 documented in this encounter [facility] 05-06-2025 Telephone encounter Note Spoke w pt and this is scheduled for 05/09. Terri Mathew [facility] 05-06-2025 Miscellaneous Notes Spoke w pt and this is scheduled for 05/09. Terri Mathew ok to schedule CBC/OV with Dr. Alisha Gordon, RENET[place] Patient called stating he has a nodule on his neck that is very sore. He would like to be seen. Please advise. documented in this encounter [facility] 05-06-2025 Telephone encounter Note ok to schedule CBC/OV with Dr. Alisha Gordon, RENETTA [facility] Work Phone: 05-06-2025 Telephone encounter Note Patient called stating he has a nodule on his neck that is very sore. He would like to be seen. Please advise. [facility] Work Phone: 03-15-2025 Note HNO ID: [id number] Author: CAREY RODRIGUEZ APRN.FLAVIA Service: ? Author Type: Nurse Practitioner Type: Progress Notes Filed: 03/16/2025 16:53 Note Text: [facility] INCIDENTAL LUNG NODULE PROGRAM (Follow Up) Impression / Recommendations 1. Lung nodules (Primary) Multiple new and increasing in size lung nodules noted. They are small <6 mm. The basilar lung nodules appear inflammatory. Plan to repeat CT in 3 months. Will get PFT and pulmonary consult closer to his home. - CT CHEST WO IVCON; Future 2. Nicotine Dependence, Former: Continue to abstain from smoking cigarettes. 3. Chronic obstructive pulmonary disease, unspecified COPD type (HCC) Plan to get updated PFT and pulmonary consult. Pt is poor historian due to his memory issues. - CONSULT TO PULMONARY MEDICINE - SPIROMETRY WITH DILATOR IF OBSTRUCTED; Future - LUNG VOLUMES; Future - LUNG DIFFUSION CAPACITY (DLCO); Future ---- History of Present Illness Aric oGnzalez is a 79 year old male with a pertinent past medical history significant for History of tobacco abuse: (>30 pack-years, 17 years since quit) who is being seen as a follow up for evaluation of a lung nodule(s). Pt admits to difficulties with his memory. He does not recall why he is here for his visit. He states he has not been here for 3 years. His last OV here was 01/20/2024. the patient is a poor historian. His PCP has discussed going to assisted living. Daughter lives with him, she has seizures and does not drive. He still drives, and does not admit to getting lost, but feels that he should be driving long distances. Lives in [place]. Aric Gonzalez had a CTA abdomen/pelvis on 10/2021 for the indication of AAA. 1 nodule were detected Incidentally. The nodule of greatest concern is a Solid 13 mm nodule with a Smooth border in the Left lower lobe of the lung. Prior imaging: (Yes What type of prior imaging? CT Scan 10/06/2020 Was the nodule of concern seen on prior imaging? Yes Has the nodule of concern remained stable? Increased in Size) This nodule decreased in size on subsequent imaging, but pt had new nodules develop on 10/15/2023 CT Chest, 01/14/2024 CT Chest-4 mm RICARDO. Today's CT Chest shows increase in size of lung nodule in LLL, RLL, RML Respiratory symptoms include: SOB: Yes, sometimes Chest tightness: No Coughing: No Hemoptysis: No Wheezing: No Fever/Chills: No Recent Respiratory Infection: No Unintentional weight loss: No Last 12 Encounter Wt Readings: Date: Wt: 11/11/2024 117 kg (258 lb) 05/12/2024 120.2 kg (265 lb) 04/14/2024 129 kg (284 lb 6.3 oz) 01/20/2024 123.3 kg (271 lb 13.2 oz) 10/15/2023 117.5 kg (259 lb) 04/17/2023 119.1 kg (262 lb 8 oz) 09/13/2022 124.7 kg (275 lb) 05/15/2022 125.2 kg (276 lb 1.6 oz) 04/15/2022 125.4 kg (276 lb 8 oz) 12/01/2021 126.4 kg (278 lb 9.6 oz) 04/09/2021 124.1 kg (273 lb 8 oz) 10/09/2020 124.7 kg (275 lb)] Modified [employer] [place] Dyspnea Scale (MMRC) I stop for breath after walking about 100 yards or after a few minutes on level ground 3 Problem List, History, Medications and allergies have been reviewed from the [facility] electronic medical record and any appropriate up-dates have been made. Physical Exam BP 123/78 (BP Site: Right Arm, BP Position: Sitting, BP Cuff Size: Large Adult) Pulse 79 SpO2 96% General Appearance: Well appearing, alert, in no acute distress, well-hydrated, well nourished.. Neck: Supple, no adenopathy; thyroid symmetric, normal size Lungs: Lungs clear to auscultation. No wheezing, rhonchi, rales.. Heart: RRR without murmur, gallop, or rubs. No ectopy. Neurologic: Oriented X 3. Diagnostic Data I have personally visualized, reviewed and analyzed the findings on pulmonary function testing and radiographs. Increase in size RICARDO nodule Increase in size RLL nodule Increase in size and density RUL nodule New LLL nodules New LLL nodule RLL * * *Final Report* * * DATE OF EXAM: Jan 14 2024 1:27PM [facility] [id number] - CT CHEST WO IVCON / PROCEDURE REASON: multiple diagnoses * * * * Physician Interpretation * * * * EXAMINATION: CHEST CT WITHOUT CONTRAST CLINICAL HISTORY: Lung nodules. Technique: Spiral CT acquisition of the chest from the thoracic inlet to the upper abdomen without contrast. MQ: [id number] CT Radiation dose: Integrated Dose-length product (DLP) for this visit = 494 mGy*cm CT Dose Reduction Employed: Automated exposure control(AEC) and iterative recon Comparison: CT chest on 10/15/2023 RESULT: Limitations: None. Lines, tubes, and devices: None. Lung parenchyma and airways: The central airways are patent. There are multiple nodular densities visualized in the bilateral lungs. For example, there are nodular densities in the right lung measuring up to 1 cm, series (more content not included)... [facility] 03-15-2025 Miscellaneous Notes Radiology Service Progress Note PATIENT NAME: Aric Gonzalez DATE OF SERVICE: March 15, 2025 TIME: 12:01 PM PATIENT IDENTITY VERIFICATION COMPLETED USING TWO (2) IDENTIFIERS: Name and Date of confirmed by patient verbally. FALL SCREENING: Has the patient had 2 falls in the last year or 1 fall with injury or currently using an Ambulatory Assistive Device (Walker, Cane, Wheelchair, Crutches, etc.)? No PATIENT GENDER DATA: Assigned male at PATIENT RELEVANT IMPLANT DATA REVIEWED: Not Applicable PATIENT PRESENTS WITH AN IMPLANTABLE OR ATTACHED EQUIPMENT OPERATING ENGINEER: No RADIOLOGY DEPARTMENT: CT; Exam(s) Completed: Chest PERIPHERAL IV DATA: Not applicable SIGNED BY: ÁNGEL Edmond March 15, 2025 12:01 PM documented in this encounter [facility] 03-15-2025 Progress note Formatting of t his note might be different from the original. Radiology Service Progress Note PATIENT NAME: Aric Gonzalez DATE OF SERVICE: March 15, 2025 TIME: 12:01 PM PATIENT IDENTITY VERIFICATION COMPLETED USING TWO (2) IDENTIFIERS: Name and Date of confirmed by patient verbally. FALL SCREENING: Has the patient had 2 falls in the last year or 1 fall with injury or currently using an Ambulatory Assistive Device (Walker, Cane, Wheelchair, Crutches, etc.)? No PATIENT GENDER DATA: Assigned male at PATIENT RELEVANT IMPLANT DATA REVIEWED: Not Applicable PATIENT PRESENTS WITH AN IMPLANTABLE OR ATTACHED EQUIPMENT OPERATING ENGINEER: No RADIOLOGY DEPARTMENT: CT; Exam(s) Completed: Chest PERIPHERAL IV DATA: Not applicable SIGNED BY: ÁNGEL Edmond March 15, 2025 12:01 PM [facility] 03-07-2025 Evaluation note Diagnosis Onset Date Resolution BPH (benign prostatic hyperplasia) acute March 07, 2025 9:55am Cervical myelopathy acute March 07, 2025 9:55am History of leukemia acute March 07, 2025 9:55am Memory loss acute March 07, 025 9:55am S/P cervical spinal fusion acute March 07, 2025 9:55am 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 Author Type: Police Captain Senior Type: Progress Notes Filed: 01/31/2025 10:49 Note Text: Sent [facility]uling [facility] History of Present illness Narrative* Felicia Quinn HUC - 01/31/2025 10:49 AM EDT Sent to Scheduling Waiting for CT order documented [facility] NotePatient Outreach (NANCYMMVenkatesh) ARIC GONZALEZ ([id number]) 1945 M Date Time Provider Department 01/31/25 FELICIA QUINN During your visit today, we recorded the following information about you: Felicia Quinn HUC 01/31/2025 10:49 AM Signed Sent to Scheduling Waiting for CT order Allergies As of Date: 01/31/2025 Noted Allergy Reaction CARVEDILOL 05/16/2021 16 - Unknown DOXYCYCLINE 12/11/2016 5 - Intolerance Comments: Diarrhea PENICILLINS 07/18/2005 4 - Hives Date Reviewed: 11/11/2024 Reviewed by: Gabi Rao LPN - Fully Assessed Prescriptions as of 01/31/2025 - lisinopril (ZESTRIL) 5 mg tablet Take 1 tablet by mouth every afternoon. - senna-docusate (SENNA-S) 8.6-50 mg per tablet Take 2 tablets by mouth once daily. PRN - acyclovir (ZOVIRAX) 400 mg tablet Take 400 mg by mouth twice daily. - pantoprazole DR (PROTONIX) 40 mg tablet Take 40 mg by mouth once daily. - isosorbide mononitrate ER (IMDUR) 60 mg 24 hr tablet Take 1 tablet by mouth once daily. - tamsulosin (FLOMAX) 0.4 mg Take 0.4 mg by mouth. - lisinopril-hydroCHLOROthiazide (PRINZIDE,ZESTORETIC) 20-12.5 mg per tablet Take 1 tablet by mouth once daily. - cyanocobalamin, vitamin B-12, (VITAMIN B-12 ORAL) Take 1 tablet by mouth once daily. - atorvastatin (LIPITOR) 20 mg tablet Take 1 tablet by mouth once daily. - iv contrast (will be provided with radiology test) CT Cardiac - No IV access, insert saline lock prior to the sedation, infusion, injection for imaging exam. Discontinue saline lock post exam. If Pt. has a central line or IVAD, may access for administration according to line specific nursing protocol. Once exam is complete flush line and de-access according to line specific nursing protocol in the CT contrast administration guidelines link. - aspirin, enteric coated (ASPIRIN, ENTERIC COATED) 81 mg EC tablet Take 81 mg by mouth once daily. - clopidogrel (PLAVIX) 75 mg tablet Take 75 mg by mouth once daily. - iv contrast (will be provided with radiology test) CT Cardiac - No IV access, insert saline lock prior to the sedation, infusion, injection for imaging exam. Discontinue saline lock post exam. If Pt. has a central line or IVAD, may access for administration according to line specific nursing protocol. Once exam is complete flush line and de-access according to line specific nursing protocol in the CT contrast administration guidelines link. - iv contrast (will be provided with radiology test) CT Cardiac - No IV access, insert saline lock prior to the sedation, infusion, injection for imaging exam. Discontinue saline lock post exam. If Pt. has a central line or IVAD, may access for administration according to line specific nursing protocol. Once exam is complete flush line and de-access according to line specific nursing protocol in the CT contrast administration guidelines link. - CALCIUM CARBONATE (TUMS 500 ORAL) Take by mouth as needed. Problem List As Of Date 01/31/2025 Noted Resolved Hyperlipidemia LDL goal <100 [E78.5] 07/18/2005 ASHD (arteriosclerotic heart disease) [I25.10] 07/18/2005 BENIGN HYPERTENSION [I10] 07/18/2005 Tobacco use disorder [F17.200] 07/18/2005 02/27/2016 Acute peptic ulcer, unspecified site, without m* 02/16/2015 Recurrent major depressive disorder (HCC) [F33.*06/24/2007 02/24/2017 Other seborrheic keratosis [L82.1] 06/24/2007 02/27/2016 Sebaceous cyst [L72.3] 11/04/2009 02/27/2016 AAA (abdominal aortic aneurysm) without rupture*08/24/2013 Liver lesion [K76.9] 08/24/2013 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] 04/29/2016 Erectile dysfunction [N52.9] 04/29/2016 Umbilical hernia without obstruction or gangren*09/10/2016 02/24/2017 Spondylosis of lumbar region without myelopathy*03/25/2018 Obesity, Class II, BMI 35-39.9 [E66.812] 08/04/2019 DDD (degenerative disc disease), cervical [M50.*03/15/2020 Weakness of right lower extremity [R29.898] 07/20/2020 Leg pain, bilateral [M79.604, M79.605] 08/17/2020 Bilateral carotid artery stenosis [I65.23] 11/12/2021 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] 11/12/2021 Chronic lymphocytic leukemia of B-cell type not*04/16/2022 Thrombocytopenia (HCC) [D69.6] 04/16/2022 Encounter Status:Closed by FELICIA QUINN on 01/31/25[facility] Telephone encounter Note* Telephone Encounter - Felicia Quinn HUC - 01/27/2025 4:29 PM EST Provider: Jennifer Appointment Type: Xpcw-pk-Jzke (In Person) Location: Patient preference Visit Type: ESTABLISHED Diagnosis: Incidental lung nodule Appointment Time Frame: Next available Testing Needed: TESTS: CT Chest [facility]03-06-2025 Miscellaneous Notes* Telephone Encounter - Felicia Quinn HUC - 01/27/2025 4:29 PM EST Provider: Jennifer Appointment Type: Btyj-ln-Dshi (In Person) Location: Patient preference Visit Type: ESTABLISHED Diagnosis: Incidental lung nodule Appointment Time Frame: Next available Testing Needed: TESTS: CT Chest documented in this encounterMet[facility]25 NoteHNO ID: [id number] Author: FELICIA QUINN HUC Service: ? Author Type: Police Captain Senior Type: Progress Notes Filed: 01/27/2025 16:28 Note Text: Follow Up Diagnosis: Lung Nodule Recommendation: CT Scan Follow up Date: 02/14/2025 Follow-Up Scheduled: No Pulmonary Follow-Up Type: Lung Nodule Surveillance Enrolled in Lung Nodule program: Yes Lung Nodule Program Location: [facility] Appointment cancelled. Letter sent. Resent to appointment scheduler.[facility] History of Present illness Narrative* Felicia Quinn HUC - 01/27/2025 4:27 PM EST Follow Up Diagnosis: Lung Nodule Recommendation: CT Scan Follow up Date: 02/14/2025 Follow-Up Scheduled: No Pulmonary Follow-Up Type: Lung Nodule Surveillance Enrolled in Lung Nodule program: Yes Lung Nodule Program Location: [facility] Appointment cancelled. Letter sent. Resent to appointment scheduler. documented in this encounter[facility] NotePatient Outreach (PULMMN) ARIC GONZALEZ ([id number]) 1945 M Date Time Provider Department 01/27/25 FELICIA QUINN During your visit today, we recorded the following information about you: Felicia Quinn HUC 01/27/2025 4:28 PM Signed Follow Up Diagnosis: Lung Nodule Recommendation: CT Scan Follow up Date: 02/14/2025 Follow-Up Scheduled: No Pulmonary Follow-Up Type: Lung Nodule Surveillance Enrolled in Lung Nodule program: Yes Lung Nodule Program Location: [facility] Appointment cancelled. Letter sent. Resent to appointment scheduler. Allergies As of Date: 01/27/2025 Noted Allergy Reaction CARVEDILOL 05/16/2021 16 - Unknown DOXYCYCLINE 12/11/2016 5 - Intolerance Comments: Diarrhea PENICILLINS 07/18/2005 4 - Hives Date Reviewed: 11/11/2024 Reviewed by: Gabi Rao LPN - Fully Assessed Prescriptions as of 01/27/2025 - lisinopril (ZESTRIL) 5 mg tablet Take 1 tablet by mouth every afternoon. - senna-docusate (SENNA-S) 8.6-50 mg per tablet Take 2 tablets by mouth once daily. PRN - acyclovir (ZOVIRAX) 400 mg tablet Take 400 mg by mouth twice daily. - pantoprazole DR (PROTONIX) 40 mg tablet Take 40 mg by mouth once daily. - isosorbide mononitrate ER (IMDUR) 60 mg 24 hr tablet Take 1 tablet by mouth once daily. - tamsulosin (FLOMAX) 0.4 mg Take 0.4 mg by mouth. - lisinopril-hydroCHLOROthiazide (PRINZIDE,ZESTORETIC) 20-12.5 mg per tablet Take 1 tablet by mouth once daily. - cyanocobalamin, vitamin B-12, (VITAMIN B-12 ORAL) Take 1 tablet by mouth once daily. - atorvastatin (LIPITOR) 20 mg tablet Take 1 tablet by mouth once daily. - iv contrast (will be provided with radiology test) CT Cardiac - No IV access, insert saline lock prior to the sedation, infusion, injection for imaging exam. Discontinue saline lock post exam. If Pt. has a central line or IVAD, may access for administration according to line specific nursing protocol. Once exam is complete flush line and de-access according to line specific nursing protocol in the CT contrast administration guidelines link. - aspirin, enteric coated (ASPIRIN, ENTERIC COATED) 81 mg EC tablet Take 81 mg by mouth once daily. - clopidogrel (PLAVIX) 75 mg tablet Take 75 mg by mouth once daily. - iv contrast (will be provided with radiology test) CT Cardiac - No IV access, insert saline lock prior to the sedation, infusion, injection for imaging exam. Discontinue saline lock post exam. If Pt. has a central line or IVAD, may access for administration according to line specific nursing protocol. Once exam is complete flush line and de-access according to line specific nursing protocol in the CT contrast administration guidelines link. - iv contrast (will be provided with radiology test) CT Cardiac - No IV access, insert saline lock prior to the sedation, infusion, injection for imaging exam. Discontinue saline lock post exam. If Pt. has a central line or IVAD, may access for administration according to line specific nursing protocol. Once exam is complete flush line and de-access according to line specific nursing protocol in the CT contrast administration guidelines link. - CALCIUM CARBONATE (TUMS 500 ORAL) Take by mouth as needed. Problem List As Of Date 01/27/2025 Noted Resolved Hyperlipidemia LDL goal <100 [E78.5] 07/18/2005 ASHD (arteriosclerotic heart disease) [I25.10] 07/18/2005 BENIGN HYPERTENSION [I10] 07/18/2005 Tobacco use disorder [F17.200] 07/18/2005 02/27/2016 Acute peptic ulcer, unspecified site, without m* 02/16/2015 Recurrent major depressive disorder (HCC) [F33.*06/24/2007 02/24/2017 Other seborrheic keratosis [L82.1] 06/24/2007 02/27/2016 Sebaceous cyst [L72.3] 11/04/2009 02/27/2016 AAA (abdominal aortic aneurysm) without rupture*08/24/2013 Liver lesion [K76.9] 08/24/2013 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] 04/29/2016 Erectile dysfunction [N52.9] 04/29/2016 Umbilical hernia without obstruction or gangren*09/10/2016 02/24/2017 Spondylosis of lumbar region without myelopathy*03/25/2018 Obesity, Class II, BMI 35-39.9 [E66.812] 08/04/2019 DDD (degenerative disc disease), cervical [M50.*03/15/2020 Weakness of right lower extremity [R29.898] 07/20/2020 Leg pain, bilateral [M79.604, M79.605] 08/17/2020 Bilateral carotid artery stenosis [I65.23] 11/12/2021 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] 11/12/2021 Chronic lymphocytic leukemia of B-cell type not*04/16/2022 Thrombocytopenia (HCC) [D69.6] 04/16/2022 Letter Text Encounter Status:Closed by FELICIA QUINN on 01/27/25[facility] 01-[facility] Telephone encounter Note* Telephone Encounter - Tyesha Wills - 01/21/2025 10:38 AM EST First Attempt - Called patient and left a vm [facility]02-28-2025 Miscellaneous Notes* Telephone Encounter - Tyesha Wills - 01/21/2025 10:38 AM EST First Attempt - Called patient and left a vm * Telephone Encounter - Tyesha Wills - 01/21/2025 10:37 AM EST Patient cancelled his CT prior to his appt. Appt is still on for me. It might have been an error tocancel it. Cora Clementea documented in this encounter[facility] Telephone encounter Note * Telephone Encounter - Tyesha Wills - 01/21/2025 10:37 AM EST Patient cancelled his CT prior to his appt. Appt is still on for me. It might have been an error tocancel it. Cora Pascal [facility]12-19-2024 NoteHNO ID: [id number] Author: INOCENCIO RAINEY MD Service: ? Author Type: Physician Type: Progress Notes Filed: 11/11/2024 12:37 Note Text: (Elements copied from my note dated May 12, 2024, have been reviewed and updated where appropriate, and all reflect current assessment and medical decision making from today's encounter, November 11, 2024) HISTORY OF PRESENT ILLNESS: Aric Gonzalez is a 78 year old male dx in 2019 with CLL on basis of lymphocytosis, flow cytometry. Diagnosed with dr Smith CCRaulito. Has been observed only. Here for follow up, review of cbc. CLINICAL IMPRESSION: CLL, overall stable RECOMMENDATION/PLAN: 1. Recheck 8 months. Written and verbal health teaching given to patient, patient verbalizes understanding and agrees with treatment plan. 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 Low back pain Lower extremity aneurysm (HCC) 11/12/2021 Nodule of left lung 02/28/2015 NON-ALLERGIC RHINITIS NOS Obesity Occlusion and stenosis of carotid artery without mention of cerebral infarction Synovitis and tenosynovitis, unspecified Unspecified age-related cataract Unspecified macular degeneration Unspecified urinary incontinence PAST SURGICAL HISTORY Procedure Laterality Date CABG, ARTERIAL, FOUR+ 92 COLONOSCOPY FLX DX W/COLLJ SPEC WHEN PFRMD 12/04/2006 Colonoscopy ENDOVAS AAA REPR W/3-P PART 11/07/2016 ESOPHAGOGASTRODUODENOSCOPY TRANSORAL DIAGNOSTIC 10/14/13 EGD INCISION AND DRAINAGE PILONIDAL CYST COMPLICATED 1973 PAST SURGICAL HISTORY OF 1984 VEIN STRIPPING REM LESIO TRUNK,ARM,LEG 1.1 -2.0CM 11/04/09 Exc. ruptured kathy cyst left upper shoulder REM LESIO TRUNK,ARM,LEG 1.1 -2.0CM 10/12/11 Exc. kathy cyst left lower back RPR UMBILICAL HRNA 5 YRS/> REDUCIBLE 10-27-16 TONSILLECTOMY PRIMARY/SECONDARY Tonsillectomy FAMILY HISTORY Problem Relation Age of Onset Cancer Mother Diabetes Father Heart Sister Diabetes Sister No Known Problems Sister Social History Tobacco Use Smoking status: Former Current packs/day: 0.00 Average packs/day: 1 pack/day for 44.0 years (44.0 ttl pk-yrs) Types: Cigarettes Start date: 06/20/1963 Quit date: 06/20/2007 Years since quittin.4 Smokeless tobacco: Never Vaping Use Vaping status: Never Used Substance Use Topics Alcohol use: Yes Comment: RARELY Drug use: No ALLERGIES: ALLERGIES Allergen Reactions Carvedilol Unknown Doxycycline Intolerance Diarrhea Penicillins Hives CURRENT OUTPATIENT MEDICATIONS: lisinopril (ZESTRIL) 5 mg tablet Take 1 tablet by mouth every afternoon. senna-docusate (SENNA-S) 8.6-50 mg per tablet Take 2 tablets by mouth once daily. PRN isosorbide mononitrate ER (IMDUR) 60 mg 24 hr tablet Take 1 tablet by mouth once daily. tamsulosin (FLOMAX) 0.4 mg Take 0.4 mg by mouth. atorvastatin (LIPITOR) 20 mg tablet Take 1 tablet by mouth once daily. CALCIUM CARBONATE (TUMS 500 ORAL) Take by mouth as needed. acyclovir (ZOVIRAX) 400 mg tablet Take 400 mg by mouth twice daily. (Patient not taking: Reported on 05/12/2024) pantoprazole DR (PROTONIX) 40 mg tablet Take 40 mg by mouth once daily. (Patient not taking: Reported on 05/12/2024) lisinopril-hydroCHLOROthiazide (PRINZIDE,ZESTORETIC) 20-12.5 mg per tablet Take 1 tablet by mouth once daily. (Patient not taking: Reported on 11/11/2024) cyanocobalamin, vitamin B-12, (VITAMIN B-12 ORAL) Take 1 tablet by mouth once daily. (Patient not taking: Reported on 11/11/2024) iv contrast (will be provided with radiology test) CT Cardiac - No IV access, insert saline lock prior to the sedation, infusion, injection for imaging exam. Discontinue saline lock post exam. If Pt. has a central line or IVAD, may access for administration according to line specific nursing protocol. Once exam is complete flush line and de-access according to line specific nursing protocol in the CT contrast administration guidelines link. aspirin, enteric coated (ASPIRIN, ENTERIC COATED) 81 mg EC tablet Take 81 mg by mouth once daily. (Patient not taking: Reported on 05/12/2024) clopidogrel (PLAVIX) 75 mg tablet Take 75 mg by mouth once daily. (Patient not taking: Reported on 01/20/2024) iv contrast (will be provided with radiology test) CT Cardiac - No IV access, insert saline lock prior to the sedation, infusion, injection for imaging exam. Discontinue saline lock post exam. If Pt. has a central line or IVAD, may access for administration according to line specific nursing protoc (more content not included)...[facility]12-19-2024 History of Present illness Narrative* Inocencio Rainey MD - 11/11/2024 12:16 PM EST (Elements copied from my note dated May 12, 2024, have been reviewed and updated where appropriate, and all reflect current assessment and medical decision making from today's encounter, November 11, 2024) HISTORY OF PRESENT ILLNESS: Aric Gonzalez is a 78 year old male dx in 2019 with CLL on basis of lymphocytosis, flow cytometry. Diagnosed with dr Smith [facility]. Has been observed only. Here for follow up, review of cbc. CLINICAL IMPRESSION: CLL, overall stable RECOMMENDATION/PLAN: 1. Recheck 8 months. Written and verbal health teaching given to patient, patient verbalizes understanding and agrees with treatment plan. 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 Low back pain Lower extremity aneurysm (HCC) 11/12/2021 Nodule of left lung 02/28/2015 NON-ALLERGIC RHINITIS NOS Obesity Occlusion and stenosis of carotid artery without mention of cerebral infarction Synovitis and tenosynovitis, unspecified Unspecified age-related cataract Unspecified macular degeneration Unspecified urinary incontinence PAST SURGICAL HISTORY Procedure Laterality Date CABG, ARTERIAL, FOUR+ 92 COLONOSCOPY FLX DX W/COLLJ SPEC WHEN PFRMD 12/04/2006 Colonoscopy ENDOVAS AAA REPR W/3-P PART 11/07/2016 ESOPHAGOGASTRODUODENOSCOPY TRANSORAL DIAGNOSTIC 10/14/13 EGD INCISION & DRAINAGE PILONIDAL CYST COMPLICATED 1974 PAST SURGICAL HISTORY OF 1984 VEIN STRIPPING REM LESIO TRUNK,ARM,LEG 1.1 -2.0CM 11/04/09 Exc. ruptured kathy cyst left upper shoulder REM LESIO TRUNK,ARM,LEG 1.1 -2.0CM 10/12/11 Exc. kathy cyst left lower back RPR UMBILICAL HRNA 5 YRS/> REDUCIBLE 09-19-16 TONSILLECTOMY PRIMARY/SECONDARY <AGE 10 Tonsillectomy FAMILY HISTORY Problem Relation Age of Onset Cancer Mother Diabetes Father Heart Sister Diabetes Sister No Known Problems Sister Social History Tobacco Use Smoking status: Former Current packs/day: 0.00 Average packs/day: 1 pack/day for 44.0 years (44.0 ttl pk-yrs) Types: Cigarettes Start date: 06/20/1963 Quit date: 06/20/2007 Years since quittin.4 Smokeless tobacco: Never Vaping Use Vaping status: Never Used Substance Use Topics Alcohol use: Yes Comment: RARELY Drug use: No ALLERGIES: ALLERGIES Allergen Reactions Carvedilol Unknown Doxycycline Intolerance Diarrhea Penicillins Hives CURRENT OUTPATIENT MEDICATIONS: lisinopril (ZESTRIL) 5 mg tablet Take 1 tablet by mouth every afternoon. senna-docusate (SENNA-S) 8.6-50 mg per tablet Take 2 tablets by mouth once daily. PRN isosorbide mononitrate ER (IMDUR) 60 mg 24 hr tablet Take 1 tablet by mouth once daily. tamsulosin (FLOMAX) 0.4 mg Take 0.4 mg by mouth. atorvastatin (LIPITOR) 20 mg tablet Take 1 tablet by mouth once daily. CALCIUM CARBONATE (TUMS 500 ORAL) Take by mouth as needed. acyclovir (ZOVIRAX) 400 mg tablet Take 400 mg by mouth twice daily. (Patient not taking: Reported on 05/12/2024) pantoprazole DR (PROTONIX) 40 mg tablet Take 40 mg by mouth once daily. (Patient not taking: Reported on 05/12/2024) lisinopril-hydroCHLOROthiazide (PRINZIDE,ZESTORETIC) 20-12.5 mg per tablet Take 1 tablet by mouth once daily. (Patient not taking: Reported on 11/11/2024) cyanocobalamin, vitamin B-12, (VITAMIN B-12 ORAL) Take 1 tablet by mouth once daily. (Patient not taking: Reported on 11/11/2024) iv contrast (will be provided with radiology test) CT Cardiac - No IV access, insert saline lock prior to the sedation, infusion, injection for imaging exam. Discontinue saline lock post exam. If Pt.has a central line or IVAD, may access for administration according to line specific nursing protocol. Once exam is complete flush line and de-access according to line specific nursing protocol in the CT contrast administration guidelines link. aspirin, enteric coated (ASPIRIN, ENTERIC COATED) 81 mg EC tablet Take 81 mg by mouth once daily. (Patient not taking: Reported on 05/12/2024) clopidogrel (PLAVIX) 75 mg tablet Take 75 mg by mouth once daily. (Patient not taking: Reported on 01/20/2024) iv contrast (will be provided with radiology test) CT Cardiac - No IV access, insert saline lock prior to the sedation, infusion, injection for imaging exam. Discontinue saline lock post exam. If Pt.has a central line or IVAD, may access for administration according to line specific nursing protocol. Once exam is complete flush line and de-access according to line specific nursing protocol in the CT contrast administration guidelines link. iv contrast (will be provided with radiology test) CT Cardiac - No IV access, insert saline lock prior to the sedation, infusion, injection for imaging exam. Discontinue saline lock post exam. If Pt.has a central line or IVAD, may access for administration according to line specific nursing protocol. Once exam is complete flush line and de-access according to line specific nursing protocol in the CT contrast administration guidelines link. REVIEW OF SYSTEMS: GENERAL: No fever, night sweats, weight loss or malaise. All other reviewed and negative other than HPI. PHYSICAL EXAMINATION: VITAL SIGNS: BP 155/88 Pulse 82 Temp 98.5 Wt 258 lb (117.0kg) SpO2 96% GENERAL APPEARANCE: Well appearing, in no acute distress, alert and oriented x3, well-hydrated, well nourished. No palpable adenopathy. I spent a total of 30 minutes on the date of the service which included preparing to see the patient, [id number] patient care, completing clinical documentation, obtaining and/or reviewing separately obtained history, performing a medically appropriate examination, ordering medications, tests, or procedures, independently interpreting results (not separately reported), and communicating resultsto the patient/family/caregiver. Electronically Signed: Inocencio Rainey MD November 11, 2024 * Gabi Rao LPN - 11/11/2024 11:52 AM EST Est. Pt, discuss recent CBC, 6 month F/U Gabi Rao LPN documented in this encounterMet[facility] NoteHNO ID: [id number] Author: GABI RAO LPN Service: ? Author Type: LICENSED NURSE Type: Progress Notes Filed: 11/11/2024 12:37 Note Text: Est. Pt, discuss recent CBC, 6 month [facility]07[facility]31-[facility]06-19-2024 History of Present illness Narrative* Inocencio Rainey MD - 05/12/2024 1:21 PM EDT HISTORY OF PRESENT ILLNESS: Aric Gonzalez is a 78 year old male dx in 2019 with CLL on basis of lymphocytosis, flow cytometry. Here for follow up, review of cbc. CLINICAL IMPRESSION: CLL, overall stable RECOMMENDATION/PLAN: 1. Recheck 6 months, also checking FISH testing Written and verbal health teaching given to patient, patient verbalizes understanding and agrees with treatment plan. 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 Low back pain Lower extremity aneurysm (HCC) 11/12/2021 Nodule of left lung 02/28/2015 NON-ALLERGIC RHINITIS NOS Obesity Occlusion and stenosis of carotid artery without mention of cerebral infarction Synovitis and tenosynovitis, unspecified Unspecified age-related cataract Unspecified macular degeneration Unspecified urinary incontinence PAST SURGICAL HISTORY Procedure Laterality Date CABG, ARTERIAL, FOUR+ 92 COLONOSCOPY FLX DX W/COLLJ SPEC WHEN PFRMD 12/04/2006 Colonoscopy ENDOVAS AAA REPR W/3-P PART 11/07/2016 ESOPHAGOGASTRODUODENOSCOPY TRANSORAL DIAGNOSTIC 10/14/13 EGD INCISION & DRAINAGE PILONIDAL CYST COMPLICATED 1974 PAST SURGICAL HISTORY OF 1984 VEIN STRIPPING REM LESIO TRUNK,ARM,LEG 1.1 -2.0CM 11/04/09 Exc. ruptured kathy cyst left upper shoulder REM LESIO TRUNK,ARM,LEG 1.1 -2.0CM 10/12/11 Exc. kathy cyst left lower back RPR UMBILICAL HRNA 5 YRS/> REDUCIBLE 09-19-16 TONSILLECTOMY PRIMARY/SECONDARY <AGE 10 Tonsillectomy FAMILY HISTORY Problem Relation Age of Onset Cancer Mother Diabetes Father Heart Sister Diabetes Sister No Known Problems Sister Social History Tobacco Use Smoking status: Former Packs/day: 1.00 Years: 44.00 Additional pack years: 0.00 Total pack years: 44.00 Types: Cigarettes Quit date: 06/20/2007 Years since quittin.9 Smokeless tobacco: Never Vaping Use Vaping Use: Never used Substance Use Topics Alcohol use: Yes Comment: RARELY Drug use: No ALLERGIES: ALLERGIES Allergen Reactions Carvedilol Unknown Doxycycline Intolerance Diarrhea Penicillins Hives CURRENT OUTPATIENT MEDICATIONS: isosorbide mononitrate ER (IMDUR) 60 mg 24 hr tablet Take 1 tablet by mouth once daily. tamsulosin (FLOMAX) 0.4 mg Take 0.4 mg by mouth once daily. cyanocobalamin, vitamin B-12, (VITAMIN B-12 ORAL) Take 1 tablet by mouth once daily. atorvastatin (LIPITOR) 20 mg tablet Take 1 tablet by mouth once daily. CALCIUM CARBONATE (TUMS 500 ORAL) Take by mouth as needed. acyclovir (ZOVIRAX) 400 mg tablet Take 400 mg by mouth twice daily. (Patient not taking: Reported on 05/12/2024) pantoprazole DR (PROTONIX) 40 mg tablet Take 40 mg by mouth once daily. (Patient not taking: Reported on 05/12/2024) lisinopril-hydroCHLOROthiazide (PRINZIDE,ZESTORETIC) 20-12.5 mg per tablet Take 1 tablet by mouth once daily. iv contrast (will be provided with radiology test) CT Cardiac - No IV access, insert saline lock prior to the sedation, infusion, injection for imaging exam. Discontinue saline lock post exam. If Pt.has a central line or IVAD, may access for administration according to line specific nursing protocol. Once exam is complete flush line and de-access according to line specific nursing protocol in the CT contrast administration guidelines link. aspirin, enteric coated (ASPIRIN, ENTERIC COATED) 81 mg EC tablet Take 81 mg by mouth once daily. (Patient not taking: Reported on 05/12/2024) clopidogrel (PLAVIX) 75 mg tablet Take 75 mg by mouth once daily. (Patient not taking: Reported on 01/20/2024) iv contrast (will be provided with radiology test) CT Cardiac - No IV access, insert saline lock prior to the sedation, infusion, injection for imaging exam. Discontinue saline lock post exam. If Pt.has a central line or IVAD, may access for administration according to line specific nursing protocol. Once exam is complete flush line and de-access according to line specific nursing protocol in the CT contrast administration guidelines link. iv contrast (will be provided with radiology test) CT Cardiac - No IV access, insert saline lock prior to the sedation, infusion, injection for imaging exam. Discontinue saline lock post exam. If Pt.has a central line or IVAD, may access for administration according to line specific nursing protocol. Once exam is complete flush line and de-access according to line specific nursing protocol in the CT contrast administration guidelines link. REVIEW OF SYSTEMS: GENERAL: No fever, night sweats, weight loss or malaise. All other reviewed and negative other than HPI. PHYSICAL EXAMINATION: VITAL SIGNS: BP 170/99 Pulse 79 Temp (Src) 98.6 (Temporal) Wt 265 lb (120.2kg) SpO2 96% GENERAL APPEARANCE: Well appearing, in no acute distress, alert and oriented x3, well-hydrated, well nourished. No palpable adenopathy. I spent a total of 30 minutes on the date of the service which included preparing to see the patient, [id number] patient care, completing clinical documentation, obtaining and/or reviewing separately obtained history, performing a medically appropriate examination, ordering medications, tests, or procedures, independently interpreting results (not separately reported), and communicating resultsto the patient/family/caregiver. Electronically Signed: Inocencio Rainey MD May 12, 2024 1:21 PM documented in this encounterMet[facility]05-02-2024 Discharge summary Author Darien Nesbitt [facility] March 25, 2024 2:26pm Note Date/Time March 25, 2024 1:00pm [facility] Physical Therapy [facility] [address] [place] [address] / REHABILITATION SERVICES DISCHARGE SUMMARY MR#: [id number] Acct: [id number] Name: ARIC GONZALEZ Rep #: [id number] : 1945 78 From: Cert. ALONZO CarballoT, OCS Referring Dr.: Dr. Sylvester Javier MD Status: REG R Insurance: [facility] SELF PAY INSURANCE Discharge Summary D/C summary: It has been my pleasure to treat ARIC GONZALEZ referred by Dr. Sylvester Javier MD, with the diagnosis of LEFT SHOULDER PAIN,RIGHT SHOULDER PAIN,PRIMARY OSTEOARTHRITIS LEFT & RIGHT for a total of 10 visit(s). Discharge Date: 03/25/24 Please see the following information for a summary of their discharge status. Subjective Subjective: Ready for d/c ready to go on own Pain Left Shoulder: Pain Intensity (Out of 10): 0 Right Shoulder: Pain Intensity (Out of 10): 0 Overall Improvement % Improvement: 100 Objective Objective/Function: POSTURE: mild forward posture head forward ,rounded rounded shoulders PALAPTION: unremarkable NEURO: c/o paresthesia/tingling in hands AROM: shoulder flexion left 80 degrees ,right 120 degrees ,abduction left 20 degrees ,right 50 degrees , ER left 60 degrees ,right 60 degrees IR S2 CAPSULAR G-H MOBILITY: mod/severe limited MMT: RTC 4/5 ,DELTOID 4-/5 Goals Goal 1:: Patient to be I with HEP for shoulder Goal 2:: Patient to demonstrate 40-50% improvement with less shoulder pain and improved function. Goal 3:: Patient to improve shoulder AROM by 10 degrees for flexion/abduction and ER to improve ADLS and housework tasks with [place] activities Goal 4:: Patient to be able to use arm with ADLS self hygiene with min limitations Goal 5:: Patient to improve quick dash by 5 points to improve QOL Plan Plan: D/C TO HEP D/C Information Discharge Comments: HEP d/c sentence: If there are questions or concerns regarding this patient's physical therapy, please feel free to call me at [phone]. Thank you for the referral of thispatient. Sincerely, Darien Nesbitt PT, Cert MDT, OCS Balance/Gait/Functional tests Balance/Special Test Scores Quick DASH Score: 70.4525 Improvement % Improvement: 100 <Electronically signed by Fede Mcpherson PT. T, OCS> 03/25/24 1426 CC: Dr. Sylvester Javier MD ~ JOSE Signed [facility] Work Phone: [phone]) 170-624903-04-2024 Miscellaneous Notes* Telephone Encounter - Genesis Elias RN - 01/26/2024 10:26 AM EST 01/26/24: Grace mckinley's PET scan from [facility]. [phone]. Spoke with Dot; no PET. LVM for patient to clarify location. 01/26/24: Pat called back; says he has short-term memory loss. He insists on body scan at [place], but it wasonly a urology exam. I did find a C/A/P done in [place], [place] on 11/27/22. . Faxed remariam to: [phone]; Agnieszka will push. Genesis Elias RN Respiratory [facility] documented in this encounterMet[facility]03-01-2024 History of Present illness Narrative* Marilyn Chan APRN.[facility] - 01/23/2024 1:24 PM EST Images from the original note were not included. TEACHING PROVIDER (Physician/DELON/SUE) NOTE OF PERSONAL INVOLVEMENT IN CARE: I have personally seen and examined the patient and performed the medical decision-making components. I have reviewed the Annamaria Nina PA-C 's documentation and verified the findings in the note as written. Any additions or changes are noted in bold/italics. ASSESSMENT/PLAN: 1. Lung nodules - ICD9: 793.19, ICD10: R91.8 CT chest 01/14/2024 showed previous LLL 7-8 mm nodule # 184, LLL 5 mm nodule # 169, RLL 6 mm nodule,RLL 7 mm nodule # [address] chest 09/2023 over 3 months, and new since CT 09/2023. Additional RLL nodules adjacent to each other, LLL medial nodule # [address] 09/2020. New RICARDO 4 mm nodule noted on recent CT 12/2023. It was mentioned that patient completed full body scan a week ago at [facility], no report noted in care everywhere. Plan; Recommended CT surveillance in one year. - CT CHEST WO IVCON CT chest 01/14/[address] chest 09/2023, 08/2022, CTA chest 09/2020 RLL nodules unchanged since prior CT I spent a total of 30 minutes on the date of the service which included preparing to see the patient, [id number] patient care, completing clinical documentation, obtaining and/or reviewing separately obtained history, performing a medically appropriate examination, counseling and educating the pat ient/family/caregiver, ordering medications, tests, or procedures, communicating with other HCPs (not separately reported), and communicating results to the patient/family/caregiver. Signature: Marilyn Chan APRN.CNP Date: 01/23/2024 Time: 1:24 PM * Marilyn Chan APRN.CNP - 01/20/2024 10:21 AM EST Images from the original note were not included. [facility] INCIDENTAL LUNG NODULE PROGRAM (Follow Up) Assessment / Plan 1. Lung nodules - previous nodules have remained stable and/or decreased in size when compared to 10/15/23 imaging.New 4mm nodule in the lingula on recent scan. - Plan: Follow up in [address] Chest. -Patient states he what sounds like a PET scan about 1 week ago at [facility] ? Incidental Lung Nodule Follow Up Concern for New Cancer Diagnosis: No Recommendation: CT Scan Follow up Date: 01/24/2025 Lung Nodule Follow-Up Scheduled: Yes Lung Nodule Program Location: [place] Medical Decision Making: Medical Decision Making Level: 1 - N/A History Aric Gonzalez is a 78 year old male Former smoker: (>30 pack-years, 17 years since quit) with a past medical history significant for CLL, CAD, [place], HTN, HLD, DDD who is being seen as a follow up visit for evaluation of a lung nodule(s). Patient states he had some microscopic hematuria a few weeks ago and states he had a full body scan about a week ago at [facility]. The patient denies a history of chronic respiratory disease. He had COVID-19 about 6 weeks ago. No medications required. The patient admits to shortness of breath - Some with exertion. Denies cough, mucus or wheezing. Denies chest pain and hemoptysis. Denies sinus pressure or drainage. Denies fevers, chills or night sweats. Denies unintentional weight loss. Denies difficulty swallowing. The patient does not use any inhalers at this time. Lung Nodule(s) Characteristics Date of initial imaging study: 10/15/23 Date of most recent imaging study: 01/14/24 Size of most concerning nodule: /7mm Density of most concerning nodule: Solid Border of most concerning nodule: Smooth Location of most concerning nodule: Right lower lobe Evaluation to date has included CT Scan. Has the nodule of concern remained stable? Stable This patient's past medical history, family history, social history, medications and allergies havebeen reviewed from the [facility] electronic medical record and any appropriate up-dates have been made. Physical Exam BP 132/74 Pulse 80 Wt 123.3 kg (271 lb 13.2 oz) SpO2 97% BMI 37.64 kg/m General appearance: Well appearing, alert, in no acute distress, well-hydrated, well nourished. Skin: Skin color normal, no suspicious rashes or lesions Head: Normocephalic, atraumatic Eyes: Anicteric sclera. Extraocular movements are intact. Neck: Supple, no adenopathy Lungs: Lungs clear to auscultation. No wheezing, rhonchi, rales. Heart: RRR without murmur, gallop, or rubs. No ectopy Extremities: Edema: None Neuro: Gait antalgic with cane. No focal deficits Diagnostic Data I have personally visualized, reviewed and analyzed the findings on pulmonary function testing and radiographs. Last CT/CTA Chest/Lungs CT CHEST WO IVCON Exam End: 01/14/2024 1:27 PM (Final result) Narrative: * * *Final Report* * * DATE OF EXAM: Jan 14 2024 1:27PM [facility] 0541 - CT CHEST WO IVCON / PROCEDURE REASON: multiple diagnoses * * * * Physician Interpretation * * * * EXAMINATION: CHEST CT WITHOUT CONTRAST CLINICAL HISTORY: Lung nodules. Technique: Spiral CT acquisition of the chest from the thoracic inlet to the upper abdomen without contrast. MQ: CTCWO_6 CT Radiation dose: Integrated Dose-length product (DLP) for this visit = 494 mGy*cm CT Dose Reduction Employed: Automated exposure control(AEC) and iterative recon Comparison: CT chest on 10/15/2023 RESULT: Limitations: None. Lines, tubes, and devices: None. Lung parenchyma and airways: The central airways are patent. There are multiple nodular densities visualized in the bilateral lungs. For example, there are nodular densities in the right lung measuring up to 1 cm, series 6 images 102, 120, 165, 176, 190 and 200. There are nodular densities in the left lung measuring up to 1.1 cm, series 6 images 143, 167, 169, 177, 185, 195 and 197. These nodular opacities have been stable; however there is a new 4 mm nodular density in the lingula, series 6 image 121. There are scarring and lower lungs, with dendriform calcifications or microlithiasis, unchanged. Similar atelectasis demonstrated in the right middle lobe. There are large pericardial fat pads. Pleural space: No pleural effusion. No pleural thickening. Lower neck, lymph nodes, and mediastinum: The imaged thyroid gland is normal. No lymphadenopathy in the supraclavicular, axillary, mediastinal, or hilar regions. Heart, pericardium, and thoracic vessels: The central pulmonary arteries are normal in caliber. There is ectatic descending aorta with tortuosity. The cardiac chambers are normal in size. Linear and punctate coronary artery atherosclerotic calcifications are noted, although the study is not optimized for coronary assessment. No pericardial effusion or thickening. Bones and soft tissues: No destructive bone lesion. The spine shows degenerative changes. Status post median sternotomy and CABG. Chest wall soft tissue is unremarkable. Upper abdomen: Limited study through the upper abdomen demonstrates no interval changes. Flash Welding Machine Operator (topogram) images: No additional findings. Impression: IMPRESSION: Multiple nodular opacities in the bilateral lungs with a new 4 mm nodular density in the lingula. Continued follow-up is recommended. Scarring with dendriform calcifications or microlithiasis in the bilateral lower lungs. Ectatic descending aorta. [facility] Transcribe Date/Time: Jan 16 2024 8:38A Dictated by : NEIDA ROSS MD This examination was interpreted and the report reviewed and electronically signed by: NEIDA ROSS MD on Jan 16 2024 3:10PM EST PT INR Date Value Ref Range Status 10/06/2020 1.1 0.9 - 1.3 Final Comment: Vitamin K Antagonist (VKA) Therapeutic Range: INR 2 to 3 (Target INR of 2.5) Note: For patients treated with VKA drugs, such as warfarin, the [place] [employer] 2012 Guideline recommends a therapeutic INR range of 2 to 3 (target INR of 2.5). This recommendation includes high-risk patients with antiphospholipid syndrome with previous arterial or venous thromboembolism, current-generation mechanical or bioprosthetic aortic heart valve replacement. Note: Patients with mechanical aortic valve replacement and additional risk factors for thromboembolic events (atrial fibrillation, previous thromboembolism, LV dysfunction, hypercoagulable conditions) or an older generation mechanical AVR (i.e., ball in-Cage) or any mechanical MVR should have a INR therapeutic range of 2.5 to 3.5 (target INR of 3). Jillian GH, et al. Chest 2012, 141:7S-47S Chaz RA, et al. [facility] 2017, 70: 252-289 Assessment / Plan To optimize physician communication via the electronic health record, the Assessment & Plan section has been placed at the beginning of this note. Marilyn Chan APRN.CNP Pulmonary & Critical Care Medicine Respiratory [place] January 20, 2024 10:22 AM documented in this encounterMet[facility]-29-[facility]24 Discharge summary Author Darien Nesbitt [facility] January 22, 2024 11:22am Note Date/Time January 22, 2024 11:22am [facility] Physical Therapy Health[address] [place] [id number] / REHABILITATION SERVICES DISCHARGE SUMMARY MR#: [id number] Acct: [id number] Name: ARIC GONZALEZ Rep #: [id number] : 1945 78 From: Cert. ALONZO CarballoT, OCS Referring Dr.: Dr. Suzan Ndiaye MD Status: REG RCR Insurance: [facility] SELF PAY INSURANCE Discharge Summary D/C summary: It has been my pleasure to treat ARIC GONZALEZ referred by Dr. Suzan Ndiaye MD, with the diagnosis of BACK PAIN for a total of 13 visit(s). Discharge Date: 01/22/24 Please see the following information for a summary of their discharge status. Subjective Subjective: Doing OKAY ready to ex's own Pain Bilateral Back: Pain Intensity (Out of 10): 1 Shoulder: Pain Intensity (Out of 10): 1 Overall Improvement % Improvement: 50 Objective Objective/Function: POSTURE: mild forward posture hips/knees flexed GAIT: reciprocal pattern slow medardo hips/knees flexed decrease step length BALANCE: fair + /GOOD - dynamic balance NEURO: denies paresthesia/tingling ,reflexes L3-4,L4-5,L5-S 1 1/3 FLEXABLITY: hamstrings mod tight ,piriformis mod tight LUMBAR ROM: flexion min/mod loss ,side glides mod loss ,extension severe loss MMT: quads/hams 4/5 ,hip flexion 4/5 ,ankle 4/5 Goals Goal 1:: Patient to be I with Aquatic therapy program add gym program Goal Progress: Goal Met Goal 2:: Patient to improve back oswestry score by 5 points to improve QOL and function. Goal Progress: Goal Met Goal 3:: Patient to improve lumbar ROM for function of recovery to put and tie shoes on Goal Progress: Goal Met Goal 4:: Patient to improve quality of gait with improved gait with improved endurance 50% Goal Progress: Goal Met Goal 5:: Patient to demonstrate 50% improved function and less pain Goal Progress: Goal Met Plan Plan: D/C D/C Information Discharge Comments: GYM d/c sentence: If there are questions or concerns regarding this patient's physical therapy, please feel free to call me at [phone]. Thank you for the referral of thispatient. Sincerely, Darien Nesbitt PT, Cert MDT, OCS Balance/Gait/Functional tests Balance/Special Test Scores Oswestry Low Back Score: 23 Improvement % Improvement: 50 <Electronically signed by Fede Mcpherson PT. MDT, OCS> 01/22/24 1122 CC: Dr. Suzan Ndiaye MD; Dr. Sylvester Javier MD ~ JLA Signed [facility] Work Phone: [phone]) 700-250902-27-2024 Instructions* Patient Instructions* Kelle Yin PA-C - 01/20/2024 10:51 AM EST Any concerning lung nodule identified on your last CT have resolved/are stable (unchanged), and onenew small nodules was seen on the exam. I would like to see you back in one year to re-assess these lung nodules. Kelle Yin PA-C January 20, 2024 10:51 AM Billing Questions: or [email or web address] documented in this encounterMet[facility]02-21-2024 History of Present illness Narrative* Radha Andrew RT(R) - 01/14/2024 1:00 PM EST Radiology Service Progress Note PATIENT NAME: Aric Gonzalez DATE OF SERVICE: January 14, 2024 TIME: 1:51 PM PATIENT IDENTITY VERIFICATION COMPLETED USING TWO (2) IDENTIFIERS: Name and Date of confirmedby patient verbally. FALL SCREENING: Has the patient had 2 falls in the last year or 1 fall with injury or currently using an Ambulatory Assistive Device (Walker, Cane, Wheelchair, Crutches, etc.)? No PATIENT GENDER DATA: Male PATIENT RELEVANT IMPLANT DATA REVIEWED: Yes PATIENT PRESENTS WITH AN IMPLANTABLE OR ATTACHED EQUIPMENT OPERATING ENGINEER: No RADIOLOGY DEPARTMENT: CT; Exam(s) Completed: Chest PERIPHERAL IV DATA: Not applicable SIGNED BY: RT Troy(R) January 14, 2024 1:51 PM documented in this encounterMetro[facility]01-24-2024 Note. MICRO - Microbiology PROCEDURE: Urine Culture [O1 *1] SOURCE: Urine, Clean Catch BODY SITE: COLLECTED DATE/TIME: 12/15/2023 11:47 EST RECEIVED DATE/TIME: 12/15/2023 20:22 EST START DATE/TIME: 12/15/2023 20:22 EST FREE TEXT SOURCE: FINAL REPORTS Final Report [] Verified Date/Time/Personnel: 12/17/2023 08:11 EST 10,000 - 50,000 cfu/ml Mixed growth consistent with normal urogenital matilda. PRELIMINARY REPORTS Preliminary Report [] Verified Date/Time/Personnel: 12/16/2023 10:06 EST Culture results pending. Order Comments O1: Urine Culture pcn allergies Performing Locations *1: This test was performed at: [facility], [address] [place] [address], [id number] , [facility] ([place])10-15-2023 Instructions* Patient Instructions* Blessing Farris APRN.CNP - 10/15/2023 1:56 PM EST It was nice seeing you today! Reason for your visit: Lung Nodules Your CT scan shows a few new nodules in the lower parts of the lungs. I think we should recheck these in [address] scan. The nodular area in the lower left lung that we have been watching looks to be stable. Please call our office with any questions or concerns [phone] (Lung Nodule Clinic) Thank you, Blessing Farris APRN.CNP documented in this encounterMet[facility]11-22-2023 History of Present illness Narrative* Blessing Farris APRN.CNP - 10/15/2023 1:30 PM EST Images from the original note were not included. [facility] INCIDENTAL LUNG NODULE PROGRAM (Follow Up) Assessment / Plan 1. Lung nodules - ICD9: 793.19, ICD10: R91.8 (primary diagnosis) - Aric Gonzalez presents today for follow-up of incidental lung nodule(s). - CT chest today shows a few new nodules in bilateral lower lobes measuring up to 8 mm in size. Given his history of prior tobacco use and CLL, recommend short term follow up CT scan in 3 months per guidelines. - Patient is otherwise doing well with no respiratory complaints today. - CT CHEST WO IVCON 2. Personal history of CLL (chronic lymphocytic leukemia) - ICD9: V10.61, ICD10: Z85.6 - CT CHEST WO IVCON Aric Gonzalez expresses understanding and is in agreement with plan. We will see him back in clinic in [address] scan. Blessing Farris APRN.CNP Incidental Lung Nodule Follow Up Concern for New Cancer Diagnosis: No Recommendation: CT Scan Follow up Date: 01/15/2024 Lung Nodule Follow-Up Scheduled: Yes Enrolled in Lung Nodule program: Yes Lung Nodule Program Location: [place] I spent a total of 40 minutes on the date of the service which included preparing to see the patient, [id number] patient care, completing clinical documentation, obtaining and/or reviewing separately obtained history, performing a medically appropriate examination, counseling and educating the pat ient/family/caregiver, and ordering medications, tests, or procedures. Thank you for allowing me to participate in the care of Aric Gonzalez. Please feel free to contact me with any questions or concerns. History Aric Gonzalez is a 78 year old male Former smoker: (>30 pack-years, 15 years since quit) with a past medical history significant for CLL, CAD, OH, HTN, HLD, DDD who is being seen as a follow up visit for evaluation of a lung nodule(s). The patient completed one year follow up CT chest and is here for review. Hx of CLL-- no indication for treatment at this time per last oncology note on . The patient states he has been doing well since last office visit. He denies any new respiratory complaints. He does admit to some dyspnea on exertion. No cough, wheezing, chest pain or hemoptysis. He denies recent respiratory illness or hospitalization. He does not use inhalers. Appetite is good, denies unintentional weight loss. He does complain of dizziness when moving from seated to standing position. He has fallen recently as a result. Going to PT for back pain. Medications Current Outpatient Medications Medication Sig acyclovir (ZOVIRAX) 400 mg tablet Take 400 mg by mouth twice daily. pantoprazole DR (PROTONIX) 40 mg tablet Take 40 mg by mouth once daily. lisinopril-hydroCHLOROthiazide (PRINZIDE,ZESTORETIC) 20-12.5 mg per tablet Take 1 tablet by mouth once daily. tamsulosin (FLOMAX) 0.4 mg Take 1 capsule by mouth daily at bedtime. atorvastatin (LIPITOR) 20 mg tablet Take 1 tablet by mouth once daily. aspirin, enteric coated (ASPIRIN, ENTERIC COATED) 81 mg EC tablet Take 81 mg by mouth once daily. clopidogrel (PLAVIX) 75 mg tablet Take 75 mg by mouth once daily. CALCIUM CARBONATE (TUMS 500 ORAL) Take by mouth as needed. isosorbide mononitrate ER (IMDUR) 60 mg 24 hr tablet Take 1 tablet by mouth once daily. tamsulosin (FLOMAX) 0.4 mg Take 0.4 mg by mouth once daily. (Patient not taking: Reported on 04/17/2023) cyanocobalamin, vitamin B-12, (VITAMIN B-12 ORAL) Take 1 tablet by mouth once daily. (Patient not taking: Reported on 04/15/2022) iv contrast (will be provided with radiology test) CT Cardiac - No IV access, insert saline lock prior to the sedation, infusion, injection for imaging exam. Discontinue saline lock post exam. If Pt.has a central line or IVAD, may access for administration according to line specific nursing protocol. Once exam is complete flush line and de-access according to line specific nursing protocol in the CT contrast administration guidelines link. (Patient not taking: Reported on 10/24/2020) iv contrast (will be provided with radiology test) CT Cardiac - No IV access, insert saline lock prior to the sedation, infusion, injection for imaging exam. Discontinue saline lock post exam. If Pt.has a central line or IVAD, may access for administration according to line specific nursing protocol. Once exam is complete flush line and de-access according to line specific nursing protocol in the CT contrast administration guidelines link. (Patient not taking: Reported on 10/06/2020) iv contrast (will be provided with radiology test) CT Cardiac - No IV access, insert saline lock prior to the sedation, infusion, injection for imaging exam. Discontinue saline lock post exam. If Pt.has a central line or IVAD, may access for administration according to line specific nursing protocol. Once exam is complete flush line and de-access according to line specific nursing protocol in the CT contrast administration guidelines link. (Patient not taking: Reported on 10/06/2020) No current facility-administered medications for this visit. Immunization History Administered Date(s) Administered COVID-19 original vaccine, full dose, monovalent (MODERNA) 01/03/2021 01/31/2021 10/22/2021 04/05/2022 COVID-19 vaccine, age 12+ yr, 2022- season (MODERNA) 10/08/2023 COVID-19 vaccine, age 12+ yr, bivalent (PFIZER-BIONTSpeedment) 09/10/2022 TD Adult 08/15/2006 influenza (HD-IIV3) vaccine, age 65+ yr, high dose, PF (FLUZONE HIGH-DOSE) 09/14/2015 09/05/2016 08/26/2017 09/04/2018 08/16/2019 influenza (HD-IIV4) vaccine, age 65+ yr, high dose, quadrivalent, PF (FLUZONE HIGH-DOSE) 09/04/2022 influenza (IIV3) vaccine, trivalent, PF (AFLURIA, FLUARIX, FLULAVAL, FLUVIRIN, FLUZONE) 09/18/2016 influenza (IIV4) vaccine, age 6 mo - 64 yr, quadrivalent, PF (AFLURIA, FLUARIX, FLULAVAL, FLUZONE) 08/09/2020 09/03/2023 influenza (aIIV3) vaccine, age 65+ yr, trivalent, PF (FLUAD) 09/04/2018 influenza vaccine, unspecified formulation 10/06/2006 11/03/2007 09/20/2008 09/07/2009 10/04/2010 09/05/2011 10/03/2012 08/19/2013 influenza vaccine, whole virus 09/24/2003 pneumococcal (PCV13) vaccine, 13 valent (PREVNAR 13) 09/05/2016 pneumococcal (PPV23) vaccine, 23 valent (PNEUMOVAX 23) 09/20/2008 zoster (RZV) vaccine, recombinant (SHINGRIX) 03/04/2019 07/20/2019 zoster (ZVL) vaccine, live (ZOSTAVAX) 12/31/2011 Allergies ALLERGIES Allergen Reactions Carvedilol Unknown Doxycycline Intolerance Diarrhea Penicillins Hives This patient's past medical history, family history, social history, medications and allergies havebeen reviewed from the [facility] and any appropriate up-dates have been made. Physical Exam BP 124/69 Pulse 86 Temp 36.6 C (97.9 F) (Temporal) Resp 16 Wt 117.5 kg (259 lb) SpO2 95% BMI 35.86 kg/m Physical Exam Vitals and nursing note reviewed. Constitutional: Appearance: Normal appearance. HENT: Head: Normocephalic and atraumatic. Nose: Nose normal. No rhinorrhea. Mouth/Throat: Mouth: Mucous membranes are moist. Pharynx: Oropharynx is clear. Eyes: Conjunctiva/sclera: Conjunctivae normal. Pupils: Pupils are equal, round, and reactive to light. Cardiovascular: Rate and Rhythm: Normal rate and regular rhythm. Pulmonary: Effort: Pulmonary effort is normal. No respiratory distress. Breath sounds: No decreased breath sounds, wheezing, rhonchi or rales. Musculoskeletal: Cervical back: Neck supple. Lymphadenopathy: Cervical: No cervical adenopathy. Skin: General: Skin is warm and dry. Neurological: General: No focal deficit present. Mental Status: He is alert and oriented to person, place, and time. Psychiatric: Mood and Affect: Mood and affect normal. Behavior: Behavior normal. Diagnostic Data DATE OF EXAM: Oct 15 2023 12:52PM [facility] [place] CHEST WO IVCON / PROCEDURE REASON: multiple diagnoses * * * * Physician Interpretation * * * * EXAMINATION: CHEST CT WITHOUT CONTRAST CLINICAL HISTORY: Lung nodules, former tobacco use Technique: Spiral CT acquisition of the chest from the thoracic inlet to the upper abdomen without contrast. MQ: CTCWO_6 CT Radiation dose: Integrated Dose-length product (DLP) for this visit = 507 mGy*cm CT Dose Reduction Employed: Automated exposure control(AEC) and iterative recon Comparison: Multiple prior studies dating back to 08/27/2013 RESULT: Limitations: None. Lines, tubes, and devices: None. Lung parenchyma and airways: There are several new lung nodules, for example: 5 mm subpleural nodule in left lower lobe on image 169 6 mm nodule in right lower lobe posteriorly on image 188. Left lung base a fusiform 8 mm nodule on image 184. Right lower lobe 7 mm solid nodule on image 141. In addition, there is an ill-defined nodular opacity in left lung base on image 203. Lower lung predominant peripheral reticular opacities with numerous serpiginous high attenuation nodular opacities associated with traction bronchiectasis and bronchiolectasis progressed compared to the older studies dating back to 2012. The central airways are patent. Pleural space: No pleural effusion. No pleural thickening. Lower neck, lymph nodes, and mediastinum: The imaged thyroid gland is normal. No lymphadenopathy in the supraclavicular, axillary, mediastinal, or hilar regions. Heart, pericardium, and thoracic vessels: The thoracic aorta and main pulmonary artery are normal in caliber. Aortic valve leaflet calcifications. The cardiac chambers are normal in size. Prior CABG. Extensive coronary artery atherosclerotic calcifications are noted, although the study is not optimized for coronary assessment. No pericardial effusion or thickening. Bones and soft tissues: No destructive bone lesion. Chest wall is unremarkable. Degenerative changes in thoracic spine. Upper abdomen: Partially visualized abdominal aortic endograft. Flash Welding Machine Operator (topogram) images: No additional findings. IMPRESSION: 1. Several new nodules in left lower lobe and in right lower lobe are indeterminate. Infection/inflammatory process versus neoplastic lesion are most common etiologies. Recommend follow-up as warranted by patient's history of CLL. 2. 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 3. No lymph node enlargement in the thorax. I have personally visualized, reviewed and confirmed the imaging findings. Assessment / Plan To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 with pcp in 2 days Urgent f/u for severe/worsening s/s. - XR LUMBAR GENERAL 3V AP/LAT/L5-S1 Impression IMPRESSION: No acute fracture. Degenerative disease of the lumbar spine. Dictated by : MARY SHI MD - METHYLPREDNISOLONE 4 MG TABLETS IN A DOSE PACK Agrees to plan Jasiel Menard APRN.WINCH TRUCK OPERATOR documented in this encounterMet[facility]2022 History of Present illness Narrative* Ansley Mancini RT(R) - 05/15/2022 2:10 PM EDT Radiology Service Progress Note PATIENT NAME: Aric Gonzalez DATE OF SERVICE: May 15, 2022 TIME: 2:07 PM PATIENT IDENTITY VERIFICATION COMPLETED USING TWO (2) IDENTIFIERS: Name and Date of confirmedby patient verbally. FALL SCREENING: Has the patient had 2 falls in the last year or 1 fall with injury or currently using an Ambulatory Assistive Device (Walker, Cane, Wheelchair, Crutches, etc.)? No PATIENT GENDER DATA: Male PATIENT RELEVANT IMPLANT DATA REVIEWED: Not Applicable RADIOLOGY DEPARTMENT: General X-ray: Exam(s) Completed: Spine X-Ray(s): Lumbar AP / LAT / L5-S1 PERIPHERAL IV DATA: Not applicable SIGNED BY: RT Robert(R) May 15, 2022 2:07 PM documented in this encounterMetrohealth [facility]05-23-2022 History of Present illness Narrative* Juan Miguel Smith MD - 04/15/2022 10:04 AM EDT PATIENT NAME: Aric Gonzalez. CLINIC NO: [id number]. ATTENDING PHYSICIAN: Juan Miguel Smith MD. DATE OF SERVICE:04/15/2022 DIAGNOSIS: CLL and chronic thrombocytopenia HPI: A 76-year-old gentleman who was diagnosed with chronic lymphocytosis and thrombocytopenia. In November 2019, he had a CBC which showed moderate lymphocytosis. He had this chronic thrombocytopeniasince 2012. Despite aspirin and Plavix, he has no clinical bleeding, increased bruising or anemia. He has no fever, chills, night sweats, or weight loss. Patient denies frequent or recurrent infection. Interim history: Patient has no fever, chills night sweat or weight loss. Mild fatigue, but no shortness of breath. He denies bleeding or bruising despite thrombocytopenia. Easy bruising with low platelet on Plavix and aspirin. All medications & allergies updated and reviewed by me. REVIEW OF SYSTEMS: CONSTITUTIONAL: No fevers, chills, nightsweats, unintended weight loss; HEENT: Denies frequent or severe heaches, nasal congestion/sinus symptoms, problematic allergy problems. EYES: No diplopia or blurry vision. CARDIOVASCULAR: No chest pain, dyspnea, palpitations, orthopnea, PND, ankle edema. PULM: No dyspnea, unexplained cough. GI: No dysphagia/odynophagia, problematic reflux, constipation, diarrhea, changes in stool habits, hematochezia, melena. : No new urinary complaints, including dysuria, gross hematuria or pyuria. NEURO: No new balance problems, peripheral weakness/paresthesias or numbness of concern. MUSC-SKEL: No new joint pain, swelling, or erythema. PSY: No concerns regarding depression, anxiety or panic. INTEGUMENTARY: No new skin changes (rash, new or changing mole, new growth) PHYSICAL EXAMINATION: 76-year-old gentleman in no acute distress BP 138/81 Pulse 80 Temp 98.4 Ht 6' .441 (1.84m) Wt 276 lb 8 oz (125.4kg) SpO2 96% BMI 37.05 kg/(m^2). HEENT: Head is normocephalic, atraumatic. Sclerae white, conjunctivae pink. PEERL. EOMs are intact.Oropharynx is benign. LYMPHATICS: There is some palpable adenopathy in the neck, axillae ( small ) LUNGS: Lungs are clear to percussion and auscultation. HEART: Heart is normal without murmurs, gallops, or rubs. ABDOMEN: Soft and nontender without organomegaly. No masses can be palpated. EXTREMITIES: Are without edema. No petechia or + ecchymosis NEUROLOGIC: Exam is physiologic LABORATORY DATA: Component Latest Ref Rng & Units 04/15/2022 WBC 3.70 - 11.00 k/uL 20.74 (H) RBC 4.20 - 6.00 m/uL 4.21 Hemoglobin 13.0 - 17.0 g/dL 13.9 Hematocrit 39.0 - 51.0 % 39.7 MCV 80.0 - 100.0 fL 94.3 MCH 26.0 - 34.0 pg 33.0 MCHC 30.5 - 36.0 g/dL 35.0 RDW-CV 11.5 - 15.0 % 13.1 Platelet Count 150 - 400 k/uL 101 (L) MPV 9.0 - 12.7 fL 9.5 NRBC /100 WBC 0.0 Absolute nRBC <0.01 k/uL <0.01 Neut% % 13.0 Abs Neut (ANC) 1.45 - 7.50 k/uL 2.70 Lymph% % 85.0 Abs Lymph 1.00 - 4.00 k/uL 17.63 (H) [place]% % 2.0 Abs [place] <0.87 k/uL 0.41 Eosin% % 0.0 Abs Eosin <0.46 k/uL 0.00 Baso% % 0.0 Abs Baso <0.11 k/uL 0.00 Realym% % 0.0 Bands % % 0.0 [place]% % 0.0 Myelo% % 0.0 Promyl% % 0.0 Blast <=0.0 % 0.0 Lymphoma Cell % 0.0 Prolymph % % 0.0 Plasma Cells % 0.0 Megakaryocytic Frag /100 WBC 0.0 Other Cells % 0.0 Platelet Estimate Decreased Red Cell Morph Reviewed: unremarkable DTYPE Manual Component Latest Ref Rng & Units 04/15/2022 Protein, Total 6.3 - 8.0 g/dL 6.9 Albumin 3.9 - 4.9 g/dL 4.4 Calcium 8.5 - 10.2 mg/dL 8.8 Bilirubin, Total 0.2 - 1.3 mg/dL 0.7 Alkaline Phosphatase 38 - 113 U/L 74 AST 14 - 40 U/L 26 ALT 10 - 54 U/L 14 Glucose 74 - 99 mg/dL 116 (H) BUN 9 - 24 mg/dL 23 Creatinine 0.73 - 1.22 mg/dL 1.25 (H) Sodium 136 - 144 mmol/L 137 Potassium 3.7 - 5.1 mmol/L 4.2 Chloride 97 - 105 mmol/L 103 CO2 22 - 30 mmol/L 23 Anion Gap 9 - 18 mmol/L 11 eGFR >=60 mL/min/1.73m 59 (L) LD 135 - 225 U/L 213 ASSESSMENT: 76-year-old gentleman with chronic ITP and chronic lymphocytic leukemia. -Small palpable adenopathy but he is asymptomatic -No sign of anemia or hemolysis despite low platelets PLAN: - Treatment for CLL not indicated at this time. - Continue observation & follow-up in 1 year. - Repeat CBC, CMP, and LDH in 1 year. - Continue aspirin 81 mg once daily & plavix 75 mg once daily and follow-up with cardiology. - Flu vaccine in the fall. Portions of this documentation were copied and pasted from previous office visit notes in order to provide a cohesive continuity of the history. The note has been reviewed and edited and updated as necessary. Juan Miguel Smith MD. Cc; Dr. Sylvester Javier [facility] NoteName: Aric Gonzalez Date of : 1945 Date of Admission: 05/25/2021 Date of Discharge: 05/25/2021 Admitting physician: Dr. Gracia Discharge Attending: SUE Manzano CNP, Dr. Gracia Primary Care Physician: No primary care provider on file. Review of Systems: Review of Systems Eyes: Negative for visual disturbance. Respiratory: Negative for chest tightness and shortness of breath. Cardiovascular: Negative for chest pain. Neurological: Negative for dizziness, speech difficulty, light-headedness and headaches. Physical Exam: Physical Exam Constitutional: Appearance: Normal appearance. Cardiovascular: Rate and Rhythm: Regular rhythm. Bradycardia present. Pulses: Normal pulses. Heart sounds: Normal heart sounds. Pulmonary: Effort: Pulmonary effort is normal. No respiratory distress. Breath sounds: Normal breath sounds. Skin: General: Skin is warm and dry. Comments: Right radial site D&I with vasc band in place, without hematoma or ecchymosis. Pulse 2+, good sensation. Neurological: Mental Status: He is alert. Vitals: 05/25/21 1208 05/25/21 1215 05/25/21 1230 05/25/21 1245 BP: 116/70 120/69 117/68 118/71 Pulse: 61 57 56 60 Resp: 18 17 16 29 Temp: 98.2 ?F (36.8 ?C) TempSrc: Temporal SpO2: 93% 94% 96% 96% Weight: Height: Reason for Admission: [facility] + PCI Consultants: Cardiac rehab HOSPITAL ADMISSION PROBLEM LIST: Patient Active Problem List Diagnosis ? Coronary artery disease involving [place] coronary artery of [place] heart without angina pectoris ? S/P drug eluting coronary stent placement ? Essential hypertension ? Hyperlipidemia, unspecified ? Carotid artery stenosis ? History of endovascular stent graft for abdominal aortic aneurysm (AAA) ? Spinal stenosis Procedures: Cath Summary: Full cath report pending- verbal report successful CLAUDINE to ostial LCx HOSPITAL COURSE : Patient is a 75 year old male, patient of Dr. Ricci, with a past medical history significant for CAD s/p remote CABG, remote balloon angioplasty to RCA, PCI to LCx and OM 04/2020, HTN, HLP, AAA s/p stent graft in 2016, PVD, carotid stenosis, spinal stenosis, who presents today for elective PCI to LCx with Dr. Gracia. Procedure without complications. Patient feels well without complaints. EKG without acute changes. Right radial site stable with no bleeding or hematoma. Pulse and sensation intact. Plan for discharge to home later this afternoon after ambulation and if he remains CP free. Last Labs: Final Principle Discharge Diagnosis: 1. Coronary artery disease: S/p successful CLAUDINE to ostial LCx. Patient was previously loaded with Plavix prior to arrival. He will continue ASA 81 mg daily indefinitely, plavix 75 mg daily for at minimum 1 year without interruption, unless otherwise instructed by cardiology. Continue statin, BB. Add PPI while on DAPT. Secondary Discharge diagnosis: 2. HTN: Controlled. 3. HLP: No lipid panel for review. Continue atorvastatin. Discharge Medications: Aric Gonzalez Home Medication Instructions GRACIA:[id number] Printed on:05/25/21 2903 Medication Information aspirin 81 MG EC tablet Take 81 mg by mouth daily atorvastatin (LIPITOR) 40 MG tablet Take 1 tablet by mouth daily clopidogrel (PLAVIX) 75 MG tablet Take 1 tablet by mouth daily isosorbide mononitrate (IMDUR) 60 MG extended release tablet Take 1 tablet by mouth daily lisinopril-hydroCHLOROthiazide (PRINZIDE;ZESTORETIC) 20-12.5 MG per tablet Take 1 tablet by mouth daily metoprolol succinate (TOPROL XL) 25 MG extended release tablet Take 1 tablet by mouth daily pantoprazole (PROTONIX) 40 MG tablet Take 1 tablet by mouth every morning (before breakfast) tamsulosin (FLOMAX) 0.4 MG capsule Take 1 capsule by mouth nightly ICD Registry Information/AMI Registry Information NYHA Functional Classification: Class N/A Medical Therapy ? Aspirin: Yes If NO reason for omission ? ? MUNIRA/ARB: Yes If NO reason for omission ? ? Statin:Yes If NO reason for omission ? ? Beta Nicole:Yes If NO reason for omission ? ? P2Y12 Inhibitors :Yes If NO reason for omission ? ? Aldosterone inhibitor :No If NO reason for omission not indicated ? ? Cardiac rehab Yes If NO reason for omission Cardiac Rehab The Cardiac Rehabilitation Team at [facility] consists of highly skilled healthcare professionals, including nurses, physicians, and exercise physiologists all working together to help you return to a healthy, and active lifestyle. As a survivor of heart disease the program is designed to answer all of your questions about the disease through education, activity, monitored exercise, diet modification, and medication adherence. This program is proven to reduce reoccurrence of heart disease and reduce readmission. It is important for you to enroll in the program by attending orientation. For (more content not included)...[facility]07-02-2021 Hospital Discharge instructions* Instructions* Celsa Case, RN - 05/25/2021 Call your doctor with any medication questions or if you notice any side effects from your medications. If you are unable to fill your medications, please call your [facility] immediately. The office number is located with your follow-up appointment information. Call your doctor if any redness or drainage from the wound site. DO NOT stop taking your medication unless instructed to do so by your doctor. Read the drug information material that were given to you and take medications as instructed by your doctor. New drugs may have been added to your medications, that will strengthen your heart and prevent re-stenosis of the coronary arteries. Drink 6 glasses of water (8 ounces each) over the next 24 hours. Water helps clear the dye from your body. No alcoholic beverages for 24 hours. It may interfere with healing. No exercise or sex for 5 days. Call 911 for chest pain, arm pain, nausea, neck pain, dizziness or unusual sweating. Call your doctor if a lump at the puncture site enlarges or is larger than marble size. Call your doctor for numbness, tingling, or swelling of the fingers, hand or wrist. Call your doctor for increased area or bruising with discoloration extending into the arm. If bleeding occurs, hold pressure with your thumb against the puncture site and your finger againstthe back of the wrist for 10 minutes, if BLEEDING continues CALL 911. OK to shower. No tub baths, swimming pools or hot tub soaking for three days. Wash site daily with soap and water, dry gently. The healing wound should remain soft and dry. Keepsite clean and dry, no soaking of wrist for three days (no cleaning or dish washing). Remove dressing the day after procedure and apply band aids for five days then leave open to air. No bending of affected wrist for 24 hours. DO NOT lift more than three pounds for 5 days. No driving for 24 hours. GIVE PCI PACKET (FROM TIRE TECHNICIAN) TO PATIENT Give Coronary Artery Discharge Booklet PLEASE CALL YOUR HEART DOCTOR IF YOU CANNOT GET YOUR MEDICATIONS. THE NUMBER IS LISTED WITH YOUR FOLLOW-UP APPOINTMENT. Procedure Sedation Instructions 1. If you have received sedation: you must have someone drive you home 2. You should not drive a car, operate machinery, drink alcohol or perform any activity that requires alertness for the rest of the day. The effects of the sedative should be gone by tomorrow. Blood work in 5-7 days, see orders Cardiac Rehab The Cardiac Rehabilitation Team at [facility] consists of highly skilled healthcare professionals, including nurses, physicians, and exercise physiologists all working together to help you return to a healthy, and active lifestyle. As a survivor of heart disease the program is designed to answer all of your questions about the disease through education, activity, monitored exercise, diet modification, and medication adherence. This program is proven to reduce reoccurrence of heart disease and reduce readmission. It is important for you to enroll in the program by attending orientation. For any questions regarding this valuable service please call # [phone] Orientation is available on all Wednesdays at 11:30 am location in the [address] documented in this [facility] Work Phone: 1(536) 983-619807-02-2021 Hospital course Narrative* Gracie Dyer APRN - CNP - 05/25/2021 12:18 PM EDT Name: Aric Gonzalez Date of : 1945 Date of Admission: 05/25/2021 Date of Discharge: 05/25/2021 Admitting physician: Dr. Gracia Discharge Attending: SUE Manzano CNP, Dr. Gracia Primary Care Physician: No primary care provider on file. Review of Systems: Review of Systems Eyes: Negative for visual disturbance. Respiratory: Negative for chest tightness and shortness of breath. Cardiovascular: Negative for chest pain. Neurological: Negative for dizziness, speech difficulty, light-headedness and headaches. Physical Exam: Physical Exam Constitutional: Appearance: Normal appearance. Cardiovascular: Rate and Rhythm: Regular rhythm. Bradycardia present. Pulses: Normal pulses. Heart sounds: Normal heart sounds. Pulmonary: Effort: Pulmonary effort is normal. No respiratory distress. Breath sounds: Normal breath sounds. Skin: General: Skin is warm and dry. Comments: Right radial site D&I with vasc band in place, without hematoma or ecchymosis. Pulse 2+, good sensation. Neurological: Mental Status: He is alert. Vitals: 05/25/21 1208 05/25/21 1215 05/25/21 1230 05/25/21 1245 BP: 116/70 120/69 117/68 118/71 Pulse: 61 57 56 60 Resp: 18 17 16 29 Temp: 98.2 F (36.8 C) TempSrc: Temporal SpO2: 93% 94% 96% 96% Weight: Height: Reason for Admission: C + PCI Consultants: Cardiac rehab HOSPITAL ADMISSION PROBLEM LIST: Patient Active Problem List Diagnosis Coronary artery disease involving [place] coronary artery of [place] heart without angina pectoris S/P drug eluting coronary stent placement Essential hypertension Hyperlipidemia, unspecified Carotid artery stenosis History of endovascular stent graft for abdominal aortic aneurysm (AAA) Spinal stenosis Procedures: Cath Summary: Full cath report pending- verbal report successful CLAUDINE to ostial LCx HOSPITAL COURSE : Patient is a 75 year old male, patient of Dr. Ricci, with a past medical history significant for CAD s/p remote CABG, remote balloon angioplasty to RCA, PCI to LCx and OM 04/2020, HTN, HLP, AAA s/p stent graft in 2015, PVD, carotid stenosis, spinal stenosis, who presents today for elective PCI to LCx with Dr. Gracia. Procedure without complications. Patient feels well without complaints. EKG without acute changes. Right radial site stable with no bleeding or hematoma. Pulse and sensation intact. Plan for discharge to home later this afternoon after ambulation and if he remains CP free. Last Labs: Final Principle Discharge Diagnosis: 1. Coronary artery disease: S/p successful CLAUDINE to ostial LCx. Patient was previously loaded with Plavix prior to arrival. He will continue ASA 81 mg daily indefinitely, plavix 75 mg daily for at minimum 1 year without interruption, unless otherwise instructed by cardiology. Continue statin, BB. AddPPI while on DAPT. Secondary Discharge diagnosis: 2. HTN: Controlled. 3. HLP: No lipid panel for review. Continue atorvastatin. Discharge Medications: Aric Gonzalez Home Medication Instructions GRACIA:[id number] Printed on:05/25/21 4566 Medication Information aspirin 81 MG EC tablet Take 81 mg by mouth daily atorvastatin (LIPITOR) 40 MG tablet Take 1 tablet by mouth daily clopidogrel (PLAVIX) 75 MG tablet Take 1 tablet by mouth daily isosorbide mononitrate (IMDUR) 60 MG extended release tablet Take 1 tablet by mouth daily lisinopril-hydroCHLOROthiazide (PRINZIDE;ZESTORETIC) 20-12.5 MG per tablet Take 1 tablet by mouth daily metoprolol succinate (TOPROL XL) 25 MG extended release tablet Take 1 tablet by mouth daily pantoprazole (PROTONIX) 40 MG tablet Take 1 tablet by mouth every morning (before breakfast) tamsulosin (FLOMAX) 0.4 MG capsule Take 1 capsule by mouth nightly ICD Registry Information/AMI Registry Information NYHA Functional Classification: Class N/A Medical Therapy Aspirin: Yes If NO reason for omission MUNIRA/ARB: Yes If NO reason for omission Statin:Yes If NO reason for omission Beta Nicole:Yes If NO reason for omission P2Y12 Inhibitors :Yes If NO reason for omission Aldosterone inhibitor :No If NO reason for omission not indicated Cardiac rehab Yes If NO reason for omission Cardiac Rehab The Cardiac Rehabilitation Team at [facility] consists of highly skilled healthcare professionals, including nurses, physicians, and exercise physiologists all working together to help you return to a healthy, and active lifestyle. As a survivor of heart disease the program is designed to answer all of your questions about the disease through education, activity, monitored exercise, diet modification, and medication adherence. This program is proven to reduce reoccurrence of heart disease and reduce readmission. It is important for you to enroll in the program by attending orientation. For any questions regarding this valuable service please call # [phone] Orientation is available on all Wednesdays at 11:30 am location in the [address] BMI Classification: Obese (BMI 30.0-39.9) DIET: A lowfat, low cholesterol diet was discussed with the patient. Discharge to Home Condition at Discharge: good Follow up with cardiology Dr. Ricci, 06/06/21 If any questions call [facility] office [phone] Total time spent for Discharge time greater than 31 minutes documented in this [facility] Work Phone: 1(881) 942-486310-18-2016 History of Past illness Narrative* Problem Noted Date Resolved Date Umbilical hernia without obstruction or gangrene 09/10/2016 02/24/2017 Sebaceous cyst 11/04/2009 02/27/2016 Recurrent major depressive disorder 06/24/2007 02/24/2017 Other seborrheic keratosis 06/24/200702/26 Tobacco use disorder 07/18/2005 02/27/2016 Acute peptic ulcer, unspecif ied site, without mention of hemorrhage, perforation, or obstruction 02/16/2015 documented as of this encounter (statuses as of 04/16/2022) [facility] History of Past illness Narrative* Problem Noted Date Resolved Date Umbilical hernia without obstruction or gangrene 09/10/2016 02/24/2017 Sebaceous cyst 11/04/2009 02/27/2016 Recurrent major depressive disorder 06/24/2007 02/24/2017 Other seborrheic keratosis 06/24/200702/26 Tobacco use disorder 07/18/2005 02/27/2016 Acute peptic ulcer, unspecif ied site, without mention of hemorrhage, perforation, or obstruction 02/16/2015 documented as of this encounter (statuses as of 05/15/2022) [facility] of Past illness Narrative* Problem Noted Date Resolved Date Umbilical hernia without obstruction or gangrene 09/10/2016 02/24/2017 Sebaceous cyst 11/04/2009 02/27/2016 Recurrent major depressive disorder 06/24/2007 02/24/2017 Other seborrheic keratosis 06/24/200702/26 Tobacco use disorder 07/18/2005 02/27/2016 Acute peptic ulcer, unspecif ied site, without mention of hemorrhage, perforation, or obstruction 02/16/2015 documented as of this encounter (statuses as of 06/04/2022) [facility] of Past illness Narrative* Problem Noted Date Resolved Date Umbilical hernia without obstruction or gangrene 09/10/2016 02/24/2017 Sebaceous cyst 11/04/2009 02/27/2016 Recurrent major depressive disorder 06/24/2007 02/24/2017 Other seborrheic keratosis 06/24/200702/26 Tobacco use disorder 07/18/2005 02/27/2016 Acute peptic ulcer, unspecif ied site, without mention of hemorrhage, perforation, or obstruction 02/16/2015 documented as of this encounter (statuses as of 06/20/2022) [facility] of Past illness Narrative* Problem Noted Date Resolved Date Umbilical hernia without obstruction or gangrene 09/10/2016 02/24/2017 Sebaceous cyst 11/04/2009 02/27/2016 Recurrent major depressive disorder 06/24/2007 02/24/2017 Other seborrheic keratosis 06/24/200702/26 Tobacco use disorder 07/18/2005 02/27/2016 Acute peptic ulcer, unspecif ied site, without mention of hemorrhage, perforation, or obstruction 02/16/2015 documented as of this encounter (statuses as of 07/23/2022) [facility] of Past illness Narrative* Problem Noted Date Resolved Date Umbilical hernia without obstruction or gangrene 09/10/2016 02/24/2017 Sebaceous cyst 11/04/2009 02/27/2016 Recurrent major depressive disorder 06/24/2007 02/24/2017 Other seborrheic keratosis 06/24/200702/26 Tobacco use disorder 07/18/2005 02/27/2016 Acute peptic ulcer, unspecif ied site, without mention of hemorrhage, perforation, or obstruction 02/16/2015 documented as of this encounter (statuses as of 09/16/2022) [facility] of Past illness Narrative* Problem Noted Date Resolved Date Umbilical hernia without obstruction or gangrene 09/10/2016 02/24/2017 Sebaceous cyst 11/04/2009 02/27/2016 Recurrent major depressive disorder 06/24/2007 02/24/2017 Other seborrheic keratosis 06/24/200702/26 Tobacco use disorder 07/18/2005 02/27/2016 Acute peptic ulcer, unspecif ied site, without mention of hemorrhage, perforation, or obstruction 02/16/2015 documented as of this encounter (statuses as of 09/20/2022) [facility] of Past illness Narrative* Problem Noted Date Resolved Date Umbilical hernia without obstruction or gangrene 09/10/2016 02/24/2017 Sebaceous cyst 11/04/2009 02/27/2016 Recurrent major depressive disorder 06/24/2007 02/24/2017 Other seborrheic keratosis 06/24/200702/26 Tobacco use disorder 07/18/2005 02/27/2016 Acute peptic ulcer, unspecif ied site, without mention of hemorrhage, perforation, or obstruction 02/16/2015 documented as of this encounter (statuses as of 09/25/2022) [facility] of Past illness Narrative* Problem Noted Date Resolved Date Umbilical hernia without obstruction or gangrene 09/10/2016 02/24/2017 Sebaceous cyst 11/04/2009 02/27/2016 Recurrent major depressive disorder 06/24/2007 02/24/2017 Other seborrheic keratosis 06/24/200702/26 Tobacco use disorder 07/18/2005 02/27/2016 Acute peptic ulcer, unspecif ied site, without mention of hemorrhage, perforation, or obstruction 02/16/2015 documented as of this encounter (statuses as of 09/25/2022) [facility] of [facility] illness Narrative* Problem Noted Date Resolved Date Umbilical hernia without obstruction or gangrene 09/10/2016 02/24/2017 Sebaceous cyst 11/04/2009 02/27/2016 Recurrent major depressive disorder 06/24/2007 02/24/2017 Other seborrheic keratosis 06/24/200702/26 Tobacco use disorder 07/18/2005 02/27/2016 Acute peptic ulcer, unspecif ied site, without mention of hemorrhage, perforation, or obstruction 02/16/2015 documented as of this encounter (statuses as of 09/30/2022) [facility] of Past illness Narrative* Problem Noted Date Resolved Date Umbilical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 and content) DATE CREATED AUTHOR 08/05/2018 [facility] DATE CREATED AUTHOR AUTHOR'S ORGANIZ ATION 08/05/2018 [facility] DATE CREATED AUTHOR AUTHOR'S ORGANIZ ATION 12/15/2019 [facility] DATE CREATED AUTHOR AUTHOR'S ORGANIZ ATION 01/10/2022 [facility] DATE CREATED AUTHOR AUTHOR'S ORGANIZ ATION 09/26/2022 [facility] DATE CREATED AUTHOR AUTHOR'S ORGANIZ ATION 02/24/2024 [facility] DATE CREATED AUTHOR AUTHOR'S ORGANIZ ATION 03/07/2025 [facility] DATE CREATED AUTHOR AUTHOR'S ORGANIZ ATION 03/24/2025 [facility] [facility] DATE CREATED AUTHOR AUTHOR'S ORGANIZ ATION 05/24/2025 [facility] Ordered Prescriptions (unrec ognized section and content) Prescription Sig Dispensed Refills Start Date End Da te pantoprazole (PROTONIX) 40 MG tablet Take 1 tablet by mouth every morning (before breakfast) 30 tablet 11 05/25/2021 atorvastatin (LIPITOR) 40 MG tablet Take 1 tablet by mouth daily 90 tablet 05/25/2021 Scheduled Active and Recently Administ ered Medications (unrecognized section and content) Medication Order 05/23/2021 05/24/2021 05/25/2021 sodium chloride flush 0.9 % injection 5-40 mL 5-40 mL, Intravenous, EVERY 12 HOURS SCHEDULED (2 times per day), First dose on Fri05/25/21 at 1145, For Line Patency: Peripheral IV = 5 mL; Midline or Central Line = 10 mL/lumen. If following IV push medication, administer flush at same rate as the IV push. Flush volume is determined by type of infusion therapy being given. For non-viscous solutions use: Peripheral IV = 5 mL Midline or Central Line = 10 mL/lumen For viscous solutions (i.e. blood components, parenteral nutrition, contrast media, or after obtaining blood sample) use: Peripheral IV = 10 mL Midline or Central Line = 20 mL/lumen, Pre-Procedure(Cath) 1145 (Due)2100 (Due) sodium chloride flush 0.9 % injection 5-40 mL 5-40 mL, Intravenous, EVERY 12 HOURS SCHEDULED (2 times per day), First dose on Fri05/25/21 at 2100, For Line Patency: Peripheral IV = 5 mL; Midline or Central Line = 10 mL/lumen. If following IV push medication, administer flush at same rate as the IV push. Flush volume is determined by type of infusion therapy being given. For non-viscous solutions use: Peripheral IV = 5 mL Midline or Central Line = 10 mL/lumen For viscous solutions (i.e. blood components, parenteral nutrition, contrast media, or after obtaining blood sample) use: Peripheral IV = 10 mL Midline or Central Line = 20 mL/lumen, Recovery(Cath) 2100 (Due) Continuous Medication Order 05/23/2021 05/24/2021 05/25/2021 0.9 % sodium chloride infusion Intravenous, at 30 mL/hr, CONTINUOUS, Starting on Fri05/25/21 at 1045, Pre-Procedure(Cath) 1045 (Due) PRN Medication Order 05/23/2021 05/24/2021 05/25/2021 acetaminophen (TYLENOL) tablet 650 mg 650 mg, Oral, EVERY 4 HOURS PRN, Pain Mild (1-3), Fever, Fever >100.5 F (38 C), Starting on Fri05/25/21 at 1239, Maximum dose of acetaminophen is 4000 mg from all sources in 24 hours., Recovery(Cath) sodium chloride flush 0.9 % injection 5-40 mL 5-40 mL, Intravenous, PRN, Line Care, After every IV line use, Starting on Fri05/25/21 at 1130, For Line Patency: Peripheral IV = 5 mL; Midline or Central Line = 10 mL/lumen. If following IV push medication, administer flush at same rate as the IV push. Flush volume is determined by type of infusion therapy being given. For non-viscous solutions use: Peripheral IV = 5 mL Midline or Central Line = 10 mL/lumen For viscous solutions (i.e. blood components, parenteral nutrition, contrast media, or after obtaining blood sample) use: Peripheral IV = 10 mL Midline or Central Line = 20 mL/lumen, Pre-Procedure(Cath) sodium chloride flush 0.9 % injection 5-40 mL 5-40 mL, Intravenous, PRN, Line Care, Starting on Fri05/25/21 at 1239, For Line Patency: Peripheral IV = 5 mL; Midline or Central Line = 10 mL/lumen. If following IV push medication, administer flush at same rate as the IV push. Flush volume is determined by type of infusion therapy being given. For non-viscous solutions use: Peripheral IV = 5 mL Midline or Central Line = 10 mL/lumen For viscous solutions (i.e. blood components, parenteral nutrition, contrast media, or after obtaining blood sample) use: Peripheral IV = 10 mL Midline or Central Line = 20 mL/lumen, Recovery(Cath) Source Comments (unrecognize d section and content) In the event this informatio n is protected by the Federal Confidentiality of Alcohol and Drug Abuse Patient Records regulations: The Federal rules restrict any use of the information to criminally investigate or prosecute any alcohol or drug abuse patient.[facility] the event this information is protected by the Federal Confidentiality of Alcohol and Drug Abuse Patient Records regulations: The Federal rules restrict any use of the information to criminally investigate or prosecute any alcohol or drug abuse patient.[facility] CenterIn the event this information is protected by the Federal Confidentiality of Alcohol and Drug Abuse Patient Records regulations: The Federal rules restrict any use of the information to criminally investigate or prosecute any alcohol or drug abuse patient.[facility] CenterIn the event this information is protected by the Federal Confidentiality of Alcohol and Drug Abuse Patient Records regulations: The Federal rules restrict any use of the information to criminally investigate or prosecute any alcohol or drug abuse patient.[facility] CenterIn the event this information is protected by the Federal Confidentiality of Alcohol and Drug Abuse Patient Records regulations: The Federal rules restrict any use of the information to criminally investigate or prosecute any alcohol or drug abuse patient.[facility] CenterIn the event this information is protected by the Federal Confidentiality of Alcohol and Drug Abuse Patient Records regulations: The Federal rules restrict any use of the information to criminally investigate or prosecute any alcohol or drug abuse patient.[facility] CenterIn the event this information is protected by the Federal Confidentiality of Alcohol and Drug Abuse Patient Records regulations: The Federal rules restrict any use of the information to criminally investigate or prosecute any alcohol or drug abuse patient.[facility] CenterIn the event this information is protected by the Federal Confidentiality of Alcohol and Drug Abuse Patient Records regulations: The Federal rules restrict any use of the information to criminally investigate or prosecute any alcohol or drug abuse patient.[facility] CenterIn the event this information is protected by the Federal Confidentiality of Alcohol and Drug Abuse Patient Records regulations: The Federal rules restrict any use of the information to criminally investigate or prosecute any alcohol or drug abuse patient.[facility] CenterIn the event this information is protected by the Federal Confidentiality of Alcohol and Drug Abuse Patient Records regulations: The Federal rules restrict any use of the information to criminally investigate or prosecute any alcohol or drug abuse patient.[facility] CenterIn the event this information is protected by the Federal Confidentiality of Alcohol and Drug Abuse Patient Records regulations: The Federal rules restrict any use of the information to criminally investigate or prosecute any alcohol or drug abuse patient.[facility] CenterIn the event this information is protected by the Federal Confidentiality of Alcohol and Drug Abuse Patient Records regulations: The Federal rules restrict any use of the information to criminally investigate or prosecute any alcohol or drug abuse patient.[facility] CenterIn the event this information is protected by the Federal Confidentiality of Alcohol and Drug Abuse Patient Records regulations: The Federal rules restrict any use of the information to criminally investigate or prosecute any alcohol or drug abuse patient.[facility] CenterIn the event this information is protected by the Federal Confidentiality of Alcohol and Drug Abuse Patient Records regulations: The Federal rules restrict any use of the information to criminally investigate or prosecute any alcohol or drug abuse patient.[facility] CenterIn the event this information is protected by the Federal Confidentiality of Alcohol and Drug Abuse Patient Records regulations: The Federal rules restrict any use of the information to criminally investigate or prosecute any alcohol or drug abuse patient.[facility] CenterIn the event this information is protected by the Federal Confidentiality of Alcohol and Drug Abuse Patient Records regulations: The Federal rules restrict any use of the information to criminally investigate or prosecute any alcohol or drug abuse patient.[facility] CenterIn the event this information is protected by the Federal Confidentiality of Alcohol and Drug Abuse Patient Records regulations: The Federal rules restrict any use of the information to criminally investigate or prosecute any alcohol or drug abuse patient.[facility] CenterIn the event this information is protected by the Federal Confidentiality of Alcohol and Drug Abuse Patient Records regulations: The Federal rules restrict any use of the information to criminally investigate or prosecute any alcohol or drug abuse patient.[facility] CenterIn the event this information is protected by the Federal Confidentiality of Alcohol and Drug Abuse Patient Records regulations: The Federal rules restrict any use of the information to criminally investigate or prosecute any alcohol or drug abuse patient.[facility] CenterIn the event this information is protected by the Federal Confidentiality of Alcohol and Drug Abuse Patient Records regulations: The Federal rules restrict any use of the information to criminally investigate or prosecute any alcohol or drug abuse patient.[facility] CenterIn the event this information is protected by the Federal Confidentiality of Alcohol and Drug Abuse Patient Records regulations: The Federal rules restrict any use of the information to criminally investigate or prosecute any alcohol or drug abuse patient.[facility] CenterIn the event this information is protected by the Federal Confidentiality of Alcohol and Drug Abuse Patient Records regulations: The Federal rules restrict any use of the information to criminally investigate or prosecute any alcohol or drug abuse patient.[facility] CenterIn the event this information is protected by the Federal Confidentiality of Alcohol and Drug Abuse Patient Records regulations: The Federal rules restrict any use of the information to criminally investigate or prosecute any alcohol or drug abuse patient.[facility] CenterIn the event this information is protected by the Federal Confidentiality of Alcohol and Drug Abuse Patient Records regulations: The Federal rules restrict any use of the information to criminally investigate or prosecute any alcohol or drug abuse patient.[facility] CenterIn the event this information is protected by the Federal Confidentiality of Alcohol and Drug Abuse Patient Records regulations: The Federal rules restrict any use of the information to criminally investigate or prosecute any alcohol or drug abuse patient.[facility] CenterIn the event this information is protected by the Federal Confidentiality of Alcohol and Drug Abuse Patient Records regulations: The Federal rules restrict any use of the information to criminally investigate or prosecute any alcohol or drug abuse patient.[facility] CenterIn the event this information is protected by the Federal Confidentiality of Alcohol and Drug Abuse Patient Records regulations: The Federal rules restrict any use of the information to criminally investigate or prosecute any alcohol or drug abuse patient.[facility] CenterIn the event this information is protected by the Federal Confidentiality of Alcohol and Drug Abuse Patient Records regulations: The Federal rules restrict any use of the information to criminally investigate or prosecute any alcohol or drug abuse patient.[facility] CenterIn the event this information is protected by the Federal Confidentiality of Alcohol and Drug Abuse Patient Records regulations: The Federal rules restrict any use of the information to criminally investigate or prosecute any alcohol or drug abuse patient.[facility] CenterIn the event this information is protected by the Federal Confidentiality of Alcohol and Drug Abuse Patient Records regulations: The Federal rules restrict any use of the information to criminally investigate or prosecute any alcohol or drug abuse patient.[facility] CenterIn the event this information is protected by the Federal Confidentiality of Alcohol and Drug Abuse Patient Records regulations: The Federal rules restrict any use of the information to criminally investigate or prosecute any alcohol or drug abuse patient.[facility] CenterIn the event this information is protected by the Federal Confidentiality of Alcohol and Drug Abuse Patient Records regulations: The Federal rules restrict any use of the information to criminally investigate or prosecute any alcohol or drug abuse patient.[facility] Reason for Visit (unrecogniz ed section and content) Reason Comments Established Patient Reason Comments Low Back Pain fell off bike yester day on to a concrete drive Reason Comments New Nodule Specialty Diagnoses / Procedures Referred By Contac t Referred To Contact Pulmonary Disease Diagnoses Lung nodule Procedures CONSULT TO LUNG NODULE CLINIC OFFICE/OUTPATIENT [facility] 60-74 MINUTES Blessing Farris, [employer] POLICE OFFICER.WINCH TRUCK OPERATOR [address] [place] [address] Referral ID Status Reason Start Date Expiration Date Visits Requested Visits Authorized [id number] Pending Review PCP Requested Referral 08/21/2022 08/21/2023 1 1 Reason Comments Results Reason Comments Future Appointment Reason Comments Radiology CT Specialty Diagnoses / Procedures Referred By Contac t Referred To Contact CT IMAGING Diagnoses Lung nodules Procedures CT CHEST WO IVCON DIAGNOSTIC COMPUTED TOMOGRAPHY THORAX W/O CNTRST Blessing Farris, [employer] POLICE OFFICER.WINCH TRUCK OPERATOR [address] [place] [address] [facility] [place] [address] Referral ID Status Reason Start Date Expiration Date V isits Requested Visits Authorized [id number] Closed Auto-Generate d Referral 09/13/2022 11/23/2022 1 1 Specialty Diagnoses / Procedures Referred By Contac t Referred To Contact CT IMAGING Diagnoses Lung nodules Former tobacco use Procedures CT CHEST WO IVCON DIAGNOSTIC COMPUTED TOMOGRAPHY THORAX W/O CNTRST Blessing Farris, [employer]ICE OFFICER.WINCH TRUCK OPERATOR [address] [place] [address] [place] [address] Referral ID Status Reason Start Date Expiration Date V isits Requested Visits Authorized [id number] Closed Auto-Generate d Referral 09/20/2023 07/29/2024 1 1 Reason Comments Follow Up Nodule Reason Comments Radiology CT Specialty Diagnoses / Procedures Referred By Contbj t Referred To Contact CT IMAGING Diagnoses Lung nodules Personal history of CLL (chronic lymphocytic leukemia) Procedures CT CHEST WO IVCON DIAGNOSTIC COMPUTED TOMOGRAPHY THORAX W/O CNTRST Blessing Farris, [employer] POLICE OFFICER.WINCH TRUCK OPERATOR [address] [place] [address] [place] [address] Referral ID Status Reason Start Date Expiration Date V isits Requested Visits Authorized [id number] Closed Auto-Generate d Referral 10/15/2023 11/13/2024 1 1 Reason Comments New Patient Reason Comments FILM REQ-DUSTIN Reason Comments Appointment Care Teams (unrecognized sec tion and content) Shot Core Drill Operator Helper Relationship Specialty Start Date End Date Sylvester Javier MD [address] [place], [place] [address] PCP - General Internal Medicine 11/21/21 Avery Handy DO Primary Staff Physician Cardiology 02/09/19 Shot Core Drill Operator Helper Relationship Specialty Start Date End Date Sylvester Javier MD [address] [place] [address] PCP - General Internal Medicine 11/21/21 Avery Handy DO Primary Staff Physician Cardiology 02/09/19 Shot Core Drill Operator Helper Relationship Specialty Start Date End Date Sylvester Javier MD [address] [place], [place] [address] 297- PCP - General Internal Medicine 11/21/21 Avery Handy, DO Primary Staff Physician Cardiology 02/09/19 Shot Core Drill Operator Helper Relationship Specialty Start Date End Date Sylvester Javier MD [address] [place] [address] PCP - General Internal Medicine 11/21/21 Avery Handy, DO Primary Staff Physician Cardiology 02/09/19 Shot Core Drill Operator Helper Relationship Specialty Start Date End Date Sylvester Javier MD [address] [place] [address] PCP - General Internal Medicine 11/21/21 Avery Handy, DO Primary Staff Physician Cardiology 02/09/19 Shot Core Drill Operator Helper Relationship Specialty Start Date End Date Sylvester Javier MD [address] [place] [address] PCP - General Internal Medicine 11/21/21 Avery Handy, DO Primary Staff Physician Cardiology 02/09/19 Shot Core Drill Operator Helper Relationship Specialty Start Date End Date Sylvester Javier MD [address] [place] [address] PCP - General Internal Medicine 11/21/21 Avery Handy, DO Primary Staff Physician Cardiology 02/09/19 Team Status: Active Member Role Status Dates Dr. Chato Lieberman III, MD Family Provider Active Dr. Sylvester Javier MD Primary Care Provider Active Team Status: Inactive Member Role Status Dates Dr. Sylvester Javier MD Primary [facility] Provider, [facility] Active Tawny Avalos PA, PA Attending Provider Active Team Status: Inactive Member Role Status Dates Dr. Sylvester Javier MD Primary Care Provider, Attendi ng Provider Active Team Status: Inactive Member Role Status Dates Dr. Sylvester Javier MD Primary Care Provider Active Dr. Suzan Ndiaye MD Attending Provider, Referring Pr ovider Active Team Status: Inactive Member Role Status Dates Dr. Sylvester Javier MD Primary Care Provider Active Tanwy Avalos PA, PA Attending Provider, Referr ing Provider Active Shot Core Drill Operator Helper Relationship Specialty Start Date End Date Sylvester Javier MD [address] [place] [address] PCP - General Internal Medicine 11/21/21 Avery Handy DO Primary Staff Physician Cardiology 02/09/19 Shot Core Drill Operator Helper Relationship Specialty Start Date End Date Sylvester Javier MD [address] [place] [address] PCP - General Internal Medicine 11/21/21 Avery Handy DO Primary Staff Physician Cardiology 02/09/19 Shot Core Drill Operator Helper Relationship Specialty Start Date End Date Sylvester Javier MD [address] [place] [address] PCP - General Internal Medicine 11/21/21 Avery Handy DO Primary Staff Physician Cardiology 02/09/19 Team Status: Inactive Member Role Status Dates Dr. Sylvester Javier MD Primary Care Provider, Referri ng Provider Active Dr. Yohannes Ricci MD Attending Provider Active Team Status: Inactive Member Role Status Dates Dr. Sylvester Javier MD Primary Care Pro vider, Attending Provider, Referring Provider Active Shot Core Drill Operator Helper Relationship Specialty Start Date End Date Sylvester Javier MD [address] [place], [place] [address]- PCP - General Internal Medicine 11/21/21 Avery Handy DO Primary Staff Physician Cardiology 02/09/19 Shot Core Drill Operator Helper Relationship Specialty Start Date End Date Sylvester Javier MD [address] [facility] [address] PCP - General Internal Medicine 11/21/21 Avery Handy DO Primary Staff Physician Cardiology 02/09/19 Shot Core Drill Operator Helper Relationship Specialty Start Date End Date Sylvester Javier MD [address] [facility] [place] [address] PCP - General Internal Medicine 11/21/21 Avery Handy DO Primary Staff Physician Cardiology 02/09/19 Team Status: Inactive Member Role Status Dates Dr. Sylvester Javier MD Primary Care Provider, Referri ng Provider Active Steven Cardoza MD Attending Provider Active Team Status: Inactive Member Role Status Dates Dr. Sylvester Javier MD Primary Care Provider Active Dr. Yohannes Ricci MD Attending Provider Active Shot Core Drill Operator Helper Relationship Specialty Start Date End Date Sylvester Javier MD [address] [place], [place] [id number] PCP - General Internal Medicine 11/21/21 Avery Handy DO Primary Staff Physician Cardiology 02/09/19 Shot Core Drill Operator Helper Relationship Specialty Start Date End Date Sylvester Javier MD [address] [place] [address] PCP - General Internal Medicine 11/21/21 Avery Handy DO Primary Staff Physician Cardiology 02/09/19 Shot Core Drill Operator Helper Relationship Specialty Start Date End Date Sylvester Javier MD [address] [place] [address] PCP - General Internal Medicine 11/21/21 Avery Handy DO Primary Staff Physician Cardiology 02/09/19 Shot Core Drill Operator Helper Relationship Specialty Start Date End Date Sylvester Javier MD [address] [place] [address] PCP - General Internal Medicine 11/21/21 Avery Handy DO Primary Staff Physician Cardiology 02/09/19 Shot Core Drill Operator Helper Relationship Specialty Start Date End Date Sylvester Javier MD [address] [facility] [address] PCP - General Internal Medicine 11/21/21 Avery Handy DO Primary Staff Physician Cardiology 02/09/19 Inocencio Rainey MD [address] [place] [address] Hematology/Oncology 12/14/24 Shot Core Drill Operator Helper Relationship Specialty Start Date End Date Sylvester Javier MD [address] [place] [address] PCP - General Internal Medicine 11/21/21 Avery Handy DO Primary Staff Physician Cardiology 02/09/19 Inocencio Rainey MD [address] [place] [address] Hematology/Oncology 12/14/24 Shot Core Drill Operator Helper Relationship Specialty Start Date End Date Sylvester Javier MD [address] [place] [address] PCP - General Internal Medicine 11/21/21 Avery Handy DO Primary Staff Physician Cardiology 02/09/19 Inocencio Rainey MD [address] [place] [address] Hematology/Oncology 12/14/24 Shot Core Drill Operator Helper Relationship Specialty Start Date End Date Sylvester Javier MD [address] [place] [address] PCP - General Internal Medicine 11/21/21 Avery Handy DO Primary Staff Physician Cardiology 02/09/19 Inocencio Rainey MD [address] [place] [address] Hematology/Oncology 12/14/24 Shot Core Drill Operator Helper Relationship Specialty Start Date End Date Sylvester Javier MD [address] [place] [address] PCP - General Internal Medicine 11/21/21 Avery Handy DO Primary Staff Physician Cardiology 02/09/19 Inocencio Rainey MD [address] [place] [address] Hematology/Oncology 12/14/24 Shot Core Drill Operator Helper Relationship Specialty Start Date End Date Sylvester Javier MD [address] [place] [address] PCP - General Internal Medicine 11/21/21 Avery Handy DO Primary Staff Physician Cardiology 02/09/19 Inocencio Rainey MD [address] [address] Hematology/Oncology 12/14/24 Shot Core Drill Operator Helper Relationship Specialty Start Date End Date Sylvester Javier MD [address] [place] [address] PCP - General Internal Medicine 11/21/21 Avery Handy DO Primary Staff Physician Cardiology 02/09/19 Inocencio Rainey MD [address] [place] [address] Hematology/Oncology 12/14/24 Shot Core Drill Operator Helper Relationship Specialty Start Date End Date Sylvester Javier MD [address] [place], [place] [address] PCP - General Internal Medicine 11/21/21 Avery Handy DO Primary Staff Physician Cardiology 02/09/19 Inocencio Rainey MD [address] [place] [address] Hematology/Oncology 12/14/24 Team Status: Active Member Role/Relationship Status Dates Dr. Sylvester Javier MD Primary Care Provider Active Team Status: Inactive Member Role/Relationship Status Dates Dr. Sylvester Javier MD Primary Care Provider Active Start: March 07, 2025 End: March 07, 2025 Dr. Sylvester Javier MD Attending Provider Active Start: March 07, 2025 End: March 07, 2025 Team Status: Inactive Member Role/Relationship Status Dates Dr. Sylvester Javier MD Primary Care Provider Active Start: June 02, 2025 End: June 02, 2025 Dr. Sylvester Javier MD Attending Provider Active Start: June 02, 2025 End: June 02, 2025 Goals (unrecognized section and content) Goals may be documented in a n alternate sectionGoals may be documented in an alternate sectionGoals may be documented in an alternate section No data available for this section No data available for this sectionGoals may be documented in an alternate sectionGoals may be documented in an alternate sectionGoals may be documented in an alternate sectionGoals may be documented in an alternate section No data available for this section No data available for this sectionGoals may be documented in an alternate sectionGoals may be documented in an alternate sectionGoals may be documented in an alternate section Care Team (unrecognized sect ion and content) Care Team Personnel Name: KIKI WEN CNM Member Role: Primary Care Physician Address: Address: [address] [place], [place] [address] [address]- Care Team Related Persons Name: NONE, DECLINED Care Team Personnel Name: KIKI WENM Member Role: Primary Care Physician Address: Address: [address] [place] [address] [place] [address]- Care Team Related Persons Name: NONE, DECLINED FOR RECORDS PERTAINING TO PATIENTS WHO ARE OR HAVE BEEN ENROLLED IN A CHEMICAL DEPENDENCY/SUBSTANCEABUSE PROGRAM, SOME INFORMATION MAY BE OMITTED. This clinical summary was aggregated from multiple sources. Caution should be exercised in using it in the provision of clinical care. This summary normalizes information from multiple sources, and as a consequence, information in this document may materially change the coding, format and clinical context of patient data. In addition, data may be omitted in some cases. CLINICAL DECISIONS SHOULD BE BASED ON THE PRIMARY CLINICAL RECORDS. [facility] [employer] provides no warranty or guarantee of the accuracy or completeness of information in this document.
== END 2025-06-02 23:59 | disposition home or self-care (01) ==
PROVIDERS: PCP Internal Medicine; Referring Provider Internal Medicine; Visit Provider Internal Medicine
DX: E78.5 Hyperlipidemia, unspecified (principal); I10 Essential (primary) hypertension; Z95.1 Presence of aortocoronary bypass graft; I95.1 Orthostatic hypotension; R42 Dizziness and giddiness; R41.3 Other amnesia; Z91.81 History of falling; R32 Unspecified urinary incontinence; R73.9 Hyperglycemia, unspecified; N39.0 Urinary tract infection, site not specified; Z12.5 Encounter for screening for malignant neoplasm of prostate; E55.9 Vitamin D deficiency, unspecified
CPT/HCPCS: 36415; 80053; 81001; 82306; 83036; 83735; 84153; 84443; 85025; G0103

== ENCOUNTER → 2025-06-06 | Outpatient (CLI) | payer MEDICARE, SELFPAY ==
[2024-05-12 14:06] VITALS: BMI 36.0
[2025-06-06 11:17] LABS: Mucous, Urine 0 SEEN /hpf (<or=2+); Squamous Epithelial Cells - UA 0 SEEN /hpf (0-5)
[2025-06-06 12:41] LABS: Color, Urine Yellow (Yellow); Glucose, Dipstick Normal (Normal); Ketone-Dipstick Negative (Negative); Leukocyte Esterase-Dipstick Negative /ul (Negative); Nitrite-Dipstick Negative (Negative); Occult Blood-Urine 250 /ul (Negative); Protein-Dipstick 100 mg/dl (Negative); Specific Gravity, Urine 1.015 (1.002-1.030); Urine Bilirubin Dipstick Negative (Negative)
[2025-06-06 12:57] LABS: Red Blood Cells-Urine 5-10 SEEN /hpf (0-5)
== END | disposition home or self-care (01) ==
LOC: MTLAB 11:12
PROVIDERS: PCP Internal Medicine; Referring Provider Internal Medicine; Visit Provider Internal Medicine
DX: N39.0 Urinary tract infection, site not specified (principal)
CPT/HCPCS: 81001; 87077; 87086; 87088

== ENCOUNTER → 2025-08-29 | Outpatient (CLI) | payer MEDICARE, SELFPAY ==
[2024-05-12 14:06] VITALS: BMI 36.0
[2025-08-29 09:39] LABS: Mucous, Urine 0 SEEN /hpf (<or=2+)
[2025-08-29 10:41] LABS: Hematocrit 39.1 % (40-54); Hemoglobin 12.7 g/dL (13.0-16.5); Immature Granulocytes Count 0.040 X10^3/uL (0.0-0.0); Mean Corp Hgb Conc 32.5 g/dL (32-36); Mean Corpuscular Volume 99.5 fL (80-94); Mean Platelet Vol. 9.6 fl (6.2-12.0); NRBC Flagged by Analyzer 0 % (0-5); POSITIVE COUNT YES; POSITIVE DIFFERENTIAL YES; Platelet Count 103 K/mm3 (150-450); RBC Distribution Width CV 13.3 % (11.6-14.6); RBC Distribution Width SD 49.0 fl (35.1-43.9); Red Blood Count 3.93 M/mm3 (4.6-6.2)
[2025-08-29 10:44] LABS: Color, Urine Yellow (Yellow); Glucose, Dipstick Normal (Normal); Ketone-Dipstick Negative (Negative); Leukocyte Esterase-Dipstick 500 /ul (Negative); Nitrite-Dipstick Positive (Negative); Occult Blood-Urine 250 /ul (Negative); Protein-Dipstick 100 mg/dl (Negative); Specific Gravity, Urine 1.020 (1.002-1.030); Urine Bilirubin Dipstick Negative (Negative)
[2025-08-29 10:56] LABS: Anion Gap 8 (5-15); BUN 20 mg/dL (4-19); BUN/Creat Ratio 13.7 RATIO (10-20); Calcium,Total 9.0 mg/dL (7.6-11.0); Carbon Dioxide 26.0 mmol/L (21.0-32.0); Chloride 106 mmol/L (98-108); Glucose 110 mg/dL (70-99); Potassium 4.4 mmol/L (3.3-5.1)
[2025-08-29 10:57] LABS: Differential Indicated SCAN CRITERIA MET; White Blood Count 32.9 K/mm3 (4.4-11.0)
[2025-08-29 11:03] LABS: Red Blood Cells-Urine 10-25 SEEN /hpf (0-5); Squamous Epithelial Cells - UA 0-5 SEEN /hpf (0-5)
== END | disposition home or self-care (01) ==
LOC: LAB 09:34
PROVIDERS: PCP Internal Medicine; Referring Provider Internal Medicine; Visit Provider Internal Medicine
DX: N39.0 Urinary tract infection, site not specified (principal); I95.1 Orthostatic hypotension; Z85.6 Personal history of leukemia; N17.9 Acute kidney failure, unspecified
CPT/HCPCS: 36415; 80048; 81001; 85025

== ENCOUNTER 2025-09-14 12:27 | Observation (INO) | payer MEDICARE, SELFPAY ==
[2024-05-12 14:06] VITALS: BMI 36.0
--- NOTE | 2025-09-05 12:12 | PAT.ANE_ITS ---
Pre-Assessment Diagnosis/Proposed Procedure Planned Operative Procedure(s): (N/A) Cysto,Transurethral Resection Prostate Anesthesia History Anesthesia History - operating room scheduler: Anesthesia History - operating room scheduler Hx Hospitalization Yes: 05/2025 HEART 09/05/25 10:51 PALPITATIONS, BRADYCARDIA Any Problems With Anesthesia No 09/05/25 10:51 Cholinesterase deficiency No 09/05/25 10:51 You/Your Family Experience No 09/05/25 10:51 fever (hyperthermia) with Relationship Recent Exposure to Contagious No 05/12/24 14:06 Disease Does patient have nerve No 09/05/25 10:51 stimulator Patient instructed to have device shut off --Does patient have Pacemaker or ICD? When Was Last Pacemaker Check QUESTION #4 FULL TEXT: You/Your Family Experience fever (hyperthermia) with Anesthesia Last Oral Intake Last Oral intake: Last Oral Intake NPO since Meds taken in AM with sips of water? Meds patient instructed to take am of surgery PONV PONV - operating room scheduler: PONV - operating room scheduler Female No 09/05/25 10:51 HX of Motion Sickness No 09/05/25 10:51 HX of N/V After Surgery No 09/05/25 10:51 Non-Smoker Yes 09/05/25 10:51 Duration of Surgery greater Yes 09/05/25 10:51 than 60 minutes Number of Risk Factors 2 09/05/25 10:51 PONV Score Moderate Risk 09/05/25 10:51 Height & Weight Height & Weight: Anesthesia: Height & Weight Height 6 ft 08/29/25 08:38 Respiratory Assessment Respiratory Assessment - operating room scheduler: Respiratory Tract Infection Hx - operating room scheduler Hx Respiratory Tract Infection No 09/05/25 10:51 STOP Sleep Apnea STOP Sleep Apnea - operating room scheduler: STOP Sleep Apnea - operating room scheduler Hx Hypertension Yes: PER PT, CONTROLLED ON 09/05/25 10:51 MEDS Hx Sleep Apnea No 09/05/25 10:51 CPAP BIPAP Do you snore loudly (louder No 09/05/25 10:51 than talking or can be heard Do you often feel tired/ No 09/05/25 10:51 fatigued/ sleepy during daytime? Has anyone observed you stop No 09/05/25 10:51 breathing during sleep? STOP Results Negative 09/05/25 10:51 QUESTION #5 FULL TEXT : Do you snore loudly (louder than talking or can be heard through closed doors)? 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 Specify any problems Hx of Preganancy in last 3 N/A 09/05/25 10:51 Months Nurse Filling Out Transfusion LISA 09/05/25 10:51 & Questions: Date: 09/05/25 09/05/25 10:51 Time: 10:59 09/05/25 10:51 Patient unable to answer at this time (ie. confused, unrespo /Reproduction History /Reproductive History - operating room scheduler: /Reproductive Hx- operating room scheduler Hx Now Gestational Age (in weeks): EDC: Hx Hx Para Hx Section [facility] Medical History (Updated 09/05/25 @ 11:16 by Kaylin Smiley) Wears dentures Hypertension History of irregular heartbeat UTI (urinary tract infection) Altered mental status Disorientation Leukocytosis Transient visual loss of both eyes Primary osteoarthritis, left shoulder Primary osteoarthritis, right shoulder Left shoulder pain Right shoulder pain Wears partial dentures Wears glasses Depression Alcohol use Ambulates with cane Arthritis Prostate disease Excessive bleeding Easy bruising Injury of back Back pain History of leukemia Injury of head and neck Gastric reflux Former smoker Shortness of breath on exertion History of pain when walking History of edema History of echocardiogram Normal stress echocardiogram History of stress test Cardiology follow-up encounter History of heart attack Thrombocytopenia Old inferior wall myocardial infarction (1990) Abdominal aortic aneurysm (AAA) 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 Instructions: ON HOLD 09/11/25 FOR SURGERY ON 09/14/25 isosorbide mononitrate 30 mg 30 mg PO DAILY HTN #90 ta bs 03/30/25 Unknown Rx tablet,extended release 24 hr lisinopril 5 mg tablet 5 mg PO DAILY HTN #90 tabs 0 08/17/25 Unknown Rx dutasteride 0.5 mg capsule 0.5 mg PO QHS BPH 08/25/25 Unknown History (Avodart) tamsulosin 0.4 mg capsule 0.4 mg PO BID BPH #180 caps 08/25/25 Unknown Rx ciprofloxacin HCl 500 mg tablet 500 mg PO BID UTI #14 tabs 08/29/25 Unknown Rx celecoxib 100 mg capsule (Celebrex) 100 mg PO DAILY MI N pain 09/05/25 Unknown History diphenhydramine 25 1 tab PO QHS SLEEP 09/05/25 Unknown History mg-acetaminophen 500 mg tablet (Acetaminophen PM) Allergy/AdvReac Type Severity Reaction Status Date / Time Penicillins Allergy Hives Verified 09/05/25 10:38 vancomycin Allergy Rash Verified 09/05/25 10:38 carvedilol (From Coreg) AdvReac Intermediate Unknown Verified 09/05/25 10:38 doxycycline AdvReac Intermediate GI Verified 09/05/25 10:38 intolerance Family History Mother Cancer Father Diabetes Heart disease Hypertension Sister Diabetes Surgical History (Updated 09/05/25 @ 11:16 by Kaylin Smiley) History of colonoscopy Hx of cystoscopy (~2023) History of left heart catheterization (05/17/21) History of coronary angioplasty (1990) H/O coronary artery bypass surgery (1991) History of coronary artery stent placement (05/25/21) History of cervical spinal surgery (12/20/19) History of endovascular stent graft for abdominal aortic aneurysm (AAA) (11/07/16) Social History household members: none Smoking Status: Former smoker how long ago did patient quit smoking: Quit 05/2007, smoked 1 ppd until quit. alcohol intake: former substance use type: does not use caffeine: Yes Type: coffee Number of servings: 2 Audit: Pertinent Findings Pertinent Findings EKG Perinent findings: 01/13/2025. Normal sinus rhythm 68 bpm. Echo (EF%) pertinent findings: 06/19/2024. EF 60%. Consult pertinent findings: Cardiology 09/04/2023. Coronary artery disease. Status post bypass graft. Continue aspirin Plavix isosorbide lysis of lisinopril hydrochlorothiazide. Hypertension. Chronic controlled. Recommendation Anesthesia Recommendation Anesthesia recommendation: OPTIMIZED for anesthesia
[2025-09-14] VITALS (15 sets, daily range): BP systolic 123–159; BP diastolic 68–95; PULSE 68–77; RESP 16–18; TEMP 36.2–37.2; O2SAT 93–96; BMI 34.6
--- NOTE | 2025-09-14 09:25 | PCM.PRE.AN2 ---
ASA Classification* ASA Classification ASA Classification: 3 Assessment & Plan Anesthesia* Anesthesia Assessment Anesthesia Assessment: Discussed sedation and/or anesthesia options, risks, benefits, and alternatives with patient/parents/legal guardian/POA. Questions invited. The patient/parents/legal guardian/POA seems to understand and agrees to proceed with anesthesia plan. Reviewed the physical assessment, medical history, allergy history and patient home medications list prior to surgery/procedure/anesthetic and documented any changes. Performed airway and anesthesia risk assessments. Anesthesia Type Anesthesia Type: General Anesthesia Focused Assessment* Airway Assessment Mouth opens: >3 cm Mallampati Score: II Labs Anesthesia Preop lab: CBC WBC, (4.4-11.0) 32.9 K/mm3 H* 08/29/25, 09:38 RBC, (4.6-6.2) 3.93 M/mm3 L 08/29/25, 09:38 Hgb, (13.0-16.5) 12.7 g/dL L 08/29/25, 09:38 Hct, (40-54) 39.1 % L 08/29/25, 09:38 Plt Count, (150-450) 103 K/mm3 L 08/29/25, 09:38 CHEMISTRY Potassium, (3.3-5.1) 4.4 mmol/L 08/29/25, 09:38 Sodium, (133-145) 140 mmol/L 08/29/25, 09:38 Magnesium, (1.5-2.2) 2.0 mg/dL 06/02/25, 10:04 Phosphorus, (2.5-4.9) 1.7 mg/dL L 11/04/16, 10:51 BUN, (4-19) 20 mg/dL H 08/29/25, 09:38 Creatinine, (0.70-1.20) 1.47 mg/dL H 08/29/25, 09:38 Glucose, (70-99) 110 mg/dL H 08/29/25, 09:38 POC Glucose, (74-106) 168 mg/dL H 06/18/24, 16:35 TSH, (0.300-4.200) 3.010 uIU/mL 06/02/25, 10:04 COAG PT, (11.7-14.9) 15.3 SECONDS H 09/23/24, 18:30 Pre-Assessment Diagnosis/Proposed Procedure Planned Operative Procedure(s): (N/A) Cysto,Transurethral Resection Prostate Anesthesia History Anesthesia History - director of procurement: Anesthesia History - director of procurement Hx Hospitalization Yes: 05/2025 HEART 09/05/25 10:51 PALPITATIONS, BRADYCARDIA Any Problems With Anesthesia No 09/05/25 10:51 Cholinesterase deficiency No 09/05/25 10:51 You/Your Family Experience No 09/05/25 10:51 fever (hyperthermia) with Relationship Recent Exposure to Contagious No 05/12/24 14:06 Disease Does patient have nerve No 09/05/25 10:51 stimulator Patient instructed to have device shut off --Does patient have Pacemaker or ICD? When Was Last Pacemaker Check QUESTION #4 FULL TEXT: You/Your Family Experience fever (hyperthermia) with Anesthesia Last Oral Intake Last Oral intake: Last Oral Intake NPO since Meds taken in AM with sips of water? Meds patient instructed to take am of surgery PONV PONV - director of procurement: PONV - director of procurement Female No 09/05/25 10:51 HX of Motion Sickness No 09/05/25 10:51 HX of N/V After Surgery No 09/05/25 10:51 Non-Smoker Yes 09/05/25 10:51 Duration of Surgery greater Yes 09/05/25 10:51 than 60 minutes Number of Risk Factors 2 09/05/25 10:51 PONV Score Moderate Risk 09/05/25 10:51 Height & Weight Height & Weight: Anesthesia: Height & Weight Height 6 ft 08/29/25 08:38 Respiratory Assessment Respiratory Assessment - director of procurement: Respiratory Tract Infection Hx - director of procurement Hx Respiratory Tract Infection No 09/05/25 10:51 STOP Sleep Apnea STOP Sleep Apnea - director of procurement: STOP Sleep Apnea - director of procurement Hx Hypertension Yes: PER PT, CONTROLLED ON 09/05/25 10:51 MEDS Hx Sleep Apnea No 09/05/25 10:51 CPAP BIPAP Do you snore loudly (louder No 09/05/25 10:51 than talking or can be heard Do you often feel tired/ No 09/05/25 10:51 fatigued/ sleepy during daytime? Has anyone observed you stop No 09/05/25 10:51 breathing during sleep? STOP Results Negative 09/05/25 10:51 QUESTION #5 FULL TEXT : Do you snore loudly (louder than talking or can be heard through closed doors)? Tobacco Use History Tobacco Use History - director of procurement: Tobacco Use History - director of procurement Tobacco Use Non-smoker 06/23/24 08:02 Smoking Status Former smoker 09/05/25 10:51 Hx Tobacco Use No 09/05/25 10:51 Years Smoking Packs Smoked per Day Smoking Cessation Date was No - quit smoking greater 09/05/25 10:51 within the last 15 years than 15 years ago Hx Smoking Cessation Date 02/04/05 09/05/25 10:51 Hx Smoking Cessation No 09/05/25 10:51 Counseling Hematologic Medial History Hematologic Hx - director of procurement: Hematologic Medical Hx - lime vat tender Hx of Blood Transfusion No 09/05/25 10:51 Hx of Transfusion in last 3 No 09/05/25 10:51 Months Date of Last Transfusion (if within last 3 months) Ever experience any problems No 09/05/25 10:51 with transfusion(s)? Specify any problems Hx of Preganancy in last 3 N/A 09/05/25 10:51 Months Nurse Filling Out Transfusion MGRIFFITH 09/05/25 10:51 & Questions: Date: 09/05/25 09/05/25 10:51 Time: 10:59 09/05/25 10:51 Patient unable to answer at this time (ie. confused, unrespo /Reproduction History /Reproductive History - director of procurement: /Reproductive Hx- director of procurement Hx Now Gestational Age (in weeks): EDC: Hx Hx Para Hx Section SAB Active Medications Active Medications: Current Medications Generic Name Dose Route Start Last Admin Trade Name Freq PRN Reason Stop Dose Admin Cefazolin Sodium 2 gm/ Sodium 110 mls @ 200 mls/hr 09/14/25 11:00 Chloride IV 09/14/25 11:32 INTRAOP ONE Lactated Ringer's 1,000 mls @ 15 mls/hr 09/14/25 09:15 IV .Q48H JACKIE PFSH Medical History Wears dentures Hypertension History of irregular heartbeat UTI (urinary tract infection) Altered mental status Disorientation Leukocytosis Transient visual loss of both eyes Primary osteoarthritis, left shoulder Primary osteoarthritis, right shoulder Left shoulder pain Right shoulder pain Wears partial dentures Wears glasses Depression Alcohol use Ambulates with cane Arthritis Prostate disease Excessive bleeding Easy bruising Injury of back Back pain History of leukemia Injury of head and neck Gastric reflux Former smoker Shortness of breath on exertion History of pain when walking History of edema History of echocardiogram Normal stress echocardiogram History of stress test Cardiology follow-up encounter History of heart attack Thrombocytopenia Old inferior wall myocardial infarction (1990) Abdominal aortic aneurysm (AAA) 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 Instructions: ON HOLD 09/11/25 FOR SURGERY ON 09/14/25 isosorbide mononitrate 30 mg 30 mg PO DAILY HTN #90 tabs 03/30/25 Unknown Rx tablet,extended release 24 hr lisinopril 5 mg tablet 5 mg PO DAILY HTN #90 tabs 08/17/25 Unknown Rx dutasteride 0.5 mg capsule 0.5 mg PO QHS BPH 08/25/25 Unknown History (Avodart) tamsulosin 0.4 mg capsule 0.4 mg PO BID BPH #180 caps 08/25/25 Unknown Rx ciprofloxacin HCl 500 mg tablet 500 mg PO BID UTI #14 tabs 08/29/25 Unknown Rx celecoxib 100 mg capsule (Celebrex) 100 mg PO DAILY PRN pain 09/05/25 Unknown History diphenhydramine 25 1 tab PO QHS SLEEP 09/05/25 Unknown History mg-acetaminophen 500 mg tablet (Acetaminophen PM) Allergy/AdvReac Type Severity Reaction Status Date / Time Penicillins Allergy Hives Verified 09/05/25 10:38 vancomycin Allergy Rash Verified 09/05/25 10:38 carvedilol (From Coreg) AdvReac Intermediate Unknown Verified 09/05/25 10:38 doxycycline AdvReac Intermediate GI Verified 09/05/25 10:38 intolerance Family History Mother Cancer Father Diabetes Heart disease Hypertension Sister Diabetes Surgical History History of colonoscopy Hx of cystoscopy (~2023) History of left heart catheterization (05/17/21) History of coronary angioplasty (1990) H/O coronary artery bypass surgery (1991) History of coronary artery stent placement (05/25/21) History of cervical spinal surgery (12/20/19) History of endovascular stent graft for abdominal aortic aneurysm (AAA) (11/07/16) Social History household members: none Smoking Status: Former smoker how long ago did patient quit smoking: Quit 05/2007, smoked 1 ppd until quit. alcohol intake: former substance use type: does not use caffeine: Yes Type: coffee Number of servings: 2 Review of Systems (Anesthesia) ROS Narrative System reviewed and no additional complaints, except as documented.
[2025-09-14] MEDS: Lactated Ringers 1,000 ML 15 ML IV (09:39)
--- NOTE | 2025-09-14 11:00 | PROS_PTH ---
PATIENT: SILVIANO GONZALEZ LOC: MS3 U#:[id number] AGE/SX: 80/M ROOM: [facility] [place] RE09/14/[address]: Dr. Pedro Pena MD : 1945 BED: 1 DIS: 09/16/2025 SPEC #: [id number] RECD: 09/14/25 13:36 STATUS: FAROOQ FLORES #: [id number] LITZY: 09/14/25 11:[address]: Pedro Pena DEPT: SURGICAL PATHOLOGY RECD BY: Kyler Huynh ENTERED: 09/14/25 14:57 SP TYPE: TURP OTHR DR: Dr. Opal Javier MD Tissues: A - Prostate, NOS Procedures: Immunohistochemical Stains Surgery Specimen Level IV IHC Stain ADDITIONAL HEADER OPERATION: Cystoscopy, transurethral resection of prostate PRE-OP DIAGNOSIS: Benign prostatic hyperplasia with lower urinary tract symptoms, urge incontinence TISSUE SUBMITTED: A- Prostate tissue MICROSCOPIC DIAGNOSIS A. Prostate, transurethral resection: * Benign prostatic tissue with stromal hyperplasia. * Atypical lymphoid aggregates - see Comments. COMMENT: The CBC history of absolute lymphocytosis with atypical lymphocytes is noted. Further evaluation of the lymphoid aggregates in this specimen with IHC and POWER was performed. There is a mixture of CD3+CD5+ T-lymphocytes and CD20+ B-lymphocytes, with B-lymphocytes predominant. There is also possible weak CD5 expression on the B-lymphocytes. CD10+ follicular centers are not identified, although CD23+ follicular dendritic meshworks are present. BCL1 and BCL6 are negative. BCL2 is diffusely positive. Ki67 is not increased. POWER for kappa and lambda light chains is polytypic, with a ratio of 3:2. 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 Recommend correlation with flow cytometric analysis of peripheral blood and lymph node histomorphology if feasible. COMMENT Selected slides/images were reviewed in intradepartmental consultation by Dr Jacuqelin Hay (hematopathology division, [facility]). The diagnosis was called to Dr Pena 09/21/25. MICROSCOPIC DESCRIPTION Slides are reviewed. All matched controls reacted appropriately. These tests were developed and their performance characteristics determined by [facility]. They may not have been cleared or approved by the U.S. Food and Drug Administration. The FDA has determined that such clearance or approval is not necessary. The above immunohistochemical markers and/or special stains have been reviewed by the Pathologist. All controls show appropriate reactivity. (kappa and lambda POWER) All immunohistochemistry, in situ hybridization, and histochemical tests were developed by and are performed at the [facility], [address] [place] [address]. All Immunofluorescent (IF) tests were developed by and are performed at the [facility], [address] [place] [address], [place] [address]. All tests reported here, except those addressing HER2 overexpression as a predictive marker, have not been cleared by or approved by the US Food and Drug Administration (FDA). The laboratory is regulated under CLIA as qualified to perform high-complexity testing. The tests are used for clinical purposes. They should not be regarded as investigational or for research. GROSS DESCRIPTION A. Received in formalin labeled with the patient's name and date of . Designated as "prostate tissue" is a 10.6 g, 6.4 x 5.3 x 1.5 cm aggregate of irregular, hutchins, rubbery and cauterized tissue fragments. Entirely submitted in 8 cassettes. [place] 09/14/2025 CPT:[id number]
[2025-09-14] MEDS: Cefazolin 1 GM/5 ML Vial 2 GM IV (11:22)
[2025-09-14] MEDS: Lidocaine 1% (5 ml sdv) 5 ML Vial IV (11:26)
[2025-09-14] MEDS: fentaNYL 100 MCG/2 ML Ampul IV (11:39)
--- NOTE | 2025-09-14 12:30 | PCM.DC ---
Discharge Instructions DC O2, CPAP, BIPAP needs Home O2 Discharge instructions: No Dressing / Incision Discharge Activity: Return to Normal Activity and May Not Drive (while taking narcotic pain medications.) Dressing / Incision Call your doctor if you observe: Fever of 101 or Higher Follow Up Care Please Follow Up With: Pedro Pena MD When: Call [phone] for an appointment Test Results: Test results from this visit will be discussed in further detail at your follow-up appointment, if applicable. Discharge Plan Admission Primary Reason for Your Visit: turp Attending Provider: Pedro Pena Primary Care Provider: Opal Javier Instructions Print Language: [place] Discharge Orders/Prescriptions Prescriptions: Continued diphenhydramine-acetaminophen [Acetaminophen PM] 25-500 mg tablet 1 tab PO QHS celecoxib [Celebrex] 100 mg capsule 100 mg PO DAILY PRN (Reason: pain) isosorbide mononitrate 30 mg tablet extended release 24 hr 30 mg PO DAILY Qty: 90 3RF lisinopril 5 mg tablet 5 mg PO DAILY Qty: 90 3RF ciprofloxacin HCl 500 mg tablet 500 mg PO BID Qty: 14 0RF Held clopidogrel [Plavix] 75 mg tablet 75 mg PO DAILY Qty: 90 3RF Hold Instructions: Resume on 09/28/25. Discontinued dutasteride [Avodart] 0.5 mg capsule 0.5 mg PO QHS No Action tamsulosin 0.4 mg capsule 0.4 mg PO BID Qty: 180 3RF Referrals / Follow Up: Opal Javier MD [Primary Care Provider, Internal Medicine - [facility]] Disposition Disposition (needs filled in before D/C Order can be placed): Home, Self Care
--- NOTE | 2025-09-14 12:30 | PCM.OPRPT ---
Operative Report (Standard) Operative Information Date of Procedure: 09/14/25 Pre-Operative Diagnosis: BPH with obstruction Post-Operative Diagnosis: The same Surgery/Procedure Performed: Transurethral section of prostate medical insurance verifier: No Type of Anesthesia: General RN Documented Start/Stop Times: Operation Date: 09/14/25 11:00 Case Time Into Pre-Op 09/14/25 09:02 Out of Pre-Op 09/14/25 11:15 Anesthesia Start 09/14/25 11:19 Into Room 09/14/25 11:19 Procedure Start 09/14/25 11:35 Procedure End 09/14/25 12:20 Anesthesia End 09/14/25 12:28 Out of Room 09/14/25 12:28 Procedure Start Time: 11:35 Procedure Stop Time: 12:20 Select all DRAINS/GRAFTS/IMPLANTS that apply: Drains Drain details: 22 [place] three-way [place] Estimated Blood Loss: 10 cc Specimen collected: Yes Description of specimen(s) removed: Prostate tissue Description of surgery: Patient was taken back to the operating room after smooth induction of anesthesia he was placed in dorsolithotomy position urethro penis and testicles were prepped and draped in usual fashion with the bladder with a 26 [place] continuous-flow bipolar Olympus bipolar resectoscope identified the anatomy of the right left ureteral orifice he had a large median lobe he had bilateral obstructing tissue I then started with the resection of the median lobe I then resect the right lobe of the prostate resect the left lobe of the prostate and then very carefully resected all the apical tissue got all the chips of the bladder cauterized extensively to obtain hemostasis we did a flow test had a wide open flow I then switched back down to a 24 [place] resectoscope and continued the resection until had a nice open channel good flow and the sphincter was intact put the catheter in the bladder with a 30 cc balloon continuous irrigation anesthetic was reversed takeback to the PACU in stable condition and he will be kept overnight for irrigation we will try a voiding trial tomorrow Surgical Findings: Obstructive prostate resected completely Complications Complications: No Admit VTE Documentation VTE Present on Admission: No VTE Mechan Device Prophylaxis: SCD's VTE Pharm Prophylaxis ordered?: No
--- NOTE | 2025-09-14 12:33 | PCM.POST.ANE ---
Anesthesia: Postop Eval I Current Vital Signs Temperature: 97.3 F Pulse Rate: 76 Blood Pressure: 142/71 Respiratory Rate: 16 Pulse Ox: 94 Oxygen Delivery Method: Room Air Assessment Airway patent: Yes Spontaneous unlabored respirations: Yes Mental status: Awake and Calm nausea: No Vomiting: No Anesthesia Complication: No Fluid Hydration Crystalloid volume administer (ml): 700 Total IV fluid infused: 700 Progress Note Anesthesia document: Postop Eval 1 completed: Yes
--- NOTE | 2025-09-14 13:34 | POSTOPAN2_ITS ---
Anesthesia Postop Eval I Sum Postop Eval Completion status Anesthesia document: Postop Eval 1 completed: Yes Anesthesia Postop Eval I Summary Anesthesia Postop Eval I Summary: Anesthesia Postop Eval I: Assessment Summary Airway patent Yes 09/14/25 12:34 TAR HEAT EXCHANGER CLEANER.[email or web address] Spontaneous unlabored Yes 09/14/25 12:34 TAR HEAT EXCHANGER CLEANER.GDOTT respirations Mental status Awake,Calm 09/14/25 12:34 TAR HEAT EXCHANGER CLEANER.GDOTT nausea No 09/14/25 12:34 TAR HEAT EXCHANGER CLEANER.GDOTT Vomiting No 09/14/25 12:34 TAR HEAT EXCHANGER CLEANER.GDOTT Anesthesia Postop Eval I: Fluid Summary Crystalloid volume administer 700 09/14/25 12:34 TAR HEAT EXCHANGER CLEANER.GDOTT (ml) Colloids volume administered ( ml) Blood Product volume administered (ml) Total IV fluid infused 700 09/14/25 12:34 TAR HEAT EXCHANGER CLEANER.GDOTT Anesthesia Postop Eval I: Summary Notes Anesthesia Complication No 09/14/25 12:34 TAR HEAT EXCHANGER CLEANER.GDOTT Anesthesia Complication Comment: Post-operative progress note Anesthesia: Postop Eval II Evaluation Mental status: Awake Pain Level: 0 nausea: No Vomiting: No
--- NOTE | 2025-09-14 13:34 | PCM.POSTANE2 ---
Anesthesia Postop Eval I Sum Postop Eval Completion status Anesthesia document: Postop Eval 1 completed: Yes Anesthesia Postop Eval I Summary Anesthesia Postop Eval I Summary: Anesthesia Postop Eval I: Assessment Summary Airway patent Yes 09/14/25 12:34 CANAL [email or web address].[email or web address] Spontaneous unlabored Yes 09/14/25 12:34 CANAL TENDER.[email or web address] respirations Mental status Awake,Calm 09/14/25 12:34 CANAL [email or web address].[email or web address] nausea No 09/14/25 12:34 CANAL TENDER.GDOTT Vomiting No 09/14/25 12:34 CANAL TENDER.GDOTT Anesthesia Postop Eval I: Fluid Summary Crystalloid volume administer 700 09/14/25 12:34 CANAL TENDER.GDOTT (ml) Colloids volume administered ( ml) Blood Product volume administered (ml) Total IV fluid infused 700 09/14/25 12:34 CANAL TENDER.GDOTT Anesthesia Postop Eval I: Summary Notes Anesthesia Complication No 09/14/25 12:34 CANAL [email or web address].[email or web address] Anesthesia Complication Comment: Post-operative progress note Anesthesia: Postop Eval II Evaluation Mental status: Awake Pain Level: 0 nausea: No Vomiting: No
[2025-09-14] MEDS: 0.9% Saline Lock 10 ML Syringe IV (19:50)
[2025-09-14] MEDS: 0.9% Normal Saline (1000mL) 1,000 ML 125 ML IV (19:50)
[2025-09-15] VITALS (7 sets, daily range): BP systolic 123–167; BP diastolic 77–96; PULSE 66–96; RESP 15–18; TEMP 36.4–36.9; O2SAT 95–98
[2025-09-15] MEDS: 0.9% Normal Saline (1000mL) 1,000 ML 125 ML IV ×2 (03:31→11:54)
[2025-09-15 06:19] LABS: Hematocrit 33.0 % (40-54); Hemoglobin 11.0 g/dL (13.0-16.5); Immature Granulocytes Count 0.040 X10^3/uL (0.0-0.0); Mean Corp Hgb Conc 33.3 g/dL (32-36); Mean Corpuscular Volume 98.2 fL (80-94); Mean Platelet Vol. 9.4 fl (6.2-12.0); NRBC Flagged by Analyzer 0 % (0-5); POSITIVE COUNT YES; POSITIVE DIFFERENTIAL YES; POSITIVE MORPHOLOGY YES; Platelet Count 77 K/mm3 (150-450); RBC Distribution Width CV 13.3 % (11.6-14.6); RBC Distribution Width SD 47.5 fl (35.1-43.9); Red Blood Count 3.36 M/mm3 (4.6-6.2); White Blood Count 25.1 K/mm3 (4.4-11.0)
[2025-09-15 06:31] LABS: Differential Indicated SCAN CRITERIA MET
[2025-09-15 06:51] LABS: Anion Gap 7 (5-15); BUN 18 mg/dL (4-19); BUN/Creat Ratio 12.5 RATIO (10-20); Calcium,Total 8.2 mg/dL (7.6-11.0); Carbon Dioxide 23.8 mmol/L (21.0-32.0); Chloride 107 mmol/L (98-108); Estimated Creatinine Clearance 53.45 ml/min (50-250); Glucose 104 mg/dL (70-99); Potassium 4.5 mmol/L (3.3-5.1)
[2025-09-15 07:13] LABS: Smudge Cells 1+
--- NOTE | 2025-09-15 07:21 | PN.URO_ITS ---
Subjective Subjective Status post TURP doing well [place] catheter removed back will come back later this afternoon for checkup possible home later today Objective Data Objective Data Vital Signs: Vital Signs Temp Pulse Resp BP Pulse Ox O2 Del Method 98.4 F 69 18 155/88 H 95 Room Air 09/15/25 05:50 09/15/25 05:50 09/15/25 05:50 09/15/25 05:50 09/15/25 05:50 09/15/25 05:50 Oxygen Delivery Method Room Air Weight: 119 kg Body Mass Index (BMI) 34.6 Intake & Output: Intake and Output for Last 24 Hours 09/13/25 09/14/25 09/15/25 23:59 23:59 23:59 Intake Total 426 / 426 960.42 / 960.42 Output Total 1210 / 1210 1200 / 1200 Balance -784 / -784 -239.58 / -239.58 Lab / Micro Data 09/15/25 05:37 09/15/25 05:37 Labs: Laboratory Results - last 24 hr 09/15/25 05:37: WBC 25.1 H, RBC 3.36 L, Hgb 11.0 L, Hct 33.0 L, MCV 98.2 H, MCH 32.7 H, MCHC 33.3, RDW Std Deviation 47.5 H, RDW Coeff of Andrey 13.3, Plt Count 77 L, MPV 9.4, Immature Gran % (Auto) 0.200, Neut % (Auto) 14.4 L, Lymph % (Auto) 82.7 H, [place] % (Auto) 1.6, Eos % (Auto) 0.9, Baso % (Auto) 0.2, Absolute Neuts (auto) 3.6, Absolute Lymphs (auto) 20.75 H, Nucleated RBC % 0, Diff Path Review Not Reportable, Smudge Cells 1+ H, Platelet Estimate SLT DEC, Sodium 139, Potassium 4.5, Chloride 107, Carbon Dioxide 23.8, Anion Gap 7, BUN 18, C reatinine 1.44 H, Estim Creat Clear Calc 53.45, Est GFR (MDRD) Non-Af 49 L, BUN/Creatinine Ratio 12.5, Glucose 104 H, Calcium 8.2
--- NOTE | 2025-09-15 13:13 | CHAPLAIN ---
Type of Pastoral Visit _x__ Initial Visit ___ Follow-up Visit ___ On-call Visit ___ General Patient Visit ___ Spiritual Assessment ___ Family Conference ___ Bereavement ___ Rapid Response ___ Code Blue ___ Other (describe below) Pastoral Care Referral From _x__ Patient ___ Family ___ Nurse ___ Physician ___ Curriculum And Assessment Coordinator ___ Writing Manager ___ Other (describe below) Sacrament/Intervention _x__ Active listening ___ Anointing ___ Scientology ___ Bereavement ___ Communion _x__ Jil exploration ___ ___ Life review _x__ Prayer ___ Reconciliation ___ Sacrament of Sick _x__ Supportive presence ___ Wedding ___ Other (describe below) Pastoral Comments patient is welcoming and talkative; pt describes his goal of being discharged; pt has concerns about health of his daughter and about the catholic and declining attendance; pt uses humor to cope with his situation; pt welcomes prayer and presence; pt would have continued talking but students and RN came to do a procedure at this time
--- NOTE | 2025-09-15 13:52 | CASEMGMT ---
GALLAGHER Met with patient to complete GALLAGHER form. GALLAGHER form and its content were verbally explained and patient's questions were answered to the best of my ability. Patient voiced understanding and signed GALLAGHER form. Patient provided a copy of signed GALLAGHER form and original placed in patient's chart. Patient had no further questions. Siobhan Felix, Discharge Planning Asst
--- NOTE | 2025-09-15 19:26 | NURSING ---
Family states they are unable to come get pt this evening, but will be here in the morning to pick her up.
--- NOTE | 2025-09-15 19:26 | NURSING ---
informed by Lucian JACKSON that pt's family is unable to pick patient up at this time and will be in tomorrow morning.
[2025-09-16 06:07] LABS: Hematocrit 33.9 % (40-54); Hemoglobin 11.5 g/dL (13.0-16.5); Immature Granulocytes Count 0.040 X10^3/uL (0.0-0.0); Mean Corp Hgb Conc 33.9 g/dL (32-36); Mean Corpuscular Volume 96.6 fL (80-94); Mean Platelet Vol. 9.5 fl (6.2-12.0); NRBC Flagged by Analyzer 0 % (0-5); POSITIVE COUNT YES; POSITIVE DIFFERENTIAL YES; Platelet Count 85 K/mm3 (150-450); RBC Distribution Width CV 13.5 % (11.6-14.6); RBC Distribution Width SD 47.6 fl (35.1-43.9); Red Blood Count 3.51 M/mm3 (4.6-6.2); White Blood Count 26.5 K/mm3 (4.4-11.0)
[2025-09-16 06:10] LABS: Differential Indicated SCAN CRITERIA MET
[2025-09-16 06:25] LABS: Anion Gap 9 (5-15); BUN 17 mg/dL (4-19); BUN/Creat Ratio 11.9 RATIO (10-20); Calcium,Total 8.2 mg/dL (7.6-11.0); Carbon Dioxide 22.6 mmol/L (21.0-32.0); Chloride 107 mmol/L (98-108); Estimated Creatinine Clearance 54.97 ml/min (50-250); Glucose 101 mg/dL (70-99); Potassium 4.2 mmol/L (3.3-5.1)
[2025-09-16 06:40] LABS: Differential Comment SCANNED
[2025-09-16 07:25] VITALS: O2SAT 94
[2025-09-16 08:19] VITALS: BP 135/72; PULSE 73; RESP 16; TEMP 36.8; O2SAT 97
--- NOTE | 2025-09-22 12:19 | HP.PCM_ITS ---
HPI - General General Date of Admission: 09/14/25 Date of Service: 09/14/25 HPI Narrative SILVIANO GONZALEZ, is a 80 M who present Presents for a trans urethral resection of the prostate. Please see my office notes for full details but we talk to the patient regarding the surgery house. It’s gonna be done with afterwards and expected recovery All questions answer the patient and consent form and plan to go to surgery today [facility] Medical History Wears dentures Hypertension History of irregular heartbeat UTI (urinary tract infection) Altered mental status Disorientation Leukocytosis Transient visual loss of both eyes Primary osteoarthritis, left shoulder Primary osteoarthritis, right shoulder Left shoulder pain Right shoulder pain Wears partial dentures Wears glasses Depression Alcohol use Ambulates with cane Arthritis Prostate disease Excessive bleeding Easy bruising Injury of back Back pain History of leukemia Injury of head and neck Gastric reflux Former smoker Shortness of breath on exertion History of pain when walking History of edema History of echocardiogram Normal stress echocardiogram History of stress test Cardiology follow-up encounter History of heart attack Thrombocytopenia Old inferior wall myocardial infarction (1990) Abdominal aortic aneurysm (AAA) 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 Instructions: Resume on 09/28/25. isosorbide mononitrate 30 mg 30 mg PO DAILY HTN #90 ta bs 03/30/25 09/14/25 07:00 Rx tablet,extended release 24 hr lisinopril 5 mg tablet 5 mg PO DAILY HTN #90 tabs 0 08/17/25 09/13/25 Rx tamsulosin 0.4 mg capsule 0.4 mg PO BID BPH #180 caps 08/25/25 09/13/25 Rx ciprofloxacin HCl 500 mg tablet 500 mg PO BID UTI #14 tabs 08/29/25 09/13/25 Rx celecoxib 100 mg capsule (Celebrex) 100 mg PO DAILY OH N pain 09/05/25 09/13/25 History diphenhydramine 25 1 tab PO QHS SLEEP 09/05/25 09/13/25 History mg-acetaminophen 500 mg tablet (Acetaminophen PM) Allergy/AdvReac Type Severity Reaction Status Date / Time Penicillins Allergy Hives Verified 09/05/25 10:38 vancomycin Allergy Rash Verified 09/05/25 10:38 carvedilol (From Coreg) AdvReac Intermediate Unknown Verified 09/05/25 10:38 doxycycline AdvReac Intermediate GI Verified 09/05/25 10:38 intolerance Family History Mother Cancer Father Diabetes Heart disease Hypertension Sister Diabetes Surgical History History of colonoscopy Hx of cystoscopy (~2023) History of left heart catheterization (05/17/21) History of coronary angioplasty (1990) H/O coronary artery bypass surgery (1991) History of coronary artery stent placement (05/25/21) History of cervical spinal surgery (12/20/19) History of endovascular stent graft for abdominal aortic aneurysm (AAA) (11/07/16) Social History household members: none Smoking Status: Former smoker how long ago did patient quit smoking: Quit 05/2007, smoked 1 ppd until quit. alcohol intake: former substance use type: does not use caffeine: Yes Type: coffee Number of servings: 2 Vital Signs Vital Signs Vital Signs: Weight Weight: 119 kg Body Mass Index (BMI) 34.6 Results Lab / Micro Data 09/16/25 05:07 09/16/25 05:07
== END 2025-09-16 09:46 | disposition home or self-care (01) ==
LOC: SDC 15:59 → MS3 15:59
PROVIDERS: Admitting Provider Urology; PCP Internal Medicine; Referring Provider Urology; Visit Provider Urology
DX: N40.1 Benign prostatic hyperplasia with lower urinary tract symptoms (principal); Z79.02 Long term (current) use of antithrombotics/antiplatelets; I25.10 Atherosclerotic heart disease of native coronary artery without angina pectoris; E78.5 Hyperlipidemia, unspecified; Z87.891 Personal history of nicotine dependence; I10 Essential (primary) hypertension; N13.8 Other obstructive and reflux uropathy; Z79.899 Other long term (current) drug therapy
CPT/HCPCS: 52601; 00914; 36415; 80048; 85025; 88305; 88341; 88342; 96360; 96361; 99221; A4216; G0378; J2405

== ENCOUNTER → 2025-09-19 | Outpatient (CLI) | payer MEDICARE, SELFPAY ==
[2024-05-12 14:06] VITALS: BMI 36.0
== END | disposition home or self-care (01) ==
PROVIDERS: PCP Internal Medicine; Referring Provider Urology; Visit Provider Urology
DX: N39.0 Urinary tract infection, site not specified (principal)
CPT/HCPCS: 87086